=== PATIENT | male | born 1965 | race Caucasian/White ===

== ENCOUNTER 2020-05-29 16:56 | Outpatient (REF) | payer OTHER, SELFPAY ==
--- NOTE | 2020-05-29 | XR_ITS ---
EXAMINATION: XR CHEST CLINICAL INFORMATION: Bronchitis COMPARISON: CXR from 09/13/2019. Chest CT from 12/22/2019. TECHNIQUE: 2 views of the chest were obtained. FINDINGS: The emphysematous lungs are well expanded. There is chronic thickening of the bronchial altman. The findings are consistent with chronic obstructive pulmonary disease. No acute consolidation, pleural effusion or pneumothorax. A skinfold projects over the right upper chest on the frontal radiograph. Cardiomediastinal silhouette silhouette has normal size and contour. There is multilevel osteophyte/enthesophyte formation of the thoracic spine. IMPRESSION: * No evidence of pneumonia. No acute abnormalities. * Pulmonary emphysema and chronic bronchial wall thickening are noted. These findings are consistent with chronic obstructive pulmonary disease.
== END 2020-05-29 16:57 | disposition home or self-care (01) ==
LOC: HO.XRAY 16:56
PROVIDERS: PCP Internal Medicine; Visit Provider Internal Medicine
DX: J40 Bronchitis, not specified as acute or chronic (principal)
CPT/HCPCS: 71046

== ENCOUNTER → 2020-07-05 10:45 | Outpatient (BNVA) | payer OTHER, SELFPAY | PROVIDERS: PCP Internal Medicine; Visit Provider Internal Medicine Pulmonary Disease | DX: Z76.89 Persons encountering health services in other specified circumstances (principal) ==

== ENCOUNTER 2020-07-05 12:54 | Outpatient (REF) | payer OTHER, SELFPAY ==
--- NOTE | 2020-07-05 14:34 | PFT_ITS ---
Forced vital capacity normal. FEV1 moderately reduced. WPD07-20 is markedly reduced. MVV slightly reduced. Post bronchodilator therapy, there is a significant improvement in FVC, [id number], and MVV. Total lung capacity and residual volume normal. Diffusion capacity normal. CONCLUSION: Moderately severe obstructive airway disorder with significant improvement after bronchodilator therapy. These findings are consistent with asthma/COPD overlap syndrome. Clinical correlation recommended. MD EMELI Haley/IVONNE / [id number]
== END 2020-07-05 12:55 | disposition home or self-care (01) ==
LOC: HO.RESP 12:54
PROVIDERS: PCP Internal Medicine; Visit Provider Internal Medicine Pulmonary Disease
DX: J44.9 Chronic obstructive pulmonary disease, unspecified (principal); F17.210 Nicotine dependence, cigarettes, uncomplicated
CPT/HCPCS: 94060; 94727; 94729

== ENCOUNTER 2020-07-16 16:48 | Outpatient (REF) | payer OTHER, SELFPAY ==
--- NOTE | 2020-07-16 16:48 | CT_ITS ---
EXAMINATION: CT CHEST WITHOUT CONTRAST CLINICAL INFORMATION: Emphysema. Abnormal findings on lung field. COMPARISON: Chest x-ray 05/29/[address] chest 12/22/2019 TECHNIQUE: Multidetector volumetric CT imaging of the chest was done. Axial MIP volume rendering provided. Sagittal and coronal reformatted images were obtained. This CT examination was performed using dose optimization techniques as appropriate, variously including the following: *Automated exposure control *Adjustment of mA and/or kV according to patient size (this includes techniques or standardized protocols for targeted exams where dose is matched to indication/reason for exam; i.e. 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 LUNGS: There is paraseptal and mild centrilobular emphysema. There is a tree-in-bud appearance in the right upper lobe posterior segment image 242/7, right middle lobe image 290/7. There is a 4 mm intrafissural left upper lobe nodule, 5 mm nodule along the anterior mediastinal left upper lobe axial image 223/7, subpleural 4 mm nodule in the lingula. Previously visualized small right upper lobe pulmonary nodules are not visualized. There is 5 mm nodular thickening right major fissure axial image 289/7. No focal consolidation visualized. There is mild bronchial wall thickening involving both upper and lower lobes likely related to medium and small airway disease. MEDIASTINUM: There are small shotty lymph nodes in the aortic window and the precarinal space with short axis measurements of 8 mm and 6 mm respectively on axial image 23/3. Heart size and the great vessels are normal caliber. There are coronary artery calcifications present. No pericardial effusion seen. PLEURA: There is no pleural effusion. No pleural mass or thickening. AXILLA: No lymphadenopathy. UPPER ABDOMEN: Visualized liver, pancreas and bilateral adrenal glands are unremarkable. Mild splenomegaly is again visualized. Previously visualized posterior segment right hepatic lobe mass is not included in the [id number] at this time. OSSEOUS STRUCTURES: No lytic or sclerotic process seen. There is moderate ventral spondylosis mid dorsal spine. CT/CT chest wo con IMPRESSION: Emphysema with tree-in-bud appearance and scattered pulmonary nodules in the right middle lobe and lingula are stable. The right upper lobe small nodules have resolved or not visualized at this time. No new nodules or new findings seen. There are reactionary lymph nodes in the mediastinum within normal limits.
== END 2020-07-16 16:49 | disposition home or self-care (01) ==
LOC: HO.CT 16:48
PROVIDERS: Visit Provider Internal Medicine Pulmonary Disease
DX: R91.8 Other nonspecific abnormal finding of lung field (principal)
CPT/HCPCS: 71250

== ENCOUNTER → 2020-07-23 15:58 | Outpatient (BNVA) | payer OTHER, SELFPAY | PROVIDERS: PCP Internal Medicine; Visit Provider Internal Medicine Pulmonary Disease | DX: Z76.89 Persons encountering health services in other specified circumstances (principal) ==

== ENCOUNTER 2020-08-21 14:23 | Outpatient (REF) | payer OTHER, SELFPAY | END 2020-08-21 14:24 | disposition home or self-care (01) | LOC: HO.HOSX 14:23 | PROVIDERS: Visit Provider Orthopaedic Surgery | DX: Z13.89 Encounter for screening for other disorder (principal) ==

== ENCOUNTER 2020-08-22 09:32 | Outpatient (REF) | payer OTHER, SELFPAY ==
--- NOTE | 2020-08-22 09:37 | XR_ITS ---
EXAMINATION: XR SHOULDER, RIGHT CLINICAL INFORMATION: Pain right shoulder. COMPARISON: Radiographs right shoulder 06/13/2016 TECHNIQUE: Right shoulder is imaged in 3 views. FINDINGS: There is no fracture, dislocation, or destructive process. The glenohumeral joint is normal. The acromioclavicular alignment is normal. There is some borderline spurring at the inferolateral acromion and greater tuberosity. No definite rotator cuff calcifications. XR/XR shoulder RT min 2V IMPRESSION: Minor scarring inferolateral acromium and greater tuberosity. No definite rotator cuff calcifications.
== END 2020-08-22 09:33 | disposition home or self-care (01) ==
LOC: HO.HOSX 09:32
PROVIDERS: Visit Provider Orthopaedic Surgery
DX: M75.121 Complete rotator cuff tear or rupture of right shoulder, not specified as traumatic (principal)
CPT/HCPCS: 73030

== ENCOUNTER 2020-08-30 13:16 | Outpatient (REF) | payer OTHER, SELFPAY ==
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
--- NOTE | 2020-08-30 13:40 | FL_ITS ---
EXAMINATION: XR ARTHROGRAM SHOULDER, RIGHT CLINICAL INFORMATION: Impingement syndrome. COMPARISON: 08/22/2020 TECHNIQUE: Fluoroscopically guided intra-articular injection of the right shoulder. FINDINGS: Informed consent was obtained from the patient prior to the procedure. During this process, the procedure and potential alternatives were explained, along with the intended outcome and benefits. The risks of the procedure, as well as the risk of not doing the procedure, were discussed. The patient was given the opportunity to ask questions regarding the procedure and appeared competent to make medical decisions. A signed consent form which documents this discussion was placed in the medical record. Using sterile technique and fluoroscopic guidance a 22-gauge spinal needle was directed down onto the inferior aspect of the right glenohumeral joint. Small amount of contrast was injected demonstrating intra-articular positioning of the needle. A total of 19 mL of a mixture of 20 mL of sterile saline with 0.1 mL of Gadavist was then instilled into the right shoulder joint space. Patient tolerated procedure without difficulty. FLUOROSCOPY TIME: 0.4 minutes DOSE AREA PRODUCT: 1.757 Gy-cm2 IMAGES: 2 images. FL/FL arthrogram shoulder RT IMPRESSION: Right shoulder intra-articular injection for MRI.
== END 2020-08-30 13:17 | disposition home or self-care (01) ==
LOC: HO.XRAY 13:16
PROVIDERS: Visit Provider Orthopaedic Surgery
DX: M75.41 Impingement syndrome of right shoulder (principal); M75.121 Complete rotator cuff tear or rupture of right shoulder, not specified as traumatic
CPT/HCPCS: 23350; 73040; 73222; A9585

== ENCOUNTER → 2020-10-02 08:24 | Outpatient (BNVA) | payer OTHER, SELFPAY | PROVIDERS: PCP Internal Medicine; Visit Provider Orthopaedic Surgery ==

== ENCOUNTER 2020-10-25 06:15 | Day surgery (SDC) | payer OTHER, SELFPAY ==
[2020-10-18 19:34] VITALS: BMI 27.1
--- NOTE | 2020-10-24 10:44 | P.CONAN_ITS ---
Documented by User: Naina Sheikh 10/24/20 10:48 HPI - Anesthesia Eval Consult details Narrative: 55yo for Right Shoulder Rotator Cuff Repair [facility] Active Problems Active Problems: All Active Problems (Updated 10/18/20 @ 19:37 by Laney Brumfield RN) COPD (chronic obstructive pulmonary disease) (Acute) Pulmonary nodules (Acute) Complete tear of right rotator cuff (Acute) Past Medical History Medical History (Updated 10/24/20 @ 10:46 by Naina Sheikh) Anemia with low platelet count COPD (chronic obstructive pulmonary disease) ETOH abuse Pulmonary nodules Surgical History Surgical History History of colonoscopy History of liver biopsy Social History Social History (Updated 08/22/20 @ 09:48 by Gayle Santana CMA) Smoking Status: Current every day smoker Cigarettes Per Day: 10 Years Smoked: 35 yrs Smoked in Last 30 Days: Yes Patient Interested in Nicotine Replacement: No Patient Given Instructions on How to Stop Smoking: No Use of substances other than those prescribed or required for medical reasons: No Advance Directives: No Advance Directives Information Provided: No Advance Directives on File: No Current occupational status: employed 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 These findings are consistent with asthma/COPD overlap syndrome. Assessment and Plan Assessment Anesthesia Assessment: Chart Reviewed Documented by User: Maurice Majano MD 10/25/20 08:17 [facility] Past Medical History Medical History (Updated 10/24/20 @ 10:46 by Naina Sheikh) Anemia with low platelet count COPD (chronic obstructive pulmonary disease) ETOH abuse Pulmonary nodules Surgical History Surgical History History of colonoscopy History of liver biopsy Social History Social History (Updated 08/22/20 @ 09:48 by Gayle Santana CMA) Smoking Status: Current every day smoker Cigarettes Per Day: 10 Years Smoked: 35 yrs Smoked in Last 30 Days: Yes Patient Interested in Nicotine Replacement: No Patient Given Instructions on How to Stop Smoking: No Use of substances other than those prescribed or required for medical reasons: No Advance Directives: No Advance Directives Information Provided: No Advance Directives on File: No Current occupational status: employed 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 Meds Allergies Allergy/AdvReac Type Severity Reaction Status Date / Time No Known Allergies Allergy Verified 10/18/20 19:32 Home Medications Medication Instructions Recorded Confirmed Last Taken Type albuterol sulfate 90 mcg/actuation 2 puff PO QID 07/05/20 10/18/20 Unknown History aerosol inhaler Exam Airway Mallampati Class: II TM Dist: >3cm Neck ROM: Full Denture: Upper Loose/Missing/Broken Teeth: Yes Heart: RRR Lungs: Cough, NL Assessment and Plan Assessment Anesthesia Assessment: Anesthesia Plan Discussed and Chart Reviewed Final Anesthetic Review NPO: Yes ASA Class: III Final Preanesthetic Review: No Changes in Pt Med Stat, Meds/Allgs Chart Reviewed, Consent Obtained/Reviewed and Anes Risks/Benef Reviewed Patient Risk: High Procedure Risk: Intermediate Anesthetic Plan Anesthetic Plan: GA and Regional Block Disposition: Standard PACU
[2020-10-25] VITALS (9 sets, daily range): BP systolic 104–145; BP diastolic 72–99; PULSE 71–85; RESP 16–19; TEMP 36.2–36.6; O2SAT 95–96
--- NOTE | 2020-10-25 | ECG_ITS ---
Test Reason : RBBB PREOP Blood Pressure : / mmHG Vent. Rate : 080 BPM Atrial Rate : 080 BPM P-R Int : 160 ms QRS Dur : 152 ms QT Int : 414 ms P-R-T Axes : 071 -56 028 degrees QTc Int : 477 ms Normal sinus rhythm Right bundle branch block Left anterior fascicular block Bifascicular block Abnormal ECG When compared with ECG of 04-JUN-2013 21:22, Right bundle branch block is now Present Referred By: Naina Sheikh Electronically Signed By:Rafael Petty
[2020-10-25 06:42] LABS: Hematocrit 41.7 % (42-52); Hemoglobin 13.8 g/dl (14.0-18.0); Mean Corpuscular HGB Conc 33.1 g/dl (31.0-36.0); Mean Corpuscular Hemoglobin 31.7 pg (27.0-33.0); Mean Corpuscular Volume 95.6 fL (80-98); Mean Platelet Volume 11.4 fL (9.4-12.4); Red Blood Count 4.36 X10*6/uL (4.60-5.80); Red Cell Distribution Width 12.6 % (11.0-16.0)
[2020-10-25 06:43] LABS: Platelet Count 79 X10*3/uL (160-400); White Blood Count 2.4 X10*3/uL (4.8-10.8)
[2020-10-25 07:16] LABS: Anion Gap 9 (12-20); Blood Urea Nitrogen 16 mg/dL (9-16); Calcium 8.5 mg/dL (8.4-10.2); Carbon Dioxide 27 mmol/L (22-29); Chloride 110 mmol/L (96-108); Creatinine Clr Calc Pharmacy 127.8; Estimated Glomerular Filt Rate > 60; Glucose Fasting 127 mg/dL (60-99); Sodium 142 mmol/L (135-145)
--- NOTE | 2020-10-25 07:19 | MHC.SHP ---
Pre-Procedural Eval Section A The patient is an INPATIENT: No Changes since office visit: No Cold of Flu in the past 2 weeks, No New Medical Problems, No Changes in Medication and No Patient answered all questions The History & Physical has been completed within 30 days and I have reviewed it.: Yes Section B Chief Complaint: rotator cuff tear Allergies: Allergies Allergy/AdvReac Type Severity Reaction Status Date / Time No Known Allergies Allergy Verified 10/18/20 19:32 Plan I have reviewed the history and physical and performed a pertinent physical examination on my patient. No changes have occurred unless specified.
--- NOTE | 2020-10-25 09:25 | P.OP_ITS ---
Operative Note Operative Note Date of Service: 10/25/20 Narrative: OPERATIVE NOTE ROTATOR CUFF REPAIR SURGEON: Dr Schmitz (Ashleigh) Instrum DIRECTOR OF NURSES REGISTRY: Cem HILARIO , Josy HILARIO Preop diagnosis: Right Rotator cuff tear POSTOP DIAGNOSIS: The same OPERATIVE PROCEDURE: Right ROTATOR CUFF REPAIR WITH ACROMIOPLASTY OPERATIVE DETAILS Under a regional and general anesthetic the patient was placed initially supine on the operating table. An EUA was performed demonstrating full range of motion with no evidence of instability. The patient was then positioned into a beach chair position with the arm free. The shoulder was then prepped and draped in standard fashion. Surgical time-out was then performed patient's identified procedure confirmed site confirmed medical and allergy history reviewed preoperative antibiotics given standard DVT prophylaxis in place all other items discussed and agreed upon. Standard anterolateral approach to the shoulder was carried out. It was taken down through subcutaneous tissue. Hip hemostasis achieved along the way using electrocautery. This brought us down to the level of the deltoid. The anterior aspect was elevated subperiosteal E from the anterior edge of the acromion a. Laterally it followed the anterior rhaphe for distance of approximately 2 cm. An 0 Ethibond suture was placed at the inferior end to prevent further split. There was a large anterior osteophyte. This was resected using an osteotome anteriorly in line with the anterior edge of the clavicle and then at a subacromial past was made to 5th thin out the acromion. Following this the oval leonela was used in order to flatten the acromion from anterior to posterior medial to lateral. The wound was then thoroughly irrigated. At this point there was abundant room for the rotator cuff and subsequent to this we turned our attention to the cuff itself. Bursectomy is carried out. The rotator cuff tear was identified. The cuff had a small U shaped tear from the greater tuberosity which was approximately 2 cm in anterior to posterior dimension and retracted approximately 1 cm. Multiple O Ethibond sutures were then placed on the leading edge of the cuff tear. Following this a bony trough was prepared in standard fashion. Two Suture anchors were placed. Joint itself was irrigated. The cuff was then repaired using horizontal mattress sutures from posterior to anterior. Following this they were tied down with the arm abducted. This gave a fixation that brought the edge into the trough nicely. Up bio conductive patch was then placed in standard fashion over the repair. At this point the arm could be brought down to the side had good range of motion and the repair was complete and therefore we proceeded to closure. The wound was thoroughly irrigated. The deltoid was repaired to the leading edge of the acromion with interrupted 1. Ethibond sutures through bone. The lateral split was closed with 1. Dexon. The skin was then approximated using interrupted 2-0 Dexon and the skin was closed with subcuticular V lock suture. Dermabond Steri-Strips and a sterile dressing were then applied. The arm was placed in a shoulder immobilizer. The patient's anesthesia was then reversed. They were transferred supine to the room bed then taken to recovery room in good condition. Intraoperatively there was 50 cc of blood loss. No drug transfusions or complications
[2020-10-25] MEDS: HYDROmorphone HCl 0.5 MG/0.5 ML SYRINGE IVPUSH (09:51)
[2020-10-25] MEDS: Acetaminophen 325 MG TABLET 650 MG PO (10:02)
[2020-10-25] MEDS: oxyCODONE HCl Immed Release 5 MG TABLET PO (10:02)
== END 2020-10-25 10:57 | disposition home or self-care (01) ==
PROVIDERS: Nurse Practitioner; Visit Provider Orthopaedic Surgery
PROC: (CPT 23420; principal; 2020-10-25 07:30)
DX: M75.121 Complete rotator cuff tear or rupture of right shoulder, not specified as traumatic (principal); M25.711 Osteophyte, right shoulder; D64.9 Anemia, unspecified; D69.6 Thrombocytopenia, unspecified; J44.9 Chronic obstructive pulmonary disease, unspecified; R91.8 Other nonspecific abnormal finding of lung field; Z79.899 Other long term (current) drug therapy; F17.210 Nicotine dependence, cigarettes, uncomplicated; F10.10 Alcohol abuse, uncomplicated
CPT/HCPCS: 23420; 36415; 80048; 85027; 85060; 88304; 88311; 93005; 97161; C1713; C1781; J0690; J1170; J2250; J2405

== ENCOUNTER → 2020-11-06 09:13 | Outpatient (BNVA) | payer OTHER, SELFPAY | PROVIDERS: Visit Provider Physician Assistant ==

== ENCOUNTER → 2020-12-11 08:35 | Outpatient (BNVA) | payer OTHER, SELFPAY | PROVIDERS: Visit Provider Orthopaedic Surgery ==

== ENCOUNTER → 2021-01-08 08:04 | Outpatient (BNVA) | payer OTHER, SELFPAY | PROVIDERS: Visit Provider Orthopaedic Surgery ==

== ENCOUNTER → 2021-02-05 07:52 | Outpatient (BNVA) | payer OTHER, SELFPAY | PROVIDERS: Visit Provider Orthopaedic Surgery ==

== ENCOUNTER → 2021-04-02 07:54 | Outpatient (BNVA) | payer OTHER, SELFPAY | PROVIDERS: Visit Provider Orthopaedic Surgery ==

== ENCOUNTER → 2021-08-29 14:45 | Outpatient (BNVA) | payer OTHER, SELFPAY | PROVIDERS: Visit Provider Orthopaedic Surgery ==

== ENCOUNTER 2021-09-24 18:22 | Outpatient (REF) | payer OTHER, SELFPAY ==
--- NOTE | ~2021-09-24 | MR_ITS ---
EXAMINATION: MRI OF THE LEFT SHOULDER WITHOUT CONTRAST CLINICAL INFORMATION: Patient reports left shoulder pain, limited range of motion. COMPARISON: None. TECHNIQUE: MRI left shoulder was performed without contrast and high-field MRI scanner. FINDINGS: ROTATOR CUFF: Supraspinatus: There is a small partial-thickness versus a full-thickness insertional tear involving the middle one-third fibers of the supraspinatus tendon. The tear appears to involve the bursal side and intrasubstance portion of the tendon. I am not certain whether or not it extend to the articular side. The tear extends along the insertional footprint. See coronal image 9 series 6. The tear measures 3 mm medial to lateral and 2 mm AP. The remaining tendon is intact. The muscle is normal. The remaining rotator cuff muscles and tendons are normal. BICEPS: Normal. CORACOACROMIAL ARCH: There is mild arthrosis of the acromioclavicular joint. There is slight concavity of the undersurface of the acromion. There is no subacromial spur. LABRUM/CAPSULE: Intact. Glenohumeral joint: Normal. BURSA: Normal. MR/MR shoulder LT wo con IMPRESSION: Small insertional tear of the supraspinatus tendon which appears either high-grade partial-thickness or full-thickness. Mild arthrosis of the acromioclavicular joint.
== END 2021-09-24 18:23 | disposition home or self-care (01) ==
LOC: HO.MRI 18:22
PROVIDERS: Visit Provider Orthopaedic Surgery
DX: R29.898 Other symptoms and signs involving the musculoskeletal system (principal)
CPT/HCPCS: 73221

== ENCOUNTER → 2021-10-17 15:10 | Outpatient (BNVA) | payer OTHER, SELFPAY | PROVIDERS: Visit Provider Orthopaedic Surgery ==

== ENCOUNTER 2021-10-18 16:20 | Emergency (ER) | payer OTHER, SELFPAY ==
--- NOTE | ~2021-10-18 | CT_ITS ---
EXAMINATION: CT ANGIOGRAM OF THE CHEST WITH AND WITHOUT CONTRAST (CT PULMONARY ANGIOGRAM FOR PE) CLINICAL INFORMATION: Reason for Exam cp, sob, + dimer COMPARISON: CT chest 07/16/2020 CT abdomen 03/31/2018 TECHNIQUE: Prior to contrast administration, noncontrast localization images were obtained. Subsequently, multidetector volumetric imaging was performed from the thoracic inlet to below the diaphragms following the administration of 71 mL Omnipaque 350 intravenous contrast. No contrast reaction reported Sagittal, coronal, and MIP oblique sagittal reformatted images were obtained on the CT workstation, uploaded to PACS, and reviewed. This CT examination was performed using dose optimization techniques as appropriate, variously including the following: *Automated exposure control *Adjustment of mA and/or kV according to patient size (this includes techniques or standardized protocols for targeted exams where dose is matched to indication/reason for exam; i.e. extremities or head) *Use of iterative reconstruction technique Total exam dose-length product 373 mGy-cm FINDINGS: QUALITY OF STUDY/CONTRAST BOLUS: Suboptimal. The aorta as well as pulmonary veins show benign enhancement the arteries. PULMONARY ARTERIES: No central or large segmental pulmonary emboli. THORACIC AORTA: No aneurysm or dissection. LUNG: Again seen are changes of paraseptal emphysema. Small pulmonary nodules are seen the largest measuring about 5 mm abutting the major fissure in the left lower lobe (7:257 compare prior 603:257). These appear unchanged when compared. Areas of tree-in-bud formation is present peripherally which appears no different when compared to the prior study from 07/16/2020 findings are more in keeping with airway disease rather than metastatic disease PLEURA: No pleural effusion or pneumothorax. MEDIASTINUM: Normal heart size. No pericardial effusion. Again seen are some small mediastinal lymph nodes no hilar or mediastinal lymphadenopathy. No evidence of septal bowing or right heart strain. CHEST WALL/AXILLA: No axillary or internal mammary lymphadenopathy. OSSEOUS STRUCTURES: Mild degenerative changes present in the spine. No bony destructive lesions seen. UPPER ABDOMEN: There is marked splenomegaly with the spleen measuring at least 17 cm in greatest length., Similar to prior abdominal CT No reflux of contrast into the hepatic veins to suggest elevated right heart pressures. CT/CT angio chest PE protocol IMPRESSION: 1. No evidence of pulmonary emboli 2. Unchanged small pulmonary nodules. 3. Extensive tree-in-bud formation peripherally, also unchanged. VTE: negative. The study is somewhat limited by the quality of the bolus.
[2021-10-18 16:23] VITALS: BP 123/83; PULSE 107; RESP 16; TEMP 37; O2SAT 95; BMI 26.9
--- NOTE | 2021-10-18 16:32 | ECG_ITS ---
Test Reason : cough Blood Pressure : / mmHG Vent. Rate : 103 BPM Atrial Rate : 103 BPM P-R Int : 154 ms QRS Dur : 144 ms QT Int : 374 ms P-R-T Axes : 069 -68 040 degrees QTc Int : 489 ms Sinus tachycardia Right bundle branch block Left anterior fascicular block Bifascicular block Abnormal ECG When compared with ECG of 25-OCT-2020 06:52, No significant change was found Referred By: Lily Crowell Electronically Signed By:Rafael Petty
[2021-10-18 16:52] LABS: MANUAL DIFF FLAG NO
[2021-10-18 16:53] LABS: Basophils Percent Auto 0.2 % (0-2); Imm Gran Abs Auto 0.03 X10*3/uL (0.00-0.03); Imm Gran Pct Auto 0.5 % (0.0-0.4); PLT CLUMP 1; SCAN SMEAR FLAG 1
[2021-10-18 16:55] LABS: Eosinophils Absolute Auto 0.9 X10*3/uL (0.0-0.4); Eosinophils Percent Auto 15.5 % (0-4); Hematocrit 40.6 % (42.0-52.0); Hemoglobin 13.5 g/dl (14.0-18.0); Lymphocytes Absolute Auto 0.7 X10*3/uL (1.2-4.9); Lymphocytes Percent Auto 13.5 % (20-40); Mean Corpuscular HGB Conc 33.3 g/dl (31.0-36.0); Mean Corpuscular Hemoglobin 31.3 pg (27.0-33.0); Monocytes Absolute Auto 0.2 X10*3/uL (0.1-1.2); Monocytes Percent Auto 3.8 % (2-11); Neutrophils Absolute Auto 3.7 x10*3/uL (2.0-8.3); Neutrophils Percent Auto 66.5 % (45-73); Red Blood Count 4.32 X10*6/uL (4.60-5.80); Red Cell Distribution Width 12.6 % (11.0-16.0)
[2021-10-18 16:57] LABS: Platelet Count 112 X10*3/uL (160-400); White Blood Count 5.5 X10*3/uL (4.8-10.8)
[2021-10-18 17:00] LABS: INTERNATIONAL NORM RATIO 1.2 (0.9-1.1); Prothrombin Time 13.2 SEC (9.9-13.0)
[2021-10-18 17:10] LABS: Alanine Aminotransferase 17 U/L (0-40); Albumin Level 4.6 g/dL (3.5-5.0); Alkaline Phosphatase 66 U/L (39-117); Anion Gap 12 (12-20); Aspartate Amino Transferase 16 U/L (5-37); Bilirubin Direct 0.3 mg/dL (0.0-0.5); Bilirubin Total 0.8 mg/dL (0.0-1.0); Blood Urea Nitrogen 13 mg/dL (9-16); Calcium 9.6 mg/dL (8.4-10.2); Carbon Dioxide 28 mmol/L (22-29); Chloride 103 mmol/L (96-108); Creatinine Clr Calc Pharmacy 107.6; Estimated Glomerular Filt Rate > 60; Glucose Random 123 mg/dL (60-115); Magnesium 2.1 mg/dL (1.6-2.6); Sodium 139 mmol/L (135-145); Total Protein 7.1 g/dL (6.5-8.0)
[2021-10-18 17:14] LABS: B Type Natriuretic Peptide 12 pg/mL (<100); Troponin-I High Sensitivity < 3.5 ng/L (<3.5-35.0)
[2021-10-18 17:16] LABS: Lactic Acid 1.3 mmol/L (0.5-2.0)
[2021-10-18 19:41] VITALS: BP 127/83; PULSE 86; RESP 16; O2SAT 97
[2021-10-18 19:49] LABS: D Dimer High Sensitivity 239 NG/ML
--- NOTE | 2021-10-18 20:06 | ED.URI ---
HPI - URI/Sore Throat General Chief Complaint: Upper Respiratory Symptoms Stated Complaint: pneumonia Time Seen by Provider: 10/18/21 16:31 Source: patient Mode of arrival: ambulatory Limitations: no limitations History of Present Illness HPI Narrative: This is a 56-year-old male no significant medical history presenting to the emergency department with weeks of upper respiratory symptoms X1 month. Patient has been seen at an urgent care multiple times was diagnosed with pneumonia on October 14 put on amoxicillin for 7 days. Patient has been taking antibiotics with no relief. Today he is coming in reporting a productive cough of yellow sputum, shortness of breath, malaise, fevers, chills, night sweats. He tells me that this has been going on since early September where he was seen for the same thing. He tells me he is very uncomfortable. What is making him most uncomfortable as a cough. He denies chest pain, nausea, vomiting, abdominal pain, weakness, headache, dizziness. Patient is not vaccinated against COVID. MD elicited complaint: fever and cough Pertinent past history: pneumonia (diagnosed w/ pna on 10/14/21) Onset (ago): week(s) (3) Consistency: constant Severity: severe Description of mucous: yellow and green Able to tolerate fluids by mouth: Yes Exacerbating factors: nothing Relieving factors: nothing Related Data Home Medications Medication Instructions Recorded Confirmed albuterol sulfate 90 mcg/actuation 2 puff PO QID 07/05/20 10/18/20 aerosol inhaler Previous Rx's Medication Instructions Recorded umeclidinium 62.5 mcg-vilanterol 1 inh INHALATION DAILY 30 Days #1 07/05/20 25 mcg/actuation powdr for ea inhalation (Anoro Ellipta) oxycodone 10 mg tablet 10 mg PO Q4-6H #40 tab 10/25/20 oxycodone 5 mg tablet 5 mg PO Q12H PRN 7 Days #14 tab 11/06/20 diclofenac sodium 75 mg 75 mg PO BID #60 tab 12/11/20 tablet,delayed release albuterol sulfate 90 mcg/actuation 2 inh INHALATION Q4-6H PRN #1 ea 10/18/21 breath activated powder inhaler amoxicillin 875 mg-potassium 1 tab PO BID 7 Days #14 tab 10/18/21 clavulanate 125 mg tablet azithromycin 250 mg tablet See Rx Instructions .ROUTE 10/18/21 .COMPLEX #6 tab benzonatate 100 mg capsule 100 mg PO BID PRN #20 cap 10/18/21 prednisone 20 mg tablet 20 mg PO DAILY 5 Days #5 tab 10/18/21 Allergies Allergy/AdvReac Type Severity Reaction Status Date / Time No Known Allergies Allergy Verified 08/29/21 14:55 Review of Systems Review of Systems: Constitutional : No Weight loss, + Fever, + Chills, + Fatigue, + Malaise ENT/Mouth : No sore throat, No Rhinorrhea Eyes: No Eye Pain, No Swelling, No Redness Cardiovascular : No Chest Pain, + SOB, No Dyspnea on Exertion, No Orthopnea, No Edema, No Palpitations Respiratory : + Cough, + Sputum, + Wheezing Gastrointestinal : No Nausea, No Vomiting, No Diarrhea, No Constipation, No abdominal Pain, No Hematochezia, No Melena Genitourinary : No Dysuria, No Urinary Frequency, No Hematuria, Musculoskeletal : No joint pain, No Myalgias, No Joint Swelling Skin : No Skin Lesions, No rash Neuro : No Weakness, No Numbness, No Dizziness, No Headache Psych : No Anxiety/Panic, No Depression All other systems reviewed and are negative Yes all other systems are reviewed and are negative FORMERLY [facility], 1928–1983 Past Medical History Attestation statement: The following information was validated with the patient. 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 Oriented X3.? No acute distress.? Patient with productive cough, yellow sputum. Thick Head: Normocephalic, atraumatic, no step-offs or deformities Eyes: Pupils equal, round and reactive to light.? ENT: Pharynx normal.? Neck: Normal inspection.? Neck supple.? CVS: Normal heart rate and rhythm.? Pulses normal.? Respiratory: No respiratory distress. + diminished breath sounds bilaterally with wheezing, and rhonchi. Abdomen: Soft and nontender.? Skin: Skin warm and dry.? Normal skin color.? Normal skin turgor.? Extremities: No lower extremity edema.? No calf ttp. 5/5 strength to bilateral upper and lower extremities Back: No midline tenderness, no C-spine tenderness, full range of motion, no CVA tenderness bilaterally Neuro: Oriented X 3.? No motor deficit.? No sensory deficit. CN 2-12 intact Course Reevaluation(s) Reevaluation #1: CBC appears to be at patient's baseline. Thrombopenia noted, again patient's baseline. No acute electrolyte abnormalities. Troponin negative, EKG nonischemic. D-dimer slightly elevated will rule out PE have ordered a CTA. Time: 20:07 Reevaluation #2: CT with no evidence of pulmonary emboli, unchanged small pulmonary nodules, extensive tree-in-bud formation peripherally. At this time patient will be treated for bacterial bronchitis. I will start him on a short course of steroids, give him an inhaler, Tessalon Perles for cough. Advised him to return with new or worsening symptoms. Comfortable discharge home. Time: 22:33 MDM - URI/Sore Throat [facility] Narrative Medical decision making narrative: 2033 56 yo m pmhx copd presents the emergency department with upper respiratory symptoms x3 weeks progressively worsening. Was treated with a course of amoxicillin with no improvement. Upon physical examination patient with productive cough of yellow thick sputum. Diminished breath sounds bilaterally with wheezing and crackles. Regular rate and rhythm. Vital signs stable afebrile, not tachycardic. Saturating 98% on room air. Negative Leanne bilaterally Due to patient's physical examination will order a DuoNeb at this time. Will rule out ACS. Will also rule out PE has patient's symptoms are non resolving over the past 3 weeks. Plan at this time is labs, EKG, imaging. Medical Records Attestation: I reviewed the patient's medical records. Lab Data Attestation: I reviewed the patient's lab results. Result diagrams: 10/18/21 16:44 10/18/21 16:44 Labs: Lab Results 10/18/21 10/18/21 10/18/21 Range/Units 16:44 16:44 16:44 WBC 5.5 (4.8-10.8) X10*3/uL RBC 4.32 L (4.60-5.80) X10*6/uL Hgb 13.5 L (14.0-18.0) g/dl Hct 40.6 L (42.0-52.0) % MCV 94.0 (80.0-98.0) fL MCH 31.3 (27.0-33.0) pg MCHC 33.3 (31.0-36.0) g/dl RDW 12.6 (11.0-16.0) % Plt Count 112 L (160-400) X10*3/uL MPV 11.0 (9.4-12.4) fL Immature Gran % (Auto) 0.5 H (0.0-0.4) % Neut % (Auto) 66.5 (45-73) % Lymph % (Auto) 13.5 L (20-40) % Bureau % (Auto) 3.8 (2-11) % Eos % (Auto) 15.5 H (0-4) % Baso % (Auto) 0.2 (0-2) % Lymph # (Auto) 0.7 L (1.2-4.9) X10*3/uL Bureau # (Auto) 0.2 (0.1-1.2) X10*3/uL Eos # (Auto) 0.9 H (0.0-0.4) X10*3/uL Baso # (Auto) 0.0 (0.0-0.2) X10*3/uL Abs Immat Gran (auto) 0.03 (0.00-0.03) X10*3/uL Absolute Neuts (auto) 3.7 (2.0-8.3) x10*3/uL Absolute Nucleated RBC 0.000 (0.0-0.012) X10*3/uL Nucleated RBC % (auto) 0.0 (0.0-0.2) /100WBC PT 13.2 H (9.9-13.0) SEC INR 1.2 H (0.9-1.1) D-Dimer High Sensitivty 239 NG/ML Sodium 139 (135-145) mmol/L Potassium 4.0 (3.3-5.1) mmol/L Chloride 103 (96-108) mmol/L Carbon Dioxide 28 (22-29) mmol/L Anion Gap 12 (12-20) BUN 13 (9-16) mg/dL Creatinine 0.88 (0.5-1.4) mg/dL Estim Creat Clear Calc 107.6 Estimated GFR > 60 Random Glucose 123 H (60-115) mg/dL Lactic Acid (0.5-2.0) mmol/L Calcium 9.6 D (8.4-10.2) mg/dL Magnesium 2.1 (1.6-2.6) mg/dL Total Bilirubin 0.8 (0.0-1.0) mg/dL Direct Bilirubin 0.3 (0.0-0.5) mg/dL AST 16 (5-37) U/L ALT 17 (0-40) U/L Alkaline Phosphatase 66 (39-117) U/L Troponin I High Sens (<3.5-35.0) ng/L B-Natriuretic Peptide (<100) pg/mL Total Protein 7.1 (6.5-8.0) g/dL Albumin 4.6 (3.5-5.0) g/dL 10/18/21 10/18/21 Range/Units 16:44 16:44 WBC (4.8-10.8) X10*3/uL RBC (4.60-5.80) X10*6/uL Hgb (14.0-18.0) g/dl Hct (42.0-52.0) % MCV (80.0-98.0) fL MCH (27.0-33.0) pg MCHC (31.0-36.0) g/dl RDW (11.0-16.0) % Plt Count (160-400) X10*3/uL MPV (9.4-12.4) fL Immature Gran % (Auto) (0.0-0.4) % Neut % (Auto) (45-73) % Lymph % (Auto) (20-40) % Bureau % (Auto) (2-11) % Eos % (Auto) (0-4) % Baso % (Auto) (0-2) % Lymph # (Auto) (1.2-4.9) X10*3/uL Bureau # (Auto) (0.1-1.2) X10*3/uL Eos # (Auto) (0.0-0.4) X10*3/uL Baso # (Auto) (0.0-0.2) X10*3/uL Abs Immat Gran (auto) (0.00-0.03) X10*3/uL Absolute Neuts (auto) (2.0-8.3) x10*3/uL Absolute Nucleated RBC (0.0-0.012) X10*3/uL Nucleated RBC % (auto) (0.0-0.2) /100WBC PT (9.9-13.0) SEC INR (0.9-1.1) D-Dimer High Sensitivty NG/ML Sodium (135-145) mmol/L Potassium (3.3-5.1) mmol/L Chloride (96-108) mmol/L Carbon Dioxide (22-29) mmol/L Anion Gap (12-20) BUN (9-16) mg/dL Creatinine (0.5-1.4) mg/dL Estim Creat Clear Calc Estimated GFR Random Glucose (60-115) mg/dL Lactic Acid 1.3 (0.5-2.0) mmol/L Calcium (8.4-10.2) mg/dL Magnesium (1.6-2.6) mg/dL Total Bilirubin (0.0-1.0) mg/dL Direct Bilirubin (0.0-0.5) mg/dL AST (5-37) U/L ALT (0-40) U/L Alkaline Phosphatase (39-117) U/L Troponin I High Sens < 3.5 (<3.5-35.0) ng/L B-Natriuretic Peptide 12 (<100) pg/mL Total Protein (6.5-8.0) g/dL Albumin (3.5-5.0) g/dL ECG Data Attestation: I personally reviewed and interpreted this ECG as follows: ECG interpretation date: 10/18/21 ECG interpretation time: 20:35 Prior ECG tracings: available for review Interpretation: Ventricular rate of 103, TX normal, QRS normal, QT/QTC normal. EKG shows sinus tachycardia with right bundle branch block. No ST elevations or inversions concerning for ischemia. When compared to EKG from October 2020 no significant changes. Procedures Procedure Narrative Procedure Narrative: 2004 Critical Care Time Critical Care Time Critical Care Time: No Discharge Plan Discharge Clinical Impression: Bronchitis, Viral pneumonia Patient Disposition: Home, Self-Care Instructions: Acute Bronchitis (ED) Additional Instructions: Take your medications as prescribed. If you were prescribed antibiotics today, it is important that you take your medication to their entirety, do not skip any doses, do not finish them early. Follow-up with your primary care provider this week. Follow-up with Cardiology if symptoms do not improve within a few weeks. Return to the emergency department with new or worsening symptoms. In case of emergency call 911 IMPRESSION: 1.? No evidence of pulmonary emboli 2.? Unchanged small pulmonary nodules. 3.? Extensive tree-in-bud formation peripherally, also unchanged. ? VTE: negative. The study is somewhat limited by the quality of the bolus. I will call you have your flu/COVID/RSV comes back positive. You will not get a call if there negative. Prescriptions: New albuterol sulfate 90 mcg/actuation aerosol powdr breath activated 2 inh inhalation Q4-6H PRN (Reason: shortness of breath or wheezing) Qty: 1 0RF azithromycin 250 mg tablet See Rx Instructions .ROUTE .COMPLEX Qty: 6 0RF Rx Instructions: For 250 mg dose pack: take 500 mg today (day 1), then 250 mg for 4 days (days 2-5) benzonatate 100 mg capsule 100 mg PO BID PRN (Reason: cough) Qty: 20 0RF prednisone 20 mg tablet 20 mg PO DAILY 5 Days Qty: 5 0RF amoxicillin-pot clavulanate 875-125 mg tablet 1 tab PO BID 7 Days Qty: 14 0RF No Action oxycodone 10 mg tablet 10 mg PO Q4-6H Qty: 40 0RF oxycodone 5 mg tablet 5 mg PO Q12H PRN (Reason: pain) 7 Days Qty: 14 0RF diclofenac sodium 75 mg tablet,delayed release (DR/EC) 75 mg PO BID Qty: 60 2RF albuterol sulfate 90 mcg/actuation HFA aerosol inhaler 2 puff PO QID 0RF Anoro Ellipta 62.5-25 mcg/actuation blister with device 1 inh inhalation DAILY 30 Days Qty: 1 6RF Referrals: Jonel Forrester MD [Primary Care Provider] - 2 days Stand Alone Forms: Work/School Release
[2021-10-18] MEDS: Albuterol/Iprat 2.5/0.5MG 3 ML AMPUL.NEB INHALE (20:17)
[2021-10-18 20:20] VITALS: PULSE 93; O2SAT 98
[2021-10-18] MEDS: iohexoL 350 MG/ML 100 ML INFUS..BTL IV (21:07)
[2021-10-18] MEDS: Albuterol Sulfate 90 MCG 8 GM INHALER 2 PUFF INHALE (22:26)
[2021-10-18 23:18] LABS: COVID-19 Test Negative (Negative)
== END 2021-10-18 22:50 | disposition home or self-care (01) ==
PROVIDERS: Emergency Medicine; Physician Assistant; Emergency Provider Emergency Medicine Emergency Medical Services; PCP Internal Medicine
DX: J40 Bronchitis, not specified as acute or chronic (principal); J12.9 Viral pneumonia, unspecified; Z87.891 Personal history of nicotine dependence; Z20.822 Contact with and (suspected) exposure to COVID-19; Z79.899 Other long term (current) drug therapy
CPT/HCPCS: 0241U; 36415; 71275; 80048; 80076; 83605; 83735; 83880; 84484; 85025; 85379; 85610; 87040; 87635; 93005; 94640; 99283; 99284; Q9967

== ENCOUNTER → 2021-11-20 14:45 | Outpatient (BNVA) | payer OTHER, SELFPAY | PROVIDERS: PCP Internal Medicine; Visit Provider Internal Medicine Pulmonary Disease | DX: Z13.89 Encounter for screening for other disorder (principal) ==

== ENCOUNTER 2021-12-03 16:05 | Outpatient (REF) | payer OTHER, SELFPAY ==
[2021-12-03 16:35] LABS: Eosinophils Percent Auto 0.5 % (0-4); Mean Corpuscular Volume 96.3 fL (80.0-98.0); Mean Platelet Volume 11.1 fL (9.4-12.4); PLT CLUMP 1; SCAN SMEAR FLAG 1
[2021-12-03 16:37] LABS: Hematocrit 41.7 % (42.0-52.0); Hemoglobin 13.4 g/dl (14.0-18.0); Imm Gran Abs Auto 0.03 X10*3/uL (0.00-0.03); Imm Gran Pct Auto 0.5 % (0.0-0.4); Lymphocytes Absolute Auto 0.7 X10*3/uL (1.2-4.9); Lymphocytes Percent Auto 10.8 % (20-40); Mean Corpuscular HGB Conc 32.1 g/dl (31.0-36.0); Mean Corpuscular Hemoglobin 30.9 pg (27.0-33.0); Monocytes Absolute Auto 0.2 X10*3/uL (0.1-1.2); Monocytes Percent Auto 2.5 % (2-11); Neutrophils Absolute Auto 5.4 x10*3/uL (2.0-8.3); Neutrophils Percent Auto 85.7 % (45-73); Red Blood Count 4.33 X10*6/uL (4.60-5.80); Red Cell Distribution Width 13.1 % (11.0-16.0)
[2021-12-03 16:47] LABS: MANUAL DIFF FLAG NO; Platelet Count 110 X10*3/uL (160-400); White Blood Count 6.3 X10*3/uL (4.8-10.8)
== END 2021-12-03 16:06 | disposition home or self-care (01) ==
LOC: HO.LAB 16:05
PROVIDERS: PCP Internal Medicine; Visit Provider Internal Medicine Pulmonary Disease
DX: Z91.09 Other allergy status, other than to drugs and biological substances (principal); J44.9 Chronic obstructive pulmonary disease, unspecified; R05.9 Cough, unspecified
CPT/HCPCS: 36415; 82785; 85025; 86003

== ENCOUNTER → 2021-12-30 14:05 | Outpatient (BNVA) | payer OTHER, SELFPAY | PROVIDERS: PCP Internal Medicine; Visit Provider Internal Medicine Pulmonary Disease | DX: J44.9 Chronic obstructive pulmonary disease, unspecified (principal) ==

== ENCOUNTER 2022-01-27 07:26 | Outpatient (REF) | payer OTHER, SELFPAY ==
--- NOTE | ~2022-01-27 | CT_ITS ---
EXAMINATION: CT CHEST WITHOUT CONTRAST CLINICAL INFORMATION: Pulmonary nodule and tree-in-bud appearance. Follow-up. COMPARISON: CT chest 10/18/2021. TECHNIQUE: Multidetector volumetric CT imaging of the chest was done. Axial MIP volume rendering provided. Sagittal and coronal reformatted images were obtained. This CT examination was performed using dose optimization techniques as appropriate, variously including the following: *Automated exposure control *Adjustment of mA and/or kV according to patient size (this includes techniques or standardized protocols for targeted exams where dose is matched to indication/reason for exam; i.e. extremities or head) *Use of iterative reconstruction technique DLP: 4:15 mGy-cm. FINDINGS: DOBBY LOOM FIXER: Well-inflated lungs. LUNGS: There is centrilobular and paraseptal emphysema with bullous changes in both lung apices. There is bilateral peribronchial thickening in both upper lobes with tree-in-bud appearance in the right upper lobe, similar to previous study. A 5 mm nodule abutting the left anterior mediastinum axial image 252/6 and a 5 mm nodule/node adjacent to left major fissure left lower lobe axial image 309/6 are stable. No additional nodules or mass seen. MEDIASTINUM: The thyroid lobes are symmetric and normal. The central trachea and the bronchi are widely patent. Heart size and the great vessels are normal caliber. No abnormal-sized mediastinal lymph nodes or mass seen. There is no pericardial effusion. PLEURA: There is no pleural effusion. No pleural mass or thickening. AXILLA: There are small shotty lymph nodes in the axilla bilaterally. The largest lymph node left axilla measures 1.30 cm. Similar findings in the right side seen. UPPER ABDOMEN: Visualized liver, spleen, pancreas and bilateral adrenal glands are unremarkable. OSSEOUS STRUCTURES: No lytic or sclerotic process seen. There is moderate spondylosis seen throughout mid and lower dorsal spine. CT/CT chest wo con IMPRESSION: Stable nodules, stable tree-in-bud appearance. Findings are more suggestive of airway disease. Pulmonary nodule is stable as well. Fleischner guidelines were followed.
== END 2022-01-27 07:27 | disposition home or self-care (01) ==
LOC: HO.CT 07:26
PROVIDERS: Visit Provider Internal Medicine Pulmonary Disease
DX: R93.89 Abnormal findings on diagnostic imaging of other specified body structures (principal)
CPT/HCPCS: 71250

== ENCOUNTER 2022-03-27 15:54 | Emergency (ER) | payer OTHER, SELFPAY | END 2022-03-27 16:37 | disposition left against medical advice (07) | PROVIDERS: Emergency Provider Emergency Medicine; PCP Internal Medicine | DX: R22.0 Localized swelling, mass and lump, head (principal) ==

== ENCOUNTER 2022-03-31 15:15 | Emergency (ER) | payer OTHER, SELFPAY ==
--- NOTE | ~2022-03-31 | CT_ITS ---
EXAMINATION: CT SOFT TISSUE NECK WITH CONTRAST CLINICAL INFORMATION: Facial swelling COMPARISON: CT chest without contrast 01/27/2022 TECHNIQUE: Following the intravenous administration of 75 mL of Omnipaque 350 intravenous contrast, helical imaging was performed in the axial plane with generation of coronal and sagittal reformatted images. This CT examination was performed using dose optimization techniques as appropriate, variously including the following: *Automated exposure control *Adjustment of mA and/or kV according to patient size (this includes techniques or standardized protocols for targeted exams where dose is matched to indication/reason for exam; i.e. extremities or head) *Use of iterative reconstruction technique DLP: 805 mGy-cm FINDINGS: Motion degraded examination. No cervical adenopathy is identified. The parotid glands are homogeneous in attenuation. The submandibular glands are normal. No contour abnormality or pathologic enhancement is seen within the oral cavity or pharyngeal mucosal space. There is medialization of the right vocal fold. The parapharyngeal fat is preserved. The carotid sheath vasculature opacify normally. 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 No extra mucosal soft tissue mass or fluid collection is seen. No retropharyngeal fluid collection is seen. The thyroid gland is normal. The superior mediastinum is unremarkable. Bullous changes and scarring involving the lung apices. Similar appearance of bronchial wall thickening compared to CT from 01/27/2022, likely reflecting chronic airways disease. Small right pleural effusion. The mastoid air cells are clear. Mild to moderate inflammatory disease involving the frontal, left ethmoid, and right maxillary sinuses. There is near complete opacification of the left maxillary sinus. The temporomandibular joints are normal. Left mandibular dental hardware is noted. No acute osseous abnormality or suspicious lytic or sclerotic osseous lesion. Mild to moderate multilevel cervical spondylosis. The imaged portions of the brain parenchyma are unremarkable. CT/CT soft tissue neck w con IMPRESSION: Motion degraded examination 1. No acute soft tissue abnormality. 2. Realization of the right vocal fold. Correlate clinically for vocal cord paresis. 3. Small right pleural effusion 4. Paranasal sinus inflammatory disease, most prominently involving the left maxillary sinus which is nearly opacified
--- NOTE | ~2022-03-31 | XR_ITS ---
EXAMINATION: XR CHEST CLINICAL INFORMATION: Exertional shortness of breath COMPARISON: CT scan chest 01/27/2022 and chest radiograph 05/29/2020 TECHNIQUE: Frontal view of the chest was obtained. FINDINGS: Again seen are findings of emphysema with hyperinflation and some chronic interstitial findings mild peribronchial thickening is present. At the time of the prior CT, a trace right pleural effusion was present which I suspect has increased and is predominantly subpulmonic. A tiny left effusion is seen. Heart size normal. No evidence of CHF. No consolidations. XR/XR chest 1V IMPRESSION: COPD. Slight increase in size of right pleural effusion which is now small
--- NOTE | 2022-03-31 15:19 | ECG_ITS ---
Test Reason : sob Blood Pressure : / mmHG Vent. Rate : 099 BPM Atrial Rate : 099 BPM P-R Int : 146 ms QRS Dur : 140 ms QT Int : 368 ms P-R-T Axes : 068 -70 029 degrees QTc Int : 472 ms Normal sinus rhythm Right bundle branch block Left anterior fascicular block Bifascicular block Abnormal ECG When compared with ECG of 18-OCT-2021 16:45, No significant change was found Referred By: Generic ED Physician Electronically Signed By:BALTA GRIGGS
[2022-03-31 15:24] VITALS: BP 129/78; PULSE 99; RESP 18; TEMP 37.2; O2SAT 94; BMI 26.9
[2022-03-31 15:40] LABS: Basophils Percent Auto 0.3 % (0-2); Monocytes Absolute Auto 0.3 X10*3/uL (0.1-1.2); Monocytes Percent Auto 7.5 % (2-11); PLT CLUMP 1; SCAN SMEAR FLAG 1
[2022-03-31 15:42] LABS: Eosinophils Absolute Auto 0.1 X10*3/uL (0.0-0.4); Eosinophils Percent Auto 1.6 % (0-4); Hematocrit 44.4 % (42.0-52.0); Hemoglobin 14.6 g/dl (14.0-18.0); Imm Gran Abs Auto 0.02 X10*3/uL (0.00-0.03); Imm Gran Pct Auto 0.5 % (0.0-0.4); Lymphocytes Absolute Auto 0.9 X10*3/uL (1.2-4.9); Lymphocytes Percent Auto 23.1 % (20-40); Mean Corpuscular HGB Conc 32.9 g/dl (31.0-36.0); Mean Corpuscular Hemoglobin 31.5 pg (27.0-33.0); Mean Corpuscular Volume 95.9 fL (80.0-98.0); Mean Platelet Volume 12.2 fL (9.4-12.4); Neutrophils Absolute Auto 2.6 x10*3/uL (2.0-8.3); Red Blood Count 4.63 X10*6/uL (4.60-5.80)
[2022-03-31 15:56] LABS: COVID-19 Test Negative (Negative)
[2022-03-31 16:06] LABS: White Blood Count 3.9 X10*3/uL (4.8-10.8)
[2022-03-31 16:08] LABS: MANUAL DIFF FLAG NO; Platelet Count 82 X10*3/uL (160-400)
[2022-03-31 16:09] LABS: Alanine Aminotransferase 22 U/L (0-40); Albumin Level 3.9 g/dL (3.5-5.0); Alkaline Phosphatase 57 U/L (39-117); Anion Gap 12 (12-20); Aspartate Amino Transferase 20 U/L (5-37); Bilirubin Total 1.1 mg/dL (0.0-1.0); Blood Urea Nitrogen 13 mg/dL (9-16); Calcium 8.6 mg/dL (8.4-10.2); Carbon Dioxide 26 mmol/L (22-29); Chloride 105 mmol/L (96-108); Creatinine Clr Calc Pharmacy 121.5; Estimated Glomerular Filt Rate > 60; Glucose Random 121 mg/dL (60-115); Potassium 4.2 mmol/L (3.3-5.1); Sodium 139 mmol/L (135-145); Total Protein 6.2 g/dL (6.5-8.0)
[2022-03-31 16:10] LABS: B Type Natriuretic Peptide < 10 pg/mL (<100); Troponin-I High Sensitivity < 3.5 ng/L (<3.5-35.0)
[2022-03-31 20:34] VITALS: BP 118/72; PULSE 92; RESP 16; TEMP 37; O2SAT 94
--- NOTE | 2022-03-31 23:54 | PC.NURSE ---
pt brought back from waiting room and placed in bed. no sign of respiratory distress during ambulation. pt able to speak in full sentences.
[2022-04-01] VITALS: BP 140/84; PULSE 92; RESP 16; TEMP 37.2; O2SAT 95
--- NOTE | 2022-04-01 00:09 | ED.GENADULT ---
HPI - General Adult General Chief complaint: Dyspnea Stated complaint: SOB Time Seen by Provider: 03/31/22 23:56 Source: patient and family Limitations: no limitations History of Present Illness HPI narrative: This is a 57-year-old male who has had swelling in his face for a few weeks. Patient had gone to his primary care physician and been put on prednisone which has not helped at all. The patient has had some bilateral burning feeling in his face but no other pain. He does not have any remaining teeth, denies tooth pain. Denies any sinus pain or pressure. Denies any laterality to the discomfort. He has not been noted to have any facial droop. He denies any headache or visual change. He denies any sore throat or trouble swallowing. He is not on any medications except for the recent prednisone. He has not had any fever. Patient's is concerned about his facial swelling. He has not had any swelling in his feet or legs, or in his hands. Related Data Previous Rx's Medication Instructions Recorded albuterol sulfate 90 mcg/actuation 2 inh inhalation Q4-6H PRN 10/18/21 breath activated powder inhaler shortness of breath or wheezing #1 ea umeclidinium 62.5 mcg-vilanterol 1 inh inhalation DAILY 30 days #1 12/30/21 25 mcg/actuation powdr for ea inhalation (Anoro Ellipta) omeprazole 40 mg capsule,delayed 40 mg PO BID 30 days #60 caps 02/11/22 release cetirizine 10 mg tablet 10 mg PO DAILY #90 tabs 02/28/22 fluticasone propionate 50 1 spray intranasal BID #48 mL 03/03/22 mcg/actuation nasal spray,suspension amoxicillin 875 mg-potassium 1 tab PO Q12H #20 tabs 04/01/22 clavulanate 125 mg tablet fluticasone furoate 27.5 2 spray intranasal DAILY #9.1 mL 04/01/22 mcg/actuation nasal spray,suspension (Flonase Sensimist) pseudoephedrine HCl 30 mg tablet 60 mg PO Q6H PRN nasal congestion 04/01/22 (Sudafed) #20 tabs Allergies Allergy/AdvReac Type Severity Reaction Status Date / Time No Known Allergies Allergy Verified 02/11/22 15:15 Review of Systems Review of Systems: Yes all other systems are reviewed and are negative Constitutional: Constitutional: Reports as per HPI and Denies fever(s) Eyes: Eyes: Reports as per HPI and Reports no additional eye complaints ENT: Reports system reviewed and no additional complaints, except as documented, Reports as per HPI, Denies nasal congestion, Denies nasal discharge and Denies sore throat Cardiovascular: Cardiovascular: Reports as per HPI, Denies chest pain and Denies dyspnea Respiratory: Respiratory: Reports as per HPI, Denies cough and Denies dyspnea Gastrointestinal: Gastrointestinal: Reports as per HPI, Denies abdominal pain, Denies diarrhea and Denies vomiting Genitourinary: Genitourinary: Reports as per HPI, Denies hematuria, Denies dysuria and Denies urinary frequency Musculoskeletal: Musculoskeletal: Reports no additional musculoskeletal complaints and Denies numbness Integumentary/Breasts: Skin/Breast: Reports as per HPI and Denies rash Neurologic: Reports as per HPI, Denies focal weakness and Denies numbness Psychiatric: Psychiatric: Reports no additional psychiatric complaints and Reports as per HPI Endocrine: Endocrine: Reports no additional endocrine complaints and Reports as per HPI Hematologic/Lymphatic: Hematologic/Lymphatic: Reports no additional hematologic/lymphatic complaints, Reports as per HPI and Reports other (No peripheral edema) [facility] Past Medical History Medical History (Updated 04/01/22 @ 01:46 by Tanner Jewell MD) Anemia with low platelet count COPD (chronic obstructive pulmonary disease) ETOH abuse Pulmonary nodules Surgical History History of colonoscopy History of liver biopsy Social History Social History Cigarettes Per Day: 10 Years Smoked: 35 yrs Advance Directives: No Current occupational status: employed 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 No facial droop. No significant facial erythema. No cervical adenopathy or mass. General: no acute distress Orientation/consciousness: patient oriented x3 [facility] Head: Yes normal to inspection General nose exam: Normal external nose present Mouth: moist mucous membranes Throat: Yes posterior oropharynx normal, Yes tonsils normal and Yes uvula midline Eyes Eyelids: Yes eyelids normal Conjunctivae: conjunctivae normal Pupils: Equal, round and reactive pupils present Neck Neck: Yes supple Resp Effort & Inspection: normal respiratory effort Auscultation: clear to auscultation bilaterally Cardio Rate: regular rate Rhythm: regular rhythm Heart sounds: S1 normal heart sound present, S2 normal heart sound present, no gallops, no murmurs and no rubs GI Inspection: No distended Palpation (GI): Soft to palpation and nontender Auscultation: normal bowel sounds Skin General skin exam: other (Warm and dry) Neuro General: patient oriented x3 and CN's II-XI intact bilaterally Cranial nerves: Yes Equal, round and reactive pupils present Extrem General: Yes no pedal edema Psych Affect: normal affect Attitude: cooperative Medical Decision Making [facility] Narrative Medical decision making narrative: Patient with a prior history of thrombocytopenia, has reportedly had facial swelling, unresponsive to steroids. Patient is not on any blood pressure medicine. Face appears symmetric with no facial droop, possible mild swelling but nose given asymmetry, no masses palpable, no adenopathy. Soft tissue CT of the face and neck was done which showed evidence of maxillary sinusitis on 1 side, which may or may not be related to the patient's facial swelling. Will treat with Augmentin to see if this causes any improvement. Will also treat with Sudafed and Flonase. Patient can follow up with his primary care physician. Lab Data Lab results reviewed: Yes I reviewed the patient's lab results. Result diagrams: 03/31/22 15:32 03/31/22 15:31 Labs: Lab Results 03/31/22 03/31/22 03/31/22 Range/Units 15:31 15:31 15:32 WBC 3.9 L (4.8-10.8) X10*3/uL RBC 4.63 (4.60-5.80) X10*6/uL Hgb 14.6 (14.0-18.0) g/dl Hct 44.4 (42.0-52.0) % MCV 95.9 (80.0-98.0) fL MCH 31.5 (27.0-33.0) pg MCHC 32.9 (31.0-36.0) g/dl RDW 14.0 (11.0-16.0) % Plt Count 82 L D (160-400) X10*3/uL MPV 12.2 (9.4-12.4) fL Immature Gran % (Auto) 0.5 H (0.0-0.4) % Neut % (Auto) 67.0 (45-73) % Lymph % (Auto) 23.1 (20-40) % Kerr % (Auto) 7.5 (2-11) % Eos % (Auto) 1.6 (0-4) % Baso % (Auto) 0.3 (0-2) % Lymph # (Auto) 0.9 L (1.2-4.9) X10*3/uL Kerr # (Auto) 0.3 (0.1-1.2) X10*3/uL Eos # (Auto) 0.1 (0.0-0.4) X10*3/uL Baso # (Auto) 0.0 (0.0-0.2) X10*3/uL Abs Immat Gran (auto) 0.02 (0.00-0.03) X10*3/uL Absolute Neuts (auto) 2.6 (2.0-8.3) x10*3/uL Absolute Nucleated RBC 0.000 (0.0-0.012) X10*3/uL Nucleated RBC % (auto) 0.0 (0.0-0.2) /100WBC Sodium 139 (135-145) mmol/L Potassium 4.2 (3.3-5.1) mmol/L Chloride 105 (96-108) mmol/L Carbon Dioxide 26 (22-29) mmol/L Anion Gap 12 (12-20) BUN 13 (9-16) mg/dL Creatinine 0.77 (0.5-1.4) mg/dL Estim Creat Clear Calc 121.5 Estimated GFR > 60 Random Glucose 121 H (60-115) mg/dL Calcium 8.6 D (8.4-10.2) mg/dL Total Bilirubin 1.1 H (0.0-1.0) mg/dL AST 20 (5-37) U/L ALT 22 (0-40) U/L Alkaline Phosphatase 57 (39-117) U/L Troponin I High Sens < 3.5 (<3.5-35.0) ng/L B-Natriuretic Peptide < 10 (<100) pg/mL Total Protein 6.2 L (6.5-8.0) g/dL Albumin 3.9 (3.5-5.0) g/dL COVID-19 (JEFF) (Negative) COVID-19 Clin Com 03/31/22 Range/Units 15:32 WBC (4.8-10.8) X10*3/uL RBC (4.60-5.80) X10*6/uL Hgb (14.0-18.0) g/dl Hct (42.0-52.0) % MCV (80.0-98.0) fL MCH (27.0-33.0) pg MCHC (31.0-36.0) g/dl RDW (11.0-16.0) % Plt Count (160-400) X10*3/uL MPV (9.4-12.4) fL Immature Gran % (Auto) (0.0-0.4) % Neut % (Auto) (45-73) % Lymph % (Auto) (20-40) % Kerr % (Auto) (2-11) % Eos % (Auto) (0-4) % Baso % (Auto) (0-2) % Lymph # (Auto) (1.2-4.9) X10*3/uL Kerr # (Auto) (0.1-1.2) X10*3/uL Eos # (Auto) (0.0-0.4) X10*3/uL Baso # (Auto) (0.0-0.2) X10*3/uL Abs Immat Gran (auto) (0.00-0.03) X10*3/uL Absolute Neuts (auto) (2.0-8.3) x10*3/uL Absolute Nucleated RBC (0.0-0.012) X10*3/uL Nucleated RBC % (auto) (0.0-0.2) /100WBC Sodium (135-145) mmol/L Potassium (3.3-5.1) mmol/L Chloride (96-108) mmol/L Carbon Dioxide (22-29) mmol/L Anion Gap (12-20) BUN (9-16) mg/dL Creatinine (0.5-1.4) mg/dL Estim Creat Clear Calc Estimated GFR Random Glucose (60-115) mg/dL Calcium (8.4-10.2) mg/dL Total Bilirubin (0.0-1.0) mg/dL AST (5-37) U/L ALT (0-40) U/L Alkaline Phosphatase (39-117) U/L Troponin I High Sens (<3.5-35.0) ng/L B-Natriuretic Peptide (<100) pg/mL Total Protein (6.5-8.0) g/dL Albumin (3.5-5.0) g/dL COVID-19 (JEFF) Negative (Negative) COVID-19 Clin Com See Note Imaging Data Soft tissue head and neck: Radiologist's impression: 1.? No acute soft tissue abnormality. ? 2.? Realization of the right vocal fold. Correlate clinically for vocal cord paresis. ? 3.? Small right pleural effusion ? 4.? Paranasal sinus inflammatory disease, most prominently involving the left maxillary sinus which is nearly opacified ECG Data Attestation: I personally reviewed and interpreted this ECG as follows: Interpretation: Sinus rhythm with a rate of 99. Bifascicular block. Discharge Plan Discharge Clinical Impression: Sinusitis Patient Disposition: Home, Self-Care Instructions: Sinusitis (ED) Additional Instructions: Use the antibiotic, Flonase, and Sudafed as prescribed. Follow-up with primary care physician in 2 weeks for re-evaluation. Return for any new or worsened symptoms. Prescriptions: New amoxicillin-pot clavulanate 875-125 mg tablet 1 tab PO Q12H Qty: 20 0RF pseudoephedrine HCl [Sudafed] 30 mg tablet 60 mg PO Q6H PRN (Reason: nasal congestion) Qty: 20 0RF Rx Instructions: DNExceed 4 doses/24h Flonase Sensimist 27.5 mcg/actuation spray,suspension 2 spray intranasal DAILY Qty: 9.1 0RF Rx Instructions: into each nostril No Action cetirizine 10 mg tablet 10 mg PO DAILY Qty: 90 1RF fluticasone propionate 50 mcg/actuation spray,suspension 1 spray intranasal BID Qty: 48 1RF albuterol sulfate 90 mcg/actuation aerosol powdr breath activated 2 inh inhalation Q4-6H PRN (Reason: shortness of breath or wheezing) Qty: 1 0RF omeprazole 40 mg capsule,delayed release(DR/EC) 40 mg PO BID 30 Days Qty: 60 3RF Anoro Ellipta 62.5-25 mcg/actuation blister with device 1 inh inhalation DAILY 30 Days Qty: 1 6RF Interventions: ED Discharge Assessment Last Done: 04/01/22 02:02 Discharge Date/Time: 04/01/22 02:08
[2022-04-01] MEDS: iohexoL 350 MG/ML 100 ML INFUS..BTL IV (00:33)
== END 2022-04-01 02:08 | disposition home or self-care (01) ==
PROVIDERS: Internal Medicine; Emergency Provider Emergency Medicine; PCP Internal Medicine
DX: J32.9 Chronic sinusitis, unspecified (principal); R06.02 Shortness of breath; F17.210 Nicotine dependence, cigarettes, uncomplicated; Z20.822 Contact with and (suspected) exposure to COVID-19; Z79.899 Other long term (current) drug therapy; Z71.6 Tobacco abuse counseling
CPT/HCPCS: 36415; 70491; 71045; 80053; 83880; 84484; 85025; 87635; 93005; 99284; Q9967

== ENCOUNTER 2022-04-30 11:43 | Outpatient (REF) | payer OTHER, SELFPAY ==
--- NOTE | ~2022-04-30 | XR_ITS ---
EXAMINATION: XR CHEST CLINICAL INFORMATION: COPD COMPARISON: Previous chest x-ray, most recent March [address] most recent January 2022 TECHNIQUE: 2 views of the chest were obtained. FINDINGS: The cardiac and mediastinal contours are stable. The lungs are well-inflated. There are increased lung markings similar to previous exams. There is a small right pleural effusion. There is no left pleural effusion. There is no pneumothorax. There are degenerative changes of the spine XR/XR chest 2V IMPRESSION: Small right pleural effusion similar to March 2022 exam. Well-inflated lungs. Chronic parenchymal changes similar to previous exam.
== END 2022-04-30 11:44 | disposition home or self-care (01) ==
LOC: HO.XRAY 11:43
PROVIDERS: PCP Internal Medicine; Visit Provider Internal Medicine Pulmonary Disease
DX: J44.9 Chronic obstructive pulmonary disease, unspecified (principal)
CPT/HCPCS: 71046

== ENCOUNTER 2022-05-20 15:45 | Outpatient (REF) | payer OTHER, SELFPAY ==
--- NOTE | ~2022-05-20 | XR_ITS ---
EXAMINATION: XR CHEST CLINICAL INFORMATION: Dyspnea. COMPARISON: 04/30/2022 chest radiographs. TECHNIQUE: 2 views of the chest were obtained. FINDINGS: Mild increased pulmonary vascular and interstitial markings are seen with small bilateral pleural effusions. The heart and mediastinal structures are unremarkable. XR/XR chest 2V IMPRESSION: Mild interval increase in congestion with persistent small bilateral pleural effusions.
== END 2022-05-20 15:46 | disposition home or self-care (01) ==
LOC: HO.XRAY 15:45
PROVIDERS: PCP Internal Medicine; Visit Provider Internal Medicine Pulmonary Disease
DX: R06.00 Dyspnea, unspecified (principal)
CPT/HCPCS: 71046

== ENCOUNTER 2022-05-21 11:39 | Outpatient (REF) | payer OTHER, SELFPAY ==
[2022-05-21 12:31] LABS: Anion Gap 13 (12-20); Blood Urea Nitrogen 14 mg/dL (9-16); Carbon Dioxide 30 mmol/L (22-29); Chloride 107 mmol/L (96-108); Estimated Glomerular Filt Rate > 60; Sodium 145 mmol/L (135-145)
[2022-05-21 12:33] LABS: B Type Natriuretic Peptide < 10 pg/mL (<100)
[2022-05-21 12:53] LABS: Erythrocyte Sedimentation Rate 23 MM/HR (0-15)
[2022-05-22 14:52] LABS: CRP High Sensitivity 3.2 mg/L
== END 2022-05-21 11:40 | disposition home or self-care (01) ==
LOC: HO.LAB 11:39
PROVIDERS: PCP Internal Medicine; Visit Provider Internal Medicine Pulmonary Disease
DX: R06.09 Other forms of dyspnea (principal)
CPT/HCPCS: 36415; 80051; 82565; 83880; 84520; 85652; 86141

== ENCOUNTER 2022-06-26 16:45 | Outpatient (REF) | payer OTHER, SELFPAY ==
--- NOTE | ~2022-06-26 | XR_ITS ---
EXAMINATION: BILATERAL HAND CLINICAL INFORMATION: Pain COMPARISON: None TECHNIQUE: 3 views of each hand FINDINGS: Right hand 3 views revealed narrowing of radiocarpal joint, mild changes of osteoarthritis in the first carpometacarpal joint, no fractures. There is mild narrowing of distal interphalangeal joints. There are no erosive changes. Soft tissues are unremarkable. Left wrist 3 views revealed narrowing of radiocarpal joint and mild changes of osteoarthritis in the interphalangeal joints and first carpometacarpal joint. There is no fracture seen. Soft tissues unremarkable. XR/XR hand LT min 3V IMPRESSION: Changes of osteoarthritis in both hands.
--- NOTE | ~2022-06-26 | XR_ITS ---
EXAMINATION: BILATERAL HAND CLINICAL INFORMATION: Pain COMPARISON: None TECHNIQUE: 3 views of each hand FINDINGS: Right hand 3 views revealed narrowing of radiocarpal joint, mild changes of osteoarthritis in the first carpometacarpal joint, no fractures. There is mild narrowing of distal interphalangeal joints. There are no erosive changes. Soft tissues are unremarkable. Left wrist 3 views revealed narrowing of radiocarpal joint and mild changes of osteoarthritis in the interphalangeal joints and first carpometacarpal joint. There is no fracture seen. Soft tissues unremarkable. XR/XR hand RT min 3V IMPRESSION: Changes of osteoarthritis in both hands.
== END 2022-06-26 16:46 | disposition home or self-care (01) ==
LOC: HO.XRAY 16:45
PROVIDERS: PCP Internal Medicine; Visit Provider Internal Medicine
DX: M79.641 Pain in right hand (principal); M79.642 Pain in left hand
CPT/HCPCS: 73130

== ENCOUNTER → 2022-08-06 14:49 | Outpatient (BNVA) | payer OTHER, SELFPAY | PROVIDERS: PCP Internal Medicine; Visit Provider Physician Assistant | DX: M19.041 Primary osteoarthritis, right hand (principal) ==

== ENCOUNTER → 2022-09-09 08:32 | Outpatient (BNVA) | payer OTHER, SELFPAY | PROVIDERS: PCP Internal Medicine; Visit Provider Orthopaedic Surgery | DX: Z13.89 Encounter for screening for other disorder (principal) ==

== ENCOUNTER → 2022-09-15 14:19 | Outpatient (BNVA) | payer OTHER, SELFPAY | PROVIDERS: PCP Internal Medicine; Visit Provider Orthopaedic Surgery | DX: Z13.89 Encounter for screening for other disorder (principal) ==

== ENCOUNTER 2022-10-29 09:55 | Outpatient (REF) | payer OTHER, SELFPAY ==
--- NOTE | ~2022-10-29 | XR_ITS ---
EXAMINATION: XR CHEST CLINICAL INFORMATION: Dyspnea. COMPARISON: None available. TECHNIQUE: 2 views of the chest were obtained. FINDINGS: The lungs are well-expanded with bilateral haziness in both lungs from pleural effusion and compressive atelectasis. There is increased vascular markings in both lungs likely interstitial edema or pneumonitis. Heart size is normal. No gross bony abnormality seen. XR/XR chest 2V IMPRESSION: 1. Bilateral pleural effusion with compressive atelectasis. 2. Bilateral increased interstitial markings likely interstitial edema or pneumonitis.
== END 2022-10-29 09:56 | disposition home or self-care (01) ==
LOC: HO.XRAY 09:55
PROVIDERS: PCP Internal Medicine; Visit Provider Internal Medicine Pulmonary Disease
DX: J90 Pleural effusion, not elsewhere classified (principal); R06.09 Other forms of dyspnea; J44.9 Chronic obstructive pulmonary disease, unspecified
CPT/HCPCS: 71046

== ENCOUNTER 2022-11-04 11:47 | Day surgery (SDC) | payer OTHER, SELFPAY ==
--- NOTE | ~2022-11-04 | XR_ITS ---
EXAMINATION: XR CHEST CLINICAL INFORMATION: Status post right thoracentesis. COMPARISON: Chest x-ray 10/29/2022 TECHNIQUE: 2 views inspiration/expiration of the chest were obtained. FINDINGS: Post thoracentesis there is no right-sided pneumothorax. There is no effusion seen. The lungs are expanded with increased interstitial markings. Heart size and and pulmonary vascularity is normal. There is moderate spondylosis dorsal spine. No aggressive lytic or sclerotic process seen. XR/XR chest 2V IMPRESSION: No pneumothorax seen status post right thoracentesis. Mild increased interstitial markings but stable
--- NOTE | ~2022-11-04 | US_ITS ---
EXAMINATION: US-GUIDED THORACENTESIS, RIGHT CLINICAL INDICATION: Right pleural effusion. SOB. COMPARISON: Chest x-ray 11/04/2022. TECHNIQUE: Following explaining ultrasound-guided right thoracentesis procedure, benefits and risk, a written consent was obtained. Patient was placed upright sitting on ultrasound stretcher and preliminary ultrasound imaging was obtained. An optimal site was selected along the inferior scapular line and marked on the skin. The marked site was cleaned and draped in the usual sterile manner. 1% lidocaine was injected at the puncture site. Through a small skin incision, a 5-Lithuanian [id number] catheter was advanced into the pleural space. After observing fluid return, stylet was withdrawn and catheter connected to vacuum bottle via connecting cannula. After obtaining all fluid and observing no more fluid return, the catheter was removed with jelly coated gauze placed at the insertion site and patient in deep inspiration making sure no air leaked in. Complete hemostasis achieved at puncture site. Sterile dressing applied postprocedure. Patient tolerated the procedure extremely well. Chest x-ray was to be obtained. FINDINGS: On preliminary ultrasound imaging, there is moderate fluid within the pleural space. Approximately 900 mL of clear yellowish fluid was drained from the right chest. US/US thoracentesis IMPRESSION: Successful ultrasound-guided therapeutic and diagnostic right thoracentesis performed.
[2022-11-04 12:22] VITALS: BMI 28.0
[2022-11-04 12:39] LABS: MANUAL DIFF FLAG NO
[2022-11-04 12:43] LABS: Basophils Percent Auto 0.2 % (0-2); Eosinophils Percent Auto 0.2 % (0-4); Hematocrit 43.4 % (42.0-52.0); Hemoglobin 14.2 g/dl (14.0-18.0); Imm Gran Abs Auto 0.02 X10*3/uL (0.00-0.03); Imm Gran Pct Auto 0.5 % (0.0-0.4); Lymphocytes Percent Auto 24.1 % (20-40); Mean Corpuscular HGB Conc 32.7 g/dl (31.0-36.0); Mean Corpuscular Hemoglobin 31.1 pg (27.0-33.0); Mean Corpuscular Volume 95.2 fL (80.0-98.0); Mean Platelet Volume 10.9 fL (9.4-12.4); Monocytes Absolute Auto 0.3 X10*3/uL (0.1-1.2); Monocytes Percent Auto 7.3 % (2-11); Neutrophils Absolute Auto 2.8 x10*3/uL (2.0-8.3); Neutrophils Percent Auto 67.7 % (45-73); Platelet Count 151 X10*3/uL (160-400); Red Blood Count 4.56 X10*6/uL (4.60-5.80); Red Cell Distribution Width 13.4 % (11.0-16.0); White Blood Count 4.1 X10*3/uL (4.8-10.8)
[2022-11-04 12:46] LABS: INTERNATIONAL NORM RATIO 1.1 (0.9-1.1); Prothrombin Time 12.2 SEC (10.0-13.1)
[2022-11-04 12:49] LABS: Partial Thromboplastin Time 26.2 SEC (26.0-36.4)
[2022-11-04] MEDS: Lidocaine HCl 1 % MPF 5 ML VIAL SUBCUT (14:13)
[2022-11-04 14:14] VITALS: BP 105/70; PULSE 86; RESP 16; TEMP 37.1; O2SAT 90
[2022-11-04 14:30] VITALS: BP 120/71; PULSE 82; RESP 16; O2SAT 93
[2022-11-04 14:36] VITALS: BP 105/67; PULSE 82; RESP 16; O2SAT 91
[2022-11-04 14:51] VITALS: BP 109/77; PULSE 83; RESP 12; TEMP 37.2; O2SAT 93
[2022-11-04 15:04] VITALS: BP 109/77; PULSE 85; RESP 16; O2SAT 93
== END 2022-11-04 15:29 | disposition home or self-care (01) ==
PROVIDERS: Radiology Diagnostic Radiology; PCP Internal Medicine; Visit Provider Internal Medicine Pulmonary Disease
DX: J90 Pleural effusion, not elsewhere classified (principal); J44.9 Chronic obstructive pulmonary disease, unspecified; R91.8 Other nonspecific abnormal finding of lung field; R06.09 Other forms of dyspnea; R05.9 Cough, unspecified; R06.2 Wheezing; R09.3 Abnormal sputum; D64.9 Anemia, unspecified; D69.6 Thrombocytopenia, unspecified; R60.0 Localized edema; F10.10 Alcohol abuse, uncomplicated; F17.210 Nicotine dependence, cigarettes, uncomplicated; Z79.899 Other long term (current) drug therapy
CPT/HCPCS: 32555; 36415; 71046; 85025; 85610; 85730

== ENCOUNTER 2022-11-11 10:10 | Outpatient (REF) | payer OTHER, SELFPAY ==
[2022-11-11 12:37] LABS: B Type Natriuretic Peptide 12 pg/mL (<100)
[2022-11-11 13:37] LABS: Anion Gap 10 (12-20); Blood Urea Nitrogen 18 mg/dL (9-16); Calcium 8.7 mg/dL (8.4-10.2); Carbon Dioxide 30 mmol/L (22-29); Chloride 107 mmol/L (96-108); Estimated Glomerular Filt Rate > 60; Glucose Random 85 mg/dL (60-115); Potassium 4.9 mmol/L (3.3-5.1); Sodium 142 mmol/L (135-145)
== END 2022-11-11 10:11 | disposition home or self-care (01) ==
LOC: HO.LAB 10:10
PROVIDERS: PCP Internal Medicine; Referring Provider Internal Medicine; Visit Provider Internal Medicine Cardiovascular Disease
DX: R06.09 Other forms of dyspnea (principal)
CPT/HCPCS: 36415; 80048; 83880; 93005

== ENCOUNTER → 2022-11-13 14:31 | Outpatient (REF) | payer OTHER, SELFPAY ==
--- NOTE | 2022-11-13 14:35 | CA_ITS ---
Transthoracic Echocardiogram Patient (Last, First, Middle): Talon Stanton, Gender: Male Date of : 1965 Age: 57 Procedure Date: 11/13/2022 Procedure Type: Transthoracic Echocardiogram Location: OP Height: 187.96 cm Weight: 98.88 kg BSA: 2.25 m2 Heart Rate: 98 bpm BP: 110 / 80 mmHg Double Needle Operator: GENARO Referring MD: Rubens Soto MD Symptoms: R06.09 - Other forms of dyspnea Study Quality: Adequate ECG Rhythm: Sinus Conclusions: - The left ventricular systolic function is low normal. The calculated ejection fraction is 52% by biplane method. - Mildly increased right ventricular cavity size. - No obvious valvular pathology seen on this study. - There is a small circumferential pericardial effusion. Findings Left Ventricle Normal left ventricular cavity size. There is mildly increased left ventricular wall thickness. The left ventricular systolic function is low normal. The calculated ejection fraction is 52% by biplane method. There is no evidence of regional wall motion abnormalities. Diastolic function is normal for age. Right Ventricle Mildly increased right ventricular cavity size. There is normal right ventricular systolic function. Atria Both atria are normal in size. Aortic Valve There is a normal trileaflet aortic valve. There is no aortic valve stenosis. There is no aortic valve regurgitation. Mitral Valve The mitral valve appears normal. There is no mitral valve regurgitation. There is no mitral valve stenosis. Pulmonic Valve The pulmonic valve is likely normal. Tricuspid Valve Normal tricuspid valve structure. There is trace tricuspid valve regurgitation. There is no evidence of pulmonary hypertension. Great Vessels The asc aorta is normal in size. Venous The inferior vena cava is normal in size and collapses greater than 50% with inspiration. Pericardium/Pleural There is a small circumferential pericardial effusion. There are no definitive echocardiographic findings of tamponade physiology. Prior Study Comparison No prior study available for comparison. Recommendations, Care & Conclusions No obvious valvular pathology seen on this study. Measurements 2D Linear Measurements IVSd: 1.29 0.6-0.9/0.6-1.0 cm LVIDd: 5.07 3.9-5.3/4.2-5.9 cm LVIDd Index: 2.25 2.4-3.2/2.2-3.1 cm/m2 LVIDs: 3.48 2.0-3.6 cm LVPWd: 1.03 0.7-1.1 cm LA Diam: 2.90 2.7-3.8/3.0-4.0 cm LAIDs Index: 1.29 1.5-2.3 cm/m2 LV Mass: 284.19 67-162/88-224 g LV Mass Index: 126.31 43-95/49-115 g/m2 LVOT Diam: 2.10 3.0+(-)1.3 cm 2D Systolic Function EF 4C: 50.70 >55% EF 2C: 56.40 >55% EF BiP: 51.90 >55% Mitral Valve MV Pk E: 0.68 MV PK A: 0.78 MV Decel Time: 171.00 E/A: 0.90 E'Lateral: 7.07 E'Medial: 6.64 E/E' Med: 10.20 E/E' Lat: 9.60 PHT: 50.00 MVA PHT: 4.40 Decel [place]: 3.97 Aortic Valve AoV Pk Tor: 1.56 AoV Mn Tor: 1.10 AoV VTI: 0.26 AoV Pk Grad: 10.00 Aov Mn Grad: 6.00 PIERCE Cont.VTI: 2.65 LVOT LVOT Pk Tor: 1.20 LVOT Mn Tor: 0.88 LVOT VTI: 0.20 LVOT Pk Grad: 6.00 LVOT Mn Grad: 4.00 LVOT Diam: 2.10 LVOT Area: 3.46 Diastolic Function MV Pk E: 0.68 MV Pk A: 0.78 E/A: 0.90 E'Medial: 6.64 E/E' Med: 10.20 E' Laterial: 7.07 E/E' Lat: 9.60 Right Ventricle TAPSE (mm): 25.90 TVS' Tor: 15.10 Tricuspid Valve TR Pk Tor: 1.87 TR Pk Grad: 14.00 RA Press: 3.00 RVSP: 17.00 Great Vessels Aorta Sinus of Valsalva: 4.40 2.0-3.5 cm Ao Asc: 4.30 2.1-3.4 cm Pulmonary Valve PV Pk Tor: 1.09 Peak PV Grad: 5.00 Updated in Other Vendor System with Status of Final Chase Stewart MD electronically signed on 11/14/2022 12:17:17 PM with status of Final
== END ==
LOC: HO.CARD 14:31
PROVIDERS: PCP Internal Medicine; Visit Provider Internal Medicine Cardiovascular Disease
DX: R06.09 Other forms of dyspnea (principal)
CPT/HCPCS: 93306

== ENCOUNTER 2022-11-25 13:27 | Outpatient (REF) | payer OTHER, SELFPAY ==
--- NOTE | ~2022-11-25 | XR_ITS ---
EXAMINATION: XR CHEST CLINICAL INFORMATION: Pleural effusion COMPARISON: Previous chest x-ray most recent 11/04/2022 TECHNIQUE: 2 views of the chest were obtained. FINDINGS: The cardiac and mediastinal contours are stable. There are increased central bronchovascular markings. There is streaky opacity in the left upper lobe questionable for bronchial wall thickening or small infiltrate. There are slightly increased interstitial markings. There are small bilateral pleural effusions. There are degenerative changes of the spine. XR/XR chest 2V IMPRESSION: Increased central bronchovascular markings and asymmetric increased markings in the left upper lobe questionable for bronchial wall thickening or small infiltrate. Small bilateral pleural effusions. Differential would include airways disease and mild CHF.
== END 2022-11-25 13:28 | disposition home or self-care (01) ==
LOC: HO.XRAY 13:27
PROVIDERS: PCP Internal Medicine; Visit Provider Surgery
DX: J90 Pleural effusion, not elsewhere classified (principal)
CPT/HCPCS: 71046

== ENCOUNTER 2022-11-26 11:21 | Day surgery (SDC) | payer OTHER, SELFPAY ==
--- NOTE | ~2022-11-26 | US_ITS ---
EXAMINATION: ULTRASOUND-GUIDED THORACENTESIS CLINICAL INFORMATION: Pleural effusion COMPARISON: Previous chest x-ray most recent from yesterday and chest CT most recent January 2022 TECHNIQUE: Procedure and risks and benefits including bleeding, infection and pneumothorax were discussed with the patient and informed consent was obtained. Right posterior lateral chest was prepped and draped in the usual sterile fashion. The skin and soft tissues were anesthetized with 1% lidocaine plain. Using ultrasound guidance and a 4 Persian one-step catheter, access to the right pleural effusion was obtained. Scant clear yellow fluid was removed, approximately 10 mL. Diagnostic specimen was sent. FINDINGS: There is a small to moderate right pleural effusion. There appears to be associated pleural thickening.. US/US thoracentesis IMPRESSION: Small to moderate right pleural effusion. Only 10 mL fluid could be aspirated.
--- NOTE | ~2022-11-26 | XR_ITS ---
EXAMINATION: XR CHEST CLINICAL INFORMATION: Post right thoracentesis COMPARISON: November 25, 2022 TECHNIQUE: AP portable view of the chest was obtained. FINDINGS: The right-sided pleural effusion is smaller than on prior study. There are minimal effusions present bilaterally. No pneumothorax is evident. Heart normal size. No evidence of pulmonary edema. There is some right base disease in the right retrocardiac region there are increased interstitial markings. There appears to be some atelectatic change at both lung bases. This appears more prominent within the lingula and right middle lobe. There is a stable region of discoid density within the left upper lobe. XR/XR chest 1V IMPRESSION: No pneumothorax status post right thoracentesis.
[2022-11-26 11:50] VITALS: BMI 28.0
[2022-11-26 12:08] LABS: MANUAL DIFF FLAG NO
[2022-11-26 12:11] LABS: Basophils Percent Auto 0.1 % (0-2); Eosinophils Percent Auto 0.1 % (0-4); Hemoglobin 13.5 g/dl (14.0-18.0); Imm Gran Abs Auto 0.09 X10*3/uL (0.00-0.03); Imm Gran Pct Auto 0.9 % (0.0-0.4); Lymphocytes Absolute Auto 0.5 X10*3/uL (1.2-4.9); Lymphocytes Percent Auto 5.7 % (20-40); Mean Corpuscular HGB Conc 32.1 g/dl (31.0-36.0); Mean Corpuscular Hemoglobin 30.3 pg (27.0-33.0); Mean Corpuscular Volume 94.2 fL (80.0-98.0); Mean Platelet Volume 10.9 fL (9.4-12.4); Monocytes Absolute Auto 0.9 X10*3/uL (0.1-1.2); Monocytes Percent Auto 9.3 % (2-11); Neutrophils Percent Auto 83.9 % (45-73); Platelet Count 157 X10*3/uL (160-400); Red Blood Count 4.46 X10*6/uL (4.60-5.80); Red Cell Distribution Width 13.4 % (11.0-16.0); White Blood Count 9.5 X10*3/uL (4.8-10.8)
[2022-11-26 13:20] LABS: INTERNATIONAL NORM RATIO 1.1 (0.9-1.1); Prothrombin Time 12.6 SEC (10.0-13.1)
[2022-11-26 13:26] LABS: Partial Thromboplastin Time 23.9 SEC (26.0-36.4)
--- NOTE | 2022-11-26 13:47 | HO.RADPN ---
RADIOLOGY Narrative Narrative: US shows no right pleural effusion and small to moderate right pleural effusion, slightly complex with pleural thickening. Right thoracentesis using 4 fr catheter. scant 10mL clear yellow fluid removed. Specimen sent.
[2022-11-26] MEDS: Lidocaine HCl 1 % MPF 5 ML VIAL SUBCUT (13:51)
[2022-11-26 14:00] VITALS: BP 113/71; PULSE 71; RESP 20; TEMP 36.7; O2SAT 94
[2022-11-26 14:15] VITALS: BP 115/73; PULSE 74; RESP 18; O2SAT 94
[2022-11-26 14:16] LABS: MN% 82.6 %; PMN% 17.4 %
[2022-11-26 14:17] LABS: RBC Pleural Fluid < 0.002 X10*3/uL
[2022-11-26 14:30] VITALS: BP 115/79; PULSE 78; RESP 18; O2SAT 94
[2022-11-26 14:45] VITALS: BP 116/74; PULSE 66; RESP 19; O2SAT 94
[2022-11-26 14:59] LABS: BF Shift QC OK YES; Lymphocytes Pleural Fluid 63 %; Man Diluent Bkgrd OK YES; Monocytes Pleural Fluid 2 %; Neutrophils Pleural Fluid 1 %; Other Cells Plerual Fl 34 %
[2022-11-26 15:00] VITALS: BP 107/67; PULSE 66; RESP 19; TEMP 36.7; O2SAT 94
[2022-11-27 07:23] LABS: Amylase Pleural Fluid 23; LDH Pleural Fluid 151
[2022-11-27 07:24] LABS: pH Pleural Fluid > 8.00
[2022-11-27 07:25] LABS: Total Protein Pleural Fluid 3.5
== END 2022-11-26 15:00 | disposition home or self-care (01) ==
PROVIDERS: Internal Medicine; Radiology Diagnostic Radiology; PCP Internal Medicine; Visit Provider Radiology Diagnostic Radiology
DX: J90 Pleural effusion, not elsewhere classified (principal); J44.9 Chronic obstructive pulmonary disease, unspecified; I31.39 Other pericardial effusion (noninflammatory); R05.9 Cough, unspecified; R91.8 Other nonspecific abnormal finding of lung field; R06.01 Orthopnea; R06.09 Other forms of dyspnea; R09.3 Abnormal sputum; D64.9 Anemia, unspecified; D69.6 Thrombocytopenia, unspecified; F17.210 Nicotine dependence, cigarettes, uncomplicated; F10.10 Alcohol abuse, uncomplicated
CPT/HCPCS: 32555; 32557; 36415; 71045; 82150; 83615; 83986; 84157; 85025; 85610; 85730; 87070; 87073; 87205; 89051

== ENCOUNTER 2022-12-04 10:13 | Outpatient (REF) | payer OTHER, SELFPAY ==
[2022-12-04 11:22] LABS: Hematocrit 42.8 % (42.0-52.0); Hemoglobin 13.3 g/dl (14.0-18.0); IG%MD 0.5 %; Lymph%MD 23.5 %; Mean Corpuscular HGB Conc 31.1 g/dl (31.0-36.0); Mean Corpuscular Hemoglobin 30.1 pg (27.0-33.0); Mean Corpuscular Volume 96.8 fL (80.0-98.0); Mean Platelet Volume 11.9 fL (9.4-12.4); Mono%MD 7.1 %; Neut%MD 68.9 %; Red Blood Count 4.42 X10*6/uL (4.60-5.80); White Blood Count 3.8 X10*3/uL (4.8-10.8)
[2022-12-04 12:12] LABS: Platelet Count 81 X10*3/uL (160-400)
[2022-12-04 12:40] LABS: Atypical Lymph Absolute Manual 0.1 x10*3/uL; Atypical Lymphs Percent Manual 2 % (0-6); Band Neutrophils Percent 2 % (3-5); Lymphocytes Absolute Manual 0.8 X10*3/uL (1.2-4.9); Lymphocytes Percent Manual 21 % (20-40); Monocytes Absolute Manual 0.1 X10*3/uL (0.1-1.2); Monocytes Percent Manual 3 % (2-11); Neutrophils Absolute Manual 2.8 X10*3/uL (2.0-8.3); Neutrophils Percent Manual 72 % (45-73); Platelet Estimate DECREASED (NORMAL); Platelet Morphology Comment NORMAL; RBC Morphology NORMAL
== END 2022-12-04 10:14 | disposition home or self-care (01) ==
LOC: HO.LAB 10:13
PROVIDERS: PCP Internal Medicine; Visit Provider Internal Medicine Pulmonary Disease
DX: R05.9 Cough, unspecified (principal); J90 Pleural effusion, not elsewhere classified; R06.09 Other forms of dyspnea
CPT/HCPCS: 36415; 85007; 85027

== ENCOUNTER 2022-12-05 13:12 | Outpatient (REF) | payer OTHER, SELFPAY | END 2022-12-05 13:13 | disposition home or self-care (01) | LOC: HO.LNP 13:12 | PROVIDERS: Visit Provider Internal Medicine Pulmonary Disease | DX: R05.9 Cough, unspecified (principal) | CPT/HCPCS: 87070; 87077; 87186; 87205 ==

== ENCOUNTER → 2022-12-08 08:49 | Outpatient (REF) | payer OTHER, SELFPAY ==
--- NOTE | ~2022-12-08 | NM_ITS ---
Exercise Myocardial perfusion study Indication: Chest pain to evaluate for myocardial ischemia Technique: The patient was brought in for an exercise perfusion study on 12/08/2022. Patient performed exercise as per Blaine protocol and was injected 35 mCi of sestamibi was given intravenously one target HR was achieved. Images were obtained using the SPECT gamma camera interlaced with the gating device. Images were obtained in supine position. Resting perfusion study was performed on 12/09/2022. Patient was administered 35 mCi of sestamibi intravenously at rest. Images were then obtained in supine position. Images obtained with and without CT attenuation. Total DLP 91 mGy-cm. Images were processed with the software and compared side to side in short axis, horizontal long axis and vertical long axis views. Findings: The stress perfusion study showed non attenuated images show minimal thinning of the inferior wall of the LV myocardium. Remainder of the LV myocardium is normally perfused. Attenuation images show mildly reduced uptake in the apex of the LV myocardium.. The gated study shows normal LV systolic function with calculated LVEF of 54%. LV cavity is normal in size. The gated study shows normal systolic wall thickening and contraction of all segments. There is no transient ischemic dilation. Resting study shows no change compared to stress perfusion study. Gating at rest reveals normal systolic wall motion with ejection fraction at 59%. The findings are consistent with normal myocardial perfusion. NM/NM cardiolite stress test Impression: 1. Normal myocardial perfusion 2. Gated LVEF is 59% 3. Transient ischemic dilatation not present Stress EKG is negative for ischemia
--- NOTE | 2022-12-08 08:51 | CA_ITS ---
Acquisition Time: 2022-12-08 08:55:30 Total Exercise Time: 00:05:02 Test Indications: Dyspnea Medications: ADVAIR ALBUTEROL DOXYCYCLINE FLONASE Protocol: ALICE Max HR: 136 BPM 83% of Pred: 162 BPM Max BP: 150/070 mmHG Max Work Load: 7.0 METS Exercise stress test with exercise 5 min 2 sec of Alice protocol, achieving 83% MPHR, with severe sob and need to stop, no chest discomfort, with isolated PVCs, with normotensive response to exercise, without EKG changes meeting criteria for ischemia. In recovery his breathing gradually improved to baseline. Nuclear images pending. Test reviewed with Dr Petty. Referred By: Rubens Soto Overread By: MAT OCHOA
== END ==
LOC: HO.CARD 08:49
PROVIDERS: PCP Internal Medicine; Visit Provider Internal Medicine Cardiovascular Disease
DX: R07.9 Chest pain, unspecified (principal); R06.09 Other forms of dyspnea
CPT/HCPCS: 78452; 93017; A9500

== ENCOUNTER → 2022-12-11 10:07 | Outpatient (BNVA) | payer OTHER, SELFPAY | PROVIDERS: PCP Internal Medicine; Visit Provider Internal Medicine Pulmonary Disease | DX: Z13.89 Encounter for screening for other disorder (principal) ==

== ENCOUNTER → 2023-01-01 09:03 | Outpatient (BNVA) | payer OTHER, SELFPAY | PROVIDERS: PCP Internal Medicine; Visit Provider Orthopaedic Surgery | DX: M75.122 Complete rotator cuff tear or rupture of left shoulder, not specified as traumatic (principal) | CPT/HCPCS: 20610; J1100 ==

== ENCOUNTER 2023-01-14 14:22 | Outpatient (REF) | payer OTHER, SELFPAY ==
[2023-01-14 15:50] LABS: MANUAL DIFF FLAG NO
[2023-01-14 16:52] LABS: Basophils Percent Auto 0.3 % (0-2); Eosinophils Percent Auto 0.3 % (0-4); PLT CLUMP 1; SCAN SMEAR FLAG 1
[2023-01-14 16:54] LABS: Hematocrit 37.7 % (42.0-52.0); Hemoglobin 12.1 g/dl (14.0-18.0); Imm Gran Abs Auto 0.02 X10*3/uL (0.00-0.03); Imm Gran Pct Auto 0.6 % (0.0-0.4); Lymphocytes Absolute Auto 0.8 X10*3/uL (1.2-4.9); Lymphocytes Percent Auto 21.3 % (20-40); Mean Corpuscular HGB Conc 32.1 g/dl (31.0-36.0); Mean Corpuscular Hemoglobin 30.9 pg (27.0-33.0); Mean Corpuscular Volume 96.2 fL (80.0-98.0); Mean Platelet Volume 11.7 fL (9.4-12.4); Monocytes Absolute Auto 0.2 X10*3/uL (0.1-1.2); Neutrophils Absolute Auto 2.6 x10*3/uL (2.0-8.3); Neutrophils Percent Auto 72.5 % (45-73); Red Blood Count 3.92 X10*6/uL (4.60-5.80)
[2023-01-14 16:57] LABS: Platelet Count 138 X10*3/uL (160-400); White Blood Count 3.6 X10*3/uL (4.8-10.8)
[2023-01-14 17:24] LABS: Alanine Aminotransferase 15 U/L (0-40); Albumin Level 3.4 g/dL (3.5-5.0); Alkaline Phosphatase 48 U/L (39-117); Anion Gap 12 (12-20); Aspartate Amino Transferase 20 U/L (5-37); Bilirubin Direct 0.2 mg/dL (0.0-0.5); Bilirubin Total 0.9 mg/dL (0.0-1.0); Blood Urea Nitrogen 13 mg/dL (9-16); Calcium 8.5 mg/dL (8.4-10.2); Carbon Dioxide 26 mmol/L (22-29); Chloride 111 mmol/L (96-108); Estimated Glomerular Filt Rate > 60; Glucose Random 100 mg/dL (60-115); Potassium 4.7 mmol/L (3.3-5.1); Sodium 144 mmol/L (135-145); Total Protein 5.3 g/dL (6.5-8.0)
[2023-01-14 17:35] LABS: Erythrocyte Sedimentation Rate 43 MM/HR (0-15)
[2023-01-14 17:39] LABS: TSH reflex Free T4 1.18 uIU/mL (0.32-4.0)
[2023-01-16 01:50] LABS: Syphilis Screen Nonreactive (Nonreactive)
[2023-01-16 03:13] LABS: HBS Num1 0.05 mIU/mL (0-7.99); HBc Num1 0.06 S/CO (0.00-0.79); HIV AB/AG Nonreactive (Nonreactive); HIV Num 1 0.06 S/CO (0.00-0.99); Hepatitis B Core Antibody Nonreactive (Nonreactive); Hepatitis B Surface Antigen Negative (Negative); ~HepC Num1 0.07 S/CO (0.00-0.79); ~Hepatitis B Surface Antibody NONREACTIVE (Nonreactive); ~Hepatitis C Antibody Nonreactive (Nonreactive)
[2023-01-21 09:38] LABS: IgA 65 mg/dL (47-310); IgG 425 mg/dL (600-1640); IgM 422 mg/dL (50-300)
[2023-01-21 13:19] LABS: Anti Nuclear Antibody Screen NEGATIVE (NEGATIVE)
[2023-01-23 13:37] LABS: FIB-ALT 12 U/L (9-46); FIB-Alpha-2-Macroglobulin 151 mg/dL (106-279); FIB-Apolipoprotein A1 133 mg/dL (94-176); FIB-GGT 16 U/L (3-85); FIB-Haptoglobin 217 mg/dL (43-212); FIB-Total Bilirubin 0.5 mg/dL (0.2-1.2); Liver Fibrosis Score 0.12; Liver Fibrosis Stage F0; Nec Inflam Act Grade A0; Nec Inflam Act Score 0.03
== END 2023-01-14 14:23 | disposition home or self-care (01) ==
LOC: HO.LAB 14:22
PROVIDERS: PCP Internal Medicine; Visit Provider Internal Medicine
DX: J90 Pleural effusion, not elsewhere classified (principal); R16.1 Splenomegaly, not elsewhere classified; R06.00 Dyspnea, unspecified; R53.83 Other fatigue; I50.9 Heart failure, unspecified; Z86.16 Personal history of COVID-19
CPT/HCPCS: 36415; 80048; 80076; 81596; 82784; 83520; 84443; 85025; 85652; 86038; 86334; 86704; 86706; 86780; 86803; 87340; 87389

== ENCOUNTER 2023-01-22 13:56 | Outpatient (REF) | payer OTHER, SELFPAY ==
--- NOTE | ~2023-01-22 | XR_ITS ---
EXAMINATION: XR CHEST CLINICAL INFORMATION: Dyspnea COMPARISON: Previous chest x-ray most recent November 2022 TECHNIQUE: 2 views of the chest were obtained. FINDINGS: The cardiac silhouette does not appear enlarged. There is increased central bronchovascular markings. There are increased peripheral interstitial markings and small bilateral pleural effusions. This probably represents CHF. Differential would include airways disease and interstitial lung disease. Clinical correlation recommended. There are degenerative changes of the spine. XR/XR chest 2V IMPRESSION: Probable CHF. Differential would include airways disease and interstitial lung disease. Clinical correlation recommended.
== END 2023-01-22 13:57 | disposition home or self-care (01) ==
LOC: HO.XRAY 13:56
PROVIDERS: PCP Internal Medicine; Visit Provider Internal Medicine Pulmonary Disease
DX: J44.9 Chronic obstructive pulmonary disease, unspecified (principal); R06.00 Dyspnea, unspecified; F17.210 Nicotine dependence, cigarettes, uncomplicated
CPT/HCPCS: 71046

== ENCOUNTER 2023-02-06 08:54 | Outpatient (REF) | payer OTHER, SELFPAY ==
--- NOTE | ~2023-02-06 | US_ITS ---
EXAMINATION: US ABDOMEN COMPLETE CLINICAL INFORMATION: Splenomegaly, not elsewhere classified. COMPARISON: CT abdomen without contrast 03/31/2018. Ultrasound abdomen complete 05/06/2017. CT chest dated 01/27/2018. TECHNIQUE: Real-time imaging of the abdominal viscera. FINDINGS: PANCREAS: Limited. The visualized pancreatic head and body are normal in appearance. The remainder of the pancreas is obscured from visualization by the overlying bowel gas. ABDOMINAL AORTA: The proximal, mid, and distal segments are normal in caliber. INFERIOR VENA CAVA: Visualized portions are normal. LIVER: The liver is normal in size, with a longitudinal span of 14.0 cm. The liver contour is normal. There is diffuse increased liver parenchymal echogenicity. No focal hepatic lesion. There is no intrahepatic biliary duct dilatation seen. GALLBLADDER: Normal. The gallbladder is physiologically distended without evidence of stones, sludge, polyps, wall thickening or pericholecystic fluid. COMMON BILE DUCT: Normal in caliber measuring 0.6 cm in diameter. RIGHT KIDNEY: Normal. No hydronephrosis or renal calculi. The kidney measures 13.2 cm in maximum dimension. Superior to the right kidney, a 2.4 x 1.7 x 2.4 cm heterogeneously hypoechoic, circumscribed mass is seen, possibly an adrenal nodule. No right adrenal nodule was seen on prior examinations, including the CT chest dated 01/27/2022. LEFT KIDNEY: Normal. No hydronephrosis. No renal calculi or focal parenchymal lesions. The kidney measures 12.0 cm in maximum dimension. SPLEEN: No focal finding. The spleen measures 17.8 cm in maximum dimension. FREE FLUID: There is trace perihepatic ascites. US/US abdomen complete IMPRESSION: 1. There is generalized increase in hepatic echotexture, consistent with fatty infiltration or hepatocellular disease. Please correlate clinically. No focal hepatic mass or intrahepatic biliary dilatation is seen. 2. There is splenomegaly. 3. There is trace perihepatic ascites. 4. A 2.4 cm right adrenal nodule is questioned, which can be more fully evaluated with dedicated abdominal CT, if clinically indicated. 5. Technically limited ultrasound examination of the pancreatic tail.
== END 2023-02-06 08:55 | disposition home or self-care (01) ==
LOC: HO.US 08:54
PROVIDERS: PCP Internal Medicine; Visit Provider Internal Medicine
DX: R16.1 Splenomegaly, not elsewhere classified (principal)
CPT/HCPCS: 76700

== ENCOUNTER 2023-02-23 15:23 | Outpatient (AMB) | payer OTHER, SELFPAY ==
[2023-02-23 15:23] VITALS: BP 126/70; PULSE 90; O2SAT 93; BMI 27.6
--- NOTE | 2023-02-23 15:23 | MHC.OFFVIS ---
Intake Vital Signs 02/23/23 15:23 Height 6 ft 2 in Weight 215 lb BMI 27.6 BP 126/70 Pulse 90 Pulse Oximetry (%) 93 Intake Visit Reasons: F/U, US.LAB Allergies No Known Allergies Allergy (Verified 02/23/23 15:32) HPI F/U, US.LAB HPI Details He is here for followup. All labs show no infection. He has anemia and thrombocytopenia but SIEP is normal. 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 Review of Systems Const All systems reviewed & are unremarkable except as noted in HPI and below Physical Exam Vital Signs: Last Vital Signs Pulse 90 02/23/23 15:23 BP 126/70 02/23/23 15:23 Pulse Ox 93 02/23/23 15:23 BMI result Body Mass Index 27.6 Const General: cooperative Orientation/consciousness: patient oriented x3 HEENT Head: Yes normal to inspection Mouth: Normal oral and palatal mucosa present Eyes General: appearance normal, both eyes and all related structures Pupils: Equal, round and reactive pupils present Resp Effort & Inspection: normal respiratory effort Cardio Rate: regular rate Rhythm: regular rhythm GI Palpation (GI): Soft to palpation and nontender General: Yes no CVA tenderness Back/Spine/Pelvis Back: no CVA tenderness Skin General skin exam: no rashes or lesions noted Neuro General: patient oriented x3 Cranial nerves: Yes CN's II-XII intact bilaterally and Yes Equal, round and reactive pupils present Extrem General: Yes normal to inspection Psych Appearance: grossly normal Assessment & Plan Assessment & Plan (1) Fatigue: Comment: There are no signs of immunodeficiency or infection. Code(s): R53.83 - Other fatigue Plan: See Hematology/consider bone marrow biopsy ?hemochromatosis/amyloid/other AFB /fungus No further appointments unless infection found/ (2) Splenomegaly: Code(s): R16.1 - Splenomegaly, not elsewhere classified Coding Level of Care Code Est Pt Level 3 (93197) Diagnoses Fatigue R53.83 Splenomegaly R16.1
== END 2023-02-23 15:30 | disposition home or self-care (01) ==
LOC: HO.HID 15:23
PROVIDERS: PCP Internal Medicine; Visit Provider Internal Medicine
DX: R53.83 Other fatigue (principal); R16.1 Splenomegaly, not elsewhere classified
CPT/HCPCS: 99213

== ENCOUNTER → 2023-02-23 15:23 | Outpatient (BNVA) | payer OTHER, SELFPAY | PROVIDERS: PCP Internal Medicine; Visit Provider Internal Medicine ==

== ENCOUNTER → 2023-03-02 07:52 | Outpatient (REF) | payer OTHER, SELFPAY ==
--- NOTE | 2023-03-02 07:55 | CA_ITS ---
Transthoracic Echocardiogram Patient (Last, First, Middle): Talon Stanton, Gender: Male Date of : 1965 Age: 58 Procedure Date: 03/02/2023 Procedure Type: Transthoracic Echocardiogram Location: OP Height: 182.88 cm Weight: 96.62 kg BSA: 2.19 m2 Heart Rate: 72 bpm BP: 110 / 70 mmHg Insurance Policy Issue Clerk: GENARO Mao MD: Rubens Soto MD General Matcher: Rubens Soto MD Symptoms: I31.39 - Other pericardial effusion (noninflammatory) Study Quality: Fair/Limited ECG Rhythm: Sinus Conclusions: - 1. Normal LV systolic function with grade I diastolic dysfunction 2. Small pericardial effusion. Findings Left Ventricle Normal left ventricular cavity size. The left ventricular systolic function is normal. The visually estimated ejection fraction is between 55-60%. Regional wall motion abnormalities can not be excluded due to suboptimal endocardial definition. Spectral Doppler is indicative of an impaired relaxation filling pattern. E/E prime ratio is <8, consistent with normal filling pressures. Evidence suggests grade I (mild) diastolic dysfunction. Right Ventricle The right ventricle was not well visualized. Pericardium/Pleural There is a small circumferential pericardial effusion. Prior Study Comparison No significant change compared to prior study dated: 11/13/2022. Measurements 2D Linear Measurements LVOT Diam: 2.20 3.0+(-)1.3 cm Mitral Valve MV Pk E: 0.48 MV PK A: 0.66 MV Decel Time: 393.00 E/A: 0.70 E'Lateral: 7.40 E'Medial: 8.05 E/E' Med: 5.90 E/E' Lat: 6.40 PHT: 115.00 MVA PHT: 1.91 Decel [place]: 1.21 LVOT LVOT Pk Tor: 1.28 LVOT Mn Tor: 0.87 LVOT VTI: 0.25 LVOT Pk Grad: 7.00 LVOT Mn Grad: 3.00 LVOT Diam: 2.20 LVOT Area: 3.80 Diastolic Function MV Pk E: 0.48 MV Pk A: 0.66 E/A: 0.70 E'Medial: 8.05 E/E' Med: 5.90 E' Laterial: 7.40 E/E' Lat: 6.40 Updated in Other Vendor System with Status of Final Rubens Soto MD electronically signed on 03/03/2023 9:54:03 AM with status of Final
== END ==
LOC: HO.CARD 07:52
PROVIDERS: PCP Internal Medicine; Visit Provider Internal Medicine Cardiovascular Disease
DX: I31.39 Other pericardial effusion (noninflammatory) (principal); R05.9 Cough, unspecified
CPT/HCPCS: 87070; 87077; 87186; 87205; 93308

== ENCOUNTER → 2023-03-02 07:55 | Outpatient (BNV) | payer OTHER, SELFPAY | PROVIDERS: PCP Internal Medicine; Visit Provider Internal Medicine Cardiovascular Disease | DX: I31.39 Other pericardial effusion (noninflammatory) (principal); I51.9 Heart disease, unspecified | CPT/HCPCS: 93308 ==

== ENCOUNTER 2023-04-06 08:26 | Outpatient (AMB) | payer OTHER, SELFPAY ==
[2023-04-06 08:29] VITALS: BMI 27.6
--- NOTE | 2023-04-06 08:29 | A.OFFVIS_ITS ---
Intake Vital Signs 04/06/23 08:29 Height 6 ft 2 in Weight 215 lb BMI 27.6 Intake Visit Reasons: OV - Left RTC Full-thickness tear Intake Note: Talon is a 58 year old left hand dominant male who presents today for a follow up of his left shoulder. He has a full thickness RTC tear, surgery is recommended treatment however patient would like to wait until fall to book. Last injection was done 01/01/23. Patient reports that his shoulder has gotten progressively worse and would like to book surgery. Allergies No Known Allergies Allergy (Verified 02/23/23 15:32) HPI OV - Left RTC Full-thickness tear HPI Details Talon is a 58 year old man here to discuss his left RTC tear. He is S/P injection on 01/01/23, with limited relief for ~2 days. 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 He is accompanied by his today. He continues to be unable to engage in daily activity due to his pain. He feels his pain and limitations ave been getting progressively worse and would like to proceed with surgery. His chief complaint is of being unable to sleep at night. He would like any medication that would help him to sleep as his reports he is taking Ibuprofen like candy . He has completed a course of PT, which did not improve his pain. He has a Hx of right RTC repair by Dr. David on 10/25/20. He has a hx of COPD. 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 Review of Systems Const All systems reviewed & are unremarkable except as noted in HPI and below Physical Exam Vital Signs: BMI result Body Mass Index 27.6 Const General: no acute distress, alert and awake Orientation/consciousness: patient oriented x3 HEENT Head: Yes normocephalic and Yes atraumatic Eyes EOM: EOMs intact bilaterally Resp Effort & Inspection: normal respiratory effort and able to speak in complete sentences Cardio Jugular venous distension: no JVD Skin General skin exam: turgor normal Rashes: no rashes Neuro General: patient oriented x3 Extrem Other: Left Shoulder: 4/5 empty can ER 35 degrees IR to L5 Psych Appearance: grossly normal Affect: normal affect Attitude: cooperative Results Reviewed Results Reviewed: I personally reviewed relevant MR Images MR/MR shoulder LT wo con, 09/24/21 IMPRESSION: Small insertional tear of the supraspinatus tendon which appears either high-grade partial-thickness or full-thickness. ? Mild arthrosis of the acromioclavicular joint. Assessment & Plan Assessment & Plan (1) Rotator cuff tear, left: Code(s): M75.102 - Unspecified rotator cuff tear or rupture of left shoulder, not specified as traumatic Plan: This is a 58 year old man with a small full-thickness left supraspinatus RTC tear which has not improved with conservative treatment options. He has pain with daily activity which he is greatly limited by, and he is unable to sleep comfortably at night. He is unable to engage in daily activities without pain and feels his QOL is diminished. He has completed a course of PT, with limited improvement, and found little to no relief from a steroid injection on 01/01/23. I discussed his diagnosis and treatment options. Given the nature of the tear and his failure to progress with conservative treatment options, I recommend a left shoulder RTC repair. I discussed the risks, benefits, and alternatives including, but not limited to, the risk of pain, infection, stiffness, need for further surgery as well as potential medical complications such as blood clots, pulmonary embolism and cardiac complications. I discussed the recovery timeline and process as well as the importance of PT. Talon is a good candidate for this surgery, and he wishes to proceed with this decision. He will speak with Miriam to schedule this procedure. 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 Plan Scribed for Giacomo Borden MD by Jair Lala, senior medical technologist, on 04/06/23 at 8:50 AM, EST. Orders: Orders PT Evaluation and Treatment 04/06/23 M67.912 - Unspecified disorder of synovium and tendon, left shoulder, M75.102 - Unspecified rotator cuff tear or rupture of left shoulder, not specified as traumatic Medications: New lidocaine-prilocaine 2.5-2.5 % 30 grams topical BID PRN 30 grams 3RF pain Coding Level of Care Code Est Pt Level 4 (24841) Diagnoses Rotator cuff tear, left M75.102
== END 2023-04-06 09:04 | disposition home or self-care (01) ==
PROVIDERS: Visit Provider Orthopaedic Surgery
DX: M75.102 Unspecified rotator cuff tear or rupture of left shoulder, not specified as traumatic (principal)
CPT/HCPCS: 99214

== ENCOUNTER → 2023-04-06 08:26 | Outpatient (BNVA) | payer OTHER, SELFPAY | PROVIDERS: Visit Provider Orthopaedic Surgery ==

== ENCOUNTER 2023-04-15 14:09 | Outpatient (AMB) | payer OTHER, SELFPAY ==
[2023-04-15 14:09] VITALS: BP 127/70; PULSE 98; O2SAT 92; BMI 26.3
--- NOTE | 2023-04-15 14:09 | MHC.OFFVIS ---
Intake Vital Signs 04/15/23 14:09 Height 6 ft 2 in Weight 205 lb 0.478 oz BMI 26.3 BP 127/70 Blood Pressure Location Lt brachial Position Sitting Pulse 98 Pulse Source Doppler Pulse Oximetry (%) 92 Oxygen Delivery Method Room Air Intake Visit Reasons: productive cough Allergies No Known Allergies Allergy (Verified 04/15/23 14:14) HPI productive cough HPI Details 57-year-old gentleman, active 40+ pack-year smoker, followed for moderate asthma/ COPD overlap syndrome and cough.Patient has been hospitalized at [facility] for bilateral pleural effusions with unclear etiology. His rheumatologic, cardiac, and pulmonary workup was negative.? He cannot afford Stiolto or Anoro and has been using duo nebs.? Continues to complain of dyspnea with intermittent bouts of bronchitic symptoms med that respond poorly to courses of antibiotics and prednisone.? He has been tried on diuretic with no significant changes in his symptoms.? He only derives symptomatic benefit from using duo nebs, however it only lasts for several hours between treatments. Patient has been evaluated by Cardiology and now undergoes further testing.? He also has had two right-sided thoracentesis, initially with drainage of approximately 900 cc of simple fluid with improvement in his dyspnea.? Then patient had COVID requiring brief hospitalization at [facility], after which he developed cough with worsening phlegm and he had a 2nd right-sided thoracentesis, at this time with drainage of only 10 cc of chronic transudative with negative cultures.? Patient continues to complain of cough productive of foul smelling sputum.? 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 At the last office visit patient had another bout of recurrent Pseudomonas pneumonia treated with Levaquin with suboptimal response. 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 Review of Systems Const Denies daytime sleepiness, Denies excessive sweating, Denies fatigue, Denies fever(s), Denies lethargy, Denies malaise, Denies night sweats, Denies snoring and Denies weight loss Eyes Denies blurry vision and Denies itchy eyes ENT Denies nasal congestion, Denies post nasal drip, Denies sinus pain, Denies sinus pressure and Denies other ( Thrush) Card Denies chest pain, Denies pedal edema, Denies dyspnea, Denies orthopnea and Denies paroxysmal nocturnal dyspnea Resp Reports cough, Denies hemoptysis, Reports excessive phlegm production, Denies dyspnea, Denies snoring and Denies wheezing GI Denies abdominal pain and Denies heartburn Musc Denies myalgias, Denies arthralgias and Denies joint swelling Skin/Breast Denies rash Neuro Denies memory loss and Denies seizure-like activity Psych Denies abnormal sleep pattern, Denies anxiety and Denies memory loss Endo Denies excessive sweating, Denies fatigue and Denies heat intolerance Rohit/Lymph Denies easy bruising Aller/Immun Denies itchy eyes, Denies seasonal rhinorrhea and Denies wheezing Physical Exam Vital Signs: Last Vital Signs Pulse 98 04/15/23 14:09 BP 127/70 04/15/23 14:09 Pulse Ox 92 04/15/23 14:09 Oxygen Delivery Method Room Air 04/15/23 14:09 BMI result Body Mass Index 26.3 Const General: no acute distress, alert and awake Nutritional Appearance: not obese Orientation/consciousness: Other orientation findings ( oriented) HEENT Head: Yes atraumatic Eyes General: appearance normal, both eyes and all related structures Sclerae: sclerae normal EOM: EOMs intact bilaterally Neck Neck: Yes no lymphadenopathy, Yes trachea midline and Yes supple Lymphatic: no lymphadenopathy noted Resp Effort & Inspection: normal respiratory effort and no respiratory distress Auscultation: clear to auscultation bilaterally Cardio Rate: regular rate Rhythm: regular rhythm Heart sounds: no gallops, no murmurs and no rubs GI Palpation (GI): Soft to palpation and Other GI palpation findings present ( Nontender) Auscultation: normal bowel sounds Skin General skin exam: other ( warm) Extrem General: Yes no pedal edema, No clubbing and No cyanosis Assessment & Plan Assessment & Plan (1) Pseudomonas pneumonia: Code(s): J15.1 - Pneumonia due to Pseudomonas Plan: Recurred syndrome on as team on year with poor response to Levaquin. Will plan for IV Ertapenem. (2) COPD (chronic obstructive pulmonary disease): Code(s): J44.9 - Chronic obstructive pulmonary disease, unspecified Plan: unable to afford Spiriva, Stiolto, Incruse or Anoro. Continue duo nebs. Orders: Orders IR midline placement Today J15.1 - Pneumonia due to Pseudomonas Medications: New ertapenem 1 g IM DAILY 12 ea 0RF 12 days Coding Level of Care Code Est Pt Level 4 (06668) Diagnoses Pseudomonas pneumonia J15.1 COPD (chronic obstructive pulmonary disease) J44.9
== END 2023-04-15 14:31 | disposition home or self-care (01) ==
PROVIDERS: PCP Internal Medicine; Visit Provider Internal Medicine Pulmonary Disease
DX: J15.1 Pneumonia due to Pseudomonas (principal); J44.9 Chronic obstructive pulmonary disease, unspecified
CPT/HCPCS: 99214

== ENCOUNTER → 2023-04-15 14:09 | Outpatient (BNVA) | payer OTHER, SELFPAY | PROVIDERS: PCP Internal Medicine; Visit Provider Internal Medicine Pulmonary Disease ==

== ENCOUNTER 2023-04-24 12:57 | Emergency (ER) | payer OTHER, SELFPAY | END 2023-04-24 15:03 | disposition left against medical advice (07) | PROVIDERS: Emergency Provider Emergency Medicine; PCP Internal Medicine | DX: R06.00 Dyspnea, unspecified (principal) ==

== ENCOUNTER → 2023-04-30 13:13 | Day surgery (SDC) | payer OTHER, SELFPAY ==
--- NOTE | 2023-04-30 16:24 | HO.MIDLINE_ITS ---
Midline Insertion MIDLINE INSERTION Diagnosis: Pneumonia Indication: residential antibiotics needed Pertinent Labs: reviewed Technique: Using sterile technique including cap and mask, glove and drape, the right arm was prepped and draped in the usual sterile fashion of full barrier technique with CHG. Using ultrasound guidance, right basilic vein access was obtained multiple times by Steven Parish RN and Po Gamez RN, but unable to pass guidewire. Dr Hennessy then accessed right basilic vein. A 20G X 10CM non-PASV Midline was positioned. The procedure was performed in S272. Ultrasound was used to document vein patency and for needle entry. A formal ultrasound picture was recorded. Vascular Database Technician has released the line for use and it is currently dressed with a StatLock, Tegaderm, and CHG disc. Verification has been performed for blood return and line patency. Arm Circumference: 32 CM Equipment: [employer] PowerGlide ST Midline catheter Catheter Type: 20G X 10CM non-PASV Midline Lot #: [id number]
== END ==
LOC: HO.SSS 13:14
PROVIDERS: Radiology Vascular & Interventional Radiology; PCP Internal Medicine; Visit Provider Internal Medicine Pulmonary Disease
DX: J15.1 Pneumonia due to Pseudomonas (principal)
CPT/HCPCS: 36410; 36573; C1751; J1335

== ENCOUNTER 2023-04-30 16:05 | Outpatient (REF) | payer OTHER, SELFPAY | END 2023-04-30 16:06 | disposition home or self-care (01) | LOC: HO.MDS 16:05 | PROVIDERS: PCP Internal Medicine; Visit Provider Internal Medicine Pulmonary Disease | DX: J15.1 Pneumonia due to Pseudomonas (principal) | CPT/HCPCS: 96365; J1335; J1642 ==

== ENCOUNTER 2023-05-01 09:52 | Outpatient (REF) | payer OTHER, SELFPAY | END 2023-05-01 09:53 | disposition home or self-care (01) | LOC: HO.MDS 09:52 | PROVIDERS: Visit Provider Internal Medicine Pulmonary Disease | DX: J15.1 Pneumonia due to Pseudomonas (principal) | CPT/HCPCS: 96365; J1335; J1642 ==

== ENCOUNTER 2023-05-02 09:41 | Outpatient (REF) | payer OTHER, SELFPAY | END 2023-05-02 09:42 | disposition home or self-care (01) | LOC: HO.MDS 09:41 | PROVIDERS: PCP Internal Medicine; Visit Provider Internal Medicine Pulmonary Disease | DX: J15.1 Pneumonia due to Pseudomonas (principal) | CPT/HCPCS: 96365; J1335; J1642 ==

== ENCOUNTER 2023-05-03 08:54 | Outpatient (REF) | payer OTHER, SELFPAY | END 2023-05-03 08:55 | disposition home or self-care (01) | LOC: HO.MDS 08:54 | PROVIDERS: Visit Provider Internal Medicine Pulmonary Disease | DX: J15.1 Pneumonia due to Pseudomonas (principal) | CPT/HCPCS: 96365; J1335 ==

== ENCOUNTER 2023-05-04 08:21 | Outpatient (AMB) | payer OTHER, SELFPAY ==
--- NOTE | 2023-05-04 08:26 | A.OFFVIS_ITS ---
Intake Vital Signs 05/04/23 08:27 Height 6 ft 2 in Weight 205 lb BMI 26.3 Intake Visit Reasons: Pre-Op LT shld RTC repair Intake Note: The patient agreed to use of a medical billing specialist during this encounter. Scribed for Dr. Giacomo Borden by Sandrine Shin, medical billing specialist, on 05/04/2023 at 8:59 am EST. Hanley is a 58 year old male who presents today for a pre operative appointment for upcoming Left Shoulder RTC Repair on 05/20/23. He is currently on IV abx for bacteria in lungs, about 7 days left. Allergies No Known Allergies Allergy (Verified 04/15/23 14:14) HPI Pre-Op LT shld RTC repair HPI Details This is a 58-year-old gentleman who comes in for preop for his left shoulder. He has a high-grade partial-thickness to I rotator cuff tear. He had shoulder surgery on his right several years ago and understands the process. He is currently getting antibiotics from his medical education manager for some sort of lung infection but he expects this to be resolved next week. His surgeries scheduled for approximately 3 weeks from now. He continues to have pain with overhead reaching and activity in his left shoulder. He has pain at night. This HPI Comments History of Present Illness Details Talon Stanton is a a 58 year old male pt that is here for pre op left shoulder RTC repair on 05/20/23. His states he recently was diagnosed with pneumonia, currently taking antibiotics, is having a hard time sleeping and is in pain. 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 Denies pneumonia) GI Reports no additional complaints Musc Reports as per HPI Physical Exam Vital Signs: BMI result Body Mass Index 26.3 Const General: cooperative, healthy appearing, no acute distress and well groomed Orientation/consciousness: oriented to person and oriented to place HEENT Head: Yes normal to inspection, Yes normocephalic and Yes atraumatic Eyes General: appearance normal, both eyes and all related structures Alignment and Position: alignment normal Conjunctivae: conjunctivae normal EOM: EOMs intact bilaterally Neck Neck: Yes normal visual inspection and Yes trachea midline Resp Other: No rerpiratory distress Effort & Inspection: normal respiratory effort and able to speak in complete sentences Cardio Other: Palpable radial pulse with no appreciable rythmic abnormalities GI Other: No abdominal distension Back/Spine/Pelvis Cervical Spine: normal cervical lordosis and cervical ROM normal Skin General skin exam: no rashes or lesions noted Neuro General: oriented to person, oriented to place and gait normal Extrem Other: 4/5 empty can ER 35 degrees IR to L5 Results Reviewed Results Reviewed: I personally reviewed the MR images. Small insertional tear of the supraspinatus tendon which appears either high-grade partial-thickness or full-thickness. Assessment & Plan Assessment & Plan (1) Rotator cuff tear, left: Code(s): M75.102 - Unspecified rotator cuff tear or rupture of left shoulder, not specified as traumatic Plan: This is a 58-year-old gentleman with a left rotator cuff tear. He has failed conservative measures and the quality of his life is diminished. MRI shows a high-grade partial versus small full-thickness tear. We discussed treatment options and together we have concluded that the best next treatment is rotator cuff repair. I reviewed the surgery with him. I discussed the risks benefits and alternatives including but not limited to the risk of pain, infection, stiffness, need for further surgery as well as potential medical complications such as pneumonia. Patient Instructions: RTO for LT shoulder Repair. Coding Level of Care Code Est Pt Level 4 (69113) Diagnoses Rotator cuff tear, left M75.102
[2023-05-04 08:27] VITALS: BMI 26.3
== END 2023-05-04 09:15 | disposition home or self-care (01) ==
PROVIDERS: PCP Internal Medicine; Visit Provider Orthopaedic Surgery
DX: M75.102 Unspecified rotator cuff tear or rupture of left shoulder, not specified as traumatic (principal)
CPT/HCPCS: 99214

== ENCOUNTER 2023-05-04 09:16 | Outpatient (REF) | payer OTHER, SELFPAY | END 2023-05-04 09:17 | disposition home or self-care (01) | LOC: HO.MDS 09:16 | PROVIDERS: Visit Provider Internal Medicine Pulmonary Disease | DX: J15.1 Pneumonia due to Pseudomonas (principal) | CPT/HCPCS: 96365; J1335 ==

== ENCOUNTER 2023-05-05 13:16 | Outpatient (REF) | payer OTHER, SELFPAY | END 2023-05-05 13:17 | disposition home or self-care (01) | LOC: HO.MDS 13:16 | PROVIDERS: Visit Provider Internal Medicine Pulmonary Disease | DX: J15.1 Pneumonia due to Pseudomonas (principal) | CPT/HCPCS: 96365; J1335 ==

== ENCOUNTER 2023-05-06 13:00 | Outpatient (REF) | payer OTHER, SELFPAY ==
[2023-05-06 14:34] LABS: Influenza A PCR NEGATIVE (Negative); Influenza B PCR NEGATIVE (Negative); Resp Syncy Virus RNA Qual PCR NEGATIVE (Negative); SARS COV2 PCR INHOUSE NEGATIVE (Negative)
== END 2023-05-06 13:01 | disposition home or self-care (01) ==
LOC: HO.MDS 13:00
PROVIDERS: Visit Provider Internal Medicine Pulmonary Disease
DX: J15.1 Pneumonia due to Pseudomonas (principal); Z20.822 Contact with and (suspected) exposure to COVID-19; R05.9 Cough, unspecified
CPT/HCPCS: 0241U; 96374; J1335

== ENCOUNTER 2023-05-07 14:41 | Outpatient (REF) | payer OTHER, SELFPAY | END 2023-05-07 14:42 | disposition home or self-care (01) | LOC: HO.MDS 14:41 | PROVIDERS: Visit Provider Internal Medicine Pulmonary Disease | DX: J15.1 Pneumonia due to Pseudomonas (principal) | CPT/HCPCS: 96365; J1335 ==

== ENCOUNTER 2023-05-08 10:02 | Outpatient (REF) | payer OTHER, SELFPAY | END 2023-05-08 10:03 | disposition home or self-care (01) | LOC: HO.MDS 10:02 | PROVIDERS: Visit Provider Internal Medicine Pulmonary Disease | DX: J15.1 Pneumonia due to Pseudomonas (principal) | CPT/HCPCS: 96365; J1335 ==

== ENCOUNTER 2023-05-09 09:54 | Outpatient (REF) | payer OTHER, SELFPAY | END 2023-05-09 09:55 | disposition home or self-care (01) | LOC: HO.MDS 09:54 | PROVIDERS: PCP Student in an Organized Health Care Education/Training Program; Visit Provider Internal Medicine Pulmonary Disease | DX: J15.1 Pneumonia due to Pseudomonas (principal) | CPT/HCPCS: 96365; J1335 ==

== ENCOUNTER 2023-05-10 09:51 | Outpatient (REF) | payer OTHER, SELFPAY | END 2023-05-10 09:52 | disposition home or self-care (01) | LOC: HO.MDS 09:51 | PROVIDERS: PCP Student in an Organized Health Care Education/Training Program; Visit Provider Internal Medicine Pulmonary Disease | DX: J15.1 Pneumonia due to Pseudomonas (principal) | CPT/HCPCS: 96365; J1335 ==

== ENCOUNTER 2023-05-11 10:32 | Outpatient (REF) | payer OTHER, SELFPAY | END 2023-05-11 10:33 | disposition home or self-care (01) | LOC: HO.MDS 10:32 | PROVIDERS: Visit Provider Internal Medicine Pulmonary Disease | DX: J15.1 Pneumonia due to Pseudomonas (principal) | CPT/HCPCS: 96365; J1335 ==

== ENCOUNTER 2023-05-12 14:43 | Outpatient (REF) | payer OTHER, SELFPAY | END 2023-05-12 14:44 | disposition home or self-care (01) | LOC: HO.MDS 14:43 | PROVIDERS: Visit Provider Internal Medicine Pulmonary Disease | DX: J15.1 Pneumonia due to Pseudomonas (principal) | CPT/HCPCS: 96365; J1335 ==

== ENCOUNTER 2023-05-12 15:40 | Outpatient (AMB) | payer OTHER, SELFPAY ==
--- NOTE | 2023-05-12 15:42 | A.OFFVIS_ITS ---
Intake Vital Signs 05/12/23 15:43 Height 6 ft 2 in Weight 208 lb 5.389 oz BMI 26.7 BP 108/64 Blood Pressure Location Lt brachial Position Sitting Pulse 98 Pulse Source Doppler Pulse Oximetry (%) 93 Oxygen Delivery Method Room Air Intake Visit Reasons: productive cough Allergies No Known Allergies Allergy (Verified 05/12/23 15:46) HPI productive cough HPI Details 58-year-old gentleman, active 40+ pack-y ear smoker, followed for moderate asthma/ COPD overlap syndrome and cough.Patient has been hospitalized at [facility] for bilateral pleural effusions with unclear etiology. His rheumatologic, cardiac, and pulmonary workup was negative.? He cannot afford Stiolto or Anoro and has been using duo nebs.? Continues to complain of dyspnea with intermittent bouts of bronchitic symptoms med that respond poorly to courses of antibiotics and prednisone.? He has been tried on diuretic with no significant changes in his symptoms.? He only derives symptomatic benefit from using duo nebs, however it only lasts for several hours between treatments. Patient has been evaluated by Cardiology and now undergoes further testing.? He also has had two right-sided thoracentesis, initially with drainage of approximately 900 cc of simple fluid with improvement in his dyspnea.? Then patient had COVID requiring brief hospitalization at [facility], after which he developed cough with worsening phlegm and he had a 2nd right- sided thoracentesis, at this time with drainage of only 10 cc of chronic transudative with negative cultures.? Patient cough has improved.? After the last office visit patient was started on 12 days of IV ertapenem, now with some improvement later in the treatment course. 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 Review of Systems Const Denies daytime sleepiness, Denies excessive sweating, Denies fatigue, Denies fever(s), Denies lethargy, Denies malaise, Denies night sweats, Denies snoring and Denies weight loss Eyes Denies blurry vision and Denies itchy eyes ENT Denies nasal congestion, Denies post nasal drip, Denies sinus pain, Denies sinus pressure and Denies other ( Thrush) Card Denies chest pain, Denies pedal edema, Denies dyspnea, Reports dyspnea on exertion, Denies orthopnea and Denies paroxysmal nocturnal dyspnea Resp Reports cough, Denies hemoptysis, Reports excessive phlegm production, Denies dyspnea, Reports dyspnea on exertion, Denies snoring and Denies wheezing GI Denies abdominal pain and Denies heartburn Musc Denies myalgias, Denies arthralgias and Denies joint swelling Skin/Breast Denies rash Neuro Denies memory loss and Denies seizure-like activity Psych Denies abnormal sleep pattern, Denies anxiety and Denies memory loss Endo Denies excessive sweating, Denies fatigue and Denies heat intolerance Rohit/Lymph Denies easy bruising Aller/Immun Denies itchy eyes, Denies seasonal rhinorrhea and Denies wheezing Physical Exam Vital Signs: Last Vital Signs Pulse 98 05/12/23 15:43 BP 108/64 05/12/23 15:43 Pulse Ox 93 05/12/23 15:43 Oxygen Delivery Method Room Air 05/12/23 15:43 BMI result Body Mass Index 26.7 Const General: no acute distress and alert Nutritional Appearance: not obese Orientation/consciousness: Other orientation findings ( oriented) HEENT Head: Yes atraumatic Eyes General: appearance normal, both eyes and all related structures Sclerae: sclerae normal EOM: EOMs intact bilaterally Neck Neck: Yes supple Lymphatic: no lymphadenopathy noted Resp Effort & Inspection: normal respiratory effort and no use of accessory muscles Auscultation: clear to auscultation bilaterally Cardio Rate: regular rate Rhythm: regular rhythm Heart sounds: no gallops, no murmurs and no rubs Skin General skin exam: other ( warm) Extrem General: No clubbing, No cyanosis and No edema Assessment & Plan Assessment & Plan (1) Pseudomonas pneumonia: Code(s): J15.1 - Pneumonia due to Pseudomonas Plan: Improvement on IV ertapenem, will add additional 7 days for consolidative effect. (2) COPD (chronic obstructive pulmonary disease): Code(s): J44.9 - Chronic obstructive pulmonary disease, unspecified Plan: Continue with current regimen of duo nebs and Advair. Coding Level of Care Code Est Pt Level 4 (35249) Diagnoses Pseudomonas pneumonia J15.1 COPD (chronic obstructive pulmonary disease) J44.9
[2023-05-12 15:43] VITALS: BP 108/64; PULSE 98; O2SAT 93; BMI 26.7
== END 2023-05-12 16:01 | disposition home or self-care (01) ==
PROVIDERS: PCP Internal Medicine; Visit Provider Internal Medicine Pulmonary Disease
DX: J15.1 Pneumonia due to Pseudomonas (principal); J44.9 Chronic obstructive pulmonary disease, unspecified
CPT/HCPCS: 99214

== ENCOUNTER 2023-05-13 10:48 | Outpatient (REF) | payer OTHER, SELFPAY | END 2023-05-13 10:49 | disposition home or self-care (01) | LOC: HO.MDS 10:48 | PROVIDERS: PCP Student in an Organized Health Care Education/Training Program; Visit Provider Internal Medicine Pulmonary Disease | DX: J15.1 Pneumonia due to Pseudomonas (principal) | CPT/HCPCS: 96365; J1335 ==

== ENCOUNTER 2023-05-14 14:59 | Outpatient (REF) | payer OTHER, SELFPAY | END 2023-05-14 15:00 | disposition home or self-care (01) | LOC: HO.MDS 14:59 | PROVIDERS: Visit Provider Internal Medicine Pulmonary Disease | DX: J15.1 Pneumonia due to Pseudomonas (principal) | CPT/HCPCS: 96365; J1335 ==

== ENCOUNTER 2023-05-15 15:01 | Outpatient (REF) | payer OTHER, SELFPAY | END 2023-05-15 15:02 | disposition home or self-care (01) | LOC: HO.MDS 15:01 | PROVIDERS: Visit Provider Internal Medicine Pulmonary Disease | DX: J15.1 Pneumonia due to Pseudomonas (principal) | CPT/HCPCS: 96365; J1335 ==

== ENCOUNTER 2023-05-16 09:06 | Outpatient (REF) | payer OTHER, SELFPAY | END 2023-05-16 09:07 | disposition home or self-care (01) | LOC: HO.MDS 09:06 | PROVIDERS: PCP Internal Medicine; Visit Provider Internal Medicine Pulmonary Disease | DX: J15.1 Pneumonia due to Pseudomonas (principal) | CPT/HCPCS: 96365; J1335 ==

== ENCOUNTER 2023-05-17 09:25 | Outpatient (REF) | payer OTHER, SELFPAY | END 2023-05-17 09:26 | disposition home or self-care (01) | LOC: HO.MDS 09:25 | PROVIDERS: Visit Provider Internal Medicine Pulmonary Disease | DX: J15.1 Pneumonia due to Pseudomonas (principal) | CPT/HCPCS: 96365; J1335 ==

== ENCOUNTER 2023-05-18 11:23 | Outpatient (REF) | payer OTHER, SELFPAY ==
--- NOTE | 2023-05-18 12:43 | HO.REMOVAL ---
Removal of PICC/Midline Removal of PICC/Midline: Removal of Midline: 1. Date: 05/18/23 2. Reason removed: NO LONGER NEEDED COMPLETE TREATMENTS WITH ANTIBX 3. Inserted length: [id number] NON-PASV MIDLINE 4. Removed length: INTACT [id number] NON-PASV MIDLINE FROM RIGHT BASILIC VEIN 5. A dressing (2X2 WITH TEGADERM ) was placed over the site upon removal. No edema or bleeding at the site FROM THE RIGHT BASILIC VEIN
== END 2023-05-18 11:24 | disposition home or self-care (01) ==
LOC: HO.MDS 11:23
PROVIDERS: Visit Provider Internal Medicine Pulmonary Disease
DX: J15.1 Pneumonia due to Pseudomonas (principal)
CPT/HCPCS: 96365; J1335

== ENCOUNTER 2023-07-03 14:18 | Outpatient (AMB) | payer OTHER, SELFPAY ==
[2023-07-03 14:31] VITALS: BMI 26.7
--- NOTE | 2023-07-03 14:31 | MHC.OFFVIS ---
Intake Vital Signs 07/03/23 14:31 Height 6 ft 2 in Weight 208 lb BMI 26.7 Intake Visit Reasons: Pre-Op LT SHLD RTC repair 07/15/23NE Intake Note: Talon is a 58 year old male who presnet today for a post op appointment for his left shoulder RTC repair 07/15/23 NE Allergies No Known Allergies Allergy (Verified 07/03/23 14:32) HPI Pre-Op LT SHLD RTC repair 07/15/23NE HPI Details 58-year-old left hand dominant male, who is [place] speaking, presents in the office today for his preoperative history and physical exam prior to a left shoulder rotator cuff repair to be performed on 07/15/[address] Giacomo Borden. 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 Patient has no known allergy history. Patient is currently taking, as follows: -Advair HFA 115-21 mcg/actuation 2 puffs inhalation Q12H -Albuterol sulfate 2.5 mg inhalation Q4-6H PRN -Ertapenem 1 g IV daily -Fluticasone propionate 50 mcg/actuation 1 spray intranasal BID PRN -Furosemide 20 mg PO QAM -Ibuprofen 800 mg PO TID PRN -Ipratropium-albuterol 0.5-3 mg inhalation Q4-6H PRN Patient has a medical history, as follows: -PICC (peripherally inserted central catheter) in place; 04/30/23 for antibiotics for recent pneumonia -Splenomegaly -ETOH abuse -Anemia with low platelet count -Pulmonary nodules -COPD (chronic obstructive pulmonary disease) Patient has a surgical history, as follows: -History of thoracentesis; 10/2022-right & 11/2022-left -History of repair of right rotator cuff -History of colonoscopy -History of liver biopsy Patient has a social history, as follows: -Tobacco; Cigarettes about 10 per day. 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 Review of Systems Const All systems reviewed & are unremarkable except as noted in HPI and below Physical Exam Vital Signs: BMI result Body Mass Index 26.7 Const General: cooperative, healthy appearing, comfortable, no acute distress, well developed, alert and awake Orientation/consciousness: patient oriented x3 HEENT Head: Yes normal to inspection, Yes normocephalic and Yes atraumatic Eyes General: appearance normal, both eyes and all related structures EOM: EOMs intact bilaterally Neck Neck: Yes normal visual inspection and Yes no lymphadenopathy Resp Effort & Inspection: normal respiratory effort and able to speak in complete sentences Cardio Jugular venous distension: no JVD Rate: regular rate Peripheral pulses: Peripheral pulses 2+ throughout GI Inspection: Yes normal to inspection Palpation (GI): Soft to palpation Skin General skin exam: no rashes or lesions noted Rashes: no rashes Neuro General: patient oriented x3 Extrem Other: Left Shoulder: 4/5 empty can ER 35 degrees IR to L5 Psych Appearance: grossly normal Mental Status: mental status grossly normal Affect: normal affect Attitude: cooperative Assessment & Plan Assessment & Plan (1) Rotator cuff tear, left: Code(s): M75.102 - Unspecified rotator cuff tear or rupture of left shoulder, not specified as traumatic Qualifiers: Rotator cuff tear extent: unspecified tear extent Rotator cuff tear trauma status: unspecified whether traumatic Qualified Code(s): M75.102 - Unspecified rotator cuff tear or rupture of left shoulder, not specified as traumatic Plan Mr. Stanton is a 58-year-old left hand dominant male, who is [place] speaking, presents in the office today for his preoperative history and physical exam prior to a left shoulder rotator cuff repair to be performed on 07/15/[address] Giacomo Borden. 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 Patient has no known allergy history. Patient is currently taking, as follows: -Advair HFA 115-21 mcg/actuation 2 puffs inhalation Q12H -Albuterol sulfate 2.5 mg inhalation Q4-6H PRN -Ertapenem 1 g IV daily -Fluticasone propionate 50 mcg/actuation 1 spray intranasal BID PRN -Furosemide 20 mg PO QAM -Ibuprofen 800 mg PO TID PRN -Ipratropium-albuterol 0.5-3 mg inhalation Q4-6H PRN Patient has a medical history, as follows: -PICC (peripherally inserted central catheter) in place; 04/30/23 for antibiotics for recent pneumonia -Splenomegaly -ETOH abuse -Anemia with low platelet count -Pulmonary nodules -COPD (chronic obstructive pulmonary disease) Patient has a surgical history, as follows: -History of thoracentesis; 10/2022-right & 11/2022-left -History of repair of right rotator cuff -History of colonoscopy -History of liver biopsy Patient has a social history, as follows: -Tobacco; Cigarettes about 10 per day. I discussed in detail the procedure and what to expect pre and post operatively. We discussed the risks, benefits and alternatives to the surgery as well as the rehabilitation course. The risks; which include, but are not limited to infection, bleeding, nerve injury, ongoing pain, swelling, and stiffness, perioperative risk of injury to bones and soft tissues, and blood clots. I have answered all questions and with their understanding they have consented to move forward with a left shoulder rotator cuff repair to be performed on 07/15/[address] Giacomo Borden. He was fitted for his sling while in the office today. Follow up will be at the post operative appointment on 07/21/2023, or sooner if needed. Orders: Orders PT Evaluation and Treatment Today Z98.890 - Other specified postprocedural states Patient Instructions: Scribed for Josy Higgins PA-C by Amber Pal medical anthropology director, on 07/03/2023 at 2:20 pm, EST. Coding Level of Care Code Global (06142) Diagnoses Tear of left rotator cuff, unspecified tear extent, unspecified whether traumatic M75.102 Rotator cuff tear extent: unspecified tear extent Rotator cuff tear trauma status: unspecified whether traumatic
== END 2023-07-03 15:21 | disposition home or self-care (01) ==
PROVIDERS: PCP Internal Medicine; Visit Provider Physician Assistant
DX: M75.102 Unspecified rotator cuff tear or rupture of left shoulder, not specified as traumatic (principal)
CPT/HCPCS: 99024

== ENCOUNTER → 2023-07-03 14:18 | Outpatient (BNVA) | payer OTHER, SELFPAY | PROVIDERS: PCP Internal Medicine; Visit Provider Physician Assistant ==

== ENCOUNTER 2023-07-14 13:22 | Outpatient (AMB) | payer OTHER, SELFPAY ==
[2023-07-14 13:24] VITALS: BP 118/67; PULSE 90; O2SAT 92; BMI 26.6
--- NOTE | 2023-07-14 13:24 | A.OFFVIS_ITS ---
Intake Vital Signs 07/14/23 13:24 Height 6 ft 2 in Weight 207 lb 3.752 oz BMI 26.6 BP 118/67 Blood Pressure Location Rt brachial Position Sitting Pulse 90 Pulse Source Doppler Pulse Oximetry (%) 92 Oxygen Delivery Method Room Air Intake Visit Reasons: Surgical clearance, Ortho 07/15/23 Allergies No Known Allergies Allergy (Verified 07/14/23 13:27) HPI Surgical clearance, Ortho 07/15/23 HPI Details 58-year-old gentleman, active 40+ pack-y ear smoker, followed for moderate asthma/ COPD overlap syndrome and cough.Patient has been hospitalized at [facility] for bilateral pleural effusions with unclear etio logy. His rheumatologic, cardiac, and pulmonary workup was negative.? He cannot afford Stiolto or Anoro and has been using duo nebs.? Continues to complain of dyspnea with intermittent bouts of bronchitic symptoms med that respond poorly to courses of antibiotics and prednisone.? He has been tried on diuretic with no significant changes in his symptoms.? He only derives symptomatic benefit from using duo nebs, however it only lasts for several hours between treatments. Patient has been evaluated by Cardiology and now undergoes further testing.? He also has had two right-sided thoracentesis, initially with drainage of approximately 900 cc of simple fluid with improvement in his dyspnea.? Then patient had COVID requiring brief hospitalization at [facility], after which he developed cough with worsening phlegm and he had a 2nd right-sided thoracentesis, at this time with drainage of only 10 cc of chronic transudative with negative cultures.? His sputum cultures have been growing Pseudomonas. He has had peak with a total of 90 days of IV are dependent therapy with significant improvement of his cough and sputum production for approximately 1 months, after which he started developing productive cough again. He also was started on Xolair by his svp research & ebusiness operations. 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 Review of Systems Const Denies daytime sleepiness, Denies excessive sweating, Denies fatigue, Denies fever(s), Denies lethargy, Denies malaise, Denies night sweats, Denies snoring and Denies weight loss Eyes Denies blurry vision and Denies itchy eyes ENT Denies nasal congestion, Denies post nasal drip, Denies sinus pain, Denies sinus pressure and Denies other ( Thrush) Card Denies chest pain, Denies pedal edema, Denies dyspnea, Denies orthopnea and Denies paroxysmal nocturnal dyspnea Resp Reports cough, Denies hemoptysis, Reports excessive phlegm production, Denies dyspnea, Denies snoring and Denies wheezing GI Denies abdominal pain and Denies heartburn Musc Denies myalgias, Denies arthralgias and Denies joint swelling Skin/Breast Denies rash Neuro Denies memory loss and Denies seizure-like activity Psych Denies abnormal sleep pattern, Denies anxiety and Denies memory loss Endo Denies excessive sweating, Denies fatigue and Denies heat intolerance Rohit/Lymph Denies easy bruising Aller/Immun Denies itchy eyes, Denies seasonal rhinorrhea and Denies wheezing Physical Exam Vital Signs: Last Vital Signs Pulse 90 07/14/23 13:24 BP 118/67 07/14/23 13:24 Pulse Ox 92 07/14/23 13:24 Oxygen Delivery Method Room Air 07/14/23 13:24 BMI result Body Mass Index 26.6 Const General: no acute distress and alert Nutritional Appearance: not obese Orientation/consciousness: Other orientation findings ( oriented) HEENT Head: Yes atraumatic Eyes General: appearance normal, both eyes and all related structures Sclerae: sclerae normal EOM: EOMs intact bilaterally Neck Neck: Yes supple Lymphatic: no lymphadenopathy noted Resp Effort & Inspection: normal respiratory effort and no use of accessory muscles Auscultation: clear to auscultation bilaterally Cardio Rate: regular rate Rhythm: regular rhythm Heart sounds: no gallops, no murmurs and no rubs Skin General skin exam: other ( warm) Extrem General: No clubbing, No cyanosis and No edema Assessment & Plan Assessment & Plan (1) Chronic cough: Code(s): R05.3 - Chronic cough Plan: Patient with chronic recurrent cough productive of yellowish sputum secondary to colonization by Pseudomonas aeruginosa with intermittent exacerbations. Now with another exacerbation. Will start on nebulized tobramycin. (2) Preop pulmonary/respiratory exam: Code(s): Z01.811 - Encounter for preprocedural respiratory examination Plan: At this time patient is at low risk for pulmonary perioperative complications for the proposed rotator cuff repair under general anesthesia, despite underlying chronic productive cough. (3) COPD (chronic obstructive pulmonary disease): Code(s): J44.9 - Chronic obstructive pulmonary disease, unspecified Plan: Underlying COPD baseline controlled on Advair, duo nebs, and albuterol. Continue current regimen. Coding Level of Care Code Est Pt Level 4 (59759) Diagnoses Chronic cough R05.3 Preop pulmonary/respiratory exam Z01.811 COPD (chronic obstructive pulmonary disease) J44.9
== END 2023-07-14 13:48 | disposition home or self-care (01) ==
PROVIDERS: PCP Internal Medicine; Visit Provider Internal Medicine Pulmonary Disease
DX: R05.3 Chronic cough (principal); Z01.811 Encounter for preprocedural respiratory examination; J44.9 Chronic obstructive pulmonary disease, unspecified
CPT/HCPCS: 99214

== ENCOUNTER → 2023-07-14 13:22 | Outpatient (BNVA) | payer OTHER, SELFPAY | PROVIDERS: PCP Internal Medicine; Visit Provider Internal Medicine Pulmonary Disease ==

== ENCOUNTER 2023-07-15 07:45 | Day surgery (SDC) | payer OTHER, SELFPAY ==
[2023-05-15 15:27] VITALS: BMI 26.7
--- NOTE | 2023-07-13 12:06 | HO.ANESPROP2 ---
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 Followed by [facility]. Started on fexofenadine. Benadryl and H2 carter preop. ETOH abuse - trace ascites and splenomegaly by abdominal US 01/2023 [facility] Active Problems Active Problems: All Active Problems (Updated 07/03/23 @ 14:35 by Amber Pal) Status post left rotator cuff repair (Acute) Pseudomonas pneumonia (Acute) Arthritis of both hands (Acute) PRUITT (dyspnea on exertion) (Acute) Dyspnea (Acute) Pleural effusion (Acute) Daytime sleepiness (Acute) Loud snoring (Acute) Environmental allergies (Acute) Abnormal CT scan, chest (Acute) Cough (Acute) Rotator cuff tear, left (Acute) Knee effusion, right (Acute) Shoulder weakness (Acute) S/P right rotator cuff repair (Acute) Aftercare following surgery for injury or trauma (Acute) Complete tear of right rotator cuff (Acute) Fatigue (Acute) Splenomegaly (Acute) COPD (chronic obstructive pulmonary disease) (Acute) Past Medical History Medical History PICC (peripherally inserted central catheter) in place Fatigue Splenomegaly ETOH abuse Anemia with low platelet count Pulmonary nodules COPD (chronic obstructive pulmonary disease) Family History Family History Father Stroke Mother Cancer Surgical History Surgical History (Updated 07/21/23 @ 09:08 by Amber Pal) History of thoracentesis Hx of repair of right rotator cuff History of colonoscopy History of liver biopsy Social History Social History Patient Tobacco Use Status: Former Tobacco user Quit Date: one year ago Cigarettes Per Day: 10 Years Smoked: 35 yrs Current occupational status: employed 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 100 mcg-umeclid 1 ea inhalation DAILY 07/15/23 07/15/23 Unknown History 62.5 mcg-vilant 25 mcg inhalat.powder (Trelegy Ellipta) umeclidinium 62.5 mcg-vilanterol 1 ea inhalation QAM 07/15/23 07/15/23 Unknown History 25 mcg/actuation powdr for inhalation (Anoro Ellipta) Exam Height,Weight and Vital Signs: Height 6 ft 2 in Weight 94.347 kg Assessment and Plan Assessment Anesthesia Assessment: Chart Reviewed Documented by User: Jose Rodriges MD 07/23/23 07:28 [facility] Past Medical History Medical History PICC (peripherally inserted central catheter) in place Fatigue Splenomegaly ETOH abuse Anemia with low platelet count Pulmonary nodules COPD (chronic obstructive pulmonary disease) Family History Family History Father Stroke Mother Cancer Family history of problems with anesthesia: No Surgical History Surgical History (Updated 07/21/23 @ 09:08 by Amber Pal) History of thoracentesis Hx of repair of right rotator cuff History of colonoscopy History of liver biopsy History of Problems with Anesthesia: No Social History Social History Patient Tobacco Use Status: Former Tobacco user Quit Date: one year ago Cigarettes Per Day: 10 Years Smoked: 35 yrs Current occupational status: employed 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 100 mcg-umeclid 1 ea inhalation DAILY 07/15/23 07/15/23 Unknown History 62.5 mcg-vilant 25 mcg inhalat.powder (Trelegy Ellipta) umeclidinium 62.5 mcg-vilanterol 1 ea inhalation QAM 07/15/23 07/15/23 Unknown History 25 mcg/actuation powdr for inhalation (Anoro Ellipta) Exam Airway Mallampati Class: II TM Dist: >3cm Neck ROM: Limited Heart: rrr Lungs: cta Assessment and Plan Final Anesthetic Review Family History of Problems with Anesthesia: No History of Problems with Anesthesia: No NPO: Yes ASA Class: III Final Preanesthetic Review: No Changes in Pt Med Stat, Meds/Allgs Chart Reviewed, Consent Obtained/Reviewed and Anes Risks/Benef Reviewed Patient Risk: Intermediate Procedure Risk: Intermediate Anesthetic Plan Anesthetic Plan: GA Disposition: Standard PACU
[2023-07-15] VITALS (11 sets, daily range): BP systolic 93–106; BP diastolic 54–70; PULSE 63–87; RESP 16–21; TEMP 36.3–36.4; O2SAT 88–98; BMI 27.4
[2023-07-15 08:34] LABS: Hematocrit 41.7 % (42.0-52.0); Hemoglobin 13.4 g/dl (14.0-18.0); Mean Corpuscular HGB Conc 32.1 g/dl (31.0-36.0); Mean Corpuscular Hemoglobin 30.7 pg (27.0-33.0); Mean Corpuscular Volume 95.4 fL (80.0-98.0); Mean Platelet Volume 10.1 fL (9.4-12.4); Platelet Count 174 X10*3/uL (160-400); Red Blood Count 4.37 X10*6/uL (4.60-5.80); Red Cell Distribution Width 13.5 % (11.0-16.0); White Blood Count 3.1 X10*3/uL (4.8-10.8)
[2023-07-15] MEDS: Lactated Ringers 1,000 ML 100 ML IVCONT (08:43)
[2023-07-15] MEDS: Famotidine/PF 20 MG/2 ML VIAL IVPUSH (08:47)
[2023-07-15 08:49] LABS: Alanine Aminotransferase 15 U/L (0-40); Albumin Level 3.6 g/dL (3.5-5.0); Alkaline Phosphatase 54 U/L (39-117); Anion Gap 10 (12-20); Aspartate Amino Transferase 18 U/L (5-37); Bilirubin Total 0.9 mg/dL (0.0-1.0); Blood Urea Nitrogen 18 mg/dL (9-16); Calcium 8.8 mg/dL (8.4-10.2); Carbon Dioxide 27 mmol/L (22-29); Chloride 105 mmol/L (96-108); Creatinine Clr Calc Pharmacy 123.3; Estimated Glomerular Filt Rate > 60; Glucose Fasting 109 mg/dL (60-99); Prothrombin Time 11.8 SEC (11.1-13.3); Sodium 138 mmol/L (135-145); Total Protein 6.2 g/dL (6.5-8.0)
[2023-07-15] MEDS: Albuterol Sulfate (0.083%) 2.5 MG/3 ML VIAL.NEB INHALE (08:50)
--- NOTE | 2023-07-15 10:45 | MHC.SHP ---
Pre-Procedural Eval Section A Date of Service: 07/15/23 The patient is an INPATIENT: No Changes since office visit: No Cold of Flu in the past 2 weeks, No New Medical Problems, No Changes in Medication and No Patient answered all questions The History & Physical has been completed within 30 days and I have reviewed it.: Yes Section B Chief Complaint: Unspecified rotator cuff tear or rupture of left Allergies: Allergies Allergy/AdvReac Type Severity Reaction Status Date / Time No Known Allergies Allergy Verified 07/15/23 08:10 Plan I have reviewed the history and physical and performed a pertinent physical examination on my patient. No changes have occurred unless specified. Time Spent With Patient Time: Total time managing care of this patient today ____ minutes.
--- NOTE | 2023-07-15 13:09 | P.BOP_ITS ---
Brief Operative Note Date of Service: 07/15/23 Pre-op diagnosis: Left rtc tear Post-op diagnosis: same Procedure: Left rtc repair Implants: Carranza and nephew medial row double loaded 4.75 x 2 and knotless lateral helacoil 5.5 x 3 Surgeon: Giacomo Borden MD Anesthesia: GETA and regional Was an Pathological Technician used for this Procedure?: Yes Pathological Technician: Josy Higgins Estimated blood loss (mL): 20 IV fluids (mL): 800 Pathology: none sent Condition: stable Disposition: PACU
--- NOTE | 2023-07-16 16:40 | W.PM.OPN ---
Operative Note Operative Note Date of Service: 07/15/23 Narrative: Date of Service: 07/15/23 Pre-op diagnosis: Left rtc tear Post-op diagnosis: same Procedure: Left rtc repair Implants: Carranza and nephew medial row double loaded 4.75 x 2 and knotless lateral helacoil 5.5 x 3 Surgeon: Giacomo Borden MD Anesthesia: GETA and regional Was an Train Attendant used for this Procedure?: Yes Train Attendant: Josy Higgins Estimated blood loss (mL): 20 IV fluids (mL): 800 Pathology: none sent Condition: stable Disposition: PACU Procedure in detail: Patient was brought to the operating room and placed the the beach chair position. All bony prominences were well padded and the limb was prepped and draped in standard sterile fashion. A time out was called to identify proper site, proper procedure and proper surgeon. IV antibiotics per weight were administered. I began by making a posterolateral stab incision with a 15 blade. A blunt trochar was placed into the glenohumeral joint and I insufflated the joint with saline and a 30 degree arthroscope was placed. I established an outside- in anterior portal just distal to the biceps tendon. I then began my inspection of the glenohumeral joint. There was superior labreal degeneration and type 1 SLAP which I derided with a shaver and cautery. There was anterior interval synovitis which I debrided with cautery releasing the anterior interval. There was an intact subscapularis. There were minimal cartilage changes at the inferior glenoid without humeral head changes. There was a full thickness RTC tear. I then removed the trochar and entered the subacromial space. A direct lateral portal was then established and I performed a bursectomy. The cuff was then examined. There was a full thickness tear of the supra and infraspinatus without retraction. The tear was mobile. I placed two medial row double loaded anchors after using a tap just adjacent to the articular cartilage and then brought the suture limbs ( 8) through the medial cuff. I added a looped suture anteriorly. I then debrided the bare area down to bleeding bone and, using a modified cross bridge configuration, brought 4 limbs to each of two lateral 5.0 anchors and the looped suture to the anterior anchor. This re-approximated the cuff anatomy anatomically. I added additional anchor anteriorly as his bone quality was poor. I performed a decompression removing 4-5mm from the anterior acromion. Once I was satisfied with the repair final images were captured and I removed all instrumentation. Portals were closed with nylon. Patient was placed in an abduction sling, extubated and brought to the recovery room in stable condition. There were no known complications.
== END 2023-07-15 15:13 | disposition home or self-care (01) ==
PROVIDERS: Nurse Practitioner; PCP Student in an Organized Health Care Education/Training Program; Visit Provider Orthopaedic Surgery
PROC: (CPT 29827; principal; 2023-07-15 09:50)
DX: M75.122 Complete rotator cuff tear or rupture of left shoulder, not specified as traumatic (principal); J44.9 Chronic obstructive pulmonary disease, unspecified; D64.9 Anemia, unspecified; R16.1 Splenomegaly, not elsewhere classified; R06.83 Snoring; R40.0 Somnolence; R06.00 Dyspnea, unspecified; Z87.891 Personal history of nicotine dependence
CPT/HCPCS: 29827; 36415; 80053; 85027; 85610; 94640; C1713; J0131; J0690; J1100; J2371; J2405; J2704

== ENCOUNTER → 2023-07-15 07:45 | Outpatient (BNV) | payer OTHER, SELFPAY | PROVIDERS: PCP Student in an Organized Health Care Education/Training Program; Visit Provider Orthopaedic Surgery | DX: M75.102 Unspecified rotator cuff tear or rupture of left shoulder, not specified as traumatic (principal) | CPT/HCPCS: 29827 ==

== ENCOUNTER 2023-07-21 08:59 | Outpatient (AMB) | payer OTHER, SELFPAY ==
--- NOTE | 2023-07-21 09:00 | MHC.OFFVIS ---
Intake Intake Visit Reasons: PO LT shld RTC repair 07/15/23NE Intake Note: Talon is a 58 year old left hand dominant male who presents today for a post op appointment s/p left shoulder RTC repair, 07/15/23 NE. Patient reports he is still having pain and discomfort. Allergies No Known Allergies Allergy (Verified 07/21/23 09:01) HPI PO LT shld RTC repair 07/15/23NE HPI Details 58-year-old left hand dominant male, who is Indonesian speaking, presents in the office today 6 days status post left rotator cuff repair, which was performed on 07/15/[address] Borden. While in the office today the patient reports he is still having pain and discomfort in the left shoulder. 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 Sutures intact. Ecchymosis extending from the proximal to the distal bicep. No surrounding erythema or drainage. No signs of infection. Forward flexion and abduction to 30 degrees. External rotation to neutral. NVI. Assessment & Plan Assessment & Plan (1) Status post left rotator cuff repair: Comment: 07/15/2023 NE Code(s): Z98.890 - Other specified postprocedural states Plan Mr. Stanton is a 58-year-old left hand dominant male, who is Indonesian speaking, presents in the office today 6 days status post left rotator cuff repair, which was performed on 07/15/[address] Borden. While in the office today the patient reports he is still having pain and discomfort in the left shoulder. Sutures were removed and steri-stripes were applied while in the office today. He will remain in the sling for 6 weeks. Post-operative photos were reviewed while in the office today. He will attend his first physical therapy session later today, 07/21/2023. Follow up will be in [address] Borden, or sooner if needed. Patient Instructions: Scribed for Josy Higgins PA-C by Amber Pal medical records analyst, on 07/21/2023 at 9:00 am EST. Coding Level of Care Code Global (06323) Diagnoses Status post left rotator cuff repair Z98.890
== END 2023-07-21 09:42 | disposition home or self-care (01) ==
LOC: HO.HOS 08:59
PROVIDERS: PCP Internal Medicine; Visit Provider Physician Assistant
DX: Z98.890 Other specified postprocedural states (principal)
CPT/HCPCS: 99024

== ENCOUNTER → 2023-07-21 08:59 | Outpatient (BNVA) | payer OTHER, SELFPAY | PROVIDERS: PCP Internal Medicine; Visit Provider Physician Assistant ==

== ENCOUNTER → 2023-08-07 11:16 | Day surgery (SDC) | payer OTHER, SELFPAY ==
--- NOTE | 2023-08-07 12:49 | HO.MIDLINE ---
Midline Insertion MIDLINE INSERTION Diagnosis: Pneumonia Indication: IV antibiotics Pertinent Labs: Reviewed Technique: Using sterile technique including cap and mask, glove and drape, the right arm was prepped and draped in the usual sterile fashion of full barrier technique with CHG. Using ultrasound guidance, the right basilic vein access was obtained by this RN in a single attempt. A 20 guage 8 cm NON-PASV Midline was positioned. The procedure was performed in S272. Ultrasound was used to document vein patency and for needle entry. A formal ultrasound picture was recorded. Vascular Coverage Specialist Rn has released the line for use and it is currently dressed with a StatLock, Tegaderm, and CHG disc. Verification has been performed for blood return and line patency. Arm Circumference: 33 cm Equipment: Bard PowerGlide ST Midline Catheter Catheter Type: 20 guage 8 cm NON-PASV Midline Lot #: [id number]
== END ==
LOC: HO.SSS 11:16
PROVIDERS: PCP Student in an Organized Health Care Education/Training Program; Visit Provider Internal Medicine Pulmonary Disease
DX: J15.1 Pneumonia due to Pseudomonas (principal)
CPT/HCPCS: 36410; 36573; C1751; J1335

== ENCOUNTER 2023-08-07 11:24 | Outpatient (REF) | payer OTHER, SELFPAY | END 2023-08-07 11:25 | disposition home or self-care (01) | LOC: HO.MDS 11:24 | PROVIDERS: Visit Provider Internal Medicine Pulmonary Disease | DX: J15.1 Pneumonia due to Pseudomonas (principal) | CPT/HCPCS: 96365; J1335 ==

== ENCOUNTER 2023-08-11 12:39 | Outpatient (REF) | payer OTHER, SELFPAY | END 2023-08-11 12:40 | disposition home or self-care (01) | LOC: HO.MDS 12:39 | PROVIDERS: Visit Provider Internal Medicine Pulmonary Disease | DX: J15.1 Pneumonia due to Pseudomonas (principal) | CPT/HCPCS: 96365; J1335 ==

== ENCOUNTER 2023-08-12 07:32 | Outpatient (REF) | payer OTHER, SELFPAY | END 2023-08-12 07:33 | disposition home or self-care (01) | LOC: HO.MDS 07:32 | PROVIDERS: Visit Provider Internal Medicine Pulmonary Disease | DX: J15.1 Pneumonia due to Pseudomonas (principal) | CPT/HCPCS: 96365; J1335 ==

== ENCOUNTER 2023-08-13 14:22 | Outpatient (REF) | payer OTHER, SELFPAY | END 2023-08-13 14:23 | disposition home or self-care (01) | LOC: HO.MDS 14:22 | PROVIDERS: Visit Provider Internal Medicine Pulmonary Disease | DX: J15.1 Pneumonia due to Pseudomonas (principal) | CPT/HCPCS: 96365; J1335 ==

== ENCOUNTER 2023-08-14 11:58 | Outpatient (REF) | payer OTHER, SELFPAY | END 2023-08-14 11:59 | disposition home or self-care (01) | LOC: HO.MDS 11:58 | PROVIDERS: Visit Provider Internal Medicine Pulmonary Disease | DX: J15.1 Pneumonia due to Pseudomonas (principal) | CPT/HCPCS: 96365; J1335 ==

== ENCOUNTER 2023-08-15 10:56 | Outpatient (REF) | payer OTHER, SELFPAY | END 2023-08-15 10:57 | disposition home or self-care (01) | LOC: HO.MDS 10:56 | PROVIDERS: Visit Provider Internal Medicine Pulmonary Disease | DX: J15.1 Pneumonia due to Pseudomonas (principal) | CPT/HCPCS: 96365; J1335 ==

== ENCOUNTER 2023-08-16 10:07 | Outpatient (REF) | payer OTHER, SELFPAY | END 2023-08-16 10:08 | disposition home or self-care (01) | LOC: HO.MDS 10:07 | PROVIDERS: Visit Provider Internal Medicine Pulmonary Disease | DX: J15.1 Pneumonia due to Pseudomonas (principal) | CPT/HCPCS: 96365; J1335 ==

== ENCOUNTER 2023-08-17 09:59 | Outpatient (REF) | payer OTHER, SELFPAY | END 2023-08-17 10:00 | disposition home or self-care (01) | LOC: HO.MDS 09:59 | PROVIDERS: Visit Provider Internal Medicine Pulmonary Disease | DX: J15.1 Pneumonia due to Pseudomonas (principal) | CPT/HCPCS: 96365; J1335 ==

== ENCOUNTER 2023-08-18 13:07 | Outpatient (REF) | payer OTHER, SELFPAY | END 2023-08-18 13:08 | disposition home or self-care (01) | LOC: HO.MDS 13:07 | PROVIDERS: Visit Provider Internal Medicine Pulmonary Disease | DX: J15.1 Pneumonia due to Pseudomonas (principal) | CPT/HCPCS: 96365; J1335 ==

== ENCOUNTER 2023-08-18 14:09 | Outpatient (AMB) | payer OTHER, SELFPAY ==
--- NOTE | 2023-08-18 14:10 | A.OFFVIS_ITS ---
Intake Vital Signs 08/18/23 14:11 Height 6 ft 2 in Weight 220 lb 7.396 oz BMI 28.3 BP 102/66 Blood Pressure Location Lt brachial Position Sitting Pulse 84 Pulse Source Doppler Pulse Oximetry (%) 92 Oxygen Delivery Method Room Air Intake Visit Reasons: COPD Allergies No Known Allergies Allergy (Verified 08/18/23 14:19) HPI COPD HPI Details 58-year-old gentleman, active 40+ pack-y ear smoker, followed for moderate asthma/ COPD overlap syndrome and cough.Patient has been hospitalized at [facility] for bilateral pleural effusions with unclear etiology. His rheumatologic, cardiac, and pulmonary workup was negative. He cannot afford Stiolto or Anoro and has been using duo nebs. Continues to complain of dyspnea with intermittent bouts of bronchitic symptoms med that respond poorly to courses of antibiotics and prednisone. He has been tried on diuretic with no significant changes in his symptoms. He only derives symptomatic benefit from using duo nebs, however it only lasts for several hours between treatments. Patient has been evaluated by Cardiology and now undergoes further testing. He also has had two right-sided thoracentesis, initially with drainage of approximately 900 cc of simple fluid with improvement in his dyspnea. Then patient had COVID requiring brief hospitalization at [facility], after which he developed cough with worsening phlegm and he had a 2nd right- sided thoracentesis, at this time with drainage of only 10 cc of chronic transudative with negative cultures. His sputum cultures have been growing Pseudomonas. After the last office visit he developed another exacerbation requiring placement of a PICC and he has now completed 11/14 days of ertapenem with improvement in his cough. However, he does complain of significant dyspnea on exertion and orthopnea together with lower extremity edema and abdominal swelling/fluid wave. [facility] Medical History (Updated 08/18/23 @ 14:36 by Luis M Long MD) PICC (peripherally inserted central catheter) in place Fatigue Splenomegaly ETOH abuse Anemia with low platelet count Pulmonary nodules COPD (chronic obstructive pulmonary disease) Surgical History (Updated 07/21/23 @ 09:08 by Amber Pal) History of thoracentesis Hx of repair of right rotator cuff History of colonoscopy History of liver biopsy Family History Father Stroke Mother Cancer Social History (Reviewed 08/18/23 @ 14:20 by Lilly Gillis [facility]) Patient Tobacco Use Status: Former Tobacco user Quit Date: one year ago Cigarettes Per Day: 10 Years Smoked: 35 yrs Current occupational status: employed 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 Review of Systems Const Denies daytime sleepiness, Denies excessive sweating, Denies fatigue, Denies fever(s), Denies lethargy, Denies malaise, Denies night sweats, Denies snoring and Denies weight loss Eyes Denies blurry vision and Denies itchy eyes ENT Denies nasal congestion, Denies post nasal drip, Denies sinus pain, Denies sinus pressure and Denies other ( Thrush) Card Denies chest pain, Reports pedal edema, Denies dyspnea, Reports dyspnea on exertion, Reports orthopnea and Denies paroxysmal nocturnal dyspnea Resp Reports cough, Denies hemoptysis, Reports excessive phlegm production, Denies dyspnea, Reports dyspnea on exertion, Denies snoring and Denies wheezing GI Denies abdominal pain, Denies heartburn and Reports other (fluid wave feeling) Musc Denies myalgias, Denies arthralgias and Denies joint swelling Skin/Breast Denies rash Neuro Denies memory loss and Denies seizure-like activity Psych Denies abnormal sleep pattern, Denies anxiety and Denies memory loss Endo Denies excessive sweating, Denies fatigue and Denies heat intolerance Rohit/Lymph Denies easy bruising Aller/Immun Denies itchy eyes, Denies seasonal rhinorrhea and Denies wheezing Physical Exam Vital Signs: Last Vital Signs Pulse 84 08/18/23 14:11 BP 102/66 08/18/23 14:11 Pulse Ox 92 08/18/23 14:11 Oxygen Delivery Method Room Air 08/18/23 14:11 BMI result Body Mass Index 28.3 Const General: no acute distress and alert Nutritional Appearance: not obese Orientation/consciousness: Other orientation findings ( oriented) HEENT Head: Yes atraumatic Eyes General: appearance normal, both eyes and all related structures Sclerae: sclerae normal EOM: EOMs intact bilaterally Neck Neck: Yes supple Lymphatic: no lymphadenopathy noted Resp Effort & Inspection: normal respiratory effort and no use of accessory muscles Auscultation: crackles ( bibasilar) Cardio Rate: regular rate Rhythm: regular rhythm Heart sounds: no gallops, no murmurs and no rubs Skin General skin exam: other ( warm) Extrem General: No clubbing, No cyanosis and Yes edema ( 2+ bilateral) Assessment & Plan Assessment & Plan (1) Abdominal ascites: Code(s): R18.8 - Other ascites Plan: Will obtain liver ultrasound for further evaluation. (2) Chronic cough: Code(s): R05.3 - Chronic cough Plan: Improving on Ertapenem to finish 14 days (3) Pseudomonas pneumonia: Code(s): J15.1 - Pneumonia due to Pseudomonas Plan: Improving on Ertapenem to finish 14 days (4) COPD (chronic obstructive pulmonary disease): Code(s): J44.9 - Chronic obstructive pulmonary disease, unspecified Plan: Continue baseline regimen of duo nebs and Advair. Orders: Orders XR chest 2V Today R05.3 - Chronic cough US abdomen comp w elastography Today R18.8 - Other ascites Medications: Changed From furosemide 20 mg PO QAM 14 tabs 0RF To furosemide 40 mg PO QAM 10 tabs 0RF 10 days Coding Level of Care Code Est Pt Level 4 (96800) Diagnoses Abdominal ascites R18.8 Chronic cough R05.3 Pseudomonas pneumonia J15.1 COPD (chronic obstructive pulmonary disease) J44.9
[2023-08-18 14:11] VITALS: BP 102/66; PULSE 84; O2SAT 92; BMI 28.3
== END 2023-08-18 14:36 | disposition home or self-care (01) ==
PROVIDERS: PCP Internal Medicine; Visit Provider Internal Medicine Pulmonary Disease
DX: R18.8 Other ascites (principal); R05.3 Chronic cough; J15.1 Pneumonia due to Pseudomonas; J44.9 Chronic obstructive pulmonary disease, unspecified
CPT/HCPCS: 99214

== ENCOUNTER 2023-08-18 14:38 | Outpatient (REF) | payer OTHER, SELFPAY | END 2023-08-18 14:39 | disposition home or self-care (01) | LOC: HO.XRAY 14:38 | PROVIDERS: Visit Provider Internal Medicine Pulmonary Disease | DX: R05.3 Chronic cough (principal) | CPT/HCPCS: 71046 ==

== ENCOUNTER 2023-08-19 14:44 | Outpatient (REF) | payer OTHER, SELFPAY | END 2023-08-19 14:45 | disposition home or self-care (01) | LOC: HO.MDS 14:44 | PROVIDERS: Visit Provider Internal Medicine Pulmonary Disease | DX: J15.1 Pneumonia due to Pseudomonas (principal) | CPT/HCPCS: 96365; J1335 ==

== ENCOUNTER 2023-08-20 14:49 | Outpatient (REF) | payer OTHER, SELFPAY | END 2023-08-20 14:50 | disposition home or self-care (01) | LOC: HO.MDS 14:49 | PROVIDERS: Visit Provider Internal Medicine Pulmonary Disease | DX: J15.1 Pneumonia due to Pseudomonas (principal) | CPT/HCPCS: 96365; J1335 ==

== ENCOUNTER 2023-08-21 13:41 | Outpatient (REF) | payer OTHER, SELFPAY ==
--- NOTE | 2023-08-21 15:14 | HO.REMOVAL ---
Removal of PICC/Midline Removal of PICC/Midline: Removal of PICC/Midline: 1. Date: 08/21/2020 2. Reason removed: No longer needed 3. Inserted length: 8CM X 20G 4. Removed length: 8CM X20G 5. A dressing was placed over the site upon removal. No edema or bleeding at the site.
== END 2023-08-21 13:42 | disposition home or self-care (01) ==
LOC: HO.MDS 13:41
PROVIDERS: Visit Provider Internal Medicine Pulmonary Disease
DX: J15.1 Pneumonia due to Pseudomonas (principal)
CPT/HCPCS: 96365; J1335

== ENCOUNTER 2023-08-24 09:27 | Outpatient (REF) | payer OTHER, SELFPAY ==
[2023-08-24 10:24] LABS: MANUAL DIFF FLAG NO
[2023-08-24 10:36] LABS: Basophils Percent Auto 0.4 % (0-2); Eosinophils Absolute Auto 0.1 X10*3/uL (0.0-0.4); Eosinophils Percent Auto 1.1 % (0-4); Hematocrit 44.6 % (42.0-52.0); Imm Gran Abs Auto 0.02 X10*3/uL (0.00-0.03); Imm Gran Pct Auto 0.4 % (0.0-0.4); Lymphocytes Percent Auto 21.3 % (20-40); Mean Corpuscular HGB Conc 31.4 g/dl (31.0-36.0); Mean Corpuscular Hemoglobin 30.3 pg (27.0-33.0); Mean Corpuscular Volume 96.5 fL (80.0-98.0); Mean Platelet Volume 10.6 fL (9.4-12.4); Monocytes Absolute Auto 0.3 X10*3/uL (0.1-1.2); Monocytes Percent Auto 6.7 % (2-11); Neutrophils Absolute Auto 3.3 x10*3/uL (2.0-8.3); Neutrophils Percent Auto 70.1 % (45-73); Platelet Count 206 X10*3/uL (160-400); Red Blood Count 4.62 X10*6/uL (4.60-5.80); Red Cell Distribution Width 13.6 % (11.0-16.0); White Blood Count 4.8 X10*3/uL (4.8-10.8)
[2023-08-24 11:22] LABS: Alanine Aminotransferase 28 U/L (0-40); Albumin Level 3.8 g/dL (3.5-5.0); Alkaline Phosphatase 62 U/L (39-117); Anion Gap 10 (12-20); Aspartate Amino Transferase 22 U/L (5-37); Bilirubin Direct 0.3 mg/dL (0.0-0.5); Bilirubin Total 1.2 mg/dL (0.0-1.0); Blood Urea Nitrogen 19 mg/dL (9-16); Calcium 9.3 mg/dL (8.4-10.2); Carbon Dioxide 29 mmol/L (22-29); Chloride 104 mmol/L (96-108); Cholesterol 204 mg/dL (<200); Estimated Glomerular Filt Rate > 60; Glucose Random 97 mg/dL (60-115); HDL Cholesterol 50 mg/dL (>40); LDL Cholesterol Calculated 137 mg/dL (<100); Potassium 4.1 mmol/L (3.3-5.1); Sodium 139 mmol/L (135-145); Total Protein 6.5 g/dL (6.5-8.0); Triglycerides 88 mg/dL (<150)
== END 2023-08-24 09:28 | disposition home or self-care (01) ==
LOC: HO.LAB 09:27
PROVIDERS: PCP Internal Medicine; Visit Provider Internal Medicine
DX: Z12.5 Encounter for screening for malignant neoplasm of prostate (principal); K59.1 Functional diarrhea; R68.89 Other general symptoms and signs; R16.1 Splenomegaly, not elsewhere classified; R35.1 Nocturia
CPT/HCPCS: 36415; 80048; 80061; 80076; 84153; 84443; 85025; 87493

== ENCOUNTER 2023-08-24 09:41 | Outpatient (AMB) | payer OTHER, SELFPAY ==
--- NOTE | 2023-08-24 07:36 | MHC.OFFVIS ---
Intake Vital Signs 08/24/23 09:42 Height 6 ft 2 in Weight 220 lb BMI 28.2 Intake Visit Reasons: PO LT shld RTC repair 07/15/23NE Intake Note: Mara is a 63 year old right hand dominant female who presents today for a post op appointment s/p right shoulder RTC repair 07/22/23 NE. Patient reports some stiffness in his Left hand also reports discomfort in the shoulder after Physical therapy and at bed time. Allergies No Known Allergies Allergy (Verified 08/24/23 09:49) HPI PO LT shld RTC repair 07/15/23NE HPI Details 6 weeks s/p L RTC repair. He is doing well, is concerned about his left hand feeling stiff. He is seen today wearing his sling. He has been attending PT and says this is going well, but he has some increased discomfort after sessions. [facility] Medical History PICC (peripherally inserted central catheter) in place Fatigue Splenomegaly ETOH abuse Anemia with low platelet count Pulmonary nodules COPD (chronic obstructive pulmonary disease) Surgical History Status post left rotator cuff repair (07/15/23) History of thoracentesis Hx of repair of right rotator cuff (10/25/20) History of colonoscopy History of liver biopsy Family History Father Stroke Mother Cancer Social History Patient Tobacco Use Status: Former Tobacco user Quit Date: one year ago Cigarettes Per Day: 10 Years Smoked: 35 yrs Current occupational status: employed 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 Review of Systems Const All systems reviewed & are unremarkable except as noted in HPI and below Physical Exam Vital Signs: BMI result Body Mass Index 28.2 Const General: no acute distress, alert and awake Orientation/consciousness: patient oriented x3 HEENT Head: Yes normocephalic and Yes atraumatic Eyes EOM: EOMs intact bilaterally Resp Effort & Inspection: normal respiratory effort and able to speak in complete sentences Cardio Jugular venous distension: no JVD Skin General skin exam: turgor normal Rashes: no rashes Neuro General: patient oriented x3 Extrem Other: 20/60 pain with passive motion Psych Appearance: grossly normal Affect: normal affect Attitude: cooperative Assessment & Plan Assessment & Plan (1) Status post left rotator cuff repair: Onset Date: 07/15/23 Comment: 07/15/2023 NE Code(s): Z98.890 - Other specified postprocedural states Plan: PT d/c sling no lifting or active abduction f/u 6 weeks Plan Scribed for Giacomo Borden MD by Jair Lala, medical records field technician, on 08/24/23 at 9:52 AM, EST. Coding Level of Care Code Est Pt Level 3 (96808) Diagnoses Status post left rotator cuff repair Z98.890
[2023-08-24 09:42] VITALS: BMI 28.2
== END 2023-08-24 10:11 | disposition home or self-care (01) ==
PROVIDERS: PCP Internal Medicine; Visit Provider Orthopaedic Surgery
DX: M75.102 Unspecified rotator cuff tear or rupture of left shoulder, not specified as traumatic (principal)
CPT/HCPCS: 99024

== ENCOUNTER 2023-09-03 10:43 | Outpatient (AMB) | payer OTHER, SELFPAY ==
[2023-09-03 10:47] VITALS: BP 112/62; PULSE 98; O2SAT 92; BMI 27.9
--- NOTE | 2023-09-03 10:47 | A.OFFVIS_ITS ---
Intake Vital Signs 09/03/23 10:47 Height 6 ft 2 in Weight 217 lb 2.485 oz BMI 27.9 BP 112/62 Blood Pressure Location Rt brachial Position Sitting Pulse 98 Pulse Source Doppler Pulse Oximetry (%) 92 Intake Visit Reasons: pseudomonas pneumonia Allergies No Known Allergies Allergy (Verified 09/03/23 10:53) HPI pseudomonas pneumonia HPI Details 58-year-old gentleman, active 40+ pack-y ear smoker, followed for moderate asthma/ COPD overlap syndrome and cough.Patient has been hospitalized at [facility] for bilateral pleural effusions with unclear etiology. His rheumatologic, cardiac, and pulmonary workup was negative. He cannot afford Stiolto or Anoro and has been using duo nebs. Continues to complain of dyspnea with intermittent bouts of bronchitic symptoms med that respond poorly to courses of antibiotics and prednisone. He has been tried on diuretic with no significant changes in his symptoms. He only derives symptomatic benefit from using duo nebs, however it only lasts for several hours between treatments. Patient has been evaluated by Cardiology and now undergoes further testing. He also has had two right-sided thoracentesis, initially with drainage of approximately 900 cc of simple fluid with improvement in his dyspnea. Then patient had COVID requiring brief hospitalization at [facility], after which he developed cough with worsening phlegm and he had a 2nd right- sided thoracentesis, at this time with drainage of only 10 cc of chronic transudative with negative cultures. His sputum cultures have been growing Pseudomonas. After the last office visit he was treated with a 10 day course of furosemide with only moderate improvement in lower extremity edema and orthopnea. His chest x-ray demonstrated worsening bilateral zrknc-[id number]-ihxu-left pleural effusions. FOR[facility] Medical History PICC (peripherally inserted central catheter) in place Fatigue Splenomegaly ETOH abuse Anemia with low platelet count Pulmonary nodules COPD (chronic obstructive pulmonary disease) Surgical History Status post left rotator cuff repair (07/15/23) History of thoracentesis Hx of repair of right rotator cuff (10/25/20) History of colonoscopy History of liver biopsy Family History Father Stroke Mother Cancer Social History Patient Tobacco Use Status: Former Tobacco user Quit Date: one year ago Cigarettes Per Day: 10 Years Smoked: 35 yrs Current occupational status: employed 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 Review of Systems Const Denies daytime sleepiness, Denies excessive sweating, Denies fatigue, Denies fever(s), Denies lethargy, Denies malaise, Denies night sweats, Denies snoring and Denies weight loss Eyes Denies blurry vision and Denies itchy eyes ENT Denies nasal congestion, Denies post nasal drip, Denies sinus pain, Denies sinus pressure and Denies other ( Thrush) Card Denies chest pain, Reports pedal edema, Denies dyspnea, Reports dyspnea on exertion, Reports orthopnea and Reports paroxysmal nocturnal dyspnea Resp Denies cough, Denies hemoptysis, Denies excessive phlegm production, Denies dyspnea, Reports dyspnea on exertion, Denies snoring and Denies wheezing GI Denies abdominal pain and Denies heartburn Musc Denies myalgias, Denies arthralgias and Denies joint swelling Skin/Breast Denies rash Neuro Denies memory loss and Denies seizure-like activity Psych Denies abnormal sleep pattern, Denies anxiety and Denies memory loss Endo Denies excessive sweating, Denies fatigue and Denies heat intolerance Rohit/Lymph Denies easy bruising Aller/Immun Denies itchy eyes, Denies seasonal rhinorrhea and Denies wheezing Physical Exam Vital Signs: Last Vital Signs Pulse 98 09/03/23 10:47 BP 112/62 09/03/23 10:47 Pulse Ox 92 09/03/23 10:47 BMI result Body Mass Index 27.9 Const General: no acute distress and alert Nutritional Appearance: not obese Orientation/consciousness: Other orientation findings ( oriented) HEENT Head: Yes atraumatic Eyes General: appearance normal, both eyes and all related structures Sclerae: sclerae normal EOM: EOMs intact bilaterally Neck Neck: Yes supple Lymphatic: no lymphadenopathy noted Resp Effort & Inspection: normal respiratory effort and no use of accessory muscles Auscultation: crackles (Bilateral) Cardio Rate: regular rate Rhythm: regular rhythm Heart sounds: no gallops, no murmurs and no rubs Skin General skin exam: other ( warm) Extrem General: No clubbing, No cyanosis and Yes edema (1+ bilateral) Assessment & Plan Assessment & Plan (1) Abdominal ascites: Code(s): R18.8 - Other ascites Plan: Abdominal ultrasound is pending. (2) Pleural effusion: Code(s): J90 - Pleural effusion, not elsewhere classified Plan: Recurrent bilateral pleural effusions, right greater than left. Will obtain right thoracentesis. (3) COPD (chronic obstructive pulmonary disease): Code(s): J44.9 - Chronic obstructive pulmonary disease, unspecified Plan: Continue baseline regimen of Advair and duo nebs. Orders: Orders US drain thoracentesis Today J90 - Pleural effusion, not elsewhere classified Medications: New bumetanide 1 mg PO DAILY 30 tabs 6RF J90 - Pleural effusion, not elsewhere classified Discontinued furosemide Discontinued Reason: Doctor's Order 40 mg PO QAM 10 tabs 0RF 10 days tobramycin separate doses by at least 6 hours Discontinued Reason: Doctor's Order 300 mg (4 mL) inhalation BID 28 days 224 mL 0RF J15.1 - Pneumonia due to Pseudomonas levofloxacin Discontinued Reason: Doctor's Order 750 mg PO DAILY 14 tabs 0RF Coding Level of Care Code Est Pt Level 4 (98495) Diagnoses Abdominal ascites R18.8 Pleural effusion J90 COPD (chronic obstructive pulmonary disease) J44.9
== END 2023-09-03 11:15 | disposition home or self-care (01) ==
PROVIDERS: PCP Internal Medicine; Visit Provider Internal Medicine Pulmonary Disease
DX: R18.8 Other ascites (principal); J90 Pleural effusion, not elsewhere classified; J44.9 Chronic obstructive pulmonary disease, unspecified
CPT/HCPCS: 99214

== ENCOUNTER → 2023-09-03 10:43 | Outpatient (BNVA) | payer OTHER, SELFPAY | PROVIDERS: PCP Internal Medicine; Visit Provider Internal Medicine Pulmonary Disease ==

== ENCOUNTER 2023-09-06 11:48 | Inpatient (IN) | payer OTHER, SELFPAY ==
--- NOTE | ~2023-09-06 | XR_ITS ---
EXAMINATION: XR CHEST CLINICAL INFORMATION: Shortness of breath COMPARISON: Multiple priors. Most recent exam Chest x-ray August 18, 2023 TECHNIQUE: 2 views of the chest were obtained. FINDINGS: Persistent small to moderate volume bilateral pleural effusions right larger in volume than left. This is not substantially changed since chest x-ray August 18, 2023. Diffuse increased lung markings similar prior study. This is most likely due to pulmonary vascular congestion. No overt pulmonary edema. XR/XR chest 2V IMPRESSION: 1. Persistent small to moderate volume bilateral pleural effusions right larger in volume than left. 2. Persistent pulmonary vascular congestion.
--- NOTE | ~2023-09-06 | XR_ITS ---
EXAMINATION: XR CHEST CLINICAL INFORMATION: Reason for Exam s/p right chest tube for pleural effusion COMPARISON: Chest radiograph 09/06/2023 TECHNIQUE: One view of the chest FINDINGS: Lines and tubes: Interval placement of a right basilar pigtail pleural catheter. Interval increase in the left humeral head. Interval decrease in now trace right pleural effusion. Similar blunting of the left costophrenic angle which may reflect pleural parenchymal thickening. Interval improvement in right basilar airspace opacities which may reflect improving atelectasis. Slightly increased patchy left basilar airspace opacities which may reflect worsening infection or aspiration. No pneumothorax. Unchanged cardiomediastinal silhouette. XR/XR chest 1V IMPRESSION: 1. Interval placement of a right basilar pigtail pleural catheter. Interval decrease in now trace right pleural effusion. No pneumothorax. 2. Slightly increased patchy left basilar airspace opacities which may reflect worsening infection or aspiration. 3. Interval improvement in right basilar airspace opacities which may reflect improving atelectasis.
--- NOTE | ~2023-09-06 | CT_ITS ---
EXAMINATION: CT CHEST WITHOUT CONTRAST CLINICAL INFORMATION: 58-year-old male with hypoxia COMPARISON: 01/27/2022 TECHNIQUE: Multidetector volumetric CT imaging of the chest was done. Axial MIP volume rendering provided. Sagittal and coronal reformatted images were obtained. This CT examination was performed using dose optimization techniques as appropriate, variously including the following: *Automated exposure control *Adjustment of mA and/or kV according to patient size (this includes techniques or standardized protocols for targeted exams where dose is matched to indication/reason for exam; i.e. 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 There is mild peribronchial thickening more prominent in the lower lobes. There is left upper lobe 0.4 cm nodule seen on image 215 series 10. Tree in bud appearance micronodules are seen bibasilar in the lower lobes, inseparable from small pleural effusion on the right and compressive right lower lobe atelectasis with air bronchogram. MEDIASTINUM: Thyroid gland is unremarkable. There are no evidence of mediastinal or hilar lymphadenopathy with a few shotty mediastinal lymph nodes present, the largest measured 1.8 x 0.8 cm. Thoracic aorta is ectatic measured 4.2 cm. CORONARY ARTERY CALCIFICATION: Mild the there is trace of pericardial effusion. Present AXILLA: No lymphadenopathy. UPPER ABDOMEN: There is mild ascites surrounding the enlarged spleen and trace of ascites and the lower the liver. OSSEOUS STRUCTURES: Unremarkable. CT/CT chest wo IV con IMPRESSION: 1. Mild changes of centrilobular emphysema and peribronchial thickening. 2. Small right pleural effusion and compressive atelectasis in the right lower lobe. 3. 0.4 cm nodule in the left upper lobe. 4. Mild ascites. 5. Splenomegaly. 6. Trace of pericardial effusion. Fleischner guidelines were followed.
--- NOTE | ~2023-09-06 | XR_ITS ---
EXAMINATION: XR CHEST CLINICAL INFORMATION: Right chest tube clamped. Evaluate for pneumothorax. COMPARISON: Chest radiograph and chest CT yesterday TECHNIQUE: Frontal view of the chest was obtained. FINDINGS: No pneumothorax is seen. A small caliber right-sided chest tube is present just above the diaphragm. Bibasilar atelectasis is seen, left greater than right. Heart size normal. No evidence of CHF. XR/XR chest 1V IMPRESSION: No pneumothorax. Bibasilar atelectasis.
--- NOTE | ~2023-09-06 | US_ITS ---
PROCEDURE: Ultrasound-guided chest tube placement HISTORY: Right pleural effusion. Fever SPECIMEN: A specimen was appropriately labeled and sent to the laboratory as requested ACCESS: 5 fr Yueh needle/catheter MEDICATIONS: 10 mL 1% lidocaine TECHNIQUE/FINDINGS Appropriate preprocedural clinical history and imaging studies were reviewed. The patient was brought to the department and placed in the seated position. Ultrasound images of the right thorax were obtained to localize a moderate pleural effusion. Permanent ultrasound images were saved. The risks and benefits and possible complications were discussed with the patient and consent form was signed. An area of the patient's right back was prepped and draped in the usual sterile fashion. 10 mL of 1% lidocaine was used to obtain local anesthesia of the skin and deeper tissues. A 5 gauge hypodermic needle was introduced to sample pleural fluid and demonstrate a safe access route. A 5 Faroese Yueh catheter was then used to access the pleural cavity. A 0.035 guidewire was then placed through the catheter and into the chest. The access site was then dilated. A 10 fr locking catheter was then advanced over the wire and into the chest cavity. The wire was removed and the catheter was secured to the skin with a single suture and a sterile dressing was applied over the site. The catheter was then connected to a close chest drainage system. A sample of fluid was sent for analysis. The patient tolerated the procedure well. There were no immediate complications US/US drain thoracentesis IMPRESSION: Ultrasound-guided right chest tube placement yielding yellow fluid. This procedures performed by Dimas Miranda PA-C and supervised by Dr. Craven.
--- NOTE | ~2023-09-06 | CT_ITS ---
EXAMINATION: CT CHEST WITHOUT CONTRAST CLINICAL INFORMATION: Airleak, status post chest tube for pleural effusion COMPARISON: Same day chest radiograph, 09/06/[address] TECHNIQUE: Multidetector volumetric CT imaging of the chest was done. Axial MIP volume rendering provided. Sagittal and coronal reformatted images were obtained. This CT examination was performed using dose optimization techniques as appropriate, variously including the following: *Automated exposure control *Adjustment of mA and/or kV according to patient size (this includes techniques or standardized protocols for targeted exams where dose is matched to indication/reason for exam; i.e. 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 LUNGS: Trachea and bronchi are patent with diffuse bronchial wall thickening. Centrilobular emphysema. Bilateral scattered increased interstitial markings with lower lobe predominance, left greater than right. Linear right lower lobe opacity with air bronchograms. Scattered and dependent atelectasis left lower lobe. 3 mm ERIC nodule, 8:34. 3 mm ERIC nodule adjacent to the mediastinum, 8:53. MEDIASTINUM: Unremarkable thyroid. Diffuse mild esophageal thickening. Nonspecific mediastinal lymph nodes, largest pretracheal lymph node with short axis of 9 mm. Heart size upper limits of normal. Small pericardial effusion. Thoracic aorta with mild atherosclerotic calcifications continues to measure 4.2 cm. Nonenlarged pulmonary arteries. CORONARY ARTERY CALCIFICATION: Mild PLEURA: A small bore pigtail catheter is identified with internal pigtail at the medial right lung base. No residual pleural fluid. A small amount of adjacent posterior chest wall subcutaneous emphysema remains present. Bullous changes identified right apex. Tiny residual right medial apical pneumothorax questioned on coronal . Tiny left pleural effusion. AXILLA: Nonspecific axillary lymph nodes. UPPER ABDOMEN: Small amount of fluid around the liver and spleen. Liver is not entirely included. Spleen is enlarged. OSSEOUS/ SOFT TISSUE STRUCTURES: Mild gynecomastia. Bone anchors left humeral head. No suspicious osseous lesions. CT/CT chest wo IV con IMPRESSION: Smallbore right base pleural drainage catheter with no residual pleural effusion. Small amount of adjacent right posterior chest wall subcutaneous emphysema. Tiny residual right apical pneumothorax questioned. Centrilobular emphysema, bullous changes, bilateral lower lobe atelectasis and tiny left effusion. Redemonstration splenomegaly, ascites and small pericardial effusion. Fleischner guidelines were followed.
[2023-09-06 11:58] VITALS: BP 124/80; PULSE 110; RESP 22; TEMP 36.8; O2SAT 88; BMI 27.9
--- NOTE | 2023-09-06 11:59 | ED.GENADULT ---
HPI - General Adult General Chief complaint: Dyspnea Stated complaint: Fever, cough Time Seen by Provider: 09/06/23 12:08 History of Present Illness HPI narrative: See additional note from same date, Dr. Hurtado Related Data Previous Rx's Medication Instructions Recorded albuterol sulfate 2.5 mg/3 mL 2.5 mg (3 mL) inhalation Q4-6H PRN 02/09/23 (0.083 %) solution for nebulization shortness of breath or wheezing 30 days #360 mL oxycodone-acetaminophen 5 mg-325 1 tab PO Q4-6H PRN pain #42 tabs 08/25/23 mg tablet (Percocet) bumetanide 1 mg tablet 1 mg PO DAILY #30 tabs 09/03/23 Allergies Allergy/AdvReac Type Severity Reaction Status Date / Time No Known Allergies Allergy Verified 09/06/23 12:13 [facility] Past Medical History Onset Date is defined in the Problem List Problems that require an onset date and time if occurred within 24 hrs of arrival to the ED Aortic Dissection and Rupture; Neurologic impairment; Cardiopulmonary Arrest; Endotracheal Intubation; Insertion or Replacement of Mechanical Circulatory Assist Device Medical History PICC (peripherally inserted central catheter) in place Fatigue Splenomegaly ETOH abuse Anemia with low platelet count Pulmonary nodules COPD (chronic obstructive pulmonary disease) Surgical History Status post left rotator cuff repair (07/15/23) History of thoracentesis Hx of repair of right rotator cuff (10/25/20) History of colonoscopy History of liver biopsy Family History Family History Father Stroke Mother Cancer Social History Social History Patient Tobacco Use Status: Former Tobacco user Quit Date: one year ago Cigarettes Per Day: 10 Years Smoked: 35 yrs Smoked in Last 30 Days: No Use of substances other than those prescribed or required for medical reasons: No Advance Directives: Yes Advance Directives Information Provided: Yes Advance Directives on File: No Nutrition Risks: No Nutritional Risk Current occupational status: employed 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 Patient is a 58-year-old male 40+ pack-year smoker, asthma/COPD overlap syndrome, anemia who presents emergency department for evaluation of fever 102.4 this morning, reportedly did not respond to ibuprofen, productive cough, blood tinged sputum, one episode of vomiting. Tomorrow has a thoracentesis scheduled for pleural effusion, follows Dr. Long. reports O2 saturation 85% room air, did not improve with nebulizer. Plan: labs, CXR, EKG, viral testing Medications Administered Generic Name Dose Route Start Last Admin Trade Name Freq PRN Reason Stop Dose Admin Fluticasone/Umeclidinium/Vilanterol 1 puff 09/06/23 16:45 09/06/23 18:45 Fluticasone/Umeclidinium/Vilanterol 100/62.5/25 Blst.W.Dev INHALE 1 puff RDAILY REY Administration Heparin Sodium (Porcine) 5,000 unit 09/06/23 16:15 09/06/23 17:08 Heparin Sodium,Porcine 5,000 Unit/Ml Vial SUBCUT 5,000 unit Q12H REY Administration Piperacillin Sod/Tazobactam 100 mls @ 200 mls/hr 09/06/23 18:30 09/06/23 18:45 Sod 4.5 gm/ Sodium Chloride IV 200 mls/hr Q6H REY Administration Methylprednisolone Sodium Succinate 40 mg 09/06/23 16:30 09/06/23 17:07 Methylprednisolone Sod Succ 40 Mg/Ml Vial IVPUSH 40 mg Q12H REY Administration Discontinued Medications Generic Name Dose Route Start Last Admin Trade Name Freq PRN Reason Stop Dose Admin Albuterol Sulfate 5 mg/ 0 mg 09/06/23 12:31 09/06/23 12:40 Albuterol/Ipratropium 3 ml INHALE 09/06/23 12:32 2.5 each ONCE ONE Administration Piperacillin Sod/Tazobactam 100 mls @ 200 mls/hr 09/06/23 12:17 09/06/23 12:56 Sod 4.5 gm/ Sodium Chloride IV 09/06/23 12:46 Infused ONCE ONE Infusion Methylprednisolone Sodium Succinate 125 mg 09/06/23 12:18 09/06/23 12:26 Methylprednisolone Sod Succ 125 Mg/2 Ml Vial IVPUSH 09/06/23 12:19 125 mg ONCE ONE Administration Medical Decision Making Lab Data 09/06/23 12:14 09/06/23 17:01 Labs: Lab Results 09/06/23 09/06/23 09/06/23 Range/Units 12:14 12:22 12:25 WBC 10.2 (4.8-10.8) X10*3/uL RBC 4.74 (4.60-5.80) X10*6/uL Hgb 14.4 (14.0-18.0) g/dl Hct 44.3 (42.0-52.0) % MCV 93.5 (80.0-98.0) fL MCH 30.4 (27.0-33.0) pg MCHC 32.5 (31.0-36.0) g/dl RDW 13.2 (11.0-16.0) % Plt Count 255 (160-400) X10*3/uL MPV 10.1 (9.4-12.4) fL Immature Gran % (Auto) 0.7 H (0.0-0.4) % Neut % (Auto) 86.6 H (45-73) % Lymph % (Auto) 6.5 L (20-40) % [place] % (Auto) 6.0 (2-11) % Eos % (Auto) 0.0 (0-4) % Baso % (Auto) 0.2 (0-2) % Lymph # (Auto) 0.7 L (1.2-4.9) X10*3/uL [place] # (Auto) 0.6 (0.1-1.2) X10*3/uL Eos # (Auto) 0.0 (0.0-0.4) X10*3/uL Baso # (Auto) 0.0 (0.0-0.2) X10*3/uL Abs Immat Gran (auto) 0.07 H (0.00-0.03) X10*3/uL Absolute Neuts (auto) 8.9 H (2.0-8.3) x10*3/uL Absolute Nucleated RBC 0.000 (0.0-0.012) X10*3/uL Nucleated RBC % (auto) 0.0 (0.0-0.2) /100WBC PT 13.0 (11.1-13.3) SEC INR 1.1 (0.9-1.1) VBG pH 7.54 H (7.32-7.43) VBG pCO2 30 mmHg VBG pO2 64 mmHg VBG HCO3 25 (22-26) mmol/L VBG O2 Saturation 94.0 % VBG Base Excess 4.2 mmol/L Sodium 138 (135-145) mmol/L Potassium 4.0 (3.3-5.1) mmol/L Chloride 101 (96-108) mmol/L Carbon Dioxide 24 (22-29) mmol/L Anion Gap 17 (12-20) BUN 13 (9-16) mg/dL Creatinine 0.84 (0.5-1.4) mg/dL Estim Creat Clear Calc 110.0 Estimated GFR > 60 Random Glucose 115 (60-115) mg/dL Lactic Acid 0.8 (0.5-2.0) mmol/L Calcium 9.6 (8.4-10.2) mg/dL Total Bilirubin 1.2 H (0.0-1.0) mg/dL AST 14 (5-37) U/L ALT 10 (0-40) U/L Alkaline Phosphatase 63 (39-117) U/L Troponin I High Sens < 2.7 (<3.5-35.0) ng/L B-Natriuretic Peptide 13 (<100) pg/mL Total Protein 7.0 (6.5-8.0) g/dL Albumin 4.0 (3.5-5.0) g/dL COVID-19 (JEFF) Negative (Negative) COVID-19 Clin Com See Note Influenza Type A (LEONARDA) Negative (Negative) Influenza Type B (LEONARDA) Negative (Negative) Influenza A & B Note See Note Discharge Plan Discharge Clinical Impression: Pleural effusion, Hypoxia COPD (chronic obstructive pulmonary disease) Qualifiers: COPD type: COPD with acute exacerbation Qualified Code(s): J44.1 - Chronic obstructive pulmonary disease with (acute) exacerbation Patient Disposition: Admitted As Inpatient
--- NOTE | 2023-09-06 12:02 | ECG_ITS ---
Test Reason : CHEST PAIN Blood Pressure : / mmHG Vent. Rate : 101 BPM Atrial Rate : 101 BPM P-R Int : 152 ms QRS Dur : 142 ms QT Int : 374 ms P-R-T Axes : 066 -74 035 degrees QTc Int : 484 ms Sinus tachycardia Right bundle branch block Left anterior fascicular block Bifascicular block Abnormal ECG When compared with ECG of 31-MAR-2022 15:12, No significant change was found Referred By: Martha Howell Electronically Signed By:Rafael Petty
--- NOTE | 2023-09-06 12:13 | PC.NURSE ---
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
--- NOTE | 2023-09-06 12:15 | PC.NURSE ---
a&ox4. vss and up to date aside from being nsr/sinus tachy on the monitoring tech/being tachypneic. pt presents to ED d/t sob/wheezing/productive cough/hematemesis/fever/chest pain induced w/ deep inspiration/cough. pt was 88% on RA upon ED arrival in triage - pt placed on 2L via NC to promote comfort when he was brought back to ED19. wheezing noted throughout upon auscultation. sob/wob noted. respirations even/labored. pt seemingly diaphoretic but remains afebrile. 20gIV placed in the right forearm. labs obtained/sent to lab. ED provider bedside assessing pt. pt aware of plan of care at this time. bedside for support. call glynn placed within reach.
--- NOTE | 2023-09-06 12:18 | ED.SOB ---
HPI - SOB/Dyspnea General Chief Complaint: Dyspnea Stated Complaint: Fever, cough Time Seen by Provider: 09/06/23 12:08 Source: patient and family () Mode of arrival: ambulatory Limitations: no limitations History of Present Illness HPI Narrative: This is 58 years old male with history of COPD presented to emergency room with a chief complaint of shortness of breath fever this morning. He is followed by a local supervisor force adjustment Dr. Long, he was recent the admitted to [facility] with bilateral pleural effusion of unclear etiology. The patient had in the past to right side thoracentesis and is scheduled to have another thoracentesis tomorrow at [facility]. He was seen by the supervisor force adjustment on September 03 MD elicited complaint: shortness of breath and cough Pertinent past history: COPD and asthma Onset (ago): week(s) (1) Severity: moderate Exacerbating factors: nothing Relieving factors: nothing Known history of: COPD and asthma Related Data Previous Rx's Medication Instructions Recorded albuterol sulfate 2.5 mg/3 mL 2.5 mg (3 mL) inhalation Q4-6H PRN 02/09/23 (0.083 %) solution for nebulization shortness of breath or wheezing 30 days #360 mL oxycodone-acetaminophen 5 mg-325 1 tab PO Q4-6H PRN pain #42 tabs 08/25/23 mg tablet (Percocet) bumetanide 1 mg tablet 1 mg PO DAILY #30 tabs 09/03/23 Allergies Allergy/AdvReac Type Severity Reaction Status Date / Time No Known Allergies Allergy Verified 09/06/23 12:13 Review of Systems Constitutional: Constitutional: Reports no additional constitutional complaints ENT: Reports system reviewed and no additional complaints, except as documented Respiratory: Respiratory: Reports chest congestion and Reports cough PMFSH Past Medical History Attestation statement: The following information was validated with the patient. Source: unable to obtain Onset Date is defined in the Problem List Problems that require an onset date and time if occurred within 24 hrs of arrival to the ED Aortic Dissection and Rupture; Neurologic impairment; Cardiopulmonary Arrest; Endotracheal Intubation; Insertion or Replacement of Mechanical Circulatory Assist Device Medical History PICC (peripherally inserted central catheter) in place Fatigue Splenomegaly ETOH abuse Anemia with low platelet count Pulmonary nodules COPD (chronic obstructive pulmonary disease) Surgical History Status post left rotator cuff repair (07/15/23) History of thoracentesis Hx of repair of right rotator cuff (10/25/20) History of colonoscopy History of liver biopsy Family History Family History Father Stroke Mother Cancer Social History Social History Patient Tobacco Use Status: Former Tobacco user Quit Date: one year ago Cigarettes Per Day: 10 Years Smoked: 35 yrs Smoked in Last 30 Days: No Use of substances other than those prescribed or required for medical reasons: No Advance Directives: Yes Advance Directives Information Provided: Yes Advance Directives on File: No Current occupational status: employed 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: Vital Signs: Last Vital Signs Temp 97.8 F 09/06/23 12:23 Pulse 121 H 09/06/23 14:22 Resp 16 09/06/23 14:22 BP 108/69 09/06/23 14:22 Pulse Ox 91 L 09/06/23 14:22 O2 Del Method Nasal Cannula 09/06/23 14:22 O2 Flow Rate 3 09/06/23 14:22 BMI result Body Mass Index 27.9 Const: General: cooperative Nutritional Appearance: average body habitus Orientation/consciousness: patient oriented x3 Limitations: no limitations HEENT: Head: Yes normal to inspection General nose exam: Normal external nose present Face and sinus: Yes normal facial exam Mouth: Normal oral and palatal mucosa present Throat: Yes posterior oropharynx normal Neck: Neck: Yes normal visual inspection and Yes full ROM Chest: Chest palpation & inspection: normal inspection of the chest Resp: Auscultation: rhonchi and wheezes Percussion: percussion normal Cardio: Rate: regular rate Rhythm: regular rhythm GI: Inspection: Yes normal to inspection Palpation (GI): Soft to palpation Skin: General skin exam: no rashes or lesions noted and elasticity normal Lesions: no lesions Rashes: no rashes Neuro: General: patient oriented x3 Course Reevaluation(s) Reevaluation #1: feels better Time: 15:34 Medications Administered Discontinued Medications Generic Name Dose Route Start Last Admin Trade Name Freq PRN Reason Stop Dose Admin Albuterol Sulfate 5 mg/ 0 mg 09/06/23 12:31 09/06/23 12:40 Albuterol/Ipratropium 3 ml INHALE 09/06/23 12:32 2.5 each ONCE ONE Administration Piperacillin Sod/Tazobactam 100 mls @ 200 mls/hr 09/06/23 12:17 09/06/23 12:56 Sod 4.5 gm/ Sodium Chloride IV 09/06/23 12:46 Infused ONCE ONE Infusion Methylprednisolone Sodium Succinate 125 mg 09/06/23 12:18 09/06/23 12:26 Methylprednisolone Sod Succ 125 Mg/2 Ml Vial IVPUSH 09/06/23 12:19 125 mg ONCE ONE Administration Medical Decision Making Medical Decision Making [facility] Narrative: Patient presented with shortness of breath fever congestion is tachypneic tachycardic and hypoxic he has history of COPD and right pleural effusion of unknown etiology. Will check labs chest x-ray and reassessed Differential Diagnosis Differential Diagnoses: The differential diagnosis associated with the presentation includes Right pleural effusion/pneumothorax a/asthma exacerbation/COPD exacerbation/COVID Admission/Observation Consideration of admission/observation: Escalation of care including admission/observation considered Consult Healthcare Provider Management of the patient was discussed with: Hospitalist Lab Data [facility] Lab Attestation statement: I reviewed the patient's lab results. 09/06/23 12:14 09/06/23 12:14 Labs: Lab Results 09/06/23 09/06/23 09/06/23 Range/Units 12:14 12:22 12:25 WBC 10.2 (4.8-10.8) X10*3/uL RBC 4.74 (4.60-5.80) X10*6/uL Hgb 14.4 (14.0-18.0) g/dl Hct 44.3 (42.0-52.0) % MCV 93.5 (80.0-98.0) fL MCH 30.4 (27.0-33.0) pg MCHC 32.5 (31.0-36.0) g/dl RDW 13.2 (11.0-16.0) % Plt Count 255 (160-400) X10*3/uL MPV 10.1 (9.4-12.4) fL Immature Gran % (Auto) 0.7 H (0.0-0.4) % Neut % (Auto) 86.6 H (45-73) % Lymph % (Auto) 6.5 L (20-40) % [place] % (Auto) 6.0 (2-11) % Eos % (Auto) 0.0 (0-4) % Baso % (Auto) 0.2 (0-2) % Lymph # (Auto) 0.7 L (1.2-4.9) X10*3/uL [place] # (Auto) 0.6 (0.1-1.2) X10*3/uL Eos # (Auto) 0.0 (0.0-0.4) X10*3/uL Baso # (Auto) 0.0 (0.0-0.2) X10*3/uL Abs Immat Gran (auto) 0.07 H (0.00-0.03) X10*3/uL Absolute Neuts (auto) 8.9 H (2.0-8.3) x10*3/uL Absolute Nucleated RBC 0.000 (0.0-0.012) X10*3/uL Nucleated RBC % (auto) 0.0 (0.0-0.2) /100WBC PT 13.0 (11.1-13.3) SEC INR 1.1 (0.9-1.1) VBG pH 7.54 H (7.32-7.43) VBG pCO2 30 mmHg VBG pO2 64 mmHg VBG HCO3 25 (22-26) mmol/L VBG O2 Saturation 94.0 % VBG Base Excess 4.2 mmol/L Sodium 138 (135-145) mmol/L Potassium 4.0 (3.3-5.1) mmol/L Chloride 101 (96-108) mmol/L Carbon Dioxide 24 (22-29) mmol/L Anion Gap 17 (12-20) BUN 13 (9-16) mg/dL Creatinine 0.84 (0.5-1.4) mg/dL Estim Creat Clear Calc 110.0 Estimated GFR > 60 Random Glucose 115 (60-115) mg/dL Lactic Acid 0.8 (0.5-2.0) mmol/L Calcium 9.6 (8.4-10.2) mg/dL Total Bilirubin 1.2 H (0.0-1.0) mg/dL AST 14 (5-37) U/L ALT 10 (0-40) U/L Alkaline Phosphatase 63 (39-117) U/L Troponin I High Sens < 2.7 (<3.5-35.0) ng/L B-Natriuretic Peptide 13 (<100) pg/mL Total Protein 7.0 (6.5-8.0) g/dL Albumin 4.0 (3.5-5.0) g/dL COVID-19 (JEFF) Negative (Negative) COVID-19 Clin Com See Note Influenza Type A (LEONARDA) Negative (Negative) Influenza Type B (LEONARDA) Negative (Negative) Influenza A & B Note See Note Independent Interpretation I performed an independent interpretation of an: EKG and Plain X-Ray Interpretation: Electrocardiogram shows sinus tachycardia rate is 1 1 he has a right bundle branch block I personally reviewed the chest x-ray consistent with pleural effusion/COPD Radiology Impression Discussion of test interpretation with radiology: I have reviewed the radiologist's reading. Radiologist Impression: Shortness of breath COMPARISON: Multiple priors. Most recent exam Chest x-ray August 18, 2023 TECHNIQUE: 2 views of the chest were obtained. FINDINGS: Persistent small to moderate volume bilateral pleural effusions right larger in volume than left. This is not substantially changed since chest x-ray August 18, 2023. Diffuse increased lung markings similar prior study. This is most likely due to pulmonary vascular congestion. No overt pulmonary edema. XR/XR chest 2V IMPRESSION: 1. Persistent small to moderate volume bilateral pleural effusions right larger in volume than left. 2. Persistent pulmonary vascular congestion. Dictated By: Blaine Juarez MD Signed By: <Electronically signed by Blaine Juarez MD in OV> 09/06/23 1512 Chronic Conditions Patient?s care impacted by: Other (COPD) Discharge Plan Discharge Clinical Impression: Pleural effusion, Hypoxia COPD (chronic obstructive pulmonary disease) Qualifiers: COPD type: COPD with acute exacerbation Qualified Code(s): J44.1 - Chronic obstructive pulmonary disease with (acute) exacerbation Patient Disposition: Admitted As Inpatient
[2023-09-06 12:19] LABS: MANUAL DIFF FLAG NO
[2023-09-06 12:21] LABS: Mean Corpuscular Volume 93.5 fL (80.0-98.0); PLT CLUMP 1; Red Cell Distribution Width 13.2 % (11.0-16.0); SCAN SMEAR FLAG 1
[2023-09-06 12:23] VITALS: BP 127/85; PULSE 97; RESP 20; TEMP 36.6; O2SAT 91
[2023-09-06 12:23] LABS: Basophils Percent Auto 0.2 % (0-2); Hematocrit 44.3 % (42.0-52.0); Hemoglobin 14.4 g/dl (14.0-18.0); Imm Gran Abs Auto 0.07 X10*3/uL (0.00-0.03); Imm Gran Pct Auto 0.7 % (0.0-0.4); Lymphocytes Absolute Auto 0.7 X10*3/uL (1.2-4.9); Lymphocytes Percent Auto 6.5 % (20-40); Mean Corpuscular HGB Conc 32.5 g/dl (31.0-36.0); Mean Corpuscular Hemoglobin 30.4 pg (27.0-33.0); Mean Platelet Volume 10.1 fL (9.4-12.4); Monocytes Absolute Auto 0.6 X10*3/uL (0.1-1.2); Neutrophils Absolute Auto 8.9 x10*3/uL (2.0-8.3); Neutrophils Percent Auto 86.6 % (45-73); Red Blood Count 4.74 X10*6/uL (4.60-5.80)
[2023-09-06 12:24] LABS: Platelet Count 255 X10*3/uL (160-400); White Blood Count 10.2 X10*3/uL (4.8-10.8)
[2023-09-06] MEDS: methylPREDNISolone Sod Succ 125 MG/2 ML VIAL IVPUSH (12:26)
[2023-09-06] MEDS: Piperacillin Sodium/Tazobactam 4.5 GM in 0.9 % Sodium Chloride 100 ML IV ×2 (12:26→18:45)
[2023-09-06 12:27] LABS: INTERNATIONAL NORM RATIO 1.1 (0.9-1.1)
[2023-09-06 12:31] LABS: VBG Base Excess 4.2 mmol/L; VBG HCO3 25 mmol/L (22-26); VBG pCO2 30 mmHg; VBG pH 7.54 (7.32-7.43); VBG pO2 64 mmHg
[2023-09-06 12:31] LABS: Venous Blood Gas Refer to POC result
[2023-09-06 12:37] LABS: Alanine Aminotransferase 10 U/L (0-40); Alkaline Phosphatase 63 U/L (39-117); Anion Gap 17 (12-20); Aspartate Amino Transferase 14 U/L (5-37); Bilirubin Total 1.2 mg/dL (0.0-1.0); Blood Urea Nitrogen 13 mg/dL (9-16); COVID-19 Test Negative (Negative); Calcium 9.6 mg/dL (8.4-10.2); Carbon Dioxide 24 mmol/L (22-29); Chloride 101 mmol/L (96-108); Estimated Glomerular Filt Rate > 60; Glucose Random 115 mg/dL (60-115); IDNOW Serial# 58CA691E; Sodium 138 mmol/L (135-145)
[2023-09-06 12:38] LABS: Lactic Acid 0.8 mmol/L (0.5-2.0)
[2023-09-06 12:39] LABS: IDNOW Serial# 6674DD1D; Influenza A Negative (Negative); Influenza B2 Negative (Negative)
[2023-09-06 12:40] LABS: B Type Natriuretic Peptide 13 pg/mL (<100)
[2023-09-06] MEDS: Albuterol Sulfate 5 MG, Albuterol/Iprat 2.5/0.5MG 3 ML 3 ML INHALE (12:40)
[2023-09-06 12:42] VITALS: PULSE 95; RESP 14; O2SAT 93
[2023-09-06 12:44] LABS: Troponin-I High Sensitivity < 2.7 ng/L (<3.5-35.0)
--- NOTE | 2023-09-06 12:45 | PC.NURSE ---
pt receiving breathing treatment via RT at this time.
--- NOTE | 2023-09-06 13:22 | PC.NURSE ---
pt to xray at this time.
[2023-09-06 14:22] VITALS: BP 108/69; PULSE 121; RESP 16; O2SAT 91
--- NOTE | 2023-09-06 14:23 | PC.NURSE ---
pt desatting to 88%-89% on 2L via NC - pt's O2 increased to 3L via NC. pt resting at 91% at this time. pt sitting in tripod position to promote patent airway. sob/wob still noted at this time. wheezing still noted upon auscultation. pt remains sinus tachy on the cafeteria monitor. bedside for support. call glynn placed within reach.
--- NOTE | 2023-09-06 16:04 | PHA.MEDREC ---
Pharmacy Consult ? Medication Reconciliation Pharmacy has completed the medication reconciliation. spoke with patients at bedside, knew all of his medications. She did report that he got a xolair injection on 08/20/22, but is not sure if the doctor is going to continue it for next month.
--- NOTE | 2023-09-06 16:29 | P.HPHOSP_ITS ---
History of Present Illness Date of Service: 09/06/23 Attending physician on admission: Sudhir Lorenza Chief Complaint: sob, productive cough 58 year old with history of COPD, hx etoh abuse, splenomegaly, pulmonary nodules, hx pseudomonal pneumonia with recurrent pleural effusions who is a former smoker with 40+ pack year history presents to the ED earlier today with his , who assists with romanian translation, for evaluation of fevers, sob, and productive cough ongoing several days. He has been following with Dr. Long in pulmonology and has undergone several thoracentes initially draining 900ml simple fluid and has had right sided thoracentesis with 10cc chronic transudative fluid with negative cultures at [facility] following covid 19 infection. He has also had multiple positive spumum cultures growing pneudomonas. He has been treated with furosemide with limited improvement in the effusions and echo showed only mild diastolic dysfunction. He was prescribed inh tobramycin but insurance did not cover this. He was scheduled for thoracentesis tomorrow 09/06 but unfortunately due to worsening symptoms, presented to [facility] ED. He has had increased sob, wheezing, and cough with yellow blood-tinged sputum production. Febrile to 102.6. Reports O2 sat was 85-85% at home and is not O2 depedendent at baseline. On arrival, pt hypoxic to 88%, placed on 2L supplemental O2 maintaining oximetry 92-93%, tachycardic to 121, Vitals otherwise stable. No leukocytosis. Renal function and electrolytes normal. VBG reassuring. Trop and BNP WNL. Negative COVID19, influenza. CXR shows persistent small to moderate volume b/l pleural effusions R>L, persistent pulmonary vascular congestion. In the ED, given 125mg IV methylprednisolone, duoneb, and zosyn. Review of Systems 2 Review of Systems: General: No fevers, malaise, unintentional weight loss HEENT: No blurred vision, diplopia. No sore throat, nasal congestion, rhinorrhea, sinus pain, ear pain Cardiovascular: No chest pain, palpitations, or leg edema Respiratory: +sob, +wheezing, +cough GI: +vomiting X1. No abdominal pain, nausea, diarrhea, constipation, melena, hematochezia : No dysuria, hematuria, increased urinary frequency MSK: No myalgia, back pain Neuro: No headaches, weakness, paresthesias Skin: No rashes or lesions [facility] Medical History PICC (peripherally inserted central catheter) in place Fatigue Splenomegaly ETOH abuse Anemia with low platelet count Pulmonary nodules COPD (chronic obstructive pulmonary disease) Family History Father Stroke Mother Cancer Surgical History Status post left rotator cuff repair (07/15/23) History of thoracentesis Hx of repair of right rotator cuff (10/25/20) History of colonoscopy History of liver biopsy Social History Patient Tobacco Use Status: Former Tobacco user Quit Date: one year ago Cigarettes Per Day: 10 Years Smoked: 35 yrs Smoked in Last 30 Days: No Use of substances other than those prescribed or required for medical reasons: No Advance Directives: Yes Advance Directives Information Provided: Yes Advance Directives on File: No Current occupational status: employed 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 Meds Allergies Allergy/AdvReac Type Severity Reaction Status Date / Time No Known Allergies Allergy Verified 09/06/23 12:13 Active Medications: Current Medications Acetaminophen (Acetaminophen 325 Mg Tablet) 650 mg PO Q6H PRN PRN Reason: Pain, Mild (Pain Scale 1-3) Albuterol/Ipratropium (Albuterol/Iprat 2.5/0.5mg 3 Ml Ampul.Neb) 3 ml INHALE RQ4H WHILE AWAKE REY Heparin Sodium (Porcine) (Heparin Sodium,Porcine 5,000 Unit/Ml Vial) 5,000 unit SUBCUT Q12H REY Piperacillin Sod/Tazobactam (Sod 4.5 gm/ Sodium Chloride) 100 mls @ 200 mls/hr IV Q6H REY Methylprednisolone Sodium Succinate (Methylprednisolone Sod Succ 40 Mg/Ml Vial) 40 mg IVPUSH Q12H REY Ondansetron HCl (Ondansetron Hcl 4 Mg/2 Ml Vial) 4 mg IVPUSH Q8H PRN PRN Reason: Nausea and Vomiting Senna (Sennosides 8.6 Mg Tablet) 17.2 mg PO BEDTIME PRN PRN Reason: Constipation Sodium Chloride (0.9 % Sodium Chloride Flush 3 Ml Syringe) 3 ml IVFLUSH QSHIFT [facility] Physical Exam 2 Vital Signs and Narrative: Vital Signs: Last Vital Signs Temp 97.8 F 09/06/23 12:23 Pulse 121 H 09/06/23 14:22 Resp 16 09/06/23 14:22 BP 108/69 09/06/23 14:22 Pulse Ox 91 L 09/06/23 14:22 O2 Del Method Nasal Cannula 09/06/23 14:22 O2 Flow Rate 3 09/06/23 14:22 BMI result Body Mass Index 27.9 Constitutional - Awake and Alert, No apparent distress Eyes - PERRLA, EOMI Cardiovascular - S1S2, RRR, No edema Respiratory - Normal lung expansion, Normal respiratory effort, No respiratory distress on 3L supplemental O2 92-93%, diffuse coarse expiratory wheezing with crackles lower lobes and diminished bases Gastrointestinal - NT / ND; +BS; No rebound or guarding Extremities - no calf tenderness bilaterally, no swelling Skin - Warm/Dry Neurological - Alert & oriented x3 Psychological - Appropriate affect Results Labs 09/06/23 12:14 09/06/23 12:14 Labs: Laboratory Results - last 24 hr 09/06/23 09/06/23 09/06/23 12:14 12:22 12:25 MCV 93.5 MCH 30.4 MCHC 32.5 RDW 13.2 Plt Count 255 MPV 10.1 Immature Gran % (Auto) 0.7 H Neut % (Auto) 86.6 H Lymph % (Auto) 6.5 L [place] % (Auto) 6.0 Eos % (Auto) 0.0 Baso % (Auto) 0.2 Lymph # (Auto) 0.7 L [place] # (Auto) 0.6 Eos # (Auto) 0.0 Baso # (Auto) 0.0 Abs Immat Gran (auto) 0.07 H Absolute Neuts (auto) 8.9 H Absolute Nucleated RBC 0.000 Nucleated RBC % (auto) 0.0 PT 13.0 INR 1.1 VBG pH 7.54 H VBG pCO2 30 VBG pO2 64 VBG HCO3 25 VBG O2 Saturation 94.0 VBG Base Excess 4.2 Anion Gap 17 Estim Creat Clear Calc 110.0 Estimated GFR > 60 Random Glucose 115 Lactic Acid 0.8 Calcium 9.6 Total Bilirubin 1.2 H AST 14 ALT 10 Alkaline Phosphatase 63 B-Natriuretic Peptide 13 Total Protein 7.0 Albumin 4.0 COVID-19 (JEFF) Negative COVID-19 Clin Com See Note Influenza Type A (LEONARDA) Negative Influenza Type B (LEONARDA) Negative Influenza A & B Note See Note Imaging Radiologist's Impressions: Impressions Chest X-Ray 09/06/23 13:26 IMPRESSION: 1. Persistent small to moderate volume bilateral pleural effusions right larger in volume than left. 2. Persistent pulmonary vascular congestion. Assessment and Plan (1) Hypoxia: Status: Acute (2) Pleural effusion: Status: Acute Plan 58 year old with history of COPD, hx etoh abuse, splenomegaly, pulmonary nodules, hx pseudomonal pneumonia with recurrent pleural effusions who is a former smoker with 40+ pack year history admitted for further management of COPD exacerbation and suspected pneumonia #Suspected pneumonia with sepsis -febrile to 102.6, tachycardic. Normal lactic acid. No end organ damage. No severe sepsis/shock -IV zosyn given hx pseudomonal pneumonia -sputum culture -strep pneumo ag, legionella ag pending -symptomatic management -pulmonology consult -follow cbc, cultures #COPD exacerbation due to above -IV methylprednisolone 40mg BID -duonebs q4h while awake -albuterol prn -abx as above #Acute hypoxemic respiratory failure -due to above and pleural effusions below -VBG reassuring -continue supplemental O2 to maintain oximetry 90-92% #Recurrent bilateral pleural effusions -etiology unclear. Limited Echo 03/02 with normal LV systolic fx and grade 1 diastolic dysfunction. Echo 11/06 did not show pulmonary hypertension -minimal improvement with diuretic -thoracentesis/labs/cultures ordered. NPO after midnight -pulmonology consult DVT prophylaxis- heparin Full code Pt requires inpt stay at least 2 midnights for management of acute hypoxemic respiratory failure and suspected pneumonia with recurrent bilateral pleural effusions requiring supplemental O2, therapeutic/diagnostic thoracentesis, iv abx, and expert consultation. Quality Stroke Does the patient have a stroke diagnosis?: No VTE Prior VTE?: No VTE Risk Level:: Medical - moderate - high VTE Device Contraindication: Treatment Not Indicated VTE Drug Contraindication: N/A - Med Ordered
[2023-09-06 17:04] VITALS: BP 123/75; PULSE 108; RESP 18; O2SAT 93
[2023-09-06] MEDS: methylPREDNISolone Sod Succ 40 MG/ML VIAL IVPUSH (17:07)
[2023-09-06] MEDS: Heparin Sodium,Porcine 5,000 UNIT/ML VIAL 5000 UNIT SUBCUT (17:08)
[2023-09-06 17:17] LABS: Glucose Random 268 mg/dL (60-115); Lactate Dehydrogenase 189 U/L (118-273); Total Protein 7.4 g/dL (6.5-8.0)
--- NOTE | 2023-09-06 17:20 | PC.NURSE ---
vss and up to date at this time. pt remains nsr/sinus tachy on the bus driver/monitor. pt transitioned from bed to sitting upright in chair to promote comfort. no sob/wob noted at this time. pt states that when he ambulated to the bathroom - he became sob/tired/had to take a break. pt states feeling more comfortable wearing the oxygen at this time. medication administered per provider order. respirations even and unlabored. bedside for support. call glynn placed within reach.
--- NOTE | 2023-09-06 18:34 | PC.NURSE ---
pharmacy called/notified about missing inhaler - will administer when able.
[2023-09-06] MEDS: Fluticasone/Umeclidinium/Vilanterol 100/62.5/25 BLST.W.DEV 1 PUFF INHALE (18:45)
[2023-09-06] MEDS: Albuterol/Iprat 2.5/0.5MG 3 ML AMPUL.NEB INHALE (20:14)
[2023-09-06 20:15] VITALS: PULSE 108; RESP 18; O2SAT 92
[2023-09-07] VITALS (10 sets, daily range): BP systolic 103–140; BP diastolic 63–84; PULSE 78–110; RESP 14–20; TEMP 36.1–37.1; O2SAT 90–96; BMI 27.0
[2023-09-07] MEDS: 0.9 % Sodium Chloride Flush 3 ML SYRINGE IVFLUSH ×4 (00:01→23:25)
[2023-09-07] MEDS: Piperacillin Sodium/Tazobactam 4.5 GM in 0.9 % Sodium Chloride 100 ML IV ×4 (02:07→19:22)
[2023-09-07] MEDS: methylPREDNISolone Sod Succ 40 MG/ML VIAL IVPUSH ×2 (04:35→15:45)
[2023-09-07] MEDS: Heparin Sodium,Porcine 5,000 UNIT/ML VIAL 5000 UNIT SUBCUT ×2 (04:35→15:45)
[2023-09-07 06:24] LABS: MANUAL DIFF FLAG NO
[2023-09-07 06:41] LABS: Prothrombin Time 12.5 SEC (11.1-13.3)
[2023-09-07 06:49] LABS: Basophils Percent Auto 0.2 % (0-2); Hematocrit 38.6 % (42.0-52.0); Hemoglobin 12.5 g/dl (14.0-18.0); Imm Gran Abs Auto 0.05 X10*3/uL (0.00-0.03); Imm Gran Pct Auto 0.6 % (0.0-0.4); Lymphocytes Absolute Auto 0.7 X10*3/uL (1.2-4.9); Lymphocytes Percent Auto 8.4 % (20-40); Mean Corpuscular HGB Conc 32.4 g/dl (31.0-36.0); Mean Corpuscular Hemoglobin 30.5 pg (27.0-33.0); Mean Corpuscular Volume 94.1 fL (80.0-98.0); Monocytes Absolute Auto 0.2 X10*3/uL (0.1-1.2); Monocytes Percent Auto 1.8 % (2-11); Neutrophils Absolute Auto 7.5 x10*3/uL (2.0-8.3); Platelet Count 202 X10*3/uL (160-400); Red Cell Distribution Width 13.2 % (11.0-16.0); White Blood Count 8.4 X10*3/uL (4.8-10.8)
[2023-09-07 06:55] LABS: Anion Gap 12 (12-20); Blood Urea Nitrogen 19 mg/dL (9-16); Calcium 9.4 mg/dL (8.4-10.2); Carbon Dioxide 28 mmol/L (22-29); Chloride 103 mmol/L (96-108); Creatinine Clr Calc Pharmacy 115.5; Estimated Glomerular Filt Rate > 60; Glucose Random 164 mg/dL (60-115); Potassium 3.9 mmol/L (3.3-5.1); Sodium 139 mmol/L (135-145)
[2023-09-07] MEDS: Albuterol/Iprat 2.5/0.5MG 3 ML AMPUL.NEB INHALE ×4 (07:43→19:44)
[2023-09-07] MEDS: Fluticasone/Umeclidinium/Vilanterol 100/62.5/25 BLST.W.DEV 1 PUFF INHALE (07:43)
--- NOTE | 2023-09-07 08:14 | P.PNIM_ITS ---
Subjective Subjective Date of Service: 09/07/23 Interval History: sob improved today, still with cough Review of Systems Review of Systems: Yes all other systems are reviewed and are negative Physical Exam 2 Vital Signs: Vital Signs: Last Vital Signs Temp 97.0 F 09/07/23 07:20 Pulse 89 09/07/23 07:20 Resp 18 09/07/23 07:45 BP 116/63 09/07/23 07:20 Pulse Ox 93 09/07/23 07:20 O2 Del Method Nasal Cannula 09/07/23 07:20 O2 Flow Rate 2 09/07/23 07:20 BMI result Body Mass Index 27.0 General: AO X 3, no acute distress Resp: Crackles rll, no accessory muscles used CVS: S1,S2,RRR GI: soft, non tender, non distended Neuro: motor grossly intact, alert Psych: appropriate affect, appropriate insight Objective Data Active Medications Acetaminophen (Acetaminophen 325 Mg Tablet) 650 mg PO Q6H PRN PRN Reason: Pain, Mild (Pain Scale 1-3) Albuterol Sulfate (Albuterol Sulfate (0.083%) 2.5 Mg/3 Ml Vial.Neb) 2.5 mg INHALE Q4H PRN PRN Reason: shortness of breath or wheezing Albuterol/Ipratropium (Albuterol/Iprat 2.5/0.5mg 3 Ml Ampul.Neb) 3 ml INHALE RQ4H WHILE AWAKE [facility] Last Admin: 09/07/23 07:43 Dose: 3 ml Documented By: ALONZO Bumetanide (Bumetanide 1 Mg Tablet) 1 mg PO DAILY [facility]; Protocol Last Admin: 09/07/23 07:57 Dose: Not Given Documented By: NANCI Non-Admin Reason: NPO Fluticasone/Umeclidinium/Vilanterol (Fluticasone/Umeclidinium/Vilanterol 100/62.5/25 Blst.W.Dev) 1 puff INHALE RDAILY [facility] Last Admin: 09/07/23 07:43 Dose: 1 puff Documented By: ALONZO Heparin Sodium (Porcine) (Heparin Sodium,Porcine 5,000 Unit/Ml Vial) 5,000 unit SUBCUT Q12H [facility] Last Admin: 09/07/23 04:35 Dose: 5,000 unit Documented By: SAGAR Piperacillin Sod/Tazobactam (Sod 4.5 gm/ Sodium Chloride) 100 mls @ 200 mls/hr IV Q6H [facility] Last Admin: 09/07/23 07:57 Dose: 200 mls/hr Documented By: NANCI Methylprednisolone Sodium Succinate (Methylprednisolone Sod Succ 40 Mg/Ml Vial) 40 mg IVPUSH Q12H [facility] Last Admin: 09/07/23 04:35 Dose: 40 mg Documented By: SAGAR Ondansetron HCl (Ondansetron Hcl 4 Mg/2 Ml Vial) 4 mg IVPUSH Q8H PRN PRN Reason: Nausea and Vomiting Oxycodone HCl (Oxycodone Hcl Immed Release 5 Mg Tablet) 5 mg PO Q4H PRN PRN Reason: Pain, Severe (Pain Scale 7-10) Senna (Sennosides 8.6 Mg Tablet) 17.2 mg PO BEDTIME PRN PRN Reason: Constipation Sodium Chloride (0.9 % Sodium Chloride Flush 3 Ml Syringe) 3 ml IVFLUSH QSHIFT [facility] Last Admin: 09/07/23 07:58 Dose: 3 ml Documented By: NANCI Labs 09/07/23 06:02 09/07/23 06:02 Labs: Laboratory Results - last 24 hr 09/06/23 09/06/23 09/06/23 12:14 12:22 12:25 MCV 93.5 MCH 30.4 MCHC 32.5 RDW 13.2 Plt Count 255 MPV 10.1 Immature Gran % (Auto) 0.7 H Neut % (Auto) 86.6 H Lymph % (Auto) 6.5 L [place] % (Auto) 6.0 Eos % (Auto) 0.0 Baso % (Auto) 0.2 Lymph # (Auto) 0.7 L [place] # (Auto) 0.6 Eos # (Auto) 0.0 Baso # (Auto) 0.0 Abs Immat Gran (auto) 0.07 H Absolute Neuts (auto) 8.9 H Absolute Nucleated RBC 0.000 Nucleated RBC % (auto) 0.0 PT 13.0 INR 1.1 APTT VBG pH 7.54 H VBG pCO2 30 VBG pO2 64 VBG HCO3 25 VBG O2 Saturation 94.0 VBG Base Excess 4.2 Anion Gap 17 Estim Creat Clear Calc 110.0 Estimated GFR > 60 Random Glucose 115 Lactic Acid 0.8 Calcium 9.6 Total Bilirubin 1.2 H AST 14 ALT 10 Alkaline Phosphatase 63 Lactate Dehydrogenase B-Natriuretic Peptide 13 Total Protein 7.0 Albumin 4.0 COVID-19 (JEFF) Negative COVID-19 Clin Com See Note Influenza Type A (LEONARDA) Negative Influenza Type B (LEONARDA) Negative Influenza A & B Note See Note 09/06/23 09/07/23 17:01 06:02 MCV 94.1 MCH 30.5 MCHC 32.4 RDW 13.2 Plt Count 202 MPV 11.0 Immature Gran % (Auto) 0.6 H Neut % (Auto) 89.0 H Lymph % (Auto) 8.4 L [place] % (Auto) 1.8 L Eos % (Auto) 0.0 Baso % (Auto) 0.2 Lymph # (Auto) 0.7 L [place] # (Auto) 0.2 Eos # (Auto) 0.0 Baso # (Auto) 0.0 Abs Immat Gran (auto) 0.05 H Absolute Neuts (auto) 7.5 Absolute Nucleated RBC 0.000 Nucleated RBC % (auto) 0.0 PT 12.5 INR 1.0 APTT 28.0 VBG pH VBG pCO2 VBG pO2 VBG HCO3 VBG O2 Saturation VBG Base Excess Anion Gap 12 Estim Creat Clear Calc 115.5 Estimated GFR > 60 Random Glucose 268 H 164 H Lactic Acid Calcium 9.4 Total Bilirubin AST ALT Alkaline Phosphatase Lactate Dehydrogenase 189 B-Natriuretic Peptide Total Protein 7.4 Albumin COVID-19 (JEFF) COVID-19 Clin Com Influenza Type A (LEONARDA) Influenza Type B (LEONARDA) Influenza A & B Note Assessment and Plan (1) Hypoxia: Status: Acute Plan 58M PMH etoh dependence, AFLD, copd, pseudomonal pneumonia with recurrent pleural effusions presented with sob sepsis due to pneumonia copmlicated by Right pleural effusion and acute hypoxic respiratory failure otoniel holland, plan for thoracentesis today copd with acute decompensation steroids, nebs chronic diastolic chf bumex full code dvt prophylaxis - hep sq reason for continued hospitalization:hypoxia Quality Stroke Does the patient have a stroke diagnosis?: No VTE Prior VTE?: No VTE Risk Level:: Medical - moderate - high VTE Device Contraindication: Treatment Not Indicated VTE Drug Contraindication: N/A - Med Ordered
[2023-09-07] MEDS: Lidocaine HCl 1 % MPF 5 ML VIAL 10 ML SUBCUT (09:36)
[2023-09-07] MEDS: oxyCODONE HCl Immed Release 5 MG TABLET PO ×3 (09:36→20:15)
[2023-09-07 09:40] LABS: Adenovirus PCR Not Detected (Not Detect.); Bordetella parapertussis PCR Not Detected (Not Detect.); Bordetella pertussis PCR Not Detected (Not Detect.); Chlamydia pneumoniae PCR Not Detected (Not Detect.); Coronavirus 229E PCR Not Detected (Not Detect.); Coronavirus HKU1 PCR Not Detected (Not Detect.); Coronavirus NL63 PCR Not Detected (Not Detect.); Coronavirus OC43 PCR Not Detected (Not Detect.); Human metapneumovirus PCR Not Detected (Not Detect.); Influenza A PCR Not Detected (Not Detect.); Influenza B PCR Not Detected (Not Detect.); Mycoplasma pneumoniae PCR Not Detected (Not Detect.); Parainfluenza 1 PCR Not Detected (Not Detect.); Parainfluenza 2 PCR Not Detected (Not Detect.); Parainfluenza 3 PCR Not Detected (Not Detect.); Parainfluenza 4 PCR Not Detected (Not Detect.); RSV PCR Not Detected (Not Detect.); Rhino/Enterovirus PCR Not Detected (Not Detect.)
[2023-09-07 09:41] LABS: SARS-CoV-2 PCR Not Detected (Not Detect.)
[2023-09-07 10:10] LABS: MN% 93.7 %; PMN% 6.3 %; RBC Pleural Fluid 0.003 X10*6/uL; WBC Pleural Fluid 1.463 X10*3/uL
[2023-09-07 10:15] LABS: Lactate Dehydrogenase 172 U/L (118-273); Total Protein 6.7 g/dL (6.5-8.0)
--- NOTE | 2023-09-07 10:49 | MHC.CM.PN ---
spoke with pts as pt on droplet precautions she reports pt is indepdent has no services dc plan home no services to transport
[2023-09-07 10:52] LABS: Lymphocytes Pleural Fluid 54 %; Monocytes Pleural Fluid 5 %; Neutrophils Pleural Fluid 13 %
[2023-09-07 10:53] LABS: BF Shift QC OK YES; Other Cells Plerual Fl 28 %
--- NOTE | 2023-09-07 12:46 | PM.CNPUL ---
History of Present Illness History of Present Illness Consult date: 09/07/23 Chief complaint: Pleural effusions,hypoxia,pseudomonal pneumonia Narrative: 58-year-old gentleman, active 40+ year smoker, underlying asthma/COPD overlap syndrome, recurrent Pseudomonas pneumonia not responsive to Levaquin and requiring outpatient ertapenem, also recurrent bilateral pleural effusions hydrate is on left admitted on 09/06/2023 with worsening dyspnea. Patient had right-sided thoracentesis performed with placement of right-sided chest tube in drainage of approximately 1200 cc of straw-colored fluid, also on my exam today there is a leak in the collection chamber reason concern for pneumothorax or hydro-pneumothorax. Patient states that after drainage of 1200 cc of pleural fluid his dyspnea significantly improved. Review of Systems Constitutional: Constitutional: Denies daytime sleepiness, Denies excessive sweating, Denies fatigue, Denies fever(s), Denies lethargy, Denies malaise, Denies night sweats, Denies snoring and Denies weight loss Eyes: Eyes: Denies blurry vision and Denies itchy eyes ENT: Denies nasal congestion, Denies post nasal drip, Denies sinus pain, Denies sinus pressure and Denies other ( Thrush) Cardiovascular: Cardiovascular: Denies chest pain, Denies pedal edema, Reports dyspnea, Denies orthopnea and Denies paroxysmal nocturnal dyspnea Respiratory: Respiratory: Denies cough, Denies hemoptysis, Denies excessive phlegm production, Reports dyspnea, Denies snoring and Denies wheezing Gastrointestinal: Gastrointestinal: Denies abdominal pain and Denies heartburn Musculoskeletal: Musculoskeletal: Denies myalgias, Denies arthralgias and Denies joint swelling Integumentary/Breasts: Skin/Breast: Denies rash Neurologic: Denies memory loss and Denies seizure-like activity Psychiatric: Psychiatric: Denies abnormal sleep pattern, Denies anxiety and Denies memory loss Endocrine: Endocrine: Denies excessive sweating, Denies fatigue and Denies heat intolerance Hematologic/Lymphatic: Hematologic/Lymphatic: Denies easy bruising Allergic/Immunologic: Allergic/Immunologic: Denies itchy eyes, Denies seasonal rhinorrhea and Denies wheezing PMFSH Past Medical History Medical History PICC (peripherally inserted central catheter) in place Fatigue Splenomegaly ETOH abuse Anemia with low platelet count Pulmonary nodules COPD (chronic obstructive pulmonary disease) Family History Family History Father Stroke Mother Cancer Surgical History Surgical History Status post left rotator cuff repair (07/15/23) History of thoracentesis Hx of repair of right rotator cuff (10/25/20) History of colonoscopy History of liver biopsy Social History Social History Household Members: Spouse Housing: House Do you presently have visiting nurse or other home services: No Patient Tobacco Use Status: Former Tobacco user Quit Date: one year ago Cigarettes Per Day: 10 Years Smoked: 35 yrs Advance Directives Date on File: 09/07/23 service: No Current occupational status: employed 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 Meds Allergies Allergy/AdvReac Type Severity Reaction Status Date / Time No Known Allergies Allergy Verified 09/06/23 12:13 Active Medications: Current Medications Acetaminophen (Acetaminophen 325 Mg Tablet) 650 mg PO Q6H PRN PRN Reason: Pain, Mild (Pain Scale 1-3) Albuterol Sulfate (Albuterol Sulfate (0.083%) 2.5 Mg/3 Ml Vial.Neb) 2.5 mg INHALE Q4H PRN PRN Reason: shortness of breath or wheezing Albuterol/Ipratropium (Albuterol/Iprat 2.5/0.5mg 3 Ml Ampul.Neb) 3 ml INHALE RQ4H WHILE AWAKE [facility] Last Admin: 09/07/23 11:17 Dose: 3 ml Bumetanide (Bumetanide 1 Mg Tablet) 1 mg PO DAILY [facility]; Protocol Last Admin: 09/07/23 07:57 Dose: Not Given Fluticasone/Umeclidinium/Vilanterol (Fluticasone/Umeclidinium/Vilanterol 100/62.5/25 Blst.W.Dev) 1 puff INHALE RDAILY [facility] Last Admin: 09/07/23 07:43 Dose: 1 puff Heparin Sodium (Porcine) (Heparin Sodium,Porcine 5,000 Unit/Ml Vial) 5,000 unit SUBCUT Q12H [facility] Last Admin: 09/07/23 04:35 Dose: 5,000 unit Piperacillin Sod/Tazobactam (Sod 4.5 gm/ Sodium Chloride) 100 mls @ 200 mls/hr IV Q6H [facility] Last Infusion: 09/07/23 08:44 Dose: Infused Methylprednisolone Sodium Succinate (Methylprednisolone Sod Succ 40 Mg/Ml Vial) 40 mg IVPUSH Q12H [facility] Last Admin: 09/07/23 04:35 Dose: 40 mg Morphine Sulfate (Morphine Sulfate 2 Mg/Ml Cartridge) 2 mg IVPUSH Q3H PRN; Protocol PRN Reason: mpain Ondansetron HCl (Ondansetron Hcl 4 Mg/2 Ml Vial) 4 mg IVPUSH Q8H PRN PRN Reason: Nausea and Vomiting Oxycodone HCl (Oxycodone Hcl Immed Release 5 Mg Tablet) 5 mg PO Q4H PRN PRN Reason: Pain, Severe (Pain Scale 7-10) Last Admin: 09/07/23 09:36 Dose: 5 mg Senna (Sennosides 8.6 Mg Tablet) 17.2 mg PO BEDTIME PRN PRN Reason: Constipation Sodium Chloride (0.9 % Sodium Chloride Flush 3 Ml Syringe) 3 ml IVFLUSH QSHIFT [facility] Last Admin: 09/07/23 07:58 Dose: 3 ml Physical Exam Vital Signs: Vital Signs: Last Vital Signs Temp 97.0 F 09/07/23 07:20 Pulse 110 H 09/07/23 11:17 Resp 18 09/07/23 11:17 BP 116/63 09/07/23 07:20 Pulse Ox 93 09/07/23 07:20 O2 Del Method Room Air 09/07/23 07:20 O2 Flow Rate 3 09/07/23 01:48 BMI result Body Mass Index 27.0 Const: General: no acute distress and alert Nutritional Appearance: not obese Orientation/consciousness: Other orientation findings ( oriented) HEENT: Head: Yes atraumatic Eyes: General: appearance normal, both eyes and all related structures Sclerae: sclerae normal EOM: EOMs intact bilaterally Neck: Neck: Yes supple Lymphatic: no lymphadenopathy noted Resp: Effort & Inspection: normal respiratory effort and no use of accessory muscles Auscultation: clear to auscultation bilaterally Cardio: Rate: regular rate Rhythm: regular rhythm Heart sounds: no gallops, no murmurs and no rubs Skin: General skin exam: other ( warm) Extrem: General: No clubbing, No cyanosis and No edema Results Laboratory Findings 09/07/23 06:02 09/07/23 06:02 ABG, PT/INR, D-dimer: PT/INR, D-dimer PT 12.5 SEC (11.1-13.3) 09/07/23 06:02 INR 1.0 (0.9-1.1) 09/07/23 06:02 Abnormal lab findings: Abnormal Labs 09/06/23 09/06/23 09/06/23 12:14 12:25 17:01 RBC Hgb Hct Immature Gran % (Auto) 0.7 H Neut % (Auto) 86.6 H Lymph % (Auto) 6.5 L [place] % (Auto) Lymph # (Auto) 0.7 L Abs Immat Gran (auto) 0.07 H Absolute Neuts (auto) 8.9 H VBG pH 7.54 H BUN Random Glucose 268 H Total Bilirubin 1.2 H 09/07/23 06:02 RBC 4.10 L Hgb 12.5 L Hct 38.6 L Immature Gran % (Auto) 0.6 H Neut % (Auto) 89.0 H Lymph % (Auto) 8.4 L [place] % (Auto) 1.8 L Lymph # (Auto) 0.7 L Abs Immat Gran (auto) 0.05 H Absolute Neuts (auto) VBG pH BUN 19 H Random Glucose 164 H Total Bilirubin Microbiology: Microbiology 09/07/23 09:10 Thoracentesis Fluid Gram Stain - Final Assessment and Plan (1) Hypoxia: Status: Acute (2) Pleural effusion: Status: Acute (3) COPD (chronic obstructive pulmonary disease): Qualifiers: COPD type: COPD with acute exacerbation Qualified Code(s): J44.1 - Chronic obstructive pulmonary disease with (acute) exacerbation Status: Acute (4) Pulmonary edema: Status: Acute Plan Impression: 58-year-old gentleman with underlying recurrent pleural effusion, recurrent pseudomonal pneumonia, COPD, and pulmonary edema admitted with worsening dyspnea. Now status post right-sided thoracentesis drainage of 1.2 L and placement of right-sided chest tube, unfortunately now also with air leak. Recommendations: Repeat CT chest to evaluate possible trapped lung/hydropneumothorax. Await pleural studies. Continue Bumex Procedures Date of Service Date of Service: 09/07/23
[2023-09-07 13:03] LABS: pH Pleural Fluid 7.49
[2023-09-07 13:07] LABS: Albumin Pleural Fluid 3.1 GM/DL; Glucose Pleural Fluid 176 MG/DL; LDH Pleural Fluid 128 U/L; Total Protein Pleural Fluid 4.4 GM/DL
[2023-09-07] MEDS: Morphine Sulfate 2 MG/ML CARTRIDGE IVPUSH ×3 (13:35→22:06)
[2023-09-08] VITALS (8 sets, daily range): BP systolic 111–118; BP diastolic 63–78; PULSE 69–86; RESP 12–20; TEMP 36.3–37.1; O2SAT 92–95
[2023-09-08] MEDS: Morphine Sulfate 2 MG/ML CARTRIDGE IVPUSH ×5 (01:34→22:47)
[2023-09-08] MEDS: Piperacillin Sodium/Tazobactam 4.5 GM in 0.9 % Sodium Chloride 100 ML IV ×4 (01:35→19:46)
[2023-09-08] MEDS: Heparin Sodium,Porcine 5,000 UNIT/ML VIAL 5000 UNIT SUBCUT ×2 (05:22→16:24)
[2023-09-08] MEDS: methylPREDNISolone Sod Succ 40 MG/ML VIAL IVPUSH ×2 (05:22→16:25)
[2023-09-08 06:50] LABS: Hemoglobin 12.5 g/dl (14.0-18.0); Mean Corpuscular HGB Conc 32.9 g/dl (31.0-36.0); Mean Corpuscular Hemoglobin 31.7 pg (27.0-33.0); Mean Corpuscular Volume 96.4 fL (80.0-98.0); Mean Platelet Volume 11.2 fL (9.4-12.4); Platelet Count 225 X10*3/uL (160-400); Red Blood Count 3.94 X10*6/uL (4.60-5.80); Red Cell Distribution Width 13.2 % (11.0-16.0); White Blood Count 10.8 X10*3/uL (4.8-10.8)
[2023-09-08 07:08] LABS: Albumin Level 3.5 g/dL (3.5-5.0); Anion Gap 11 (12-20); Blood Urea Nitrogen 20 mg/dL (9-16); Calcium 9.1 mg/dL (8.4-10.2); Carbon Dioxide 29 mmol/L (22-29); Chloride 103 mmol/L (96-108); Creatinine Clr Calc Pharmacy 123.3; Estimated Glomerular Filt Rate > 60; Glucose Fasting 134 mg/dL (60-99); Potassium 4.3 mmol/L (3.3-5.1); Sodium 139 mmol/L (135-145)
[2023-09-08] MEDS: Albuterol/Iprat 2.5/0.5MG 3 ML AMPUL.NEB INHALE ×3 (07:36→19:57)
[2023-09-08] MEDS: Fluticasone/Umeclidinium/Vilanterol 100/62.5/25 BLST.W.DEV 1 PUFF INHALE (07:36)
[2023-09-08] MEDS: Bumetanide 1 MG TABLET PO (08:34)
[2023-09-08] MEDS: 0.9 % Sodium Chloride Flush 3 ML SYRINGE IVFLUSH ×3 (08:34→19:47)
--- NOTE | 2023-09-08 08:56 | P.PNIM_ITS ---
Subjective Subjective Date of Service: 09/08/23 Interval History: sob improved, pleuritic chest pain Physical Exam 2 Vital Signs: Vital Signs: Last Vital Signs Temp 97.4 F 09/08/23 07:19 Pulse 69 09/08/23 07:38 Resp 19 09/08/23 08:34 BP 118/73 09/08/23 07:19 Pulse Ox 92 09/08/23 07:19 O2 Del Method Nasal Cannula 09/08/23 07:19 O2 Flow Rate 2 09/08/23 07:19 BMI result Body Mass Index 27.0 Const: General: no acute distress and alert Nutritional Appearance: not obese Orientation/consciousness: Other orientation findings ( oriented) HEENT: Head: Yes atraumatic Eyes: General: appearance normal, both eyes and all related structures S clerae: sclerae normal EOM: EOMs intact bilaterally Neck: Neck: Yes supple Lymphatic: no lymphadenopathy noted Resp: Effort & Inspection: normal respiratory effort and no use of accessory muscles Auscultation: clear to auscultation bilaterally Cardio: Rate: regular rate Rhythm: regular rhythm Heart sounds: no gallops, no murmurs and no rubs Skin: General skin exam: other ( warm) Extrem: General: No clubbing, No cyanosis and No edema Objective Data Active Medications Acetaminophen (Acetaminophen 325 Mg Tablet) 650 mg PO Q6H PRN PRN Reason: Pain, Mild (Pain Scale 1-3) Albuterol Sulfate (Albuterol Sulfate (0.083%) 2.5 Mg/3 Ml Vial.Neb) 2.5 mg INHALE Q4H PRN PRN Reason: shortness of breath or wheezing Albuterol/Ipratropium (Albuterol/Iprat 2.5/0.5mg 3 Ml Ampul.Neb) 3 ml INHALE RQ4H WHILE AWAKE [facility] Last Admin: 09/08/23 07:36 Dose: 3 ml Documented By: TAD Bumetanide (Bumetanide 1 Mg Tablet) 1 mg PO DAILY [facility]; Protocol Last Admin: 09/08/23 08:34 Dose: 1 mg Documented By: SHAR Fluticasone/Umeclidinium/Vilanterol (Fluticasone/Umeclidinium/Vilanterol 100/62.5/25 Blst.W.Dev) 1 puff INHALE RDAILY [facility] Last Admin: 09/08/23 07:36 Dose: 1 puff Documented By: TAD Heparin Sodium (Porcine) (Heparin Sodium,Porcine 5,000 Unit/Ml Vial) 5,000 unit SUBCUT Q12H [facility] Last Admin: 09/08/23 05:22 Dose: 5,000 unit Documented By: SAGAR Piperacillin Sod/Tazobactam (Sod 4.5 gm/ Sodium Chloride) 100 mls @ 200 mls/hr IV Q6H [facility] Last Admin: 09/08/23 08:34 Dose: 200 mls/hr Documented By: SHAR Methylprednisolone Sodium Succinate (Methylprednisolone Sod Succ 40 Mg/Ml Vial) 40 mg IVPUSH Q12H [facility] Last Admin: 09/08/23 05:22 Dose: 40 mg Documented By: SAGAR Morphine Sulfate (Morphine Sulfate 2 Mg/Ml Cartridge) 2 mg IVPUSH Q3H PRN; Protocol PRN Reason: mpain Last Admin: 09/08/23 08:34 Dose: 2 mg Documented By: SHAR Ondansetron HCl (Ondansetron Hcl 4 Mg/2 Ml Vial) 4 mg IVPUSH Q8H PRN PRN Reason: Nausea and Vomiting Oxycodone HCl (Oxycodone Hcl Immed Release 5 Mg Tablet) 5 mg PO Q4H PRN PRN Reason: Pain, Severe (Pain Scale 7-10) Last Admin: 09/07/23 20:15 Dose: 5 mg Documented By: LYSAnton Senna (Sennosides 8.6 Mg Tablet) 17.2 mg PO BEDTIME PRN PRN Reason: Constipation Sodium Chloride (0.9 % Sodium Chloride Flush 3 Ml Syringe) 3 ml IVFLUSH QSHIFT [facility] Last Admin: 09/08/23 08:34 Dose: 3 ml Documented By: SHAR Labs 09/08/23 05:31 09/08/23 05:31 Labs: Laboratory Results - last 24 hr 09/07/23 09/07/23 09/07/23 02:08 09:10 09:36 MCV MCH MCHC RDW Plt Count MPV Absolute Nucleated RBC Nucleated RBC % (auto) Anion Gap Estim Creat Clear Calc Estimated GFR Fasting Glucose Calcium Lactate Dehydrogenase 172 Total Protein 6.7 Albumin Peritoneal WBC Cancelled Peritoneal RBC Cancelled Periton Neutrophils Cancelled Periton Lymphocytes Cancelled Peritoneal Monocytes Cancelled Peritoneal Eosinophils Cancelled Peritoneal Basophils Cancelled Peritoneal Other Cells Cancelled Pleural pH 7.49 Pleural WBC 1.463 Pleural RBC 0.003 Pleural Neutrophils 13 Pleural Lymphocytes 54 Pleural Monocytes 5 Pleural Other Cells 28 Pleural Total Protein 4.4 Pleural Albumin 3.1 Pleural LDH 128 Pleural Glucose 176 Respiratory Panel Garcia See Note Adenovirus (Rapid PCR) Not Detected B.pert (TEM-PCR) Not Detected B.parapertussis DNA PCR Not Detected C. pneumoniae DNA (PCR) Not Detected Coronavirus OC43 (PCR) Not Detected Coronavirus HKU1 (PCR) Not Detected Coronavirus 229E (PCR) Not Detected Coronavirus NL63 (PCR) Not Detected Human Metapneumovir PCR Not Detected Influenza A (RT-PCR) Not Detected Influenza B (RT-PCR) Not Detected M. pneumoniae (PCR) Not Detected Parainfluenza 1 (PCR) Not Detected Parainfluenza 2 (PCR) Not Detected Parainfluenza 3 (PCR) Not Detected Parainfluenza 4 (PCR) Not Detected RSV (PCR) Not Detected Entero/Rhino (PCR) Not Detected SARS-CoV-2 RNA (RT-PCR) Not Detected 09/08/23 05:31 MCV 96.4 MCH 31.7 MCHC 32.9 RDW 13.2 Plt Count 225 MPV 11.2 Absolute Nucleated RBC 0.000 Nucleated RBC % (auto) 0.0 Anion Gap 11 L Estim Creat Clear Calc 123.3 Estimated GFR > 60 Fasting Glucose 134 H Calcium 9.1 Lactate Dehydrogenase Total Protein Albumin 3.5 Peritoneal WBC Peritoneal RBC Periton Neutrophils Periton Lymphocytes Peritoneal Monocytes Peritoneal Eosinophils Peritoneal Basophils Peritoneal Other Cells Pleural pH Pleural WBC Pleural RBC Pleural Neutrophils Pleural Lymphocytes Pleural Monocytes Pleural Other Cells Pleural Total Protein Pleural Albumin Pleural LDH Pleural Glucose Respiratory Panel Garcia Adenovirus (Rapid PCR) B.pert (TEM-PCR) B.parapertussis DNA PCR C. pneumoniae DNA (PCR) Coronavirus OC43 (PCR) Coronavirus HKU1 (PCR) Coronavirus 229E (PCR) Coronavirus NL63 (PCR) Human Metapneumovir PCR Influenza A (RT-PCR) Influenza B (RT-PCR) M. pneumoniae (PCR) Parainfluenza 1 (PCR) Parainfluenza 2 (PCR) Parainfluenza 3 (PCR) Parainfluenza 4 (PCR) RSV (PCR) Entero/Rhino (PCR) SARS-CoV-2 RNA (RT-PCR) Microbiology Microbiology Results: Microbiology 09/07/23 09:10 Gram Stain - Final Thoracentesis Fluid Anaerobic Culture - Preliminary No growth to date. Body Fluid Culture - Preliminary No growth after 1 day 09/06/23 12:22 Blood Culture - Preliminary Blood - Venous No growth after 24 hours. 09/06/23 12:22 Blood Culture - Preliminary Blood - Venous No growth after 24 hours. Assessment and Plan (1) Hypoxia: Status: Acute Plan 58M PMH etoh dependence, AFLD, copd, pseudomonal pneumonia with recurrent pleural effusions presented with sob sepsis due to pneumonia copmlicated by Right pleural effusion and acute hypoxic respiratory failure zosyn, pulm following, s/p thoracentesis and chest tube, follow up cultures copd with acute decompensation steroids, nebs chronic diastolic chf bumex full code dvt prophylaxis - hep sq reason for continued hospitalization:hypoxia Quality Stroke Does the patient have a stroke diagnosis?: No VTE Prior VTE?: No VTE Risk Level:: Medical - moderate - high VTE Device Contraindication: Treatment Not Indicated VTE Drug Contraindication: N/A - Med Ordered
--- NOTE | 2023-09-08 10:19 | P.PNPL_ITS ---
Subjective Subjective Date of Service: 09/08/23 Interval history: CT chest reviewed, no evidence of trapped lung or hydropneumothorax. Air leak resolved. Objective Data Labs 09/08/23 05:31 09/08/23 05:31 Labs: Laboratory Results - last 24 hr 09/07/23 09/08/23 09:10 05:31 WBC 10.8 RBC 3.94 L Hgb 12.5 L Hct 38.0 L MCV 96.4 MCH 31.7 MCHC 32.9 RDW 13.2 Plt Count 225 MPV 11.2 Absolute Nucleated RBC 0.000 Nucleated RBC % (auto) 0.0 Sodium 139 Potassium 4.3 Chloride 103 Carbon Dioxide 29 Anion Gap 11 L BUN 20 H Creatinine 0.75 Estim Creat Clear Calc 123.3 Estimated GFR > 60 Fasting Glucose 134 H Calcium 9.1 Albumin 3.5 Pleural pH 7.49 Pleural Neutrophils 13 Pleural Lymphocytes 54 Pleural Monocytes 5 Pleural Other Cells 28 Pleural Total Protein 4.4 Pleural Albumin 3.1 Pleural LDH 128 Pleural Glucose 176 Microbiology Microbiology Results: Microbiology 09/07/23 14:45 Sputum - Expectorated Gram Stain - Final 09/07/23 09:10 Thoracentesis Fluid Gram Stain - Final 09/07/23 09:10 Thoracentesis Fluid Anaerobic Culture - Preliminary No growth to date. 09/07/23 09:10 Thoracentesis Fluid Body Fluid Culture - Preliminary No growth after 1 day 09/06/23 12:22 Blood - Venous Blood Culture - Preliminary No growth after 24 hours. 09/06/23 12:22 Blood - Venous Blood Culture - Preliminary No growth after 24 hours. Review of Systems Cardiovascular: Denies chest pain and Denies dyspnea Respiratory: Denies cough, Denies excessive phlegm production and Denies dyspnea Physical Exam 2 Vital Signs: Vital Signs: Last Vital Signs Temp 97.4 F 09/08/23 07:19 Pulse 69 09/08/23 07:38 Resp 19 09/08/23 08:34 BP 118/73 09/08/23 07:19 Pulse Ox 92 09/08/23 07:19 O2 Del Method Nasal Cannula 09/08/23 07:19 O2 Flow Rate 2 09/08/23 07:19 BMI result Body Mass Index 27.0 Const: General: no acute distress, alert and awake Eyes: Sclerae: sclerae normal EOM: EOMs intact bilaterally Neck: Neck: Yes no lymphadenopathy, Yes trachea midline and Yes supple Resp: Effort & Inspection: normal respiratory effort and no respiratory distress Auscultation: clear to auscultation bilaterally Cardio: Rate: regular rate Rhythm: regular rhythm Heart sounds: no gallops, no murmurs and no rubs GI: Palpation (GI): Soft to palpation and Other GI palpation findings present ( Nontender) Auscultation: normal bowel sounds Extrem: General: Yes no pedal edema, No clubbing and No cyanosis Procedures Date of Service Date of Service: 09/08/23 Assessment and Plan Assessment and plan (1) COPD (chronic obstructive pulmonary disease): Status: Acute (2) Pleural effusion: Status: Acute (3) Hypoxia: Status: Acute Plan Impression: 58-year-old gentleman with underlying recurrent pleural effusion, recurrent pseudomonal pneumonia, COPD, and pulmonary edema admitted with worsening dyspnea. Now status post right-sided thoracentesis drainage of 1.2 L and placement of right-sided chest tube, previously noted air leak has resolved. CT chest with no evidence of trapped lung. Recommendations: Pleural studies showed transudative effusion. Agree with Interventional Radiology plan to remove right-sided chest tube. Continue Bumex and Zosyn. Time Spent With Patient Time: Total time managing care of this patient today ____ minutes. Progress Note: Quality Stroke Does the patient have a stroke diagnosis?: No
--- NOTE | 2023-09-08 12:31 | PM.EVENT ---
Event Note Date of Service: 09/08/23 Event Note: Patient seen and examined. No air leak this morning. Total chest tube output 1400 ml. 1 hr clamping trial performed due to concern of airleak yesterday, however, no pneumothorax. Right chest tube was removed in patient's room. Dry dressing applied. No immediate complications. Dimas MENSAH Interventional Radiology Time Spent With Patient Time: Total time managing care of this patient today ____ minutes.
[2023-09-09] MEDS: Piperacillin Sodium/Tazobactam 4.5 GM in 0.9 % Sodium Chloride 100 ML IV ×2 (01:55→08:53)
[2023-09-09 03:29] VITALS: BP 106/67; PULSE 62; RESP 18; TEMP 36.3; O2SAT 94
[2023-09-09] MEDS: methylPREDNISolone Sod Succ 40 MG/ML VIAL IVPUSH (04:52)
[2023-09-09] MEDS: Heparin Sodium,Porcine 5,000 UNIT/ML VIAL 5000 UNIT SUBCUT (04:52)
[2023-09-09 05:35] LABS: Hematocrit 38.3 % (42.0-52.0); Hemoglobin 12.3 g/dl (14.0-18.0); Mean Corpuscular HGB Conc 32.1 g/dl (31.0-36.0); Mean Corpuscular Hemoglobin 31.1 pg (27.0-33.0); Mean Corpuscular Volume 96.7 fL (80.0-98.0); Mean Platelet Volume 10.7 fL (9.4-12.4); Platelet Count 227 X10*3/uL (160-400); Red Blood Count 3.96 X10*6/uL (4.60-5.80); Red Cell Distribution Width 13.1 % (11.0-16.0); White Blood Count 9.6 X10*3/uL (4.8-10.8)
[2023-09-09 05:49] LABS: Anion Gap 11 (12-20); Blood Urea Nitrogen 21 mg/dL (9-16); Calcium 8.6 mg/dL (8.4-10.2); Carbon Dioxide 27 mmol/L (22-29); Chloride 104 mmol/L (96-108); Creatinine Clr Calc Pharmacy 123.3; Estimated Glomerular Filt Rate > 60; Glucose Fasting 125 mg/dL (60-99); Potassium 4.4 mmol/L (3.3-5.1); Sodium 138 mmol/L (135-145)
[2023-09-09 07:39] VITALS: BP 130/76; PULSE 62; RESP 12; TEMP 36.2; O2SAT 94
[2023-09-09] MEDS: Albuterol/Iprat 2.5/0.5MG 3 ML AMPUL.NEB INHALE ×2 (08:11→12:07)
[2023-09-09] MEDS: Fluticasone/Umeclidinium/Vilanterol 100/62.5/25 BLST.W.DEV 1 PUFF INHALE (08:11)
[2023-09-09 08:13] VITALS: PULSE 91; RESP 16; O2SAT 97
[2023-09-09] MEDS: 0.9 % Sodium Chloride Flush 3 ML SYRINGE IVFLUSH (08:53)
[2023-09-09] MEDS: Bumetanide 1 MG TABLET PO (08:53)
[2023-09-09 12:08] VITALS: PULSE 91; RESP 16; O2SAT 93
[2023-09-09 12:09] VITALS: PULSE 102; PULSE 99; O2SAT 91; O2SAT 92
--- NOTE | 2023-09-09 14:17 | PM.DS ---
DS: Providers Provider Date of Service: 09/09/23 Date of admission: 09/06/23 16:15 Primary care physician: Jonel Forrester MD Consults: 09/06/23 16:20 Consult to Pulmonology Routine Consulting Provider: [facility] Reason for consultation: recurrent pleural effusions, pseudomonal pneumonia DS: Diagnosis Discharge Diagnosis (1) COPD (chronic obstructive pulmonary disease): Status: Acute (2) Pleural effusion: Status: Acute (3) Hypoxia: Status: Acute DS: Summary Hospital Course Hospital Course: Admission note HPI 58 year old with history of COPD, hx etoh abuse, splenomegaly, pulmonary nodules, hx pseudomonal pneumonia with recurrent pleural effusions who is a former smoker with 40+ pack year history presents to the ED earlier today with his , who assists with bulgarian translation, for evaluation of fevers, sob, and productive cough ongoing several days. He has been following with Dr. Long in pulmonology and has undergone several thoracentes initially draining 900ml simple fluid and has had right sided thoracentesis with 10cc chronic transudative fluid with negative cultures at [facility] following covid 19 infection. He has also had multiple positive spumum cultures growing pneudomonas. He has been treated with furosemide with limited improvement in the effusions and echo showed only mild diastolic dysfunction. He was prescribed inh tobramycin but insurance did not cover this. He was scheduled for thoracentesis tomorrow 09/06 but unfortunately due to worsening symptoms, presented to [facility] ED. He has had increased sob, wheezing, and cough with yellow blood-tinged sputum production. Febrile to 102.6. Reports O2 sat was 85-85% at home and is not O2 depedendent at baseline. On arrival, pt hypoxic to 88%, placed on 2L supplemental O2 maintaining oximetry 92-93%, tachycardic to 121, Vitals otherwise stable. No leukocytosis. Renal function and electrolytes normal. VBG reassuring. Trop and BNP WNL. Negative COVID19, influenza. CXR shows persistent small to moderate volume b/l pleural effusions R>L, persistent pulmonary vascular congestion. In the ED, given 125mg IV methylprednisolone, duoneb, and zosyn. Hospital course The patient was admitted for sepsis due to pneumonia complicated by Right pleural effusion and acute hypoxic respiratory failure. He was treated with O2 supplement along with IV antibiotics and pulmonology evaluation. IR placed chest tube and fluid analysis looks more transudate. He was covered with Zosyn as cultures remained negative. Steroids were used as part of treatment for COPD exacerbation along with nebulizers. Chest tube was later removed by IR. he was weaned off Oxygen and had a home O2 eval that he passed with no need of O2 at home. He has hx of pseudomonal lung infections. to cover total of 14 days of antibiotics with Levaquin for 10 more days on discharge. Continue Levofloxacin for 10 more days Continue tapering dose of Prednisone Follow up with your primary next week Time Attestation Discharge coordination time: Greater than 30 minutes Quality: Safe Use of Opioids Does Pt have an Active Cancer Diagnosis on the Problem List?: No Quality: Stroke Does the patient have a stroke diagnosis?: No Physical Exam Vital Signs: Vital Signs: Last Vital Signs Temp 97.1 F 09/09/23 07:39 Pulse 91 09/09/23 12:08 Resp 16 09/09/23 12:08 BP 130/76 09/09/23 07:39 Pulse Ox 94 09/09/23 07:39 O2 Del Method Nasal Cannula 09/09/23 07:39 O2 Flow Rate 2 09/09/23 07:39 BMI result Body Mass Index 27.0 Const: Other: Constitutional : Awake, interactive, not in distress Neck : Normal inspection, Supple Cardiovascular : RRR, no JVP, no lower extremity edema Respiratory : good bilateral air entry, basal fine crackles, no wheezes Gastrointestinal: soft, lax, Normal bowel sounds, Non tender Skin : Warm, Dry Neurological : Alert & oriented x3, No focal deficit DS: Data Data Completed and Pending Labs on day of discharge: Laboratory Results - last 24 hr 09/09/23 09/09/23 05:10 05:11 WBC 9.6 RBC 3.96 L Hgb 12.3 L Hct 38.3 L MCV 96.7 MCH 31.1 MCHC 32.1 RDW 13.1 Plt Count 227 MPV 10.7 Absolute Nucleated RBC 0.000 Nucleated RBC % (auto) 0.0 Sodium 138 Potassium 4.4 Chloride 104 Carbon Dioxide 27 Anion Gap 11 L BUN 21 H Creatinine 0.75 Estim Creat Clear Calc 123.3 Estimated GFR > 60 Fasting Glucose 125 H Calcium 8.6 Preliminary micro results at discharge 09/07/23 09:10 Anaerobic Culture - Preliminary Thoracentesis Fluid No growth to date. 09/06/23 12:22 Blood Culture - Preliminary Blood - Venous No growth after 48 hours. 09/06/23 12:22 Blood Culture - Preliminary Blood - Venous No growth after 48 hours. Imaging Chest x-ray: Radiologist's impression: ITS Impressions Chest X-Ray 09/06/23 13:26 IMPRESSION: 1. Persistent small to moderate volume bilateral pleural effusions right larger in volume than left. 2. Persistent pulmonary vascular congestion. Chest CT 09/06/23 17:52 IMPRESSION: 1. Mild changes of centrilobular emphysema and peribronchial thickening. 2. Small right pleural effusion and compressive atelectasis in the right lower lobe. 3. 0.4 cm nodule in the left upper lobe. 4. Mild ascites. 5. Splenomegaly. 6. Trace of pericardial effusion. Fleischner guidelines were followed. Thoracentesis/Paracentesis US 09/07/23 09:20 IMPRESSION: Ultrasound-guided right chest tube placement yielding yellow fluid. This procedures performed by Dimas Miranda PA-C and supervised by Dr. Craven. Chest X-Ray 09/07/23 11:18 IMPRESSION: 1. Interval placement of a right basilar pigtail pleural catheter. Interval decrease in now trace right pleural effusion. No pneumothorax. 2. Slightly increased patchy left basilar airspace opacities which may reflect worsening infection or aspiration. 3. Interval improvement in right basilar airspace opacities which may reflect improving atelectasis. Chest CT 09/07/23 14:36 IMPRESSION: Smallbore right base pleural drainage catheter with no residual pleural effusion. Small amount of adjacent right posterior chest wall subcutaneous emphysema. Tiny residual right apical pneumothorax questioned. Centrilobular emphysema, bullous changes, bilateral lower lobe atelectasis and tiny left effusion. Redemonstration splenomegaly, ascites and small pericardial effusion. Fleischner guidelines were followed. Chest X-Ray 09/08/23 11:20 IMPRESSION: No pneumothorax. Bibasilar atelectasis. Discharge Plan Discharge Anticipated Discharge Date/Time: 09/09/23 14:05 Patient Disposition: Home, Self-Care Discharge Diagnosis: Pneumonia Pleural effusion Referrals: Jonel Forrester MD [Primary Care Provider] - 1 Week Discharge Medications: New Trelegy Ellipta 100-62.5-25 mcg Blister With Device 1 inh inhalation RDAILY Qty: 60 0RF prednisone 10 mg tablet See Taper PO DIRECTED Qty: 30 0RF Taper: Prednisone 40 mg daily for 3 Days and 0 Hour 30 mg daily for 3 Days and 0 Hour 20 mg daily for 3 Days and 0 Hour 10 mg daily for 3 Days and 0 Hour Rx Instructions: see taper instructions levofloxacin 750 mg tablet 750 mg PO Q24H Qty: 10 0RF Continued albuterol sulfate 2.5 mg /3 mL (0.083 %) solution for nebulization 2.5 mg inhalation Q4-6H PRN (Reason: shortness of breath or wheezing) 30 Days Qty: 360 6RF oxycodone-acetaminophen [Percocet] 5-325 mg tablet 1 tab PO Q4-6H PRN (Reason: pain) Qty: 42 0RF Rx Instructions: Partial Fill upon patient request. bumetanide 1 mg tablet 1 mg PO DAILY Qty: 30 6RF Discharge Orders: Discharge Order (Routine); Ordered 09/09/23 Ordered By: Ainsley Pickering Diet: Advance to usual diet Activity on Discharge: As tolerated Stand Alone Forms: Patient Portal Discharge page Care Plan Goals: Read below Health Concerns: Read below Plan of Treatment: Read below Assessment: You were admitted for evaluation of difficulties breathing. found to have an evidence of lung infection with associated pleural effusion requiring placement of chest tube for fluids removal with good response. Continue Levofloxacin for 10 more days Continue tapering dose of Prednisone Follow up with your primary next week
--- NOTE | 2023-09-09 14:34 | MHC.CM.NN ---
pt is being dcd today no servies ordrwd
[2023-09-12 00:14] LABS: Strep Pneumo Ag urine Not Detected (Not Detected)
[2023-09-12 04:34] LABS: Legionella Ag Urine Not Detected (Not Detected)
== END 2023-09-09 14:53 | disposition home or self-care (01) | DRG 720 ==
LOC: HO.ED 15:32 → HO.EDOVER 16:33 → HO.S3 18:04
PROVIDERS: Internal Medicine; Internal Medicine Pulmonary Disease; Nurse Practitioner Family; Student in an Organized Health Care Education/Training Program; Admitting Provider Physician Assistant; Emergency Provider Emergency Medicine; PCP Internal Medicine; Visit Provider Student in an Organized Health Care Education/Training Program
PROC: (CPT 32551; principal; 2023-09-07 08:30)
DX: A41.9 Sepsis, unspecified organism (principal); J96.01 Acute respiratory failure with hypoxia; J18.9 Pneumonia, unspecified organism; I50.32 Chronic diastolic (congestive) heart failure; J91.8 Pleural effusion in other conditions classified elsewhere; J44.0 Chronic obstructive pulmonary disease with (acute) lower respiratory infection; Z20.822 Contact with and (suspected) exposure to COVID-19; J44.1 Chronic obstructive pulmonary disease with (acute) exacerbation; Z87.891 Personal history of nicotine dependence; Z79.899 Other long term (current) drug therapy
CPT/HCPCS: 32557; 36415; 71045; 71046; 71250; 80048; 80053; 82040; 82042; 82803; 82945; 82947; 83605; 83615; 83880; 83986; 84155; 84157; 84484; 85025; 85027; 85610; 85730; 87040; 87070; 87073; 87102; 87116; 87205; 87206; 87449; 87502; 87633; 87635; 87899; 89051; 93005; 94640; 99285; J1644; J2270; J2543; J2920; J2930; Q4186

== ENCOUNTER → 2023-09-06 12:02 | Outpatient (BNV) | payer OTHER, SELFPAY | PROVIDERS: Admitting Provider Physician Assistant; Emergency Provider Emergency Medicine; PCP Internal Medicine; Visit Provider Internal Medicine Cardiovascular Disease | DX: I45.2 Bifascicular block (principal); R94.31 Abnormal electrocardiogram [ECG] [EKG] | CPT/HCPCS: 93010 ==

== ENCOUNTER 2023-09-06 16:15 | Outpatient (BNV) | payer OTHER, SELFPAY | END 2023-09-07 08:30 | PROVIDERS: Admitting Provider Physician Assistant; Emergency Provider Emergency Medicine; PCP Internal Medicine; Visit Provider Radiology Diagnostic Radiology | DX: J90 Pleural effusion, not elsewhere classified (principal); R50.9 Fever, unspecified | CPT/HCPCS: 32557 ==

== ENCOUNTER → 2023-09-06 16:15 | Outpatient (BNV) | payer OTHER, SELFPAY | PROVIDERS: Admitting Provider Physician Assistant; Emergency Provider Emergency Medicine; PCP Internal Medicine; Visit Provider Internal Medicine Pulmonary Disease | DX: J44.1 Chronic obstructive pulmonary disease with (acute) exacerbation (principal); J90 Pleural effusion, not elsewhere classified; R09.02 Hypoxemia | CPT/HCPCS: 99223; 99232 ==

== ENCOUNTER → 2023-09-06 16:15 | Outpatient (BNV) | payer OTHER, SELFPAY | PROVIDERS: Admitting Provider Physician Assistant; Emergency Provider Emergency Medicine; PCP Internal Medicine; Visit Provider Physician Assistant | DX: J44.1 Chronic obstructive pulmonary disease with (acute) exacerbation (principal); J96.01 Acute respiratory failure with hypoxia; J90 Pleural effusion, not elsewhere classified | CPT/HCPCS: 99223; 99233; 99239 ==

== ENCOUNTER 2023-09-15 11:05 | Outpatient (AMB) | payer OTHER, SELFPAY ==
[2023-09-15 11:08] VITALS: BP 109/67; PULSE 108; O2SAT 95
--- NOTE | 2023-09-15 11:08 | MHC.OFFVIS ---
Intake Vital Signs 09/15/23 11:08 Weight 207 lb BP 109/67 Blood Pressure Location Lt brachial Position Sitting Pulse 108 H Pulse Source Doppler Pulse Oximetry (%) 95 Oxygen Delivery Method Room Air Intake Visit Reasons: Pleural Effusion Allergies No Known Allergies Allergy (Verified 09/06/23 12:13) HPI Pleural Effusion HPI Details 58-year-old gentleman, active 40+ pack-year smoker, followed for moderate asthma/ COPD overlap syndrome and cough.Patient has been hospitalized at [facility] for bilateral pleural effusions with unclear etiology. His rheumatologic, cardiac, and pulmonary workup was negative. He cannot afford Stiolto or Anoro and has been using duo nebs. Continues to complain of dyspnea with intermittent bouts of bronchitic symptoms med that respond poorly to courses of antibiotics and prednisone. He has been tried on diuretic with no significant changes in his symptoms. He only derives symptomatic benefit from using duo nebs, however it only lasts for several hours between treatments. Patient has been evaluated by Cardiology and now undergoes further testing. He also has had two right-sided thoracentesis, initially with drainage of approximately 900 cc of simple fluid with improvement in his dyspnea. Then patient had COVID requiring brief hospitalization at [facility], after which he developed cough with worsening phlegm and he had a 2nd right-sided thoracentesis, at this time with drainage of only 10 cc of chronic transudative with negative cultures. His sputum cultures have been growing Pseudomonas. After the last office visit patient requiring brief hospitalization dyspnea and pleural effusion with drainage of 1.5 L with resolution of his symptoms. Pleural studies show transudative effusion with no acute infection. [facility] Medical History PICC (peripherally inserted central catheter) in place Fatigue Splenomegaly ETOH abuse Anemia with low platelet count Pulmonary nodules COPD (chronic obstructive pulmonary disease) Surgical History Status post left rotator cuff repair (07/15/23) History of thoracentesis Hx of repair of right rotator cuff (10/25/20) History of colonoscopy History of liver biopsy Family History Father Stroke Mother Cancer Social History Household Members: Spouse Housing: House Do you presently have visiting nurse or other home services: No Patient Tobacco Use Status: Former Tobacco user Quit Date: one year ago Cigarettes Per Day: 10 Years Smoked: 35 yrs Advance Directives Date on File: 09/07/23 service: No Current occupational status: employed 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 Review of Systems Const Denies daytime sleepiness, Denies excessive sweating, Denies fatigue, Denies fever(s), Denies lethargy, Denies malaise, Denies night sweats, Denies snoring and Denies weight loss Eyes Denies blurry vision and Denies itchy eyes ENT Denies nasal congestion, Denies post nasal drip, Denies sinus pain, Denies sinus pressure and Denies other ( Thrush) Card Denies chest pain, Denies pedal edema, Denies dyspnea, Denies orthopnea and Denies paroxysmal nocturnal dyspnea Resp Denies cough, Denies hemoptysis, Denies excessive phlegm production, Denies dyspnea, Denies snoring and Denies wheezing GI Denies abdominal pain and Denies heartburn Musc Denies myalgias, Denies arthralgias and Denies joint swelling Skin/Breast Denies rash Neuro Denies memory loss and Denies seizure-like activity Psych Denies abnormal sleep pattern, Denies anxiety and Denies memory loss Endo Denies excessive sweating, Denies fatigue and Denies heat intolerance Rohit/Lymph Denies easy bruising Aller/Immun Denies itchy eyes, Denies seasonal rhinorrhea and Denies wheezing Physical Exam Vital Signs: Last Vital Signs Pulse 108 H 09/15/23 11:08 BP 109/67 09/15/23 11:08 Pulse Ox 95 09/15/23 11:08 Oxygen Delivery Method Room Air 09/15/23 11:08 Const General: no acute distress and alert Nutritional Appearance: not obese Orientation/consciousness: Other orientation findings ( oriented) HEENT Head: Yes atraumatic Eyes General: appearance normal, both eyes and all related structures Sclerae: sclerae normal EOM: EOMs intact bilaterally Neck Neck: Yes supple Lymphatic: no lymphadenopathy noted Resp Effort & Inspection: normal respiratory effort and no use of accessory muscles Auscultation: clear to auscultation bilaterally Cardio Rate: regular rate Rhythm: regular rhythm Heart sounds: no gallops, no murmurs and no rubs Skin General skin exam: other ( warm) Extrem General: No clubbing, No cyanosis and No edema Assessment & Plan Assessment & Plan (1) Pulmonary edema: Code(s): J81.1 - Chronic pulmonary edema Plan: Now status post thoracentesis with drainage of a 1.5 L. Controlled on Bumex 1 mg daily. Continue current regimen. (2) COPD (chronic obstructive pulmonary disease): Code(s): J44.9 - Chronic obstructive pulmonary disease, unspecified Qualifiers: COPD type: COPD with acute exacerbation Qualified Code(s): J44.1 - Chronic obstructive pulmonary disease with (acute) exacerbation Plan: Well controlled on Trelegy and albuterol MDI/nebs. Continue current regimen. Coding Level of Care Code Est Pt Level 4 (70647) Diagnoses Pulmonary edema J81.1 COPD (chronic obstructive pulmonary disease) J44.1 COPD type: COPD with acute exacerbation
== END 2023-09-15 11:21 | disposition home or self-care (01) ==
PROVIDERS: PCP Internal Medicine; Visit Provider Internal Medicine Pulmonary Disease
DX: J81.1 Chronic pulmonary edema (principal); J44.1 Chronic obstructive pulmonary disease with (acute) exacerbation
CPT/HCPCS: 99214

== ENCOUNTER → 2023-09-15 11:05 | Outpatient (BNVA) | payer OTHER, SELFPAY | PROVIDERS: PCP Internal Medicine; Visit Provider Internal Medicine Pulmonary Disease ==

== ENCOUNTER 2023-09-17 08:09 | Outpatient (REF) | payer OTHER, SELFPAY | END 2023-09-17 08:10 | disposition home or self-care (01) | LOC: HO.US 08:09 | PROVIDERS: PCP Internal Medicine; Visit Provider Internal Medicine Pulmonary Disease | DX: Z13.89 Encounter for screening for other disorder (principal) ==

== ENCOUNTER 2023-09-23 07:48 | Outpatient (REF) | payer OTHER, SELFPAY ==
--- NOTE | ~2023-09-23 | US_ITS ---
EXAMINATION: US COMPLETE ABDOMEN WITH LIVER ELASTOGRAPHY CLINICAL INFORMATION: Ascites. COMPARISON: Abdominal ultrasound dated 02/06/2023; CT chest dated 09/06/2023. TECHNIQUE: Real-time imaging of the abdominal viscera. Noninvasive ultrasound liver fibrosis assessment is performed using Ashly ElastPQ point quantification shear wave elastography (2D-SWE) with a C5-2 MHz transducer. Multiple elastography samples are obtained. FINDINGS: PANCREAS: Limited. The visualized pancreatic head and body are normal in appearance. The remainder of the pancreas is obscured from visualization by the bowel gas. ABDOMINAL AORTA: The proximal, middle, and distal aortic segments are normal in caliber. INFERIOR VENA CAVA: Visualized portions are normal. LIVER: The liver demonstrates normal size, contour and increased echogenicity. No focal lesion or intrahepatic biliary duct dilatation. The right lobe measures 19.8 cm in length. The left lobe measures 12.3 cm in length. Portal flow is towards the liver (hepatopetal). Shear wave liver elastography median stiffness is 1.10 m/s (reference: normal median stiffness is 1.3 m/s or less). IQR/median stiffness to assess sampling precision is 0.11 (reference: good quality data set is IQR/median stiffness of 0.15 or less). GALLBLADDER: Normal. The gallbladder is physiologically distended without evidence of stones, sludge, polyps, wall thickening or pericholecystic fluid. COMMON BILE DUCT: Normal in caliber measuring 0.6 cm in diameter. RIGHT KIDNEY: Normal. No hydronephrosis. No renal calculi or focal parenchymal lesions. The kidney measures 13.1 cm in maximum dimension. LEFT KIDNEY: Normal. No hydronephrosis. No renal calculi or focal parenchymal lesions. The kidney measures 11.5 cm in maximum dimension. SPLEEN: No focal finding. The spleen measures 17.0 cm in maximum dimension. FREE FLUID: There is mild perihepatic ascites. OTHER: Superior to the right kidney, a 3.0 x 1.211 29 cm hypoechoic, circumscribed lesion is seen. On the ultrasound examination of 02/10/2023, this measured 2.4 x 1.7 x 2.4 cm. US/US abdomen comp w elastography IMPRESSION: 1. There is hepatosplenomegaly. 2. There is generalized increase in hepatic echotexture, consistent with fatty infiltration or hepatocellular disease. Please correlate clinically. No focal hepatic mass or intrahepatic biliary dilatation is seen. 3. Liver elastography: Measurements are consistent with a high probability of normal liver stiffness. 4. A right suprarenal density is redemonstrated, with dimensions as detailed. On the CT chest dated 09/06/2023, the right adrenal gland appears normal. The interim stability is reassuring. If of continued clinical concern, this finding could be further evaluated with a dedicated CT examination of the abdomen and pelvis. 5. Technically limited ultrasound examination of the pancreatic tail. REFERENCE: Society of Radiologists in Ultrasound Liver Stiffness Thresholds (2020): LIVER STIFFNESS THRESHOLDS: *Liver Stiffness equal or less than 1.3 m/s: High probability of being normal. *Liver Stiffness less than 1.7 m/s: In the absence of other known clinical signs, rules out compensated advanced chronic liver disease. *Liver Stiffness 1.7-2.1 m/s: Suggestive of compensated advanced chronic liver disease but need further test for confirmation. *Liver Stiffness over 2.1 m/s: Rules in compensated advanced chronic liver disease. *Liver Stiffness over 2.4 m/s: Suggestive of clinically significant portal hypertension. QUALITY OF DATA SET: *IQR/Median value equal or less than 0.15 implies a quality data set. *IQR/Median value over 0.15 implies a poor quality data set. SIGNIFICANT CHANGE FROM PRIOR EXAM: Significant change if liver stiffness measurement is 10% or greater from prior exam. OTHER CONSIDERATIONS: The stage of liver fibrosis may be overestimated in the setting of acute hepatitis, liver inflammation, elevated liver function tests, hepatic vascular congestion, obstructive cholestasis, non-fasting state, and infiltrative diseases such as amyloidosis and lymphoma. In some patients with NAFLD, the liver stiffness thresholds for compensated advanced chronic liver disease may be lower. In causes other than viral hepatitis and NAFLD, liver stiffness thresholds are not well established.
== END 2023-09-23 07:49 | disposition home or self-care (01) ==
LOC: HO.US 07:48
PROVIDERS: PCP Internal Medicine; Visit Provider Internal Medicine Pulmonary Disease
DX: R18.8 Other ascites (principal)
CPT/HCPCS: 76700; 76981

== ENCOUNTER 2023-09-29 09:47 | Outpatient (REF) | payer OTHER, SELFPAY ==
--- NOTE | ~2023-09-29 | XR_ITS ---
EXAMINATION: XR CHEST CLINICAL INFORMATION: Chronic cough COMPARISON: Multiple prior chest examinations most recent chest x-ray 09/08/[address] scan of the chest 09/07/2023 TECHNIQUE: 2 views of the chest were obtained. FINDINGS: There is some persistent mild increased interstitial markings at the bases somewhat to prior compatible with chronic change. Small bilateral pleural effusions. Cardiomediastinal silhouette normal Postsurgical changes in the left shoulder XR/XR chest 2V IMPRESSION: 1. Small bilateral pleural effusions. 2. Mild increased interstitial markings at the bases compatible with chronic change.
[2023-09-29 10:56] LABS: MANUAL DIFF FLAG NO
[2023-09-29 11:33] LABS: Basophils Percent Auto 0.2 % (0-2); Hemoglobin 14.6 g/dl (14.0-18.0); Lymphocytes Absolute Auto 1.2 X10*3/uL (1.2-4.9); Mean Corpuscular HGB Conc 31.7 g/dl (31.0-36.0)
[2023-09-29 11:39] LABS: Eosinophils Percent Auto 0.2 % (0-4); Hematocrit 46.1 % (42.0-52.0); Imm Gran Abs Auto 0.02 X10*3/uL (0.00-0.03); Imm Gran Pct Auto 0.4 % (0.0-0.4); Lymphocytes Percent Auto 22.1 % (20-40); Mean Corpuscular Hemoglobin 30.4 pg (27.0-33.0); Mean Corpuscular Volume 95.8 fL (80.0-98.0); Mean Platelet Volume 11.3 fL (9.4-12.4); Monocytes Absolute Auto 0.4 X10*3/uL (0.1-1.2); Monocytes Percent Auto 6.6 % (2-11); Neutrophils Absolute Auto 3.9 x10*3/uL (2.0-8.3); Neutrophils Percent Auto 70.5 % (45-73); Platelet Count 235 X10*3/uL (160-400); Red Blood Count 4.81 X10*6/uL (4.60-5.80); Red Cell Distribution Width 14.2 % (11.0-16.0)
[2023-09-29 11:44] LABS: White Blood Count 5.5 X10*3/uL (4.8-10.8)
[2023-09-29 11:53] LABS: Anion Gap 12 (12-20); Blood Urea Nitrogen 16 mg/dL (9-16); Calcium 9.7 mg/dL (8.4-10.2); Carbon Dioxide 30 mmol/L (22-29); Chloride 106 mmol/L (96-108); Estimated Glomerular Filt Rate > 60; Glucose Random 107 mg/dL (60-115); Potassium 4.6 mmol/L (3.3-5.1); Sodium 143 mmol/L (135-145)
[2023-09-29 11:58] LABS: B Type Natriuretic Peptide 11 pg/mL (<100)
== END 2023-09-29 09:48 | disposition home or self-care (01) ==
LOC: HO.LAB 09:47
PROVIDERS: PCP Internal Medicine; Visit Provider Internal Medicine Pulmonary Disease
DX: R05.3 Chronic cough (principal); R06.09 Other forms of dyspnea; J44.1 Chronic obstructive pulmonary disease with (acute) exacerbation
CPT/HCPCS: 36415; 71046; 80048; 83880; 85025

== ENCOUNTER 2023-09-29 09:47 | Outpatient (AMB) | payer OTHER, SELFPAY ==
--- NOTE | 2023-09-29 09:52 | MHC.OFFVIS ---
Intake Vital Signs 09/29/23 10:06 Weight 219 lb 5.759 oz BP 122/68 Blood Pressure Location Lt brachial Position Sitting Pulse 86 Pulse Source Doppler Pulse Oximetry (%) 92 Oxygen Delivery Method Room Air Intake Visit Reasons: Sick visit Allergies No Known Allergies Allergy (Verified 09/29/23 10:09) HPI Sick visit HPI Details 58-year-old gentleman, active 40+ pack-year smoker, followed for moderate asthma/ COPD overlap syndrome and cough.Patient has been hospitalized at [facility] for bilateral pleural effusions with unclear etiology. His rheumatologic, cardiac, and pulmonary workup was negative. He cannot afford Stiolto or Anoro and has been using duo nebs. Continues to complain of dyspnea with intermittent bouts of bronchitic symptoms med that respond poorly to courses of antibiotics and prednisone. He has been tried on diuretic with no significant changes in his symptoms. He only derives symptomatic benefit from using duo nebs, however it only lasts for several hours between treatments. Patient has been evaluated by Cardiology and now undergoes further testing. He also has had two right-sided thoracentesis, initially with drainage of approximately 900 cc of simple fluid with improvement in his dyspnea. Then patient had COVID requiring brief hospitalization at [facility], after which he developed cough with worsening phlegm and he had a 2nd right-sided thoracentesis, at this time with drainage of only 10 cc of chronic transudative with negative cultures. His sputum cultures have been growing Pseudomonas. After the last office visit patient patient started developed worsening dyspnea on exertion and mildly productive cough. [facility] Medical History (Updated 09/29/23 @ 14:42 by Luis M Long MD) COPD (chronic obstructive pulmonary disease) PICC (peripherally inserted central catheter) in place Fatigue Splenomegaly ETOH abuse Anemia with low platelet count Pulmonary nodules Surgical History (Updated 09/11/23 @ 00:04 by Daniel Kevin) Status post left rotator cuff repair (07/15/23) History of thoracentesis Hx of repair of right rotator cuff (10/25/20) History of colonoscopy History of liver biopsy Family History Father Stroke Mother Cancer Social History Household Members: Spouse Housing: House Do you presently have visiting nurse or other home services: No Patient Tobacco Use Status: Former Tobacco user Quit Date: one year ago Cigarettes Per Day: 10 Years Smoked: 35 yrs Advance Directives Date on File: 09/07/23 service: No Current occupational status: employed 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 Review of Systems Const Denies daytime sleepiness, Denies excessive sweating, Denies fatigue, Denies fever(s), Denies lethargy, Denies malaise, Denies night sweats, Denies snoring and Denies weight loss Eyes Denies blurry vision and Denies itchy eyes ENT Denies nasal congestion, Denies post nasal drip, Denies sinus pain, Denies sinus pressure and Denies other ( Thrush) Card Denies chest pain, Denies pedal edema, Denies dyspnea, Reports dyspnea on exertion, Denies orthopnea and Denies paroxysmal nocturnal dyspnea Resp Reports cough, Denies hemoptysis, Reports excessive phlegm production, Denies dyspnea, Reports dyspnea on exertion, Denies snoring and Denies wheezing GI Denies abdominal pain and Denies heartburn Musc Denies myalgias, Denies arthralgias and Denies joint swelling Skin/Breast Denies rash Neuro Denies memory loss and Denies seizure-like activity Psych Denies abnormal sleep pattern, Denies anxiety and Denies memory loss Endo Denies excessive sweating, Denies fatigue and Denies heat intolerance Rohit/Lymph Denies easy bruising Aller/Immun Denies itchy eyes, Denies seasonal rhinorrhea and Denies wheezing Physical Exam Vital Signs: Last Vital Signs Pulse 86 09/29/23 10:06 BP 122/68 09/29/23 10:06 Pulse Ox 92 09/29/23 10:06 Oxygen Delivery Method Room Air 09/29/23 10:06 Const General: no acute distress and alert Nutritional Appearance: not obese Orientation/consciousness: Other orientation findings ( oriented) HEENT Head: Yes atraumatic Eyes General: appearance normal, both eyes and all related structures Sclerae: sclerae normal EOM: EOMs intact bilaterally Neck Neck: Yes supple Lymphatic: no lymphadenopathy noted Resp Effort & Inspection: normal respiratory effort and no use of accessory muscles Auscultation: clear to auscultation bilaterally Cardio Rate: regular rate Rhythm: regular rhythm Heart sounds: no gallops, no murmurs and no rubs Skin General skin exam: other ( warm) Extrem General: No clubbing, No cyanosis and No edema Assessment & Plan Assessment & Plan (1) PRUITT (dyspnea on exertion): Code(s): R06.09 - Other forms of dyspnea Plan: Now with worsening dyspnea on exertion, increased weight, and chest x-ray with signs of pulmonary edema. Will empirically decrease Bumex to twice a day and reassess symptoms in 72 hours. (2) COPD (chronic obstructive pulmonary disease): Code(s): J44.9 - Chronic obstructive pulmonary disease, unspecified Qualifiers: COPD type: COPD with acute exacerbation Qualified Code(s): J44.1 - Chronic obstructive pulmonary disease with (acute) exacerbation Plan: Baseline stable on regimen of trilogy and albuterol MDI/nebs. Continue current regimen. Orders: Orders Complete Blood Count Auto Diff Today R05.3 - Chronic cough B Type Natriuretic Peptide Today R05.3 - Chronic cough Basic Metabolic Panel Today R05.3 - Chronic cough XR chest 2V Today R05.3 - Chronic cough Coding Level of Care Code Est Pt Level 4 (72307) Diagnoses PRUITT (dyspnea on exertion) R06.09 COPD (chronic obstructive pulmonary disease) J44.1 COPD type: COPD with acute exacerbation
[2023-09-29 10:06] VITALS: BP 122/68; PULSE 86; O2SAT 92
== END 2023-09-29 10:35 | disposition home or self-care (01) ==
PROVIDERS: PCP Internal Medicine; Visit Provider Internal Medicine Pulmonary Disease
DX: R06.09 Other forms of dyspnea (principal); J44.1 Chronic obstructive pulmonary disease with (acute) exacerbation
CPT/HCPCS: 99214

== ENCOUNTER 2023-10-12 10:05 | Outpatient (AMB) | payer OTHER, SELFPAY ==
--- NOTE | 2023-10-12 08:25 | A.OFFVIS_ITS ---
Intake Intake Visit Reasons: PO LT shld RTC repair 07/15/23NE Intake Note: Talon is a 58 year old left hand dominant male who presents to the office today for a PO LT shoulder RTC repair done on 07/15/23. Pt states his shoulder is still painful and it is worse at night. Pt states that most of the pain is after physical therapy. Pt states that he tries using ice for the pain but it doesn't really help. Accompanied by: Spouse Allergies No Known Allergies Allergy (Verified 10/12/23 10:10) HPI PO LT shld RTC repair 07/15/23NE HPI Details 3 months s/p left RTC repair He says he is doing okay, but he continues to have pain in his shoulder. His pain primarily occurs following PT, but also worsens at night. He has tried icing, without relief. [facility] Medical History COPD (chronic obstructive pulmonary disease) PICC (peripherally inserted central catheter) in place Fatigue Splenomegaly ETOH abuse Anemia with low platelet count Pulmonary nodules Surgical History Status post left rotator cuff repair (07/15/23) History of thoracentesis Hx of repair of right rotator cuff (10/25/20) History of colonoscopy History of liver biopsy Family History Father Stroke Mother Cancer Social History Household Members: Spouse Housing: House Do you presently have visiting nurse or other home services: No Patient Tobacco Use Status: Former Tobacco user Quit Date: one year ago Cigarettes Per Day: 10 Years Smoked: 35 yrs Advance Directives Date on File: 09/07/23 service: No Current occupational status: employed 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 Review of Systems Const All systems reviewed & are unremarkable except as noted in HPI and below Physical Exam Const General: no acute distress, alert and awake Orientation/consciousness: patient oriented x3 HEENT Head: Yes normocephalic and Yes atraumatic Eyes EOM: EOMs intact bilaterally Resp Effort & Inspection: normal respiratory effort and able to speak in complete sentences Cardio Jugular venous distension: no JVD Skin General skin exam: turgor normal Rashes: no rashes Neuro General: patient oriented x3 Extrem Other: 5 deg ER Portals c/d/i Psych Appearance: grossly normal Affect: normal affect Attitude: cooperative Assessment & Plan Assessment & Plan (1) Status post left rotator cuff repair: Onset Date: 07/15/23 Comment: 07/15/2023 NE Code(s): Z98.890 - Other specified postprocedural states Plan: 3 months s/p left RTC repair. Stiff in ER. Change PT. f/u 4 weeks. Tramadol for night pain. Plan Prepared for Giacomo Borden MD by Jair Lala, medical administrative specialist, on 10/12/23 at 8:57 AM, EST. Orders: Orders PT Evaluation and Treatment Today Z98.890 - Other specified postprocedural states Coding Level of Care Code Global (44274) Diagnoses Status post left rotator cuff repair Z98.890
== END 2023-10-12 10:31 | disposition home or self-care (01) ==
PROVIDERS: PCP Internal Medicine; Visit Provider Orthopaedic Surgery
DX: Z98.890 Other specified postprocedural states (principal)
CPT/HCPCS: 99024

== ENCOUNTER → 2023-10-12 10:05 | Outpatient (BNVA) | payer OTHER, SELFPAY | PROVIDERS: PCP Internal Medicine; Visit Provider Orthopaedic Surgery ==

== ENCOUNTER 2023-10-14 10:35 | Outpatient (REF) | payer OTHER, SELFPAY ==
--- NOTE | ~2023-10-14 | XR_ITS ---
EXAMINATION: XR CHEST CLINICAL INFORMATION: Other forms of dyspnea. COMPARISON: Chest radiograph 09/29/2023. CT chest 09/07/2023. TECHNIQUE: 2 views of the chest were obtained. FINDINGS: Heart size is again noted to be normal. Bilateral small pleural effusions are present with an increase in size of the effusion on the right. Persistent mild increased interstitial markings. Bibasilar atelectasis is present. No interval change in the chronic increased interstitial markings. XR/XR chest 2V IMPRESSION: Bilateral pleural effusions with increase in size of right pleural effusion.
== END 2023-10-14 10:36 | disposition home or self-care (01) ==
LOC: HO.XRAY 10:35
PROVIDERS: PCP Internal Medicine; Visit Provider Internal Medicine Pulmonary Disease
DX: R06.09 Other forms of dyspnea (principal)
CPT/HCPCS: 71046

== ENCOUNTER 2023-10-14 10:35 | Outpatient (AMB) | payer OTHER, SELFPAY ==
--- NOTE | 2023-10-14 10:40 | MHC.OFFVIS ---
Intake Vital Signs 10/14/23 10:42 Weight 219 lb BP 122/78 Blood Pressure Location Rt brachial Position Sitting Pulse 96 Pulse Source Doppler Pulse Oximetry (%) 95 Oxygen Delivery Method Room Air Intake Visit Reasons: Reaction to antibiotic Allergies No Known Allergies Allergy (Verified 10/14/23 10:45) HPI Reaction to antibiotic HPI Details 58-year-old gentleman, active 40+ pack-year smoker, followed for moderate asthma/ COPD overlap syndrome and cough.Patient has been hospitalized at [facility] for bilateral pleural effusions with unclear etiology. His rheumatologic, cardiac, and pulmonary workup was negative. He cannot afford Stiolto or Anoro and has been using duo nebs. Continues to complain of dyspnea with intermittent bouts of bronchitic symptoms med that respond poorly to courses of antibiotics and prednisone. He has been tried on diuretic with no significant changes in his symptoms. He only derives symptomatic benefit from using duo nebs, however it only lasts for several hours between treatments. Patient has been evaluated by Cardiology and now undergoes further testing. He also has had two right-sided thoracentesis, initially with drainage of approximately 900 cc of simple fluid with improvement in his dyspnea. Then patient had COVID requiring brief hospitalization at [facility], after which he developed cough with worsening phlegm and he had a 2nd right-sided thoracentesis, at this time with drainage of only 10 cc of chronic transudative with negative cultures. His sputum cultures have been growing Pseudomonas. After the last office visit patient patient started developed worsening dyspnea on exertion and mildly productive cough. He was treated with a course of Levaquin with improvement his cough, however his dyspnea is worsening and his chest x-ray today demonstrates recurrent right-sided pleural effusion PFSH Medical History COPD (chronic obstructive pulmonary disease) PICC (peripherally inserted central catheter) in place Fatigue Splenomegaly ETOH abuse Anemia with low platelet count Pulmonary nodules Surgical History Status post left rotator cuff repair (07/15/23) History of thoracentesis Hx of repair of right rotator cuff (10/25/20) History of colonoscopy History of liver biopsy Family History Father Stroke Mother Cancer Social History Household Members: Spouse Housing: House Do you presently have visiting nurse or other home services: No Patient Tobacco Use Status: Former Tobacco user Quit Date: one year ago Cigarettes Per Day: 10 Years Smoked: 35 yrs Advance Directives Date on File: 09/07/23 service: No Current occupational status: employed 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 Review of Systems Const Denies daytime sleepiness, Denies excessive sweating, Denies fatigue, Denies fever(s), Denies lethargy, Denies malaise, Denies night sweats, Denies snoring and Denies weight loss Eyes Denies blurry vision and Denies itchy eyes ENT Denies nasal congestion, Denies post nasal drip, Denies sinus pain, Denies sinus pressure and Denies other ( Thrush) Card Denies chest pain, Denies pedal edema, Denies dyspnea, Reports dyspnea on exertion, Denies orthopnea and Denies paroxysmal nocturnal dyspnea Resp Denies cough, Denies hemoptysis, Denies excessive phlegm production, Denies dyspnea, Reports dyspnea on exertion, Denies snoring and Denies wheezing GI Denies abdominal pain and Denies heartburn Musc Denies myalgias, Denies arthralgias and Denies joint swelling Skin/Breast Denies rash Neuro Denies memory loss and Denies seizure-like activity Psych Denies abnormal sleep pattern, Denies anxiety and Denies memory loss Endo Denies excessive sweating, Denies fatigue and Denies heat intolerance Rohit/Lymph Denies easy bruising Aller/Immun Denies itchy eyes, Denies seasonal rhinorrhea and Denies wheezing Physical Exam Vital Signs: Last Vital Signs Pulse 96 10/14/23 10:42 BP 122/78 10/14/23 10:42 Pulse Ox 95 10/14/23 10:42 Oxygen Delivery Method Room Air 10/14/23 10:42 Const General: no acute distress and alert Nutritional Appearance: not obese Orientation/consciousness: Other orientation findings ( oriented) HEENT Head: Yes atraumatic Eyes General: appearance normal, both eyes and all related structures Sclerae: sclerae normal EOM: EOMs intact bilaterally Neck Neck: Yes supple Lymphatic: no lymphadenopathy noted Resp Effort & Inspection: normal respiratory effort and no use of accessory muscles Auscultation: crackles (Right basilar) Cardio Rate: regular rate Rhythm: regular rhythm Heart sounds: no gallops, no murmurs and no rubs Skin General skin exam: other ( warm) Extrem General: No clubbing, No cyanosis and No edema Assessment & Plan Assessment & Plan (1) COPD (chronic obstructive pulmonary disease): Code(s): J44.9 - Chronic obstructive pulmonary disease, unspecified Qualifiers: COPD type: COPD with acute exacerbation Qualified Code(s): J44.1 - Chronic obstructive pulmonary disease with (acute) exacerbation Plan: Baseline controlled on Trelegy and albuterol MDI. Continue current regimen. (2) Recurrent pleural effusion on right: Code(s): J90 - Pleural effusion, not elsewhere classified Plan: Recurrent right-sided pleural effusion. Will request right-sided thoracentesis and pleural status. Will obtain further immunologic/inflammatory workup. Orders: Orders pH Pleural Fluid Today J90 - Pleural effusion, not elsewhere classified LDH Pleural Fluid Today J90 - Pleural effusion, not elsewhere classified Glucose Pleural Fluid Today J90 - Pleural effusion, not elsewhere classified Cell Count w Diff Pleural Fld Today J90 - Pleural effusion, not elsewhere classified Albumin Pleural Fluid Today J90 - Pleural effusion, not elsewhere classified Cytology Today J90 - Pleural effusion, not elsewhere classified C Reactive Protein Today J90 - Pleural effusion, not elsewhere classified Immunoglobulins,IgG IgA IgM Today J90 - Pleural effusion, not elsewhere classified Erythrocyte Sedimentation Rate Today J90 - Pleural effusion, not elsewhere classified XR chest 2V Today R06.09 - Other forms of dyspnea US drain thoracentesis Today J90 - Pleural effusion, not elsewhere classified Total Protein Pleural Fluid Today J90 - Pleural effusion, not elsewhere classified Amylase Pleural Fluid Today J90 - Pleural effusion, not elsewhere classified Lactate Dehydrogenase Today J90 - Pleural effusion, not elsewhere classified Total Protein Today J90 - Pleural effusion, not elsewhere classified Albumin Level Today J90 - Pleural effusion, not elsewhere classified Routine Culture w Gram Stain Today J90 - Pleural effusion, not elsewhere classified Coding Level of Care Code Est Pt Level 4 (05659) Diagnoses COPD (chronic obstructive pulmonary disease) J44.1 COPD type: COPD with acute exacerbation Recurrent pleural effusion on right J90
[2023-10-14 10:42] VITALS: BP 122/78; PULSE 96; O2SAT 95
== END 2023-10-14 10:52 | disposition home or self-care (01) ==
PROVIDERS: PCP Internal Medicine; Visit Provider Internal Medicine Pulmonary Disease
DX: J44.1 Chronic obstructive pulmonary disease with (acute) exacerbation (principal); J90 Pleural effusion, not elsewhere classified
CPT/HCPCS: 99214

== ENCOUNTER 2023-10-20 06:57 | Day surgery (SDC) | payer OTHER, SELFPAY ==
--- NOTE | ~2023-10-20 | US_ITS ---
PROCEDURE: Ultrasound-guided right thoracentesis HISTORY: Right pleural effusion SPECIMEN: A sample of pleural fluid was sent for analysis ACCESS: 5 [place] Yueh catheter MEDICATIONS: 10 mL 1% lidocaine TECHNIQUE/FINDINGS Appropriate preprocedural clinical history and imaging studies were reviewed. The patient was brought to the department and placed in the seated position. Ultrasound images of the right thorax were obtained to localize a moderate pleural effusion. Permanent ultrasound images were saved. Risks and benefits and possible complications were discussed with the patient and consent form was signed. An area of the patient's right back was prepped and draped in usual sterile fashion. 10 mL of 1% lidocaine was used to obtain local anesthesia of the skin and deeper tissues. A standard small bore needle was introduced to sample pleural fluid and demonstrate a safe access route. A 5 [place] Yueh catheter was then used to access the pleural cavity. 1.0 liters of cloudy yellow fluid was removed passively. The catheter was then removed. A dressing was applied. A postprocedure chest x-ray will be performed and will be dictated separately. There were no immediate complications. The procedure was performed by Dimas Miranda PA-C and supervised by Dr. Craven US/US thoracentesis IMPRESSION: Successful Ultrasound-guided right thoracentesis.
--- NOTE | ~2023-10-20 | XR_ITS ---
EXAMINATION: XR CHEST CLINICAL INFORMATION: Status post right-sided thoracentesis COMPARISON: 10/14/2023 TECHNIQUE: Frontal view of the chest was obtained. FINDINGS: Since the prior study the patient has undergone a right-sided thoracentesis with decrease in size of the right pleural effusion. There is no pneumothorax. Tiny bilateral pleural effusions remain. Basilar atelectasis is seen along with minimally prominent interstitial markings similar to prior. Heart size is normal. XR/XR chest 1V IMPRESSION: No pneumothorax status post right-sided thoracentesis.
[2023-10-20 08:08] VITALS: BMI 28.5
[2023-10-20 09:20] VITALS: BP 124/82; PULSE 71; RESP 19; TEMP 36.9; O2SAT 94
[2023-10-20] MEDS: Lidocaine HCl 1 % MPF 5 ML VIAL SUBCUT (10:26)
== END 2023-10-20 09:28 | disposition home or self-care (01) ==
PROVIDERS: Physician Assistant Surgical; PCP Internal Medicine; Visit Provider Internal Medicine Pulmonary Disease
DX: J90 Pleural effusion, not elsewhere classified (principal); J44.1 Chronic obstructive pulmonary disease with (acute) exacerbation; D69.6 Thrombocytopenia, unspecified; Z87.891 Personal history of nicotine dependence
CPT/HCPCS: 32555; 71045

== ENCOUNTER → 2023-10-20 08:28 | Outpatient (BNV) | payer OTHER, SELFPAY | PROVIDERS: PCP Internal Medicine; Visit Provider Physician Assistant Surgical | DX: J90 Pleural effusion, not elsewhere classified (principal) | CPT/HCPCS: 32555 ==

== ENCOUNTER 2023-10-23 10:45 | Outpatient (REF) | payer OTHER, SELFPAY ==
[2023-10-23 12:28] LABS: Erythrocyte Sedimentation Rate 25 MM/HR (0-15)
[2023-10-23 12:53] LABS: Albumin Level 4.2 g/dL (3.5-5.0); C Reactive Protein 0.32 mg/dL (< or = 0.50); Lactate Dehydrogenase 203 U/L (118-273); Total Protein 6.8 g/dL (6.5-8.0)
[2023-10-26 09:23] LABS: IgA 76 mg/dL (47-310); IgG 459 mg/dL (600-1640); IgM 522 mg/dL (50-300)
== END 2023-10-23 10:46 | disposition home or self-care (01) ==
LOC: HO.LAB 10:45
PROVIDERS: PCP Internal Medicine; Visit Provider Internal Medicine Pulmonary Disease
DX: J90 Pleural effusion, not elsewhere classified (principal)
CPT/HCPCS: 36415; 82040; 82784; 83615; 84155; 85652; 86140

== ENCOUNTER 2023-11-03 13:47 | Outpatient (AMB) | payer OTHER, SELFPAY ==
[2023-11-03 13:59] VITALS: BP 118/67; PULSE 113; O2SAT 87; BMI 28.4
--- NOTE | 2023-11-03 13:59 | A.OFFVIS_ITS ---
Intake Vital Signs 11/03/23 13:59 Height 6 ft 2 in Weight 221 lb 9.033 oz BMI 28.4 BP 118/67 Blood Pressure Location Lt brachial Position Sitting Pulse 113 H Pulse Oximetry (%) 87 L Oxygen Delivery Method Room Air Intake Visit Reasons: plueral effusion Allergies No Known Allergies Allergy (Verified 11/03/23 14:01) HPI plueral effusion HPI Details 58-year-old gentleman, active 40+ pack-y ear smoker, followed for moderate asthma/ COPD overlap syndrome and cough.Patient has been hospitalized at [facility] for bilateral pleural effusions with unclear etiology. His rheumatologic, cardiac, and pulmonary workup was negative. He cannot afford Stiolto or Anoro and has been using duo nebs. Continues to complain of dyspnea with intermittent bouts of bronchitic symptoms med that respond poorly to courses of antibiotics and prednisone. He has been tried on diuretic with no significant changes in his symptoms. He only derives symptomatic benefit from using duo nebs, however it only lasts for several hours between treatments. Patient has been evaluated by Cardiology and now undergoes further testing. He also has had two right-sided thoracentesis, initially with drainage of approximately 900 cc of simple fluid with improvement in his dyspnea. Then patient had COVID requiring brief hospitalization at [facility], after which he developed cough with worsening phlegm and he had a 2nd right- sided thoracentesis, at this time with drainage of only 10 cc of chronic transudative with negative cultures. His sputum cultures have been growing Pseudomonas. After the last office visit patient had another right-sided thoracentesis with drainage of approximately 1 L of pleural fluid. He did feel well for paroxysmally awakened over the last week he started developing worsening dyspnea. Today at the office visit patient is hypoxic at rest and requiring up to 3 L supplemental oxygen to maintain normal oximetry. He is also complain of worsening cough and shaking chills. Also his immunologic workup shows significant decrease in IgG level. [facility] Medical History COPD (chronic obstructive pulmonary disease) PICC (peripherally inserted central catheter) in place Fatigue Splenomegaly ETOH abuse Anemia with low platelet count Pulmonary nodules Surgical History Status post left rotator cuff repair (07/15/23) History of thoracentesis Hx of repair of right rotator cuff (10/25/20) History of colonoscopy History of liver biopsy Family History Father Stroke Mother Cancer Social History Household Members: Spouse Housing: House Do you presently have visiting nurse or other home services: No Patient Tobacco Use Status: Former Tobacco user Quit Date: one year ago Cigarettes Per Day: 10 Years Smoked: 35 yrs Advance Directives Date on File: 09/07/23 service: No Current occupational status: employed 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 Review of Systems Const Denies daytime sleepiness, Denies excessive sweating, Denies fatigue, Denies fever(s), Denies lethargy, Denies malaise, Denies night sweats, Denies snoring and Denies weight loss Eyes Denies blurry vision and Denies itchy eyes ENT Denies nasal congestion, Denies post nasal drip, Denies sinus pain, Denies sinus pressure and Denies other ( Thrush) Card Denies chest pain, Reports pedal edema, Denies dyspnea, Reports dyspnea on exertion, Denies orthopnea and Denies paroxysmal nocturnal dyspnea Resp Reports cough, Denies hemoptysis, Reports excessive phlegm production, Denies dyspnea, Reports dyspnea on exertion, Denies snoring and Denies wheezing GI Denies abdominal pain and Denies heartburn Musc Denies myalgias, Denies arthralgias and Denies joint swelling Skin/Breast Denies rash Neuro Denies memory loss and Denies seizure-like activity Psych Denies abnormal sleep pattern, Denies anxiety and Denies memory loss Endo Denies excessive sweating, Denies fatigue and Denies heat intolerance Rohit/Lymph Denies easy bruising Aller/Immun Denies itchy eyes, Denies seasonal rhinorrhea and Denies wheezing Physical Exam Vital Signs: Last Vital Signs Pulse 113 H 11/03/23 13:59 BP 118/67 11/03/23 13:59 Pulse Ox 87 L 11/03/23 13:59 Oxygen Delivery Method Room Air 11/03/23 13:59 BMI result Body Mass Index 28.4 Const General: no acute distress and alert Nutritional Appearance: not obese Orientation/consciousness: Other orientation findings ( oriented) HEENT Head: Yes atraumatic Eyes General: appearance normal, both eyes and all related structures Sclerae: sclerae normal EOM: EOMs intact bilaterally Neck Neck: Yes supple Lymphatic: no lymphadenopathy noted Resp Effort & Inspection: normal respiratory effort and no use of accessory muscles Auscultation: crackles (Mild bilateral) Cardio Rate: regular rate Rhythm: regular rhythm Heart sounds: no gallops, no murmurs and no rubs Skin General skin exam: other ( warm) Extrem General: No clubbing, No cyanosis and No edema Assessment & Plan Assessment & Plan (1) PRUITT (dyspnea on exertion): Code(s): R06.09 - Other forms of dyspnea Plan: Now with an acute exacerbation requiring supplemental oxygen up to 3 L. Will refer to ER for further evaluation. (2) Recurrent pleural effusion on right: Code(s): J90 - Pleural effusion, not elsewhere classified Plan: Status post right-sided thoracentesis with drainage of another 1 L of pleural fluid. Unfortunately pleural studies were not sent, though they were ordered. (3) COPD (chronic obstructive pulmonary disease): Code(s): J44.9 - Chronic obstructive pulmonary disease, unspecified Qualifiers: COPD type: COPD with acute exacerbation Qualified Code(s): J44.1 - Chronic obstructive pulmonary disease with (acute) exacerbation Plan: Baseline controlled on Trelegy and albuterol MDI. Continue current regimen. 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 Coding Level of Care Code Est Pt Level 5 (39474) Diagnoses PRUITT (dyspnea on exertion) R06.09 Recurrent pleural effusion on right J90 COPD (chronic obstructive pulmonary disease) J44.1 COPD type: COPD with acute exacerbation IgG deficiency D80.3
[2023-11-03 15:27] VITALS: PULSE 115; O2SAT 90
== END 2023-11-03 14:47 | disposition home or self-care (01) ==
PROVIDERS: PCP Internal Medicine; Visit Provider Internal Medicine Pulmonary Disease
DX: J44.1 Chronic obstructive pulmonary disease with (acute) exacerbation (principal); J90 Pleural effusion, not elsewhere classified; D80.3 Selective deficiency of immunoglobulin G [IgG] subclasses
CPT/HCPCS: 94618; 99214

== ENCOUNTER → 2023-11-03 13:47 | Outpatient (BNVA) | payer OTHER, SELFPAY | PROVIDERS: PCP Internal Medicine; Visit Provider Internal Medicine Pulmonary Disease ==

== ENCOUNTER 2023-11-03 14:32 | Inpatient (IN) | payer OTHER, SELFPAY ==
[2023-11-03] VITALS (8 sets, daily range): BP systolic 120–133; BP diastolic 57–81; PULSE 104–121; RESP 13–20; TEMP 37.1–37.5; O2SAT 92–95; BMI 29.8
--- NOTE | 2023-11-03 | ECG_ITS ---
Test Reason : TACHYCARDIA Blood Pressure : / mmHG Vent. Rate : 130 BPM Atrial Rate : 130 BPM P-R Int : 104 ms QRS Dur : 138 ms QT Int : 346 ms P-R-T Axes : -25 -81 036 degrees QTc Int : 509 ms Sinus tachycardia with short IA Right bundle branch block Left anterior fascicular block Bifascicular block Abnormal ECG When compared with ECG of 03-NOV-2023 15:30, No significant change was found Referred By: Nuno Ambrosio Electronically Signed By:BALTAZAR DE LEON
--- NOTE | ~2023-11-03 | CT_ITS ---
EXAMINATION: CT CHEST WITHOUT CONTRAST CLINICAL INFORMATION: Hypoxia COMPARISON: Chest radiograph from 11/03/2023, CT chest from 09/07/2023 TECHNIQUE: Multidetector volumetric CT imaging of the chest was done. Axial MIP volume rendering provided. Sagittal and coronal reformatted images were obtained. This CT examination was performed using dose optimization techniques as appropriate, variously including the following: *Automated exposure control *Adjustment of mA and/or kV according to patient size (this includes techniques or standardized protocols for targeted exams where dose is matched to indication/reason for exam; i.e. extremities or head) *Use of iterative reconstruction technique DLP: 439 mGy-cm FINDINGS: LUNGS/PLEURA: Small right pleural effusion with subjacent atelectasis. Emphysematous changes. Biapical pleural parenchymal scarring. Peripheral reticular nodular opacities. Bilateral bronchial thickening and groundglass opacities in the right lung field and left lower lobe which can be seen in setting of infectious/inflammatory etiology. Redemonstrated tree-in-bud nodularity of the bilateral lower lobes, left greater than right. Stable pulmonary nodules for example a 3 mm nodule in the midportion left upper lobe (series 5, image 122). No new enlarged or suspicious pulmonary nodules or masses are noted. Central airways are patent. No pneumothorax. MEDIASTINUM: Heart is not enlarged. Trace pericardial effusion. Coronary artery calcifications are noted. Aneurysmal dilatation of the ascending aorta at the level artery measuring 4.3 cm. The descending aorta at this level measures 3.1 cm. Atherosclerotic calcifications aortic arch. Main pulmonary artery is enlarged. A few mildly prominent though nonenlarged mediastinal lymph nodes are noted. Visualized portions of the thyroid are unremarkable. AXILLA: No lymphadenopathy. UPPER ABDOMEN: Small hiatal hernia. Borderline enlargement of the spleen measuring 13.4 cm. Trace fluid noted in the mesentery. A few mildly prominent mesenteric lymph nodes are noted. OSSEOUS STRUCTURES: Multilevel degenerative changes of the thoracolumbar spine with anterior bridging osteophytes CT/CT chest wo IV con IMPRESSION: 1. Small right pleural effusion with subjacent atelectasis. 2. Bilateral bronchial thickening and groundglass opacities in the right lung field and left lower lobe which can be seen in setting of infectious/inflammatory etiology. Redemonstrated tree-in-bud nodularity of the bilateral lower lobes, left greater than right. 3. Stable pulmonary nodules measuring up to 3 mm.No new enlarged or suspicious pulmonary nodules or masses are noted. Continued follow-up as per Fleischner criteria. 4. Aneurysmal dilatation of the ascending aorta at the level of the main pulmonary artery measuring 4.3 cm. 5. Small hiatal hernia. 6. Borderline enlargement of the spleen measuring 13.4 cm. 7. Trace fluid noted in the mesentery. A few mildly prominent mesenteric lymph nodes are noted. Various management parameters for solitary pulmonary nodules are in the literature. According to the Fleischner Society, recommendations for pulmonary nodules are as follows: According to the UPDATED 2017 Fleischner Society recommendations, the advised follow-up imaging for solid nodules < 6 mm is: HIGH RISK PATIENT: Optional CT at 12 months.
--- NOTE | ~2023-11-03 | US_ITS ---
PROCEDURE: Ultrasound-guided right thoracentesis HISTORY: Right pleural effusion SPECIMEN: A sample of pleural fluid was sent for analysis ACCESS: 5 Malaysian Yueh catheter MEDICATIONS: 10 mL 1% lidocaine TECHNIQUE/FINDINGS Appropriate preprocedural clinical history and imaging studies were reviewed. The patient was brought to the department and placed in the seated position. Ultrasound images of the right thorax were obtained to localize a moderate pleural effusion. Permanent ultrasound images were saved. Risks and benefits and possible complications were discussed with the patient and consent form was signed. An area of the patient's right back was prepped and draped in usual sterile fashion. 10 mL of 1% lidocaine was used to obtain local anesthesia of the skin and deeper tissues. A standard small bore needle was introduced to sample pleural fluid and demonstrate a safe access route. A 5 Malaysian Yueh catheter was then used to access the pleural cavity. 1.0 liters of cloudy yellow fluid was removed passively. The catheter was then removed. A dressing was applied. A postprocedure chest x-ray will be performed and will be dictated separately. There were no immediate complications. US/US thoracentesis IMPRESSION: Successful Ultrasound-guided right thoracentesis.
--- NOTE | ~2023-11-03 | XR_ITS ---
EXAMINATION: XR CHEST CLINICAL INFORMATION: Hypoxia COMPARISON: None available. TECHNIQUE: 2 views of the chest were obtained. FINDINGS: The lungs are well-expanded with blunting of right CP angle from pleural effusion and underlying atelectasis. There is increased pulmonary vascularity throughout both lungs likely pulmonary volume overload. Heart size is borderline normal. There is mild spondylosis dorsal spine. No aggressive lytic or sclerotic process seen. XR/XR chest 2V IMPRESSION: 1. Small right pleural effusion with underlying atelectasis. 2. Mild pulmonary vascular congestion. 3. Mild spondylosis dorsal spine.
--- NOTE | 2023-11-03 14:42 | ED.GENADULT ---
HPI - General Adult General Chief complaint: Dyspnea Stated complaint: Low O2 Increased Heartrate Time Seen by Provider: 11/03/23 15:08 History of Present Illness HPI narrative: 58 y/o M patient; PMH IgG deficiency, recurrent right sided pleural effusion (s/p multiple thoracentesis with chronic transudative fluid), COPD, splenomegaly, hx EtOH abuse; presents from Dr. Long (pulmonology) office with report of recent increased shortness of breath associated with right-sided chest pain, cough, and subjective fevers. The patient denies:nausea/vomiting, abdominal pain. Related Data Previous Rx's Medication Instructions Recorded albuterol sulfate 2.5 mg/3 mL 2.5 mg (3 mL) inhalation Q4-6H PRN 02/09/23 (0.083 %) solution for nebulization shortness of breath or wheezing 30 days #360 mL bumetanide 1 mg tablet 1 mg PO DAILY #30 tabs 09/03/23 fluticasone fur. 100 mcg-umeclid 1 inh inhalation RDAILY #60 ea 09/09/23 62.5 mcg-vilant 25 mcg inhalat.powder (Trelegy Ellipta) oxycodone-acetaminophen 5 mg-325 1 tab PO Q6H PRN pain #28 tabs 09/18/23 mg tablet (Percocet) levofloxacin 750 mg tablet 750 mg PO Q24H #10 tabs 10/06/23 tramadol 50 mg tablet 50 mg PO BEDTIME PRN pain 20 days 10/12/23 #20 tabs Allergies Allergy/AdvReac Type Severity Reaction Status Date / Time No Known Allergies Allergy Verified 11/03/23 14:49 Review of Systems Review of Systems: Yes all other systems are reviewed and are negative FOR[facility]LY [facility] Past Medical History Attestation statement: The following information was validated with the patient. Source: old records reviewed Medical History COPD (chronic obstructive pulmonary disease) PICC (peripherally inserted central catheter) in place Fatigue Splenomegaly ETOH abuse Anemia with low platelet count Pulmonary nodules Surgical History Status post left rotator cuff repair (07/15/23) History of thoracentesis Hx of repair of right rotator cuff (10/25/20) History of colonoscopy History of liver biopsy Family History Family History Father Stroke Mother Cancer Social History Social History Household Members: Spouse Housing: House Do you presently have visiting nurse or other home services: No Patient Tobacco Use Status: Former Tobacco user Quit Date: one year ago Cigarettes Per Day: 10 Years Smoked: 35 yrs Smoked in Last 30 Days: No Use of substances other than those prescribed or required for medical reasons: No Advance Directives: Yes Advance Directives on File: Yes Advance Directives Date on File: 09/07/23 service: No Current occupational status: employed 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 Const General: cooperative HENMT Head: Yes atraumatic Eyes General: appearance normal, both eyes and all related structures Neck Neck: Yes normal visual inspection, Yes full ROM, Yes supple and No tender Chest Chest palpation & inspection: normal inspection of the chest and normal palpation of entire chest wall Resp Effort & Inspection: normal respiratory effort, able to speak in complete sentences, Actively coughing and no respiratory distress Auscultation: rhonchi and wheezes Cardio Rate: tachycardic Rhythm: regular rhythm Peripheral pulses: Peripheral pulses 2+ throughout GI Inspection: Yes normal to inspection, No Abdominal wall edema and No distended Palpation (GI): Soft to palpation, not firm, nontender, no guarding and not rigid Auscultation: normal bowel sounds Course Course Course Narrative: This is an RME: Additional HPI, ROS, PE not included below will be deferred to primary provider. This is a 58-year-old male, COPD, hx etoh abuse, splenomegaly, pulmonary nodules, hx pseudomonal pneumonia with recurrent pleural effusions who is a former smoker with 40+ pack year history presents to the ED earlier today with his , who assists with maldivian translation, for evaluation of fevers, sob, and productive cough. He was recently admitted for sepsis on 09/06/2023 due to pneumonia complicated by right pleural effusion and acute hypoxic respiratory failure. He was treated with O2 supplemental with IV antibiotics and Pulmonary evaluation. IR placed a chest tube and and drained approximately a 1.5 L, fluid analysis appear to be more transudative. states that patient also had chest tube placed 2 weeks ago and drained another 1L. Patient states that over the last week, developed chills, worsening shortness breath, cough. Patient was seen by Dr. Long of this morning, and called in and expect due to patient hypoxia, and requiring 3 L of supplemental O2 via nasal cannula. Reevaluation(s) Reevaluation #1: Patient is tachycardic with increased SpO2 requirement. Reviewed triage work up. Concern for pulmonary source of infection with COPD flare. Triage ordered LA and blood cultures. Ordered for IV antibiotics with Zosyn, Vancomycin and Azithromycin given patient's criteria as inpatient, severe, plus recent hospitalization and IV antibiotics in the previous 90 days with hx of pseudomonal pneumonia. Ordered ED Bronchodilator protocol and Solu-Medrol 125mg IV. Labs reviewed. Notable for leukocytosis. COVID/Flu/RSV negative. CXR with recurrent right sided pleural effusion. Plan: Admit to hospital for COPD exacerbation, pneumonia meeting SIRS criteria Condition: Stable Time: 15:19 Medications Administered Generic Name Dose Route Start Last Admin Trade Name Freq PRN Reason Stop Dose Admin Azithromycin 500 mg/ Sodium 250 mls @ 125 mls/hr 11/03/23 15:22 11/03/23 16:14 Chloride IV 11/03/23 17:21 125 mls/hr ONCE ONE Administration Discontinued Medications Generic Name Dose Route Start Last Admin Trade Name Freq PRN Reason Stop Dose Admin Albuterol Sulfate 5 mg/ 0 mg 11/03/23 16:13 11/03/23 16:25 Albuterol/Ipratropium 3 ml INHALE 11/03/23 16:14 1 each ONCE ONE Administration Piperacillin Sod/Tazobactam 50 mls @ 100 mls/hr 11/03/23 15:20 11/03/23 16:11 Sod 3.375 gm/ Sodium Chloride IV 11/03/23 15:49 100 mls/hr ONCE ONE Administration Methylprednisolone Sodium Succinate 125 mg 11/03/23 15:40 11/03/23 16:08 Methylprednisolone Sod Succ 125 Mg/2 Ml Vial IVPUSH 11/03/23 15:41 125 mg ONCE ONE Administration Medical Decision Making Lab Data 11/03/23 16:01 11/03/23 16:01 Labs: Lab Results 11/03/23 11/03/23 Range/Units 16:01 16:55 WBC 13.2 H (4.8-10.8) X10*3/uL RBC 5.12 (4.60-5.80) X10*6/uL Hgb 15.7 (14.0-18.0) g/dl Hct 48.3 (42.0-52.0) % MCV 94.3 (80.0-98.0) fL MCH 30.7 (27.0-33.0) pg MCHC 32.5 (31.0-36.0) g/dl RDW 14.1 (11.0-16.0) % Plt Count 258 (160-400) X10*3/uL MPV 10.8 (9.4-12.4) fL Immature Gran % (Auto) 0.6 H (0.0-0.4) % Neut % (Auto) 88.1 H (45-73) % Lymph % (Auto) 6.9 L (20-40) % [place] % (Auto) 4.2 (2-11) % Eos % (Auto) 0.0 (0-4) % Baso % (Auto) 0.2 (0-2) % Lymph # (Auto) 0.9 L (1.2-4.9) X10*3/uL [place] # (Auto) 0.6 (0.1-1.2) X10*3/uL Eos # (Auto) 0.0 (0.0-0.4) X10*3/uL Baso # (Auto) 0.0 (0.0-0.2) X10*3/uL Abs Immat Gran (auto) 0.08 H (0.00-0.03) X10*3/uL Absolute Neuts (auto) 11.6 H (2.0-8.3) x10*3/uL Absolute Nucleated RBC 0.000 (0.0-0.012) X10*3/uL Nucleated RBC % (auto) 0.0 (0.0-0.2) /100WBC PT 12.7 (11.1-13.3) SEC INR 1.0 (0.9-1.1) APTT 31.3 (26.0-36.8) SEC VBG pH 7.41 (7.32-7.43) VBG pCO2 44 mmHg VBG pO2 40 mmHg VBG HCO3 28 H (22-26) mmol/L VBG O2 Saturation 62.0 % VBG Base Excess 3.4 mmol/L Sodium 138 (135-145) mmol/L Potassium 3.8 (3.3-5.1) mmol/L Chloride 101 (96-108) mmol/L Carbon Dioxide 28 (22-29) mmol/L Anion Gap 13 (12-20) BUN 13 (9-16) mg/dL Creatinine 0.85 (0.5-1.4) mg/dL Estim Creat Clear Calc 114.4 Estimated GFR > 60 Random Glucose 98 (60-115) mg/dL Lactic Acid 0.9 (0.5-2.0) mmol/L Calcium 9.7 (8.4-10.2) mg/dL Magnesium 1.9 (1.6-2.6) mg/dL Total Bilirubin 1.3 H (0.0-1.0) mg/dL Direct Bilirubin 0.3 (0.0-0.5) mg/dL AST 19 (5-37) U/L ALT 18 (0-40) U/L Alkaline Phosphatase 64 (39-117) U/L Troponin I High Sens < 2.7 (<3.5-35.0) ng/L B-Natriuretic Peptide < 10 (<100) pg/mL Total Protein 6.8 (6.5-8.0) g/dL Albumin 4.0 (3.5-5.0) g/dL Lipase 13 (8-78) U/L Influenza Type A (PCR) NEGATIVE (Negative) Influenza Type B (PCR) NEGATIVE (Negative) RSV RNA Qual (PCR) NEGATIVE (Negative) SARS-CoV-2 RNA (RT-PCR) NEGATIVE (Negative) Independent Interpretation I performed an independent interpretation of an: EKG Interpretation: ST 104BPM with LAD, RBBB. Radiology Impression Discussion of test interpretation with radiology: I have reviewed the radiologist's reading. Radiologist Impression: EXAMINATION: XR CHEST CLINICAL INFORMATION: Hypoxia COMPARISON: None available. TECHNIQUE: 2 views of the chest were obtained. FINDINGS: The lungs are well-expanded with blunting of right CP angle from pleural effusion and underlying atelectasis. There is increased pulmonary vascularity throughout both lungs likely pulmonary volume overload. Heart size is borderline normal. There is mild spondylosis dorsal spine. No aggressive lytic or sclerotic process seen. XR/XR chest 2V IMPRESSION: 1. Small right pleural effusion with underlying atelectasis. 2. Mild pulmonary vascular congestion. 3. Mild spondylosis dorsal spine Discharge Plan Discharge Clinical Impression: COPD (chronic obstructive pulmonary disease), Pneumonia, Pleural effusion Patient Disposition: Admitted As Inpatient Prescriptions: No Action albuterol sulfate 2.5 mg /3 mL (0.083 %) solution for nebulization 2.5 mg inhalation Q4-6H PRN (Reason: shortness of breath or wheezing) 30 Days Qty: 360 6RF oxycodone-acetaminophen [Percocet] 5-325 mg tablet 1 tab PO Q6H PRN (Reason: pain) Qty: 28 0RF Rx Instructions: Partial Fill upon patient request. levofloxacin 750 mg tablet 750 mg PO Q24H Qty: 10 0RF Trelegy Ellipta 100-62.5-25 mcg Blister With Device 1 inh inhalation RDAILY Qty: 60 0RF tramadol 50 mg tablet 50 mg PO BEDTIME PRN (Reason: pain) 20 Days Qty: 20 0RF bumetanide 1 mg tablet 1 mg PO DAILY Qty: 30 6RF
--- NOTE | 2023-11-03 14:50 | ECG_ITS ---
Test Reason : CP Blood Pressure : / mmHG Vent. Rate : 104 BPM Atrial Rate : 104 BPM P-R Int : 170 ms QRS Dur : 128 ms QT Int : 354 ms P-R-T Axes : 062 -70 017 degrees QTc Int : 465 ms Sinus tachycardia Left axis deviation Right bundle branch block Inferior infarct , age undetermined Abnormal ECG When compared with ECG of 06-SEP-2023 12:12, No significant changes seen Referred By: Eduarda Chauhan Electronically Signed By:BALTAZAR DE LEON
--- NOTE | 2023-11-03 15:59 | PC.NURSE ---
Pt coming from doctors office where his RA SPO2 was 86%. Pt reports SOB, cough w/ yellow sputum, chills and general malaise for past few days . Pt is not O2 dependent at baseline, has hx of pleural effusions. Pt is alert and oriented, breathing even, elevated and labored with any kind of exertion. Skin hot and flushed. 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 Maintained on 3L O2 NC with sats 94-96%. Pt resting at this time.
[2023-11-03] MEDS: methylPREDNISolone Sod Succ 125 MG/2 ML VIAL IVPUSH (16:08)
[2023-11-03 16:11] LABS: MANUAL DIFF FLAG NO
[2023-11-03] MEDS: Piperacillin Sodium/Tazobactam 3.375 GM in 0.9 % Sodium Chloride 50 ML IV ×2 (16:11→22:36)
[2023-11-03 16:12] LABS: Basophils Percent Auto 0.2 % (0-2); Hematocrit 48.3 % (42.0-52.0); Hemoglobin 15.7 g/dl (14.0-18.0); Imm Gran Abs Auto 0.08 X10*3/uL (0.00-0.03); Imm Gran Pct Auto 0.6 % (0.0-0.4); Lymphocytes Absolute Auto 0.9 X10*3/uL (1.2-4.9); Lymphocytes Percent Auto 6.9 % (20-40); Mean Corpuscular HGB Conc 32.5 g/dl (31.0-36.0); Mean Corpuscular Hemoglobin 30.7 pg (27.0-33.0); Mean Corpuscular Volume 94.3 fL (80.0-98.0); Mean Platelet Volume 10.8 fL (9.4-12.4); Monocytes Absolute Auto 0.6 X10*3/uL (0.1-1.2); Monocytes Percent Auto 4.2 % (2-11); Neutrophils Absolute Auto 11.6 x10*3/uL (2.0-8.3); Neutrophils Percent Auto 88.1 % (45-73); Platelet Count 258 X10*3/uL (160-400); Red Blood Count 5.12 X10*6/uL (4.60-5.80); Red Cell Distribution Width 14.1 % (11.0-16.0); White Blood Count 13.2 X10*3/uL (4.8-10.8)
[2023-11-03] MEDS: Azithromycin 500 MG in 0.9 % Sodium Chloride 250 ML 125 MG IV (16:14)
[2023-11-03 16:18] LABS: Prothrombin Time 12.7 SEC (11.1-13.3)
[2023-11-03 16:21] LABS: Lactic Acid 0.9 mmol/L (0.5-2.0); Partial Thromboplastin Time 31.3 SEC (26.0-36.8)
[2023-11-03 16:25] LABS: Alanine Aminotransferase 18 U/L (0-40); Alkaline Phosphatase 64 U/L (39-117); Anion Gap 13 (12-20); Aspartate Amino Transferase 19 U/L (5-37); Bilirubin Direct 0.3 mg/dL (0.0-0.5); Bilirubin Total 1.3 mg/dL (0.0-1.0); Blood Urea Nitrogen 13 mg/dL (9-16); Calcium 9.7 mg/dL (8.4-10.2); Carbon Dioxide 28 mmol/L (22-29); Chloride 101 mmol/L (96-108); Creatinine Clr Calc Pharmacy 114.4; Estimated Glomerular Filt Rate > 60; Glucose Random 98 mg/dL (60-115); Lipase 13 U/L (8-78); Magnesium 1.9 mg/dL (1.6-2.6); Potassium 3.8 mmol/L (3.3-5.1); Sodium 138 mmol/L (135-145); Total Protein 6.8 g/dL (6.5-8.0)
[2023-11-03] MEDS: Albuterol Sulfate 5 MG, Albuterol/Iprat 2.5/0.5MG 3 ML 3 ML INHALE (16:25)
[2023-11-03 16:32] LABS: B Type Natriuretic Peptide < 10 pg/mL (<100)
[2023-11-03 16:33] LABS: Troponin-I High Sensitivity < 2.7 ng/L (<3.5-35.0)
[2023-11-03 17:02] LABS: VBG Base Excess 3.4 mmol/L; VBG HCO3 28 mmol/L (22-26); VBG pCO2 44 mmHg; VBG pH 7.41 (7.32-7.43); VBG pO2 40 mmHg
[2023-11-03 17:03] LABS: Venous Blood Gas Refer to POC result
[2023-11-03 17:03] LABS: Influenza A PCR NEGATIVE (Negative); Influenza B PCR NEGATIVE (Negative); Resp Syncy Virus RNA Qual PCR NEGATIVE (Negative); SARS COV2 PCR INHOUSE NEGATIVE (Negative)
[2023-11-03] MEDS: Albuterol Sulfate 7.5 MG, Albuterol/Iprat 2.5/0.5MG 3 ML 3 ML INHALE (17:20)
[2023-11-03] MEDS: vancomycin/NS 2,000 MG/500 ML PLAST..BAG 250 MG IV (17:25)
--- NOTE | 2023-11-03 17:25 | PM.IMHP ---
History of Present Illness Date of Service: 11/03/23 Attending physician on admission: Jose Roberto Galindo Chief Complaint: SOB Pt is a 58-year-old primarily Serbian speaking male with a PMH significant for?COPD, hx of Pseudomonas pneumonia with recurrent right-sided pleural effusions, former smoker with 40+ pack year history followed by Dr. Long, and hx of alcohol use disorder who presents to the ED with?generalized weakness, increased shortness of breath, and productive cough for the past few days. Patient initially presented to [employer] [facility] [employer] office and was noted to be hypoxic as low as 87% at rest and requiring up to 3 L supplemental O2. Patient not on home O2. Was then sent to the ED for further evaluation. is at bedside who helps with Serbian translation. Patient notes he has had recurrent right-sided pleural effusions the past year and a half which have required multiple thoracenteses (2 last year and already two more this year). Pleural effusion last drained of approximately 1 L of fluid 2-1/2 weeks ago. Patient has been experiencing increased SOB, PRUITT, and cough productive of yellowish sputum. Today pt was noted to be hypoxic as low at 86% at home and had shaking chills. Has also had right-sided pleuritic chest pain. Denies rhinorrhea, sore throat. No significant lower leg edema. Pt's recurrent pleural effusions has so far been transudative with negative cultures. Unclear etiology: Cardiac workup apparetnly negative for CHF. Patient apparently stopped drinking 3 years ago and quit smoking 2 years ago. Denies fever, abdominal pain. In the ED pt was tachycardic up to 119 and hypoxic as low as 87% on RA. Labs were significant for leukocytosis 13.2 and bilirubin 1.3, otherwise grossly unremarkable. Stable H& H. No electrolyte abnormalities. Renal function and hepatic function WNL. Lactic acid WNL at 0.9. Troponin negative. BNP negative. Tested negative for influenza, COVID, RSV. CXR showed small right pleural effusion with underlying atelectasis, with mild pulmonary vascular congestion and mild spondylolysis of the dorsal spine. EKG demonstrated sinus tachycardia of 104 with RBBB and no evidence significant ST elevations or depressions. Pt was treated with Solu-Medrol, DuoNebs, Zosyn, azithromycin, and vancomycin. Pt will be admitted to the hospital for treatment and further evaluation of acute hypoxic respiratory failure in the setting of COPD exacerbation. Review of Systems Review of Systems: Increased SOB, PRUITT Productive cough Generalized weakness Shaking chills No lower leg edema Denies nausea, vomiting, abdominal pain PMFSH Medical History COPD (chronic obstructive pulmonary disease) PICC (peripherally inserted central catheter) in place Fatigue Splenomegaly ETOH abuse Anemia with low platelet count Pulmonary nodules Family History Father Stroke Mother Cancer Surgical History Status post left rotator cuff repair (07/15/23) History of thoracentesis Hx of repair of right rotator cuff (10/25/20) History of colonoscopy History of liver biopsy Social History Household Members: Spouse Housing: House Do you presently have visiting nurse or other home services: No Patient Tobacco Use Status: Former Tobacco user Quit Date: one year ago Cigarettes Per Day: 10 Years Smoked: 35 yrs Smoked in Last 30 Days: No Use of substances other than those prescribed or required for medical reasons: No Have you been hit, kicked, punched, or otherwise hurt by someone within the past year? 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 Allergies Allergy/AdvReac Type Severity Reaction Status Date / Time No Known Allergies Allergy Verified 11/03/23 14:49 Home Medications Medication Instructions Recorded Confirmed Last Taken Type bumetanide 1 mg tablet 1 mg PO BID 11/03/23 11/03/23 11/03/23 History ibuprofen 800 mg tablet 800 mg PO TID PRN pain 11/03/23 11/03/23 Unknown History omalizumab 150 mg/mL subcutaneous 150 mg subcut QMONTH 11/03/23 11/03/23 10/20/23 History syringe (Xolair) Physical Exam Vital Signs and Narrative: Vital Signs: Last Vital Signs Temp 99.3 F 11/03/23 16:43 Pulse 119 H 11/03/23 17:23 Resp 18 11/03/23 17:23 BP 133/69 11/03/23 16:43 Pulse Ox 94 11/03/23 16:43 O2 Del Method Nasal Cannula 11/03/23 16:43 O2 Flow Rate 3 11/03/23 16:43 Oxygen Flow Rate 3 11/03/23 14:38 BMI result Body Mass Index 29.8 Constitutional: Alert, in no acute distress. Mental Status: Oriented to person, place and time. Eyes: Pupils are equal, round, and reactive to light. Ear, Nose, and Throat: Oropharynx clear, mucous membranes moist. Ears and nose without deformities. Trachea midline. Respiratory: Significant wheezing and rhonchi. Able to speak in full sentences. Cardiovascular: S1, S2, tachy. No murmurs, rubs, or gallops. Gastrointestinal: Abdomen soft, non-tender, non-distended. Normal bowel sounds. Neurologic: Cranial nerves II-XII are grossly intact bilaterally. No focal neurological deficits. Moves all extremities spontaneously. Skin: Warm, dry. Musculoskeletal: No cyanosis or clubbing. Extremities: No edema. Psychiatric: Normal mood and affect. Results Labs 11/04/23 06:23 11/04/23 06:23 Labs: Laboratory Results - last 24 hr 11/03/23 11/03/23 16:01 16:55 MCV 94.3 MCH 30.7 MCHC 32.5 RDW 14.1 Plt Count 258 MPV 10.8 Immature Gran % (Auto) 0.6 H Neut % (Auto) 88.1 H Lymph % (Auto) 6.9 L [place] % (Auto) 4.2 Eos % (Auto) 0.0 Baso % (Auto) 0.2 Lymph # (Auto) 0.9 L [place] # (Auto) 0.6 Eos # (Auto) 0.0 Baso # (Auto) 0.0 Abs Immat Gran (auto) 0.08 H Absolute Neuts (auto) 11.6 H Absolute Nucleated RBC 0.000 Nucleated RBC % (auto) 0.0 PT 12.7 INR 1.0 APTT 31.3 VBG pH 7.41 VBG pCO2 44 VBG pO2 40 VBG HCO3 28 H VBG O2 Saturation 62.0 VBG Base Excess 3.4 Anion Gap 13 Estim Creat Clear Calc 114.4 Estimated GFR > 60 Random Glucose 98 Lactic Acid 0.9 Calcium 9.7 Magnesium 1.9 Total Bilirubin 1.3 H Direct Bilirubin 0.3 AST 19 ALT 18 Alkaline Phosphatase 64 Troponin I High Sens < 2.7 B-Natriuretic Peptide < 10 Total Protein 6.8 Albumin 4.0 Lipase 13 Influenza Type A (PCR) NEGATIVE Influenza Type B (PCR) NEGATIVE RSV RNA Qual (PCR) NEGATIVE SARS-CoV-2 RNA (RT-PCR) NEGATIVE Imaging Radiologist's Impressions: Impressions Chest X-Ray 11/03/23 15:47 IMPRESSION: 1. Small right pleural effusion with underlying atelectasis. 2. Mild pulmonary vascular congestion. 3. Mild spondylosis dorsal spine. Assessment and Plan (1) COPD exacerbation: Status: Acute (2) Hypoxia: Status: Resolved Plan Pt is a 58-year-old primarily Serbian speaking male with a PMH significant for?COPD, hx of Pseudomonas pneumonia with recurrent right-sided pleural effusions, former smoker with 40+ pack year history followed by Dr. Long, and hx of alcohol use disorder who presents to the ED with?generalized weakness, increased shortness of breath, and productive cough for the past few days. Pt will be admitted to the hospital for treatment and further evaluation of acute hypoxic respiratory failure in the setting of COPD exacerbation. Acute hypoxic respiratory failure in setting of COPD exacerbation Patient desatting as low as 87% on RA, wheezing and rhonchi upon auscultation, CXR with small right pleural effusion but no evidence of consolidation Patient does not meet sepsis criteria: Leukocytosis, but tachycardia secondary to inhaler/DuoNeb treatments; no tachypnea or fever, lactic acid WNL at 0.9 Patient was started on broad-spectrum antibiotics in ED Will treat with Zosyn due to history of Pseudomonas pneumonia, started 11/03/2023 Will treat with Xopenex, Solu-Medrol, guaifenesin Continue home inhalers Titrate supplemental oxygen >92, wean as tolerated Follow cultures Recurrent right-sided pleural effusions Has had thoracocentesis twice this year and twice last year, has been hospitalized at [facility] Unclear etiology CXR today shows small right pleural effusion; no indication for thoracocentesis at this time Continue home bumetanide Follows with Dr. Rizo of in pulmonology Pulmonology consult Full Code Attending:?Dr. Galindo DVT Prophylaxis: Lovenox Pt will require a hospitalization of at least two nights for treatment of?acute hypoxic respiratory failure in the setting of COPD exacerbation. Patient will require hospitalization for administration of supplemental O2, IV steroids, IV antibiotics, breathing treatments and close monitoring of respiratory status. Quality Stroke Does the patient have a stroke diagnosis?: No VTE Prior VTE?: No VTE Risk Level:: Medical - moderate - high VTE Device Contraindication: Treatment Not Indicated VTE Drug Contraindication: N/A - Med Ordered
--- NOTE | 2023-11-03 17:48 | PC.NURSE ---
Pt noted to have increase in HR to 140s, per RTs request, duo neb stopped due to tachycardia, pt placed back on his 3L O2. Providers at the bedside aware.
--- NOTE | 2023-11-03 18:13 | PHA.MEDREC ---
Addendum entered by Chari Scales RPh 11/03/23 18:24: Patient reported bumex BID even though script is for daily. Original Note: Pharmacy Consult ? Medication Reconciliation Pharmacy has completed the medication reconciliation. Confirmed medication with patient ( interpreting) and through claim history. Patient reports that he used his nebulizer 3 times yesterday.
[2023-11-03] MEDS: levalbuterol HCL 1.25 MG/3 ML VIAL.NEB INHALE ×2 (19:43→23:38)
[2023-11-03 19:48] LABS: TSH reflex Free T4 0.76 uIU/mL (0.32-4.0)
[2023-11-03] MEDS: Enoxaparin Sodium 40 MG/0.4 ML SYRINGE SUBCUT (20:00)
--- NOTE | 2023-11-03 20:17 | PC.NURSE ---
Pt ca&ox4, no signs of distress. Pt medicated per mar. Plan of care ongoing.
[2023-11-03 20:53] LABS: D Dimer High Sensitivity 246 NG/ML
--- NOTE | 2023-11-03 22:37 | PC.NURSE ---
Pt medicated per oct. Plan of care ongoing.
[2023-11-04] VITALS (10 sets, daily range): BP systolic 114–126; BP diastolic 58–71; PULSE 91–111; RESP 14–20; TEMP 36.4–37.2; O2SAT 92–97
[2023-11-04] MEDS: 0.9 % Sodium Chloride Flush 3 ML SYRINGE IVFLUSH ×3 (01:00→21:33)
[2023-11-04] MEDS: levalbuterol HCL 1.25 MG/3 ML VIAL.NEB INHALE ×5 (03:03→20:01)
[2023-11-04] MEDS: Piperacillin Sodium/Tazobactam 3.375 GM in 0.9 % Sodium Chloride 50 ML IV ×4 (04:56→21:37)
[2023-11-04] MEDS: methylPREDNISolone Sod Succ 40 MG/ML VIAL IVPUSH (05:37)
--- NOTE | 2023-11-04 05:42 | PC.NURSE ---
Pt medicated per oct. Plan of care ongoing.
--- NOTE | 2023-11-04 05:42 | PC.NURSE ---
Pt requested and given urinal. Plan of care ongoing.
[2023-11-04 07:10] LABS: Hematocrit 42.5 % (42.0-52.0); Mean Corpuscular HGB Conc 32.9 g/dl (31.0-36.0); Mean Corpuscular Hemoglobin 30.8 pg (27.0-33.0); Mean Corpuscular Volume 93.6 fL (80.0-98.0); Mean Platelet Volume 11.1 fL (9.4-12.4); Platelet Count 232 X10*3/uL (160-400); Red Blood Count 4.54 X10*6/uL (4.60-5.80); Red Cell Distribution Width 13.9 % (11.0-16.0); White Blood Count 13.8 X10*3/uL (4.8-10.8)
[2023-11-04 07:44] LABS: Anion Gap 14 (12-20); Blood Urea Nitrogen 21 mg/dL (9-16); Calcium 9.4 mg/dL (8.4-10.2); Carbon Dioxide 22 mmol/L (22-29); Chloride 100 mmol/L (96-108); Creatinine Clr Calc Pharmacy 98.2; Estimated Glomerular Filt Rate > 60; Glucose Random 328 mg/dL (60-115); Sodium 133 mmol/L (135-145)
--- NOTE | 2023-11-04 08:51 | MHC.CM.PN ---
CM attempted to speak with Patient over the phone @ [phone] to determine if a [facility] Physical Therapist was needed but /HCP/Jennie answered the phone instead and speaks Mauritanian. 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 Home/self care is the goal and CM has initiated and will follow for dc planning. PCP is / Jonel Forrester.
[2023-11-04] MEDS: Bumetanide 1 MG TABLET PO ×2 (08:55→21:33)
[2023-11-04] MEDS: Potassium Chloride Packet 20 MEQ PACKET 40 MEQ PO (08:55)
--- NOTE | 2023-11-04 09:46 | PC.NURSE ---
Alert and oriented, denies pain or discomfort, resting in bed with eyes closed breathing even and unlabored
--- NOTE | 2023-11-04 12:52 | HO.PM.IMPN ---
Subjective Subjective Date of Service: 11/04/23 Interval History: Acute hypoxic respiratory failure possible sec to COPD exacerbation Review of Systems sob ,cough somewhat improving no fevers Physical Exam Vital Signs: Vital Signs: Last Vital Signs Temp 98.5 F 11/04/23 11:26 Pulse 106 H 11/04/23 11:35 Resp 20 11/04/23 11:35 BP 117/70 11/04/23 11:26 Pulse Ox 95 11/04/23 11:26 O2 Del Method Nasal Cannula 11/04/23 11:26 O2 Flow Rate 3 11/04/23 11:26 Oxygen Flow Rate 3 11/03/23 14:38 BMI result Body Mass Index 29.8 Appearance: Alert.? Oriented X3. cvs: rrr, [id number] . res: air entry somewaht imapovin,diminshed at bases right side >left,has mild wheezing abd: no rebound or guarding ,nt, bs present. ext pulses present , no cyanosis . neuro: axo3 , nonfocal. Objective Data Active Medications Acetaminophen (Acetaminophen 325 Mg Tablet) 650 mg PO Q6H PRN PRN Reason: Pain, Mild (Pain Scale 1-3) Bumetanide (Bumetanide 1 Mg Tablet) 1 mg PO BID [facility]; Protocol Last Admin: 11/04/23 08:55 Dose: 1 mg Documented By: OSCAR Docusate Sodium (Docusate Sodium 100 Mg Capsule) 100 mg PO DAILY PRN PRN Reason: Constipation Fluticasone/Umeclidinium/Vilanterol (Fluticasone/Umeclidinium/Vilanterol 100/62.5/25 Blst.W.Dev) 1 puff INHALE RDAILY [facility] Last Admin: 11/04/23 09:36 Dose: Not Given Documented By: OSCAR Non-Admin Reason: Med Not Available Guaifenesin/Codeine Phosphate (Guaifen/Codeine Sf 200/20/10ml 10 Ml Liquid) 10 ml PO Q4H PRN PRN Reason: Cough Piperacillin Sod/Tazobactam (Sod 3.375 gm/ Sodium Chloride) 50 mls @ 100 mls/hr IV Q6H [facility] Last Infusion: 11/04/23 09:45 Dose: Infused Documented By: OSCAR Levalbuterol HCl (Levalbuterol Hcl 1.25 Mg/3 Ml Vial.Neb) 1.25 mg INHALE RQ4H [facility] Last Admin: 11/04/23 11:33 Dose: 1.25 mg Documented By: TAD Melatonin (Melatonin 3 Mg Tablet) 6 mg PO BEDTIME PRN PRN Reason: Insomnia Ondansetron HCl (Ondansetron Hcl 4 Mg/2 Ml Vial) 4 mg IVPUSH Q8H PRN PRN Reason: Nausea and Vomiting Sodium Chloride (0.9 % Sodium Chloride Flush 3 Ml Syringe) 3 ml IVFLUSH QSHIFT [facility] Last Admin: 11/04/23 09:00 Dose: 3 ml Documented By: OSCAR Labs 11/04/23 06:23 11/04/23 06:23 Labs: Laboratory Results - last 24 hr 11/03/23 11/03/23 11/03/23 16:01 16:55 20:31 MCV 94.3 MCH 30.7 MCHC 32.5 RDW 14.1 Plt Count 258 MPV 10.8 Immature Gran % (Auto) 0.6 H Neut % (Auto) 88.1 H Lymph % (Auto) 6.9 L [place] % (Auto) 4.2 Eos % (Auto) 0.0 Baso % (Auto) 0.2 Lymph # (Auto) 0.9 L [place] # (Auto) 0.6 Eos # (Auto) 0.0 Baso # (Auto) 0.0 Abs Immat Gran (auto) 0.08 H Absolute Neuts (auto) 11.6 H Absolute Nucleated RBC 0.000 Nucleated RBC % (auto) 0.0 PT 12.7 INR 1.0 APTT 31.3 D-Dimer High Sensitivty 246 VBG pH 7.41 VBG pCO2 44 VBG pO2 40 VBG HCO3 28 H VBG O2 Saturation 62.0 VBG Base Excess 3.4 Anion Gap 13 Estim Creat Clear Calc 114.4 Estimated GFR > 60 Random Glucose 98 Lactic Acid 0.9 Calcium 9.7 Magnesium 1.9 Total Bilirubin 1.3 H Direct Bilirubin 0.3 AST 19 ALT 18 Alkaline Phosphatase 64 Troponin I High Sens < 2.7 B-Natriuretic Peptide < 10 Total Protein 6.8 Albumin 4.0 Lipase 13 TSH 0.76 Influenza Type A (PCR) NEGATIVE Influenza Type B (PCR) NEGATIVE RSV RNA Qual (PCR) NEGATIVE SARS-CoV-2 RNA (RT-PCR) NEGATIVE 11/04/23 06:23 MCV 93.6 MCH 30.8 MCHC 32.9 RDW 13.9 Plt Count 232 MPV 11.1 Immature Gran % (Auto) Neut % (Auto) Lymph % (Auto) [place] % (Auto) Eos % (Auto) Baso % (Auto) Lymph # (Auto) [place] # (Auto) Eos # (Auto) Baso # (Auto) Abs Immat Gran (auto) Absolute Neuts (auto) Absolute Nucleated RBC 0.000 Nucleated RBC % (auto) 0.0 PT INR APTT D-Dimer High Sensitivty VBG pH VBG pCO2 VBG pO2 VBG HCO3 VBG O2 Saturation VBG Base Excess Anion Gap 14 Estim Creat Clear Calc 98.2 Estimated GFR > 60 Random Glucose 328 H Lactic Acid Calcium 9.4 Magnesium Total Bilirubin Direct Bilirubin AST ALT Alkaline Phosphatase Troponin I High Sens B-Natriuretic Peptide Total Protein Albumin Lipase TSH Influenza Type A (PCR) Influenza Type B (PCR) RSV RNA Qual (PCR) SARS-CoV-2 RNA (RT-PCR) Assessment and Plan (1) COPD exacerbation: Status: Acute Plan 58-year-old primarily Armenian speaking male with a PMH significant for?COPD, hx of Pseudomonas pneumonia with recurrent right-sided pleural effusions, former smoker with 40+ pack year history followed by Dr. Long, and hx of alcohol use disorder who presents to the ED with?generalized weakness, increased shortness of breath, and productive cough for the past few days. Pt will be admitted to the hospital for treatment and further evaluation of acute hypoxic respiratory failure in the setting of COPD exacerbation. Acute hypoxic respiratory failure in setting of COPD exacerbation: desatting as low as 87% on RA, wheezing and rhonchi upon auscultation, CXR with small right pleural effusion but no evidence of consolidation Patient does not meet sepsis criteria: Leukocytosis, but tachycardia secondary to inhaler/DuoNeb treatments; no tachypnea or fever, lactic acid WNL at 0.[address]:Small right pleural effusion with subjacent atelectasis. Bilateral bronchial thickening and groundglass opacities in the right lung field and left lower lobe which can be seen in setting of infectious/inflammatory etiology. Redemonstrated tree-in-bud nodularity of the bilateral lower lobes, left greater than right. blood culture pending thiracentesis for right sided pleural effusion started Zosyn(11/03/23) , Xopenex, Solu-Medrol, guaifenesin,Titrate supplemental oxygen >92, wean as tolerated. Recurrent right-sided pleural effusions Has had thoracocentesis twice this year and twice last year, has been hospitalized at [facility] [place] Unclear etiology CXR today shows small right pleural effusion; no indication for thoracocentesis at this time Continue home bumetanide Follows with Dr. Rizo of in pulmonology Pulmonology consult Full Code DVT Prophylaxis: Lovenox ongoing hospitalization need for treatment of?acute hypoxic respiratory failure in the setting of COPD exacerbation-need for administration of supplemental O2, IV steroids, IV antibiotics, breathing treatments and close monitoring of respiratory status,also need thoracenetsis for reccurrent pleural effusions. Quality Stroke Does the patient have a stroke diagnosis?: No VTE Prior VTE?: No VTE Risk Level:: Medical - moderate - high VTE Device Contraindication: Treatment Not Indicated VTE Drug Contraindication: N/A - Med Ordered
--- NOTE | 2023-11-04 14:09 | P.CONPL_ITS ---
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 CT chest demonstrates right basilar pneumonia with right-sided effusion. Patient is on empiric antibiotics no evidence of acute COPD exacerbation. Review of Systems 2 Constitutional: Constitutional: Denies daytime sleepiness, Denies excessive sweating, Denies fatigue, Denies fever(s), Denies lethargy, Denies malaise, Denies night sweats, Denies snoring and Denies weight loss Eyes: Eyes: Denies blurry vision and Denies itchy eyes ENT: Denies nasal congestion, Denies post nasal drip, Denies sinus pain, Denies sinus pressure and Denies other ( Thrush) Cardiovascular: Cardiovascular: Denies chest pain, Denies pedal edema, Denies dyspnea, Reports dyspnea on exertion, Denies orthopnea and Denies paroxysmal nocturnal dyspnea Respiratory: Respiratory: Denies cough, Denies hemoptysis, Denies excessive phlegm production, Denies dyspnea, Reports dyspnea on exertion, Denies snoring and Denies wheezing Gastrointestinal: Gastrointestinal: Denies abdominal pain and Denies heartburn Musculoskeletal: Musculoskeletal: Denies myalgias, Denies arthralgias and Denies joint swelling Integumentary/Breasts: Skin/Breast: Denies rash Neurologic: Denies memory loss and Denies seizure-like activity Psychiatric: Psychiatric: Denies abnormal sleep pattern, Denies anxiety and Denies memory loss Endocrine: Endocrine: Denies excessive sweating, Denies fatigue and Denies heat intolerance Hematologic/Lymphatic: Hematologic/Lymphatic: Denies easy bruising Allergic/Immunologic: Allergic/Immunologic: Denies itchy eyes, Denies seasonal rhinorrhea and Denies wheezing PMFSH Past Medical History Medical History COPD (chronic obstructive pulmonary disease) PICC (peripherally inserted central catheter) in place Fatigue Splenomegaly ETOH abuse Anemia with low platelet count Pulmonary nodules Family History Family History Father Stroke Mother Cancer Surgical History Surgical History Status post left rotator cuff repair (07/15/23) History of thoracentesis Hx of repair of right rotator cuff (10/25/20) History of colonoscopy History of liver biopsy Social History Social History Household Members: Spouse Housing: House Do you presently have visiting nurse or other home services: No Patient Tobacco Use Status: Former Tobacco user Quit Date: one year ago Cigarettes Per Day: 10 Years Smoked: 35 yrs Smoked in Last 30 Days: No Use of substances other than those prescribed or required for medical reasons: No Have you been hit, kicked, punched, or otherwise hurt by someone within the past year? 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 Allergies Allergy/AdvReac Type Severity Reaction Status Date / Time No Known Allergies Allergy Verified 11/03/23 14:49 Active Medications: Current Medications Acetaminophen (Acetaminophen 325 Mg Tablet) 650 mg PO Q6H PRN PRN Reason: Pain, Mild (Pain Scale 1-3) Bumetanide (Bumetanide 1 Mg Tablet) 1 mg PO BID [facility]; Protocol Last Admin: 11/04/23 08:55 Dose: 1 mg Docusate Sodium (Docusate Sodium 100 Mg Capsule) 100 mg PO DAILY PRN PRN Reason: Constipation Fluticasone/Umeclidinium/Vilanterol (Fluticasone/Umeclidinium/Vilanterol 100/62.5/25 Blst.W.Dev) 1 puff INHALE RDAILY [facility] Last Admin: 11/04/23 09:36 Dose: Not Given Guaifenesin/Codeine Phosphate (Guaifen/Codeine Sf 200/20/10ml 10 Ml Liquid) 10 ml PO Q4H PRN PRN Reason: Cough Piperacillin Sod/Tazobactam (Sod 3.375 gm/ Sodium Chloride) 50 mls @ 100 mls/hr IV Q6H [facility] Last Infusion: 11/04/23 09:45 Dose: Infused Levalbuterol HCl (Levalbuterol Hcl 1.25 Mg/3 Ml Vial.Neb) 1.25 mg INHALE RQ4H [facility] Last Admin: 11/04/23 11:33 Dose: 1.25 mg Melatonin (Melatonin 3 Mg Tablet) 6 mg PO BEDTIME PRN PRN Reason: Insomnia Ondansetron HCl (Ondansetron Hcl 4 Mg/2 Ml Vial) 4 mg IVPUSH Q8H PRN PRN Reason: Nausea and Vomiting Sodium Chloride (0.9 % Sodium Chloride Flush 3 Ml Syringe) 3 ml IVFLUSH QSHIFT [facility] Last Admin: 11/04/23 09:00 Dose: 3 ml Home Medications Medication Instructions Recorded Confirmed Last Taken Type bumetanide 1 mg tablet 1 mg PO BID 11/03/23 11/03/23 11/03/23 History ibuprofen 800 mg tablet 800 mg PO TID PRN pain 11/03/23 11/03/23 Unknown History omalizumab 150 mg/mL subcutaneous 150 mg subcut QMONTH 11/03/23 11/03/23 10/20/23 History syringe (Xolair) Physical Exam 2 Vital Signs: Vital Signs: Last Vital Signs Temp 98.5 F 11/04/23 11:26 Pulse 106 H 11/04/23 11:35 Resp 20 11/04/23 11:35 BP 117/70 11/04/23 11:26 Pulse Ox 95 11/04/23 11:26 O2 Del Method Nasal Cannula 11/04/23 11:26 O2 Flow Rate 3 11/04/23 11:26 Oxygen Flow Rate 3 11/03/23 14:38 BMI result Body Mass Index 29.8 Const: General: no acute distress and alert Nutritional Appearance: not obese Orientation/consciousness: Other orientation findings ( oriented) HEENT: Head: Yes atraumatic Eyes: General: appearance normal, both eyes and all related structures S clerae: sclerae normal EOM: EOMs intact bilaterally Neck: Neck: Yes supple Lymphatic: no lymphadenopathy noted Resp: Effort & Inspection: normal respiratory effort and no use of accessory muscles Auscultation: crackles (Right basilar) Cardio: Rate: tachycardic Rhythm: regular rhythm Heart sounds: no gallops, no murmurs and no rubs Skin: General skin exam: other ( warm) Extrem: General: No clubbing, No cyanosis and No edema Results Laboratory Findings 11/04/23 06:23 11/04/23 06:23 ABG, PT/INR, D-dimer: PT/INR, D-dimer PT 12.7 SEC (11.1-13.3) 11/03/23 16:01 INR 1.0 (0.9-1.1) 11/03/23 16:01 Abnormal lab findings: Abnormal Labs 11/03/23 11/03/23 11/04/23 16:01 16:55 06:23 WBC 13.2 H 13.8 H RBC 4.54 L Immature Gran % (Auto) 0.6 H Neut % (Auto) 88.1 H Lymph % (Auto) 6.9 L Lymph # (Auto) 0.9 L Abs Immat Gran (auto) 0.08 H Absolute Neuts (auto) 11.6 H VBG HCO3 28 H Sodium 133 L Potassium 3.0 L D BUN 21 H Random Glucose 328 H Total Bilirubin 1.3 H Assessment and Plan (1) IgG deficiency: Status: Acute (2) Recurrent pleural effusion on right: Status: Acute (3) COPD (chronic obstructive pulmonary disease): Status: Acute (4) Pseudomonas pneumonia: Status: Acute (5) PRUITT (dyspnea on exertion): Status: Acute Plan Impression: 58-year-old woman and with underlying COPD with hypogammaglobulinemia and recurrent pulmonary Pseudomonas infections and recurrent right pleural effusion with admitted with acute hypoxic respiratory failure. At this time no evidence of acute COPD exacerbation, but with recurrence of right-sided pleural effusion and right basilar pneumonia. Recommendations: Agree with empiric Zosyn. Will require diagnostic/therapeutic right-sided thoracentesis. Will request follow-up echo and check D-dimer. Procedures Date of Service Date of Service: 11/04/23
[2023-11-04] MEDS: Lidocaine HCl 1 % MPF 5 ML VIAL SUBCUT (16:32)
[2023-11-04] MEDS: Acetaminophen 325 MG TABLET 650 MG PO (17:06)
[2023-11-04 17:56] LABS: MN% 88.9 %; PMN% 11.1 %; RBC Pleural Fluid 0.002 X10*6/uL; WBC Pleural Fluid 1.557 X10*3/uL
[2023-11-04 17:59] LABS: BF Shift QC OK YES
[2023-11-04 18:24] LABS: Lymphocytes Pleural Fluid 49 %; Monocytes Pleural Fluid 8 %; Neutrophils Pleural Fluid 7 %; Other Cells Plerual Fl 36 %
[2023-11-04 23:07] LABS: Anion Gap 13 (12-20); Blood Urea Nitrogen 26 mg/dL (9-16); Calcium 9.2 mg/dL (8.4-10.2); Carbon Dioxide 26 mmol/L (22-29); Chloride 103 mmol/L (96-108); Creatinine Clr Calc Pharmacy 117.2; Estimated Glomerular Filt Rate > 60; Glucose Random 148 mg/dL (60-115); Sodium 138 mmol/L (135-145)
[2023-11-05] VITALS (11 sets, daily range): BP systolic 90–118; BP diastolic 60–70; PULSE 77–95; RESP 16–20; TEMP 36.1–37.5; O2SAT 93–97
[2023-11-05] MEDS: Piperacillin Sodium/Tazobactam 3.375 GM in 0.9 % Sodium Chloride 50 ML IV ×3 (03:37→18:23)
--- NOTE | 2023-11-05 07:00 | CA_ITS ---
Transthoracic Echocardiogram Patient (Last, First, Middle): Talon Stanton, Gender: Male Date of : 1965 Age: 58 Procedure Date: 11/05/2023 Procedure Type: Transthoracic Echocardiogram [place] [facility] [place] Height: 182. cm Weight: 99.79 kg BSA: 2.21 m2 Heart Rate: 81 bpm BP: 105 / 69 mmHg Front Desk Team Member: GENARO Referring MD: Luis M Long MD Symptoms: Dyspnea on exertion Study Quality: Adequate ECG Rhythm: Sinus Conclusions: - The left ventricular systolic function is normal. The calculated ejection fraction is 59% by biplane method. - No obvious valvular pathology seen on this study. - There is mild dilatation of the sinuses of Valsalva measuring 4.30 cm, mild dilatation of the ascending aorta measuring 4.30 cm, and mild dilatation of the aortic arch measuring 3.90 cm. Findings Left Ventricle Normal left ventricular cavity size. There is normal left ventricular wall thickness. The left ventricular systolic function is normal. The calculated ejection fraction is 59% by biplane method. There is evidence of regional wall motion abnormalities. Diastolic function is normal for age. LV peak GLS -17.7%. Right Ventricle Normal right ventricular cavity size and systolic function. Atria The left atrium is mildly dilated. The right atrium is normal in size. Aortic Valve There is a normal trileaflet aortic valve. There is no aortic valve stenosis. There is no aortic valve regurgitation. Mitral Valve The mitral valve appears normal. There is no mitral valve regurgitation. There is no mitral valve stenosis. Pulmonic Valve The pulmonic valve is likely normal. Tricuspid Valve Normal tricuspid valve structure. There is trace tricuspid valve regurgitation. There is no evidence of pulmonary hypertension. Great Vessels There is mild dilatation of the sinuses of Valsalva measuring 4.30 cm, mild dilatation of the ascending aorta measuring 4.30 cm, and mild dilatation of the aortic arch measuring 3.90 cm. Venous The inferior vena cava is normal in size and collapses greater than 50% with inspiration. Pericardium/Pleural There is a trivial pericardial effusion. Prior Study Comparison Changes noted compared to prior study dated: 03/02/2023. See comment on aorta. Recommendations, Care & Conclusions No obvious valvular pathology seen on this study. Measurements 2D Linear Measurements IVSd: 1.01 0.6-0.9/0.6-1.0 cm LVIDd: 4.81 3.9-5.3/4.2-5.9 cm LVIDd Index: 2.18 2.4-3.2/2.2-3.1 cm/m2 LVIDs: 3.02 2.0-3.6 cm LVPWd: 1.06 0.7-1.1 cm LA Diam: 3.90 2.7-3.8/3.0-4.0 cm LAIDs Index: 1.76 1.5-2.3 cm/m2 LV Mass: 222.95 67-162/88-224 g LV Mass Index: 100.88 43-95/49-115 g/m2 LVOT Diam: 2.10 3.0+(-)1.3 cm 2D Systolic Function EF 4C: 61.20 >55% EF 2C: 56.60 >55% EF BiP: 59.30 >55% Mitral Valve MV Pk E: 0.76 MV PK A: 0.87 MV Decel Time: 205.00 E/A: 0.90 E'Lateral: 11.40 E'Medial: 8.27 E/E' Med: 9.10 E/E' Lat: 6.60 PHT: 60.00 MVA PHT: 3.67 Decel Mcclain: 3.69 Aortic Valve AoV Pk Tor: 1.94 AoV Mn Tor: 1.27 AoV VTI: 0.37 AoV Pk Grad: 15.00 Aov Mn Grad: 7.00 PIERCE Cont.VTI: 2.83 LVOT LVOT Pk Tor: 1.43 LVOT Mn Tor: 1.00 LVOT VTI: 0.30 LVOT Pk Grad: 8.00 LVOT Mn Grad: 5.00 LVOT Diam: 2.10 LVOT Area: 3.46 Diastolic Function MV Pk E: 0.76 MV Pk A: 0.87 E/A: 0.90 E'Medial: 8.27 E/E' Med: 9.10 E' Laterial: 11.40 E/E' Lat: 6.60 Right Ventricle TAPSE (mm): 30.00 TVS' Tor: 14.10 Tricuspid Valve TR Pk Tor: 1.82 TR Pk Grad: 13.00 RA Press: 3.00 RVSP: 16.00 Great Vessels Aorta Sinus of Valsalva: 4.30 2.0-3.5 cm Ao Asc: 4.30 2.1-3.4 cm Ao Arch: 3.90 Pulmonary Valve PV Pk Tor: 1.36 Peak PV Grad: 7.00 Updated in Other Vendor System with Status of Final Chase Stewart MD electronically signed on 11/05/2023 11:46:01 AM with status of Final
[2023-11-05] MEDS: Fluticasone/Umeclidinium/Vilanterol 100/62.5/25 BLST.W.DEV 1 PUFF INHALE (07:56)
[2023-11-05] MEDS: levalbuterol HCL 1.25 MG/3 ML VIAL.NEB INHALE ×4 (07:56→18:43)
[2023-11-05] MEDS: Acetaminophen 325 MG TABLET 650 MG PO (08:46)
[2023-11-05] MEDS: 0.9 % Sodium Chloride Flush 3 ML SYRINGE IVFLUSH (08:47)
[2023-11-05] MEDS: Bumetanide 1 MG TABLET PO ×2 (08:49→22:22)
--- NOTE | 2023-11-05 13:33 | HO.PM.IMPN ---
Subjective Subjective Date of Service: 11/05/23 Interval History: copd excerebation Review of Systems sob ,cough somewhat improving no fevers Physical Exam Vital Signs: Vital Signs: Last Vital Signs Temp 97.1 F 11/05/23 11:44 Pulse 77 11/05/23 11:44 Resp 16 11/05/23 11:44 BP 90/60 11/05/23 11:44 Pulse Ox 93 11/05/23 11:44 O2 Del Method Room Air 11/05/23 11:44 O2 Flow Rate 1 11/05/23 08:00 Oxygen Flow Rate 3 11/03/23 14:38 BMI result Body Mass Index 29.8 Appearance: Alert.? Oriented X3. cvs: rrr, [id number] . res: air entry somewaht imapovin,diminshed at bases right side >left,has mild wheezing abd: no rebound or guarding ,nt, bs present. ext pulses present , no cyanosis . neuro: axo3 , nonfocal. Objective Data Active Medications Acetaminophen (Acetaminophen 325 Mg Tablet) 650 mg PO Q6H PRN PRN Reason: Pain, Mild (Pain Scale 1-3) Last Admin: 11/05/23 08:46 Dose: 650 mg Documented By: CHRISTEN Bumetanide (Bumetanide 1 Mg Tablet) 1 mg PO BID [facility]; Protocol Last Admin: 11/05/23 08:49 Dose: 1 mg Documented By: CHRISTEN Docusate Sodium (Docusate Sodium 100 Mg Capsule) 100 mg PO DAILY PRN PRN Reason: Constipation Fluticasone/Umeclidinium/Vilanterol (Fluticasone/Umeclidinium/Vilanterol 100/62.5/25 Blst.W.Dev) 1 puff INHALE RDAILY [facility] Last Admin: 11/05/23 07:56 Dose: 1 puff Documented By: BROOKE Guaifenesin/Codeine Phosphate (Guaifen/Codeine Sf 200/20/10ml 10 Ml Liquid) 10 ml PO Q4H PRN PRN Reason: Cough Piperacillin Sod/Tazobactam (Sod 3.375 gm/ Sodium Chloride) 50 mls @ 100 mls/hr IV Q6H [facility] Last Admin: 11/05/23 11:34 Dose: 100 mls/hr Documented By: CHRISTEN Levalbuterol HCl (Levalbuterol Hcl 1.25 Mg/3 Ml Vial.Neb) 1.25 mg INHALE RQ4H [facility] Last Admin: 11/05/23 11:14 Dose: 1.25 mg Documented By: BROOKE Melatonin (Melatonin 3 Mg Tablet) 6 mg PO BEDTIME PRN PRN Reason: Insomnia Ondansetron HCl (Ondansetron Hcl 4 Mg/2 Ml Vial) 4 mg IVPUSH Q8H PRN PRN Reason: Nausea and Vomiting Sodium Chloride (0.9 % Sodium Chloride Flush 3 Ml Syringe) 3 ml IVFLUSH QSHIFT [facility] Last Admin: 11/05/23 08:47 Dose: 3 ml Documented By: CHRISTEN Labs 11/04/23 06:23 11/04/23 22:48 Labs: Laboratory Results - last 24 hr 11/04/23 11/04/23 16:20 22:48 Anion Gap 13 Estim Creat Clear Calc 117.2 Estimated GFR > 60 Random Glucose 148 H Calcium 9.2 Magnesium 2.0 Pleural WBC 1.557 Pleural RBC 0.002 Pleural Neutrophils 7 Pleural Lymphocytes 49 Pleural Monocytes 8 Pleural Other Cells 36 Microbiology Microbiology Results: Microbiology 11/04/23 16:20 Gram Stain - Final Pleural Fluid Routine Culture - Preliminary No growth to date. Anaerobic Culture - Preliminary No growth to date. 11/03/23 16:01 Blood Culture - Preliminary Blood - Venous No growth after 24 hours. 11/03/23 16:01 Blood Culture - Preliminary Blood - Venous No growth after 24 hours. Assessment and Plan (1) COPD exacerbation: Status: Acute Plan 58-year-old primarily Swedish speaking male with a PMH significant for?COPD, hx of Pseudomonas pneumonia with recurrent right-sided pleural effusions, former smoker with 40+ pack year history followed by Dr. Long, and hx of alcohol use disorder who presents to the ED with?generalized weakness, increased shortness of breath, and productive cough for the past few days. Pt will be admitted to the hospital for treatment and further evaluation of acute hypoxic respiratory failure in the setting of COPD exacerbation. Acute hypoxic respiratory failure in setting of COPD exacerbation: desatting as low as 87% on RA, wheezing and rhonchi upon auscultation, CXR with small right pleural effusion but no evidence of consolidation Patient does not meet sepsis criteria: Leukocytosis, but tachycardia secondary to inhaler/DuoNeb treatments; no tachypnea or fever, lactic acid WNL at 0.[address]:Small right pleural effusion with subjacent atelectasis. Bilateral bronchial thickening and groundglass opacities in the right lung field and left lower lobe which can be seen in setting of infectious/inflammatory etiology. Redemonstrated tree-in-bud nodularity of the bilateral lower lobes, left greater than right. blood culture pending thiracentesis for right sided pleural effusion. started Zosyn(11/03/23) , Xopenex, Solu-Medrol, guaifenesin,Titrate supplemental oxygen >92, wean as tolerated. Recurrent right-sided pleural effusions Has had thoracocentesis twice this year and twice last year, has [place] [facility] [place]clear etiology CXR today shows small right pleural effusion; no indication for thoracocentesis at this time Continue home bumetanide Follows with Dr. Rizo of in pulmonology Pulmonology consult Full Code DVT Prophylaxis: Lovenox ongoing hospitalization need for treatment of?acute hypoxic respiratory failure in the setting of COPD exacerbation-need for administration of supplemental O2, IV steroids, IV antibiotics, breathing treatments and close monitoring of respiratory status,also need thoracenetsis for reccurrent pleural effusions. Quality Stroke Does the patient have a stroke diagnosis?: No VTE Prior VTE?: No VTE Risk Level:: Medical - moderate - high VTE Device Contraindication: Treatment Not Indicated VTE Drug Contraindication: N/A - Med Ordered
--- NOTE | 2023-11-05 15:51 | P.PNPL_ITS ---
Subjective Subjective Date of Service: 11/05/23 Interval history: FiO2 requirements and respiratory status improved with thoracentesis. Continues with significant cough. Objective Data Labs 11/04/23 06:23 11/04/23 22:48 Labs: Laboratory Results - last 24 hr 11/04/23 11/04/23 16:20 22:48 Sodium 138 Potassium 4.0 D Chloride 103 Carbon Dioxide 26 Anion Gap 13 BUN 26 H Creatinine 0.83 Estim Creat Clear Calc 117.2 Estimated GFR > 60 Random Glucose 148 H Calcium 9.2 Magnesium 2.0 Pleural WBC 1.557 Pleural RBC 0.002 Pleural Neutrophils 7 Pleural Lymphocytes 49 Pleural Monocytes 8 Pleural Other Cells 36 Microbiology Microbiology Results: Microbiology 11/04/23 16:20 Pleural Fluid Gram Stain - Final 11/04/23 16:20 Pleural Fluid Routine Culture - Preliminary No growth to date. 11/04/23 16:20 Pleural Fluid Anaerobic Culture - Preliminary No growth to date. 11/03/23 16:01 Blood - Venous Blood Culture - Preliminary No growth after 24 hours. 11/03/23 16:01 Blood - Venous Blood Culture - Preliminary No growth after 24 hours. Physical Exam 2 Vital Signs: Vital Signs: Last Vital Signs Temp 97.1 F 11/05/23 11:44 Pulse 85 11/05/23 15:24 Resp 18 11/05/23 15:24 BP 90/60 11/05/23 11:44 Pulse Ox 93 11/05/23 11:44 O2 Del Method Room Air 11/05/23 11:44 O2 Flow Rate 1 11/05/23 08:00 Oxygen Flow Rate 3 11/03/23 14:38 BMI result Body Mass Index 29.8 Const: General: no acute distress, alert and awake Eyes: Sclerae: sclerae normal EOM: EOMs intact bilaterally Neck: Neck: Yes no lymphadenopathy, Yes trachea midline and Yes supple Resp: Effort & Inspection: normal respiratory effort and no respiratory distress Auscultation: clear to auscultation bilaterally Cardio: Rate: regular rate Rhythm: regular rhythm Heart sounds: no gallops, no murmurs and no rubs GI: Palpation (GI): Soft to palpation and Other GI palpation findings present ( Nontender) Auscultation: normal bowel sounds Extrem: General: Yes no pedal edema, No clubbing and No cyanosis Procedures Date of Service Date of Service: 11/05/23 Assessment and Plan Assessment and plan (1) IgG deficiency: Status: Acute (2) Pneumonia: Status: Acute (3) COPD (chronic obstructive pulmonary disease): Status: Acute (4) Recurrent pleural effusion on right: Status: Acute Plan Impression: 58-year-old woman and with underlying COPD with hypogammaglobulinemia and recurrent pulmonary Pseudomonas infections and recurrent right pleural effusion with admitted with acute hypoxic respiratory failure. Now status post right-sided thoracentesis with drainage of approximately 1 L insignificant improvement in respiratory status. Recommendations: Agree with empiric Zosyn. Pleural fluid studies are pending. Time Spent With Patient Time: Total time managing care of this patient today ____ minutes. Progress Note: Quality Stroke Does the patient have a stroke diagnosis?: No
--- NOTE | 2023-11-05 15:55 | P.CDIM_ITS ---
PROVIDER RESPONSE TEXT: To clarify, the appropriate diagnosis supported by the clinical indicators: Hypokalemia: resolved QUERY TEXT: PHYSICIAN'S DOCUMENTATION REQUEST Date of Query: 11/05/2023 09:14 AM EDT Patient Name: Talon Stanton Admit Date: 11/03/2023 Dear Jose Roberto Galindo, A review of the medical record indicates additional documentation may be needed. Please review below and update the documentation accordingly. Clinical Indicators: LAB FINDINGS: potassium 3.0 L Based on the above, is there a diagnosis that correlates with these lab findings: Hypokalemia resolved, suspected, possible etc. Labs indicate a diagnosis of (please specify) Other (explain) Clinically unable to determine (explain) Thank you, Simin Mcintyre, CCS, CDIS Use of terms such as suspected, likely, concern for, or probable (associated with a specific diagnosi s that is being evaluated, monitored, or treated as if it exists) are acceptable and can be coded in the inpatient se tting, when documented at the time of discharge. Please use your independent medical judgment in providing your response. THIS QUERY IS PART OF THE PERMANENT MEDICAL RECORD
[2023-11-06] MEDS: Piperacillin Sodium/Tazobactam 3.375 GM in 0.9 % Sodium Chloride 50 ML IV ×2 (01:42→07:16)
[2023-11-06] MEDS: 0.9 % Sodium Chloride Flush 3 ML SYRINGE IVFLUSH ×2 (01:43→09:09)
--- NOTE | 2023-11-06 01:57 | PC.NURSE ---
Assumed care of patient at 19:00 (11/04). Pt is seen on s4. A&Ox4. NSR on tele. Denies chest pain and sob. Pt s/p thoracentesis earlier today for small right pleural effusion. DSD to right posterior flank remains c/d/i, no redness, drainage, or crepitus noted. Breathing is even and unlabored without distress at rest and with ambulation to the BR. Pt denies pain. Scheduled po bumex given. Denies n/v. Please see shift assessment, tasks, and MAR for full details. Handoff report given to oncoming RN at 23:00.
[2023-11-06 03:15] VITALS: BP 109/61; PULSE 73; RESP 18; TEMP 36.5; O2SAT 97
[2023-11-06 07:45] VITALS: PULSE 78; RESP 18; O2SAT 94
[2023-11-06] MEDS: levalbuterol HCL 1.25 MG/3 ML VIAL.NEB INHALE ×2 (07:45→12:49)
[2023-11-06] MEDS: Fluticasone/Umeclidinium/Vilanterol 100/62.5/25 BLST.W.DEV 1 PUFF INHALE (07:45)
[2023-11-06 07:47] VITALS: BP 110/68; PULSE 79; RESP 20; TEMP 36.3; O2SAT 94
[2023-11-06] MEDS: Bumetanide 1 MG TABLET PO (09:09)
[2023-11-06 11:07] VITALS: BP 107/66; PULSE 88; RESP 16; TEMP 36.7; O2SAT 94
--- NOTE | 2023-11-06 12:19 | MHC.CM.PN ---
Patient has been medically cleared for dc to home today, self care.
--- NOTE | 2023-11-06 12:24 | P.DS_ITS ---
DS: Providers Provider Date of Service: 11/06/23 Date of admission: 11/03/23 17:57 Date of discharge: 11/06/23 Primary care physician: Jonel Forrester MD Consults: 11/03/23 18:13 Consult to Pulmonology Routine Consulting Provider: [facility] Reason for consultation: COPD exacerbation, recurrent pleural effusion Attending physician on discharge: Jose Roberto Galindo Discharging clinician: Jose Roberto Galindo DS: Diagnosis Discharge Diagnosis (1) IgG deficiency: Status: Acute (2) Pneumonia: Status: Acute (3) COPD (chronic obstructive pulmonary disease): Status: Acute (4) Recurrent pleural effusion on right: Status: Acute DS: Summary Hospital Course Hospital Course: 58-year-old primarily [place] speaking male with a PMH significant for?COPD, hx of Pseudomonas pneumonia with recurrent right-sided pleural effusions, former smoker with 40+ pack year history followed by Dr. Long, and hx of alcohol use disorder who presents to the ED with?generalized weakness, increased shortness o f breath, and productive cough for the past few days. 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 Patient not on home O2. Was then sent to the ED for further evaluation. is at bedside who helps with [place] translation. Patient notes he has had recurrent right-sided pleural effusions the past year and a half which have required multiple thoracenteses (2 last year and already two more this year). Pleural effusion last drained of approximately 1 L of fluid 2-1/2 weeks ago. Patient has been experiencing increased SOB, PRUITT, and cough productive of yellowish sputum. Today pt was noted to be hypoxic as low at 86% at home and had shaking chills. Has also had right-sided pleuritic chest pain. Denies rhinorrhea, sore throat. No significant lower leg edema. Pt's recurrent pleural effusions has so far been transudative with negative cultures. Unclear etiology: Cardiac workup apparetnly negative for CHF. Patient apparently stopped drinking 3 years ago and quit smoking 2 years ago. Denies fever, abdominal pain. In the ED pt was tachycardic up to 119 and hypoxic as low as 87% on RA. Labs were significant for leukocytosis 13.2 and bilirubin 1.3, otherwise grossly unremarkable. Stable H& H. No electrolyte abnormalities. Renal function and hepatic function WNL. Lactic acid WNL at 0.9. Troponin negative. BNP negative. Tested negative for influenza, COVID, RSV. CXR showed small right pleural effusion with underlying atelectasis, with mild pulmonary vascular congestion and mild spondylolysis of the dorsal spine. EKG demonstrated sinus tachycardia of 104 with RBBB and no evidence significant ST elevations or depressions. Pt was treated with Solu-Medrol, DuoNebs, Zosyn, azithromycin, and vancomycin. Pt will be admitted to the hospital for treatment and further evaluation of acute hypoxic respiratory failure in the setting of COPD exacerbation. Hospital course: Patient was admitted due to shortness of breath and hypoxia-found to have right- sided pleural effusion recurrent also COPD exacerbation, in addition has history of Pseudomonas in the sputum.: Patient was treated with nebs, IV Zosyn, right- sided pleurocentesis was done: Pleural fluid-has leukocytosis predominantly lymphocytic, Blood culture negative.Patient leukocytosis similar, no fever, shortness of breath improved now at baseline, off oxygen, pleural fluid culture preliminary negative. Pleural cytology pending. In addition patient's echo ef seems 59%(fine). Patient was seen by Pulmonary-recommended to switch antibiotic to Levaquin for 1 week for possible inflammatory effusion. Patient will follow up with Pulmonary outpatient with cytology results. plan: complete levaquin 750 mg daily for 7 days ,hycodan 10 ml q4hr prn -limited supply. Follow-up with Pulmonary for cytology results as well as further management outpatient. Above management discussed with the patient and his in detail length they both understand and in agreement with the above plan. Time spent 50 minute. Time Attestation Total time managing care of this patient today: 40 mintues. Discharge Coordination Time (in mins): 40 min Quality: Safe Use of Opioids Does Pt have an Active Cancer Diagnosis on the Problem List?: No Quality: Stroke Does the patient have a stroke diagnosis?: No Physical Exam Vital Signs: Vital Signs: Last Vital Signs Temp 98.1 F 11/06/23 11:07 Pulse 88 11/06/23 11:07 Resp 16 11/06/23 11:07 BP 107/66 11/06/23 11:07 Pulse Ox 94 11/06/23 11:07 O2 Del Method Room Air 11/06/23 11:07 O2 Flow Rate 1 11/05/23 08:00 Oxygen Flow Rate 3 11/03/23 14:38 BMI result Body Mass Index 29.8 Appearance: Alert.? Oriented X3.?. cvs: rrr, [id number] , no murmur res:air entry fair, improved ,no rales or wheezing abd: no rebound or guarding ,nt, bs present. ext pulses present , no cyanosis. neuro: axo3 , nonfocal. DS: Data Data Completed and Pending Completed studies during hospitalization [Text1]: Procedures Drainage of Right Pleural Cavity with Drainage Device, Percutaneous Approach (09/06/23) Pending studies at discharge: Pending at discharge 11/04/23 16:20 Cytology [PTH] Urgent Labs on day of discharge: Preliminary micro results at discharge 11/04/23 16:20 Routine Culture - Preliminary Pleural Fluid No growth to date. Anaerobic Culture - Preliminary No growth to date. 11/03/23 16:01 Blood Culture - Preliminary Blood - Venous No growth after 48 hours. 11/03/23 16:01 Blood Culture - Preliminary Blood - Venous No growth after 48 hours. Imaging Chest x-ray: Radiologist's impression: ITS Impressions Chest X-Ray 11/03/23 15:47 IMPRESSION: 1. Small right pleural effusion with underlying atelectasis. 2. Mild pulmonary vascular congestion. 3. Mild spondylosis dorsal spine. Chest CT 11/04/23 09:10 IMPRESSION: 1. Small right pleural effusion with subjacent atelectasis. 2. Bilateral bronchial thickening and groundglass opacities in the right lung field and left lower lobe which can be seen in setting of infectious/inflammatory etiology. Redemonstrated tree-in-bud nodularity of the bilateral lower lobes, left greater than right. 3. Stable pulmonary nodules measuring up to 3 mm.No new enlarged or suspicious pulmonary nodules or masses are noted. Continued follow-up as per Fleischner criteria. 4. Aneurysmal dilatation of the ascending aorta at the level of the main pulmonary artery measuring 4.3 cm. 5. Small hiatal hernia. 6. Borderline enlargement of the spleen measuring 13.4 cm. 7. Trace fluid noted in the mesentery. A few mildly prominent mesenteric lymph nodes are noted. Various management parameters for solitary pulmonary nodules are in the literature. According to the Fleischner Society, recommendations for pulmonary nodules are as follows: According to the UPDATED 2017 Fleischner Society recommendations, the advised follow-up imaging for solid nodules < 6 mm is: HIGH RISK PATIENT: Optional CT at 12 months. Discharge Plan Discharge Anticipated Discharge Date/Time: 11/06/23 12:14 Patient Disposition: Home, Self-Care Discharge Diagnosis: Acute hypoxemic respiratory failure secondary to Recurrent pleural effusion: [id number] inflammatory, mild copd excerebation Referrals: Jonel Forrester MD [Primary Care Provider] - 1 Week Discharge Medications: New levofloxacin 750 mg tablet 750 mg PO DAILY Qty: 7 0RF codeine-guaifenesin 10-100 mg/5 mL Liquid 10 ml PO Q4H PRN (Reason: Cough) Qty: 120 0RF Continued albuterol sulfate 2.5 mg /3 mL (0.083 %) solution for nebulization 2.5 mg inhalation Q4-6H PRN (Reason: shortness of breath or wheezing) 30 Days Qty: 360 6RF Privigen 10 % solution 40 g IV Q4W 28 Days Qty: 400 12RF Trelegy Ellipta 100-62.5-25 mcg Blister With Device 1 inh inhalation RDAILY Qty: 60 0RF Xolair 150 mg/mL syringe 150 mg subcut QMONTH bumetanide 1 mg tablet 1 mg PO BID Discontinued ibuprofen 800 mg tablet 800 mg PO TID PRN (Reason: pain) Discharge Orders: Discharge Order (Routine); Ordered 11/06/23 Ordered By: Jose Roberto Galindo Diet: Advance to usual diet Activity on Discharge: As tolerated Stand Alone Forms: Patient Portal Discharge page Care Plan Goals: Patient was admitted due to shortness of breath and hypoxia-found to have right- sided pleural effusion recurrent also COPD exacerbation, in addition has history of Pseudomonas in the sputum.: Patient was treated with nebs, IV Zosyn, right- sided pleurocentesis was done: Pleural fluid-has leukocytosis predominantly lymphocytic, Blood culture negative.Patient leukocytosis similar, no fever, shortness of breath improved now at baseline, off oxygen, pleural fluid culture preliminary negative. Pleural cytology pending. In addition patient's echo ef seems 59%(fine). Patient was seen by Pulmonary-recommended to switch antibiotic to Levaquin for 1 week for possible inflammatory effusion. Patient will follow up with Pulmonary outpatient with cytology results. Above management discussed with the patient and his in detail length they both understand and in agreement with the above plan. Time spent 50 minute. Patient is to follow up with Pulmonary outpatient Health Concerns: As above. Plan of Treatment: As above. Assessment: As above. Patient Instructions: Pneumonia (DC)
[2023-11-06] MEDS: levoFLOXacin 750 MG TABLET PO (12:51)
--- NOTE | 2023-11-06 14:18 | P.PNPL_ITS ---
Subjective Subjective Date of Service: 11/06/23 Interval history: Respiratory status at baseline. Objective Data Labs 11/04/23 06:23 11/04/23 22:48 Microbiology Microbiology Results: Microbiology 11/04/23 16:20 Pleural Fluid Gram Stain - Final 11/04/23 16:20 Pleural Fluid Routine Culture - Preliminary No growth to date. 11/04/23 16:20 Pleural Fluid Anaerobic Culture - Preliminary No growth to date. 11/03/23 16:01 Blood - Venous Blood Culture - Preliminary No growth after 48 hours. 11/03/23 16:01 Blood - Venous Blood Culture - Preliminary No growth after 48 hours. Physical Exam 2 Vital Signs: Vital Signs: Last Vital Signs Temp 98.1 F 11/06/23 11:07 Pulse 88 11/06/23 11:07 Resp 16 11/06/23 11:07 BP 107/66 11/06/23 11:07 Pulse Ox 94 11/06/23 11:07 O2 Del Method Room Air 11/06/23 11:07 O2 Flow Rate 1 11/05/23 08:00 Oxygen Flow Rate 3 11/03/23 14:38 BMI result Body Mass Index 29.8 Const: General: no acute distress, alert and awake Eyes: Sclerae: sclerae normal EOM: EOMs intact bilaterally Neck: Neck: Yes no lymphadenopathy, Yes trachea midline and Yes supple Resp: Effort & Inspection: normal respiratory effort and no respiratory distress Auscultation: clear to auscultation bilaterally Cardio: Rate: regular rate Rhythm: regular rhythm Heart sounds: no gallops, no murmurs and no rubs GI: Palpation (GI): Soft to palpation and Other GI palpation findings present ( Nontender) Auscultation: normal bowel sounds Extrem: General: Yes no pedal edema, No clubbing and No cyanosis Procedures Date of Service Date of Service: 11/06/23 Assessment and Plan Assessment and plan (1) IgG deficiency: Status: Acute (2) Pneumonia: Status: Acute (3) Recurrent pleural effusion on right: Status: Acute Plan Impression: 58-year-old woman and with underlying COPD with hypogammaglobulinemia and recurrent pulmonary Pseudomonas infections and recurrent right pleural effusion with admitted with acute hypoxic respiratory failure. Now status post right-sided thoracentesis with drainage of approximately 1 L insignificant improvement in respiratory status. Recommendations: Pleural studies still pending. Unclear etiology recurrent effusion, likely inflammatory. Cytology is pending. Consider 10-14 days' course of Levaquin and slow taper of prednisone over next 3-4 weeks. Time Spent With Patient Time: Total time managing care of this patient today ____ minutes. Progress Note: Quality Stroke Does the patient have a stroke diagnosis?: No
[2023-11-06] MEDS: predniSONE 20 MG TABLET 40 MG PO (14:43)
[2023-11-13 14:38] LABS: Total Protein Pleural Fluid 4.1
[2023-11-13 14:39] LABS: LDH Pleural Fluid 156
[2023-11-13 14:40] LABS: Glucose Pleural Fluid 194
== END 2023-11-06 14:50 | disposition home or self-care (01) | DRG 140 ==
LOC: HO.ED 17:13 → HO.EDOVER 18:16 → HO.IMC 11-04 10:31
PROVIDERS: Internal Medicine; Physician Assistant Medical; Student in an Organized Health Care Education/Training Program; Admitting Provider Student in an Organized Health Care Education/Training Program; Emergency Provider Emergency Medicine; PCP Internal Medicine; Visit Provider Internal Medicine
DX: J44.0 Chronic obstructive pulmonary disease with (acute) lower respiratory infection (principal); J96.01 Acute respiratory failure with hypoxia; D80.3 Selective deficiency of immunoglobulin G [IgG] subclasses; J90 Pleural effusion, not elsewhere classified; J18.9 Pneumonia, unspecified organism; J44.1 Chronic obstructive pulmonary disease with (acute) exacerbation; E87.6 Hypokalemia; Z20.822 Contact with and (suspected) exposure to COVID-19; Z87.891 Personal history of nicotine dependence; Z79.899 Other long term (current) drug therapy
CPT/HCPCS: 0241U; 32555; 36415; 71046; 71250; 80048; 80076; 82042; 82803; 82945; 83605; 83615; 83690; 83735; 83880; 84157; 84443; 84484; 85025; 85027; 85379; 85610; 85730; 87040; 87070; 87073; 87205; 88112; 88305; 89051; 93005; 93306; 93356; 94618; 94640; 99285; J0456; J1650; J2543; J2920; J2930; J3370; Q9957

== ENCOUNTER → 2023-11-03 14:50 | Outpatient (BNV) | payer OTHER, SELFPAY | PROVIDERS: Admitting Provider Student in an Organized Health Care Education/Training Program; Emergency Provider Emergency Medicine; PCP Internal Medicine; Visit Provider Internal Medicine | DX: R07.9 Chest pain, unspecified (principal) | CPT/HCPCS: 93010 ==

== ENCOUNTER 2023-11-03 17:57 | Outpatient (BNV) | payer OTHER, SELFPAY | END 2023-11-05 07:00 | PROVIDERS: Admitting Provider Student in an Organized Health Care Education/Training Program; Emergency Provider Emergency Medicine; PCP Internal Medicine; Visit Provider Internal Medicine | DX: I77.810 Thoracic aortic ectasia (principal); R06.02 Shortness of breath | CPT/HCPCS: 93306; 93356 ==

== ENCOUNTER 2023-11-03 17:57 | Outpatient (BNV) | payer OTHER, SELFPAY | END 2023-11-04 16:00 | PROVIDERS: Admitting Provider Student in an Organized Health Care Education/Training Program; Emergency Provider Emergency Medicine; PCP Internal Medicine; Visit Provider Student in an Organized Health Care Education/Training Program | DX: J90 Pleural effusion, not elsewhere classified (principal) | CPT/HCPCS: 32555 ==

== ENCOUNTER → 2023-11-03 17:57 | Outpatient (BNV) | payer OTHER, SELFPAY | PROVIDERS: Admitting Provider Student in an Organized Health Care Education/Training Program; Emergency Provider Emergency Medicine; PCP Internal Medicine; Visit Provider Internal Medicine Pulmonary Disease | DX: J90 Pleural effusion, not elsewhere classified (principal); J18.9 Pneumonia, unspecified organism; D80.3 Selective deficiency of immunoglobulin G [IgG] subclasses | CPT/HCPCS: 99222; 99232 ==

== ENCOUNTER → 2023-11-03 17:57 | Outpatient (BNV) | payer OTHER, SELFPAY | PROVIDERS: Admitting Provider Student in an Organized Health Care Education/Training Program; Emergency Provider Emergency Medicine; PCP Internal Medicine; Visit Provider Student in an Organized Health Care Education/Training Program | DX: D80.3 Selective deficiency of immunoglobulin G [IgG] subclasses (principal); J18.9 Pneumonia, unspecified organism; J44.9 Chronic obstructive pulmonary disease, unspecified; J90 Pleural effusion, not elsewhere classified | CPT/HCPCS: 99223; 99232; 99239 ==

== ENCOUNTER 2023-11-18 12:00 | Outpatient (RCR) | payer OTHER, SELFPAY ==
--- NOTE | 2023-10-22 14:16 | MHC.PT.EP ---
[facility] [place] Office [place] Office [place] Office [address] Tarik Mendoza [address] [phone] F: [phone] F: [phone] F: [phone] F: [phone] Physical Therapy Plan of Care Date of Evaluation: 10/22/23 Date of Surgery: 07/16/24 Diagnosis: S/P L rotator cuff repair Assessment: Talon is a 58 year old male who is referred to PT for S/P L RTC repair . He had the surgery on 07/16 and he is currently more than 3 months post op. He had 16 PT visits in [place] and is now here in PT as he continues to have ROM and strength deficits. On PT examination today he presented with 6/10 pain with shoulder over head motion, L SL, decreased shoulder and scap strength, altered posture, altered shoulder mechanics and impaired posture. He lives with his and still needs assistance to dress his upper body. He compensates by using R UE for other ADLS. 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 He would benefit from skilled PT to address the aforementioned impairments and improve tolerance to functional activities. Frequency and Duration: The patient will be seen 2/week for 8 weeks Short Term Goals: 1. Pt will have 50% decrease in pain which will enable him to tolerate L SL for sleeping in 2 weeks. 2. Pt will be able to move L shoulder through all planes of motion with a pain of no more than 2/10 which will enable him to use L UE for dressing in 4 weeks. Shelter Goals: 1. Pt will demonstrate an increase in muscle strength by 1 grade which will enable him to use L UE for ADLS without pain in 6 weeks. 2. Pt will be independent with all HEP for symptom management and maintenance following d/c in 8 weeks. Treatment Plan: Modalities to reduce pain, spasms and effusion. Manual therapy to restore motion and function. Therapeutic exercise to improve strength and flexibility. Neuromuscular re-education for posture and balance. Therapeutic activities to return to functional activities of daily living. Electronically signed by: Joyce Jacobs PT DPT Please sign and return to therapist. Thank you for your referral.
--- NOTE | 2024-03-29 08:18 | MHC.PT.DC ---
[facility] [place] Office [place] Office [place] Office [address] Tarik Mendoza [address] [phone] F: [phone] F: [phone] F: [phone] F: [phone] Physical Therapy Discharge Report Diagnosis: S/P L rotator cuff repair Date of Surgery: 07/16/24 Date of Evaluation: 10/22/23 Date of Discharge: 11/18/23 Treatments to Date: 8 Cancellations to Date: 0 No Shows to Date: 0 Discharge Status: Improved Function Independent with HEP Patient Elected to Stop Discharge Summary: Talon chose to D/C himself 2* to returning to work now. AROM Gqjl=041*,ER=50* PROM Tobf=495*,ER=65 Significant improvement w/SPADI Strength 5/5 flex/abd/Ext , IR and ER=4/5 Electronically signed by: Joyce Jacobs PT DPT Please sign and return to therapist. Thank you for your referral.
== END 2024-03-29 08:18 | disposition home or self-care (01) ==
LOC: HO.PT 12:00
PROVIDERS: PCP Internal Medicine; Visit Provider Orthopaedic Surgery
DX: Z98.890 Other specified postprocedural states (principal)
CPT/HCPCS: 97110; 97140; 97161

== ENCOUNTER 2023-12-09 13:06 | Outpatient (REF) | payer OTHER, SELFPAY ==
--- NOTE | ~2023-12-09 | XR_ITS ---
EXAMINATION: XR CHEST CLINICAL INFORMATION: Dyspnea. Patient reports chest pain COMPARISON: Frontal view 11/03/23 TECHNIQUE: 2 views of the chest were obtained. FINDINGS: Very mild indentation along the lower left side of the trachea unchanged. Slight tortuosity aorta. The cardiac size within normal limits. The central vessels are prominent and indistinct. Large lung volumes. Diffuse reticular opacities. There is blunting of the costophrenic sulci. There has been improvement in the right lateral costophrenic sulcus region. There is biapical thickening. There is no pneumothorax. There are osteophytes in the spine XR/XR chest 2V IMPRESSION: Vascular congestion and interstitial opacities with small amounts of pleural density. Pattern could reflect fluid overload or interstitial edema superimposed upon underlying chronic lung disease.
== END 2023-12-09 13:07 | disposition home or self-care (01) ==
LOC: HO.XRAY 13:06
PROVIDERS: PCP Internal Medicine; Visit Provider Internal Medicine Pulmonary Disease
DX: J44.9 Chronic obstructive pulmonary disease, unspecified (principal); D80.1 Nonfamilial hypogammaglobulinemia; R06.00 Dyspnea, unspecified; R06.01 Orthopnea; F17.210 Nicotine dependence, cigarettes, uncomplicated
CPT/HCPCS: 71046

== ENCOUNTER 2023-12-09 13:06 | Outpatient (AMB) | payer OTHER, SELFPAY ==
--- NOTE | 2023-12-09 13:17 | A.OFFVIS_ITS ---
Vital Signs 12/09/23 13:18 Height 6 ft 2 in Weight 223 lb 12.307 oz BMI 28.7 BP 114/62 Blood Pressure Location Lt brachial Position Sitting Pulse 94 Pulse Source Doppler Pulse Oximetry (%) 92 Oxygen Delivery Method Room Air Intake Visit Reasons: productive cough and wheeze Allergies No Known Allergies Allergy (Verified 11/03/23 14:49) HPI HPI productive cough and wheeze: Details: 58-year-old gentleman, active 40+ pack-year smoker, followed for moderate asthma/ COPD overlap syndrome and cough.Patient has been hospitalized at [facility] for bilateral pleural effusions with unclear etiology. His rheumatologic, cardiac, and pulmonary workup was negative. He cannot afford Stiolto or Anoro and has been using duo nebs. Continues to complain of dyspnea with intermittent bouts of bronchitic symptoms med that respond poorly to courses of antibiotics and prednisone. He has been tried on diuretic with no significant changes in his symptoms. He only derives symptomatic benefit from using duo nebs, however it only lasts for several hours between treatments. Patient has been evaluated by Cardiology and now undergoes further testing. He also has had two right-sided thoracentesis, initially with drainage of approximately 900 cc of simple fluid with improvement in his dyspnea. Then patient had COVID requiring brief hospitalization at [facility], after which he developed cough with worsening phlegm and he had a 2nd right-sided thoracentesis, at this time with drainage of only 10 cc of chronic transudative with negative cultures. His sputum cultures have been growing Pseudomonas. He did require several thoracentesis on the right side with drainage of approximately 1 L of fluid every time and pleural studies negative for malignancy, but consistent with inflammatory etiology. Today patient presented complain of slowly worsening dyspnea and cough productive of yellowish sputum. His chest x-ray did not demonstrate recurrence of right-sided effusion. He is also complain of swelling of his face particularly in the morning. [facility] Medical History (Updated 12/09/23 @ 14:48 by Luis M Long MD) COPD (chronic obstructive pulmonary disease) IgG deficiency PRUITT (dyspnea on exertion) PICC (peripherally inserted central catheter) in place Fatigue Splenomegaly ETOH abuse Anemia with low platelet count Pulmonary nodules Surgical History (Updated 11/14/23 @ 00:02 by Daniel Kevin) Status post left rotator cuff repair (07/15/23) History of thoracentesis Hx of repair of right rotator cuff (10/25/20) History of colonoscopy History of liver biopsy Family History Father Stroke Mother Cancer Social History Household Members: Spouse Housing: House Do you presently have visiting nurse or other home services: No Patient Tobacco Use Status: Former Tobacco user Quit Date: one year ago Cigarettes Per Day: 10 Years Smoked: 35 yrs Advance Directives Date on File: 09/07/23 service: No Current occupational status: employed 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 Review of Systems Const Denies daytime sleepiness, Denies excessive sweating, Reports fatigue, Denies fever(s), Reports lethargy, Denies malaise, Denies night sweats, Denies snoring and Denies weight loss Eyes Denies blurry vision, Denies itchy eyes and Reports other ( Facial swelling in the morning) ENT Denies nasal congestion, Denies post nasal drip, Denies sinus pain, Denies sinus pressure and Denies other ( Thrush) Card Denies chest pain, Denies pedal edema, Denies dyspnea, Reports dyspnea on exertion, Reports orthopnea and Denies paroxysmal nocturnal dyspnea Resp Reports cough, Denies hemoptysis, Reports excessive phlegm production, Denies dyspnea, Reports dyspnea on exertion, Denies snoring and Denies wheezing GI Denies abdominal pain and Denies heartburn Musc Denies myalgias, Denies arthralgias and Denies joint swelling Skin/Breast Denies rash Neuro Denies memory loss and Denies seizure-like activity Psych Denies abnormal sleep pattern, Denies anxiety and Denies memory loss Endo Denies excessive sweating, Reports fatigue and Denies heat intolerance Rohit/Lymph Denies easy bruising Aller/Immun Denies itchy eyes, Denies seasonal rhinorrhea and Denies wheezing Physical Exam Vital Signs: Last Vital Signs Pulse 94 12/09/23 13:18 BP 114/62 12/09/23 13:18 Pulse Ox 92 12/09/23 13:18 Oxygen Delivery Method Room Air 12/09/23 13:18 BMI result Body Mass Index 28.7 Const General: no acute distress and alert Nutritional Appearance: not obese Orientation/consciousness: Other orientation findings ( oriented) HEENT Head: Yes atraumatic Eyes General: appearance normal, both eyes and all related structures Sclerae: sclerae normal EOM: EOMs intact bilaterally Neck Neck: Yes supple Lymphatic: no lymphadenopathy noted Resp Effort & Inspection: normal respiratory effort and no use of accessory muscles Auscultation: clear to auscultation bilaterally Cardio Rate: regular rate Rhythm: regular rhythm Heart sounds: no gallops, no murmurs and no rubs Skin General skin exam: other ( warm) Extrem General: No clubbing, No cyanosis and No edema Assessment & Plan Assessment & Plan (1) Hypogammaglobulinemia: Code(s): D80.1 - Nonfamilial hypogammaglobulinemia Category: Medical Plan: Patient has been started on IVIG, however he only received 1 dose. Continue with IVIG regimen. (2) Dyspnea: Code(s): R06.00 - Dyspnea, unspecified Category: Medical Plan: Appears to be multifactorial with contribution from underlying COPD and diastolic dysfunction. Results of chest x-ray reviewed, no recurrence of pleural effusion. Appears to have significant immunologic component. Will start on dexamethasone taper as patient did not tolerate prednisone. (3) COPD (chronic obstructive pulmonary disease): Code(s): J44.9 - Chronic obstructive pulmonary disease, unspecified Category: Medical Plan: Baseline controlled on Trelegy and albuterol MDI. Continue current regimen. Now with worsening cough and history of recurrent Pseudomonas. Will treat with a course of Levaquin. (4) Orthopnea: Code(s): R06.01 - Orthopnea Category: Medical Plan: Worsening orthopnea. Will add metolazone to current regimen of bumetanide. Orders: Orders XR chest 2V Today R06.00 - Dyspnea, unspecified Medications: New dexamethasone take 3 tablets daily for 7 days, then go down by 1 tab every 7 days. 2 mg PO DIRECTED 42 tabs 0RF metolazone 5 mg PO MOWEFR 13 tabs 6RF 30 days Refilled levofloxacin 750 mg PO DAILY 14 tabs 0RF Coding Level of Care Code Est Pt Level 5 (76304) Diagnoses Hypogammaglobulinemia D80.1 Dyspnea R06.00 COPD (chronic obstructive pulmonary disease) J44.9 Orthopnea R06.01
[2023-12-09 13:18] VITALS: BP 114/62; PULSE 94; O2SAT 92; BMI 28.7
== END 2023-12-09 14:32 | disposition home or self-care (01) ==
PROVIDERS: PCP Internal Medicine; Visit Provider Internal Medicine Pulmonary Disease
DX: D80.1 Nonfamilial hypogammaglobulinemia (principal); R06.00 Dyspnea, unspecified; J44.9 Chronic obstructive pulmonary disease, unspecified; R06.01 Orthopnea
CPT/HCPCS: 99214

== ENCOUNTER 2023-12-21 13:49 | Outpatient (AMB) | payer OTHER, SELFPAY ==
--- NOTE | 2023-12-21 13:55 | A.OFFVIS_ITS ---
Intake Visit Reasons: OV-LT shld RTC repair 07/15/23NE-follow up Intake Note: Talon is a 58 year old left hand dominant male who presents to the office today for a PO LT shoulder RTC repair done on 07/15/23. Patient reports that he is doing well with no concerns. Allergies No Known Allergies Allergy (Verified 12/21/23 13:56) HPI HPI OV-LT shld RTC repair 07/15/23NE-follow up: Details: Talon is a 58 year old left hand dominant male who presents to the office today for a PO LT shoulder RTC repair done on 07/15/23. Patient reports that he is doing well with no concerns. Reports that he was being seen at [facility] whom was not helpful post operatively, however once he was seen with us at [facility] his symptoms had resolved significantly [facility] Medical History COPD (chronic obstructive pulmonary disease) IgG deficiency PRUITT (dyspnea on exertion) PICC (peripherally inserted central catheter) in place Fatigue Splenomegaly ETOH abuse Anemia with low platelet count Pulmonary nodules Surgical History Status post left rotator cuff repair (07/15/23) History of thoracentesis Hx of repair of right rotator cuff (10/25/20) History of colonoscopy History of liver biopsy Family History Father Stroke Mother Cancer Social History Household Members: Spouse Housing: House Do you presently have visiting nurse or other home services: No Patient Tobacco Use Status: Former Tobacco user Quit Date: one year ago Cigarettes Per Day: 10 Years Smoked: 35 yrs Advance Directives Date on File: 09/07/23 service: No Current occupational status: employed 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 Caution with overhead lifting. Coding Level of Care Code Est Pt Level 3 (49182) Diagnoses Status post left rotator cuff repair Z98.890
== END 2023-12-21 14:00 | disposition home or self-care (01) ==
PROVIDERS: PCP Internal Medicine; Visit Provider Orthopaedic Surgery
DX: Z47.89 Encounter for other orthopedic aftercare (principal); M75.102 Unspecified rotator cuff tear or rupture of left shoulder, not specified as traumatic
CPT/HCPCS: 99212

== ENCOUNTER → 2023-12-21 13:49 | Outpatient (BNVA) | payer OTHER, SELFPAY | PROVIDERS: PCP Internal Medicine; Visit Provider Orthopaedic Surgery ==

== ENCOUNTER 2024-01-05 13:55 | Outpatient (AMB) | payer OTHER, SELFPAY ==
[2024-01-05 14:02] VITALS: BP 118/67; PULSE 103; O2SAT 92; BMI 28.3
--- NOTE | 2024-01-05 14:02 | MHC.OFFVIS ---
Vital Signs 01/05/24 14:02 Height 6 ft 2 in Weight 220 lb 7.396 oz BMI 28.3 BP 118/67 Blood Pressure Location Rt brachial Position Sitting Pulse 103 H Pulse Source Doppler Pulse Oximetry (%) 92 Oxygen Delivery Method Room Air Intake Visit Reasons: Pleural Effusion Allergies No Known Allergies Allergy (Verified 01/05/24 14:09) HPI HPI Pleural Effusion: Details: 58-year-old gentleman, active 40+ pack-year smoker, followed for moderate asthma / COPD overlap syndrome, recurrent pulmonary effusions, hypogammaglobulinemia, and recurrent pulmonary infections. Patient has had several recurrences of pleural effusions, that flow tapped and showed to be sterile lymphocytic transudative. His sputum culture grew Pseudomonas several times and he required multiple treatments with p.o. Levaquin and/or IV ertapenem for recurrent pulmonary infections. He was noted to have hypogammaglobulinemia and was started on IVIG, now having received 2 infusions, he was noted to have an abdominal hive like lesion. Of note, patient is also on Xolair from his community organization director for urticaria. In terms of respiratory medications he is on Trelegy and albuterol MDI/nebs. Patient is also taking bumetanide 1 mg daily with improved control of his lower extremity edema and pulmonary edema. He was not able to tolerate metolazone. After the last office visit patient did have several exacerbations of his underlying recurrent productive cough treated with Levaquin that have significantly improved. He does complain of significant facial swelling in the morning. [facility]LY [facility] Medical History (Updated 01/05/24 @ 16:23 by Lius M Long MD) PRUITT (dyspnea on exertion) COPD (chronic obstructive pulmonary disease) IgG deficiency PICC (peripherally inserted central catheter) in place Fatigue Splenomegaly ETOH abuse Anemia with low platelet count Pulmonary nodules Surgical History Status post left rotator cuff repair (07/15/23) History of thoracentesis Hx of repair of right rotator cuff (10/25/20) History of colonoscopy History of liver biopsy Family History Father Stroke Mother Cancer Social History Household Members: Spouse Housing: House Do you presently have visiting nurse or other home services: No Patient Tobacco Use Status: Former Tobacco user Quit Date: one year ago Cigarettes Per Day: 10 Years Smoked: 35 yrs Advance Directives Date on File: 09/07/23 service: No Current occupational status: employed 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 Review of Systems Const Denies daytime sleepiness, Denies excessive sweating, Denies fatigue, Denies fever(s), Denies lethargy, Denies malaise, Denies night sweats, Denies snoring and Denies weight loss Eyes Denies blurry vision and Denies itchy eyes ENT Denies nasal congestion, Denies post nasal drip, Denies sinus pain, Denies sinus pressure and Denies other ( Thrush) Card Denies chest pain, Denies pedal edema, Denies dyspnea, Reports dyspnea on exertion, Denies orthopnea and Denies paroxysmal nocturnal dyspnea Resp Reports cough, Denies hemoptysis, Denies excessive phlegm production, Denies dyspnea, Reports dyspnea on exertion, Denies snoring and Denies wheezing GI Denies abdominal pain and Denies heartburn Musc Denies myalgias, Denies arthralgias and Denies joint swelling Skin/Breast Reports rash (Periumbilical) and Reports skin swelling (Facial swelling in the morning) Neuro Denies memory loss and Denies seizure-like activity Psych Denies abnormal sleep pattern, Denies anxiety and Denies memory loss Endo Denies excessive sweating, Denies fatigue and Denies heat intolerance Rhoit/Lymph Denies easy bruising Aller/Immun Denies itchy eyes, Denies seasonal rhinorrhea and Denies wheezing Physical Exam Vital Signs: Last Vital Signs Pulse 103 H 01/05/24 14:02 BP 118/67 01/05/24 14:02 Pulse Ox 92 01/05/24 14:02 Oxygen Delivery Method Room Air 01/05/24 14:02 BMI result Body Mass Index 28.3 Const General: no acute distress and alert Nutritional Appearance: not obese Orientation/consciousness: Other orientation findings ( oriented) HEENT Head: Yes atraumatic Eyes General: appearance normal, both eyes and all related structures Sclerae: sclerae normal EOM: EOMs intact bilaterally Neck Neck: Yes supple Lymphatic: no lymphadenopathy noted Resp Effort & Inspection: normal respiratory effort and no use of accessory muscles Auscultation: clear to auscultation bilaterally Cardio Rate: regular rate Rhythm: regular rhythm Heart sounds: no gallops, no murmurs and no rubs Skin General skin exam: other ( warm) Extrem General: No clubbing, No cyanosis and No edema Assessment & Plan Assessment & Plan (1) Hypogammaglobulinemia: Code(s): D80.1 - Nonfamilial hypogammaglobulinemia Category: Medical Plan: Continue on IVIG. (2) COPD (chronic obstructive pulmonary disease): Code(s): J44.9 - Chronic obstructive pulmonary disease, unspecified Category: Medical Plan: Continue current regimen of Trelegy and albuterol nebs/MDI. (3) Chronic cough: Code(s): R05.3 - Chronic cough Category: Medical Plan: Appears to be related to recurrent Pseudomonas infections on the background of hypogammaglobinemia. Patient is interested in 2nd opinion, will refer to [facility] and [facility]'s. (4) Orthopnea: Code(s): R06.01 - Orthopnea Category: Medical Plan: Improved control on Bumex 1 mg daily. Continue current regimen. Orders: Referrals Pulmonary Medicine Referral D80.1 - Nonfamilial hypogammaglobulinemia, R05.3 - Chronic cough Medications: Discontinued metolazone Discontinued Reason: Doctor's Order 5 mg PO MOWEFR 30 days 13 tabs 6RF Coding Level of Care Code Est Pt Level 5 (47924) Diagnoses Hypogammaglobulinemia D80.1 COPD (chronic obstructive pulmonary disease) J44.9 Chronic cough R05.3 Orthopnea R06.01
== END 2024-01-05 14:49 | disposition home or self-care (01) ==
PROVIDERS: PCP Internal Medicine; Visit Provider Internal Medicine Pulmonary Disease
DX: D80.1 Nonfamilial hypogammaglobulinemia (principal); J44.9 Chronic obstructive pulmonary disease, unspecified; R05.3 Chronic cough; R06.01 Orthopnea
CPT/HCPCS: 99214

== ENCOUNTER → 2024-01-05 13:55 | Outpatient (BNVA) | payer OTHER, SELFPAY | PROVIDERS: PCP Internal Medicine; Visit Provider Internal Medicine Pulmonary Disease ==

== ENCOUNTER 2024-01-17 13:05 | Inpatient (IN) | payer OTHER, SELFPAY ==
[2024-01-17] VITALS (7 sets, daily range): BP systolic 100–123; BP diastolic 57–96; PULSE 94–116; RESP 18–26; TEMP 36.8–39.3; O2SAT 90–97; BMI 27.9
--- NOTE | ~2024-01-17 | XR_ITS ---
EXAMINATION: XR CHEST CLINICAL INFORMATION: Fluid overload versus pneumonia COMPARISON: Previous chest x-ray most recent November [address] October 2023 TECHNIQUE: Frontal view of the chest was obtained. FINDINGS: The cardiac and mediastinal contours are stable. There are increased central bronchovascular and lower lung markings. There is blunting at the bilateral costophrenic angle suggestive of small bilateral pleural effusions. There is no pneumothorax. There are degenerative changes of the spine. Surgical tacks or anchors project over the left humeral head. XR/XR chest 1V IMPRESSION: Increased bronchovascular markings and small bilateral pleural effusions. Differential would include airways disease and mild fluid overload.
--- NOTE | 2024-01-17 13:25 | ED_ITS ---
HPI - General Adult General Chief complaint: Dyspnea Stated complaint: Low O2/Fever Time Seen by Provider: 01/17/24 15:49 Source: patient and family () Mode of arrival: ambulatory Limitations: no limitations History of Present Illness ED Provider: Kellen Pozo NP HPI narrative: Patient is a 58-year-old male with history of active 40+ pack-year smoker, followed for moderate asthma / COPD overlap syndrome, recurrent pulmonary effusions, hypogammaglobulinemia, and recurrent pulmonary infections, recently finished a 2 week course of levofloxacin for hx of pseudomonas presenting to the emergency department with fever, dyspnea at rest, and hypoxia for the past 2 days. Tmax of 101 at home. Using OTC cold medication with temporary relief, then fever returns. Symptoms worse in the morning. Denies chest pain or palpitations. Reports sweats, chills. Unable to ambulate more than a few feet without difficulty. Denies abdominal pain, nausea, vomiting, diarrhea. MD complaint: dyspnea, fever Onset (ago): day(s) Severity: severe Associated symptoms: fever/chills Treatments prior to arrival: other Related Data Home Medications ?Medication ?Instructions ?Recorded ?Confirmed omalizumab 150 mg/mL subcutaneous 150 mg subcut QMONTH 11/03/23 01/17/24 syringe (Xolair) albuterol sulfate 2.5 mg/3 mL 2.5 mg inhalation Q6H PRN 01/17/24 01/17/24 (0.083 %) solution for nebulization shortness of breath or wheezing Previous Rx's ?Medication ?Instructions ?Recorded fluticasone fur. 100 mcg-umeclid 1 inh inhalation RDAILY #60 ea 09/09/23 62.5 mcg-vilant 25 mcg inhalat.powder (Trelegy Ellipta) immune glob,gamm(IgG) 10 %-pro-IgA 40 g IV Q4W 28 days #400 mL 11/04/23 0 to 50 mcg/mL intravenous solution (Privigen) bumetanide 1 mg tablet 1 mg PO BID #180 tabs 01/14/24 dexamethasone 2 mg tablet See Rx Instructions .Route 01/19/24 .COMPLEX #9 tabs doxycycline monohydrate 100 mg 100 mg PO Q12H #36 caps 01/19/24 capsule levofloxacin 500 mg tablet 500 mg PO Q24H #18 tabs 01/19/24 Allergies Allergy/AdvReac Type Severity Reaction Status Date / Time prednisone Allergy Severe Angioedema Verified 01/19/24 10:40 Review of Systems 2 Review of Systems: As per HPI. Yes all other systems are reviewed and are negative Constitutional: Constitutional: Reports as per HPI [facility] Past Medical History Medical History (Updated 01/18/24 @ 09:50 by Yunior Acharya MD) Bronchiectasis PRUITT (dyspnea on exertion) COPD (chronic obstructive pulmonary disease) IgG deficiency PICC (peripherally inserted central catheter) in place Fatigue Splenomegaly ETOH abuse Anemia with low platelet count Pulmonary nodules Surgical History Status post left rotator cuff repair (07/15/23) History of thoracentesis Hx of repair of right rotator cuff (10/25/20) History of colonoscopy History of liver biopsy Family History Family History Father Stroke Mother Cancer Social History Social History Household Members: Spouse Housing: House Do you presently have visiting nurse or other home services: No Alcohol intake: never Patient Tobacco Use Status: Former Tobacco user Cigarettes Per Day: 10 Years Smoked: 35 yrs Advance Directives Date on File: 09/07/23 service: No Current occupational status: employed 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 Vital Signs: Vital Signs - 24 hr 01/17/24 13:13 01/17/24 13:52 01/17/24 16:27 Temperature 98.9 F 99.3 F 102.7 F H Pulse Rate 110 H 96 Respiratory Rate 26 H 18 Blood Pressure 123/96 H 119/77 Pulse Oximetry 90 L 97 Oxygen Delivery Method Room Air Nasal Cannula Oxygen Flow Rate 2 01/17/24 16:33 01/17/24 16:38 01/17/24 18:00 Temperature 102.7 F H 99.1 F Pulse Rate 116 H 115 H Respiratory Rate 22 H 20 Blood Pressure 100/59 L Pulse Oximetry 93 Oxygen Delivery Method Nasal Cannula Oxygen Flow Rate 3 01/17/24 20:58 Temperature 98.2 F Pulse Rate 94 Respiratory Rate 18 Blood Pressure 106/57 L Pulse Oximetry 94 Oxygen Delivery Method Room Air Oxygen Flow Rate BMI result Body Mass Index 27.9 Vital signs have been reviewed and appear to be correct. Blood pressure normal. Heart rate tachycardic. Respiratory rate initially tachypneic. Temperature normal. Oxygen saturation low, requiring supplemental O2. Const General: cooperative and no acute distress Orientation/consciousness: oriented to person, oriented to place, oriented to time and patient oriented x3 Limitations: no limitations HENMT Head: Yes normocephalic and Yes atraumatic Ears: external ears normal General nose exam: Normal external nose present Mouth: oropharynx normal and moist mucous membranes Throat: Yes uvula midline Eyes Pupils: Equal, round and reactive pupils present Neck Neck: Yes normal visual inspection and Yes supple Resp Effort & Inspection: not able to speak in complete sentences, labored, tachypneic and uses accessory muscles Auscultation: wheezes expiratory wheezes and throughout Cardio Rhythm: regular rhythm Heart sounds: S1 normal heart sound present and S2 normal heart sound present GI Palpation (GI): Soft to palpation and nontender Auscultation: normoactive bowel sounds General: Yes no CVA tenderness Back/Spine/Pelvis Back: no CVA tenderness Skin General skin exam: elasticity normal, turgor normal and other (flushed, hot to touch) Neuro General: oriented to person, oriented to place, oriented to time, patient oriented x3, moves all extremities, no focal motor deficits and CN's II-XI intact bilaterally Cranial nerves: Yes Equal, round and reactive pupils present Cognition (Neuro): normal cognition Extrem General: Yes full ROM, Yes no pedal edema and Yes no calf tenderness Psych Mental Status: mental status grossly normal Affect: normal affect Thought process: Normal thought process present Course Course Course Narrative: RME: [employer]; DOne by RODRICK Tripathi. 58-year-old male history of COPD and pleural effusion presents to ED for body swelling, shortness of breath on exertion, coughing with wheezing. Patient has coarse crackles and lungs sound wet. Lower extremity negative for swelling or pitting edema. states right facial droop always occurred due to body swelling. Patient brought into the ED immediately Medications Administered Discontinued Medications Generic Name Dose Route Start Last Admin Trade Name Freq PRN Reason Stop Dose Admin Acetaminophen 650 mg 01/17/24 14:47 01/17/24 14:53 Acetaminophen 325 Mg Tablet PO 01/17/24 14:48 650 mg ONCE ONE Administration Acetaminophen 650 mg 01/17/24 21:23 01/18/24 15:10 Acetaminophen 325 Mg Tablet PO 650 mg Q6H PRN Administration Pain, Mild (Pain Scale 1-3) Albuterol/Ipratropium 3 ml 01/18/24 08:00 01/19/24 11:16 Albuterol/Iprat 2.5/0.5mg 3 Ml Ampul.Neb INHALE 3 ml RQ4H WHILE AWAKE REY Administration Bumetanide 1 mg 01/18/24 09:00 01/19/24 07:44 Bumetanide 1 Mg Tablet PO 1 mg BID REY Administration Protocol Albuterol Sulfate 5 mg/ 0 mg 01/17/24 16:29 01/17/24 16:32 Albuterol/Ipratropium 3 ml INHALE 01/17/24 16:30 1 each ONCE ONE Administration Diphenhydramine HCl 25 mg 01/18/24 17:21 01/18/24 17:41 Diphenhydramine Hcl 50 Mg/Ml Vial IVPUSH 01/18/24 17:22 25 mg ONCE ONE Administration Doxycycline Monohydrate 100 mg 01/19/24 10:00 01/19/24 10:21 Doxycycline Monohydrate 100 Mg Capsule PO 100 mg Q12H REY Administration Enoxaparin Sodium 40 mg 01/17/24 21:30 01/18/24 21:00 Enoxaparin Sodium 40 Mg/0.4 Ml Syringe SUBCUT 40 mg Q24H REY Administration Famotidine 20 mg 01/18/24 17:30 01/18/24 17:41 Famotidine/Pf 20 Mg/2 Ml Vial IVPUSH 01/18/24 17:31 20 mg ONCE ONE Administration Fluticasone/Umeclidinium/Vilanterol 1 puff 01/18/24 08:00 01/19/24 07:47 Fluticasone/Umeclidinium/Vilanterol 100/62.5/25 Blst.W.Dev INHALE 1 puff RDAILY REY Administration Cefepime HCl 2 gm/ Sodium 50 mls @ 100 mls/hr 01/17/24 16:15 01/17/24 17:36 Chloride IV 01/17/24 16:44 Infused ONCE ONE Infusion Azithromycin 500 mg/ Sodium 250 mls @ 125 mls/hr 01/17/24 16:15 01/17/24 20:27 Chloride IV 01/17/24 18:14 Infused ONCE ONE Infusion Magnesium Sulfate 2 gm in 50 mls @ 25 mls/hr 01/17/24 17:36 01/17/24 20:08 Magnesium Sulfate/H2o IV 01/17/24 19:35 Infused ONCE ONE Infusion Azithromycin 500 mg/ Sodium 250 mls @ 125 mls/hr 01/18/24 17:00 01/18/24 19:31 Chloride IV Infused Q24H REY Infusion Cefepime HCl 1 gm/ Sodium 50 mls @ 100 mls/hr 01/18/24 00:00 01/19/24 09:04 Chloride IV Infused Q8H REY Infusion Ibuprofen 600 mg 01/17/24 16:06 01/17/24 16:37 Ibuprofen 600 Mg Tablet PO 01/17/24 16:07 600 mg ONCE ONE Administration Levofloxacin 500 mg 01/19/24 10:00 01/19/24 10:34 Levofloxacin 500 Mg Tablet PO 500 mg Q24H REY Administration Methylprednisolone Sodium Succinate 125 mg 01/17/24 17:35 01/17/24 18:05 Methylprednisolone Sod Succ 125 Mg/2 Ml Vial IVPUSH 01/17/24 17:36 125 mg ONCE ONE Administration Methylprednisolone Sodium Succinate 40 mg 01/18/24 09:00 01/18/24 08:26 Methylprednisolone Sod Succ 40 Mg/Ml Vial IVPUSH 40 mg Q12H REY Administration Sodium Chloride 3 ml 01/18/24 00:00 01/19/24 07:44 0.9 % Sodium Chloride Flush 3 Ml Syringe IVFLUSH 3 ml QSHIFT REY Administration Medical Decision Making Medical Decision Making [facility] Narrative: Patient is a 58-year-old male with history of active 40+ pack-year smoker, followed for moderate asthma / COPD overlap syndrome, recurrent pulmonary effusions, hypogammaglobulinemia, and recurrent pulmonary infections, recently finished a 2 week course of levofloxacin for hx of pseudomonas presenting to the emergency department with fever, dyspnea at rest, and hypoxia for the past 2 days. On exam patient is awake, A+Ox3, tachypneic, tachycardic, hypoxic on room air, increased WOB, afebrile with oral temp, febrile when rectal temp assessed, normal neurological exam without focal deficits, physical exam findings as above. Given reported symptoms and physical exam findings, initial differential includes COPD exacerbation, bronchitis, pneumonia. Less likely ACS. Patient meeting sepsis criteria at this time but not severe sepsis, IV cefepime and azithromycin ordered. Labs notable for leukocytosis with left shift, lactic wnl, negative troponin. Viral serology negative. X-ray notable for small bilateral pleural effusions. My interpretation is in agreement with the radiologist's interpretation. Spoke with hospitalist who agrees with admission. Differential Diagnosis Differential Diagnoses: The differential diagnosis associated with the presentation includes As per [facility] Admission/Observation Consideration of admission/observation: Escalation of care including admission/observation considered Consult Healthcare Provider Management of the patient was discussed with: Hospitalist Lab Data [facility] Lab Attestation statement: I reviewed the patient's lab results. [facility] 01/18/24 06:01 01/18/24 06:01 Labs: Lab Results 01/17/24 01/17/24 01/17/24 Range/Units 13:26 13:56 16:53 WBC 13.3 H (4.8-10.8) X10*3/uL RBC 4.56 L (4.60-5.80) X10*6/uL Hgb 14.6 (14.0-18.0) g/dl Hct 44.3 (42.0-52.0) % MCV 97.1 (80.0-98.0) fL MCH 32.0 (27.0-33.0) pg MCHC 33.0 (31.0-36.0) g/dl RDW 14.7 (11.0-16.0) % Plt Count 361 D (160-400) X10*3/uL MPV 10.0 (9.4-12.4) fL Immature Gran % (Auto) 0.8 H (0.0-0.4) % Neut % (Auto) 83.9 H (45-73) % Lymph % (Auto) 11.1 L (20-40) % [place] % (Auto) 3.9 (2-11) % Eos % (Auto) 0.0 (0-4) % Baso % (Auto) 0.3 (0-2) % Lymph # (Auto) 1.5 (1.2-4.9) X10*3/uL [place] # (Auto) 0.5 (0.1-1.2) X10*3/uL Eos # (Auto) 0.0 (0.0-0.4) X10*3/uL Baso # (Auto) 0.0 (0.0-0.2) X10*3/uL Abs Immat Gran (auto) 0.11 H (0.00-0.03) X10*3/uL Absolute Neuts (auto) 11.1 H (2.0-8.3) x10*3/uL Absolute Nucleated RBC 0.000 (0.0-0.012) X10*3/uL Nucleated RBC % (auto) 0.0 (0.0-0.2) /100WBC PT 12.9 (11.1-13.3) SEC INR 1.1 (0.9-1.1) APTT 30.7 (26.0-36.8) SEC VBG pH 7.47 H (7.32-7.43) VBG pCO2 32 mmHg VBG pO2 92 mmHg VBG HCO3 23 (22-26) mmol/L VBG O2 Saturation 97.0 % VBG Base Excess 0.8 mmol/L Sodium 139 (135-145) mmol/L Potassium 4.0 (3.3-5.1) mmol/L Chloride 102 (96-108) mmol/L Carbon Dioxide 27 (22-29) mmol/L Anion Gap 14 (12-20) BUN 17 H (9-16) mg/dL Creatinine 0.98 (0.5-1.4) mg/dL Estim Creat Clear Calc 94.3 Estimated GFR > 60 Random Glucose 106 (60-115) mg/dL Lactic Acid 1.5 (0.5-2.0) mmol/L Calcium 9.6 (8.4-10.2) mg/dL Total Bilirubin 1.3 H (0.0-1.0) mg/dL AST 19 (5-37) U/L ALT 13 (0-40) U/L Alkaline Phosphatase 63 (39-117) U/L Troponin I High Sens 3.2 (<3.5-35.0) ng/L B-Natriuretic Peptide 11 (<100) pg/mL Total Protein 6.9 (6.5-8.0) g/dL Albumin 3.9 (3.5-5.0) g/dL Respiratory Panel Garcia Adenovirus (Rapid PCR) (Not Detect.) B.pert (TEM-PCR) (Not Detect.) B.parapertussis DNA PCR (Not Detect.) C. pneumoniae DNA (PCR) (Not Detect.) Coronavirus OC43 (PCR) (Not Detect.) Coronavirus HKU1 (PCR) (Not Detect.) Coronavirus 229E (PCR) (Not Detect.) Coronavirus NL63 (PCR) (Not Detect.) Human Metapneumovir PCR (Not Detect.) Influenza A (RT-PCR) (Not Detect.) Influenza Type A (PCR) NEGATIVE (Negative) Influenza B (RT-PCR) (Not Detect.) Influenza Type B (PCR) NEGATIVE (Negative) M. pneumoniae (PCR) (Not Detect.) Parainfluenza 1 (PCR) (Not Detect.) Parainfluenza 2 (PCR) (Not Detect.) Parainfluenza 3 (PCR) (Not Detect.) Parainfluenza 4 (PCR) (Not Detect.) RSV (PCR) (Not Detect.) RSV RNA Qual (PCR) NEGATIVE (Negative) Entero/Rhino (PCR) (Not Detect.) SARS-CoV-2 RNA (RT-PCR) NEGATIVE (Negative) 01/17/24 Range/Units 18:19 WBC (4.8-10.8) X10*3/uL RBC (4.60-5.80) X10*6/uL Hgb (14.0-18.0) g/dl Hct (42.0-52.0) % MCV (80.0-98.0) fL MCH (27.0-33.0) pg MCHC (31.0-36.0) g/dl RDW (11.0-16.0) % Plt Count (160-400) X10*3/uL MPV (9.4-12.4) fL Immature Gran % (Auto) (0.0-0.4) % Neut % (Auto) (45-73) % Lymph % (Auto) (20-40) % [place] % (Auto) (2-11) % Eos % (Auto) (0-4) % Baso % (Auto) (0-2) % Lymph # (Auto) (1.2-4.9) X10*3/uL [place] # (Auto) (0.1-1.2) X10*3/uL Eos # (Auto) (0.0-0.4) X10*3/uL Baso # (Auto) (0.0-0.2) X10*3/uL Abs Immat Gran (auto) (0.00-0.03) X10*3/uL Absolute Neuts (auto) (2.0-8.3) x10*3/uL Absolute Nucleated RBC (0.0-0.012) X10*3/uL Nucleated RBC % (auto) (0.0-0.2) /100WBC PT (11.1-13.3) SEC INR (0.9-1.1) APTT (26.0-36.8) SEC VBG pH (7.32-7.43) VBG pCO2 mmHg VBG pO2 mmHg VBG HCO3 (22-26) mmol/L VBG O2 Saturation % VBG Base Excess mmol/L Sodium (135-145) mmol/L Potassium (3.3-5.1) mmol/L Chloride (96-108) mmol/L Carbon Dioxide (22-29) mmol/L Anion Gap (12-20) BUN (9-16) mg/dL Creatinine (0.5-1.4) mg/dL Estim Creat Clear Calc Estimated GFR Random Glucose (60-115) mg/dL Lactic Acid (0.5-2.0) mmol/L Calcium (8.4-10.2) mg/dL Total Bilirubin (0.0-1.0) mg/dL AST (5-37) U/L ALT (0-40) U/L Alkaline Phosphatase (39-117) U/L Troponin I High Sens (<3.5-35.0) ng/L B-Natriuretic Peptide (<100) pg/mL Total Protein (6.5-8.0) g/dL Albumin (3.5-5.0) g/dL Respiratory Panel Garcia See Note Adenovirus (Rapid PCR) Not Detected (Not Detect.) B.pert (TEM-PCR) Not Detected (Not Detect.) B.parapertussis DNA PCR Not Detected (Not Detect.) C. pneumoniae DNA (PCR) Not Detected (Not Detect.) Coronavirus OC43 (PCR) Not Detected (Not Detect.) Coronavirus HKU1 (PCR) Not Detected (Not Detect.) Coronavirus 229E (PCR) Not Detected (Not Detect.) Coronavirus NL63 (PCR) Not Detected (Not Detect.) Human Metapneumovir PCR Not Detected (Not Detect.) Influenza A (RT-PCR) Not Detected (Not Detect.) Influenza Type A (PCR) (Negative) Influenza B (RT-PCR) Not Detected (Not Detect.) Influenza Type B (PCR) (Negative) M. pneumoniae (PCR) Not Detected (Not Detect.) Parainfluenza 1 (PCR) Not Detected (Not Detect.) Parainfluenza 2 (PCR) Not Detected (Not Detect.) Parainfluenza 3 (PCR) Not Detected (Not Detect.) Parainfluenza 4 (PCR) Not Detected (Not Detect.) RSV (PCR) Not Detected (Not Detect.) RSV RNA Qual (PCR) (Negative) Entero/Rhino (PCR) Not Detected (Not Detect.) SARS-CoV-2 RNA (RT-PCR) Not Detected (Negative) Independent Interpretation I performed an independent interpretation of an: EKG (sinus tachycardia with bifasicular block, unchanged from prior, rate 117bpm) and Plain X-Ray Interpretation: CXR notable for small bilateral pleural effusions. Radiology Impression Discussion of test interpretation with radiology: I have reviewed the radiologist's reading. Radiologist Impression: XR/XR chest 1V IMPRESSION: Increased bronchovascular markings and small bilateral pleural effusions. Differential would include airways disease and mild fluid overload. External Record Review External record reviewed: Inpatient record, Office record and Outpatient record Prescription Management I considered prescription management with: Antibiotic Discharge Plan Discharge Clinical Impression: COPD exacerbation Patient Disposition: Admitted As Inpatient Interventions: Admission Worksheet (ED) Last Done: 01/18/24 02:13 Discharge Date/Time: 01/18/24 03:13
[2024-01-17 13:34] LABS: MANUAL DIFF FLAG NO
[2024-01-17 13:39] LABS: Imm Gran Pct Auto 0.8 % (0.0-0.4); Mean Corpuscular Volume 97.1 fL (80.0-98.0); Monocytes Percent Auto 3.9 % (2-11); PLT CLUMP 1; Red Cell Distribution Width 14.7 % (11.0-16.0); SCAN SMEAR FLAG 1
[2024-01-17 13:40] LABS: INTERNATIONAL NORM RATIO 1.1 (0.9-1.1); Prothrombin Time 12.9 SEC (11.1-13.3)
[2024-01-17 13:41] LABS: Basophils Percent Auto 0.3 % (0-2); Hematocrit 44.3 % (42.0-52.0); Hemoglobin 14.6 g/dl (14.0-18.0); Imm Gran Abs Auto 0.11 X10*3/uL (0.00-0.03); Lymphocytes Absolute Auto 1.5 X10*3/uL (1.2-4.9); Lymphocytes Percent Auto 11.1 % (20-40); Monocytes Absolute Auto 0.5 X10*3/uL (0.1-1.2); Neutrophils Absolute Auto 11.1 x10*3/uL (2.0-8.3); Neutrophils Percent Auto 83.9 % (45-73); Red Blood Count 4.56 X10*6/uL (4.60-5.80)
[2024-01-17 13:42] LABS: Partial Thromboplastin Time 30.7 SEC (26.0-36.8)
[2024-01-17 13:47] LABS: Platelet Count 361 X10*3/uL (160-400); White Blood Count 13.3 X10*3/uL (4.8-10.8)
[2024-01-17 13:55] LABS: Alanine Aminotransferase 13 U/L (0-40); Albumin Level 3.9 g/dL (3.5-5.0); Alkaline Phosphatase 63 U/L (39-117); Anion Gap 14 (12-20); Aspartate Amino Transferase 19 U/L (5-37); Bilirubin Total 1.3 mg/dL (0.0-1.0); Blood Urea Nitrogen 17 mg/dL (9-16); Calcium 9.6 mg/dL (8.4-10.2); Carbon Dioxide 27 mmol/L (22-29); Chloride 102 mmol/L (96-108); Creatinine Clr Calc Pharmacy 94.3; Estimated Glomerular Filt Rate > 60; Glucose Random 106 mg/dL (60-115); Sodium 139 mmol/L (135-145); Total Protein 6.9 g/dL (6.5-8.0)
[2024-01-17 14:00] LABS: B Type Natriuretic Peptide 11 pg/mL (<100)
[2024-01-17 14:01] LABS: Troponin-I High Sensitivity 3.2 ng/L (<3.5-35.0)
[2024-01-17 14:37] LABS: Lactic Acid 1.5 mmol/L (0.5-2.0)
[2024-01-17] MEDS: Acetaminophen 325 MG TABLET 650 MG PO (14:53)
[2024-01-17 14:59] LABS: Influenza A PCR NEGATIVE (Negative); Influenza B PCR NEGATIVE (Negative); Resp Syncy Virus RNA Qual PCR NEGATIVE (Negative); SARS COV2 PCR INHOUSE NEGATIVE (Negative)
--- NOTE | 2024-01-17 16:07 | ECG_ITS ---
Test Reason : DYSPNEA Blood Pressure : / mmHG Vent. Rate : 117 BPM Atrial Rate : 117 BPM P-R Int : 140 ms QRS Dur : 134 ms QT Int : 356 ms P-R-T Axes : 069 -84 051 degrees QTc Int : 496 ms Sinus tachycardia Right bundle branch block Left anterior fascicular block Bifascicular block Abnormal ECG When compared with ECG of 03-NOV-2023 18:06, [place] interval has increased Referred By: Vandana Pozo Electronically Signed By:FABIÁN GALLARDO MD
[2024-01-17] MEDS: Albuterol Sulfate 5 MG, Albuterol/Iprat 2.5/0.5MG 3 ML 3 ML INHALE (16:32)
[2024-01-17] MEDS: Ibuprofen 600 MG TABLET PO (16:37)
[2024-01-17] MEDS: cefEPime HCl 2 GM in 0.9 % Sodium Chloride 50 ML IV (16:40)
[2024-01-17 16:58] LABS: Venous Blood Gas Refer to POC result
[2024-01-17 16:59] LABS: VBG Base Excess 0.8 mmol/L; VBG HCO3 23 mmol/L (22-26); VBG pCO2 32 mmHg; VBG pH 7.47 (7.32-7.43); VBG pO2 92 mmHg
[2024-01-17] MEDS: Azithromycin 500 MG in 0.9 % Sodium Chloride 250 ML 125 MG IV (17:30)
[2024-01-17] MEDS: methylPREDNISolone Sod Succ 125 MG/2 ML VIAL IVPUSH (18:05)
[2024-01-17] MEDS: Magnesium Sulfate/H2O 2 GM/50 ML PIGGYBACK IV (18:08)
--- NOTE | 2024-01-17 18:52 | PHA.MEDREC ---
Pharmacy Consult ? Medication Reconciliation Pharmacy has completed the medication reconciliation. Spoke to to confirm meds.
--- NOTE | 2024-01-17 20:37 | PM.IMHP ---
History of Present Illness Date of Service: 01/17/24 Attending physician on admission: Jean Garner Chief Complaint: SOB Pt is a 58-year-old primarily Guyanese speaking male with a PMH significant for?COPD not on home O2, hx of Pseudomonas pneumonia with recurrent right-sided pleural effusions requiring multiple throacenteses, hypogammaglobulinemia, former smoker with 40+ pack year history followed by Dr. Long, and hx of alcohol use disorder who presents to the ED with?increased SOB, productive cough, and generalized weakness x3 days. The patient recently 5 day course of levofloxacin prescribed by Dr. Rizo in pulmonology, finished 5-6 days ago. Patient initially felt well for 2 days, then began to experience increased SOB and productive cough. Patient now reports he can not walk across the parking lot without having to stop to catch his breath. Reports subjective fevers at home, and right-sided pleuritic inspiratory chest pain. No nausea, vomiting, abdominal pain. Of note, patient has had recurrent right-sided pleural effusions during the past year and a half which have required multiple thoracenteses with last performed here on 10/20/2023. Pleural effusions has so far been transudative with negative cultures. Unclear etiology: Cardiac workup apparetnly negative for CHF. Patient apparently stopped drinking 3 years ago and quit smoking 2 years ago. In the ED pt was febrile up to 102.7, tachycardic up to 116, tachypneic up to 26, and desatting as low as 90% on RA. Labs were significant for leukocytosis of 13.3, otherwise grossly unremarkable. Stable H& H. No significant electrolyte abnormalities. Renal function WNL. Lactic acid WNL at 1.5. Hepatic function baseline. BNP WNL at 11. Respiratory panel pending. CXR showed increased bronchovascular markings and small bilateral pleural effusions, suggestive of of airway disease or mild fluid overload. EKG demonstrated sinus tachycardia of 117 with RBBB and left anterior fascicular block. Pt was treated with acetaminophen, ibuprofen, Mag sulfate, Solu-Medrol, azithromycin, cefepime, and DuoNebs. Pt will be admitted to the hospital for treatment and further evaluation of acute respiratory failure in the setting of COPD exacerbation with underlying pneumonia with sepsis. Review of Systems Review of Systems: Increased SOB, PRUITT Productive cough Generalized weakness Subjective fever at home No lower leg edema Denies nausea, vomiting, abdominal pain [facility] Medical History PRUITT (dyspnea on exertion) COPD (chronic obstructive pulmonary disease) IgG deficiency PICC (peripherally inserted central catheter) in place Fatigue Splenomegaly ETOH abuse Anemia with low platelet count Pulmonary nodules Family History Father Stroke Mother Cancer Surgical History Status post left rotator cuff repair (07/15/23) History of thoracentesis Hx of repair of right rotator cuff (10/25/20) History of colonoscopy History of liver biopsy Social History Household Members: Spouse Housing: House Do you presently have visiting nurse or other home services: No Alcohol intake: never Patient Tobacco Use Status: Former Tobacco user Cigarettes Per Day: 10 Years Smoked: 35 yrs Smoked in Last 30 Days: No Use of substances other than those prescribed or required for medical reasons: No Advance Directives: Yes Advance Directives on File: Yes Advance Directives Date on File: 09/07/23 service: No Current occupational status: employed 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 Allergies Allergy/AdvReac Type Severity Reaction Status Date / Time No Known Allergies Allergy Verified 01/17/24 13:19 Home Medications ?Medication ?Instructions ?Recorded ?Confirmed ?Last Taken ?Type omalizumab 150 mg/mL subcutaneous 150 mg subcut QMONTH 11/03/23 01/17/24 01/16/24 History syringe (Xolair) albuterol sulfate 2.5 mg/3 mL 2.5 mg inhalation Q6H PRN 01/17/24 01/17/24 Unknown History (0.083 %) solution for nebulization shortness of breath or wheezing Physical Exam Vital Signs and Narrative: Vital Signs: Last Vital Signs Temp 99.1 F 01/17/24 18:00 Pulse 115 H 01/17/24 18:00 Resp 20 01/17/24 18:00 BP 100/59 L 01/17/24 18:00 Pulse Ox 93 01/17/24 18:00 O2 Del Method Nasal Cannula 01/17/24 18:00 O2 Flow Rate 3 01/17/24 18:00 BMI result Body Mass Index 27.9 Constitutional: Alert, in no acute distress. Mental Status: Oriented to person, place and time. Eyes: Pupils are equal, round, and reactive to light. Ear, Nose, and Throat: Oropharynx clear, mucous membranes moist. Ears and nose without deformities. Trachea midline. Respiratory: Significant wheezing and rhonchi. Able to speak in full sentences. Cardiovascular: S1, S2, regular rhythm, tachy. No murmurs, rubs, or gallops. Gastrointestinal: Abdomen soft, non-tender, non-distended. Normal bowel sounds. Neurologic: Cranial nerves II-XII are grossly intact bilaterally. No focal neurological deficits. Moves all extremities spontaneously. Skin: Warm, dry. Extremities: No edema. Psychiatric: Normal mood and affect. Results Labs 01/17/24 13:26 01/17/24 13:26 Labs: Laboratory Results - last 24 hr 01/17/24 01/17/24 01/17/24 13:26 13:56 16:53 MCV 97.1 MCH 32.0 MCHC 33.0 RDW 14.7 Plt Count 361 D MPV 10.0 Immature Gran % (Auto) 0.8 H Neut % (Auto) 83.9 H Lymph % (Auto) 11.1 L Ocean % (Auto) 3.9 Eos % (Auto) 0.0 Baso % (Auto) 0.3 Lymph # (Auto) 1.5 Ocean # (Auto) 0.5 Eos # (Auto) 0.0 Baso # (Auto) 0.0 Abs Immat Gran (auto) 0.11 H Absolute Neuts (auto) 11.1 H Absolute Nucleated RBC 0.000 Nucleated RBC % (auto) 0.0 PT 12.9 INR 1.1 APTT 30.7 VBG pH 7.47 H VBG pCO2 32 VBG pO2 92 VBG HCO3 23 VBG O2 Saturation 97.0 VBG Base Excess 0.8 Anion Gap 14 Estim Creat Clear Calc 94.3 Estimated GFR > 60 Random Glucose 106 Lactic Acid 1.5 Calcium 9.6 Total Bilirubin 1.3 H AST 19 ALT 13 Alkaline Phosphatase 63 Troponin I High Sens 3.2 B-Natriuretic Peptide 11 Total Protein 6.9 Albumin 3.9 Influenza Type A (PCR) NEGATIVE Influenza Type B (PCR) NEGATIVE RSV RNA Qual (PCR) NEGATIVE SARS-CoV-2 RNA (RT-PCR) NEGATIVE Imaging Radiologist's Impressions: Impressions Chest X-Ray 01/17/24 14:19 IMPRESSION: Increased bronchovascular markings and small bilateral pleural effusions. Differential would include airways disease and mild fluid overload. Assessment and Plan (1) COPD exacerbation: Status: Acute Plan Pt is a 58-year-old primarily Guyanese speaking male with a PMH significant for?COPD not on home O2, hx of Pseudomonas pneumonia with recurrent right-sided pleural effusions requiring multiple throacenteses, hypogammaglobulinemia, former smoker with 40+ pack year history followed by Dr. Long, and hx of alcohol use disorder who presents to the ED with?increased SOB, productive cough, and generalized weakness x3 days. Pt will be admitted to the hospital for treatment and further evaluation of acute respiratory failure in the setting of COPD exacerbation with underlying pneumonia with sepsis. Acute respiratory failure in setting COPD exacerbation with sepsis Desatting as low as 90% on RA, wheezing and rhonchi upon auscultation despite multiple treatments in the ED Patient meets sepsis criteria: Fever, tachycardia, tachypnea, and leukocytosis; lactic acid WNL at 1.5 Patient started on broad-spectrum antibiotics in the ED Will treat with cefepime and azithromycin, started 01/17/2024 DuoNebs, Solu-Medrol, guaifenesin Continue home inhalers Titrate supplemental oxygen >92, wean as tolerated Pulmonology consult, follows with Dr. Long Follow cultures Recurrent right-sided pleural effusions Has had thoracocentesis three times this year and twice last year, most recently on 10/20/2023 Unclear etiology CXR today shows small bilateral pleural effusions; no indication for thoracocentesis at this time Continue home bumetanide starting tomorrow Full Code Attending:?Dr. Foley DVT Prophylaxis: Lovenox Pt will require a hospitalization of at least two nights for treatment of?acute respiratory failure in the setting of COPD exacerbation with sepsis. Patient will require administration of supplemental O2, IV steroids, IV antibiotics, breathing treatments, and close monitoring of respiratory status. Quality Stroke Does the patient have a stroke diagnosis?: No VTE Prior VTE?: No VTE Risk Level:: Medical - moderate - high VTE Device Contraindication: Treatment Not Indicated VTE Drug Contraindication: N/A - Med Ordered
[2024-01-17] MEDS: Enoxaparin Sodium 40 MG/0.4 ML SYRINGE SUBCUT (22:04)
[2024-01-18] VITALS (11 sets, daily range): BP systolic 110–125; BP diastolic 61–69; PULSE 69–108; RESP 13–20; TEMP 36.3–36.9; O2SAT 91–97
[2024-01-18] MEDS: 0.9 % Sodium Chloride Flush 3 ML SYRINGE IVFLUSH ×3 (00:14→15:58)
[2024-01-18] MEDS: cefEPime HCl 1 GM in 0.9 % Sodium Chloride 50 ML IV ×4 (00:14→23:59)
[2024-01-18 06:51] LABS: Hematocrit 41.3 % (42.0-52.0); Hemoglobin 13.5 g/dl (14.0-18.0); Mean Corpuscular HGB Conc 32.7 g/dl (31.0-36.0); Mean Corpuscular Volume 97.9 fL (80.0-98.0); Mean Platelet Volume 10.7 fL (9.4-12.4); Platelet Count 306 X10*3/uL (160-400); Red Blood Count 4.22 X10*6/uL (4.60-5.80); Red Cell Distribution Width 14.5 % (11.0-16.0); White Blood Count 12.9 X10*3/uL (4.8-10.8)
[2024-01-18 07:09] LABS: Anion Gap 13 (12-20); Blood Urea Nitrogen 16 mg/dL (9-16); Calcium 9.4 mg/dL (8.4-10.2); Carbon Dioxide 26 mmol/L (22-29); Chloride 104 mmol/L (96-108); Creatinine Clr Calc Pharmacy 114.1; Estimated Glomerular Filt Rate > 60; Glucose Random 172 mg/dL (60-115); Potassium 4.3 mmol/L (3.3-5.1); Sodium 139 mmol/L (135-145)
[2024-01-18] MEDS: Albuterol/Iprat 2.5/0.5MG 3 ML AMPUL.NEB INHALE ×4 (08:11→20:02)
[2024-01-18] MEDS: Fluticasone/Umeclidinium/Vilanterol 100/62.5/25 BLST.W.DEV 1 PUFF INHALE (08:20)
[2024-01-18] MEDS: methylPREDNISolone Sod Succ 40 MG/ML VIAL IVPUSH (08:26)
[2024-01-18] MEDS: Bumetanide 1 MG TABLET PO (08:26)
--- NOTE | 2024-01-18 09:06 | MHC.CM.PN ---
CM MET WITH PT AT BEDSIDE, PT LIVES WITH SPOUSE AND IS INDEPENDENT AT BASELINE. + HCP PCP DR. Camilo HARRINGTON DP: HOME , NO SERVICES IS THE GOAL. SP[facility]SE WILL TRANSPORT HOME.. CM WILL CONTINUE TO FOLLOW FOR ANY CHANGE TO DC PLAN/NEEDS.
--- NOTE | 2024-01-18 09:42 | P.CONPL_ITS ---
History of Present Illness History of Present Illness Consult date: 01/18/24 Chief complaint: COPD exacerbation Narrative: This is an inpatient pulmonary consultation.Pt is a 58-year-old primarily [place] Citizen speaking male with a PMH significant for?COPD not on home O2, hx of Pseudomonas pneumonia with recurrent right-sided pleural effusions requiring multiple throacenteses, hypogammaglobulinemia, former smoker with 40+ pack year history followed by Dr. Long, and hx of alcohol use disorder who presents to the ED with?increased SOB, productive cough, and generalized weakness x3 days. The patient recently 5 day course of levofloxacin prescribed finished 5-6 days ago. Patient initially felt well for 2 days, then began to experience increased SOB and productive cough. Patient now reports he can not walk across the parking lot without having to stop to catch his breath. Reports subjective fevers at home, and right-sided pleuritic inspiratory chest pain. No nausea, vomiting, abdominal pain. Of note, patient has had recurrent right-sided pleural effusions during the past year and a half which have required multiple thoracenteses with last performed here on 10/20/2023. Pleural effusions has so far been transudative with negative cultures. Unclear etiology: Cardiac workup apparetnly negative for CHF. Patient apparently stopped drinking 3 years ago and quit smoking 2 years ago. In the ED pt was febrile up to 102.7, tachycardic up to 116, tachypneic up to 26, and desatting as low as 90% on RA. Labs were significant for leukocytosis of 13.3, otherwise grossly unremarkable. Stable H& H. No significant electrolyte abnormalities. Renal function WNL. Lactic acid WNL at 1.5. Hepatic function baseline. BNP WNL at 11. Respiratory panel pending. CXR showed increased bronchovascular markings and small bilateral pleural effusions, suggestive of of airway disease or mild fluid overload. EKG demonstrated sinus tachycardia of 117 with RBBB and left anterior fascicular block. Pt was treated with acetaminophen, ibuprofen, Mag sulfate, Solu-Medrol, azithromycin, cefepime, and DuoNebs. Pt will be admitted to the hospital for treatment and further evaluation of acute respiratory failure in the setting of COPD exacerbation with underlying pneumonia with sepsis. Review of Systems 2 Constitutional: Constitutional: Denies daytime sleepiness, Denies excessive sweating, Denies fatigue, Denies fever(s), Denies lethargy, Denies malaise, Denies night sweats, Denies snoring and Denies weight loss Eyes: Eyes: Denies blurry vision and Denies itchy eyes ENT: Denies nasal congestion, Denies post nasal drip, Denies sinus pain, Denies sinus pressure and Denies other ( Thrush) Cardiovascular: Cardiovascular: Denies chest pain, Denies pedal edema, Denies dyspnea, Reports dyspnea on exertion, Denies orthopnea and Denies paroxysmal nocturnal dyspnea Respiratory: Respiratory: Denies cough, Denies hemoptysis, Denies excessive phlegm production, Denies dyspnea, Reports dyspnea on exertion, Denies snoring and Denies wheezing Gastrointestinal: Gastrointestinal: Denies abdominal pain and Denies heartburn Musculoskeletal: Musculoskeletal: Denies myalgias, Denies arthralgias and Denies joint swelling Integumentary/Breasts: Skin/Breast: Denies rash Neurologic: Denies memory loss and Denies seizure-like activity Psychiatric: Psychiatric: Denies abnormal sleep pattern, Denies anxiety and Denies memory loss Endocrine: Endocrine: Denies excessive sweating, Denies fatigue and Denies heat intolerance Hematologic/Lymphatic: Hematologic/Lymphatic: Denies easy bruising Allergic/Immunologic: Allergic/Immunologic: Denies itchy eyes, Denies seasonal rhinorrhea and Denies wheezing PMFSH Past Medical History Medical History (Updated 01/18/24 @ 09:50 by Yunior Acahrya MD) Bronchiectasis PRUITT (dyspnea on exertion) COPD (chronic obstructive pulmonary disease) IgG deficiency PICC (peripherally inserted central catheter) in place Fatigue Splenomegaly ETOH abuse Anemia with low platelet count Pulmonary nodules Family History Family History Father Stroke Mother Cancer Surgical History Surgical History Status post left rotator cuff repair (07/15/23) History of thoracentesis Hx of repair of right rotator cuff (10/25/20) History of colonoscopy History of liver biopsy Social History Social History Household Members: Spouse Housing: House Do you presently have visiting nurse or other home services: No Alcohol intake: never Patient Tobacco Use Status: Former Tobacco user Cigarettes Per Day: 10 Years Smoked: 35 yrs Smoked in Last 30 Days: No Use of substances other than those prescribed or required for medical reasons: No Currently Displaying Signs/Symptoms of Drug Intoxication Withdrawal: No Have you been hit, kicked, punched, or otherwise hurt by someone within the past year? 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 Allergies Allergy/AdvReac Type Severity Reaction Status Date / Time No Known Allergies Allergy Verified 01/17/24 13:19 Active Medications: Current Medications Acetaminophen (Acetaminophen 325 Mg Tablet) 650 mg PO Q6H PRN PRN Reason: Pain, Mild (Pain Scale 1-3) Albuterol Sulfate (Albuterol Sulfate (0.083%) 2.5 Mg/3 Ml Vial.Neb) 2.5 mg INHALE Q6H PRN PRN Reason: shortness of breath or wheezing Albuterol/Ipratropium (Albuterol/Iprat 2.5/0.5mg 3 Ml Ampul.Neb) 3 ml INHALE RQ4H WHILE AWAKE [facility] Last Admin: 01/18/24 08:11 Dose: 3 ml Albuterol/Ipratropium (Albuterol/Iprat 2.5/0.5mg 3 Ml Ampul.Neb) 3 ml INHALE RQ4H WHILE AWAKE PRN PRN Reason: Shortness of Breath/Wheezing Bumetanide (Bumetanide 1 Mg Tablet) 1 mg PO BID [facility]; Protocol Last Admin: 01/18/24 08:26 Dose: 1 mg Docusate Sodium (Docusate Sodium 100 Mg Capsule) 100 mg PO DAILY PRN PRN Reason: Constipation Enoxaparin Sodium (Enoxaparin Sodium 40 Mg/0.4 Ml Syringe) 40 mg SUBCUT Q24H [facility] Last Admin: 01/17/24 22:04 Dose: 40 mg Fluticasone/Umeclidinium/Vilanterol (Fluticasone/Umeclidinium/Vilanterol 100/62.5/25 Blst.W.Dev) 1 puff INHALE RDAILY [facility] Last Admin: 01/18/24 08:20 Dose: 1 puff Guaifenesin/Dextromethorphan (Guaifenesin Dm 200/20/10 Ml 10 Ml Syrup) 10 ml PO Q6H PRN PRN Reason: Cough Azithromycin 500 mg/ Sodium (Chloride) 250 mls @ 125 mls/hr IV Q24H [facility] Cefepime HCl 1 gm/ Sodium (Chloride) 50 mls @ 100 mls/hr IV Q8H [facility] Last Infusion: 01/18/24 08:57 Dose: Infused Melatonin (Melatonin 3 Mg Tablet) 6 mg PO BEDTIME PRN PRN Reason: Insomnia Methylprednisolone Sodium Succinate (Methylprednisolone Sod Succ 40 Mg/Ml Vial) 40 mg IVPUSH Q12H [facility] Last Admin: 01/18/24 08:26 Dose: 40 mg Ondansetron HCl (Ondansetron Hcl 4 Mg/2 Ml Vial) 4 mg IVPUSH Q8H PRN PRN Reason: Nausea and Vomiting Sodium Chloride (0.9 % Sodium Chloride Flush 3 Ml Syringe) 3 ml IVFLUSH QSHIFT [facility] Last Admin: 01/18/24 08:27 Dose: 3 ml Home Medications ?Medication ?Instructions ?Recorded ?Confirmed ?Last Taken ?Type omalizumab 150 mg/mL subcutaneous 150 mg subcut QMONTH 11/03/23 01/17/24 01/16/24 History syringe (Xolair) albuterol sulfate 2.5 mg/3 mL 2.5 mg inhalation Q6H PRN 01/17/24 01/17/24 Unknown History (0.083 %) solution for nebulization shortness of breath or wheezing Physical Exam 2 Vital Signs: Vital Signs: Last Vital Signs Temp 97.3 F 01/18/24 08:00 Pulse 90 01/18/24 08:14 Resp 18 01/18/24 08:14 BP 116/64 01/18/24 08:00 Pulse Ox 94 01/18/24 08:00 O2 Del Method Nasal Cannula 01/18/24 08:00 O2 Flow Rate 1.0 01/18/24 08:00 BMI result Body Mass Index 27.9 Const: General: no acute distress and alert Nutritional Appearance: not obese Orientation/consciousness: Other orientation findings ( oriented) HEENT: Head: Yes atraumatic Eyes: General: appearance normal, both eyes and all related structures S clerae: sclerae normal EOM: EOMs intact bilaterally Neck: Neck: Yes supple Lymphatic: no lymphadenopathy noted Resp: Effort & Inspection: normal respiratory effort Auscultation: crackles and diminished lung sounds Cardio: Rate: regular rate Rhythm: regular rhythm Heart sounds: no gallops, no murmurs and no rubs Skin: General skin exam: other ( warm) Extrem: General: No clubbing, No cyanosis and No edema Results Laboratory Findings 01/18/24 06:01 01/18/24 06:01 ABG, PT/INR, D-dimer: PT/INR, D-dimer PT 12.9 SEC (11.1-13.3) 01/17/24 13:26 INR 1.1 (0.9-1.1) 01/17/24 13:26 Abnormal lab findings: Abnormal Labs 01/17/24 01/17/24 01/18/24 13:26 16:53 06:01 WBC 13.3 H 12.9 H RBC 4.56 L 4.22 L Hgb 13.5 L Hct 41.3 L Immature Gran % (Auto) 0.8 H Neut % (Auto) 83.9 H Lymph % (Auto) 11.1 L Abs Immat Gran (auto) 0.11 H Absolute Neuts (auto) 11.1 H VBG pH 7.47 H BUN 17 H Random Glucose 172 H Total Bilirubin 1.3 H Assessment and Plan (1) COPD exacerbation: Status: Acute (2) Pneumonia: Qualifiers: Laterality: bilateral Lung location: unspecified part of lung P neumonia type: due to unspecified organism Qualified Code(s): J18.9 - Pneumonia, unspecified organism Status: Acute (3) Pleural effusion: Status: Acute (4) Hypogammaglobulinemia: Status: Acute (5) Bronchiectasis: Qualifiers: Bronchiectasis type: with acute lower respiratory infection Qualified Code(s): J47.0 - Bronchiectasis with acute lower respiratory infection Status: Acute Plan Clinically feeling better, continue IV abx therapy. Failed outpt. Sputum culture continue oxygen consider IVIG, recheck levels CPT with acapella valve Total time managing care of this patient today: 35 minutes. Procedures Date of Service Date of Service: 01/18/24
[2024-01-18 12:22] LABS: Adenovirus PCR Not Detected (Not Detect.); Bordetella parapertussis PCR Not Detected (Not Detect.); Bordetella pertussis PCR Not Detected (Not Detect.); Chlamydia pneumoniae PCR Not Detected (Not Detect.); Coronavirus 229E PCR Not Detected (Not Detect.); Coronavirus HKU1 PCR Not Detected (Not Detect.); Coronavirus NL63 PCR Not Detected (Not Detect.); Coronavirus OC43 PCR Not Detected (Not Detect.); Human metapneumovirus PCR Not Detected (Not Detect.); Influenza A PCR Not Detected (Not Detect.); Influenza B PCR Not Detected (Not Detect.); Mycoplasma pneumoniae PCR Not Detected (Not Detect.); Parainfluenza 1 PCR Not Detected (Not Detect.); Parainfluenza 2 PCR Not Detected (Not Detect.); Parainfluenza 3 PCR Not Detected (Not Detect.); Parainfluenza 4 PCR Not Detected (Not Detect.); RSV PCR Not Detected (Not Detect.); Rhino/Enterovirus PCR Not Detected (Not Detect.)
[2024-01-18 12:50] LABS: SARS-CoV-2 PCR Not Detected (Not Detect.)
[2024-01-18] MEDS: Acetaminophen 325 MG TABLET 650 MG PO (15:10)
--- NOTE | 2024-01-18 15:25 | P.PNIM_ITS ---
Subjective Subjective Date of Service: 01/18/24 Interval History: Acute respiratory failure in setting COPD exacerbation Review of Systems Shortness of breath seems similar with somewhat improvement Short of breath with minimal exertion Denies any chest pain, has dry cough Physical Exam 2 Vital Signs: Vital Signs: Last Vital Signs Temp 98.4 F 01/18/24 15:07 Pulse 102 H 01/18/24 15:24 Resp 16 01/18/24 15:24 BP 116/64 01/18/24 08:00 Pulse Ox 93 01/18/24 11:05 O2 Del Method Room Air 01/18/24 11:05 O2 Flow Rate 1.0 01/18/24 08:00 BMI result Body Mass Index 27.9 Appearance: Alert.? Oriented X3.? . cvs: rrr, [id number] , no murmur res: air netry diminshed ,has b/l exp wheezing abd: no rebound or guarding ,nt, bs present. ext pulses present , no cyanosis . neuro: axo3 , nonfocal. Objective Data Active Medications Acetaminophen (Acetaminophen 325 Mg Tablet) 650 mg PO Q6H PRN PRN Reason: Pain, Mild (Pain Scale 1-3) Last Admin: 01/18/24 15:10 Dose: 650 mg Documented By: MONROE Albuterol Sulfate (Albuterol Sulfate (0.083%) 2.5 Mg/3 Ml Vial.Neb) 2.5 mg INHALE Q6H PRN PRN Reason: shortness of breath or wheezing Albuterol/Ipratropium (Albuterol/Iprat 2.5/0.5mg 3 Ml Ampul.Neb) 3 ml INHALE RQ4H WHILE AWAKE [facility] Last Admin: 01/18/24 15:21 Dose: 3 ml Documented By: CORIE Albuterol/Ipratropium (Albuterol/Iprat 2.5/0.5mg 3 Ml Ampul.Neb) 3 ml INHALE RQ4H WHILE AWAKE PRN PRN Reason: Shortness of Breath/Wheezing Bumetanide (Bumetanide 1 Mg Tablet) 1 mg PO BID [facility]; Protocol Last Admin: 01/18/24 08:26 Dose: 1 mg Documented By: MONROE Docusate Sodium (Docusate Sodium 100 Mg Capsule) 100 mg PO DAILY PRN PRN Reason: Constipation Enoxaparin Sodium (Enoxaparin Sodium 40 Mg/0.4 Ml Syringe) 40 mg SUBCUT Q24H [facility] Last Admin: 01/17/24 22:04 Dose: 40 mg Documented By: MISSY Fluticasone/Umeclidinium/Vilanterol (Fluticasone/Umeclidinium/Vilanterol 100/62.5/25 Blst.W.Dev) 1 puff INHALE RDAILY [facility] Last Admin: 01/18/24 08:20 Dose: 1 puff Documented By: ADAM Guaifenesin/Dextromethorphan (Guaifenesin Dm 200/20/10 Ml 10 Ml Syrup) 10 ml PO Q6H PRN PRN Reason: Cough Azithromycin 500 mg/ Sodium (Chloride) 250 mls @ 125 mls/hr IV Q24H REY Cefepime HCl 1 gm/ Sodium (Chloride) 50 mls @ 100 mls/hr IV Q8H [facility] Last Admin: 01/18/24 15:10 Dose: 100 mls/hr Documented By: MONROE Melatonin (Melatonin 3 Mg Tablet) 6 mg PO BEDTIME PRN PRN Reason: Insomnia Methylprednisolone Sodium Succinate (Methylprednisolone Sod Succ 40 Mg/Ml Vial) 40 mg IVPUSH Q12H [facility] Last Admin: 01/18/24 08:26 Dose: 40 mg Documented By: MONROE Ondansetron HCl (Ondansetron Hcl 4 Mg/2 Ml Vial) 4 mg IVPUSH Q8H PRN PRN Reason: Nausea and Vomiting Sodium Chloride (0.9 % Sodium Chloride Flush 3 Ml Syringe) 3 ml IVFLUSH QSHIFT [facility] Last Admin: 01/18/24 08:27 Dose: 3 ml Documented By: MONROE Labs 01/18/24 06:01 01/18/24 06:01 Labs: Laboratory Results - last 24 hr 01/17/24 01/17/24 01/18/24 16:53 18:19 06:01 MCV 97.9 MCH 32.0 MCHC 32.7 RDW 14.5 Plt Count 306 MPV 10.7 Absolute Nucleated RBC 0.000 Nucleated RBC % (auto) 0.0 VBG pH 7.47 H VBG pCO2 32 VBG pO2 92 VBG HCO3 23 VBG O2 Saturation 97.0 VBG Base Excess 0.8 Anion Gap 13 Estim Creat Clear Calc 114.1 Estimated GFR > 60 Random Glucose 172 H Calcium 9.4 Respiratory Panel Garcia See Note Adenovirus (Rapid PCR) Not Detected B.pert (TEM-PCR) Not Detected B.parapertussis DNA PCR Not Detected C. pneumoniae DNA (PCR) Not Detected Coronavirus OC43 (PCR) Not Detected Coronavirus HKU1 (PCR) Not Detected Coronavirus 229E (PCR) Not Detected Coronavirus NL63 (PCR) Not Detected Human Metapneumovir PCR Not Detected Influenza A (RT-PCR) Not Detected Influenza B (RT-PCR) Not Detected M. pneumoniae (PCR) Not Detected Parainfluenza 1 (PCR) Not Detected Parainfluenza 2 (PCR) Not Detected Parainfluenza 3 (PCR) Not Detected Parainfluenza 4 (PCR) Not Detected RSV (PCR) Not Detected Entero/Rhino (PCR) Not Detected SARS-CoV-2 RNA (RT-PCR) Not Detected Microbiology Microbiology Results: Microbiology 01/18/24 11:56 Gram Stain - Final Sputum - Expectorated Assessment and Plan (1) COPD exacerbation: Status: Acute Plan 58-year-old primarily Nepali speaking male with a PMH significant for?COPD not on home O2, hx of Pseudomonas pneumonia with recurrent right-sided pleural effusions requiring multiple throacenteses, hypogammaglobulinemia, former smoker with 40+ pack year history followed by Dr. Long, and hx of alcohol use disorder who presents to the ED with?increased SOB, productive cough, and generalized weakness x3 days. Pt will be admitted to the hospital for treatment and further evaluation of acute respiratory failure in the setting of COPD exacerbation with underlying pneumonia with sepsis. Acute respiratory failure in setting COPD exacerbation with sepsis sob with minimal improvemnt. sepsis improving Follow cultures testing for IgG,iGA,IgE pending continue cefepime and azithromycin, started 01/17/2024,DuoNebs, Solu-Medrol, guaifenesin.Titrate supplemental oxygen >92, wean as tolerated pulm eval noted -continue above . Recurrent right-sided pleural effusions Has had thoracocentesis three times this year and twice last year, most recently on 10/20/2023 Unclear etiology CXR today shows small bilateral pleural effusions; no indication for thoracocentesis at this time Continue home bumetanide starting tomorrow Full Code DVT Prophylaxis: Lovenox ongoing hospitalization need for treatment of?acute respiratory failure in the setting of COPD exacerbation with sepsis-continue supplemental O2, IV steroids, IV antibiotics, breathing treatments, and close monitoring of respiratory status. Quality Stroke Does the patient have a stroke diagnosis?: No VTE Prior VTE?: No VTE Risk Level:: Medical - moderate - high VTE Device Contraindication: Treatment Not Indicated VTE Drug Contraindication: N/A - Med Ordered
[2024-01-18] MEDS: Azithromycin 500 MG in 0.9 % Sodium Chloride 250 ML 125 MG IV (17:19)
[2024-01-18] MEDS: diphenhydrAMINE HCL 50 MG/ML VIAL 25 MG IVPUSH (17:41)
[2024-01-18] MEDS: Famotidine/PF 20 MG/2 ML VIAL IVPUSH (17:41)
--- NOTE | 2024-01-18 17:56 | PC.NURSE ---
Pt c/o warmth and redness in face, Temp MD Mateo HEBERT Notified 25mg IVP Benadryl given per orders.
[2024-01-18] MEDS: Enoxaparin Sodium 40 MG/0.4 ML SYRINGE SUBCUT (21:00)
[2024-01-19 03:21] VITALS: BP 105/60; PULSE 73; RESP 16; TEMP 36.9; O2SAT 94
[2024-01-19 07:19] VITALS: BP 120/67; PULSE 81; RESP 16; TEMP 36.5; O2SAT 94
[2024-01-19] MEDS: Bumetanide 1 MG TABLET PO (07:44)
[2024-01-19] MEDS: 0.9 % Sodium Chloride Flush 3 ML SYRINGE IVFLUSH (07:44)
[2024-01-19] MEDS: cefEPime HCl 1 GM in 0.9 % Sodium Chloride 50 ML IV (07:45)
[2024-01-19] MEDS: Fluticasone/Umeclidinium/Vilanterol 100/62.5/25 BLST.W.DEV 1 PUFF INHALE (07:47)
[2024-01-19] MEDS: Albuterol/Iprat 2.5/0.5MG 3 ML AMPUL.NEB INHALE ×2 (07:47→11:16)
[2024-01-19 07:49] VITALS: PULSE 77; RESP 18; O2SAT 94
--- NOTE | 2024-01-19 09:00 | P.PNPL_ITS ---
Subjective Subjective Date of Service: 01/19/24 Interval history: The patient was seen on his own. He is feeling better. He will be switched to p.o. antibiotics and was provided with an Aerobika. He was taught how to use it. He is going to work on chest PT. his IVIG was increased as an outpatient. His levels are still low were still pending most recent blood work. Sputum cultures were also sent. Those are still also pending. Objective Data Labs 01/18/24 06:01 01/18/24 06:01 Labs: Laboratory Results - last 24 hr 01/17/24 18:19 Respiratory Panel Garcia See Note Adenovirus (Rapid PCR) Not Detected B.pert (TEM-PCR) Not Detected B.parapertussis DNA PCR Not Detected C. pneumoniae DNA (PCR) Not Detected Coronavirus OC43 (PCR) Not Detected Coronavirus HKU1 (PCR) Not Detected Coronavirus 229E (PCR) Not Detected Coronavirus NL63 (PCR) Not Detected Human Metapneumovir PCR Not Detected Influenza A (RT-PCR) Not Detected Influenza B (RT-PCR) Not Detected M. pneumoniae (PCR) Not Detected Parainfluenza 1 (PCR) Not Detected Parainfluenza 2 (PCR) Not Detected Parainfluenza 3 (PCR) Not Detected Parainfluenza 4 (PCR) Not Detected RSV (PCR) Not Detected Entero/Rhino (PCR) Not Detected SARS-CoV-2 RNA (RT-PCR) Not Detected Microbiology Microbiology Results: Microbiology 01/17/24 14:04 Blood - Venous Blood Culture - Preliminary No growth after 24 hours. 01/17/24 13:56 Blood - Venous Blood Culture - Preliminary No growth after 24 hours. 01/18/24 11:56 Sputum - Expectorated Gram Stain - Final Review of Systems Constitutional: Denies daytime sleepiness, Denies excessive sweating, Denies fatigue, Denies fever(s), Denies lethargy, Denies malaise, Denies night sweats, Denies snoring and Denies weight loss Eyes: Reports no additional eye complaints Denies nasal congestion, Denies post nasal drip, Denies sinus pain, Denies sinus pressure and Denies other ( Thrush) Cardiovascular: Denies chest pain, Denies pedal edema, Denies dyspnea, Reports dyspnea on exertion, Denies orthopnea and Denies paroxysmal nocturnal dyspnea Respiratory: Reports cough, Denies hemoptysis, Denies excessive phlegm production, Denies dyspnea, Reports dyspnea on exertion, Denies snoring and Denies wheezing Gastrointestinal: Denies abdominal pain and Denies heartburn Musculoskeletal: Denies myalgias, Denies arthralgias and Denies joint swelling Skin/Breast: Denies rash Denies memory loss and Denies seizure-like activity Psychiatric: Denies abnormal sleep pattern, Denies anxiety and Denies memory loss Endocrine: Denies excessive sweating, Denies fatigue and Denies heat intolerance Hematologic/Lymphatic: Denies easy bruising Allergic/Immunologic: Denies seasonal rhinorrhea and Denies wheezing Physical Exam 2 Vital Signs: Vital Signs: Last Vital Signs Temp 97.7 F 01/19/24 07:19 Pulse 77 01/19/24 07:49 Resp 18 01/19/24 07:49 BP 120/67 01/19/24 07:19 Pulse Ox 94 01/19/24 07:19 O2 Del Method Room Air 01/19/24 07:19 O2 Flow Rate 3 01/18/24 15:30 BMI result Body Mass Index 27.9 Const: General: no acute distress and alert Nutritional Appearance: not obese Orientation/consciousness: Other orientation findings ( oriented) HEENT: Head: Yes atraumatic Eyes: General: appearance normal, both eyes and all related structures S clerae: sclerae normal EOM: EOMs intact bilaterally Neck: Neck: Yes supple Lymphatic: no lymphadenopathy noted Resp: Effort & Inspection: normal respiratory effort Auscultation: no crackles and diminished lung sounds Cardio: Rate: regular rate Rhythm: regular rhythm Heart sounds: no gallops, no murmurs and no rubs Skin: General skin exam: other ( warm) Extrem: General: No clubbing, No cyanosis and No edema Procedures Date of Service Date of Service: 01/19/24 Assessment and Plan Assessment and plan (1) IgG deficiency: Status: Inactive (2) Pneumonia: Status: Acute (3) COPD (chronic obstructive pulmonary disease): Status: Acute (4) Pleural effusion: Status: Acute (5) Bronchiectasis: Status: Acute Plan start CPT with nebs and aerobika complete 21 days of antibiotics Awaiting sputum culture continue IVIG therapy, checking levels consider bronchoscopy for deep cultures if no better F/U with outpt pulmonary Time Spent With Patient Time: Total time managing care of this patient today ____ minutes. Progress Note: Quality Stroke Does the patient have a stroke diagnosis?: No
[2024-01-19] MEDS: Doxycycline Monohydrate 100 MG CAPSULE PO (10:21)
--- NOTE | 2024-01-19 10:21 | PM.DS ---
DS: Providers Provider Date of Service: 01/19/24 Date of admission: 01/17/24 21:13 Primary care physician: Jonel Forrester MD Consults: 01/17/24 23:55 Consult to Pulmonology Routine Consulting Provider: [facility] Reason for consultation: Recurrent COPD exacerbation, complex pulm hx,pleural effusions unclear etio DS: Diagnosis Discharge Diagnosis (1) IgG deficiency: Status: Inactive (2) Pneumonia: Status: Acute (3) COPD (chronic obstructive pulmonary disease): Status: Acute (4) Pleural effusion: Status: Acute (5) Bronchiectasis: Status: Acute DS: Summary Hospital Course Hospital Course: admission hpi Chief Complaint: SOB Pt is a 58-year-old primarily Italian speaking male with a PMH significant for?COPD not on home O2, hx of Pseudomonas pneumonia with recurrent right-sided pleural effusions requiring multiple throacenteses, hypogammaglobulinemia, former smoker with 40+ pack year history followed by Dr. Long, and hx of alcohol use disorder who presents to the ED with?increased SOB, productive cough, and generalized weakness x3 days. The patient recently 5 day course of levofloxacin prescribed by Dr. Rizo in pulmonology, finished 5-6 days ago. Patient initially felt well for 2 days, then began to experience increased SOB and productive cough. Patient now reports he can not walk across the parking lot without having to stop to catch his breath. Reports subjective fevers at home, and right-sided pleuritic inspiratory chest pain. No nausea, vomiting, abdominal pain. Of note, patient has had recurrent right-sided pleural effusions during the past year and a half which have required multiple thoracenteses with last performed here on 10/20/2023. Pleural effusions has so far been transudative with negative cultures. Unclear etiology: Cardiac workup apparetnly negative for CHF. Patient apparently stopped drinking 3 years ago and quit smoking 2 years ago. In the ED pt was febrile up to 102.7, tachycardic up to 116, tachypneic up to 26, and desatting as low as 90% on RA. Labs were significant for leukocytosis of 13.3, otherwise grossly unremarkable. Stable H& H. No significant electrolyte abnormalities. Renal function WNL. Lactic acid WNL at 1.5. Hepatic function baseline. BNP WNL at 11. Respiratory panel pending. CXR showed increased bronchovascular markings and small bilateral pleural effusions, suggestive of of airway disease or mild fluid overload. EKG demonstrated sinus tachycardia of 117 with RBBB and left anterior fascicular block. Pt was treated with acetaminophen, ibuprofen, Mag sulfate, Solu-Medrol, azithromycin, cefepime, and DuoNebs. Pt will be admitted to the hospital for treatment and further evaluation of acute respiratory failure in the setting of COPD exacerbation with underlying pneumonia with sepsis. hospital course: A patient with a history of hypogammaglobulinemia, leading to recurrent bronchiectasis, presented with shortness of breath. He has a history of Pseudomonas infection. He receives immunoglobulin therapy (IVIG). He was admitted for bronchiectasis exacerbation and treated with intravenous (IV) antibiotics, specifically cefepime. Showing improvement, he will be discharged on a course of oral antibiotics (levaquin and doxycycline) for 21 days. Follow-up with a pulmonology clinic is scheduled. If improvement is not seen, intravenous antibiotics will be reconsidered via a PICC line. Discussed with his pulmonoligist Dr. Long Additionally, he will finish a course of oral steroids (dexamethasone) due to a prior allergic reaction with facial swelling experienced with prednisone Time Attestation Discharge Coordination Time (in mins): 45 Quality: Safe Use of Opioids Does Pt have an Active Cancer Diagnosis on the Problem List?: No Quality: Stroke Does the patient have a stroke diagnosis?: No Physical Exam Vital Signs: Vital Signs: Last Vital Signs Temp 97.7 F 01/19/24 07:19 Pulse 77 01/19/24 07:49 Resp 18 01/19/24 07:49 BP 120/67 01/19/24 07:19 Pulse Ox 94 01/19/24 07:19 O2 Del Method Room Air 01/19/24 07:19 O2 Flow Rate 3 01/18/24 15:30 BMI result Body Mass Index 27.9 General: AO X 3, no acute distress Resp: CTA bilateral CVS: S1,S2,RRR GI: +BS, NT, no distention Skin: No rash Neuro: motor grossly intact Psych: appropriate affect DS: Data Data Completed and Pending Completed studies during hospitalization [Text1]: Procedures Drainage of Right Pleural Cavity with Drainage Device, Percutaneous Approach (09/06/23) Drainage of Right Pleural Cavity, Percutaneous Approach (11/03/23) Labs on day of discharge: Laboratory Results - last 24 hr 01/17/24 18:19 Respiratory Panel Garcia See Note Adenovirus (Rapid PCR) Not Detected B.pert (TEM-PCR) Not Detected B.parapertussis DNA PCR Not Detected C. pneumoniae DNA (PCR) Not Detected Coronavirus OC43 (PCR) Not Detected Coronavirus HKU1 (PCR) Not Detected Coronavirus 229E (PCR) Not Detected Coronavirus NL63 (PCR) Not Detected Human Metapneumovir PCR Not Detected Influenza A (RT-PCR) Not Detected Influenza B (RT-PCR) Not Detected M. pneumoniae (PCR) Not Detected Parainfluenza 1 (PCR) Not Detected Parainfluenza 2 (PCR) Not Detected Parainfluenza 3 (PCR) Not Detected Parainfluenza 4 (PCR) Not Detected RSV (PCR) Not Detected Entero/Rhino (PCR) Not Detected SARS-CoV-2 RNA (RT-PCR) Not Detected Preliminary micro results at discharge 01/17/24 14:04 Blood Culture - Preliminary Blood - Venous No growth after 24 hours. 01/17/24 13:56 Blood Culture - Preliminary Blood - Venous No growth after 24 hours. Discharge Plan Discharge Anticipated Discharge Date/Time: 01/19/24 09:51 Patient Disposition: Home, Self-Care Discharge Diagnosis: Recurrent bronchiectasis Referrals: Jonel Forrester MD [Primary Care Provider] - 1 Week Discharge Medications: New levofloxacin 500 mg Tablet 500 mg PO Q24H Qty: 18 0RF doxycycline monohydrate 100 mg Capsule 100 mg PO Q12H Qty: 36 0RF dexamethasone 2 mg tablet See Rx Instructions .ROUTE .COMPLEX Qty: 9 0RF Rx Instructions: take 2 tabs by mouth daily for 3 days, then 1 tab daily by mouth for 3 days Continued Privigen 10 % solution 40 g IV Q4W 28 Days Qty: 400 12RF Rx Instructions: DUE 01/29/24 bumetanide 1 mg tablet 1 mg PO BID Qty: 180 3RF Trelegy Ellipta 100-62.5-25 mcg Blister With Device 1 inh inhalation RDAILY Qty: 60 0RF Xolair 150 mg/mL syringe 150 mg subcut QMONTH albuterol sulfate 2.5 mg /3 mL (0.083 %) solution for nebulization 2.5 mg inhalation Q6H PRN (Reason: shortness of breath or wheezing) Discharge Orders: Discharge Order (Routine); Ordered 01/19/24 Ordered By: Neftaly Burnham Diet: Advance to usual diet Activity on Discharge: As tolerated Stand Alone Forms: Patient Portal Discharge page Print Language: Italian Care Plan Goals: recovery from bronchiectasis, and prvent rehospitalization Health Concerns: bronchiectasis Plan of Treatment: take Levaquin and doxycycline as recommended and follow up with Dr. Long take dexamethasone as directed and follow up with your Doctor in 1 week Assessment: see above Patient Instructions: COPD (Chronic Obstructive Pulmonary Disease) (DC), Chronic Lung Disease and Infection Prevention (DC)
[2024-01-19] MEDS: levoFLOXacin 500 MG TABLET PO (10:34)
[2024-01-19 11:18] VITALS: PULSE 83; RESP 18; O2SAT 94
--- NOTE | 2024-01-19 12:34 | MHC.CM.PN ---
DP: PT HAS BEEN MEDICALLY CLEARED FOR DC HOME, NO SERVICES. [facility] WILL TRANSPORT HOME.
[2024-01-20 14:23] LABS: Immunoglobulin A 57 mg/dL (47-310)
[2024-01-20 15:24] LABS: Immunoglobulin G Subclass 1 293 mg/dL (382-929); Immunoglobulin G Subclass 2 90 mg/dL (241-700); Immunoglobulin G Subclass 3 56 mg/dL (22-178); Immunoglobulin G Subclass 4 2.6 mg/dL (4-86); Immunoglobulin G Total 433 mg/dL (600-1640)
[2024-01-21 05:34] LABS: Immunoglobulin E 7 kU/L (<OR=114)
== END 2024-01-19 12:57 | disposition home or self-care (01) | DRG 720 ==
LOC: HO.ED 17:34 → HO.EDOVER 21:29 → HO.S3 01-18 01:12
PROVIDERS: Hospitalist; Physician Assistant; Registered Nurse Emergency; Admitting Provider Student in an Organized Health Care Education/Training Program; Emergency Provider Emergency Medicine; PCP Internal Medicine; Visit Provider Internal Medicine
DX: A41.9 Sepsis, unspecified organism (principal); J96.01 Acute respiratory failure with hypoxia; D80.1 Nonfamilial hypogammaglobulinemia; J18.9 Pneumonia, unspecified organism; J47.0 Bronchiectasis with acute lower respiratory infection; J47.1 Bronchiectasis with (acute) exacerbation; J91.8 Pleural effusion in other conditions classified elsewhere; Z20.822 Contact with and (suspected) exposure to COVID-19; Z87.01 Personal history of pneumonia (recurrent); Z79.620 Long term (current) use of immunosuppressive biologic; Z87.891 Personal history of nicotine dependence; Z79.899 Other long term (current) drug therapy
CPT/HCPCS: 0241U; 36415; 71045; 80048; 80053; 82784; 82785; 82803; 83605; 83880; 84484; 85025; 85027; 85610; 85730; 87040; 87070; 87205; 87633; 93005; 94640; 99285; J0456; J0692; J1200; J1650; J2919; J3475

== ENCOUNTER → 2024-01-17 16:07 | Outpatient (BNV) | payer OTHER, SELFPAY | PROVIDERS: Admitting Provider Student in an Organized Health Care Education/Training Program; Emergency Provider Emergency Medicine; PCP Internal Medicine; Visit Provider Internal Medicine Cardiovascular Disease | DX: R94.31 Abnormal electrocardiogram [ECG] [EKG] (principal) | CPT/HCPCS: 93010 ==

== ENCOUNTER → 2024-01-17 21:13 | Outpatient (BNV) | payer OTHER, SELFPAY | PROVIDERS: Admitting Provider Student in an Organized Health Care Education/Training Program; Emergency Provider Emergency Medicine; PCP Internal Medicine; Visit Provider Internal Medicine | DX: J44.1 Chronic obstructive pulmonary disease with (acute) exacerbation (principal) | CPT/HCPCS: 99223; 99232; 99239 ==

== ENCOUNTER → 2024-01-17 21:13 | Outpatient (BNV) | payer OTHER, SELFPAY | PROVIDERS: Admitting Provider Student in an Organized Health Care Education/Training Program; Emergency Provider Emergency Medicine; PCP Internal Medicine; Visit Provider Hospitalist | DX: D80.3 Selective deficiency of immunoglobulin G [IgG] subclasses (principal); J18.9 Pneumonia, unspecified organism; J44.9 Chronic obstructive pulmonary disease, unspecified; J90 Pleural effusion, not elsewhere classified; J47.0 Bronchiectasis with acute lower respiratory infection | CPT/HCPCS: 99223; 99233 ==

== ENCOUNTER 2024-02-02 13:43 | Outpatient (AMB) | payer OTHER, SELFPAY ==
[2024-02-02 13:44] VITALS: BP 104/60; PULSE 92; O2SAT 93; BMI 28.0
--- NOTE | 2024-02-02 13:44 | A.OFFVIS_ITS ---
Vital Signs 02/02/24 13:44 Height 6 ft 2 in Weight 218 lb 4.122 oz BMI 28.0 BP 104/60 Blood Pressure Location Lt brachial Position Sitting Pulse 92 Pulse Source Doppler Pulse Oximetry (%) 93 Oxygen Delivery Method Room Air Intake Visit Reasons: 2 week HDC f/u Allergies prednisone Allergy (Severe, Verified 02/02/24 13:51) Angioedema HPI HPI 2 week HDC f/u: Details: 58-year-old gentleman, active 40+ pack-year smoker, followed for moderate asthma / COPD overlap syndrome, recurrent pulmonary effusions, hypogammaglobulinemia, and recurrent pulmonary infections. Patient has had several recurrences of pleural effusions, that flow tapped and showed to be sterile lymphocytic transudative. His sputum culture grew Pseudomonas several times and he required multiple treatments with p.o. Levaquin and/or IV ertapenem for recurrent pulmonary infections. He was noted to have hypogammaglobulinemia and was started on IVIG, now having received 3 infusions, he was noted to have an abdominal hive like lesion. Of note, patient is also on Xolair from his cane piler for urticaria. In terms of respiratory medications he is on Trelegy and albuterol MDI/nebs. Patient is also taking bumetanide 1 mg daily with improved control of his lower extremity edema and pulmonary edema. He was not able to tolerate metolazone. After the last office visit patient had brief hospitalization for exacerbation of underlying recurrent infection. Patient was treated with inpatient meropenem and a course of Levaquin and dexamethasone with significant improvement. [facility] Medical History (Updated 02/02/24 @ 14:39 by Luis M Long MD) COPD (chronic obstructive pulmonary disease) Bronchiectasis PRUITT (dyspnea on exertion) IgG deficiency PICC (peripherally inserted central catheter) in place Fatigue Splenomegaly ETOH abuse Anemia with low platelet count Pulmonary nodules Surgical History (Updated 01/27/24 @ 00:02 by Daniel Kevin) Status post left rotator cuff repair (07/15/23) History of thoracentesis Hx of repair of right rotator cuff (10/25/20) History of colonoscopy History of liver biopsy Family History Father Stroke Mother Cancer Social History Household Members: Spouse Housing: House Do you presently have visiting nurse or other home services: No Alcohol intake: never Patient Tobacco Use Status: Former Tobacco user Cigarettes Per Day: 10 Years Smoked: 35 yrs Advance Directives Date on File: 09/07/23 service: No Current occupational status: employed 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 Review of Systems Const Denies daytime sleepiness, Denies excessive sweating, Denies fatigue, Denies fever(s), Denies lethargy, Denies malaise, Denies night sweats, Denies snoring and Denies weight loss Eyes Denies blurry vision and Denies itchy eyes ENT Denies nasal congestion, Denies post nasal drip, Denies sinus pain, Denies sinus pressure and Denies other ( Thrush) Card Denies chest pain, Denies pedal edema, Denies dyspnea, Denies orthopnea and Denies paroxysmal nocturnal dyspnea Resp Denies cough, Denies hemoptysis, Denies excessive phlegm production, Denies dyspnea, Denies snoring and Denies wheezing GI Denies abdominal pain and Denies heartburn Musc Denies myalgias, Denies arthralgias and Denies joint swelling Skin/Breast Denies rash Neuro Denies memory loss and Denies seizure-like activity Psych Denies abnormal sleep pattern, Denies anxiety and Denies memory loss Endo Denies excessive sweating, Denies fatigue and Denies heat intolerance Rohit/Lymph Denies easy bruising Aller/Immun Denies itchy eyes, Denies seasonal rhinorrhea and Denies wheezing Physical Exam Vital Signs: Last Vital Signs Pulse 92 02/02/24 13:44 BP 104/60 02/02/24 13:44 Pulse Ox 93 02/02/24 13:44 Oxygen Delivery Method Room Air 02/02/24 13:44 BMI result Body Mass Index 28.0 Const General: no acute distress and alert Nutritional Appearance: not obese Orientation/consciousness: Other orientation findings ( oriented) HEENT Head: Yes atraumatic Eyes General: appearance normal, both eyes and all related structures Sclerae: sclerae normal EOM: EOMs intact bilaterally Neck Neck: Yes supple Lymphatic: no lymphadenopathy noted Resp Effort & Inspection: normal respiratory effort and no use of accessory muscles Auscultation: clear to auscultation bilaterally Cardio Rate: regular rate Rhythm: regular rhythm Heart sounds: no gallops, no murmurs and no rubs Skin General skin exam: other ( warm) Extrem General: No clubbing, No cyanosis and No edema Assessment & Plan Assessment & Plan (1) Hypogammaglobulinemia: Code(s): D80.1 - Nonfamilial hypogammaglobulinemia Category: Medical Plan: With recurrent Pseudomonas pulmonary infections, appears to be improving on IVIG. Continue current IVIG regimen. (2) COPD (chronic obstructive pulmonary disease): Code(s): J44.9 - Chronic obstructive pulmonary disease, unspecified Category: Medical Plan: Baseline controlled on trilogy and albuterol MDI/nebs. Continue current regimen. (3) Orthopnea: Code(s): R06.01 - Orthopnea Category: Medical Plan: At this time controlled on a diuretic regimen of bumetanide 1 mg daily. Continue current regimen. Coding Level of Care Code Est Pt Level 4 (51664) Complex EM visit Add On G2211 Diagnoses Hypogammaglobulinemia D80.1 COPD (chronic obstructive pulmonary disease) J44.9 Orthopnea R06.01
== END 2024-02-02 14:03 | disposition home or self-care (01) ==
PROVIDERS: PCP Internal Medicine; Visit Provider Internal Medicine Pulmonary Disease
DX: D80.1 Nonfamilial hypogammaglobulinemia (principal); J44.9 Chronic obstructive pulmonary disease, unspecified; R06.01 Orthopnea
CPT/HCPCS: 99214; G2211

== ENCOUNTER → 2024-02-02 13:43 | Outpatient (BNVA) | payer OTHER, SELFPAY | PROVIDERS: PCP Internal Medicine; Visit Provider Internal Medicine Pulmonary Disease ==

== ENCOUNTER 2024-02-23 10:15 | Outpatient (REF) | payer OTHER, SELFPAY ==
[2024-02-23 10:30] LABS: MANUAL DIFF FLAG NO
[2024-02-23 11:13] LABS: Basophils Percent Auto 0.3 % (0-2); Eosinophils Percent Auto 0.1 % (0-4); Hematocrit 43.5 % (42.0-52.0); Hemoglobin 13.9 g/dl (14.0-18.0); Imm Gran Abs Auto 0.07 X10*3/uL (0.00-0.03); Imm Gran Pct Auto 0.6 % (0.0-0.4); Lymphocytes Absolute Auto 1.4 X10*3/uL (1.2-4.9); Lymphocytes Percent Auto 12.4 % (20-40); Mean Corpuscular Hemoglobin 31.7 pg (27.0-33.0); Mean Corpuscular Volume 99.1 fL (80.0-98.0); Mean Platelet Volume 10.6 fL (9.4-12.4); Monocytes Absolute Auto 0.7 X10*3/uL (0.1-1.2); Monocytes Percent Auto 5.9 % (2-11); Neutrophils Absolute Auto 9.3 x10*3/uL (2.0-8.3); Neutrophils Percent Auto 80.7 % (45-73); Platelet Count 279 X10*3/uL (160-400); Red Blood Count 4.39 X10*6/uL (4.60-5.80); Red Cell Distribution Width 14.1 % (11.0-16.0); White Blood Count 11.5 X10*3/uL (4.8-10.8)
[2024-02-23 12:17] LABS: Procalcitonin 0.07 ng/mL
[2024-02-25 00:23] LABS: IgA 59 mg/dL (47-310); IgG 1358 mg/dL (600-1640); IgM 401 mg/dL (50-300)
== END 2024-02-23 10:16 | disposition home or self-care (01) ==
LOC: HO.LAB 10:15
PROVIDERS: PCP Internal Medicine; Visit Provider Internal Medicine Pulmonary Disease
DX: J18.9 Pneumonia, unspecified organism (principal)
CPT/HCPCS: 36415; 82784; 84145; 85025

== ENCOUNTER 2024-02-23 11:31 | Outpatient (AMB) | payer OTHER, SELFPAY ==
[2024-02-23 11:32] VITALS: BP 108/64; PULSE 100; O2SAT 93
--- NOTE | 2024-02-23 11:32 | MHC.OFFVIS ---
Vital Signs 02/23/24 11:32 BP 108/64 Blood Pressure Location Lt brachial Position Sitting Pulse 100 Pulse Source Doppler Pulse Oximetry (%) 93 Oxygen Delivery Method Room Air Intake Visit Reasons: sick visit Allergies prednisone Allergy (Severe, Verified 02/23/24 11:37) Angioedema HPI HPI sick visit: Details: 58-year-old gentleman, active 40+ pack-year smoker, followed for moderate asthma / COPD overlap syndrome, recurrent pulmonary effusions, hypogammaglobulinemia, and recurrent pulmonary infections. Patient has had several recurrences of pleural effusions, that flow tapped and showed to be sterile lymphocytic transudative. His sputum culture grew Pseudomonas several times and he required multiple treatments with p.o. Levaquin and/or IV ertapenem for recurrent pulmonary infections. He was noted to have hypogammaglobulinemia and was started on IVIG, now having received 3 infusions, he was noted to have an abdominal hive like lesion. 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 In terms of respiratory medications he is on Trelegy and albuterol MDI/nebs. Patient is also taking bumetanide 1 mg daily with improved control of his lower extremity edema and pulmonary edema. He was not able to tolerate metolazone. After the last office visit patient continued with IVIG with low improvement. Today he is presenting for sick visit complaining of cough productive of greenish/yellowish sputum. [facility] Medical History (Updated 02/02/24 @ 14:39 by Luis M Long MD) COPD (chronic obstructive pulmonary disease) Bronchiectasis PRUITT (dyspnea on exertion) IgG deficiency PICC (peripherally inserted central catheter) in place Fatigue Splenomegaly ETOH abuse Anemia with low platelet count Pulmonary nodules Surgical History (Updated 01/27/24 @ 00:02 by Daniel Kevin) Status post left rotator cuff repair (07/15/23) History of thoracentesis Hx of repair of right rotator cuff (10/25/20) History of colonoscopy History of liver biopsy Family History Father Stroke Mother Cancer Social History Household Members: Spouse Housing: House Do you presently have visiting nurse or other home services: No Alcohol intake: never Patient Tobacco Use Status: Former Tobacco user Cigarettes Per Day: 10 Years Smoked: 35 yrs Advance Directives Date on File: 09/07/23 service: No Current occupational status: employed 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 Review of Systems Const Denies daytime sleepiness, Denies excessive sweating, Denies fatigue, Denies fever(s), Denies lethargy, Denies malaise, Denies night sweats, Denies snoring and Denies weight loss Eyes Denies blurry vision and Denies itchy eyes ENT Denies nasal congestion, Denies post nasal drip, Denies sinus pain, Denies sinus pressure and Denies other ( Thrush) Card Denies chest pain, Denies pedal edema, Denies dyspnea, Denies orthopnea and Denies paroxysmal nocturnal dyspnea Resp Reports cough, Denies hemoptysis, Reports excessive phlegm production, Denies dyspnea, Denies snoring and Denies wheezing GI Denies abdominal pain and Denies heartburn Musc Denies myalgias, Denies arthralgias and Denies joint swelling Skin/Breast Denies rash Neuro Denies memory loss and Denies seizure-like activity Psych Denies abnormal sleep pattern, Denies anxiety and Denies memory loss Endo Denies excessive sweating, Denies fatigue and Denies heat intolerance Rohit/Lymph Denies easy bruising Aller/Immun Denies itchy eyes, Denies seasonal rhinorrhea and Denies wheezing Physical Exam Vital Signs: Last Vital Signs Pulse 100 02/23/24 11:32 BP 108/64 02/23/24 11:32 Pulse Ox 93 02/23/24 11:32 Oxygen Delivery Method Room Air 02/23/24 11:32 Const General: no acute distress and alert Nutritional Appearance: not obese Orientation/consciousness: Other orientation findings ( oriented) HEENT Head: Yes atraumatic Eyes General: appearance normal, both eyes and all related structures Sclerae: sclerae normal EOM: EOMs intact bilaterally Neck Neck: Yes supple Lymphatic: no lymphadenopathy noted Resp Effort & Inspection: normal respiratory effort and no use of accessory muscles Auscultation: clear to auscultation bilaterally Cardio Rate: regular rate Rhythm: regular rhythm Heart sounds: no gallops, no murmurs and no rubs Skin General skin exam: other ( warm) Extrem General: No clubbing, No cyanosis and No edema Assessment & Plan Assessment & Plan (1) COPD (chronic obstructive pulmonary disease): Code(s): J44.9 - Chronic obstructive pulmonary disease, unspecified Category: Medical Plan: Baseline controlled on trilogy and albuterol MDI/nebs. Continue current regimen. (2) Bronchiectasis: Code(s): J47.9 - Bronchiectasis, uncomplicated Category: Medical Qualifiers: Bronchiectasis type: with acute lower respiratory infection Qualified Code(s): J47.0 - Bronchiectasis with acute lower respiratory infection Plan: Now with an exacerbation. Will treat with a course of Levaquin. (3) Hypogammaglobulinemia: Code(s): D80.1 - Nonfamilial hypogammaglobulinemia Category: Medical Plan: Appears to be slowly improving. Continue on IVIG. Medications: Refilled levofloxacin 500 mg PO Q24H 10 tabs 0RF Discontinued doxycycline monohydrate Discontinued Reason: Doctor's Order 100 mg PO Q12H 36 caps 0RF Coding Level of Care Code Est Pt Level 4 (29240) Complex EM visit Add On G2211 Diagnoses COPD (chronic obstructive pulmonary disease) J44.9 Bronchiectasis with acute lower respiratory infection J47.0 Bronchiectasis type: with acute lower respiratory infection Hypogammaglobulinemia D80.1
== END 2024-02-23 12:00 | disposition home or self-care (01) ==
PROVIDERS: PCP Internal Medicine; Visit Provider Internal Medicine Pulmonary Disease
DX: J44.9 Chronic obstructive pulmonary disease, unspecified (principal); J47.0 Bronchiectasis with acute lower respiratory infection; D80.1 Nonfamilial hypogammaglobulinemia
CPT/HCPCS: 99214

== ENCOUNTER 2024-03-16 15:02 | Outpatient (AMB) | payer OTHER, SELFPAY ==
--- NOTE | 2024-03-16 15:42 | A.OFFVIS_ITS ---
Vital Signs 03/16/24 15:48 Height 6 ft 2 in Weight 218 lb BMI 28.0 Intake Visit Reasons: Newprob-B/L hand pain/cramping Intake Note: Talon is a 58 yo left hand dominant male who presents today with his for a new problem visit regarding bilateral hand pain, cramping, and locking on fingers that have subsided since the appointment was booked. No episodes of tingling. Patient wishes to keep appt today in the event his symptoms return. Denies recent injuries or falls. No EMG done. Accompanied by: Spouse Allergies prednisone Allergy (Severe, Verified 03/16/24 15:48) Angioedema HPI HPI Newprob-B/L hand pain/cramping: Details: Talon is a 59 year old right hand dominant man who presents with complaints of bilateral hand pain & cramping. He complains of pain, cramping, and locking of his fingers bilaterally. He says these symptoms were present when he called to make this appointment, but he says they have disappeared in the last few weeks. He says when present he had difficulty with gripping activities, such as holding the steering wheel while driving. He denies any prior treatment options. He says he recently began taking Privigen for his IgG, and it seems his symptoms improved when he began this medication. 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 [facility] Medical History (Updated 03/16/24 @ 15:59 by Jair Lala) COPD (chronic obstructive pulmonary disease) Bronchiectasis PRUITT (dyspnea on exertion) IgG deficiency PICC (peripherally inserted central catheter) in place Fatigue Splenomegaly ETOH abuse Anemia with low platelet count Pulmonary nodules Surgical History (Updated 01/27/24 @ 00:02 by Daniel Kevin) Status post left rotator cuff repair (07/15/23) History of thoracentesis Hx of repair of right rotator cuff (10/25/20) History of colonoscopy History of liver biopsy Family History Father Stroke Mother Cancer Social History Household Members: Spouse Housing: House Do you presently have visiting nurse or other home services: No Alcohol intake: never Patient Tobacco Use Status: Former Tobacco user Cigarettes Per Day: 10 Years Smoked: 35 yrs Advance Directives Date on File: 09/07/23 service: No Current occupational status: employed 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 Review of Systems Const All systems reviewed & are unremarkable except as noted in HPI and below Physical Exam Vital Signs: BMI result Body Mass Index 28.0 Const General: cooperative, healthy appearing and no acute distress Orientation/consciousness: patient oriented x3 HEENT Head: Yes normocephalic and Yes atraumatic Eyes EOM: EOMs intact bilaterally Resp Effort & Inspection: normal respiratory effort and able to speak in complete sentences Cardio Jugular venous distension: no JVD Skin General skin exam: turgor normal Rashes: no rashes Neuro General: patient oriented x3 Extrem Other: Evaluation of Bilateral Upper Extremity: The patient is alert, oriented, and in no acute distress Neuro: Median, Ulnar, Radial nerves motor and sensory intact and sensation is normal to the tips of all digits No thenar or intrinsic wasting Good finger cross and APB muscle belly firing Vascular: Cap refill brisk ROM: He does have some generalized arthritic changes in the IP joints of his fingers, with some mild stiffness.. He can make a fist and extend all his digits No locking or catching Skin: No lacerations or abrasions. General: No Ecchymosis. No Erythema or evidence of infection. Psych Appearance: grossly normal Affect: normal affect Attitude: cooperative Assessment & Plan Assessment & Plan (1) Bilateral hand pain: Code(s): M79.641 - Pain in right hand; M79.642 - Pain in left hand Category: Medical Plan Assessment & Plan: 1. Bilateral hand pain & cramping Etiology unclear, symptoms improved over the last 2-3 months I educated him about this condition He denies any pain, cramping, locking, or numbness today in clinic, and says his symptoms improved since he began taking Privigen for his IgG deficiency No intervention indicated at this time I recommend he work on ROM exercises at home If his symptoms return he can follow up for assessment Otherwise he can follow up prn Scribed for Jackie Bosch MD by Jair Lala, medical doctor md, on 03/16/24 at 4:00 PM, EST. Coding Level of Care Code New Pt Level 3 (93144) Diagnoses Bilateral hand pain M79.641; M79.640
[2024-03-16 15:48] VITALS: BMI 28.0
== END 2024-03-16 16:36 | disposition home or self-care (01) ==
PROVIDERS: PCP Internal Medicine; Visit Provider Orthopaedic Surgery
DX: M79.641 Pain in right hand (principal); M79.642 Pain in left hand
CPT/HCPCS: 99202

== ENCOUNTER → 2024-03-16 15:02 | Outpatient (BNVA) | payer OTHER, SELFPAY | PROVIDERS: PCP Internal Medicine; Visit Provider Orthopaedic Surgery ==

== ENCOUNTER 2024-05-10 15:35 | Outpatient (AMB) | payer OTHER, SELFPAY ==
--- NOTE | 2024-05-10 15:37 | A.OFFVIS_ITS ---
Vital Signs 05/10/24 15:38 Height 6 ft 2 in Weight 219 lb 5.759 oz BMI 28.2 BP 104/62 Blood Pressure Location Rt brachial Position Sitting Pulse 80 Pulse Source Doppler Pulse Oximetry (%) 94 Oxygen Delivery Method Room Air Intake Visit Reasons: copd Allergies prednisone Allergy (Severe, Verified 03/16/24 15:48) Angioedema HPI HPI copd: Details: 58-year-old gentleman, active 40+ pack-year smoker, followed for moderate asthma / COPD overlap syndrome, recurrent pulmonary effusions, hypogammaglobulinemia, and recurrent pulmonary infections. Patient has had several recurrences of pleural effusions, that flow tapped and showed to be sterile lymphocytic transudative. His sputum culture grew Pseudomonas several times and he required multiple treatments with p.o. Levaquin and/or IV ertapenem for recurrent pulmonary infections. He was noted to have hypogammaglobulinemia and was started on IVIG, now having received 3 infusions, he was noted to have an abdominal hive like lesion. 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 In terms of respiratory medications he is on Trelegy and albuterol MDI/nebs. Patient is also taking bumetanide 1 mg daily with improved control of his lower extremity edema and pulmonary edema. He was not able to tolerate metolazone. After the last office visit patient continued with IVIG with significant improvement. He has been doing well until approximately 2 days prior when he started to develop cough productive of greenish/yellowish sputum again. [facility] Medical History (Updated 03/16/24 @ 15:59 by Jair Lala) COPD (chronic obstructive pulmonary disease) Bronchiectasis PRUITT (dyspnea on exertion) IgG deficiency PICC (peripherally inserted central catheter) in place Fatigue Splenomegaly ETOH abuse Anemia with low platelet count Pulmonary nodules Surgical History (Updated 01/27/24 @ 00:02 by Daniel Kevin) Status post left rotator cuff repair (07/15/23) History of thoracentesis Hx of repair of right rotator cuff (10/25/20) History of colonoscopy History of liver biopsy Family History Father Stroke Mother Cancer Social History Household Members: Spouse Housing: House Do you presently have visiting nurse or other home services: No Alcohol intake: never Patient Tobacco Use Status: Former Tobacco user Cigarettes Per Day: 10 Years Smoked: 35 yrs Advance Directives Date on File: 09/07/23 service: No Current occupational status: employed 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 Review of Systems Const Denies daytime sleepiness, Denies excessive sweating, Denies fatigue, Denies fever(s), Denies lethargy, Denies malaise, Denies night sweats, Denies snoring and Denies weight loss Eyes Denies blurry vision and Denies itchy eyes ENT Denies nasal congestion, Denies post nasal drip, Denies sinus pain, Denies sinus pressure and Denies other ( Thrush) Card Denies chest pain, Denies pedal edema, Denies dyspnea, Denies orthopnea and Denies paroxysmal nocturnal dyspnea Resp Reports cough, Denies hemoptysis, Reports excessive phlegm production, Denies dyspnea, Denies snoring and Denies wheezing GI Denies abdominal pain and Denies heartburn Musc Denies myalgias, Denies arthralgias and Denies joint swelling Skin/Breast Denies rash Neuro Denies memory loss and Denies seizure-like activity Psych Denies abnormal sleep pattern, Denies anxiety and Denies memory loss Endo Denies excessive sweating, Denies fatigue and Denies heat intolerance Rohit/Lymph Denies easy bruising Aller/Immun Denies itchy eyes, Denies seasonal rhinorrhea and Denies wheezing Physical Exam Vital Signs: Last Vital Signs Pulse 80 05/10/24 15:38 BP 104/62 05/10/24 15:38 Pulse Ox 94 05/10/24 15:38 Oxygen Delivery Method Room Air 05/10/24 15:38 BMI result Body Mass Index 28.2 Const General: no acute distress and alert Nutritional Appearance: not obese Orientation/consciousness: Other orientation findings ( oriented) HEENT Head: Yes atraumatic Eyes General: appearance normal, both eyes and all related structures Sclerae: sclerae normal EOM: EOMs intact bilaterally Neck Neck: Yes supple Lymphatic: no lymphadenopathy noted Resp Effort & Inspection: normal respiratory effort and no use of accessory muscles Auscultation: clear to auscultation bilaterally Cardio Rate: regular rate Rhythm: regular rhythm Heart sounds: no gallops, no murmurs and no rubs Skin General skin exam: other ( warm) Extrem General: No clubbing, No cyanosis and No edema Assessment & Plan Assessment & Plan (1) COPD (chronic obstructive pulmonary disease): Code(s): J44.9 - Chronic obstructive pulmonary disease, unspecified Category: Medical Plan: Baseline controlled on Trelegy and duo nebs. Continue current regimen. (2) Bronchiectasis: Code(s): J47.9 - Bronchiectasis, uncomplicated Category: Medical Qualifiers: Bronchiectasis type: with acute lower respiratory infection Qualified Code(s): J47.0 - Bronchiectasis with acute lower respiratory infection Plan: With multiple recurrent exacerbation secondary to Pseudomonas. Now with another exacerbation, will treat with a course of Levaquin. (3) PRUITT (dyspnea on exertion): Code(s): R06.09 - Other forms of dyspnea Category: Medical Plan: Multifactorial with contribution from underlying pulmonary and cardiac etiologies, now with reasonable control on current diuretic dose of Bumex 1 mg twice a day. Continue current regimen. (4) Hypogammaglobulinemia: Code(s): D80.1 - Nonfamilial hypogammaglobulinemia Category: Medical Plan: Continue on IVIG. Will obtain pre therapy IgG levels for possible adjustment. (5) Recurrent pleural effusion on right: Code(s): J90 - Pleural effusion, not elsewhere classified Category: Medical Plan: No recent recurrence, continue to monitor clinically. Orders: Orders Immunoglobulin G Subclasses Today D80.1 - Nonfamilial hypogammaglobulinemia Medications: Changed From levofloxacin 500 mg PO Q24H 10 tabs 0RF To levofloxacin 500 mg (0.6667 x 750 mg) PO Q24H 10 tabs 0RF Coding Level of Care Code Est Pt Level 5 (51978) Complex EM visit Add On G2211 Diagnoses COPD (chronic obstructive pulmonary disease) J44.9 Bronchiectasis with acute lower respiratory infection J47.0 Bronchiectasis type: with acute lower respiratory infection PRUITT (dyspnea on exertion) R06.09 Hypogammaglobulinemia D80.1 Recurrent pleural effusion on right J90
[2024-05-10 15:38] VITALS: BP 104/62; PULSE 80; O2SAT 94; BMI 28.2
== END 2024-05-10 16:20 | disposition home or self-care (01) ==
PROVIDERS: PCP Internal Medicine; Visit Provider Internal Medicine Pulmonary Disease
DX: J44.9 Chronic obstructive pulmonary disease, unspecified (principal); D80.1 Nonfamilial hypogammaglobulinemia; J90 Pleural effusion, not elsewhere classified
CPT/HCPCS: 99214

== ENCOUNTER → 2024-05-10 15:35 | Outpatient (BNVA) | payer OTHER, SELFPAY | PROVIDERS: PCP Internal Medicine; Visit Provider Internal Medicine Pulmonary Disease ==

== ENCOUNTER 2024-05-18 07:08 | Outpatient (REF) | payer OTHER, SELFPAY ==
[2024-05-22 16:18] LABS: Immunoglobulin G Subclass 1 325 mg/dL (382-929); Immunoglobulin G Subclass 2 107 mg/dL (241-700); Immunoglobulin G Subclass 3 81 mg/dL (22-178); Immunoglobulin G Subclass 4 3.4 mg/dL (4-86); Immunoglobulin G Total 537 mg/dL (600-1640)
== END 2024-05-18 07:09 | disposition home or self-care (01) ==
LOC: HO.LAB 07:08
PROVIDERS: PCP Internal Medicine; Visit Provider Internal Medicine Pulmonary Disease
DX: D80.1 Nonfamilial hypogammaglobulinemia (principal)
CPT/HCPCS: 36415; 82784

== ENCOUNTER 2024-06-03 13:34 | Outpatient (REF) | payer OTHER, SELFPAY ==
--- NOTE | ~2024-06-03 | US_ITS ---
EXAMINATION: US ABDOMEN LIMITED CLINICAL INFORMATION: Cellulitis, abdominal wall. COMPARISON: Ultrasound abdomen complete 09/23/2023 and 02/06/2023. CT abdomen 03/31/2018. TECHNIQUE: Real-time imaging of the umbilical area as indicated by patient. FINDINGS: No definite mass is seen. There is a periumbilical bulge seen without a gross hernia. Findings are identical to the 03/31/2018 CT scan. No fluid collections are seen. US/US abdomen limited IMPRESSION: No significant abnormality is seen. Electronically signed by: Eric Ayoub MD 06/06/2024 11:26 PM EDT
== END 2024-06-03 13:35 | disposition home or self-care (01) ==
LOC: HO.HMGCX 13:34
PROVIDERS: PCP Internal Medicine; Visit Provider Internal Medicine
DX: L03.311 Cellulitis of abdominal wall (principal)
CPT/HCPCS: 76705

== ENCOUNTER 2024-06-03 14:57 | Outpatient (REF) | payer OTHER, SELFPAY | END 2024-06-03 14:58 | disposition home or self-care (01) | LOC: HO.CHCLNP 14:57 | PROVIDERS: Visit Provider Internal Medicine | DX: L03.311 Cellulitis of abdominal wall (principal) | CPT/HCPCS: 87070; 87205 ==

== ENCOUNTER 2024-08-15 10:23 | Outpatient (AMB) | payer OTHER, SELFPAY ==
--- NOTE | 2024-08-15 10:27 | MHC.OFFVIS ---
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 He has h/o recurrent pulmonary infections, prior sputum cultures grew Pseudomonas, requiring multiple courses with p.o. Levaquin and/or IV ertapenem. Patient also on bumetanide 1 mg BID for lower extremity edema and pulmonary edema. He was trialed on metolazone, however could not tolerate. At baseline, he has been moderately controlled on IVIG and Xolair, he has not used nebulizer or Trelegy in months. He reports he was unable to tolerate DPI. He is under the care of Dr. Long and presents today for an acute visit, accompanied by his . He reports progressively worsening dyspnea on exertion, sinus congestion, chest tightness and productive cough with yellow sputum over the last week. He denies fever or chills. He notes grandson was recently sick with URI. He denies worsening BLE or orthopnea. [facility] Medical History (Updated 03/16/24 @ 15:59 by Jair Lala) COPD (chronic obstructive pulmonary disease) Bronchiectasis PRUITT (dyspnea on exertion) IgG deficiency PICC (peripherally inserted central catheter) in place Fatigue Splenomegaly ETOH abuse Anemia with low platelet count Pulmonary nodules Surgical History (Updated 01/27/24 @ 00:02 by Daniel Kevin) Status post left rotator cuff repair (07/15/23) History of thoracentesis Hx of repair of right rotator cuff (10/25/20) History of colonoscopy History of liver biopsy Family History Father Stroke Mother Cancer Social History Household Members: Spouse Housing: House Do you presently have visiting nurse or other home services: No Alcohol intake: never Patient Tobacco Use Status: Former Tobacco user Cigarettes Per Day: 10 Years Smoked: 35 yrs Advance Directives Date on File: 09/07/23 service: No Current occupational status: employed 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 Review of Systems Const Denies chills, Denies excessive sweating, Denies fever(s), Denies headache(s) and Denies night sweats Eyes Denies dry eyes, Denies irritation and Denies itchy eyes ENT Reports Normal hearing present, Denies headache(s), Reports nasal congestion, Denies post nasal drip and Denies sore throat Card Denies chest pain, Denies chest pain at rest, Denies chest pain with activity, Denies claudication, Denies leg edema, Reports dyspnea on exertion and Denies paroxysmal nocturnal dyspnea Resp Reports change in phlegm color, Denies chest congestion, Reports cough, Denies hemoptysis, Denies excessive phlegm production, Denies pain on inspiration, Denies pain with cough, Reports dyspnea on exertion, Denies stridor and Denies wheezing Musc Denies myalgias Neuro Reports Normal hearing present and Denies headache(s) Endo Denies excessive sweating Rohit/Lymph Denies lymphadenopathy Aller/Immun Denies itchy eyes, Denies seasonal rhinorrhea and Denies wheezing Physical Exam Vital Signs: Last Vital Signs Pulse 78 08/15/24 10:34 BP 106/70 08/15/24 10:34 Pulse Ox 97 08/15/24 10:34 Oxygen Delivery Method Room Air 08/15/24 10:34 BMI result Body Mass Index 28.9 Const General: cooperative, healthy appearing, comfortable, no acute distress, well developed and alert Orientation/consciousness: patient oriented x3 Limitations: no limitations HEENT Head: Yes normal to inspection, Yes normocephalic and Yes atraumatic Ears: hearing grossly normal bilaterally and external ears normal Eyes General: appearance normal, both eyes and all related structures Eyelids: Yes eyelids normal Sclerae: sclerae normal EOM: EOMs intact bilaterally Neck Neck: Yes normal visual inspection and Yes no lymphadenopathy Lymphatic: no lymphadenopathy noted Chest Chest palpation & inspection: normal inspection of the chest Resp Effort & Inspection: normal respiratory effort, able to speak in complete sentences, no audible wheezes, Actively coughing (harsh wet cough) Quality: actively coughing, no stridor, not tachypneic, no tripod positioning and no use of accessory muscles Auscultation: crackles, rhonchi and wheezes Cardio Jugular venous distension: no JVD Rate: regular rate Rhythm: regular rhythm Skin Other: warm, dry General skin exam: no rashes or lesions noted Neuro General: patient oriented x3 Cranial nerves: Yes Normal hearing present Cognition (Neuro): normal cognition Gait exam (Neuro): Normal gait present Extrem Other: trace pedal edema Psych Appearance: grossly normal and well kempt Speech and movement: Normal speech and movement present and Clear speech present Affect: normal affect Attitude: cooperative Thought process: Normal thought process present Thought content: Normal thought content present Insight: Good insight present (Psych) Judgement: Good judgement present (Psych) Assessment & Plan Assessment & Plan (1) COPD (chronic obstructive pulmonary disease): Code(s): J44.9 - Chronic obstructive pulmonary disease, unspecified Category: Medical (2) Bronchiectasis: Code(s): J47.9 - Bronchiectasis, uncomplicated Category: Medical Qualifiers: Bronchiectasis type: with acute lower respiratory infection Qualified Code(s): J47.0 - Bronchiectasis with acute lower respiratory infection (3) PRUITT (dyspnea on exertion): Code(s): R06.09 - Other forms of dyspnea Category: Medical (4) Cough: Code(s): R05.9 - Cough, unspecified Category: Medical Plan Will treat bronchitic symptoms with levaquin given recurrent pseudomonas infections as well as dexamethasone, patient unable to tolerate prednisone. Will also send for CXR given h/o recurrent pleural effusions and inspiratory crackles on exam. Patient aware to call office if symptoms do not improve and seek emergent care if symptoms worsen. Patient did note that he has not been using any respiratory medications for the past few months, unable to tolerate DPI. Discussed importance of using maintenance medications. Will attempt to send in Breztri and refill DuoNeb, as he has been without medication for nebulizer. If unable to obtain Breztri, will call office to trial another soft mist inhaler. All questions were answered and patient is in agreement of plan. Will follow up with Dr. Long for regularly scheduled appointment or sooner if needed. Orders: Orders XR chest 2V Today R05.9 - Cough, unspecified Medications: New csocnxkgsu-olnjgbxk-fonoubtwid 160-9-4.8 mcg/actuation (Breztri Aerosphere) 2 inhalations inhalation BID 1 ea 3RF ipratropium-albuterol 0.5 mg-3 mg(2.5 mg base)/3 mL 3 mL inhalation Q6H PRN 180 mL 0RF wheezing Changed From dexamethasone take 2 tabs by mouth daily for 3 days, then 1 tab daily by mouth for 3 days 9 tabs 0RF To dexamethasone take 3 tabs x 3 days, 2 tabs x 3 days, 1 tab x 3 days 18 tabs 0RF Refilled levofloxacin 750 mg PO DAILY 7 tabs 0RF Coding Level of Care Code Est Pt Level 4 (91265) Complex EM visit Add On G2211 Diagnoses COPD (chronic obstructive pulmonary disease) J44.9 Bronchiectasis with acute lower respiratory infection J47.0 Bronchiectasis type: with acute lower respiratory infection PRUITT (dyspnea on exertion) R06.09 Cough R05.9
[2024-08-15 10:34] VITALS: BP 106/70; PULSE 78; O2SAT 97; BMI 28.9
== END 2024-08-15 11:11 | disposition home or self-care (01) ==
PROVIDERS: PCP Internal Medicine; Visit Provider Nurse Practitioner Family
DX: J44.9 Chronic obstructive pulmonary disease, unspecified (principal); J47.0 Bronchiectasis with acute lower respiratory infection; R06.09 Other forms of dyspnea; R05.9 Cough, unspecified
CPT/HCPCS: 99214

== ENCOUNTER 2024-08-15 10:23 | Outpatient (REF) | payer OTHER, SELFPAY ==
--- NOTE | ~2024-08-15 | XR_ITS ---
EXAMINATION: XR CHEST CLINICAL INFORMATION: R05.9 - Cough, unspecified COMPARISON: Chest 01/17/2024. CT chest 11/04/2023 TECHNIQUE: 2 views of the chest were obtained. FINDINGS: The lungs are expanded with bilateral blunting of CP angle from pleural effusion or bronchovascular markings and interstitial markings well. There is mild bronchiectasis and lingular scarring or atelectasis. Heart size and pulmonary vascularity is normal. No gross bony abnormality seen except for mild spondylosis. XR/XR chest 2V IMPRESSION: Emphysema with bilateral pleural effusions seen. Bronchiectasis and bronchial wall thickening with prominent interstitial markings suggestive of chronic airway disease. Electronically signed by: José Miguel Quintero MD 08/15/2024 02:24 PM NICOLE
== END 2024-08-15 10:24 | disposition home or self-care (01) ==
LOC: HO.XRAY 10:23
PROVIDERS: PCP Internal Medicine; Visit Provider Nurse Practitioner Family
DX: R05.9 Cough, unspecified (principal)
CPT/HCPCS: 71046

== ENCOUNTER → 2024-08-15 11:19 | Outpatient (BNV) | payer OTHER, SELFPAY | PROVIDERS: PCP Internal Medicine; Visit Provider Radiology Diagnostic Radiology | DX: R05.9 Cough, unspecified (principal) | CPT/HCPCS: 71046 ==

== ENCOUNTER 2024-09-07 10:45 | Outpatient (REF) | payer OTHER, SELFPAY ==
--- OUTSIDE RECORDS SUMMARY | 2024-09-07 12:04 | XMS_ITS | Continuity of Care Document ---
Author Organization [facility] al Address [address] [place] [address]- Care Team Providers Care Sales Representative Business Courses Name Role Phone Mitzy PEDROZA, Jonel Primary Care Physician [phone] Encounter [facility] NBR [id number] Date(s): 09/02/24 - 09/02/[address] [address]- Discharge Disposition: A-D/C Home Attending Physician: Danny Wetzel MD Admitting Physician: Danny Wetzel MD Referring Physician: Not on Staff, Referring MD Encounter Type: Disch ES Allergies, Adverse Reactions, Alerts No Known Allergies Immunizations Given and Recorded Vaccine Date Status Refusal Reason tetanus/diphtheria/pertussis, acel(Tdap) 09/02/24 Given tetanus/diphtheria/pertussis, acel(Tdap) 02/22/08 Given pneumococcal 23-valent vaccine 06/05/13 Recorded Medications albuterol-ipratropium 3 mg-0.5 mg/3 ml inhalation solution 3 mL, Neb, 4 times a day, # 30 each, 0 Refills, Maintenance, 10/12/22 9:13:00 PM EST, Solution, [id number], Partial fill upon patient request if the prescription is for a schedule II opioid drug., 3 mL Neb 4 times a day, 188, cm, 10/12/22 20:25:00 EST, Height, 100.4, kg, 10/12/22 20:25:00 EST, Dry Weight Start Date: 10/12/22 Status: Ordered Quantity: 30.0 Unit: each Repeat number: 1 Amoxicillin By Mouth, Maintenance, 02/23/23 10:57:00 AM EDT Start Date: 02/23/23 Status: Ordered Repeat number: 1 bumetanide 1 mg oral tablet TAKE 1 TABLET BY MOUTH TWICE A DAY Start Date: 07/31/24 Status: Ordered Repeat number: 1 cefadroxil 500 mg oral capsule 2 capsule = 1,000 mg, By Mouth, Every 12 hours, for 5 days, # 20 capsule, 0 Refills, Acute 09/07/24 3:55:00 PM EST, 09/02/24 3:55:00 PM EST, Capsule, [id number], Partial fill upon patient request if the prescription is for a schedule II opioid drug., 188, cm, 09/02/24 15:18:00 EST, Height, 102.7, kg, 09/02/24 15:18:00 EST, Dry Weight Start Date: 09/02/24 Stop Date: 09/07/24 Status: Ordered Quantity: 20.0 Unit: capsule Repeat number: 1 levoFLOXacin 750 mg oral tablet TAKE 1 TABLET BY MOUTH EVERY DAY Start Date: 07/31/24 Status: Ordered Repeat number: 1 Mag-SR 2 TABLETS, By Mouth, 2 times a day, 0 Refills, Maintenance, 11/19/22 1:39:00 PM EDT, Partial fill upon patient request if the prescription is for a schedule II opioid drug. Start Date: 11/19/22 Status: Ordered Repeat number: 1 predniSONE 50 mg oral tablet 1 tablet = 50 mg, By Mouth, Daily, # 4 tablet, 0 Refills, Maintenance, 02/23/23 12:14:00 PM EDT, Tablet, [id number], Partial fill upon patient request if the prescription is for a schedule II opioid drug., 189, cm, 02/23/23 11:10:00 EDT, Height, 96.4, kg, 02/23/23 11:10:00 EDT, Dry Weight Start Date: 02/23/23 Status: Ordered Quantity: 4.0 Unit: tablet Repeat number: 1 Privigen 10% intravenous solution 0 Refills, Maintenance, 07/31/24 2:57:00 PM EST, Partial fill upon patient request if the prescription is for a schedule II opioid drug. Start Date: 07/31/24 Status: Ordered Repeat number: 1 ProAir HFA 90 mcg/inh inhalation aerosol with adapter 2, puffs, Inhalation, 4 times a day, PRN, # 8.5 Gm, Refills 0, Tot. Refills 0, Maintenance, 08/02/22 10:31:00 AM EST, Aerosol, Route to Pharmacy Electronically, [id number], [id number], 188, cm, 04/18/22 6:21:00 EDT, Height, 99, kg, 07/31/22 17:17:00 EST, Dry Weight Start Date: 08/02/22 Status: Ordered Quantity: 8.5 Unit: g Repeat number: 1 Probiotic Formula 1 capsule, By Mouth, 2 times a day, ON EMPTY STOMACH, 0 Refills, Maintenance, 11/19/22 1:37:00 PM EDT, Partial fill upon patient request if the prescription is for a schedule II opioid drug. Start Date: 11/19/22 Status: Ordered Repeat number: 1 Super B Complex 1 tablet, By Mouth, Daily, WITH VITAMIN C, 0 Refills, Maintenance, 11/19/22 1:41:00 PM EDT, Partial fill upon patient request if the prescription is for a schedule II opioid drug. Start Date: 11/19/22 Status: Ordered Repeat number: 1 tinidazole 500 mg oral tablet 1 tablet = 500 mg, By Mouth, 2 times a day, EVERY THURSDAY AND THURSDAY, 0 Refills, Maintenance, 11/18/22 1:47:00 PM EDT, Partial fill upon patient request if the prescription is for a schedule II opioiddrug. Start Date: 11/18/22 Stop Date: 11/21/22 Status: Ordered Repeat number: 1 Xolair Prefilled Syringe 150 mg/mL subcutaneous solution 0 Refills, Maintenance, 07/31/24 2:56:00 PM EST, Partial fill upon patient request if the prescription is for a schedule II opioid drug. Start Date: 07/31/24 Status: Ordered Repeat number: 1 Problem List Condition Confirmation Course Effective Dates Status Health [facility] Informant COVID-19 1 Confirmed 11/21/22 Active 1Problem added by Discern Expert Results Radiology Reports * Exam Date Time Procedure Performing Provider Status 09/02/24 3:28 PM Hand Min 3 Views Right Shanelle , Shelly cunha; Auth (Verified) Notes: (Hand Min 3 Views Right) Reason For Exam: Foreign Body RESULT: Hand Min 3 Views Right Hand Min 3 Views Right, 3 views Reason: Foreign Body; Clinical Question(s): Fracture COMPARISON: 02/22/2008. FINDINGS: The fingers are in flexion. Radiopaque foreign body, representing a 7.4 cm nail, lodged in the right thenar eminence. Tip of the nail overlying the proximal portion of the first metacarpal in all projection and is embedded in the base of the first metacarpal, with parallel nearby 2 lucencies representing a nondisplaced fracture. No other foreign bodies are seen. Mild arthritic changes. Specifically, there is mild evidence of generalized joint space narrowing and minimal osteophytes. No evidence of soft tissue emphysema. IMPRESSION: Nail embedded in the first right proximal metacarpal with nondisplaced fracture of the bone. I have personally reviewed the images and I agree with this report. WSN: [id number] Ordering Physician: Danny Wetzel Dictated By: Melissa Osborn DO Dictated Date/Time: 09/02/24 4:36 pm Reviewed By: Oneil Aiken MD, V Signed By: Oneil Aiken MD, V Signed Date/Time: 09/02/24 4:41 pm Transcribed By: COLE Transcribed Date/Time: 09/02/24 4:14 pm Vital Signs Most recent to oldest [Reference Range]: 1 2 Height 188 cm (09/02/24 3:18 PM) Weight 102.7 kg (09/02/24 3:18 PM) Oxygen Saturation [94-100 %] 93 % *L* (09/02/24 4:10 PM) 94 % (09/02/24 3:18 PM) Pulse Rate [55-90 bpm] 101 bpm *H* (09/02/24 4:10 PM) 107 bpm *H* (09/02/24 3:18 PM) Blood Pressure [90-138/55-84 mm Hg] 112/ 83mm Hg (09/02/24 4:10 PM) 130/80mm Hg (09/02/24 3:18 PM) Respiratory Rate [16-30 br/min] 18 br/mi n (09/02/24 4:10 PM) 18 br/min (09/02/24 3:18 PM) Temperature [96.8-100.4 DegF] 99.4 DegF (09/02/24 3:18 PM) Mode of Delivery (Oxygen) Room air (09/02/24 4:10 PM) Room air (09/02/24 3:18 PM) Blood pressure sites Arm, right (09/02/24 4:10 PM) Arm, left (09/02/24 3:18 PM) Temperature Route Temporal (09/02/24 3:18 PM) Dry Weight 102.7 kg (09/02/24 3:18 PM) Weight Obtained Via Standing scale (09/02/24 3:18 PM) Social History Social History Type Response Smoking Status Former smoker, quit more than 30 days ago; Other: QUIT ABOUT 5 MTHS AGO; entered on: 11/19/22 Sex Sex Representation Male (finding) Note * Damari PEDROZA, Danny Jenkins: PERFORM Event Display: Patient Education Leaflets Authored Date: [id number] Puncture Wound ?? [id number] Puncture Wound A puncture wound occurs when a pointed object pushes into the skin. It may go into the tissues below the skin, including fat and muscle. This type of wound is narrow and deep and can be hard to clean. Because of this, puncture wounds are at high risk of becoming infected. X-rays may be done to check the wound for objects stuck under the skin. You may also need a tetanusshot. This is given if you are not up-to-date on this vaccine. You may also get this shot if it's been more than 5 years since your last tetanus shot and the object that caused the wound may lead to tetanus. Home care ??? Your healthcare provider may prescribe an antibiotic. This is to help prevent or treat an infection. Follow all instructions for taking this medicine. Take the medicine every day until it's gone or you are told to stop. You should not have any left over. ??? You can take acetaminophenor ibuprofen for pain, unless you were given a different pain medicine to use.??If your healthcare provider prescribes medicines for pain, follow the instructions for taking them. ??? Your healthcareprovider will likely give you instructions on how to care for the wound. Follow these instructions.??? Keep the wound clean and dry. Don't get the wound wet until you are told it is OK to do so. If the area gets wet, gently pat it dry with a clean cloth. Replace the wet bandage with a dry one. ???If a bandage was applied and it becomes wet or dirty, replace it. Otherwise, leave it in place for the first 24 hours. ??? You may shower as usual once your provider gives you the OK to get the woundwet. But don't soak the wound in water. This means no tub baths or swimming. ??? Even with correct t reatment, a puncture wound may become infected. Check the wound daily for signs of infection listedbelow. ?? Follow-up care Follow up with your healthcare provider as advised.? When to seek medical advice Call your healthcare provider right away if any of these occur: ??? Signs of infection. These include: o Redness or swelling around the wound gets worse o Warmth of the wound increases o Pain gets worse o Red streaking lines away from the wound o Draining pus ??? Fever of 100.4??F (38.??C) or higher, or as directed by your healthcare provider ??? Changes in color of the wound ??? Numbness around the wound ??? Decreased movement around the injured area ?? Last Reviewed Date: 2021 ?? 5987-5223 [employer]. All rights reserved. This information is not intended as a substitute for professional medical care. Always follow your healthcare professional's instructions. ?? * Danny Wetzel MD: PERFORM Event Display: Patient Education Leaflets Authored Date: [id number] Foreign Object??Under the Skin (Removed) ?? [id number] Foreign Object??Under the Skin (Removed) An object??has been removed from under your skin. Although care was taken to remove all of it, there is always a chance that a small piece may have been left behind. Most skin wounds heal without problems. But there can be an increased risk for infection if anything stays under the skin. Sometimes the pieces work their way out on their own, and sometimes they cancause an infection. Very small pieces that stay under the skin usually don???t cause a problem or need further treatment. Home care Wound care ??? Keep the wound clean and dry. ??? If there is??a dressing or bandage, change it when it gets wet or dirty. Otherwise, leave it on for the first 24 hours, then change it once a day or as often as you were instructed. ??? If stitches or yung were used, clean the wound every day: o After takingoff the dressing, wash the area gently with soap and water. o Apply a thin layer of antibiotic ointment to the cut. This will keep the wound clean and make it easier to remove the stitches. If it is oozing a lot, you can put a nonstick dressing over it. Then reapply the bandage or dressing as you were instructed. o You can get it wet, just like when you clean it. This means you can shower as usual for the first 24 hours. But don't soak the area in water (no baths or swimming) until the stitchesor yung are taken??out. ??? If surgical tape or strips were used, keep the area clean and dry. If it becomes wet, blot it dry with a towel.? Medicine ??? You can take??mvxv-ufx-igxhqos medicine??for pain, unless you were given a different pain medicine to use. Talk with your healthcare provider before taking these medicines if you have chronic liver or kidney disease, ever had a stomach ulcer or digestive bleeding, or are taking blood-thinner medicines. ??? If you were given antibiotics, take them until they are used up. It's important to finish them even if the wound looks better to make sure the infection clears. Finishing the antibiotics also helps prevent future infections that are resistant to antibiotics. ?? Follow-up care Follow up your healthcare provider as advised. Keep in mind the following: ??? Watch for any signs of infection, such as increasing pain, redness, swelling, or pus drainage. If this happens, don???t wait for your scheduled visit. See your provider sooner. ??? Stitches or yung are often taken outin 5 to 14 days. This varies depending on what part of your body they are on, and the type of wound. The provider will tell you how long they should be left in. ??? If surgical tape or strips were used, they're often left on for 7 to 10 days. You can remove them after that unless you were told otherwise. If you try to remove them and it's too hard to do, soaking can help. If the edges of the cut pull apart, stop removing the tape. Follow up with your provider. ??? If X-rays were taken, you'll be told of any new findings that may affect your care. ?? When to get medical care Call your healthcare provider right away if any of these occur: ??? Fever of??100.4??F (38??C) or higher, or as advised by your provider ??? Chills ??? Increasing pain in the wound ??? Redness, swelling, or pus coming from the wound ?? Last Reviewed Date: 2021 ?? [id number] [employer]. All rights reserved. This information is not intended as a substitute for professional medical care. Always follow your healthcare professional's instructions. ?? Patient Care team information Care Team Personnel Name: Milan Connell Position: [facility] Outreach Member Role: [employer] Consulting Physician Name: Jonel Forrester MD Position: [facility] Outreach Member Role: PCP Address: [address] [place] [address] Telecom: Name: Juanita Tejada RN Position: [facility] AMB Nurse Member Role: Primary Care Nurse Name: Soledad Lamas RN Position: [facility] SN RN Member Role: Primary Care Nurse Name: Vidal Li RN Position: [facility] RN Member Role: Primary Care Nurse Name: Diana Marinelli RN Position: [facility] RN Member Role: Primary Care Nurse Name: Dimas Joiner DO Position: [facility] Renal MD Member Role: [employer] Consulting Physician Address: [address] [place], [place] [address] [place], [place] [address] Telecom: Name: Vane Casas RN Position: [facility] Outreach Member Role: Primary Care Nurse Care Team Related Persons Name: JEWELS HOOD Name: ALISSA BACA Name: GISEL BACA Insurance Providers Guarantor name: MEAGAN BACA Health Plan Information #: 1 Payer: [facility] [employer] Member Number: [id number] Policy Number: NA Group Number: [id number] Health Plan Information #: 2 Payer: [facility] [employer] Member Number: [id number] Policy Number: NA Group Number: [id number]
--- OUTSIDE RECORDS SUMMARY | 2024-09-07 12:05 | XMS_ITS | Encounter Summary ---
Author Organization [employer] Address [address] [facility] 7t [place] [address] Care Team Providers Care Wildlife Ecology Professor Name Role Phone Jonel Forrester MD Primary Care Provider [phone] Encounter Details Date Type Department Care Team (Late st Contact Info) Description 08/22/2024 Orders Only [facility] CHC MED & PEDS [address] [place], [place] [phone] Jonel Forrester MD [address] [place] [address] Thrombocytopenia ([facility]) (Primary Dx) Social History Tobacco Use Types Packs/Day Years Used Date Smoking Tobacco: Former Cigarettes Passive Smoke Exposure: Past Smokeless Tobacco: Never Depression Answer Date Recorded Patient Health Questionnaire-9 Score 0 08/12/2022 Housing Stability Answer Date Recorded What is your housing situation today? I have tomas piedra 05/24/[address] you li ve. Do you have problems with any of the following? Pests such as bugs, ants, or mice 05/24/2023 Food Insecurity Answer Date Recorded Within the past 12 months, y ou worried that your food would run out before you got money to buy more: Never True 06/11/2023 Within the past 12 months,th e food you bought just didn't last and you didn't have enough money to get more: Never True Transportation Answer Date Recorded In the past 12 months, has l ack of transportation kept you from medical appts, meetings, work or from getting things needed for daily living? No 06/11/2023 Utilities Answer Date Recorded In the past 12 months, has t he electric, gas, oil or water company threatened to shut off services in your home? No 06/11/2023 Depression Answer Date Recorded Patient Health Questionnaire-2 Score 0 08/12/2022 Sex and Gender Information Value Date Recorded Sex Assigned at Male 06/16/2022 10:25 AM EDT Legal Sex Male 10:25 AM EDT Gender Identity Male 06/16/2022 10:25 AM EDT Sexual Orientation Straight 06/16/2022 10 :25 AM EDT documented as of this encounter Plan of Treatment Scheduled Orders Name Type Priority Associated Diagnoses Orde r Schedule BUN (Blood Urea Nitrogen) Lab Routine Thrombocytopenia (CMS/HCC) Expected: 08/22/2024 (Approximate), Expires: 08/22/2025 Creatinine, Serum Lab Routine Thrombocytopenia (CMS/HCC) Expected: 08/22/2024, Expires: 08/22/2025 documented as of this encounter Visit Diagnoses Diagnosis Thrombocytopenia (CMS/HCC)- Primary Unspecified thrombocytopenia documented in this encounter Additional Health Concerns Assessment Noted Time PHQ-9 Depression Total Score: 0 08/12/20 22 2:31 PM EST documented as of this encounter Care Teams Wildlife Ecology Professor Relationship Specialty Start Date End Date Jonel Forrester MD [address] [place] [phone] PCP - General Internal Medicine 01/23/14 documented as of this encounter
--- OUTSIDE RECORDS SUMMARY | 2024-09-07 12:05 | XMS_ITS | Encounter Summary ---
Author Organization [email or web address] Address [address] [facility] 7 [place] [address] Care Team Providers Care Heater Furnace Name Role Phone Jonel Forrester MD Primary Care Provider [phone] Reason for Visit * Reason Onset Date Comments Nurse Triage 08/29/2024 Encounter Details Date Type Department Care Team ([facility] st Contact Info) Description 08/29/2024 Telephone [facility] CHC MED & PEDS [address] [place] [address] Jonel Forrester MD [address] [place] [address] Nurse Triage Social History Tobacco Use Types Packs/Day Years Used Date Smoking Tobacco: Former Cigarettes Passive Smoke Exposure: Past Smokeless Tobacco: Never Depression Answer Date Recorded Patient Health Questionnaire-9 Score 0 08/12/2022 Housing Stability Answer Date Recorded What is your housing situation today? I have tomasdavid piedra 05/24/[address] you [...] AM EDT documented as of this encounter Miscellaneous Notes * Telephone Encounter - Chrissy Beaver RN - 08/31/2024 10:30 AM EST Notified patient and the appointment will be schedule to review CT results when the results become available. They stated understanding and agreed with the plan. * Telephone Encounter - Chrissy Beaver RN - 08/29/2024 3:55 PM EST TC to [facility]-needs to be NPO by 0600. TC to [place] [facility]- no fasting needed prior to labs. TC to patient and his . Notified them that no fasting was needed for lab work. states she is starting to notice patients eyes are getting 'Yellow . She states it is just his eyes, not his skin. She asked that this message be sent to provider as an FYI. RN informed that provider might wasn't to schedule appointment to assess. Routing to provider as FYI, and please advise if you would like appointment scheduled. * Telephone Encounter - Delmy Mensah RN - 08/29/2024 2:43 PM EST Called pt to triage, spoke to with pt. states pt having a CT of abdomen in about 2 weeks and labs before the CT scan. Pt was not told if he needs to fast for the testing and needs to know before the CT/labs. states pt's sclera are mildly yellow looking but no other signs of jaundice noted and no new symptoms. Will task to team nurses to call pt/ back about the labs. understands and agrees with plan. * Telephone Encounter - Cele Alfonos - 08/29/2024 2:15 PM EST Patient calling to report noticed that pt has yellow eyes and is concern . Patient speaks Slovak. Advised triage nurse will call patient back. documented in this encounter Plan of Treatment Not on file documented as of this encounter Visit Diagnoses Not on filedocumented in this encounter Additional Health Concerns Assessment Noted Time PHQ-9 Depression Total Score: 0 08/12/20 22 2:31 PM EST documented as of this encounter Care Teams Heater Furnace Relationship Specialty Start Date End Date Jonel Forrester MD [address] [place] [phone] PCP - General Internal Medicine 01/23/14 documented as of this encounter
--- OUTSIDE RECORDS SUMMARY | 2024-09-07 12:05 | XMS_ITS | Encounter Summary ---
Author Organization [facility] Address [address] [place] [address] Care Team Providers Care Oil Field Equipment Mechanic Name Role Phone Jonel Forrester Primary Care Provider [phone] Encounter Details Date Type Department Care Team ([facility] Contact Info) Description 09/08/2022 Telephone [facility] [address] [place] [phone] Telephone Intake, Staff Social History Tobacco Use Types Packs/Day Years Used Date Smoking Tobacco: Every Day Smokeless Tobacco: Never Comments:: Sex and Gender Information Value Date Recorded Sex Assigned at Not on file Legal Sex Male 7:23 PM EDT Gender Identity Not on file Sexual Orientation Not on file documented as of this encounter Plan of Treatment Not on file documented as of this encounter Visit Diagnoses Not on filedocumented in this encounter Care Teams Oil Field Equipment Mechanic Relationship Specialty Start Date End Date Jonel Forrester [address] [place] [address] PCP - General 03/05/17 documented as of this encounter
--- OUTSIDE RECORDS SUMMARY | 2024-09-07 12:05 | XMS_ITS | Encounter Summary ---
Author Organization [employer] Address [address] [facility] 7t [place] [address] Care Team Providers Care Mosaic Technician Name Role Phone Jonel Forrester MD Primary Care Provider [phone] Encounter Details Date Type Department Care Team (Late st Contact Info) Description 08/26/2024 Refill C CHC MED & PEDS [address] [place], [place] [phone] Jonel Forrester MD [address] [place] [address] Thrombocytopenia ([facility]) Social History Tobacco Use Types Packs/Day Years [...] encounter Miscellaneous Notes * Telephone Encounter - Griseldaneelima Dumasnte - 08/26/2024 1:32 PM EST Tc from pt spouse stating script was sent to the wrong pharmacy. Jaye is requesting script for barium sulfate (Readi-Cat 2) 2 % suspension to be sent to [id number] - [address] documented in this encounter Plan of Treatment Not on file documented as of this encounter Visit Diagnoses Diagnosis Thrombocytopenia (CMS/HCC) Unspecified thrombocytopenia documented in this encounter Additional Health Concerns Assessment Noted Time PHQ-9 Depression Total Score: 0 08/12/20 22 2:31 PM EST documented as of this encounter Care Teams Mosaic Technician Relationship Specialty Start Date End Date Jonel Forrester MD [address] [place] [address] PCP - General Internal Medicine 01/23/14 documented as of this encounter
--- OUTSIDE RECORDS SUMMARY | 2024-09-07 12:05 | XMS_ITS | Clinical Summary ---
Author Organization [employer] Address 75 [facility] 7t [place] [address] Care Team Providers Care Soap Maker Name Role Phone Jonel Forrester MD Primary Care Provider [phone] Allergies No known active allergies Medications ipratropium-a lbuterol (Duo-Neb) 0.5-2.5 mg/3 mL nebulizer solution INHALE 3 ML EVERY 4 TO 6 HOURS NEEDED FOR WHEEZING 022 Active albuterol (2.5 MG/3ML) 0.083% nebulizer solution USE 1 VIAL VIA NEBULIZER EVERY 4 TO 6 HOURS NEEDED FOR SHORTNESS OF BREATH OR WHEEZING 023 Active ibuprofen 800 MG tablet Take 1 tablet by mouth if needed in the morning, at noon, and at bedtime for pain. 023 Active bumetanide (Bumex) 1 MG tablet Take 1 mg by mouth in the morning. 024 Active EPINEPHrine (Epipen) 0.3 MG/0.3ML injection syringe USE DIRECTED FOR ANAPHYLAXIS 023 Active Trelegy Ellipta 100-62.5-25 MCG/ACT aerosol powder Inhale 1 puff by mouth once daily 024 Active Xolair 150 MG/ML injection Inject 2 syringes subcutaneously every 4 weeks 024 Active barium sulfate (Readi-Cat 2) 2 % suspension Take 900 mL by mouth 1 (one) time for 1 dose. 900 mL 025 2024 Discontinued(R eorder (will not trigger notification to Pharmacy)) barium sulfate (Readi-Cat 2) 2 % suspensionInd ications:Thro mbocytopenia (CMS/HCC) Take 900 mL by mouth 1 (one) time for 1 dose. 900 mL 025 2024 Discontinued(R eorder (will not trigger notification to Pharmacy)) barium sulfate (Readi-Cat 2) 2 % suspensionInd ications:Thro mbocytopenia (CMS/HCC) Take 900 mL by mouth 1 (one) time for 1 dose. 900 mL 025 2024 Active Problems Problem Noted Date Diagnosed Date Hypogammaglobulinemia 06/02/2024 Assessment & Plan (07/05/2024 4:58 PM EST): To follow-up with [facility] allergy as scheduled. No acute intervention done today. 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 Encounters Date Type Department Care Team Description 08/29/2024 Telephone [facility] MED & PEDS [address] [place] [address] Jonel Forrester MD Nurse Triage 08/26/2024 Refill [facility] MED & PEDS [address] [place] [address] Jonel Forrester MD Thrombocytopenia (CMS/HCC) 08/25/2024 Telephone [facility] [address] [place] [address] Jonel Forrester MD callback requested 08/22/2024 Orders Only [facility] MED & PEDS [address] [place] [address] Jonel Forrester MD Thrombocytopenia ([facility]/HCC) (Primary Dx) 08/19/2024 Telephone [facility] [address] [place] [address] Jonel Forrester MD Call Back Request 07/29/2024 Orders Only [facility] MED & PEDS [address] [place] [address] Jonel Forrester MD Steatocystoma (Primary Dx) 07/26/2024 Telephone [facility] [address] [place] [address] Jonel Forrester MD Referral 07/26/2024 Telephone [facility] [address] [place] [address] ABDOMEN 07/25/2024 Telephone [facility] MED & PEDS [address] [place] [address] Jonel Forrester MD Referral; CT scan order 07/12/2024 10:30 AM EST Office Visit [facility] MED & PEDS [address] [place] [address] Jonel Forrester MD Porokeratosis (Primary Dx); Steatocystoma; Erythema 07/12/2024 Travel 07/05/2024 3:30 PM EST Office Visit [facility] MED & PEDS [address] [place] [address] Jonel Forrester MD Nail dystrophy (Primary Dx); Hypogammaglobulinemia ([facility]/HCC); Skin pustule 07/05/2024 Travel 06/28/2024 Patient Outreach [facility] MED & PEDS [address] [place] [address] Jonel Forrester MD Pre-visit Planning ([facility] unable to reach [facility]) 06/14/2024 Telephone [facility] MED & PEDS [address] [place] [address] Jonel Forrester MD 06/10/2024 Telephone [facility] MED & PEDS [address] [place] [address] Jonel Forrester MD 06/08/[address] [address] Jonel Forrester MD from Last 3 Months Immunizations Name Administration Dates Next Due Pneumococcal Polysaccharide PPSV23 06/05/2013 Tdap 02/22/2008 Social History Tobacco Use Types Packs/Day Years Used Date Smoking Tobacco: Former Cigarettes Passive Smoke Exposure: Past Smokeless Tobacco: Never Tobacco Cessation:Counseling Given: Not Answered Depression Answer Date Recorded Patient Health Questionnaire-9 Score 0 08/12/2022 Housing Stability Answer Date Recorded What is your housing situation today? I have tomas pidera 05/24/[address] you li [...] Orientation Straight 06/16/2022 10 :25 AM EDT Last Filed Vital Signs Vital Sign Reading Time Taken Comments Blood Pressure 114/74 07/12/2024 11:04 AM EST Pulse 80 07/12/2024 11:04 AM EST Temperature 36.2 ??C (97.1 ??F) 07/12/2024 11:[address] Respiratory Rate 16 07/12/2024 11:04 AM EST Oxygen Saturation 96% 07/12/2024 11:04 AM EST Inhaled Oxygen Concentration - - Weight 103 kg (228 lb) 07/12/2024 11:04 AM EST Height 188 cm (6' 2 ) 07/12/2024 11:04 AM EST Body Mass Index 29.27 07/12/2024 11:04 AM EST Plan of Treatment Health Maintenance Due Date Last Done Comments CT Colonography 1965 FIT DNA/Cologuard 1965 FIT 1965 FOBT 1965 Sigmoidoscopy 1965 COVID-19 Vaccine (#1) 02/24/1969 Alcohol/Substance Use Screening 1976 Hepatitis A Vaccines (1 of 2 - Risk 2-dose series) 02/24/1983 Zoster Vaccines (1 of 2) 02/24/1983 Pneumococcal Vaccine: Pediatrics (0 to 5 Years) and At-Risk Patients (6 to 64 Years) (2 of 2 - PCV) 06/05/2014 06/05/2013 DTaP/Tdap/Td Vaccines (2 - T d or Tdap) 02/21/2018 02/22/2008 Colonoscopy 06/13/2019 06/13/2014 Colorectal Cancer Screening 06/13/2019 Depression Screening 08/12/2023 08/12/2022, 08/12/2022 SDOH Screening 11/25/2023 11/24/2022 Hepatitis B Vaccines (1 of 3 - Risk 3-dose series) 2024 RSV Patients and Patients Aged 60 years or older (1 - Risk 60-74 years 1-dose series) 2024 Influenza Vaccine (#1) 2024 Tobacco Screening 07/12/2025 07/12/2024 Lipid Panel 08/24/2028 08/24/2023, 09/24/2021, 03/26/2021 HIV Screening Completed 01/14/2023 Hepatitis C Screening Completed 01/14/2023 HIB Vaccines Aged Out No longer eligi ble based on patient's age to complete this topic HPV Vaccines Aged Out No longer eligi ble based on patient's age to complete this topic IPV Vaccines Aged Out No longer eligi ble based on patient's age to complete this topic Meningococcal Vaccine Aged Out No aaron jamie eligible based on patient's age to complete this topic RSV under 20 months Aged Out No longe r eligible based on patient's age to complete this topic Rotavirus Vaccines Aged Out No longer eligible based on patient's age to complete this topic Procedures Procedure Name Priority Date/Time Associated Diagnosis Comments XR CHEST 2 VIEWS Routine 08/15/2024 11:1 9 AM EST EPIDERMAL / DERMAL SHAVING Routine 07/12/2024 2:51 PM EST Porokeratosis LIPID PANEL, STANDARD Routine 08/24/2023 10:22 AM EST Splenomegaly HEPATITIS C ANTIBODY Routine 01/14/2023 3:47 PM EDT HIV ANTIBODY/ANTIGEN ([place] DPH) Routine 01/14/2023 3:47 PM EDT HM COLONOSCOPY Routine 06/13/2014 from Last 3 Months or Most Recently Relevant to Health Maintenance Results * XR Chest 2 Views (08/15/2024 11:19 AM EST) Anatomical Region Laterality Modality Chest Radiographic Angelique ging 08/15/2024 11:1 9 AM EST Narrative 08/15/2024 2:27 PM EST ? [facility] ?[address] ?[place] [address] ?XRay Report ? Signed ? Patient: Talon Stanton ?MR#: [id number] ?? [id number] ? : 1965 ?Acct:[id number] ? Age/Sex: 59 / M ?ADM Date: 08/15/24 ? Loc: HO.XRAY ? Attending Dr: Ingrid Wahl STREET SUPERVISOR ? Ordering Physician: Ingrid Wahl NP ?? Date of Service: 08/15/24 ?? Procedure(s): XR chest 2V ?? Accession Number(s): [id number] ? cc: Jonel Forrester MD; Stucenski,Ingrid STREET SUPERVISOR ? EXAMINATION: ?? XR CHEST ? CLINICAL INFORMATION: ?? R05.9 - Cough, unspecified ? COMPARISON: ?? Chest 01/17/2024. CT chest 11/04/2023 ? TECHNIQUE: ?? 2 views of the chest were obtained. ? FINDINGS: ?? The lungs are expanded with bilateral blunting of CP angle from pleural ?? effusion or bronchovascular markings and interstitial markings well. ?? There is mild bronchiectasis and lingular scarring or atelectasis. ?? Heart size and pulmonary vascularity is normal. No gross bony ?? abnormality seen except for mild spondylosis. ? XR/XR chest 2V ?? IMPRESSION: ?? Emphysema with bilateral pleural effusions seen. ? Bronchiectasis and bronchial wall thickening with prominent ?? interstitial markings suggestive of chronic airway disease. ? Electronically signed by: ??José Miguel Quintero MD ??08/15/2024 02:24 PM EST RP ? Dictated By: ?José Miguel Quintero MD ? Signed By: ?<Electronically signed by José Miguel Quintero MD in OV> ?08/15/24 1424 ? DD/ 1119 ? TD/TT: 08/15/24 1125 ? Tone Artist Apprentice: MSM ? Procedure Note Donstefan, Image - 08/15/2024 [place] [address] XRay Report Signed Patient: Talon StantonMR#: [id number] : 1965Acct:[id number] Age/Sex: 59 / MADM Date: 08/15/24 Loc: [facility] Attending Dr: Ingrid Wahl NP Ordering Physician: Ingrid Wahl NP Date of Service: 08/15/24 Procedure(s): XR chest 2V Accession Number(s): [id number] cc: Jonel Forrester MD; Ingrid Walh NP EXAMINATION: XR CHEST CLINICAL INFORMATION: R05.9 - Cough, unspecified COMPARISON: Chest 01/17/2024. CT chest 11/04/2023 TECHNIQUE: 2 views of the chest were obtained. FINDINGS: The lungs are expanded with bilateral blunting of CP angle from pleural effusion or bronchovascular markings and interstitial markings well. There is mild bronchiectasis and lingular scarring or atelectasis. Heart size and pulmonary vascularity is normal. No gross bony abnormality seen except for mild spondylosis. XR/XR chest 2V IMPRESSION: Emphysema with bilateral pleural effusions seen. Bronchiectasis and bronchial wall thickening with prominent interstitial markings suggestive of chronic airway disease. Electronically signed by: José Miguel Quintero MD 08/15/2024 02:24 PM EST RP Dictated By: José Miguel Quintero MD Signed By: <Electronically signed by José Miguel Quintero MD in OV> 08/15/24 1424 DD/ 1119 TD/TT: 08/15/24 1125 Tone Artist Apprentice: GERONIMO us [facility] External Provider IMG XR PROCEDURES Final Result * Shave removal (07/12/2024 2:51 PM EST) Narrative Jonel Forrester MD - 07/12/2024 2:51 PM EST Jonel Forrester MD ? 07/12/2024 ??2:55 PM Shave removal Date/Time: 07/12/2024 2:51 PM Performed by: Jonel Forrester MD Authorized by: Jonel Forrester MD ?? Consent: ??Consent obtained: ??Verbal ??Risks discussed: ??Bleeding, infection, pain and poor cosmetic result ??Alternatives discussed: ??Observation [place] protocol: ??Procedure explained and questions answered to patient or proxy's satisfaction: yes ?Relevant documents present and verified: no ?Test results available: no ?Imaging studies available: no ?Required blood products, implants, devices, and special equipment available: no ?Site/side marked: no ?Immediately prior to procedure, a time out was called: yes ?Patient identity confirmed: ??Verbally with patient Number of Lesions: 1 Comments: The lesion was pared with a scalpel. ??No immediate complication us Jonel Forrester MD DERM PROCEDURE ORDERABLES F inal Result * (ABNORMAL) Lipid Panel, Standard (08/24/2023 10:22 AM EST) Triglycerides 88 <150 mg/dL [facility] Comment:Desirable Triglyceri de: less than 150 mg/dLBorderline High Triglyceride 150-199 mg/dLHigh Triglyceride: 200-499 mg/dLVery High Triglyceride: greater than or equal to 5OO mg/dL Cholesterol 204(H) <200 mg/dL [facility] Comment:Desirable Cholestero l: less than 200 mg/dLBorderline High Cholesterol: 200-239 mg/dLHigh Cholesterol: greater than 239 mg/dL LDL Cholesterol Calculated 137(H) <100 mg/dL [facility] Comment:Desirable LDL: less than 100 mg/dLNear Optimal/Above Optimal LDL: 110- 129 mg/dLBorderline High LDL: 130-159 mg/dLHigh LDL: 160-189 mg/dLVery High LDL: greater than or equal to 190 mg/dL HDL Cholesterol 50 >40 mg/dL [facility] Comment:Desirable HDL: great er than 40 mg/dL Note: This HDL assay may give artificially low results in patients with liver disease. Blood Venous blood specimen / Unknown 08/24/2023 10:22 AM EST 08/24/2023 10:22 AM EST Jonel Forrester MD LAB BLOOD ORDERABLES Final Result Performing Organization Address City/[facility]/ZIP Co de Phone Number [facility] [address] [place] [phone] * Hepatitis C Ab (01/14/2023 3:47 PM EDT) Hepatitis C Antibody Nonreactive Nonreactive [facility] Comment:Antibodies to HCV no t detected; does not exclude early acuteHCV infection. 01/14/2023 3:47 PM EDT 01/14/2023 3:48 PM EDT [facility] External Provider LAB BLO OD ORDERABLES Final Result Performing Organization Address [facility] Co de Phone Number [facility] [address] [place] [phone] * HIV Ab/Ag (KRUNAL LOPEZ) (01/14/2023 3:47 PM EDT) HIV AB/AG Nonreactive Nonreactive [facility] Comment:HIV-1 p24 Ag and/or HIV-1/HIV-2 Ab not detected.A test result that is nonreactive does not exclude thepossibility of exposure to or infection with HIV-1 and/orHIV-2. Nonreactive results in this assay for individualswith prior exposure to HIV-1 and/or HIV-2 may be due toantigen and antibody levels that are below the limit ofdetection of this assay.The Madsen Dock Pumper HIV Ag/Ab Combo assay result andsupplemental assay results should be interpreted inconjunction with the patient's clinical presentation,history and other laboratory results. If the results areinconsistent with clinical evidence, additional testing issuggested to confirm the result. 01/14/2023 3:47 PM EDT 01/14/2023 3:48 PM EDT [facility] External Provider LAB BLO OD ORDERABLES Final Result Performing Organization Address City/State/[facility] Co de Phone Number [facility] [address] [place] [address] [phone] * Colonoscopy (06/13/2014) Colonoscopy Normal Normal Historical Provider HEALTH MAINTENANCE Final Result from Last 3 Months or Most Recently Relevant to Health Maintenance Insurance [facility] , [address] [place] [address] Care Teams Soap Maker Relationship Specialty Start Date End Date Jonel Forrester MD [address] [place] [phone] PCP - General Internal Medicine 01/23/14
--- OUTSIDE RECORDS SUMMARY | 2024-09-07 12:05 | XMS_ITS | Referral Summary ---
Author Organization [facility] Address [address] [place] [address] Care Team Providers Care Pilot Supervisor Name Role Phone Jonel Forrester Primary Care Provider + [phone] Allergies No known active allergies Medications ferrous sulfate (IRON) 325 mg (65 mg iron) tablet Take 325 mg by mouth 2 times a day with meals. Active ipratropium-alb uterol (COMBIVENT RESPIMAT) 20-100 mcg/actuation inhalerIndicati ons:Cough Inhale 1 puff by mouth 4 times a day as needed for wheezing. 4 g 11 06/29/2017 Active nicotine (NICODERM CQ) 14 mg/24 hr patch apply 1 patch to skin daily as directed. 1 07/13/2017 Active albuterol (PROAIR HFA,VENTOLIN HFA) 90 mcg inhaler INHALE 2 PUFFS 4 TIMES A DAY NEEDED FOR WHEEZING 08/02/2022 Active fluticasone propionate (FLONASE) 50 mcg/actuation nasal spray USE 1 SPRAY NASALLY TWICE DAILY 07/28/2022 Active fluticasone propion-salmete roL (ADVAIR DISKUS) 250-50 mcg inhaler Inhale 1 puff by mouth 2 times a day. Rinse mouth with water after use. Do not swallow. 1 each 11 09/16/2022 Active Active Problems Problem Noted Date Diagnosed Date COPD (chronic obstructive pulmonary disease) COPD exacerbation 08/26/2017 Hepatomegaly 01/26/2017 Splenomegaly 01/26/2017 Lymphadenopathy 12/17/2016 Thrush 12/02/2016 Cough 11/26/2016 Thrombocytopenia 11/26/2016 Abnormal PFT Social History Tobacco Use Types Packs/Day Years Used Date Smoking Tobacco: Every Day Smokeless Tobacco: Never Comments:: Sex and Gender Information Value Date Recorded Sex Assigned at Not on file Legal Sex Male 7:23 PM EDT Gender Identity Not on file Sexual Orientation Not on file Last Filed Vital Signs Vital Sign Reading Time Taken Comments Blood Pressure 126/80 09/16/2022 10:50 AM EST Pulse 80 09/16/2022 10:50 AM EST Temperature 37.1 ??C (98.7 ??F) 03/09/2017 8:35 AM ED T Respiratory Rate 20 09/16/2022 10:50 AM EST Oxygen Saturation 96% 09/16/2022 10:50 AM EST Inhaled Oxygen Concentration - - Weight 98.4 kg (217 lb) 09/16/2022 10:50 AM EST Height 188 cm (6' 2 ) 09/16/2017 1:02 PM EST Body Mass Index 27.86 09/16/2017 1:02 PM EST Plan of Treatment Not on file Procedures * Due to [place] [employer] law, this organization might not be sharing negative HIV tests. Procedure Name Priority Date/Time Associated Diagnosis Comments CT CHEST W CONTRAST Routine 06/12/2017 5 :07 PM EDT Cough Lymphadenopathy Hepatomegaly HEPATITIS C ANTIBODY W/REFLEX TO HCV RNA, QUANTITATIVE PCR Routine 01/26/2017 9:57 AM EDT from Last 3 Months or Most Recently Relevant to Health Maintenance Results * Due to [place] [employer] law, this organization might not be sharing negative HIV tests. * CT Chest W Contrast (06/12/2017 5:07 PM EDT) Anatomical Region Laterality Modality Body Computed Tomogra phy 06/15/2017 2:29 PM EDT Impressions 06/15/2017 2:46 PM EDT IMPRESSION: ?? 1. ??There is mild improvement of the right hilar and subcarinal lymphadenopathy. ??Other lymph nodes in the mediastinum without change. 2. ?? Improvement of the patchy nodules of the right upper lobe, but otherwise there is no significant interval change in the tree-in-bud opacities from end bronchial inflammation/bronchiolitis as congested in the prior study. ??No consolidation or pleural effusion is noted. ??There is also no change in the mild bronchiectasis of the lower lobes. ??If etiology of the bronchiolitis/inflammation is not known, consider bronchoscopy for further evaluation. [id number] Narrative 06/15/2017 2:[address] CHEST W CONTRAST CLINICAL INFORMATION: Initial breath. ??Cough, lymphadenopathy from prior chest CT. TECHNIQUE: Contrast enhanced CT was performed following administration of intravenous contrast. Axial, coronal and sagittal MPRs, axial MIP and coronal MinIP reformations were performed. For radiation dose control at least one of the following techniques was used in this procedure (1) Automated exposure control (2) Adjustment of the mA and/or kV according to patient size (3) Use of iterative reconstruction technique. COMPARISON: CT of the abdomen of 03/09/[address] of the chest of 12/02/2016. FINDINGS: LUNGS AND PLEURA: A 3 mm noncalcified pulmonary nodule is seen in the right middle lobe 8/180 and also present in the prior chest CT without change 139. ??Small tree-in-bud opacities are seen in the right middle lobe and right lower lobe that were present in the prior exam and slightly more prominent in the right upper lobe posteriorly compared to prior exam. ??Some of the patchy nodules of the right upper lobe have resolved. ??Minimal tree-in-bud opacities are seen in the left upper lobe anteriorly also present in the prior exam. ??Multiple tree-in-bud opacities of the left lower lobe unchanged. ??No consolidation, pneumothorax or pleural effusion is seen. ??A left upper lobe noncalcified 6 mm nodule is seen medially 8/114 also 6 mm in the prior exam . ??There is mild bronchiectasis of the lower lobes. MEDIASTINUM: There is ectasia of the ascending thoracic aorta measuring 3.6 cm as in the prior exam. ??There has been interval decrease in the size of the right hilar lymph node measuring 1.5 cm compared to 1.7 cm in short axis and a subcarinal lymph node measuring 1.2 cm compared to 1.7 cm in the prior exam. ??Other mediastinal lymph nodes are unchanged. ??No axillary lymphadenopathy is noted. ??There is enough contrast in the central pulmonary arteries to exclude emboli. UPPER ABDOMEN (limited): There is unchanged splenomegaly. ??The adrenal glands are incompletely visualized. ??There is residual hypodensity in the posterior right lobe of the liver that is partially visualized corresponding to the site of the large laceration seen in the study of February. ??No pericapsular collection is seen in the visualized portions of the liver. BONES: ?? No destructive bone lesion is noted. Procedure Note Matt Mccray MD - 06/15/2017 CT CHEST W CONTRAST CLINICAL INFORMATION: Initial breath. Cough, lymphadenopathy from priorchest CT. TECHNIQUE: Contrast enhanced CT was performed following administration of intravenouscontrast. Axial, coronal and sagittal MPRs, axial MIP and coronal MinIPreformations were performed. For radiation dose control at least one of the following techniques wasused in this procedure (1) Automated exposure control (2) Adjustment ofthe mA and/or kV according to patient size (3) Use of iterativereconstruction technique. COMPARISON: CT of the abdomen of 03/09/[address] of the chest of12/02/2016. FINDINGS: LUNGS AND PLEURA: A 3 mm noncalcified pulmonary nodule is seen in the right middle lobe8/180 and also present in the prior chest CT without change 139. Vqrjocrof-ey-gqo opacities are seen in the right middle lobe and right lowerlobe that were present in the prior exam and slightly more prominent inthe right upper lobe posteriorly compared to prior exam. Some of thepatchy nodules of the right upper lobe have resolved. Minimal knun-de-krlizckzhuhh are seen in the left upper lobe anteriorly also present in theprior exam. Multiple tree-in-bud opacities of the left lower lobeunchanged. No consolidation, pneumothorax or pleural effusion is seen. Aleft upper lobe noncalcified 6 mm nodule is seen medially 8/114 also 6 mmin the prior exam . There is mild bronchiectasis of the lowerlobes. MEDIASTINUM: There is ectasia of the ascending thoracic aorta measuring 3.6 cm as inthe prior exam. There has been interval decrease in the size of the righthilar lymph node measuring 1.5 cm compared to 1.7 cm in short axis and asubcarinal lymph node measuring 1.2 cm compared to 1.7 cm in the priorexam. Other mediastinal lymph nodes are unchanged. No axillarylymphadenopathy is noted. There is enough contrast in the centralpulmonary arteries to exclude emboli. UPPER ABDOMEN (limited): There is unchanged splenomegaly. The adrenal glands are incompletelyvisualized. There is residual hypodensity in the posterior right lobe ofthe liver that is partially visualized corresponding to the site of thelarge laceration seen in the study of February. No pericapsular collection isseen in the visualized portions of the liver. BONES: No destructive bone lesion is noted. IMPRESSION: IMPRESSION: 1. There is mild improvement of the right hilar and subcarinallymphadenopathy. Other lymph nodes in the mediastinum without change. 2. Improvement of the patchy nodules of the right upper lobe, butotherwise there is no significant interval change in the evwr-pw-orwoxctslwqc from end bronchial inflammation/bronchiolitis as congested inthe prior study. No consolidation or pleural effusion is noted. There isalso no change in the mild bronchiectasis of the lower lobes. If etiologyof the bronchiolitis/inflammation is not known, consider bronchoscopy forfurther evaluation. [id number] Wan Lee MD IMG CT PROCEDURES Final Result * Hepatitis C Antibody w/Reflex to HCV RNA, Quantitative PCR (01/26/2017 9:57 AM EDT) Hepatitis C Antibody NON-REACTI VE NON-REACT MAXIMINO [facility] Signal To Cut-Off 0.01 <1.00 [facility] 01/26/2017 9:57 AM EDT 01/26/2017 10:39 AM EDT Renee Moore CORPORATE RELATIONS DIRECTOR LAB BLOOD ORDERABLES Final Result JULIA AGUIRRE [address] [facility] 3rd Floor, [place] [address], [place] [phone] from Last 3 Months or Most Recently Relevant to Health Maintenance Insurance HSNO/FREE CARE Advance Directives Documents on File Type Date Recorded Patient Wrapper Sorter Expl [facility] Care Proxy 05/29/2017 10:55 AM Care Teams Pilot Supervisor Relationship Specialty Start Date End Date Jonel Forrester [address] [place] [id number] PCP - General 03/05/17
--- OUTSIDE RECORDS SUMMARY | 2024-09-07 12:05 | XMS_ITS | Encounter Summary ---
Author Organization [employer] Address [address] [facility] 7t [place] [address] Care Team Providers Care Training Lead Name Role Phone Jonel Forrester MD Primary Care Provider [phone] Reason for Visit * Reason Onset Date Comments callback requested 08/25/2024 Encounter Details Date Type Department Care Team ([facility] st Contact Info) Description 08/25/2024 Telephone [facility] MEDICINE [address] [place] [address] Jonel Forrester MD [address] [place] [phone] callback requested Social History Tobacco Use Types Packs/Day Years [...] encounter Miscellaneous Notes * Telephone Encounter - Cele Alfonso - 08/29/2024 2:13 PM EST TC from pt returning call . States has further questions regarding if pt should fast before taking med. * Telephone Encounter - Regi Mcbride RN - 08/26/2024 1:30 PM EST TC to pt to inform rx were sent for upcoming CT scan labs and meds. No answer, message left requesting call back. * Telephone Encounter - Raisa Parra - 08/25/2024 9:56 AM EST Tc from Spouse requesting a callback in regards stating pt has a CT scan for 09/13 and he needs BW prior to CT Scan as well as a prescription that he was advised [address] scan. Please contact Spouse at [phone]. documented in this encounter Plan of Treatment Not on file documented as of this encounter Visit Diagnoses Not on filedocumented in this encounter Additional Health Concerns Assessment Noted Time PHQ-9 Depression Total Score: 0 08/12/20 22 2:31 PM EST documented as of this encounter Care Teams Training Lead Relationship Specialty Start Date End Date Jonel Forrester MD [address] [place] [address] PCP - General Internal Medicine 01/23/14 documented as of this encounter
--- OUTSIDE RECORDS SUMMARY | 2024-09-07 12:05 | XMS_ITS | Clinical Summary ---
Author Organization [facility] Address [address] [place] [address] Care Team Providers Care Manufacturing Teacher Name Role Phone Jonel Forrester Primary Care Provider + [phone] Allergies No known active allergies Medications ferrous [...] 09/16/2017 1:02 PM EST Plan of Treatment Health Maintenance Due Date Last Done Comments Cologuard 1965 Colon Cancer Screening 1965 Colonoscopy 1965 FOBT / Fit Test 1965 HIV Screening 1965 Sigmoidoscopy 1964 DTaP,Tdap,and Td Vaccines (1 - Tdap) 02/24/1986 Zoster Vaccines (1 of 2) 02/24/2014 Pneumococcal Vaccine: Pediatric (0-5 Years) and At-Risk Patients (6-64 Years) (2 of 2 - PCV) 06/05/2014 06/05/2013 CT Lung Cancer Screening (Baseline) 06/12/2018 06/12/2017, 12/02/2016 RSV Vaccine (60+ years old and patients) (1 - Risk 60-74 years 1-dose series) 2024 COVID-19 Vaccine (1 - 2023-2 5 season) 2024 Influenza Vaccine (#1) 2024 Alcohol/Substance Use Screening 08/17/2024 Depression Screening and Follow-Up 08/17/2024 Social Drivers of Health Annual Screening 08/17/2024 Hepatitis C Screening Completed 01/26/2017 CT Lung Cancer Screening (12 months, previous LungRADS 1 or 2) Discontinued 06/12/2017, 12/02/2016 Hepatitis B Vaccines Aged Out No long er eligible based on patient's age to complete this topic Procedures * Due to [place] [employer] law, this organization might not be sharing negative HIV tests. Procedure Name Priority Date/Time Associated Diagnosis Comments CT CHEST W CONTRAST Routine 06/12/2017 5 :07 PM EDT Cough Lymphadenopathy Hepatomegaly HEPATITIS C ANTIBODY W/REFLEX TO HCV RNA, QUANTITATIVE PCR Routine 01/26/2017 9:57 AM EDT from Last 3 Months or Most Recently Relevant to Health Maintenance Results * Due to [place] [employer] law, this organization might not be sharing [...] not known, consider bronchoscopy for further evaluation. [id number] Narrative 06/15/2017 2:[address] CHEST [...] noncalcified 6 mm nodule is seen medially 114 also 6 mm in the prior exam [...] the prior chest CT without change 139. Txhspwgxh-vb-imi opacities are seen in the right middle lobe and right lowerlobe that were present in the prior exam and slightly more prominent inthe right upper lobe posteriorly compared to prior exam. Some of thepatchy nodules of the right upper lobe have resolved. Minimal ukjn-fk-tpncactbezlv are seen in the left upper lobe anteriorly also present in theprior exam. Multiple tree-in-bud opacities of the left lower lobeunchanged. No consolidation, pneumothorax or pleural effusion is seen. Aleft upper lobe noncalcified 6 mm nodule is seen medially 8/114 also 6 mmin the prior exam 92. There is mild bronchiectasis of the lowerlobes. [...] is no significant interval change in the marq-ja-qspijjlrbozx from end bronchial inflammation/bronchiolitis as congested inthe prior study. No consolidation or pleural effusion is noted. There isalso no change in the mild bronchiectasis of the lower lobes. If etiologyof the bronchiolitis/inflammation is not known, consider bronchoscopy forfurther evaluation. [id number] Wan Lee MD IMG CT PROCEDURES Final Result * Hepatitis C Antibody w/Reflex to HCV RNA, Quantitative PCR (01/26/2017 9:57 AM EDT) Hepatitis C Antibody NON-REACTI VE NON-REACT MAXIMINO [facility] Signal To Cut-Off 0.01 <1.00 [facility] 01/26/2017 9:57 AM EDT 01/26/2017 10:39 AM EDT Renee Moore MEDICARE INSURANCE SPECIALIST LAB BLOOD ORDERABLES Final Result [facility] [address] [facility] 3rd [address], [place] [address], from Last 3 Months or Most Recently Relevant to Health Maintenance Insurance [address] [place] [id number] HSNO/FREE CARE [facility] Advance Directives Documents on File Type Date Recorded Patient Automotive Sales Specialist Expl [facility] Health Care Proxy 05/29/2017 10:55 AM Care Teams Manufacturing Teacher Relationship Specialty Start Date End Date Jonel Forrester [address] [place] [address] PCP - General 03/05/17
--- OUTSIDE RECORDS SUMMARY | 2024-09-07 12:06 | XMS_ITS | Encounter Summary ---
Author Organization [employer] Address [address] [facility] 7 [place] [address] Care Team Providers Care Supervisor Concrete Stone Fabricating Name Role Phone Jonel Forrester MD Primary Care Provider [phone] Reason for Visit * Reason Onset Date Comments Referral 09/05/2022 Encounter Details Date Type Department Care Team ([facility] st Contact Info) Description 09/05/2022 Telephone [facility] MED & PEDS [address] [place] [address] Jonel Forrester MD [address] [place] [address] Referral Social History Tobacco Use Types Packs/Day Years Used Date Smoking Tobacco: Former Cigarettes Smokeless Tobacco: Never Depression Answer Date Recorded Patient Health Questionnaire-9 Score 0 08/12/2022 Depression Answer Date Recorded Patient Health Questionnaire-2 Score 0 08/12/2022 Sex and Gender Information Value Date Recorded Sex Assigned at Male 06/16/2022 10:25 AM EDT Legal Sex Male 10:25 AM EDT Gender Identity Male 06/16/2022 10:25 AM EDT Sexual Orientation Straight 06/16/2022 10 :25 AM EDT COVID-19 Exposure Response Date Recorded In the last 10 days, have yo u been in contact with someone who was confirmed or suspected to have Coronavirus/COVID-19? No / Unsure 08/12/2022 2:08 PM EST documented as of this encounter Miscellaneous Notes * Telephone Encounter - Arina [place] - 09/05/2022 12:06 PM EST Outbound call to Jennie Gandara ( spouse ) to advised technical document writer spoke to Cyber Security Instructor and referral will be sent today with urgency noted on referral. No answer. Left VM. Please advise pt is return call. documented in this encounter Plan of Treatment Not on file documented as of this encounter Visit Diagnoses Not on filedocumented in this encounter Additional Health Concerns Assessment Noted Time PHQ-9 Depression Total Score: 0 08/12/20 22 2:31 PM EST documented as of this encounter Care Teams Supervisor [employer] Fab[employer]ating Relationship Specialty Start Date End Date Jonel Forrester MD [address] [place] [address] PCP - General Internal Medicine 01/23/14 documented as of this encounter
--- OUTSIDE RECORDS SUMMARY | 2024-09-07 12:06 | XMS_ITS | Encounter Summary ---
Author Organization [employer] Address [address] [facility] 7t [place] [address] Care Team Providers Care Credit Support Counselor Name Role Phone Jonel Forrester MD Primary Care Provider [phone] Reason for Visit * Reason Onset Date Comments Referral 07/25/2024 CT scan order 07/25/2024 Encounter Details Date Type Department Care Team ([facility] Contact Info) Description 07/25/2024 Telephone [facility] MED & PEDS [address] [place] [address] Jonel Forrester MD [address] [place] [address] Referral; CT scan order Social History Tobacco Use Types Packs/Day Years [...] encounter Miscellaneous Notes * Telephone Encounter - Griselda Foster - 07/25/2024 2:38 PM EST Tc from pt spouse Jaye regarding order for CT scan of the abdomin and sleep study referral. Jaye stated both orders were done incorrectly and pt is unable to schedule appointment. Contact Jaye at [phone] documented in this encounter Plan of Treatment Not on file documented as of this encounter Visit Diagnoses Not on filedocumented in this encounter Additional Health Concerns Assessment Noted Time PHQ-9 Depression Total Score: 0 08/12/20 22 2:31 PM EST documented as of this encounter Care Teams Credit Support Counselor Relationship Specialty Start Date End Date Jonel Forrester MD [address] [place] [id number] PCP - General Internal Medicine 01/23/14 documented as of this encounter
--- OUTSIDE RECORDS SUMMARY | 2024-09-07 12:06 | XMS_ITS | Continuity of Care Document ---
Author Organization [facility] Address [address] [place] [address] [address] [place] [address] Phone Care Team Providers Care Cut Out Operator Name Role Phone Jeb Wallace MD, FACS, RVT Unavailable Unavailable Advance Directives Directive Yes / No Effective Date File Name No Information Encounters Encounter Description Practice Location Reason(s) For Visit Diagnoses Date Provider Providers Copied on Encounter [facility], [address] [place] [address] [address], [place], [id number], tel:[phone] [facility] No Information 3 Santy Bryan. [address] [address], [place], [address], [place]. tel:[phone] Referring Provider: Jonel Molina [place], [address] [place] [address], [address]. tel:[phone] Family History Family Member Type Diagnosis Age At Onset No Information Payers Payer name Insurance type Covered green party ID Authoriza tion(s) No Information Social History Type Description Quantity Date Captured Comments Sex Male Smoking Status No Information Chief Complaint And Reason For Visit No Information Reason For Referral Reason For Referral No Information History Of Present Illness Encounter Date Complaint History Of Prese nt Illness No Information Functional Status Date Functional Assessmen t No Information Instructions Date Instruction Additional Infor mation No Information Assessments Type Assessment Date No Information Patient Care Teams Name Effective Dates (start - stop) Status Members No Information
--- OUTSIDE RECORDS SUMMARY | 2024-09-07 12:06 | XMS_ITS | Encounter Summary ---
Author Organization [employer] Address [address] [facility] 7t [place] [address] Care Team Providers Care School Lunch Monitor Name Role Phone Jonel Forrester MD Primary Care Provider [phone] Reason for Visit * Reason Onset Date Comments Referral 07/26/2024 Encounter Details Date Type Department Care Team ([facility] st Contact Info) Description 07/26/2024 Telephone [facility] MEDICINE [address] [place] [address] Jonel Forrester MD [address] [place] [address] Referral Social History Tobacco Use Types Packs/Day [...] encounter Miscellaneous Notes * Telephone Encounter - Lebron Acharya - 07/29/2024 2:20 PM EST Tc from Spouse calling in regards to message prior, she is getting increasingly frustrated due to having to wait over a month of order to be fixed. Spouse is requesting for order to be sent and a call back to confirm. * Telephone Encounter - Raisa Parra - 07/26/2024 2:46 PM EST Tc from spouse requesting a callback as pt needs new order for sleep apnea test, spouse inform old order was not completed as they recommend her to ask PCP a new order. Callback number [phone] documented in this encounter Plan of Treatment Not on file documented as of this encounter Visit Diagnoses Not on filedocumented in this encounter Additional Health Concerns Assessment Noted Time PHQ-9 Depression Total Score: 0 08/12/20 22 2:31 PM EST documented as of this encounter Care Teams School Lunch Monitor Relationship Specialty Start Date End Date Jonel Forrester MD [address] [place] [address] PCP - General Internal Medicine 01/23/14 documented as of this encounter
--- OUTSIDE RECORDS SUMMARY | 2024-09-07 12:06 | XMS_ITS | Encounter Summary ---
Author Organization [employer] Address [address] [facility] 7t [place] [address] Care Team Providers Care Account Manager Education Name Role Phone Jonel Forrester MD Primary Care Provider [phone] Encounter Details Date Type Department Care Team (Late st Contact Info) Description 08/04/2022 Orders Only [facility] MEDICINE [address] [place], [place] [phone] Jonel Forrester MD [address] [place] [address] Social History Tobacco Use Types Packs/Day Years Used Date Smoking Tobacco: Never Assessed Sex and Gender Information Value Date Recorded [...] suspected to have Coronavirus/COVID-19? No / Unsure 07/28/2022 10:45 AM EST documented as of this encounter Plan of Treatment Not on file documented as of this encounter Visit Diagnoses Not on filedocumented in this encounter Care Teams Account Manager Education Relationship Specialty Start Date End Date Jonel Forrester MD [address] [place] [address] PCP - General Internal Medicine 01/23/14 documented as of this encounter
--- OUTSIDE RECORDS SUMMARY | 2024-09-07 12:06 | XMS_ITS | Encounter Summary ---
Author Organization [employer] Address [address] [facility] 7 [place] [address] Care Team Providers Care Wood Crafter Name Role Phone Jonel Forrester MD Primary Care Provider [phone] Reason for Visit * Reason Onset Date Comments Call Back Request 08/19/2024 Encounter Details Date Type Department Care Team ([facility] st Contact Info) Description 08/19/2024 Telephone [facility] MEDICINE [address] [place] [address] Jonel Forrester MD [address] [place] [address] Call Back Request Social History Tobacco Use Types Packs/Day Years [...] encounter Miscellaneous Notes * Telephone Encounter - Rebekah Mendoza RN - 08/22/2024 10:48 AM EST TC [place] [facility] [place] [facility] who confirms that the pt has an upcoming CT scan on 09/13 and will need aBUN and CRE ordered for blood work clearance as contrast dye will be involved. The pt also needs a prescription for the prep drink called Readi-CAT2. Pt will need 2 450 ML bottles . * Telephone Encounter - Lebron Acharya - 08/19/2024 12:58 PM EST Tc from spouse requesting call back stating pt has a CT scan for 09/13 and he needs BW prior to CT Scan as well as a prescription that he was advised [address] scan. Please contact Spouse at [phone]. documented in this encounter Plan of Treatment Not on file documented as of this encounter Visit Diagnoses Not on filedocumented in this encounter Additional Health Concerns Assessment Noted Time PHQ-9 Depression Total Score: 0 08/12/20 22 2:31 PM EST documented as of this encounter Care Teams Wood Crafter Relationship Specialty Start Date End Date Jonel Forrester MD [address] [place] [address] PCP - General Internal Medicine 01/23/14 documented as of this encounter
--- OUTSIDE RECORDS SUMMARY | 2024-09-07 12:06 | XMS_ITS | Encounter Summary ---
Author Organization [employer] Address [address] [facility] 7 [place] [address] Care Team Providers Care Log Yard Manager Name Role Phone Jonel Forrester MD Primary Care Provider [phone] Reason for Visit * Reason Comments Med Refill Encounter Details Date Type Department Care Team ([facility] Contact Info) Description 04/06/2023 Refill [facility] CHC MED & PEDS [address] [place] [address] Jonel Forrester MD [address] [place] [address] Oral thrush Social History Tobacco Use Types Packs/Day Years [...] as of this encounter Visit Diagnoses Diagnosis Oral thrush Candidiasis of mouth documented in this encounter Additional Health Concerns Assessment Noted Time PHQ-9 Depression Total Score: 0 08/12/20 22 2:31 PM EST documented as of this encounter Care Teams Log Yard Manager Relationship Specialty Start Date End Date Jonel Forrester MD [address] [place] [address] PCP - General Internal Medicine 01/23/14 documented as of this encounter
--- OUTSIDE RECORDS SUMMARY | 2024-09-07 12:06 | XMS_ITS | Encounter Summary ---
Author Organization [employer] Address [address] [facility] 7t [place] [address] Care Team Providers Care District Superintendent Name Role Phone Jonel Forrester MD Primary Care Provider [phone] Encounter Details Date Type Department Care Team (Late st Contact Info) Description 06/06/2024 Orders Only [facility] CHC MED & PEDS [address] [place], [place] [phone] Jonel Forrester MD [address] [place] [address] Social History Tobacco Use Types Packs/Day Years [...] documented as of this encounter Care Teams District Superintendent Relationship Specialty Start Date End Date Jonel Forrester MD [address] [place] [address] PCP - General Internal Medicine 01/23/14 documented as of this encounter
--- OUTSIDE RECORDS SUMMARY | 2024-09-07 12:06 | XMS_ITS | Encounter Summary ---
Author Organization [employer] Address [address] [facility] 7t [place] [address] Care Team Providers Care Major Gifts Manager Name Role Phone Jonel Forrester MD Primary Care Provider [phone] Reason for Visit * Reason Onset Date Comments Med Refill 07/01/2023 Encounter Details Date Type Department Care Team ([facility] st Contact Info) Description 07/01/2023 Telephone [facility] MEDICINE [address] [place] [address] Jonel Forrester MD [address] [place] [address] Med Refill Social History Tobacco Use Types Packs/Day Years [...] encounter Miscellaneous Notes * Telephone Encounter - Stuart Vega - 07/01/2023 8:41 AM EST Tc from patients spouse Jennie requesting medication refill for fluconazole (Diflucan) 100 MG tablet documented in this encounter Plan of Treatment Not on file documented as of this encounter Visit Diagnoses Not on filedocumented in this encounter Additional Health Concerns Assessment Noted Time PHQ-9 Depression Total Score: 0 08/12/20 22 2:31 PM EST documented as of this encounter Care Teams Major Gifts Manager Relationship Specialty Start Date End Date Jonel Forrester MD [address] [place] [address] PCP - General Internal Medicine 01/23/14 documented as of this encounter
--- OUTSIDE RECORDS SUMMARY | 2024-09-07 12:06 | XMS_ITS | Encounter Summary ---
Author Organization [employer] Address [address] [facility] 7t [place] [address] Care Team Providers Care Criminalist Name Role Phone Jonel Forrester MD Primary Care Provider [phone] Encounter Details Date Type Department Care Team (Late st Contact Info) Description 09/11/2022 Orders Only [facility] MEDICINE [address] [place] [address] Jonel Forrester MD [address] [place] [address] Hemoptysis (Primary Dx); Pneumonia of both lungs due to infectious organism, unspecified part of lung Social History Tobacco Use Types Packs/Day Years [...] PM EST documented as of this encounter Plan of Treatment Not on file documented as of this encounter Visit Diagnoses Diagnosis Hemoptysis- Primary Pneumonia of both lungs due to infectious organism, unspecified part of lung documented in this encounter Additional Health Concerns Assessment Noted Time PHQ-9 Depression Total Score: 0 08/12/20 22 2:31 PM EST documented as of this encounter Care Teams Criminalist Relationship Specialty Start Date End Date Jonel Forrester MD [address] [place] [address] PCP - General Internal Medicine 01/23/14 documented as of this encounter
--- OUTSIDE RECORDS SUMMARY | 2024-09-07 12:06 | XMS_ITS | Encounter Summary ---
Author Organization [employer] Address [address] [facility] 7t [place] [address] Care Team Providers Care Answering Service Agent Name Role Phone Jonel Forrester MD Primary Care Provider [phone] Encounter Details Date Type Department Care Team (Late st Contact Info) Description 06/17/2023 Abstract [facility] MEDICINE [address] [place] [address] Jonel Forrester MD [address] [place] [address] Social History Tobacco Use Types Packs/Day Years [...] on file documented as of this encounter Procedures Procedure Name Priority Date/Time Associated Diagnosis Comments COLONOSCOPY Routine 06/13/2014 documented in this encounter Results * Hm Colonoscopy (06/13/2014) Colonoscopy Normal Normal us Historical Provider HEALTH MAINTENANCE Final Result documented in this encounter Visit Diagnoses Not on filedocumented in this encounter Additional Health Concerns Assessment Noted Time PHQ-9 Depression Total Score: 0 08/12/20 22 2:31 PM EST documented as of this encounter Care Teams Answering Service Agent Relationship Specialty Start Date End Date Jonel Forrester MD [address] [place] [address] PCP - General Internal Medicine 01/23/14 documented as of this encounter
--- OUTSIDE RECORDS SUMMARY | 2024-09-07 12:06 | XMS_ITS | Encounter Summary ---
Author Organization [employer] Address [address] [facility] 7t [place] [address] Care Team Providers Care Lard Maker Name Role Phone Jonel Forrester MD Primary Care Provider [phone] Encounter Details Date Type Department Care Team (Late st Contact Info) Description 06/11/2023 Abstract [facility] MEDICINE [address] [place] [address] Jonel Forrester MD [address] [place] [address] Social History Tobacco Use Types Packs/Day Years [...] documented as of this encounter Care Teams Lard Maker Relationship Specialty Start Date End Date Jonel Forrester MD [address] [place] [address] PCP - General Internal Medicine 01/23/14 documented as of this encounter
[2024-09-07 13:16] LABS: Blood Urea Nitrogen 18 mg/dL (9-16); Estimated Glomerular Filt Rate > 60
== END 2024-09-07 10:46 | disposition home or self-care (01) ==
LOC: HO.LAB 10:45
PROVIDERS: PCP Internal Medicine; Visit Provider Internal Medicine
DX: D69.6 Thrombocytopenia, unspecified (principal)
CPT/HCPCS: 36415; 82565; 84520

== ENCOUNTER 2024-09-13 08:47 | Outpatient (REF) | payer OTHER, SELFPAY ==
--- NOTE | ~2024-09-13 | CT_ITS ---
CLINICAL HISTORY: Induration with erythema of the abdominal wall around the umbilicus CT abdomen and pelvis with contrast Comparison: None Findings: Small right pleural effusion with lower lobe atelectasis. Right middle lobe and left lingular subsegmental atelectasis. No acute bony abnormalities. Central abdominal wall skin thickening noted. No subcutaneous fluid collection noted. Physical exam correlation would be needed. Peripancreatic inflammatory stranding noted. No focal pancreatic abnormality identified. Findings are consistent with acute pancreatitis. No free air or fluid collection. Minimal ascites in abdomen and pelvis. Duodenal wall thickening noted. This appears to be secondary to pancreatic abnormalities. Liver, spleen and adrenal glands unremarkable. Gallbladder is within normal limits. Bilateral kidneys demonstrate no focal abnormality. No renal stones or hydronephrosis. Abdominal aorta is normal in caliber. No significant adenopathy in the pelvis. No acute diverticulitis. Appendix unremarkable. Impression: Right pleural effusion with multifocal basilar atelectasis Acute pancreatitis without focal abnormality Minimal ascites Central abdominal wall skin thickening This document has been electronically signed by: Cameron Pandya MD on 09/13/2024 21:07:39
--- OUTSIDE RECORDS SUMMARY | 2024-09-13 09:06 | XMS_ITS | Referral Summary ---
Author Organization [facility] Address [address] [place] [address] Care Team Providers Care Assistant Professor Of Biochemistry Name Role Phone Jonel Forrester Primary Care Provider + [phone] Allergies No known active allergies Medications ferrous [...] Not on file Procedures * Due to [place] [employer] law, this organization might not be sharing negative HIV tests. Procedure Name Priority Date/Time Associated Diagnosis Comments CT CHEST W CONTRAST Routine 06/12/2017 5 :07 PM EDT Cough Lymphadenopathy Hepatomegaly HEPATITIS C ANTIBODY W/REFLEX TO HCV RNA, QUANTITATIVE PCR Routine 01/26/2017 9:57 AM EDT from Last 3 Months or Most Recently Relevant to Health Maintenance Results * Due to [place] [employer] law, this organization might not be sharing [...] not known, consider bronchoscopy for further evaluation. [id number] Narrative 06/15/2017 2:[address] CHEST [...] the prior chest CT without change 139. Uagrujzco-bf-rne opacities are seen in the right middle lobe and right lowerlobe that were present in the prior exam and slightly more prominent inthe right upper lobe posteriorly compared to prior exam. Some of thepatchy nodules of the right upper lobe have resolved. Minimal bogu-ru-wkaymkujixhm are seen in the left upper lobe [...] is no significant interval change in the cgze-wz-ftucbxbeujyf from end bronchial inflammation/bronchiolitis as congested inthe prior study. No consolidation or pleural effusion is noted. There isalso no change in the mild bronchiectasis of the lower lobes. If etiologyof the bronchiolitis/inflammation is not known, consider bronchoscopy forfurther evaluation. [id number] Wan Lee MD IMG CT PROCEDURES Final Result * Hepatitis C Antibody w/Reflex to HCV RNA, Quantitative PCR (01/26/2017 9:57 AM EDT) Hepatitis C Antibody NON-REACTI VE NON-REACT MAXIMINO [facility] Signal To Cut-Off 0.01 <1.00 [facility] 01/26/2017 9:57 AM EDT 01/26/2017 10:39 AM EDT Renee Moore PLANT OPERATOR CONTROL ROOM OPERATOR LAB BLOOD ORDERABLES Final Result [facility] [address] [facility] 3rd Floor, [place] [address], [place] [phone] from Last 3 Months or Most Recently Relevant to Health Maintenance Insurance HSNO/FREE CARE Advance Directives Documents on File Type Date Recorded Patient Obstetrics Teacher Expl [facility] Care Proxy 05/29/2017 10:55 AM Care Teams Assistant Professor Of Biochemistry Relationship Specialty Start Date End Date Jonel Forrester [address] [place] [address] PCP - General 03/05/17
--- OUTSIDE RECORDS SUMMARY | 2024-09-13 09:06 | XMS_ITS | Encounter Summary ---
Author Organization [employer] Address [address] [facility] 7t [place] [address] Care Team Providers Care Program Development Specialist Name Role Phone Jonel Forrester MD Primary Care Provider [phone] Encounter Details Date Type Department Care Team (Late st Contact Info) Description 08/22/2024 Orders Only [facility] CHC MED & PEDS [address] [place], [place] [phone] Jonel Forrester MD [address] [place] [address] Thrombocytopenia ([facility]) (Primary Dx) Social History Tobacco Use Types [...] Procedure Name Priority Date/Time Associated Diagnosis Comments CREATININE, SERUM Routine 09/07/2024 11: 09 AM EST Thrombocytopenia (CMS/HCC) UREA NITROGEN (BUN) Routine 09/07/2024 1 1:09 AM EST Thrombocytopenia (CMS/HCC) documented in this encounter Results * Creatinine, Serum (09/07/2024 11:09 AM EST) Creatinine, Serum 0.88 0.5 - 1.4 mg/dL [facility] Estimated Glomerular Filt Rate >60 [facility] Comment:Chronic Kidney Disea se: Estimated GFR < 60 mL/min/[id number] Kidney Disease: Estimated GFR < 15 mL/min/1.73m2 Blood Venous blood specimen / Unknown 09/07/2024 11:09 AM EST 09/07/2024 11:09 AM EST us Jonel Forrester MD LAB BLOOD ORDERABLES Final Result [facility] [address] [place] [phone] * (ABNORMAL) BUN (Blood Urea Nitrogen) (09/07/2024 11:09 AM EST) Urea Nitrogen (BUN) 18(H) 9 - 16 mg/dL [facility] Blood Venous blood specimen / Unknown 09/07/2024 11:09 AM EST 09/07/2024 11:09 AM EST Jonel Forrester MD LAB BLOOD ORDERABLES Final Result [facility] [address] [place] [address] [phone] documented in this encounter Visit Diagnoses Diagnosis Thrombocytopenia (CMS/HCC)- Primary Unspecified thrombocytopenia documented in this encounter Additional Health Concerns Assessment Noted Time PHQ-9 Depression Total Score: 0 08/12/20 22 2:31 PM EST documented as of this encounter Care Teams Program Development Specialist Relationship Specialty Start Date End Date Jonel Forrester MD [address] [place] [address] PCP - General Internal Medicine 01/23/14 documented as of this encounter
--- OUTSIDE RECORDS SUMMARY | 2024-09-13 09:06 | XMS_ITS | Clinical Summary ---
Author Organization [facility] Address [address] [place] [address] Care Team Providers Care Paver Name Role Phone Jonel Forrester Primary Care Provider + [phone] Allergies No known active allergies Medications ferrous [...] complete this topic Procedures * Due to [place] [employer] law, this organization might not be sharing negative HIV tests. Procedure Name Priority Date/Time Associated Diagnosis Comments CT CHEST W CONTRAST Routine 06/12/2017 5 :07 PM EDT Cough Lymphadenopathy Hepatomegaly HEPATITIS C ANTIBODY W/REFLEX TO HCV RNA, QUANTITATIVE PCR Routine 01/26/2017 9:57 AM EDT from Last 3 Months or Most Recently Relevant to Health Maintenance Results * Due to [place] [employer] law, this organization might not be sharing [...] not known, consider bronchoscopy for further evaluation. [id number] Narrative 06/15/2017 2:[address] CHEST [...] the prior chest CT without change 139. Oafkwxoez-lw-too opacities are seen in the right middle lobe and right lowerlobe that were present in the prior exam and slightly more prominent inthe right upper lobe posteriorly compared to prior exam. Some of thepatchy nodules of the right upper lobe have resolved. Minimal ypab-xp-wlygxbiikapz are seen in the left upper lobe [...] is no significant interval change in the cjji-wj-oxmwutetvafs from end bronchial inflammation/bronchiolitis as congested inthe prior study. No consolidation or pleural effusion is noted. There isalso no change in the mild bronchiectasis of the lower lobes. If etiologyof the bronchiolitis/inflammation is not known, consider bronchoscopy forfurther evaluation. [id number] Wan Lee MD IMG CT PROCEDURES Final Result * Hepatitis C Antibody w/Reflex to HCV RNA, Quantitative PCR (01/26/2017 9:57 AM EDT) Hepatitis C Antibody NON-REACTI VE NON-REACT MAXIMINO [facility] Signal To Cut-Off 0.01 <1.00 [facility] 01/26/2017 9:57 AM EDT 01/26/2017 10:39 AM EDT Renee Moore CUSTOMER ENGINEER LAB BLOOD ORDERABLES Final Result [facility] [address] [facility] 3rd [address], [place] [address], from Last 3 Months or Most Recently Relevant to Health Maintenance Insurance [address] [place] [id number] HSNO/FREE CARE [facility] Advance Directives Documents on File Type Date Recorded Patient Battery Technician Expl [facility] Care Proxy 05/29/2017 10:55 AM Care Teams Paver Relationship Specialty Start Date End Date Jonel Forrester [address] [place] [address] PCP - General 03/05/17
--- OUTSIDE RECORDS SUMMARY | 2024-09-13 09:06 | XMS_ITS | Encounter Summary ---
Author Organization [facility] Address [address] [place] [address] Care Team Providers Care Checker/Stocker Name Role Phone Jonel Forrester Primary Care Provider Encounter Details Date Type Department Care Team ([facility] Contact Info) Description 09/08/2022 Telephone [facility] [address] [place] [address] Telephone Intake, Staff Social History Tobacco Use [...] on filedocumented in this encounter Care Teams Checker/Stocker Relationship Specialty Start Date End Date Jonel Forrester [address] [place] [address] PCP - General 03/05/17 documented as of this encounter
--- OUTSIDE RECORDS SUMMARY | 2024-09-13 09:06 | XMS_ITS | Encounter Summary ---
Author Organization [employer] Address [address] [facility] 7t [place] [address] Care Team Providers Care Media Sales Consultant Name Role Phone Jonel Forrester MD Primary Care Provider [phone] Encounter Details Date Type Department Care Team (Late st Contact Info) Description 08/26/2024 Refill C [facility] MED & PEDS [address] [place], [place] [phone] Jonel Forrester MD [address] [place] [address] Thrombocytopenia ([facility]) Social History Tobacco Use Types Packs/Day Years [...] to be sent to [phone] - [address] documented in this encounter Plan of Treatment Not on file documented as of this encounter Visit Diagnoses Diagnosis Thrombocytopenia (CMS/HCC) Unspecified thrombocytopenia documented in this encounter Additional Health Concerns Assessment Noted Time PHQ-9 Depression Total Score: 0 08/12/20 22 2:31 PM EST documented as of this encounter Care Teams Media Sales Consultant Relationship Specialty Start Date End Date Jonel Forrester MD [address] [place] [phone] PCP - General Internal Medicine 01/23/14 documented as of this encounter
--- OUTSIDE RECORDS SUMMARY | 2024-09-13 09:06 | XMS_ITS | Clinical Summary ---
Author Organization [employer] Address 75 [facility] 7t [place] [address] Care Team Providers Care Negative Spotter Name Role Phone Jonel Forrester MD Primary Care Provider +1- [phone] Allergies No known active allergies Medications ipratropium-a [...] (07/05/2024 4:58 PM EST): To follow-up with [facility] allergy as scheduled. No acute intervention done today. 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 Encounters Date Type Department Care Team Description 08/29/2024 Telephone [facility] [address] [place] [address] Jonel Forrester MD Nurse Triage 08/26/2024 Refill [facility] [address] [place] [address] Jonel Forrester MD Thrombocytopenia (CMS/HCC) 08/25/2024 Telephone [facility] [address] [place] [address] Jonel Forrester MD callback requested 08/22/2024 Orders Only [facility] [address] [place] [address] Jonel Forrester MD Thrombocytopenia ([facility]) (Primary Dx) 08/19/2024 Telephone [facility] [address] [place] [address] Jonel Forrester MD Call Back Request 07/29/2024 Orders Only [facility] [address] [place] [address] Jonel Forrester MD Steatocystoma (Primary Dx) 07/26/2024 Telephone [facility] [address] [place] [address] Jonel Forrester MD Referral 07/26/2024 Telephone [facility] [address] [place] [address] ABDOMEN 07/25/2024 Telephone [facility] [address] [place] [address] Jonel Forrester MD Referral; CT scan order 07/12/2024 10:30 AM EST Office Visit [facility] [address] [place] [address] Jonel Forrester MD Porokeratosis (Primary Dx); Steatocystoma; Erythema 07/12/2024 Travel 07/05/2024 3:30 PM EST Office Visit [facility] [address] [place] [address] Jonel Forrester MD Nail dystrophy (Primary Dx); Hypogammaglobulinemia (CMS/HCC); Skin pustule 07/05/2024 Travel 06/28/2024 Patient Outreach [facility] [address] [place] [address] Jonel Forrester MD Pre-visit Planning ([facility] unable to reach [facility]) 06/14/2024 Telephone [facility] [address] [place] [address] Jonel Forrester MD from Last 3 Months [...] 09/07/2024 1 1:09 AM EST Thrombocytopenia (CMS/HCC) XR CHEST 2 VIEWS Routine 08/15/2024 11:1 9 AM EST EPIDERMAL / DERMAL SHAVING Routine 07/12/2024 2:51 PM EST Porokeratosis LIPID PANEL, STANDARD Routine 08/24/2023 10:22 AM EST Splenomegaly HEPATITIS C ANTIBODY Routine 01/14/2023 3:47 PM EDT HIV ANTIBODY/ANTIGEN ([place] DPH) Routine 01/14/2023 3:47 PM EDT HM COLONOSCOPY Routine 06/13/2014 from Last 3 Months or Most Recently Relevant to Health Maintenance Results * Creatinine, Serum (09/07/2024 11:09 AM EST) Creatinine, Serum 0.88 0.5 - 1.4 mg/dL [facility] Estimated Glomerular Filt Rate >60 [facility] Comment:Chronic Kidney Disea se: Estimated GFR < 60 mL/min/1.65a2Bptqxy Kidney Disease: Estimated GFR < 15 mL/min/1.73m2 Blood Venous blood specimen / Unknown 09/07/2024 11:09 AM EST 09/07/2024 11:09 AM EST us Jonel Forrester MD LAB BLOOD ORDERABLES Final Result [facility] [address] [place] [phone] * (ABNORMAL) BUN (Blood Urea Nitrogen) (09/07/2024 11:09 AM EST) Urea Nitrogen (BUN) 18(H) 9 - 16 mg/dL [facility] Blood Venous blood specimen / Unknown 09/07/2024 11:09 AM EST 09/07/2024 11:09 AM EST us Thevenin Beauzile MD LAB BLOOD ORDERABLES Final Result [facility] [address] [place] [address] [phone] * XR Chest 2 Views (08/15/2024 11:19 AM EST) Anatomical Region Laterality Modality Chest Radiographic Angelique ging 08/15/2024 11:1 9 AM EST Narrative 08/15/2024 2:27 PM EST ? [facility] ?[address] ?[place] [address] ?XRay Report ? Signed ? Patient: Talon Stanton ?MR#: [id number] ?? [id number] ? : 1965 ?Acct:[id number] ? Age/Sex: 59 / M ?ADM Date: 08/15/24 ? Loc: HO.XRAY ? Attending Dr: Ingrid Wahl STEAM METER READER ? Ordering Physician: Ingrid Wahl NP ?? Date of Service: 08/15/24 ?? Procedure(s): XR chest 2V ?? Accession Number(s): [id number] ? cc: Jonel Forrester MD; Ingrid Wahl NP ? EXAMINATION: ?? XR CHEST ? CLINICAL [...] 02:24 PM EST RP ? Dictated By: ?Ingrid,José Miguel S MD ? Signed By: ?<Electronically signed by José Miguel S Ingrid, MD in OV> ?08/15/24 1424 ? DD/ 1119 ? TD/TT: 08/15/24 1125 ? Gas Cutting Machine Operator: GERONIMO ? Procedure Note Donotuseinterpreter, Image - 08/15/[address] [address] XRay Report Signed Patient: Talon StantonMR#: [id number] : 1965Acct:[id number] Age/Sex: 59 / MADM Date: 08/15/24 Loc: HO.XRAY Attending Dr: Ingrid Wahl NP Ordering Physician: Ingrid Wahl NP Date of Service: 08/15/24 Procedure(s): XR chest 2V Accession Number(s): [id number] cc: Jonel Forrester MD; Ingrid Wahl NP EXAMINATION: XR CHEST CLINICAL INFORMATION: R05.9 [...] Miguel Quintero MD 08/15/2024 02:24 PM EST Dictated By: José Miguel Quintero MD Signed By: <Electronically signed by José Miguel Quintero MD in OV> 08/15/24 1424 DD/ 1119 TD/TT: 08/15/24 1125 Gas Cutting Machine Operator: GERONIMO us [facility] External Provider IMG XR PROCEDURES Final Result * Shave removal (07/12/2024 2:51 PM EST) Narrative Beauzile, Thevenin, MD - 07/12/2024 2:51 PM EST Jonel Forrester MD ? 07/12/2024 ??2:55 PM Shave removal Date/Time: 07/12/2024 2:51 PM Performed by: Jonel Forrester MD Authorized by: Jonel Forrester MD ?? Consent: ??Consent obtained: ??Verbal ??Risks discussed: ??Bleeding, infection, pain and poor cosmetic result ??Alternatives discussed: ??Observation [place] protocol: ??Procedure explained and questions answered to [...] 10:22 AM EST) Triglycerides 88 <150 mg/dL [facility] Comment:Desirable Triglyceri de: less than 150 mg/dLBorderline High Triglyceride 150-199 mg/dLHigh Triglyceride: 200-499 mg/dLVery High Triglyceride: greater than or equal to 5OO mg/dL Cholesterol 204(H) <200 mg/dL [facility] Comment:Desirable Cholestero l: less than 200 mg/dLBorderline High Cholesterol: 200-239 mg/dLHigh Cholesterol: greater than 239 mg/dL LDL Cholesterol Calculated 137(H) <100 mg/dL [facility] Comment:Desirable LDL: less than 100 mg/dLNear Optimal/Above Optimal LDL: 110- 129 mg/dLBorderline High LDL: 130-159 mg/dLHigh LDL: 160-189 mg/dLVery High LDL: greater than or equal to 190 mg/dL HDL Cholesterol 50 >40 mg/dL [facility] Comment:Desirable HDL: great er than 40 mg/dL Note: This HDL assay may give artificially low results in patients with liver disease. Blood Venous blood specimen / Unknown 08/24/2023 10:22 AM EST 08/24/2023 10:22 AM EST Jonel Forrester MD LAB BLOOD ORDERABLES Final Result Performing Organization Address [facility] Co de Phone Number [facility] [address] [place] [phone] * Hepatitis C Ab (01/14/2023 3:47 PM EDT) Hepatitis C Antibody Nonreactive Nonreactive [facility] Comment:Antibodies to HCV no t detected; does not exclude early acuteHCV infection. 01/14/2023 3:47 PM EDT 01/14/2023 3:48 PM EDT [facility] External Provider LAB BLO OD ORDERABLES Final Result Performing Organization Address [facility] de Phone Number [facility] [address] [place] [phone] * HIV Ab/Ag (KRUNAL NAT) (01/14/2023 3:47 PM EDT) HIV AB/AG Nonreactive Nonreactive [facility] Comment:HIV-1 p24 Ag and/or HIV-1/HIV-2 Ab not detected.A test result that is nonreactive does not exclude thepossibility of exposure to or infection with HIV-1 and/orHIV-2. Nonreactive results in this assay for individualswith prior exposure to HIV-1 and/or HIV-2 may be due toantigen and antibody levels that are below the limit ofdetection of this assay.The M[employer] HIV Ag/Ab Combo assay result andsupplemental assay results should be interpreted inconjunction with the patient's clinical presentation,history and other laboratory results. If the results areinconsistent with clinical evidence, additional testing issuggested to confirm the result. 01/14/2023 3:47 PM EDT 01/14/2023 3:48 PM EDT [facility] External Provider LAB BLO OD ORDERABLES Final Result [facility] [address] [place] [address] [phone] * Hm Colonoscopy (06/13/2014) Colonoscopy Normal Normal Historical Provider MD HEALTH MAINTENANCE Final Result from Last 3 Months or Most Recently Relevant to Health Maintenance Insurance , [address] [place] [address] Care Teams Negative Spotter Relationship Specialty Start Date End Date Jonel Forrester MD [address] [place] [address] [place] [address] PCP - General Internal Medicine 01/23/14
--- OUTSIDE RECORDS SUMMARY | 2024-09-13 09:06 | XMS_ITS | Encounter Summary ---
Author Organization [employer] Address 75 [facility] 7t [place] [address] Care Team Providers Care Catechist Name Role Phone Jonel Forrester MD Primary Care Provider [phone] Reason for Visit * Reason Onset Date Comments Referral 07/26/2024 Encounter Details Date Type Department Care Team ([facility] st Contact Info) Description 07/26/2024 Telephone [facility] [address] [place] [address] Jonel Forrester MD [address] [place] [address] Referral Social History Tobacco Use Types Packs/Day [...] ask PCP a new order. Callback number [phone] documented in this encounter Plan of Treatment Not on file documented as of this encounter Visit Diagnoses Not on filedocumented in this encounter Additional Health Concerns Assessment Noted Time PHQ-9 Depression Total Score: 0 08/12/20 22 2:31 PM EST documented as of this encounter Care Teams Catechist Relationship Specialty Start Date End Date Jonel Forrester MD [address] [place] [address] PCP - General Internal Medicine 01/23/14 documented as of this encounter
--- OUTSIDE RECORDS SUMMARY | 2024-09-13 09:06 | XMS_ITS | Encounter Summary ---
Author Organization [employer] Address 75 [facility] 7 [place] [address] Care Team Providers Care Sample Book Maker Name Role Phone Jonel Forrester MD Primary Care Provider [phone] Reason for Visit * Reason Onset Date Comments Nurse Triage 08/29/2024 Encounter Details Date Type Department Care Team ([facility] st Contact Info) Description 08/29/2024 Telephone [facility] [address] [place] [address] Jonel Forrester MD [address] [place] [address] Nurse Triage Social History Tobacco Use Types [...] - 08/29/2024 3:55 PM EST TC to [facility]-needs to be NPO by 0600. TC to [facility]- no fasting needed prior to labs. [...] with plan. * Telephone Encounter - Cele Alfonso - 08/29/2024 2:15 PM EST Patient calling to report noticed that pt has yellow eyes and is concern . Patient speaks Croatian. Advised triage nurse will call patient back. documented in this encounter Plan of Treatment Not on file documented as of this encounter Visit Diagnoses Not on filedocumented in this encounter Additional Health Concerns Assessment Noted Time PHQ-9 Depression Total Score: 0 08/12/20 22 2:31 PM EST documented as of this encounter Care Teams Sample Book Maker Relationship Specialty Start Date End Date Jonel Forrester MD [address] [place] [address] PCP - General Internal Medicine 01/23/14 documented as of this encounter
--- OUTSIDE RECORDS SUMMARY | 2024-09-13 09:06 | XMS_ITS | Encounter Summary ---
Author Organization [employer] Address 75 [facility] 7t [place] [address] Care Team Providers Care Scientific Process Operator Name Role Phone Jonel Forrester MD Primary Care Provider [phone] Encounter Details Date Type Department Care Team (Late st Contact Info) Description 06/06/2024 Orders Only [facility] [address] [place], [place] [phone] Jonel Forrester MD [address] [place] [address] Social History Tobacco Use Types Packs/Day Years [...] documented as of this encounter Care Teams Scientific Process Operator Relationship Specialty Start Date End Date Jonel Forrester MD [address] [place] [address] PCP - General Internal Medicine 01/23/14 documented as of this encounter
--- OUTSIDE RECORDS SUMMARY | 2024-09-13 09:06 | XMS_ITS | Encounter Summary ---
Author Organization [employer] Address 75 [facility] 7 [place] [address] Care Team Providers Care Construction Field Engineer Name Role Phone Jonel Forrester MD Primary Care Provider [phone] Reason for Visit * Reason Onset Date Comments Call Back Request 08/19/2024 Encounter Details Date Type Department Care Team ([facility] st Contact Info) Description 08/19/[address] [facility] [address] [place] [address] Jonel Forrester MD [address] [place] [address] Call Back Request Social History Tobacco Use [...] 08/22/2024 10:48 AM EST TC placed to [facility] who confirms that the pt has [...] before CT scan. Please contact Spouse at [phone]. documented in this encounter Plan of Treatment Not on file documented as of this encounter Visit Diagnoses Not on filedocumented in this encounter Additional Health Concerns Assessment Noted Time PHQ-9 Depression Total Score: 0 08/12/20 22 2:31 PM EST documented as of this encounter Care Teams Construction Field Engineer Relationship Specialty Start Date End Date Jonel Forrester MD [address] [place] [address] PCP - General Internal Medicine 01/23/14 documented as of this encounter
--- OUTSIDE RECORDS SUMMARY | 2024-09-13 09:06 | XMS_ITS | Encounter Summary ---
Author Organization [employer] Address 75 [facility] 7t [place] [address] Care Team Providers Care Actor Understudy Name Role Phone Jonel Forrester MD Primary Care Provider [phone] Reason for Visit * Reason Onset Date Comments Referral 07/25/2024 CT scan order 07/25/2024 Encounter Details Date Type Department Care Team ([facility] Contact Info) Description 07/25/2024 Telephone [facility] [address] [place] [address] Jonel Forrester MD [address] [place] [address] Referral; CT scan order Social History Tobacco [...] unable to schedule appointment. Contact Jaye at [phone] documented in this encounter Plan of Treatment Not on file documented as of this encounter Visit Diagnoses Not on filedocumented in this encounter Additional Health Concerns Assessment Noted Time PHQ-9 Depression Total Score: 0 08/12/20 22 2:31 PM EST documented as of this encounter Care Teams Actor Understudy Relationship Specialty Start Date End Date Jonel Forrester MD [address] [place] [address] PCP - General Internal Medicine 01/23/14 documented as of this encounter
--- OUTSIDE RECORDS SUMMARY | 2024-09-13 09:07 | XMS_ITS | Encounter Summary ---
Author Organization [employer] Address 75 [facility] [address] [place] [address] Care Team Providers Care Inspector Elevators Name Role Phone Jonel Forrester MD Primary Care Provider [phone] Reason for Visit * Reason Comments Med Refill Encounter Details Date Type Department Care Team ([facility] Contact Info) Description 04/06/2023 Refill [facility]S [address] [place] [address] Jonel Forrester MD [address] [place] [address] Oral thrush Social History Tobacco Use Types [...] documented as of this encounter Care Teams Inspector Elevators Relationship Specialty Start Date End Date Jonel Forrester MD [address] [place] [address] PCP - General Internal Medicine 01/23/14 documented as of this encounter
--- OUTSIDE RECORDS SUMMARY | 2024-09-13 09:07 | XMS_ITS | Encounter Summary ---
Author Organization [employer] Address 75 [facility] 7t [place] [address] Care Team Providers Care Vessel Crew Member Name Role Phone Jonel Forrester MD Primary Care Provider [phone] Reason for Visit * Reason Onset Date Comments Med Refill 07/01/2023 Encounter Details Date Type Department Care Team ([facility] st Contact Info) Description 07/01/2023 Telephone [facility] [address] [place] [address] Jonel Forrester MD [address] [place] [address] Med Refill Social History Tobacco Use Types [...] documented as of this encounter Care Teams Vessel Crew Member Relationship Specialty Start Date End Date Jonel Forrester MD [address] [place] [address] PCP - General Internal Medicine 01/23/14 documented as of this encounter
--- OUTSIDE RECORDS SUMMARY | 2024-09-13 09:07 | XMS_ITS | Encounter Summary ---
Author Organization [employer] Address 75 [facility] 7t [place] [address] Care Team Providers Care Tuna Purse Seiner Name Role Phone Jonel Forrester MD Primary Care Provider [phone] Encounter Details Date Type Department Care Team (Late st Contact Info) Description 06/11/2023 Abstract [facility] MED[facility]INE [address] [place] [address] Jonel Forrester MD [address] [place] [address] Social History Tobacco Use Types Packs/Day Years [...] documented as of this encounter Care Teams Tuna Purse Seiner Relationship Specialty Start Date End Date Jonel Forrester MD [address] [place] [address] PCP - General Internal Medicine 01/23/14 documented as of this encounter
--- OUTSIDE RECORDS SUMMARY | 2024-09-13 09:07 | XMS_ITS | Encounter Summary ---
Author Organization [employer] Address 75 [facility] 7t [place] [address] Care Team Providers Care Relocation Manager Name Role Phone Jonel Forrester MD Primary Care Provider [phone] Encounter Details Date Type Department Care Team (Late st Contact Info) Description 08/04/2022 Orders Only [facility] MED[facility]INE [address] [place], [place] [phone] Jonel Forrester MD [address] [place] [address] Social History Tobacco Use Types Packs/Day Years [...] on filedocumented in this encounter Care Teams Relocation Manager Relationship Specialty Start Date End Date Jonel Forrester MD [address] [place] [address] PCP - General Internal Medicine 01/23/14 documented as of this encounter
--- OUTSIDE RECORDS SUMMARY | 2024-09-13 09:07 | XMS_ITS | Continuity of Care Document ---
Author Organization [facility] Address [address] [place] [address] [address] [place] [phone] Phone Care Team Providers Care Textile Clothing And Footwear Mechanic Name Role Phone Jeb [place] MD, FACS, RVT Unavailable Unavailable Advance Directives Directive Yes / No Effective Date File Name No Information Encounters Encounter Description Practice Location Reason(s) For Visit Diagnoses Date Provider Providers Copied on Encounter [facility], [address] [place] [address] Dr [address], [place], [id number], tel:[phone] [address] [facility] No Information [address] Santy Bryan. [address] [address], [place], [address], [place]. tel:[phone] Referring Provider: Jonel Molina [employer], [address] [place] [address], [address]. tel:[phone] Family History Family Member Type Diagnosis Age At Onset No Information Payers Payer name Insurance type Covered alliance party ID Authoriza tion(s) No Information Social [...]
--- OUTSIDE RECORDS SUMMARY | 2024-09-13 09:07 | XMS_ITS | Encounter Summary ---
Author Organization [employer] Address 75 [facility] 7 [place] [address] Care Team Providers Care Sliver Cutter Name Role Phone Jonel Forrester MD Primary Care Provider [phone] Reason for Visit * Reason Onset Date Comments Referral 09/05/2022 Encounter Details Date Type Department Care Team ([facility] st Contact Info) Description 09/05/2022 Telephone [facility] MED [facility] PEDS [address] [place] [address] Jonel Forrester MD [address] [place] [address] Referral Social History Tobacco Use Types Packs/Day [...] Miscellaneous Notes * Telephone Encounter - Arina [place] - 09/05/2022 12:06 PM EST Outbound call to Jennie Gandara ( spouse ) to advised instructional writer spoke to Fabric Worker Foreman and referral will be sent today with [...] documented as of this encounter Care Teams Sliver Cutter Relationship Specialty Start Date End Date Jonel Forrester MD [address] [place] [address] PCP - General Internal Medicine 01/23/14 documented as of this encounter
--- OUTSIDE RECORDS SUMMARY | 2024-09-13 09:07 | XMS_ITS | Encounter Summary ---
Author Organization [employer] Address 75 [facility] 7t [place] [address] Care Team Providers Care Etl Analyst Name Role Phone Jonel Forrester MD Primary Care Provider [phone] Encounter Details Date Type Department Care Team (Late st Contact Info) Description 09/11/2022 Orders Only [facility] MEDICINE [address] [place] [address] Jonel Forrester MD [address] [place] [address] Hemoptysis (Primary Dx); Pneumonia of both lungs [...] documented as of this encounter Care Teams Etl Analyst Relationship Specialty Start Date End Date Jonel Forrester MD [address] [place] [address] PCP - General Internal Medicine 01/23/14 documented as of this encounter
--- OUTSIDE RECORDS SUMMARY | 2024-09-13 09:07 | XMS_ITS | Encounter Summary ---
Author Organization [employer] Address 75 [facility] 7t [place] [address] Care Team Providers Care Automotive General Sales Manager Name Role Phone Jonel Forrester MD Primary Care Provider [phone] Reason for Visit * Reason Onset Date Comments callback requested 08/25/2024 Encounter Details Date Type Department Care Team ([facility] st Contact Info) Description 08/25/2024 Telephone [facility] MEDICINE [address] [place] [address] Jonel Forrester MD [address] [place] [address] callback requested Social History Tobacco Use Types [...] before CT scan. Please contact Spouse at [phone]. documented in this encounter Plan of Treatment Not on file documented as of this encounter Visit Diagnoses Not on filedocumented in this encounter Additional Health Concerns Assessment Noted Time PHQ-9 Depression Total Score: 0 08/12/20 22 2:31 PM EST documented as of this encounter Care Teams Automotive General Sales Manager Relationship Specialty Start Date End Date Jonel Forrester MD [address] [place] [address] PCP - General Internal Medicine 01/23/14 documented as of this encounter
--- OUTSIDE RECORDS SUMMARY | 2024-09-13 09:07 | XMS_ITS | Encounter Summary ---
Author Organization [employer] Address 75 [facility] 7t [place] [address] Care Team Providers Care Interpreter And Translator Name Role Phone Jonel Forrester MD Primary Care Provider [phone] Encounter Details Date Type Department Care Team (Late st Contact Info) Description 06/17/2023 Abstract [facility] MEDICINE [address] [place] [address] Jonel Forrester MD 505 [place] [address] Social History Tobacco Use Types Packs/Day Years [...] documented as of this encounter Care Teams Interpreter And Translator Relationship Specialty Start Date End Date Jonel Forrester MD [address] [place] [address] PCP - General Internal Medicine 01/23/14 documented as of this encounter
[2024-09-13] MEDS: iohexoL 350 MG/ML 100 ML INFUS..BTL IV (09:28)
== END 2024-09-13 08:48 | disposition home or self-care (01) ==
LOC: HO.CT 08:47
PROVIDERS: PCP Internal Medicine; Visit Provider Internal Medicine
DX: L72.8 Other follicular cysts of the skin and subcutaneous tissue (principal)
CPT/HCPCS: 74177; Q9967

== ENCOUNTER → 2024-09-13 08:51 | Outpatient (BNV) | payer OTHER, SELFPAY | PROVIDERS: PCP Internal Medicine; Visit Provider Radiology Diagnostic Radiology | DX: K85.90 Acute pancreatitis without necrosis or infection, unspecified (principal); J90 Pleural effusion, not elsewhere classified; J98.11 Atelectasis | CPT/HCPCS: 74177 ==

== ENCOUNTER 2024-09-21 12:41 | Outpatient (REF) | payer OTHER, SELFPAY ==
[2024-09-21 14:01] LABS: MANUAL DIFF FLAG NO
--- OUTSIDE RECORDS SUMMARY | 2024-09-21 14:02 | XMS_ITS | Encounter Summary ---
Author Organization [employer] Address 75 [facility] 7 [place] [address] Care Team Providers Care Director Embalmer Name Role Phone Jonel Forrester MD Primary Care Provider [phone] Reason for Visit * Reason Onset Date Comments Referral 09/05/2022 Encounter Details Date Type Department Care Team ([facility] st Contact Info) Description 09/05/2022 Telephone [facility] CHC MED & PEDS [address] [place] [address] Jonel Forrester MD 505 [place] [address] Referral Social History Tobacco Use Types Packs/Day [...] Miscellaneous Notes * Telephone Encounter - Arina Wakeeney - 09/05/2022 12:06 PM EST Outbound call to Jennie Gandara ( spouse ) to advised technical document writer spoke to Coiled Tubing Supervisor and referral will be sent today with [...] documented as of this encounter Care Teams Director Embalmer Relationship Specialty Start Date End Date Jonel Forrester MD [address] [place] [address] PCP - General Internal Medicine 01/23/14 documented as of this encounter
--- OUTSIDE RECORDS SUMMARY | 2024-09-21 14:02 | XMS_ITS | Continuity of Care Document ---
Author Organization [facility] Address [address] [place] [address] [address] [place] [phone] Phone Care Team Providers Care Condenser Tester Name Role Phone Jeb Wallace MD, FACS, RVT Unavailable Unavailable Advance Directives Directive Yes / No Effective Date File Name No Information Encounters Encounter Description Practice Location Reason(s) For Visit Diagnoses Date Provider Providers Copied on Encounter [facility], [address] [place] [address] Dr [address], [place], [id number], tel:[phone] [address] [facility] No Information 3 Santy Bryan. [address] [address], [place], [address], [place]. tel:[phone] Referring Provider: Jonel Molina Woodruff, [address] [place] [address], [address]. tel:[phone] Family History Family Member Type Diagnosis Age [...]
--- OUTSIDE RECORDS SUMMARY | 2024-09-21 14:02 | XMS_ITS | Clinical Summary ---
Author Organization [employer] [facility] Address [address] [place] [address] Care Team Providers Care Cdl Program Coordinator Name Role Phone Unavailable Primary Care Provider Unavailabl e Social History Tobacco Use Types Packs/Day Years Used Date Smoking Tobacco: Never Assessed Sex and Gender Information Value Date Recorded Sex Assigned at Not on file Legal Sex Male 1:12 PM EDT Gender Identity Not on file Sexual Orientation Not on file Plan of Treatment Not on file Medical Devices Not on file
--- OUTSIDE RECORDS SUMMARY | 2024-09-21 14:02 | XMS_ITS | Encounter Summary ---
Author Organization [employer] Address 75 [facility] 7 [place] [address] Care Team Providers Care Advertising Assistant Name Role Phone Jonel Forrester MD Primary Care Provider [phone] Reason for Visit * Reason Onset Date Comments callback requested 08/25/2024 Encounter Details Date Type Department Care Team ([facility] Contact Info) Description 08/25/2024 Telephone [facility] MEDICINE [address] [place] [address] Jonel Forrester MD [address] [place] [phone] callback requested Social History Tobacco Use Types [...] before CT scan. Please contact Spouse at [phone]. documented in this encounter Plan of Treatment Not on file documented as of this encounter Visit Diagnoses Not on filedocumented in this encounter Additional Health Concerns Assessment Noted Time PHQ-9 Depression Total Score: 0 08/12/20 22 2:31 PM EST documented as of this encounter Care Teams Advertising Assistant Relationship Specialty Start Date End Date Jonel Forrester MD [address] [place] [address] PCP - General Internal Medicine 01/23/14 documented as of this encounter
--- OUTSIDE RECORDS SUMMARY | 2024-09-21 14:02 | XMS_ITS | Encounter Summary ---
Author Organization [employer] Address 75 [facility] 7t [place] [address] Care Team Providers Care Cranberry Bog Supervisor Name Role Phone Jonel Forrester MD Primary Care Provider [phone] Encounter Details Date Type Department Care Team (Late st Contact Info) Description 06/17/2023 Abstract [facility] MEDICINE [address] [place] [address] Jonel Forrester MD 505 [place] [address] Social History Tobacco Use Types Packs/Day Years [...] documented as of this encounter Care Teams Cranberry Bog Supervisor Relationship Specialty Start Date End Date Jonel Forrester MD [address] [place] [address] PCP - General Internal Medicine 01/23/14 documented as of this encounter
--- OUTSIDE RECORDS SUMMARY | 2024-09-21 14:02 | XMS_ITS | Encounter Summary ---
Author Organization [employer] Address 75 [facility] 7t [place] [address] Care Team Providers Care Glove Parts Cutter Name Role Phone Jonel Forrester MD Primary Care Provider [phone] Encounter Details Date Type Department Care Team (Late st Contact Info) Description 08/22/2024 Orders Only [facility] CHC MED & PEDS [address] [place], [place] [phone] Jonel Forrester MD 505 [place] [address] Thrombocytopenia ([facility]) (Primary Dx) Social History Tobacco Use Types [...] Creatinine, Serum 0.88 0.5 - 1.4 mg/dL [facility] Estimated Glomerular Filt Rate >60 [facility] Comment:Chronic Kidney Disea se: Estimated GFR < 60 mL/min/1.54b2Wyfewg Kidney Disease: Estimated GFR < 15 mL/min/1.73m2 Blood Venous blood specimen / Unknown 09/07/2024 11:09 AM EST 09/07/2024 11:09 AM EST us Jonel Forrester MD LAB BLOOD ORDERABLES Final Result [facility] [address] [place] [phone] * (ABNORMAL) BUN (Blood Urea Nitrogen) (09/07/2024 11:09 AM EST) Urea Nitrogen (BUN) 18(H) 9 - 16 mg/dL [facility] Blood Venous blood specimen / Unknown 09/07/2024 11:09 AM EST 09/07/2024 11:09 AM EST Jonel Forrester MD LAB BLOOD ORDERABLES Final Result [facility] [address] [place] [address] [phone] documented in this encounter Visit Diagnoses Diagnosis Thrombocytopenia (CMS/HCC)- Primary Unspecified thrombocytopenia documented in this encounter Additional Health Concerns Assessment Noted Time PHQ-9 Depression Total Score: 0 08/12/20 22 2:31 PM EST documented as of this encounter Care Teams Glove Parts Cutter Relationship Specialty Start Date End Date Jonel Forrester MD [address] [place] [address] PCP - General Internal Medicine 01/23/14 documented as of this encounter
--- OUTSIDE RECORDS SUMMARY | 2024-09-21 14:02 | XMS_ITS | Encounter Summary ---
Author Organization [employer] Address 75 [facility] 7t [place] [address] Care Team Providers Care Material Stress Tester Name Role Phone Jonel Forrester MD Primary Care Provider [phone] Encounter Details Date Type Department Care Team (Late st Contact Info) Description 08/26/2024 Refill C [facility]S [address] [place], [place] [phone] Jonel Forrester MD [address] [place] [address] Thrombocytopenia ([facility]) Social History Tobacco Use Types Packs/Day Years [...] to be sent to [id number] [address] documented in this encounter Plan of Treatment Not on file documented as of this encounter Visit Diagnoses Diagnosis Thrombocytopenia (CMS/HCC) Unspecified thrombocytopenia documented in this encounter Additional Health Concerns Assessment Noted Time PHQ-9 Depression Total Score: 0 08/12/20 22 2:31 PM EST documented as of this encounter Care Teams Material Stress Tester Relationship Specialty Start Date End Date Jonel Forrester MD [address] [place] [address] PCP - General Internal Medicine 01/23/14 documented as of this encounter
--- OUTSIDE RECORDS SUMMARY | 2024-09-21 14:02 | XMS_ITS | Encounter Summary ---
Author Organization [employer] Address 75 [facility] 7t [place] [address] Care Team Providers Care Call Center Support Representative Name Role Phone Jonel Forrester MD Primary Care Provider [phone] Encounter Details Date Type Department Care Team (Late st Contact Info) Description 06/11/2023 Abstract [facility] MEDICINE [address] [place] [address] Jonel Forrester MD [address] [place] [address] Social History Tobacco Use Types Packs/Day Years [...] documented as of this encounter Care Teams Call Center Support Representative Relationship Specialty Start Date End Date Jonel Forrester MD [address] [place] [address] PCP - General Internal Medicine 01/23/14 documented as of this encounter
--- OUTSIDE RECORDS SUMMARY | 2024-09-21 14:02 | XMS_ITS | Encounter Summary ---
Author Organization [employer] Address 75 [facility] 7t [place] [address] Care Team Providers Care Cuff Turner Name Role Phone Jonel Forrester MD Primary Care Provider [phone] Encounter Details Date Type Department Care Team (Late st Contact Info) Description 06/06/2024 Orders Only [facility] CHC MED & PEDS [address] [place], [place] [phone] Jonel Forrester MD [address] [place] [address] Social History Tobacco Use Types Packs/Day Years [...] documented as of this encounter Care Teams Cuff Turner Relationship Specialty Start Date End Date Jonel Forrester MD [address] [place] [address] PCP - General Internal Medicine 01/23/14 documented as of this encounter
--- OUTSIDE RECORDS SUMMARY | 2024-09-21 14:02 | XMS_ITS | Encounter Summary ---
Author Organization [employer] Address 75 [facility] 7 [place] [address] Care Team Providers Care Potato Grader Name Role Phone Jonel Forrester MD Primary Care Provider [phone] Reason for Visit * Reason Comments Med Refill Encounter Details Date Type Department Care Team ([facility] Contact Info) Description 04/06/2023 Refill [facility] CHC MED & PEDS [address] [place] [address] Jonel Forrester MD [address] [place] [address] Oral thrush Social History Tobacco Use Types [...] documented as of this encounter Care Teams Potato Grader Relationship Specialty Start Date End Date Jonel Forrester MD [address] [place] [address] PCP - General Internal Medicine 01/23/14 documented as of this encounter
--- OUTSIDE RECORDS SUMMARY | 2024-09-21 14:02 | XMS_ITS | Encounter Summary ---
Author Organization [employer] Address 75 [facility] 7t [place] [address] Care Team Providers Care Project Engineer Name Role Phone Jonel Forrester MD Primary Care Provider [phone] Reason for Visit * Reason Onset Date Comments Referral 07/26/2024 Encounter Details Date Type Department Care Team ([facility] st Contact Info) Description 07/26/2024 Telephone [facility] MEDICINE [address] [place] [address] Jonel Forrester MD [address] [place] [address] Referral Social History Tobacco Use Types Packs/Day [...] ask PCP a new order. Callback number [phone] documented in this encounter Plan of Treatment Not on file documented as of this encounter Visit Diagnoses Not on filedocumented in this encounter Additional Health Concerns Assessment Noted Time PHQ-9 Depression Total Score: 0 08/12/20 22 2:31 PM EST documented as of this encounter Care Teams Project Engineer Relationship Specialty Start Date End Date Jonel Forrester MD [address] [place] [address] PCP - General Internal Medicine 01/23/14 documented as of this encounter
--- OUTSIDE RECORDS SUMMARY | 2024-09-21 14:02 | XMS_ITS | Encounter Summary ---
Author Organization [employer] Address 75 [facility] 7t [place] [address] Care Team Providers Care French Cord Binder Name Role Phone Jonel Forrester MD Primary Care Provider [phone] Reason for Visit * Reason Onset Date Comments Med Refill 07/01/2023 Encounter Details Date Type Department Care Team ([facility] st Contact Info) Description 07/01/2023 Telephone [facility] MEDICINE [address] [place] [address] Jonel Forrester MD [address] [place] [address] Med Refill Social History Tobacco Use Types [...] documented as of this encounter Care Teams French Cord Binder Relationship Specialty Start Date End Date Jonel Forrester MD [address] [place] [address] PCP - General Internal Medicine 01/23/14 documented as of this encounter
--- OUTSIDE RECORDS SUMMARY | 2024-09-21 14:02 | XMS_ITS | Encounter Summary ---
Author Organization [employer] Address 75 [facility] 7 [place] [address] Care Team Providers Care Bench Worker Apprentice Name Role Phone Jonel Forrester MD Primary Care Provider [phone] Reason for Visit * Reason Onset Date Comments Nurse Triage 08/29/2024 Encounter Details Date Type Department Care Team ([facility] st Contact Info) Description 08/29/2024 Telephone [facility] CHC MED & PEDS [address] [place] [address] Jonel Forrester MD 505 [place] [address] Nurse Triage Social History Tobacco Use Types [...] - 08/29/2024 3:55 PM EST TC to [facility]-needs to be NPO by 0600. TC to [facility]- no fasting needed prior to labs. [...] eyes and is concern . Patient speaks Bruneian. Advised triage nurse will call patient back. documented in this encounter Plan of Treatment Not on file documented as of this encounter Visit Diagnoses Not on filedocumented in this encounter Additional Health Concerns Assessment Noted Time PHQ-9 Depression Total Score: 0 08/12/20 22 2:31 PM EST documented as of this encounter Care Teams Bench Worker Apprentice Relationship Specialty Start Date End Date Jonel Forrester MD [address] [place] [address] PCP - General Internal Medicine 01/23/14 documented as of this encounter
--- OUTSIDE RECORDS SUMMARY | 2024-09-21 14:02 | XMS_ITS | Encounter Summary ---
Author Organization [employer] Address [address] [facility] 7 [place] [address] Care Team Providers Care Site Director Name Role Phone Jonel Forrester MD Primary Care Provider [phone] Reason for Referral * Imaging (Routine) - Closed Specialty Diagnoses / Procedures Referred By Alex soares Referred To Contact Radiology Diagnoses Steatocystoma Procedures CT Abdomen Pelvis w/ Contrast Jonel Forrester MD [address] [place] [address] Phone: tel: fax: [address] Phone: tel: fax: Referral ID Status Reason Start Date Expiration Date Visits Re quested Visits Authorized [id number] Closed 07/29/2024 07/29/2025 1 1 Encounter Details Date Type Department Care Team (Late st Contact Info) Description 07/29/2024 Orders Only [facility] PEDS [address] [place] [address] Jonel Forrester MD [address] [place] [address] Steatocystoma (Primary Dx) Social History Tobacco Use Types [...] AM EDT documented as of this encounter Progress Notes * Jonel Forrester MD - 07/29/2024 1:13 PM EST The new order for the CT abdomen and pelvis was placed as requested by radiology * Chrissy Beaver RN - 07/29/2024 1:13 PM EST TC to patient to review CT results. Spoke with of patient with patient verbal permission. Wifestates patient is having abdominal pain. Recommended to go to walk-in clinic, or ER for treatment. insitant that patient see Dr. Forrester for evaluation. RN explained to that there were no appointment available until next week. states she would like to schedule appointment 09/21/24. advised if patient pain increased, then to go to ER. stated understanding and agrees with plan. documented in this encounter Miscellaneous Notes * Result Encounter Note - Jonel Forrester MD - 07/29/2024 1:13 PM EST Please call. The CT scan of the abdomen was reviewed and shows: Pancreatitis, abdominal wall thickening but no clear collection of fluid. Please find out if patients have abdominal pain. If he is in pain he should be treated for his pancreatitis. documented in this encounter Plan of Treatment Not on file documented as of this encounter Procedures Procedure Name Priority Date/Time Associated Diagnosis Comments CT ABDOMEN PELVIS W CONTRAST Routine 09/13/2024 9:07 PM EST Steatocystoma XR CHEST 2 VIEWS Routine 08/15/2024 11:1 9 AM EST documented in this encounter Results * CT Abdomen Pelvis w/ Contrast (09/13/2024 9:07 PM EST) Anatomical Region Laterality Modality Body, Pelvis, Abdomen Computed T omography 09/13/2024 9:07 PM EST Narrative 09/13/2024 9:09 PM EST ? [facility] ?[address] ?[place] [address] ? CT Scan Report ? Signed ? Patient: Maximino,Talon ?MR#: [id number] ?? [id number] ? : 1965 ?Acct:[id number] ? Age/Sex: 59 / M ?ADM Date: /28/25 ? Loc: HO.CT ? Attending Dr: Jonel Forrester MD ? Ordering Physician: Jonel Forrester MD ?? Date of Service: 09/13/24 ?? Procedure(s): CT abdomen pelvis w IV con ?? Accession Number(s): [id number] ? cc: Jonel Forrester MD ? Report Number: ?? [id number]: Total DLP = ??714.00 mGy-cm ? CLINICAL HISTORY: Induration with erythema of the abdominal wall around the umbilicus ? CT abdomen and pelvis with contrast ? Comparison: None ? Findings: ? Small right pleural effusion with lower lobe atelectasis. ?? Right middle lobe and left lingular subsegmental atelectasis. ?? No acute bony abnormalities. ? Central abdominal wall skin thickening noted. ?? No subcutaneous fluid collection noted. ?? Physical exam correlation would be needed. ? Peripancreatic inflammatory stranding noted. ?? No focal pancreatic abnormality identified. ?? Findings are consistent with acute pancreatitis. ?? No free air or fluid collection. ?? Minimal ascites in abdomen and pelvis. ? Duodenal wall thickening noted. ?? This appears to be secondary to pancreatic abnormalities. ? Liver, spleen and adrenal glands unremarkable. ?? Gallbladder is within normal limits. ? Bilateral kidneys demonstrate no focal abnormality. ?? No renal stones or hydronephrosis. ? Abdominal aorta is normal in caliber. ? No significant adenopathy in the pelvis. ?? No acute diverticulitis. Appendix unremarkable. ? Impression: ? Right pleural effusion with multifocal basilar atelectasis ? Acute pancreatitis without focal abnormality ? Minimal ascites ? Central abdominal wall skin thickening ? This document has been electronically signed by: Cameron Pandya MD on ?? 09/13/2024 21:07:39 ? Dictated By: ?Cameron Pandya MD ? Signed By: ?<Electronically signed by Cameron Pandya MD in OV> ? 09/13/242108 ? DD/ 06 ? TD/TT: 09/13/242106 ? Skip Miner Blasting: ? Procedure Note Fab, Image - 09/13/[address] [address] [address] Scan Report Signed Patient: Megan Stanton#: [id number] : 1965Acct:[id number] Age/Sex: 59 / MADM Date: 09/13/24 Loc: HO.CT Attending Dr: Jonel Forrester MD Ordering Physician: Jonel Forrester MD Date of Service: 09/13/24 Procedure(s): CT abdomen pelvis w IV con Accession Number(s): [id number] cc: Jonel Forrester MD Report Number: [id number]: Total DLP = 714.00 mGy-cm CLINICAL HISTORY: Induration with erythema of the abdominal wall aroundthe umbilicus CT abdomen and pelvis with contrast Comparison: None Findings: Small right pleural effusion with lower lobe atelectasis. Right middle lobe and left lingular subsegmental atelectasis. No acute bony abnormalities. Central abdominal wall skin thickening noted. No subcutaneous fluid collection noted. Physical exam correlation would be needed. Peripancreatic inflammatory stranding noted. No focal pancreatic abnormality identified. Findings are consistent with acute pancreatitis. No free air or fluid collection. Minimal ascites in abdomen and pelvis. Duodenal wall thickening noted. This appears to be secondary to pancreatic abnormalities. Liver, spleen and adrenal glands unremarkable. Gallbladder is within normal limits. Bilateral kidneys demonstrate no focal abnormality. No renal stones or hydronephrosis. Abdominal aorta is normal in caliber. No significant adenopathy in the pelvis. No acute diverticulitis. Appendix unremarkable. Impression: Right pleural effusion with multifocal basilar atelectasis Acute pancreatitis without focal abnormality Minimal ascites Central abdominal wall skin thickening This document has been electronically signed by: Cameron Pandya MD on 09/13/2024 21:07:39 Dictated By: Cameron Pandya MD Signed By: <Electronically signed by Cameron Pandya MD in OV> 09/13/242108 DD/ 06 TD/TT: 09/13/242106 Skip Miner Blasting: us Jonel Forrester MD IMG CT PROCEDURES Final Res ult * XR Chest 2 Views (08/15/2024 11:19 AM EST) Anatomical Region Laterality Modality Chest Radiographic Angelique ging 08/15/2024 11:1 9 AM EST Narrative 08/15/2024 2:27 PM EST ? [facility] ?[address] ?[place] [address] ?XRay Report ? Signed ? Patient: Maximino,Talon ?MR#: [id number] ?? [id number] ? : 1965 ?Acct:[id number] ? Age/Sex: 59 / M ?ADM Date: 08/15/24 ? Loc: HO.XRAY ? Attending Dr: Ingrid Wahl MUSIC PROFESSOR ? Ordering Physician: Ingrid Wahl NP ?? Date of Service: 08/15/24 ?? Procedure(s): XR chest 2V ?? Accession Number(s): [id number] ? cc: Jonel Forrester MD; Ingrid Wahl [...] DD/ 1119 ? TD/TT: 08/15/24 1125 ? Skip Miner Blasting: MSM ? Procedure Note Fab, Image - 08/15/[address] [address] XRay Report Signed Patient: Megan Stanton#: [id number] : 1965Acct:[id number] Age/Sex: 59 / MADM Date: 08/15/24 Loc: [facility] Attending Dr: Ingrid Wahl MUSIC PROFESSOR Ordering Physician: Ingrid Wahl NP Date of Service: 08/15/24 Procedure(s): XR chest 2V Accession Number(s): [id number] cc: Jonel Forrester MD; Ingrid Wahl NP [...] 08/15/24 1424 DD/ 1119 TD/TT: 08/15/24 1125 Skip Miner Blasting: GERONIMO [facility] External Provider IMG XR PROCEDURES Final Result documented in this encounter Visit Diagnoses Diagnosis Steatocystoma- Primary Sebaceous cyst documented in this encounter Additional Health Concerns Assessment Noted Time PHQ-9 Depression Total Score: 0 08/12/20 22 2:31 PM EST documented as of this encounter Care Teams Site Director Relationship Specialty Start Date End Date Jonel Forrester MD [address] [place] [address] PCP - General Internal Medicine 01/23/14 documented as of this encounter
--- OUTSIDE RECORDS SUMMARY | 2024-09-21 14:02 | XMS_ITS | Encounter Summary ---
Author Organization [employer] [facility] Address [address] [place] [address] [address] [place] [address] Care Team Providers Care Ocean Export Agent Name Role Phone Jonel Forrester MD Primary Care Provider [phone] Reason for Referral * Imaging (Routine) - Pending Review Specialty Diagnoses / Procedures Referred By Contac t Referred To Contact Radiology Diagnoses Other headache syndrome Procedures CT Head w/o Contrast Jonel Forrester MD [address] [place] [address] Phone: tel: fax: [address] Phone: tel: fax: Referral ID Status Reason Start Date Expiration Date V isits Requested Visits Authorized [id number] Pending Review 09/21/2024 09/21/2025 1 1 Encounter Details Date Type Department Care Team (Late st Contact Info) Description 09/21/2024 11:15 AM EST Office Visit [facility] MED [facility] PEDS [address] [place], [place] [phone] Jonel Forrester MD [address] [place] [phone] Epigastric pain (Primary Dx); Other acute pancreatitis without infection or necrosis; Other headache syndrome; Bronchitis; Nasal congestion Social History Tobacco Use Types Packs/Day Years [...] AM EDT documented as of this encounter Last Filed Vital Signs Vital Sign Reading Time Taken Comments Blood Pressure 123/80 09/21/2024 11:30 AM EST Pulse 86 09/21/2024 11:30 AM EST Temperature 36.5 ??C (97.7 ??F) 09/21/2024 11:[address] Respiratory Rate 20 09/21/2024 11:30 AM EST Oxygen Saturation 95% 09/21/2024 11:30 AM EST Inhaled Oxygen Concentration - - Weight 102 kg (224 lb) 09/21/2024 11:30 AM EST Height 188 cm (6' 2 ) 09/21/2024 11:30 AM EST Body Mass Index 28.76 09/21/2024 11:30 AM EST documented in this encounter Plan of Treatment Scheduled Orders Name Type Priority Associated Diagnoses Orde r Schedule Amylase Lab Routine Epigastric pain Expected: 09/21/2024 (Approximate), Expires: 09/21/2025 Lipase Lab Routine Epigastric pain Expected: 09/21/2024, Expires: 09/21/2025 CBC auto differential Lab Routine Epigastric pain Expected: 09/21/2024 (Approximate), Expires: 09/21/2025 CT Head w/o Contrast Imaging Routine Other headache syndrome Expected: 09/21/2024, Expires: 09/21/2025 documented as of this encounter Visit Diagnoses Diagnosis Epigastric pain- Primary Abdominal pain, epigastric Other acute pancreatitis without infection or necrosis Other headache syndrome Bronchitis Bronchitis, not specified as acute or chronic Nasal congestion Other diseases of nasal cavity and sinuses documented in this encounter Additional Health Concerns Assessment Noted Time PHQ-9 Depression Total Score: 0 08/12/20 22 2:31 PM EST documented as of this encounter Care Teams Ocean Export Agent Relationship Specialty Start Date End Date Jonel Forrester MD [address] [place] [address] PCP - General Internal Medicine 01/23/14 documented as of this encounter
--- OUTSIDE RECORDS SUMMARY | 2024-09-21 14:02 | XMS_ITS | Encounter Summary ---
Author Organization [employer] Address [address] [facility] 7[address] [place] [address] Care Team Providers Care Senior Java Software Engineer Name Role Phone Jonel Forrester MD Primary Care Provider [phone] Encounter Details Date Type Department Care Team (Late st Contact Info) Description 09/11/2022 Orders Only [facility] MEDICINE [address] [place] [address] Jonel Forrester MD [address] [place] [address] Hemoptysis (Primary Dx); Pneumonia of both lungs [...] documented as of this encounter Care Teams Senior Java Software Engineer Relationship Specialty Start Date End Date Jonel Forrester MD [address] [place] [address] PCP - General Internal Medicine 01/23/14 documented as of this encounter
--- OUTSIDE RECORDS SUMMARY | 2024-09-21 14:02 | XMS_ITS | Encounter Summary ---
Author Organization [employer] Address [address] [facility] 7[address] [place] [address] Care Team Providers Care Commercial Light Fixture Assembler Name Role Phone Jonel Forrester MD Primary Care Provider [phone] Encounter Details Date Type Department Care Team (Latest Contact Info) Description 09/21/2024 Travel Social History Tobacco Use Types Packs/Day Years [...] documented as of this encounter Care Teams Commercial Light Fixture Assembler Relationship Specialty Start Date End Date Jonel Forrester MD [address] [place] [phone] PCP - General Internal Medicine 01/23/14 documented as of this encounter
--- OUTSIDE RECORDS SUMMARY | 2024-09-21 14:02 | XMS_ITS | Clinical Summary ---
Author Organization [employer] Address [address] [place] [address] 7t [place] [address] Care Team Providers Care Skiver Box Toe Name Role Phone Jonel Forrester MD Primary Care Provider +1- [phone] Allergies No known active allergies Medications ipratropium-a [...] syringes subcutaneously every 4 weeks 024 Active fluticasone (Flonase) 50 MCG/ACT nasal sprayIndicati ons:Nasal congestion Administer 1-2 sprays into each nostril Once per day. Shake gently. Before first use, prime pump. After use, clean tip and replace cap. 16 g 11 025 2025 Active barium sulfate (Readi-Cat 2) 2 % suspensionInd [...] (07/05/2024 4:58 PM EST): To follow-up with [facility] allergy as scheduled. No acute intervention done today. 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 Encounters Date Type Department Care Team Description 09/21/2024 11:15 AM EST Office Visit [facility] [address] [place], [place] [phone] Jonel Forrester MD Epigastric pain (Primary Dx); Other acute pancreatitis without infection or necrosis; Other headache syndrome; Bronchitis; Nasal congestion 09/21/2024 Travel 08/29/2024 Telephone [facility] [address] [place], [place] [phone] Jonel Forrester MD Nurse Triage 08/26/2024 Refill [facility] [address] [place], [place] [phone] Jonel Forrester MD Thrombocytopenia (CMS/HCC) 08/25/2024 Telephone [facility] [address] [place] [phone] Jonel Forrester MD callback requested 08/22/2024 Orders Only [facility] [address] [place] [address] Jonel Forrester MD Thrombocytopenia (CMS/HCC) (Primary Dx) 08/19/2024 Telephone [facility] [address] [place] [address] Jonel Forrester MD Call Back Request 07/29/2024 Orders Only [facility] [address] [place] [address] Jonel Forrester MD Steatocystoma (Primary Dx) 07/26/2024 Telephone [facility] [address] [place] [address] Jonel Forrester MD Referral 07/26/2024 Telephone [facility] [address] [place] [address] ABDOMEN 07/25/2024 Telephone [facility] [address] [place] [phone] Jonel Forrester MD Referral; CT scan order 07/12/2024 10:30 AM EST Office Visit [facility] [address] [place] [phone] Jonel Forrester MD Porokeratosis (Primary Dx); Steatocystoma; Erythema 07/12/2024 Travel 07/05/2024 3:30 PM EST Office Visit [facility] [address] [place] [address] Jonel Forrester MD Nail dystrophy (Primary Dx); Hypogammaglobulinemia ([facility]); Skin pustule 07/05/2024 Travel 06/28/2024 Patient Outreach [facility] [address] [place] [phone] Jonel Forrester MD Pre-visit Planning ([facility] unable to reach [facility]) from Last 3 Months Immunizations Name Administration [...] Mass Index 28.76 09/21/2024 11:30 AM EST Plan of Treatment Health Maintenance Due Date Last Done Comments CT Colonography 1965 FIT DNA/Cologuard 1965 FIT 1965 FOBT 1965 Sigmoidoscopy 1965 COVID-19 Vaccine (#1) 02/24/1969 Alcohol/Substance Use Screening 1976 Hepatitis A Vaccines (1 of 2 - Risk 2-dose series) 02/24/1983 Zoster Vaccines (1 of 2) 02/24/1983 Pneumococcal Vaccine: 50+ Years (2 of 2 - PCV) 06/05/2014 06/05/2013 Colonoscopy 06/13/2019 06/13/2014 Colorectal Cancer Screening 06/13/2019 Depression Screening 08/12/2023 08/12/2022, 08/12/2022 SDOH Screening 11/25/2023 11/24/2022 Hepatitis B Vaccines (1 of 3 - Risk 3-dose series) 2024 RSV Patients and Patients Aged 60 years or older (1 - Risk 60-74 years 1-dose series) 2024 Influenza Vaccine (#1) 2024 Tobacco Screening 07/12/2025 07/12/2024 Lipid Panel 08/24/2028 08/24/2023, 09/24/2021, 03/26/2021 DTaP/Tdap/Td Vaccines (3 - T d or Tdap) 09/02/2034 09/02/2024, 02/22/2008 HIV Screening Completed 01/14/2023 Hepatitis C Screening [...] CONTRAST Routine 09/13/2024 9:07 PM EST Steatocystoma CREATININE, SERUM Routine 09/07/2024 11: 09 AM [...] Recently Relevant to Health Maintenance Results * CT Abdomen Pelvis w/ Contrast (09/13/2024 9:07 PM EST) Anatomical Region Laterality Modality Body, Pelvis, Abdomen Computed T omography 09/13/2024 9:07 PM EST Narrative 09/13/2024 9:09 PM EST ? [facility] ?[address] ?[place] [address] ? CT Scan Report ? Signed ? Patient: Maximino,Talon ?MR#: [id number] ?? [id number] ? : 1965 ?Acct:[id number] ? Age/Sex: 59 / M ?ADM Date: 01/28/25 ? Loc: HO.CT ? Attending : Jonel Forrester MD ? Ordering Physician: Jonel Forrester MD ?? Date of Service: 09/13/24 ?? Procedure(s): CT abdomen pelvis w IV con ?? Accession Number(s): [id number] ? cc: Jonel Forrester MD ? Report Number: ?? [id number]: Total DLP = ??714.00 mGy-cm ? CLINICAL [...] ? DD/ 06 ? TD/TT: 09/13/242106 ? Radial Arm Saw Operator: ? Procedure Note Fab, Image - 09/13/[address] [address] [address] Scan Report Signed Patient: Megan Stanton#: [id number] : 1965Acct:[id number] Age/Sex: 59 / MADM Date: 09/13/24 Loc: HO.CT Attending Dr: Jonel Forrester MD Ordering Physician: Jonel Forrester MD Date of Service: 09/13/24 Procedure(s): CT abdomen pelvis w IV con Accession Number(s): [id number] cc: Jonel Forrester MD Report Number: [id number]: Total DLP = 714.00 mGy-cm CLINICAL HISTORY: [...] in OV> 09/13/242108 DD/ 06 TD/TT: 09/13/242106 Radial Arm Saw Operator: us Jonel Forrester MD IMG CT PROCEDURES Final Res ult * Creatinine, Serum (09/07/2024 11:09 AM EST) Creatinine, Serum 0.88 0.5 - 1.4 mg/dL [facility] Estimated Glomerular Filt Rate >60 [facility] Comment:Chronic Kidney Disea se: Estimated GFR < 60 mL/min/1.32d0Ivzkjr Kidney Disease: Estimated GFR < 15 mL/min/1.73m2 Blood Venous blood specimen / Unknown 09/07/2024 11:09 AM EST 09/07/2024 11:09 AM EST us Jonel Forrester MD LAB BLOOD ORDERABLES Final Result Performing Organization Address [facility]/[employer] de Phone Number [facility] [address] [place] [address] [phone] * (ABNORMAL) BUN (Blood Urea Nitrogen) (09/07/2024 11:09 AM EST) Urea Nitrogen (BUN) 18(H) 9 - 16 mg/dL [facility] Blood Venous blood specimen / Unknown 09/07/2024 11:09 AM EST 09/07/2024 11:09 AM EST us Jonel Forrester MD LAB BLOOD ORDERABLES Final Result Performing Organization Address [facility]/[employer] Co de Phone Number [facility] [address] [place] [phone] * XR Chest 2 Views (08/15/2024 11:19 AM EST) Anatomical Region Laterality Modality Chest Radiographic Angelique ging 08/15/2024 11:1 9 AM EST Narrative 08/15/2024 2:27 PM EST ? [facility] ?[address] ?[place] [address] ?XRay Report ? Signed ? Patient: Maximino,Talon ?MR#: [id number] ?? [id number] ? : 1965 ?Acct:[id number] ? Age/Sex: 59 / M ?ADM Date: 12/30/24 ? Loc: HO.XRAY ? Attending : Ingrid Wahl DAIRY FROZEN MANAGER ? Ordering Physician: Ingrid Wahl DAIRY FROZEN MANAGER ?? Date of Service: 08/15/24 ?? Procedure(s): XR chest 2V ?? Accession Number(s): [id number] ? cc: Jonel Forrester MD; Ingrid Wahl DAIRY FROZEN MANAGER ? EXAMINATION: ?? XR CHEST ? CLINICAL [...] DD/ 1119 ? TD/TT: 08/15/24 1125 ? Radial Arm Saw Operator: MSM ? Procedure Note Carole Sanon - 08/15/[address] [address] XRay Report Signed Patient: Megan Stanton#: [id number] : 1965Acct:[id number] Age/Sex: 59 / MADM Date: 08/15/24 Loc: [facility] Attending Dr: Ingrid Wahl DAIRY FROZEN MANAGER Ordering Physician: Ingrid Wahl NP Date of Service: 08/15/24 Procedure(s): XR chest 2V Accession Number(s): [id number] cc: Jonel Forrester MD; Ingrid Wahl NP [...] 08/15/24 1424 DD/ 1119 TD/TT: 08/15/24 1125 Radial Arm Saw Operator: GERONIMO us [facility] External Provider IMG XR PROCEDURES Final Result * Shave removal (07/12/2024 2:51 PM EST) Jonel Grider MD - 07/12/2024 2:51 PM EST Jonel Forrester MD ? 07/12/2024 ??2:55 PM Shave removal Date/Time: 07/12/2024 2:51 PM Performed by: Jonel Forrester MD Authorized by: Jonel Forrester MD ?? Consent: ??Consent obtained: ??Verbal ??Risks discussed: ??Bleeding, infection, pain and poor cosmetic result ??Alternatives discussed: ??Observation [facility] protocol: ??Procedure explained and questions answered to [...] 10:22 AM EST) Triglycerides 88 <150 mg/dL [facility] Comment:Desirable Triglyceri de: less than 150 mg/dLBorderline High Triglyceride 150-199 mg/dLHigh Triglyceride: 200-499 mg/dLVery High Triglyceride: greater than or equal to 5OO mg/dL Cholesterol 204(H) <200 mg/dL [facility] Comment:Desirable Cholestero l: less than 200 mg/dLBorderline High Cholesterol: 200-239 mg/dLHigh Cholesterol: greater than 239 mg/dL LDL Cholesterol Calculated 137(H) <100 mg/dL [facility] Comment:Desirable LDL: less than 100 mg/dLNear Optimal/Above Optimal LDL: 110- 129 mg/dLBorderline High LDL: 130-159 mg/dLHigh LDL: 160-189 mg/dLVery High LDL: greater than or equal to 190 mg/dL HDL Cholesterol 50 >40 mg/dL [facility] Comment:Desirable HDL: great er than 40 mg/dL Note: This HDL assay may give artificially low results in patients with liver disease. Blood Venous blood specimen / Unknown 08/24/2023 10:22 AM EST 08/24/2023 10:22 AM EST Jonel Forrester MD LAB BLOOD ORDERABLES Final Result Performing Organization Address City/[facility]/ZIP Co de Phone Number [facility] [address] [place] [phone] * Hepatitis C Ab (01/14/2023 3:47 PM EDT) Hepatitis C Antibody Nonreactive Nonreactive [facility] Comment:Antibodies to HCV no t detected; does not exclude early acuteHCV infection. 01/14/2023 3:47 PM EDT 01/14/2023 3:48 PM EDT [facility] External Provider LAB BLO OD ORDERABLES Final Result [facility] [address] [place] [phone] [phone] * HIV Ab/Ag (KRUNAL LOPEZ) (01/14/2023 3:47 PM EDT) Pathologist [facility] HIV AB/AG Nonreactive Nonreactive [facility] Comment:HIV-1 p24 Ag and/or HIV-1/HIV-2 Ab not detected.A test result that is nonreactive does not exclude thepossibility of exposure to or infection with HIV-1 and/orHIV-2. Nonreactive results in this assay for individualswith prior exposure to HIV-1 and/or HIV-2 may be due toantigen and antibody levels that are below the limit ofdetection of this assay.The [employer] Propeller Engineer HIV Ag/Ab Combo assay result andsupplemental assay results should be interpreted inconjunction with the patient's clinical presentation,history and other laboratory results. If the results areinconsistent with clinical evidence, additional testing issuggested to confirm the result. 01/14/2023 3:47 PM EDT 01/14/2023 3:48 PM EDT [facility] External Provider LAB BLO OD ORDERABLES Final Result [facility] [address] [place] [phone] [phone] * Hm Colonoscopy (06/13/2014) Pathologist [facility] Colonoscopy Normal Normal Historical Provider HEALTH MAINTENANCE Final Result from Last 3 Months or Most Recently Relevant to Health Maintenance Insurance [facility] , [address] [place] [address] Care Teams Skiver Box Toe Relationship Specialty Start Date End Date Jonel Forrester MD [address] [place] [phone] PCP - General Internal Medicine 01/23/14
--- OUTSIDE RECORDS SUMMARY | 2024-09-21 14:02 | XMS_ITS | Encounter Summary ---
Author Organization [facility] Address [address] [place] [address] Care Team Providers Care Metal Flooring Installer Name Role Phone Jonel Forrester Primary Care Provider Encounter Details Date Type Department Care Team ([facility] Contact Info) Description 09/08/2022 Telephone [facility] Patient Access Center [address] [place] [address] Telephone Intake, Staff Social History Tobacco Use [...] on filedocumented in this encounter Care Teams Metal Flooring Installer Relationship Specialty Start Date End Date Jonel Forrester [address] [place] [address] PCP - General 03/05/17 documented as of this encounter
--- OUTSIDE RECORDS SUMMARY | 2024-09-21 14:02 | XMS_ITS | Referral Summary ---
Author Organization [facility] Address [address] [place] [address] Care Team Providers Care Budget Analyst Name Role Phone Jonel Forrester Primary Care Provider + [phone] Allergies No known active allergies Medications ferrous [...] Not on file Procedures * Due to [place] [employer] law, this organization might not be sharing negative HIV tests. Procedure Name Priority Date/Time Associated Diagnosis Comments CT CHEST W CONTRAST Routine 06/12/2017 5 :07 PM EDT Cough Lymphadenopathy Hepatomegaly HEPATITIS C ANTIBODY W/REFLEX TO HCV RNA, QUANTITATIVE PCR Routine 01/26/2017 9:57 AM EDT from Last 3 Months or Most Recently Relevant to Health Maintenance Results * Due to [place] [employer] law, this organization might not be sharing [...] not known, consider bronchoscopy for further evaluation. [id number] Narrative 06/15/2017 2:[address] CHEST [...] the prior chest CT without change 139. Dbfoosgmt-qr-ejj opacities are seen in the right middle lobe and right lowerlobe that were present in the prior exam and slightly more prominent inthe right upper lobe posteriorly compared to prior exam. Some of thepatchy nodules of the right upper lobe have resolved. Minimal ogqt-ug-ewnoffgjanxg are seen in the left upper lobe [...] is no significant interval change in the ajdo-ln-ppfjcumvbvsk from end bronchial inflammation/bronchiolitis as congested inthe prior study. No consolidation or pleural effusion is noted. There isalso no change in the mild bronchiectasis of the lower lobes. If etiologyof the bronchiolitis/inflammation is not known, consider bronchoscopy forfurther evaluation. [id number] Wan Lee MD IMG CT PROCEDURES Final Result * Hepatitis C Antibody w/Reflex to HCV RNA, Quantitative PCR (01/26/2017 9:57 AM EDT) Hepatitis C Antibody NON-REACTI VE NON-REACT [facility] Signal To Cut-Off 0.01 <1.00 [facility] 01/26/2017 9:57 AM EDT 01/26/2017 10:39 AM EDT Renee Moore IP ARCHITECT LAB BLOOD ORDERABLES Final Result JULIA AGUIRRE [address] [facility] 3rd Floor, [place] [address], [place] [phone] from Last 3 Months or Most Recently Relevant to Health Maintenance Insurance HSNO/FREE CARE Advance Directives Documents on File Type Date Recorded Patient Steak Tenderizer Machine Expl [facility] Care Proxy 05/29/2017 10:55 AM Care Teams Budget Analyst Relationship Specialty Start Date End Date Jonel Forrester [address] [place] [phone] PCP - General 03/05/17
--- OUTSIDE RECORDS SUMMARY | 2024-09-21 14:02 | XMS_ITS | Encounter Summary ---
Author Organization [employer] Address [address] [facility] 7t [place] [address] Care Team Providers Care Pet Nutrition Specialist Name Role Phone Jonel Forrester MD Primary Care Provider +1 [phone] Encounter Details Date Type Department Care Team (Late st Contact Info) Description 08/04/2022 Orders Only [facility] [address] [place], [place] [phone] Jonel Forrester MD [address] [place] [address] Social History Tobacco Use Types Packs/Day Years [...] on filedocumented in this encounter Care Teams Pet Nutrition Specialist Relationship Specialty Start Date End Date Jonel Forrester MD [address] [place] [address] PCP - General Internal Medicine 01/23/14 documented as of this encounter
--- OUTSIDE RECORDS SUMMARY | 2024-09-21 14:02 | XMS_ITS | Clinical Summary ---
Author Organization [facility] Address [address] [place] [address] Care Team Providers Care Theatre Program Director Name Role Phone Jonel Forrester Primary Care Provider + [phone] Allergies No known active allergies Medications ferrous [...] complete this topic Procedures * Due to [place] [employer] law, this organization might not be sharing negative HIV tests. Procedure Name Priority Date/Time Associated Diagnosis Comments CT CHEST W CONTRAST Routine 06/12/2017 5 :07 PM EDT Cough Lymphadenopathy Hepatomegaly HEPATITIS C ANTIBODY W/REFLEX TO HCV RNA, QUANTITATIVE PCR Routine 01/26/2017 9:57 AM EDT from Last 3 Months or Most Recently Relevant to Health Maintenance Results * Due to [place] [employer] law, this organization might not be sharing [...] not known, consider bronchoscopy for further evaluation. [id number] Narrative 06/15/2017 2:[address] CHEST [...] the prior chest CT without change 139. Byldtzalu-nx-umm opacities are seen in the right middle lobe and right lowerlobe that were present in the prior exam and slightly more prominent inthe right upper lobe posteriorly compared to prior exam. Some of thepatchy nodules of the right upper lobe have resolved. Minimal vobm-wn-wimxpassklgi are seen in the left upper lobe [...] is no significant interval change in the hpwa-ri-hgvqnpgzlljh from end bronchial inflammation/bronchiolitis as congested inthe prior study. No consolidation or pleural effusion is noted. There isalso no change in the mild bronchiectasis of the lower lobes. If etiologyof the bronchiolitis/inflammation is not known, consider bronchoscopy forfurther evaluation. [id number] Wan Lee MD IMG CT PROCEDURES Final Result * Hepatitis C Antibody w/Reflex to HCV RNA, Quantitative PCR (01/26/2017 9:57 AM EDT) Hepatitis C Antibody NON-REACTI VE NON-REACT [facility] Signal To Cut-Off 0.01 <1.00 [facility] 01/26/2017 9:57 AM EDT 01/26/2017 10:39 AM EDT Renee Moore SENIOR VISUAL DESIGNER LAB BLOOD ORDERABLES Final Result [facility] [address] [facility] 3rd Floor, [place] [address], from Last 3 Months or Most Recently Relevant to Health Maintenance Insurance [address] [place] [address] HSNO/FREE CARE [facility] Advance Directives Documents on File Type Date Recorded Patient Landcare Facilitator Expl [facility] Health Care Proxy 05/29/2017 10:55 AM Care Teams Theatre Program Director Relationship Specialty Start Date End Date Jonel Forrester [address] [place] [address] PCP - General 03/05/17
--- OUTSIDE RECORDS SUMMARY | 2024-09-21 14:02 | XMS_ITS | Encounter Summary ---
Author Organization [employer] Address [address] [facility] 7 [place] [address] Care Team Providers Care Solid Center Winder Name Role Phone Jonel Forrester MD Primary Care Provider [phone] Reason for Visit * Reason Onset Date Comments Call Back Request 08/19/2024 Encounter Details Date Type Department Care Team ([facility] st Contact Info) Description 08/19/2024 Telephone [facility] [address] [place] [address] Jonel Forrester MD [address] [place] [phone] Call Back Request Social History Tobacco Use [...] 08/22/2024 10:48 AM EST TC placed to [facility] Radiology who confirms that the pt has [...] before CT scan. Please contact Spouse at [phone]. documented in this encounter Plan of Treatment Not on file documented as of this encounter Visit Diagnoses Not on filedocumented in this encounter Additional Health Concerns Assessment Noted Time PHQ-9 Depression Total Score: 0 08/12/20 22 2:31 PM EST documented as of this encounter Care Teams Solid Center Winder Relationship Specialty Start Date End Date Jonel Forrester MD [address] [place] [phone] PCP - General Internal Medicine 01/23/14 documented as of this encounter
--- OUTSIDE RECORDS SUMMARY | 2024-09-21 14:02 | XMS_ITS | Encounter Summary ---
Author Organization [employer] Address [address] [facility] 7t [place] [address] Care Team Providers Care Political Geographer Name Role Phone Jonel Forrester MD Primary Care Provider [phone]- [phone] Reason for Visit * Reason Onset Date Comments Referral 07/25/2024 CT scan order 07/25/2024 Encounter Details Date Type Department Care Team ([facility] Contact Info) Description 07/25/2024 Telephone [facility] [address] [place] [address] Jonel Forrester MD [address] [place] [address] Referral; CT scan order Social History Tobacco [...] unable to schedule appointment. Contact Jaye at [phone] documented in this encounter Plan of Treatment Not on file documented as of this encounter Visit Diagnoses Not on filedocumented in this encounter Additional Health Concerns Assessment Noted Time PHQ-9 Depression Total Score: 0 08/12/20 22 2:31 PM EST documented as of this encounter Care Teams Political Geographer Relationship Specialty Start Date End Date Jonel Forrester MD [address] [place] [phone] PCP - General Internal Medicine 01/23/14 documented as of this encounter
[2024-09-21 14:06] LABS: Basophils Percent Auto 0.2 % (0-2); Eosinophils Percent Auto 0.5 % (0-4); Hematocrit 45.7 % (42.0-52.0); Hemoglobin 14.6 g/dl (14.0-18.0); Imm Gran Abs Auto 0.03 X10*3/uL (0.00-0.03); Imm Gran Pct Auto 0.5 % (0.0-0.4); Lymphocytes Absolute Auto 2.2 X10*3/uL (1.2-4.9); Lymphocytes Percent Auto 36.5 % (20-40); Mean Corpuscular HGB Conc 31.9 g/dl (31.0-36.0); Mean Corpuscular Hemoglobin 31.7 pg (27.0-33.0); Mean Corpuscular Volume 99.3 fL (80.0-98.0); Mean Platelet Volume 11.3 fL (9.4-12.4); Monocytes Absolute Auto 0.6 X10*3/uL (0.1-1.2); Monocytes Percent Auto 10.2 % (2-11); Neutrophils Absolute Auto 3.1 x10*3/uL (2.0-8.3); Neutrophils Percent Auto 52.1 % (45-73); Platelet Count 229 X10*3/uL (160-400); White Blood Count 5.9 X10*3/uL (4.8-10.8)
[2024-09-21 14:15] LABS: Lipase 15 U/L (8-78)
[2024-09-21 14:20] LABS: Amylase 43 U/L (28-100)
== END 2024-09-21 12:42 | disposition home or self-care (01) ==
LOC: HO.CHCLDS 12:41
PROVIDERS: Visit Provider Internal Medicine
DX: R10.13 Epigastric pain (principal)
CPT/HCPCS: 36415; 82150; 83690; 85025

== ENCOUNTER 2024-09-28 14:02 | Outpatient (AMB) | payer OTHER, SELFPAY ==
--- NOTE | 2024-09-28 14:15 | MHC.OFFVIS ---
Vital Signs 09/28/24 14:16 Height 6 ft 2 in Weight 224 lb BMI 28.8 BP 118/64 Blood Pressure Location Lt brachial Position Sitting Pulse 84 Pulse Source Doppler Pulse Oximetry (%) 94 Oxygen Delivery Method Room Air Intake Visit Reasons: increased shortness of breath Allergies prednisone Allergy (Severe, Verified 09/28/24 14:23) Angioedema HPI HPI increased shortness of breath: Details: 59-year-old gentleman, active 40+ pack-year smoker, followed for moderate asthma / COPD overlap syndrome, recurrent pulmonary effusions, hypogammaglobulinemia, and recurrent pulmonary infections. Patient has had several recurrences of pleural effusions, that flow tapped and showed to be sterile lymphocytic transudative. His sputum culture grew Pseudomonas several times and he required multiple treatments with p.o. Levaquin and/or IV ertapenem for recurrent pulmonary infections. He was noted to have hypogammaglobulinemia and was started on IVIG, now having received 3 infusions, he was noted to have an abdominal hive like lesion. Of note, patient is also on Xolair from his hedis nurse for urticaria. In terms of respiratory medications he is on Trelegy and albuterol MDI/nebs. Patient is also taking bumetanide 1 mg daily with improved control of his lower extremity edema and pulmonary edema. He was not able to tolerate metolazone. Over the last 2 months patient with slowly cough productive of yellowish sputum and slowly worsening dyspnea. [facility] Medical History (Updated 03/16/24 @ 15:59 by Jair Lala) COPD (chronic obstructive pulmonary disease) Bronchiectasis PRUITT (dyspnea on exertion) IgG deficiency PICC (peripherally inserted central catheter) in place Fatigue Splenomegaly ETOH abuse Anemia with low platelet count Pulmonary nodules Surgical History (Updated 01/27/24 @ 00:02 by Daniel Kevin) Status post left rotator cuff repair (07/15/23) History of thoracentesis Hx of repair of right rotator cuff (10/25/20) History of colonoscopy History of liver biopsy Family History Father Stroke Mother Cancer Social History Household Members: Spouse Housing: House Do you presently have visiting nurse or other home services: No Alcohol intake: never Patient Tobacco Use Status: Former Tobacco user Cigarettes Per Day: 10 Years Smoked: 35 yrs Advance Directives Date on File: 09/07/23 service: No Current occupational status: employed 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 Review of Systems Const Denies daytime sleepiness, Denies excessive sweating, Denies fatigue, Denies fever(s), Denies lethargy, Denies malaise, Denies night sweats, Denies snoring and Denies weight loss Eyes Denies blurry vision and Denies itchy eyes ENT Denies nasal congestion, Denies post nasal drip, Denies sinus pain, Denies sinus pressure and Denies other ( Thrush) Card Denies chest pain, Denies pedal edema, Denies dyspnea, Denies orthopnea and Denies paroxysmal nocturnal dyspnea Resp Reports cough, Denies hemoptysis, Reports excessive phlegm production, Denies dyspnea, Denies snoring and Denies wheezing GI Denies abdominal pain and Denies heartburn Musc Denies myalgias, Denies arthralgias and Denies joint swelling Skin/Breast Denies rash Neuro Denies memory loss and Denies seizure-like activity Psych Denies abnormal sleep pattern, Denies anxiety and Denies memory loss Endo Denies excessive sweating, Denies fatigue and Denies heat intolerance Rohit/Lymph Denies easy bruising Aller/Immun Denies itchy eyes, Denies seasonal rhinorrhea and Denies wheezing Physical Exam Vital Signs: Last Vital Signs Pulse 84 09/28/24 14:16 BP 118/64 09/28/24 14:16 Pulse Ox 94 09/28/24 14:16 Oxygen Delivery Method Room Air 09/28/24 14:16 BMI result Body Mass Index 28.8 Const General: no acute distress and alert Nutritional Appearance: not obese Orientation/consciousness: Other orientation findings ( oriented) HEENT Head: Yes atraumatic Eyes General: appearance normal, both eyes and all related structures Sclerae: sclerae normal EOM: EOMs intact bilaterally Neck Neck: Yes supple Lymphatic: no lymphadenopathy noted Resp Effort & Inspection: normal respiratory effort and no use of accessory muscles Auscultation: rales bilateral Cardio Rate: regular rate Rhythm: regular rhythm Heart sounds: no gallops, no murmurs and no rubs Skin General skin exam: other ( warm) Extrem General: No clubbing, No cyanosis and No edema Assessment & Plan Assessment & Plan (1) Hypogammaglobulinemia: Code(s): D80.1 - Nonfamilial hypogammaglobulinemia Category: Medical Plan: Continue on IVIG. (2) COPD (chronic obstructive pulmonary disease): Code(s): J44.9 - Chronic obstructive pulmonary disease, unspecified Category: Medical Plan: Recently worsening control as patient was not able to tolerate inhaled corticosteroid part of Trelegy. Switch Trelegy to Anoro. Continue duo nebs and albuterol MDI. (3) Cough: Code(s): R05.9 - Cough, unspecified Category: Medical Plan: Now with worsening productive cough with underlying bronchiectasis and history of recurrent Pseudomonas. Will start on 14 day course of Levaquin and reassess symptoms. May require IV therapy. Medications: New umeclidinium-vilanterol 62.5-25 mcg/actuation (Anoro Ellipta) 1 inh inhalation DAILY 1 ea 6RF Refilled levofloxacin 750 mg PO DAILY 14 tabs 0RF Discontinued zadhxkdooxg-vhlhvglqp-temxzhln 100-62.5-25 mcg (Trelegy Ellipta) Discontinued Reason: Doctor's Order 1 inh inhalation RDAILY 60 ea 0RF jmylhftpjj-jmdngdsv-mgnlwcxzpg 160-9-4.8 mcg/actuation (Breztri Aerosphere) Discontinued Reason: Doctor's Order 2 inhalations inhalation BID 1 ea 3RF Coding Level of Care Code Est Pt Level 4 (07436) Complex EM visit Add On G2211 Diagnoses Hypogammaglobulinemia D80.1 COPD (chronic obstructive pulmonary disease) J44.9 Cough R05.9
[2024-09-28 14:16] VITALS: BP 118/64; PULSE 84; O2SAT 94; BMI 28.8
--- OUTSIDE RECORDS SUMMARY | 2024-09-28 15:23 | XMS_ITS | Clinical Summary ---
Author Organization [employer] [facility] lin Address [address] [facility] [address] [place] [address] Care Team Providers Care Environmental Protection Officer Name Role Phone Unavailable Primary Care Provider [...]
--- OUTSIDE RECORDS SUMMARY | 2024-09-28 15:23 | XMS_ITS | Encounter Summary ---
Author Organization [employer] Address [address] [place] [address] Care Team Providers Care Lens Assorter Name Role Phone Jonel Forrester MD Primary Care Provider [phone] Reason for Referral * Imaging (Routine) - Closed Specialty Diagnoses / Procedures Referred By Alex soares Referred To Contact Radiology Diagnoses Steatocystoma Procedures CT Abdomen Pelvis w/ Contrast Jonel Forrester MD [address] [place] [address] Phone: tel: fax: [address] Phone: tel: fax: Referral ID Status Reason Start Date Expiration Date Visits Re quested Visits Authorized [id number] Closed 07/29/2024 07/29/2025 1 1 Encounter Details Date Type Department Care Team (Late st Contact Info) Description 07/29/2024 Orders Only [facility] [address] [place] [address] Jonel Forrester MD [address] [place] [address] Steatocystoma (Primary Dx) Social History Tobacco Use [...] documented in this encounter Plan of Treatment Upcoming Encounters Date Type Department Care Team (Late st Contact Info) Description 11/17/2024 4:00 PM EDT Office Visit [facility] [address] [place] [address] Joenl Forrester MD [address] [place] [address] documented as of this encounter Procedures Procedure [...] EST Narrative 09/13/2024 9:09 PM EST ? [facility] ?[address] ?[place] [address] ? CT Scan Report ? Signed ? Patient: Maximino,Talon ?MR#: [id number] ?? [id number] ? : 1965 ?Acct:[id number] ? Age/Sex: 59 / M ?ADM Date: /28/25 ? Loc: HO.CT ? Attending Dr: Jonel Forrester MD ? Ordering Physician: Jonel Forrester MD ?? Date of Service: 09/13/24 ?? Procedure(s): CT abdomen pelvis w IV con ?? Accession Number(s): [id number] ? cc: Jonel Forrester MD ? Report Number: ?? [id number]: Total DLP = ??714.00 mGy-cm ? CLINICAL [...] ?? 09/13/2024 21:07:39 ? Dictated By: ?Cameron Pnadya MD ? Signed By: ?<Electronically signed by Cameron Pandya MD in OV> ? 09/13/242108 ? DD/ 06 ? TD/TT: 09/13/242106 ? Structural Iron Erector: ? Procedure Note Fab, Image - 09/13/[address] [address] Scan Report Signed Patient: Talon Stanton#: [id number] : 1965Acct:[id number] Age/Sex: 59 / MADM Date: 09/13/24 Loc: HO.CT Attending Dr: Jonel Forrester MD Ordering Physician: Jonel Forrester MD Date of Service: 09/13/24 Procedure(s): CT abdomen pelvis w IV con Accession Number(s): [id number] cc: Jonel Forrester MD Report Number: [id number]: Total DLP = 714.00 mGy-cm CLINICAL HISTORY: [...] in OV> 09/13/242108 DD/ 06 TD/TT: 09/13/242106 Structural Iron Erector: us Jonel Forrester MD IMG CT PROCEDURES Final Res ult * XR Chest 2 Views (08/15/2024 11:19 AM EST) Anatomical Region Laterality Modality Chest Radiographic Angelique ging 08/15/2024 11:1 9 AM EST Narrative 08/15/2024 2:27 PM EST ? [facility] ?[address] ?[place] [address] ?XRay Report ? Signed ? Patient: Maximino,Talon ?MR#: [id number] ?? [id number] ? : 1965 ?Acct:[id number] ? Age/Sex: 59 / M ?ADM Date: 08/15/24 ? Loc: HO.XRAY ? Attending Dr: Ingrid Wahl COMMUNICATIONS AND SIGNALS SUPERVISOR ? Ordering Physician: Ingrid Wahl NP ?? Date of Service: 08/15/24 ?? Procedure(s): XR chest 2V ?? Accession Number(s): [id number] ? cc: Jonel Forrester MD; Ingrid Wahl [...] disease. ? Electronically signed by: ??José Miguel Ingrid MD ??08/15/2024 02:24 PM EST RP ? Dictated By: ?Ingrid,José Miguel S MD ? Signed By: ?<Electronically signed by José Miguel S Ingrid, MD in OV> ?08/15/24 1424 ? DD/ 1119 ? TD/TT: 08/15/24 1125 ? Structural Iron Erector: MSM ? Procedure Note Fab, Image - 08/15/2024 [id number] [place] [address] XRay Report Signed Patient: Talon StantonMR#: [id number] : 1965Acct:[id number] Age/Sex: 59 / MADM Date: 08/15/24 Loc: HO.XRAY Attending Dr: Ingrid Wahl COMMUNICATIONS AND SIGNALS SUPERVISOR Ordering Physician: Ingrid Wahl NP Date of Service: 08/15/24 Procedure(s): XR chest 2V Accession Number(s): [id number] cc: Jonel Forrester MD; Ingrid Wahl NP [...] José Miguel Quintero MD 08/15/2024 02:24 PM [facility] Dictated By: José Miguel Quintero MD Signed By: <Electronically signed by José Miguel Quintero MD in OV> 08/15/24 1424 DD/ 1119 TD/TT: 08/15/24 1125 Structural Iron Erector: GERONIMO [facility] External Provider IMG XR PROCEDURES Final Result documented in this encounter Visit Diagnoses Diagnosis Steatocystoma- Primary Sebaceous cyst documented in this encounter Additional Health Concerns Assessment Noted Time PHQ-9 Depression Total Score: 0 08/12/20 22 2:31 PM EST documented as of this encounter Care Teams Lens Assorter Relationship Specialty Start Date End Date Jonel Forrester MD [address] [place] [address] PCP - General Internal Medicine 01/23/14 documented as of this encounter
--- OUTSIDE RECORDS SUMMARY | 2024-09-28 15:23 | XMS_ITS | Encounter Summary ---
Author Organization [employer] Address [address] [facility] [address] [place] [address] Care Team Providers Care Bell Ringer Name Role Phone Jonel Forrester MD Primary Care Provider [phone] Reason for Visit * Reason Onset Date Comments Referral 07/25/2024 CT scan order 07/25/2024 Encounter Details Date Type Department Care Team ([facility] Contact Info) Description 07/25/2024 Telephone [facility] MED [facility] [address] [place] [address] Jonel Forrester MD [address] [place] [address] Referral; CT scan order Social History Tobacco [...] unable to schedule appointment. Contact Jaye at [phone] documented in this encounter Plan of Treatment Upcoming Encounters Date Type Department Care Team (Late st Contact Info) Description 11/17/2024 4:00 PM EDT Office Visit [facility] [address] [place] [address] Jonel Forrester MD [address] [place] [address] documented as of this encounter Visit Diagnoses Not on filedocumented in this encounter Additional Health Concerns Assessment Noted Time PHQ-9 Depression Total Score: 0 08/12/20 22 2:31 PM EST documented as of this encounter Care Teams Bell Ringer Relationship Specialty Start Date End Date Jonel Forrester MD [address] [place] [address] PCP - General Internal Medicine 01/23/14 documented as of this encounter
--- OUTSIDE RECORDS SUMMARY | 2024-09-28 15:23 | XMS_ITS | Clinical Summary ---
Author Organization [employer] Address [address] [facility] 7[address] [place] [address] Care Team Providers Care Television Writer Name Role Phone Jonel Forrester MD Primary Care Provider [phone] Allergies No known active allergies Medications ipratropium-al buterol (Duo-Neb) 0.5-2.5 mg/3 mL nebulizer solution INHALE 3 ML EVERY 4 TO 6 HOURS NEEDED FOR WHEEZING 2 Active albuterol (2.5 MG/3ML) 0.083% nebulizer solution USE 1 VIAL VIA NEBULIZER EVERY 4 TO 6 HOURS NEEDED FOR SHORTNESS OF BREATH OR WHEEZING 3 Active ibuprofen 800 MG tablet Take 1 tablet by mouth if needed in the morning, at noon, and at bedtime for pain. 3 Active bumetanide (Bumex) 1 MG tablet Take 1 mg by mouth in the morning. 4 Active EPINEPHrine (Epipen) 0.3 MG/0.3ML injection syringe USE DIRECTED FOR ANAPHYLAXIS 3 Active Trelegy Ellipta 100-62.5-25 MCG/ACT aerosol powder Inhale 1 puff by mouth once daily 4 Active Xolair 150 MG/ML injection Inject 2 syringes subcutaneously every 4 weeks 4 Active fluticasone (Flonase) 50 MCG/ACT nasal sprayIndicatio ns:Nasal congestion Administer 1-2 sprays into each nostril Once per day. Shake gently. Before first use, prime pump. After use, clean tip and replace cap. 16 g 11 5 026 Active Active Problems Problem Noted Date Diagnosed Date Hypogammaglobulinemia 06/02/2024 Assessment & Plan (07/05/2024 4:58 PM EST): To follow-up with [facility] as scheduled. No acute intervention done today. 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 Encounters Date Type Department Care Team Description 09/22/2024 Telephone [facility] [address] [place] [address] Jonel Forrester MD 09/21/2024 11:15 AM EST Office Visit [facility] [address] [place] [address] Jonel Forrester MD Epigastric pain (Primary Dx); Other acute pancreatitis without infection or necrosis; Other headache syndrome; Bronchitis; Nasal congestion 09/21/2024 Travel 08/29/2024 Telephone [facility] [address] [place] [address] Jonel Forrester MD Nurse Triage 08/26/2024 Refill [facility] [address] [place] [address] Jonel Forrester MD Thrombocytopenia ([facility]/HCC) 08/25/2024 Telephone [facility] [address] [place] [phone] Jonel Forrester MD callback requested 08/22/2024 Orders Only [facility] [address] [place] [address] Jonel Forrester MD Thrombocytopenia ([facility]/HCC) (Primary Dx) 08/19/2024 Telephone [facility] [address] [place] [address] Jonel Forrester MD Call Back Request 07/29/2024 Orders Only [facility] [address] [place] [address] Jonel Forrester MD Steatocystoma (Primary Dx) 07/26/2024 Telephone [facility] [address] [place] [address] Jonel Forrester MD Referral 07/26/2024 Telephone [place] [employer] [address] [place] [address] ABDOMEN 07/25/2024 Telephone [facility] [address] [place], [place] [phone] Jonel Forrester MD Referral; CT scan order 07/12/2024 10:30 AM EST Office Visit [facility] [address] [place] [address] Jonel Forrester MD Porokeratosis (Primary Dx); Steatocystoma; Erythema 07/12/2024 Travel 07/05/2024 3:30 PM EST Office Visit [facility] [address] [place] [address] Jonel Forrester MD Nail dystrophy (Primary Dx); Hypogammaglobulinemia (CMS/HCC); Skin pustule 07/05/2024 Travel 06/28/2024 Patient Outreach [facility] [address] [place] [address] Jonel Forrester MD Pre-visit Planning ([facility] unable to reach [facility]) from Last 3 Months Immunizations Name Administration Dates Next Due Pneumococcal Polysaccharide PPSV23 06/05/2013 Tdap 02/22/2008 Social History Tobacco Use Types Packs/Day Years Used Date Smoking Tobacco: Former Cigarettes Passive Smoke Exposure: Past Smokeless Tobacco: Never Tobacco Cessation:Counseling Given: Not Answered Depression Answer Date Recorded Patient Health Questionnaire-9 Score 10 09/21/2024 Patient Health Questionnaire-9 Score 10 09/21/2024 Last PHQ-9: Questionnaire Data Not on file 0 09/21/2024 Housing Stability Answer Date Recorded What is your housing situation today? I have tomas piedra 09/21/[address] you li ve. Do you have problems with any of the following? None of the above 09/21/2024 Food Insecurity Answer Date Recorded Within the past 12 months, y ou worried that your food would run out before you got money to buy more: Never True 09/21/2024 Within the past 12 months,th e food you bought just didn't last and you didn't have enough money to get more: Never True 12/2024 Transportation Answer Date Recorded In the past 12 months, has l ack of transportation kept you from medical appts, meetings, work or from getting things needed for daily living? No 09/21/2024 Utilities Answer Date Recorded In the past 12 months, has t he electric, gas, oil or water company threatened to shut off services in your home? No 09/21/2024 Depression Answer Date Recorded Patient Health Questionnaire-2 Score 3 09/21/2024 Internet Access Answer Date Recorded Internet Access Q1 Yes 09/21/2024 Internet Access Q2 Not on file 09/21/2024 Sex and Gender Information Value Date Recorded [...] 09/21/2024 11:30 AM EST Plan of Treatment Upcoming Encounters Date Type Department Care Team (Late st Contact Info) Description 11/17/2024 4:00 PM EDT Office Visit [facility] [address] [place] [address] Jonel Forrester MD [address] [place] [address] Health Maintenance Due Date Last Done Comments CT Colonography 1965 FIT DNA/Cologuard 1965 FIT 1965 FOBT 1965 Sigmoidoscopy 1965 COVID-19 Vaccine (#1) 02/24/1969 Hepatitis A Vaccines (1 of 2 - Risk 2-dose series) 02/24/1983 Zoster Vaccines (1 of 2) 02/24/1983 Pneumococcal Vaccine: 50+ Years (2 of 2 - PCV) 06/05/2014 06/05/2013 Colonoscopy 06/13/2019 06/13/2014 Colorectal Cancer Screening 06/13/2019 Hepatitis B Vaccines (1 of 3 - Risk 3-dose series) 2024 RSV Patients and Patients Aged 60 years or older (1 - Risk 60-74 years 1-dose series) 2024 Influenza Vaccine (#1) 2024 Depression Monitoring (PHQ-9) 03/21/2025, 09/21/2024 Alcohol/Substance Use Screening 09/21/2025 09/21/2024 Depression Screening 09/21/2025 09/21/2024, 09/21/2024 SDOH Screening 09/21/2025 09/21/2024 Tobacco Screening 09/21/2025 09/21/2024 Lipid Panel 08/24/2028 08/24/2023, 09/24/2021, 03/26/2021 DTaP/Tdap/Td [...] Procedure Name Priority Date/Time Associated Diagnosis Comments CBC WITH AUTO DIFFERENTIAL Routine 09/21/2024 12:42 PM EST Epigastric pain LIPASE Routine 09/21/2024 12:42 PM EST Epigastric pain AMYLASE Routine 09/21/2024 12:42 PM EST Epigastric pain CT ABDOMEN PELVIS W CONTRAST Routine 09/13/2024 [...] Recently Relevant to Health Maintenance Results * (ABNORMAL) CBC auto differential (09/21/2024 12:42 PM EST) White Blood Count 5.9 4.8 - 10.8 X10*3/uL [facility] Red Blood Count 4.60 4.60 - 5.80 X10*6/uL [facility] Hemoglobin 14.6 14.0 - 18.0 g/dl [facility] Hematocrit 45.7 42.0 - 52.0 % [facility] Mean Corpuscular Volume 99.3(H) 80.0 - 98.0 fL [facility] Mean Corpuscular Hemoglobin 31.7 27.0 - 33.0 pg [facility] Mean Corpuscular HGB Conc 31.9 31.0 - 36.0 g/dl [facility] Red Cell Distribution Width 15.0 11.0 - 16.0 % [facility] Platelet Count 229 160 - 400 X10*3/uL [facility] Mean Platelet Volume 11.3 9.4 - 12.4 fL [facility] Neutrophils Percent Auto 52.1 45 - 73 % [facility] Imm Gran Pct Auto 0.5(H) 0.0 - 0.4 % [facility] Lymphocytes Percent Auto 36.5 20 - 40 % [facility] Monocytes Percent Auto 10.2 2 - 11 % [facility] Eosinophils Percent Auto 0.5 0 - 4 % [facility] Basophils Percent Auto 0.2 0 - 2 % [facility] NRBC Pct Auto 0.0 0.0 - 0.2 /100WBC [facility] Neutrophils Absolute Auto 3.1 2.0 - 8.3 x10*3/uL [facility] Imm Gran Abs Auto 0.03 0.00 - 0.03 X10*3/uL [facility] Lymphocytes Absolute Auto 2.2 1.2 - 4.9 X10*3/uL [facility] Monocytes Absolute Auto 0.6 0.1 - 1.2 X10*3/uL [facility] Eosinophils Absolute Auto 0.0 0.0 - 0.4 X10*3/uL [facility] Basophils Absolute Auto 0.0 0.0 - 0.2 X10*3/uL [facility] NRBC Abs Auto 0.000 0.0 - 0.012 X10*3/uL [facility] Blood Venous blood specimen / Unknown 09/21/2024 12:42 PM EST 09/21/2024 1:57 PM EST us Jonel Forrester MD LAB BLOOD ORDERABLES Final Result Performing Organization Address [facility] de Phone Number [facility] [address] [place] [phone] * Lipase (09/21/2024 12:42 PM EST) Lipase 15 8 - 78 U/L [facility] Blood Venous blood specimen / Unknown 09/21/2024 12:42 PM EST 09/21/2024 1:57 PM EST us Jonel Forrester MD LAB BLOOD ORDERABLES Final Result Performing Organization Address [facility] Phone Number [facility] [address] [place] [phone] * Amylase (09/21/2024 12:42 PM EST) Amylase 43 28 - 100 U/L [facility] Blood Venous blood specimen / Unknown 09/21/2024 12:42 PM EST 09/21/2024 1:57 PM EST us Jonel Forrester MD LAB BLOOD ORDERABLES Final Result Performing Organization Address [facility] Phone Number [facility] [address] [place] [phone] * CT Abdomen Pelvis w/ Contrast (09/13/2024 9:07 PM EST) Anatomical Region Laterality Modality Body, Pelvis, Abdomen Computed T omography 09/13/2024 9:07 PM EST Narrative 09/13/2024 9:09 PM EST ? [facility] ?[address] ?[place] [address] ? CT Scan Report ? Signed ? Patient: Maximino,Talon ?MR#: [id number] ?? [id number] ? : 1965 ?Acct:[id number] ? Age/Sex: 59 / M ?ADM Date: 09/13/24 ? Loc: HO.CT ? Attending Dr: Jonel Forrester MD ? Ordering Physician: Jonel Forrester MD ?? Date of Service: 09/13/24 ?? Procedure(s): CT abdomen pelvis w IV con ?? Accession Number(s): [id number] ? cc: Jonel Forrester MD ? Report Number: ?? [id number]: Total DLP = ??714.00 mGy-cm ? CLINICAL [...] ? DD/ 06 ? TD/TT: 09/13/242106 ? New Car Make Ready Mechanic: ? Procedure Note Donotuseinterpreter, Image - 09/13/[address] [address] [address] Scan Report Signed Patient: Megan Stanton#: [id number] : 1965Acct:[id number] Age/Sex: 59 / MADM Date: 09/13/24 Loc: HO.CT Attending Dr: Jonel Forrester MD Ordering Physician: Jonel Forrester MD Date of Service: 09/13/24 Procedure(s): CT abdomen pelvis w IV con Accession Number(s): [id number] cc: Jonel Forrester MD Report Number: [id number]: Total DLP = 714.00 mGy-cm CLINICAL HISTORY: [...] in OV> 09/13/242108 DD/ 06 TD/TT: 09/13/242106 New Car Make Ready Mechanic: us Jonel Forrester MD IMG CT PROCEDURES Final Res ult * Creatinine, Serum (09/07/2024 11:09 AM EST) Creatinine, Serum 0.88 0.5 - 1.4 mg/dL [facility] Estimated Glomerular Filt Rate >60 [facility] Comment:Chronic Kidney Disea se: Estimated GFR < 60 mL/min/1.30x1Ajefcd Kidney Disease: Estimated GFR < 15 mL/min/1.73m2 Blood Venous blood specimen / Unknown 09/07/2024 11:09 AM EST 09/07/2024 11:09 AM EST us Jonel Forrester MD LAB BLOOD ORDERABLES Final Result Performing Organization Address [facility] Co de Phone Number [facility] [address] [place] [phone] * (ABNORMAL) BUN (Blood Urea Nitrogen) (09/07/2024 11:09 AM EST) Urea Nitrogen (BUN) 18(H) 9 - 16 mg/dL [facility] Blood Venous blood specimen / Unknown 09/07/2024 11:09 AM EST 09/07/2024 11:09 AM EST us Jonel Forrester MD LAB BLOOD ORDERABLES Final Result Performing Organization Address [facility] de Phone Number [facility] [address] [place] [phone] * XR Chest 2 Views (08/15/2024 11:19 AM EST) Anatomical Region Laterality Modality Chest Radiographic Angelique ging 08/15/2024 11:1 9 AM EST Narrative 08/15/2024 2:27 PM EST ? [facility] ?[address] ?[place] [address] ?XRay Report ? Signed ? Patient: Maximino,Talon ?MR#: [id number] ?? [id number] ? : 1965 ?Acct:[id number] ? Age/Sex: 59 / M ?ADM Date: 08/15/24 ? Loc: HO.XRAY ? Attending Dr: Ingrid Wahl CONCRETE PRODUCTS DISPATCHER ? Ordering Physician: Ingrid Wahl NP ?? Date of Service: 08/15/24 ?? Procedure(s): XR chest 2V ?? Accession Number(s): [id number] ? cc: Jonel Forrester MD; Ingrid Wahl [...] DD/ 1119 ? TD/TT: 08/15/24 1125 ? New Car Make Ready Mechanic: MSM ? Procedure Note Carole Sanon - 08/15/[address] [address] XRay Report Signed Patient: Talon StantonMR#: [id number] : 1965Acct:[id number] Age/Sex: 59 / MADM Date: 08/15/24 Loc: HO.XRAY Attending Dr: Ingrid Wahl CONCRETE PRODUCTS DISPATCHER Ordering Physician: Ingrid Wahl NP Date of Service: 08/15/24 Procedure(s): XR chest 2V Accession Number(s): [id number] cc: Jonel Forrester MD; Ingrid Wahl NP [...] 08/15/24 1424 DD/ 1119 TD/TT: 08/15/24 1125 New Car Make Ready Mechanic: GERONIMO [facility] External Provider IMG XR PROCEDURES Final Result * Shave removal (07/12/2024 2:51 PM EST) Jonel Grider MD - 07/12/2024 2:51 PM EST Jonel Forrester MD ? 07/12/2024 ??2:55 PM Shave removal Date/Time: 07/12/2024 2:51 PM Performed by: Jonel Forrester MD Authorized by: Jonel Forrester MD ?? Consent: ??Consent obtained: ??Verbal ??Risks discussed: ??Bleeding, infection, pain and poor cosmetic result ??Alternatives discussed: ??Observation Manderson protocol: ??Procedure explained and questions answered to [...] 10:22 AM EST) Triglycerides 88 <150 mg/dL [facility] Comment:Desirable Triglyceri de: less than 150 mg/dLBorderline High Triglyceride 150-199 mg/dLHigh Triglyceride: 200-499 mg/dLVery High Triglyceride: greater than or equal to 5OO mg/dL Cholesterol 204(H) <200 mg/dL [facility] Comment:Desirable Cholestero l: less than 200 mg/dLBorderline High Cholesterol: 200-239 mg/dLHigh Cholesterol: greater than 239 mg/dL LDL Cholesterol Calculated 137(H) <100 mg/dL [facility] Comment:Desirable LDL: less than 100 mg/dLNear Optimal/Above Optimal LDL: 110- 129 mg/dLBorderline High LDL: 130-159 mg/dLHigh LDL: 160-189 mg/dLVery High LDL: greater than or equal to 190 mg/dL HDL Cholesterol 50 >40 mg/dL [facility] Comment:Desirable HDL: great er than 40 mg/dL Note: This HDL assay may give artificially low results in patients with liver disease. Blood Venous blood specimen / Unknown 08/24/2023 10:22 AM EST 08/24/2023 10:22 AM EST us Jonel Forrester MD LAB BLOOD ORDERABLES Final Result [facility] [address] [place] [phone] * Hepatitis C Ab (01/14/2023 3:47 PM EDT) [facility] Hepatitis C Antibody Nonreactive Nonreactive [facility] Comment:Antibodies to HCV no t detected; does not exclude early acuteHCV infection. 01/14/2023 3:47 PM EDT 01/14/2023 3:48 PM EDT [facility] External Provider LAB BLO OD ORDERABLES Final Result Performing Organization Address [facility]/ZIP Co de Phone Number [facility] [address] [place] [phone] [phone] * HIV Ab/Ag ([facility]) (01/14/2023 3:47 PM EDT) [facility] HIV AB/AG Nonreactive Nonreactive [facility] Comment:HIV-1 p24 Ag and/or HIV-1/HIV-2 Ab not detected.A test result that is nonreactive does not exclude thepossibility of exposure to or infection with HIV-1 and/orHIV-2. Nonreactive results in this assay for individualswith prior exposure to HIV-1 and/or HIV-2 may be due toantigen and antibody levels that are below the limit ofdetection of this assay.The Madsen Clicker Operator HIV Ag/Ab Combo assay result andsupplemental assay results should be interpreted inconjunction with the patient's clinical presentation,history and other laboratory results. If the results areinconsistent with clinical evidence, additional testing issuggested to confirm the result. 01/14/2023 3:47 PM EDT 01/14/2023 3:48 PM EDT [facility] External Provider LAB BLO OD ORDERABLES Final Result Performing Organization Address [facility]/ZIP Co de Phone Number [facility] [address] [place] [phone] * Hm Colonoscopy (06/13/2014) Colonoscopy Normal Normal us Historical Provider HEALTH MAINTENANCE Final Result from Last 3 Months or Most Recently Relevant to Health Maintenance Insurance , [address] [place] [address] Care Teams Television Writer Relationship Specialty Start Date End Date Jonel Forrester MD [address] [place] [phone] PCP - General Internal Medicine 01/23/14
--- OUTSIDE RECORDS SUMMARY | 2024-09-28 15:23 | XMS_ITS | Encounter Summary ---
Author Organization [employer] Address [address] [facility] 7t [place] [address] Care Team Providers Care Senior Mortgage Loan Processor Name Role Phone Jonel Forrester MD Primary Care Provider [phone] Reason for Visit * Reason Onset Date Comments Referral 07/26/2024 Encounter Details Date Type Department Care Team ([facility] st Contact Info) Description 07/26/2024 Telephone [facility] [address] [place] [address] Jonel Forrester MD [address] [place] [address] Referral Social History Tobacco Use Types Packs/Day [...] ask PCP a new order. Callback number [phone] documented in this encounter Plan of Treatment Upcoming Encounters Date Type Department Care Team (Late st Contact Info) Description 11/17/2024 4:00 PM EDT Office Visit [facility] [address] [place] [address] Jonel Forrester MD [address] [place] [address] documented as of this encounter Visit Diagnoses Not on filedocumented in this encounter Additional Health Concerns Assessment Noted Time PHQ-9 Depression Total Score: 0 08/12/20 22 2:31 PM EST documented as of this encounter Care Teams Senior Mortgage Loan Processor Relationship Specialty Start Date End Date Jonel Forrester MD [address] [place] [address] PCP - General Internal Medicine 01/23/14 documented as of this encounter
--- OUTSIDE RECORDS SUMMARY | 2024-09-28 15:23 | XMS_ITS | Encounter Summary ---
Author Organization [employer] Address [address] [facility] [address] [place] [address] Care Team Providers Care Solar Sales Energy Advisor Name Role Phone Jonel Forrester MD Primary Care Provider [phone] Encounter Details Date Type Department Care Team (Late st Contact Info) Description 06/06/2024 Orders Only [facility] [address] [place], [place] [phone] Jonel Forrester MD [address] [place] [address] Social History Tobacco Use Types Packs/Day Years [...] as of this encounter Plan of Treatment Upcoming Encounters Date Type Department Care Team (Late st Contact Info) Description 11/17/2024 4:00 PM EDT Office Visit [facility] [address] [place] [address] Jonel Forrester MD [address] [place] [address] documented as of this encounter Visit Diagnoses Not on filedocumented in this encounter Additional Health Concerns Assessment Noted Time PHQ-9 Depression Total Score: 0 08/12/20 22 2:31 PM EST documented as of this encounter Care Teams Solar Sales Energy Advisor Relationship Specialty Start Date End Date Jonel Forrester MD [address] [place] [address] PCP - General Internal Medicine 01/23/14 documented as of this encounter
--- OUTSIDE RECORDS SUMMARY | 2024-09-28 15:24 | XMS_ITS | Referral Summary ---
Author Organization [facility] Address [address] [place] [address] Care Team Providers Care Phone Engineer Name Role Phone Jonel Forrester Primary Care Provider + [phone] Allergies No known active allergies Medications ferrous [...] Not on file Procedures * Due to [place] [employer] law, this organization might not be sharing negative HIV tests. Procedure Name Priority Date/Time Associated Diagnosis Comments CT CHEST W CONTRAST Routine 06/12/2017 5 :07 PM EDT Cough Lymphadenopathy Hepatomegaly HEPATITIS C ANTIBODY W/REFLEX TO HCV RNA, QUANTITATIVE PCR Routine 01/26/2017 9:57 AM EDT from Last 3 Months or Most Recently Relevant to Health Maintenance Results * Due to [place] [employer] [place] law, this organization might not be sharing [...] not known, consider bronchoscopy for further evaluation. [id number] Narrative 06/15/2017 2:[address] CHEST [...] the prior chest CT without change 139. Uhpaoumnj-jf-pqv opacities are seen in the right middle lobe and right lowerlobe that were present in the prior exam and slightly more prominent inthe right upper lobe posteriorly compared to prior exam. Some of thepatchy nodules of the right upper lobe have resolved. Minimal dzul-pj-awuukvlyycft are seen in the left upper lobe [...] is no significant interval change in the tziq-iz-efawotwzgxxl from end bronchial inflammation/bronchiolitis as congested inthe prior study. No consolidation or pleural effusion is noted. There isalso no change in the mild bronchiectasis of the lower lobes. If etiologyof the bronchiolitis/inflammation is not known, consider bronchoscopy forfurther evaluation. [id number] Wan Lee MD IMG CT PROCEDURES Final Result * Hepatitis C Antibody w/Reflex to HCV RNA, Quantitative PCR (01/26/2017 9:57 AM EDT) Hepatitis C Antibody NON-REACTI VE NON-REACT MAXIMINO [facility] Signal To Cut-Off 0.01 <1.00 [facility] 01/26/2017 9:57 AM EDT 01/26/2017 10:39 AM EDT Renee Moore TIME CLERK LAB BLOOD ORDERABLES Final Result JULIA AGUIRRE [address] [facility] 3rd Floor, [place] [address], [place] [phone] from Last 3 Months or Most Recently Relevant to Health Maintenance Insurance HSNO/FREE CARE Advance Directives Documents on File Type Date Recorded Patient Camera Control Operator Expl [facility] Care Proxy 05/29/2017 10:55 AM Care Teams Phone Engineer Relationship Specialty Start Date End Date Jonel Forrester [address] [place] [phone] PCP - General 03/05/17
--- OUTSIDE RECORDS SUMMARY | 2024-09-28 15:24 | XMS_ITS | Encounter Summary ---
Author Organization [employer] Address [address] [facility] 7t [place] [address] Care Team Providers Care Canadian Bacon Tier Name Role Phone Jonel Forrester MD Primary Care Provider [phone] Encounter Details Date Type Department Care Team (Late Contact Info) Description 08/04/[address] [facility] MEDICINE [address] [place] [address] Jonel Forrester MD [address] [place], [place] [phone] Social History Tobacco Use Types Packs/Day Years [...] Encounters Date Type Department Care Team (Late Contact Info) Description 11/17/2024 4:00 PM EDT Office Visit [facility] CHC MED & PEDS [address] [place], [place] [phone] Jonel Forrester MD [address] [place], [place] [phone] documented as of this encounter Visit Diagnoses Not on filedocumented in this encounter Care Teams Canadian Bacon Tier Relationship Specialty Start Date End Date Jonel Forrester MD [address] [place] [address] PCP - General Internal Medicine 01/23/14 documented as of this encounter
--- OUTSIDE RECORDS SUMMARY | 2024-09-28 15:24 | XMS_ITS | Encounter Summary ---
Author Organization [employer] Address [address] [facility] 7t [place] [address] Care Team Providers Care Mortgage Protection Specialist Name Role Phone Jonel Forrester MD Primary Care Provider [phone] Encounter Details Date Type Department Care Team (Late Contact Info) Description 09/11/2022 Orders Only [facility] MEDICINE [address] [place] [address] Jonel Forrester MD [address] [place] [address] Hemoptysis (Primary Dx); Pneumonia of both lungs [...] Description 11/17/2024 4:00 PM EDT Office Visit [facility] CHC MED & PEDS [address] [place] [address] Jonel Forerster MD [address] [place] [address] documented as of this encounter Visit Diagnoses Diagnosis Hemoptysis- Primary Pneumonia of both lungs due to infectious organism, unspecified part of lung documented in this encounter Additional Health Concerns Assessment Noted Time PHQ-9 Depression Total Score: 0 08/12/20 22 2:31 PM EST documented as of this encounter Care Teams Mortgage Protection Specialist Relationship Specialty Start Date End Date Jonel Forrester MD [address] [place] [address] PCP - General Internal Medicine 01/23/14 documented as of this encounter
--- OUTSIDE RECORDS SUMMARY | 2024-09-28 15:24 | XMS_ITS | Encounter Summary ---
Author Organization [email or web address] Address [address] [facility] 7t [place] [address] Care Team Providers Care Hops Farmworker Name Role Phone Jonel Forrester MD Primary Care Provider [phone] Encounter Details Date Type Department Care Team (Late st Contact Info) Description 06/17/2023 Abstract [facility] MEDICINE [address] [place] [address] Jonel Forrester MD [address] [place] [address] Social History Tobacco Use Types Packs/Day Years [...] Description 11/17/2024 4:00 PM EDT Office Visit [facility] MED & PEDS 505 [place] [address] Jonel Forrester MD [address] [place] [address] documented as of this encounter Procedures Procedure Name Priority Date/Time Associated Diagnosis Comments COLONOSCOPY Routine 06/13/2014 documented in this encounter Results * Colonoscopy (06/13/2014) Colonoscopy Normal Normal us Historical Provider HEALTH MAINTENANCE Final Result documented in this encounter Visit Diagnoses Not on filedocumented in this encounter Additional Health Concerns Assessment Noted Time PHQ-9 Depression Total Score: 0 08/12/20 22 2:31 PM EST documented as of this encounter Care Teams Hops Farmworker Relationship Specialty Start Date End Date Jonel Forrester MD [address] [place] [address] PCP - General Internal Medicine 01/23/14 documented as of this encounter
--- OUTSIDE RECORDS SUMMARY | 2024-09-28 15:24 | XMS_ITS | Encounter Summary ---
Author Organization [email or web address] Address [address] [facility] 7 [place] [address] Care Team Providers Care Acting Manager Name Role Phone Jonel Forrester MD Primary Care Provider [phone] Reason for Visit * Reason Onset Date Comments Referral 09/05/2022 Encounter Details Date Type Department Care Team ([facility] st Contact Info) Description 09/05/2022 Telephone [facility] CHC MED & PEDS 505 [place] [address] Jonel Forrester MD [address] [place] [address] Referral Social History Tobacco Use Types Packs/Day [...] Miscellaneous Notes * Telephone Encounter - Arina Alice - 09/05/2022 12:06 PM EST Outbound call to Jennie Gandara ( spouse ) to advised telegraphic typewriter mechanic spoke to Web Software Engineer and referral will be sent today with urgency noted on referral. No answer. Left VM. Please advise pt is return call. documented in this encounter Plan of Treatment Upcoming Encounters Date Type Department Care Team (Late st Contact Info) Description 11/17/2024 4:00 PM EDT Office Visit [facility] MED & PEDS 505 [place] [address] Jonel Forrester MD [address] [place] [address] documented as of this encounter Visit Diagnoses Not on filedocumented in this encounter Additional Health Concerns Assessment Noted Time PHQ-9 Depression Total Score: 0 08/12/20 22 2:31 PM EST documented as of this encounter Care Teams Acting Manager Relationship Specialty Start Date End Date Jonel Forrester MD [address] [place] [address] PCP - General Internal Medicine 01/23/14 documented as of this encounter
--- OUTSIDE RECORDS SUMMARY | 2024-09-28 15:24 | XMS_ITS | Encounter Summary ---
Author Organization [employer] Address [address] [facility] 7t [place] [address] Care Team Providers Care Internet Media Planner Name Role Phone Jonel Forrester MD Primary Care Provider [phone] Encounter Details Date Type Department Care Team (Late st Contact Info) Description 08/22/2024 Orders Only [facility] CHC MED & PEDS [address] [place], [place] [phone] Jonel Forrester MD [address] [place] [address] Thrombocytopenia ([facility]) (Primary Dx) Social History Tobacco Use Types Packs/Day Years Used Date Smoking Tobacco: Former Cigarettes Passive Smoke Exposure: Past Smokeless Tobacco: Never Depression Answer Date Recorded Patient Health Questionnaire-9 Score 0 08/12/2022 Housing Stability Answer Date Recorded What is your housing situation today? I have tomas peidra 05/24/[address] you li [...] Description 11/17/2024 4:00 PM EDT Office Visit [facility] MED & PEDS [address] [place], [place] [phone] Jonel Forrester MD [address] [place], [place] [phone] documented as of this encounter Procedures Procedure Name Priority Date/Time Associated Diagnosis Comments CREATININE, SERUM Routine 09/07/2024 11: 09 AM EST Thrombocytopenia (CMS/HCC) UREA NITROGEN (BUN) Routine 09/07/2024 1 1:09 AM EST Thrombocytopenia (CMS/HCC) documented in this encounter Results * Creatinine, Serum (09/07/2024 11:09 AM EST) Creatinine, Serum 0.88 0.5 - 1.4 mg/dL [facility] Estimated Glomerular Filt Rate >60 [facility] Comment:Chronic Kidney Disea se: Estimated GFR < 60 mL/min/[id number] Kidney Disease: Estimated GFR < 15 mL/min/1.73m2 Blood Venous blood specimen / Unknown 09/07/2024 11:09 AM EST 09/07/2024 11:09 AM EST us Jonel Forrester MD LAB BLOOD ORDERABLES Final Result [facility] [address] [place], [place] [phone] * (ABNORMAL) BUN (Blood Urea Nitrogen) (09/07/2024 11:09 AM EST) Urea Nitrogen (BUN) 18(H) 9 - 16 mg/dL [facility] Blood Venous blood specimen / Unknown 09/07/2024 11:09 AM EST 09/07/2024 11:09 AM EST Jonel Forrester MD LAB BLOOD ORDERABLES Final Result [facility] [address] [place] [address] [phone] documented in this encounter Visit Diagnoses Diagnosis Thrombocytopenia (CMS/HCC)- Primary Unspecified thrombocytopenia documented in this encounter Additional Health Concerns Assessment Noted Time PHQ-9 Depression Total Score: 0 08/12/20 22 2:31 PM EST documented as of this encounter Care Teams Internet Media Planner Relationship Specialty Start Date End Date Jonel Forrester MD [address] [place] [address] PCP - General Internal Medicine 01/23/14 documented as of this encounter
--- OUTSIDE RECORDS SUMMARY | 2024-09-28 15:24 | XMS_ITS | Continuity of Care Document ---
Author Organization [facility] Address [address] [place] [address] [address] [place] [phone] Phone Care Team Providers Care Airborne Operations Manager Name Role Phone Jeb Wallace MD, FACS, RVT Unavailable Unavailable Advance Directives Directive Yes / No Effective Date File Name No Information Encounters Encounter Description Practice Location Reason(s) For Visit Diagnoses Date Provider Providers Copied on Encounter [facility], [address] [place] [address] Dr [address], [place], [id number], tel:[phone] [facility] No Information 3 Santy Bryan. [address] [address], [place], [address], [place]. tel:[phone] Referring Provider: Jonel Molina [place], [address] [place] [address], [address]. tel:[phone] Family History Family Member Type Diagnosis Age At Onset No Information Payers Payer name Insurance type Covered republican ID Authoriza tion(s) No Information Social History [...]
--- OUTSIDE RECORDS SUMMARY | 2024-09-28 15:24 | XMS_ITS | Encounter Summary ---
Author Organization [employer] [facility] Address [address] [place] [address] 7 [place] [address] Care Team Providers Care It Security Consulting Director Name Role Phone Jonel Forrester MD Primary Care Provider [phone] Reason for Referral * Imaging (Routine) - Pending Review Specialty Diagnoses / Procedures Referred By Contmohan t Referred To Contact Radiology Diagnoses Other headache syndrome Procedures CT Head w/o Contrast Jonel Forrester MD [address] [place] [address] Phone: tel: fax: [address] Phone: tel: fax: Referral ID Status Reason Start Date Expiration Date V isits Requested Visits Authorized [id number] Pending Review 09/21/2024 09/21/2025 1 1 Reason for Visit * Reason Comments Abdominal CT scan follow-up Encounter Details Date Type Department Care Team ([facility] st Contact Info) Description 09/21/2024 11:15 AM EST Office Visit [facility] CHC MED & PEDS [address] [place], [place] [phone] Jonel Forrester MD [address] [place] [address] Epigastric pain (Primary Dx); Other acute pancreatitis [...] 11:30 AM EST documented in this encounter Progress Notes * Jonel Forrester MD - 09/21/2024 11:15 AM EST Subjective Patient ID: Talon Stanton is a 59 y.o. male who presents for Abdominal CT scan follow-up. HPI An abdominal CT scan was ordered for evaluation of the yellowish pustules of the umbilicus. The CT scan reports right pleural effusion with multifocal basilar atelectasis, acute pancreatitis without focal abnormality, minimal ascites, central abdominal wall skin thickening. No definite etiology of the lesions of the umbilicus found. Patient is here very concerned about the reported pancreatitis on the CT scan of the abdomen. Otherwise patient has history of hypogammaglobulinemia on Privigen IV and Bumex 1 mg 2 times a day. He also reports a worsening headache associated with swelling of his face mostly in the morning. Patient Active Problem List Diagnosis Alcohol-induced thrombocytopenia (CMS/HCC) (CMS/HCC) Bronchitis Hemoptysis Other nonspecific abnormal finding of lung field Pneumonia COPD exacerbation (CMS/HCC) Abnormal PFT Cough Hepatomegaly Splenomegaly Lymphadenopathy Thrombocytopenia (CMS/HCC) Thrush Hypogammaglobulinemia (CMS/HCC) Current Outpatient Medications on File Prior to Visit Medication Sig Dispense Refill albuterol (2.5 MG/3ML) 0.083% nebulizer solution USE 1 VIAL VIA NEBULIZER EVERY 4 TO 6 HOURS NEEDED FOR SHORTNESS OF BREATH OR WHEEZING bumetanide (Bumex) 1 MG tablet Take 1 mg by mouth in the morning. EPINEPHrine (Epipen) 0.3 MG/0.3ML injection syringe USE DIRECTED FOR ANAPHYLAXIS ibuprofen 800 MG tablet Take 1 tablet by mouth if needed in the morning, at noon, and at bedtime for pain. ipratropium-albuterol (Duo-Neb) 0.5-2.5 mg/3 mL nebulizer solution INHALE 3 ML EVERY 4 TO 6 HOURS NEEDED FOR WHEEZING Trelegy Ellipta 100-62.5-25 MCG/ACT aerosol powder Inhale 1 puff by mouth once daily Xolair 150 MG/ML injection Inject 2 syringes subcutaneously every 4 weeks No current facility-administered medications on file prior to visit. No Known Allergies Review of Systems Constitutional: Negative for appetite change, chills and diaphoresis. Eyes: Negative for pain, redness and itching. Respiratory: Negative for cough and choking. Cardiovascular: Negative for leg swelling. Gastrointestinal: Negative for anal bleeding, blood in stool and constipation. Musculoskeletal: Negative for back pain and gait problem. Objective BP 123/80 (BP Location: Left arm, Patient Position: Sitting, BP Cuff Size: Adult long) Pulse 86 Temp 97.7 ??F (36.5 ??C) (Oral) Resp 20 Ht 6' 2 (1.88 m) Wt 224 lb (102 kg) SpO2 95% BMI28.76 kg/m?? Physical Exam Constitutional: General: He is not in acute distress. Appearance: Normal appearance. He is not ill-appearing, toxic-appearing or diaphoretic. Cardiovascular: Rate and Rhythm: Normal rate. Pulmonary: Effort: Pulmonary effort is normal. Breath sounds: Decreased air movement present. Decreased breath sounds present. Neurological: General: No focal deficit present. Mental Status: He is alert. Psychiatric: Mood and Affect: Mood normal. Assessment/Plan Diagnoses and all orders for this visit: Epigastric pain - Amylase; Future - Lipase; Future - CBC auto differential; Future Patient will be contacted with the results Other acute pancreatitis without infection or necrosis Other headache syndrome Unclear etiology Doubt a neoplasm. - CT Head w/o Contrast; Future Bronchitis Follow-up with pulmonology Nasal congestion - fluticasone (Flonase) 50 MCG/ACT nasal spray; Administer 1-2 sprays into each nostril Once per day. Shake gently. Before first use, prime pump. After use, clean tip and replace cap. Flonase refill as per pt's request. documented in this encounter Plan of Treatment Upcoming Encounters Date Type Department Care Team ([facility] st Contact Info) Description 11/17/2024 4:00 PM EDT Office Visit [facility] MED & PEDS [address] [place] [address] Jonel Forrester MD [address] [place], [place] [phone] Scheduled Orders Name Type Priority Associated Diagnoses Orde r Schedule CT Head w/o Contrast Imaging Routine Other headache syndrome Expected: 09/21/2024, Expires: 09/21/2025 documented as of this encounter Procedures Procedure Name Priority Date/Time Associated Diagnosis Comments CBC WITH AUTO DIFFERENTIAL Routine 09/21/2024 12:42 PM EST Epigastric pain LIPASE Routine 09/21/2024 12:42 PM EST Epigastric pain AMYLASE Routine 09/21/2024 12:42 PM EST Epigastric pain documented in this encounter Results * (ABNORMAL) CBC auto differential (09/21/2024 12:42 PM EST) White Blood Count 5.9 4.8 - 10.8 X10*3/uL [facility] Red Blood Count 4.60 4.60 - 5.80 X10*6/uL [facility] Hemoglobin 14.6 14.0 - 18.0 g/dl [facility] Hematocrit 45.7 42.0 - 52.0 % [facility] Mean Corpuscular Volume 99.3(H) 80.0 - 98.0 fL [facility] Mean Corpuscular Hemoglobin 31.7 27.0 - 33.0 pg [facility] Mean Corpuscular HGB Conc 31.9 31.0 - 36.0 g/dl [facility] Red Cell Distribution Width 15.0 11.0 - 16.0 % [facility] Platelet Count 229 160 - 400 X10*3/uL [facility] Mean Platelet Volume 11.3 9.4 - 12.4 fL [facility] Neutrophils Percent Auto 52.1 45 - 73 % [facility] Imm Gran Pct Auto 0.5(H) 0.0 - 0.4 % [facility] Lymphocytes Percent Auto 36.5 20 - 40 % [facility] Monocytes Percent Auto 10.2 2 - 11 % [facility] Eosinophils Percent Auto 0.5 0 - 4 % [facility] Basophils Percent Auto 0.2 0 - 2 % [facility] NRBC Pct Auto 0.0 0.0 - 0.2 /100WBC [facility] Neutrophils Absolute Auto 3.1 2.0 - 8.3 x10*3/uL [facility] Imm Gran Abs Auto 0.03 0.00 - 0.03 X10*3/uL [facility] Lymphocytes Absolute Auto 2.2 1.2 - 4.9 X10*3/uL [facility] Monocytes Absolute Auto 0.6 0.1 - 1.2 X10*3/uL [facility] Eosinophils Absolute Auto 0.0 0.0 - 0.4 X10*3/uL [facility] Basophils Absolute Auto 0.0 0.0 - 0.2 X10*3/uL [facility] NRBC Abs Auto 0.000 0.0 - 0.012 X10*3/uL [facility] Blood Venous blood specimen / Unknown 09/21/2024 12:42 PM EST 09/21/2024 1:57 PM EST us Jonel Forrester MD LAB BLOOD ORDERABLES Final Result Performing Organization Address [facility]/ZIP Co de Phone Number [facility] [address] [place] [phone] * Lipase (09/21/2024 12:42 PM EST) Lipase 15 8 - 78 U/L [facility] Blood Venous blood specimen / Unknown 09/21/2024 12:42 PM EST 09/21/2024 1:57 PM EST Jonel Forrester MD LAB BLOOD ORDERABLES Final Result Performing Organization Address [facility] Co de Phone Number [facility] [address] [place] [phone] * Amylase (09/21/2024 12:42 PM EST) Amylase 43 28 - 100 U/L [facility] Blood Venous blood specimen / Unknown 09/21/2024 12:42 PM EST 09/21/2024 1:57 PM EST Jonel Forrester MD LAB BLOOD ORDERABLES Final Result Performing Organization Address City/State/[facility] Co de Phone Number [facility] [address] [place] [address] [phone] documented in this encounter Visit Diagnoses Diagnosis Epigastric pain- Primary Abdominal pain, epigastric Other acute pancreatitis without infection or necrosis Other headache syndrome Bronchitis Bronchitis, not specified as acute or chronic Nasal congestion Other diseases of nasal cavity and sinuses documented in this encounter Additional Health Concerns Assessment Noted Time PHQ-9 Depression Total Score: 10 025 2:40 PM EST documented as of this encounter Care Teams It Security Consulting Director Relationship Specialty Start Date End Date Jonel Forrester MD [address] [place] [address] PCP - General Internal Medicine 01/23/14 documented as of this encounter
--- OUTSIDE RECORDS SUMMARY | 2024-09-28 15:24 | XMS_ITS | Encounter Summary ---
Author Organization [employer] [facility] Address [address] [place] [address] [address], [place] [address] Care Team Providers Care Hydraulic Modeling Engineer Name Role Phone Jonel Forrester MD Primary Care Provider [phone] Reason for Visit * Reason Comments Med Refill Encounter Details Date Type Department Care Team ([facility] Contact Info) Description 04/06/2023 Refill [facility] MED & PEDS [address] [place] [address] Jonel Forrester MD [address] [place] [address] Oral thrush Social History Tobacco Use Types [...] Upcoming Encounters Date Type Department Care Team ([facility] Contact Info) Description 11/17/2024 4:00 PM EDT Office Visit [facility] MED & PEDS [address] [place] [address] Jonel Forrester MD [address] [place] [address] documented as of this encounter Visit Diagnoses Diagnosis Oral thrush Candidiasis of mouth documented in this encounter Additional Health Concerns Assessment Noted Time PHQ-9 Depression Total Score: 0 08/12/20 22 2:31 PM EST documented as of this encounter Care Teams Hydraulic Modeling Engineer Relationship Specialty Start Date End Date Jonel Forrester MD [address] [place] [address] PCP - General Internal Medicine 01/23/14 documented as of this encounter
--- OUTSIDE RECORDS SUMMARY | 2024-09-28 15:24 | XMS_ITS | Encounter Summary ---
Author Organization [facility] Address [address] [place] [address] Care Team Providers Care Glove Cutter Name Role Phone Jonel Forrester Primary Care Provider Encounter Details Date Type Department Care Team ([facility] Contact Info) Description 09/08/2022 Telephone [facility] [address] [place] [address] Telephone Intake, Staff Social History Tobacco Use [...] on filedocumented in this encounter Care Teams Glove Cutter Relationship Specialty Start Date End Date Jonel Forrester [address] [place] [address] PCP - General 03/05/17 documented as of this encounter
--- OUTSIDE RECORDS SUMMARY | 2024-09-28 15:24 | XMS_ITS | Encounter Summary ---
Author Organization [employer] Address [address] [facility] 7t [place] [address] Care Team Providers Care Paper Production Engineer Name Role Phone Jonel Forrester MD Primary Care Provider [phone] Encounter Details Date Type Department Care Team ([facility] st Contact Info) Description 09/22/2024 Telephone [facility] MED & PEDS [address] [place], [place] [phone] Jonel Forrester MD [address] [place] [address] Social History Tobacco Use Types Packs/Day Years [...] encounter Miscellaneous Notes * Telephone Encounter - Jonel Forrester MD - 09/22/2024 9:20 AM EST I talked to patient's Jennie on the HIP[employer] to report the results of the amylase and lipase. Both within normal range. No acute intervention recommended for now. We will monitor him clinically. Made aware that if Mr. Talon Stanton develops abdominal pain, nausea, vomiting or any gastrointestinal complaint he is to make an appointment for same-day care visit in office. documented in this encounter Plan of Treatment Upcoming Encounters Date Type Department Care Team (Late st Contact Info) Description 11/17/2024 4:00 PM EDT Office Visit [facility] MED & PEDS [address] [place] [address] Jonel Forrester MD [address] [place] [address] documented as of this encounter Visit Diagnoses Not on filedocumented in this encounter Additional Health Concerns Assessment Noted Time PHQ-9 Depression Total Score: 10 025 2:40 PM EST documented as of this encounter Care Teams Paper Production Engineer Relationship Specialty Start Date End Date Jonel Forrester MD [address] [place] [address] PCP - General Internal Medicine 01/23/14 documented as of this encounter
--- OUTSIDE RECORDS SUMMARY | 2024-09-28 15:24 | XMS_ITS | Encounter Summary ---
Author Organization [employer] Address [address] [facility] 7t [place] [address] Care Team Providers Care Telegraph Office Manager Name Role Phone Jonel Forrester MD Primary Care Provider [phone] Encounter Details Date Type Department Care Team [...] [facility] [address] [place] [address] Jonel Forrester MD [address] [place] [address] documented as of this encounter Visit Diagnoses Not on filedocumented in this encounter Additional Health Concerns Assessment Noted Time PHQ-9 Depression Total Score: 10 025 2:40 PM EST documented as of this encounter Care Teams Telegraph Office Manager Relationship Specialty Start Date End Date Jonel Forrester MD [address] [place] [address] PCP - General Internal Medicine 01/23/14 documented as of this encounter
--- OUTSIDE RECORDS SUMMARY | 2024-09-28 15:24 | XMS_ITS | Clinical Summary ---
Author Organization [facility] Address [address] [place] [address] Care Team Providers Care Rabbler Name Role Phone Jonel Forrester Primary Care Provider + [phone] Allergies No known active allergies Medications ferrous [...] complete this topic Procedures * Due to [place] [employer] law, this organization might not be sharing negative HIV tests. Procedure Name Priority Date/Time Associated Diagnosis Comments CT CHEST W CONTRAST Routine 06/12/2017 5 :07 PM EDT Cough Lymphadenopathy Hepatomegaly HEPATITIS C ANTIBODY W/REFLEX TO HCV RNA, QUANTITATIVE PCR Routine 01/26/2017 9:57 AM EDT from Last 3 Months or Most Recently Relevant to Health Maintenance Results * Due to [place] [employer] law, this organization might not be sharing [...] not known, consider bronchoscopy for further evaluation. [id number] Narrative 06/15/2017 2:[address] CHEST [...] the prior chest CT without change 139. Vxwwsegbi-ij-pli opacities are seen in the right middle lobe and right lowerlobe that were present in the prior exam and slightly more prominent inthe right upper lobe posteriorly compared to prior exam. Some of thepatchy nodules of the right upper lobe have resolved. Minimal tyet-sn-qwsuuslhsgck are seen in the left upper lobe [...] is no significant interval change in the eyga-ku-hmduihkvxnsn from end bronchial inflammation/bronchiolitis as congested inthe prior study. No consolidation or pleural effusion is noted. There isalso no change in the mild bronchiectasis of the lower lobes. If etiologyof the bronchiolitis/inflammation is not known, consider bronchoscopy forfurther evaluation. [id number] Wan Lee MD IMG CT PROCEDURES Final Result * Hepatitis C Antibody w/Reflex to HCV RNA, Quantitative PCR (01/26/2017 9:57 AM EDT) Hepatitis C Antibody NON-REACTI VE NON-REACT MAXIMINO [facility] Signal To Cut-Off 0.01 <1.00 [facility] 01/26/2017 9:57 AM EDT 01/26/2017 10:39 AM EDT Renee Moore PRINCIPLE SOFTWARE ENGINEER LAB BLOOD ORDERABLES Final Result [facility] [address] [facility] 3rd Floor, [place] [address], from Last 3 Months or Most Recently Relevant to Health Maintenance Insurance [id number] [place] [id number] HSNO/FREE CARE [facility] Advance Directives Documents on File Type Date Recorded Patient Architectural Project Captain Expl [facility] Health Care Proxy 05/29/2017 10:55 AM Care Teams Rabbler Relationship Specialty Start Date End Date Jonel Forrester [address] [place] [address] PCP - General 03/05/17
--- OUTSIDE RECORDS SUMMARY | 2024-09-28 15:24 | XMS_ITS | Encounter Summary ---
Author Organization [employer] Address [address] [facility] 7 [place] [address] Care Team Providers Care Administrative Analyst Name Role Phone Jonel Forrester MD Primary Care Provider [phone] Reason for Visit * Reason Onset Date Comments Call Back Request 08/19/2024 Encounter Details Date Type Department Care Team ([facility] st Contact Info) Description 08/19/2024 Telephone [facility] [address] [place] [address] Jonel Forrester MD [address] [place] [phone] Call Back Request Social History Tobacco Use [...] 08/22/2024 10:48 AM EST TC placed to [facility] Radiology who confirms that [...] before CT scan. Please contact Spouse at [phone]. documented in this encounter Plan of Treatment Upcoming Encounters Date Type Department Care Team (Late st Contact Info) Description 11/17/2024 4:00 PM EDT Office Visit [facility] [address] [place] [address] Jonel Forrester MD [address] [place] [address] documented as of this encounter Visit Diagnoses Not on filedocumented in this encounter Additional Health Concerns Assessment Noted Time PHQ-9 Depression Total Score: 0 08/12/20 22 2:31 PM EST documented as of this encounter Care Teams Administrative Analyst Relationship Specialty Start Date End Date Jonel Forrester MD [address] [place] [address] PCP - General Internal Medicine 01/23/14 documented as of this encounter
--- OUTSIDE RECORDS SUMMARY | 2024-09-28 15:24 | XMS_ITS | Encounter Summary ---
Author Organization [employer] Address [address] [facility] 7t [place] [address] Care Team Providers Care Beverage Inspection Machine Tender Name Role Phone Jonel Forrester MD Primary Care Provider [phone] Reason for Visit * Reason Onset Date Comments callback requested 08/25/2024 Encounter Details Date Type Department Care Team ([facility] Contact Info) Description 08/25/2024 Telephone [facility] MEDICINE [address] [place] [address] Jonel Forrester MD [address] [place] [phone] callback requested Social History Tobacco Use Types [...] before CT scan. Please contact Spouse at [phone]. documented in this encounter Plan of Treatment Upcoming Encounters Date Type Department Care Team (Late st Contact Info) Description 11/17/2024 4:00 PM EDT Office Visit [facility] MED & PEDS [address] [place], [place] [phone] Jonel Forrester MD [address] [place], [place] [phone] documented as of this encounter Visit Diagnoses Not on filedocumented in this encounter Additional Health Concerns Assessment Noted Time PHQ-9 Depression Total Score: 0 08/12/20 22 2:31 PM EST documented as of this encounter Care Teams Beverage Inspection Machine Tender Relationship Specialty Start Date End Date Jonel Forrester MD [address] [place] [address] PCP - General Internal Medicine 01/23/14 documented as of this encounter
--- OUTSIDE RECORDS SUMMARY | 2024-09-28 15:24 | XMS_ITS | Encounter Summary ---
Author Organization [employer] Address [address] [facility] 7t [place] [address] Care Team Providers Care Wood Heel Finisher Name Role Phone Jonel Forrester MD Primary Care Provider [phone] Encounter Details Date Type Department Care Team (Late st Contact Info) Description 06/11/2023 Abstract [facility] MEDICINE [address] [place] [address] Jonel Forrester MD [address] [place] [address] Social History Tobacco Use Types Packs/Day Years [...] 4:00 PM EDT Office Visit [facility] MED & PEDS [address] [place] [address] Jonel Forrester MD [address] [place] [address] documented as of this encounter Visit Diagnoses Not on filedocumented in this encounter Additional Health Concerns Assessment Noted Time PHQ-9 Depression Total Score: 0 08/12/20 22 2:31 PM EST documented as of this encounter Care Teams Wood Heel Finisher Relationship Specialty Start Date End Date Jonel Forrester MD [address] [place] [address] PCP - General Internal Medicine 01/23/14 documented as of this encounter
--- OUTSIDE RECORDS SUMMARY | 2024-09-28 15:24 | XMS_ITS | Encounter Summary ---
Author Organization [employer] Address [address] [facility] 7t [place] [address] Care Team Providers Care Pattern And Chain Maker Name Role Phone Jonel Forrester MD Primary Care Provider [phone] Reason for Visit * Reason Onset Date Comments Med Refill 07/01/2023 Encounter Details Date Type Department Care Team ([facility] st Contact Info) Description 07/01/2023 Telephone [facility] MEDICINE [address] [place] [address] Jonel Forrester MD [address] [place] [address] Med Refill Social History Tobacco Use Types [...] Upcoming Encounters Date Type Department Care Team ([facility] st Contact Info) Description 11/17/2024 4:00 PM EDT Office Visit [facility] MED & PEDS [address] [place] [address] Jonel Forrester MD [address] [place] [address] documented as of this encounter Visit Diagnoses Not on filedocumented in this encounter Additional Health Concerns Assessment Noted Time PHQ-9 Depression Total Score: 0 08/12/20 22 2:31 PM EST documented as of this encounter Care Teams Pattern And Chain Maker Relationship Specialty Start Date End Date Jonel Forrester MD [address] [place] [address] PCP - General Internal Medicine 01/23/14 documented as of this encounter
--- OUTSIDE RECORDS SUMMARY | 2024-09-28 15:24 | XMS_ITS | Encounter Summary ---
Author Organization [employer] Address [address] [facility] 7 [place] [address] Care Team Providers Care Web Site Admin Name Role Phone Jonel Forrester MD Primary Care Provider [phone] Reason for Visit * Reason Onset Date Comments Nurse Triage 08/29/2024 Encounter Details Date Type Department Care Team ([facility] st Contact Info) Description 08/29/2024 Telephone [facility] MED & PEDS [address] [place] [address] Jonel Forrester MD [address] [place] [address] Nurse Triage Social History Tobacco Use Types [...] - 08/29/2024 3:55 PM EST TC to [place] [facility]-needs to be NPO by 0600. TC to [place] lab- no fasting needed prior to labs. [...] eyes and is concern . Patient speaks Palauan. Advised triage nurse will call patient back. documented in this encounter Plan of Treatment Upcoming Encounters Date Type Department Care Team (Late st Contact Info) Description 11/17/2024 4:00 PM EDT Office Visit [facility] MED & PEDS [address] [place] [address] Jonel Forrester MD [address] [place] [address] documented as of this encounter Visit Diagnoses Not on filedocumented in this encounter Additional Health Concerns Assessment Noted Time PHQ-9 Depression Total Score: 0 08/12/20 22 2:31 PM EST documented as of this encounter Care Teams Web Site Admin Relationship Specialty Start Date End Date Jonel Forrester MD [address] [place] [address] PCP - General Internal Medicine 01/23/14 documented as of this encounter
== END 2024-09-28 14:39 | disposition home or self-care (01) ==
PROVIDERS: PCP Internal Medicine; Visit Provider Internal Medicine Pulmonary Disease
DX: D80.1 Nonfamilial hypogammaglobulinemia (principal); J44.9 Chronic obstructive pulmonary disease, unspecified; R05.9 Cough, unspecified
CPT/HCPCS: 99214

== ENCOUNTER → 2024-10-16 20:30 | Outpatient (BNV) | payer OTHER, SELFPAY | PROVIDERS: PCP Internal Medicine; Visit Provider Psychiatry & Neurology Neurology | DX: G47.10 Hypersomnia, unspecified (principal); R06.83 Snoring | CPT/HCPCS: 95810 ==

== ENCOUNTER → 2024-10-16 20:30 | Outpatient (REF) | payer OTHER, SELFPAY ==
--- OUTSIDE RECORDS SUMMARY | 2024-10-16 21:12 | XMS_ITS | Clinical Summary ---
Author Organization [facility] Address [address] [place] [address] Care Team Providers Care Movement Education Specialist Name Role Phone Jonel Forrester Primary Care Provider + [phone] Allergies No known active allergies Medications ferrous [...] Vaccines (1 of 2) 02/24/2014 Pneumococcal Vaccine: 50+ Years (2 of 2 [...] complete this topic Procedures * Due to [place] state law, this organization might not be sharing negative HIV tests. Procedure Name Priority Date/Time Associated Diagnosis Comments CT CHEST W CONTRAST Routine 06/12/2017 5 :07 PM EDT Cough Lymphadenopathy Hepatomegaly HEPATITIS C ANTIBODY W/REFLEX TO HCV RNA, QUANTITATIVE PCR Routine 01/26/2017 9:57 AM EDT from Last 3 Months or Most Recently Relevant to Health Maintenance Results * Due to [place] [employer] law, this organization might not be sharing [...] not known, consider bronchoscopy for further evaluation. [id number] Narrative 06/15/2017 2:[address] CHEST [...] is seen in the right middle lobe 180 and also present in the prior chest CT without change 4/139. ??Small tree-in-bud opacities are seen in the [...] the prior chest CT without change 139. Tczipqtpz-dl-svz opacities are seen in the right middle lobe and right lowerlobe that were present in the prior exam and slightly more prominent inthe right upper lobe posteriorly compared to prior exam. Some of thepatchy nodules of the right upper lobe have resolved. Minimal gntj-wo-eyvdnsnwdqkb are seen in the left upper lobe [...] is no significant interval change in the naic-qk-rtbtlzbzdfjr from end bronchial inflammation/bronchiolitis as congested inthe prior study. No consolidation or pleural effusion is noted. There isalso no change in the mild bronchiectasis of the lower lobes. If etiologyof the bronchiolitis/inflammation is not known, consider bronchoscopy forfurther evaluation. [id number] Wan Lee MD IMG CT PROCEDURES Final Result * Hepatitis C Antibody w/Reflex to HCV RNA, Quantitative PCR (01/26/2017 9:57 AM EDT) Hepatitis C Antibody NON-REACTI VE NON-REACT MAXIMINO [facility] Signal To Cut-Off 0.01 <1.00 [facility] 01/26/2017 9:57 AM EDT 01/26/2017 10:39 AM EDT Renee Moore GRID OPERATOR LAB BLOOD ORDERABLES Final Result JULIA AGUIRRE [address] [facility] 3rd Floor, [place] [address], [place] [phone] from Last 3 Months or Most Recently Relevant to Health Maintenance Insurance HSNO/FREE CARE [facility] Advance Directives Documents on File Type Date Recorded Patient Office Auditor Expl [facility] Care Proxy 05/29/2017 10:55 AM Care Teams Movement Education Specialist Relationship Specialty Start Date End Date Jonel Forrester [address] [place] [address] PCP - General 03/05/17
--- OUTSIDE RECORDS SUMMARY | 2024-10-16 21:12 | XMS_ITS | Referral Summary ---
Author Organization [facility] Address [address] [place] [address] Care Team Providers Care Cartridge Feeder Name Role Phone Jonel Forrester Primary Care Provider + [phone] Allergies No known active allergies Medications ferrous [...] Not on file Procedures * Due to [place] [employer] law, this organization might not be sharing negative HIV tests. Procedure Name Priority Date/Time Associated Diagnosis Comments CT CHEST W CONTRAST Routine 06/12/2017 5 :07 PM EDT Cough Lymphadenopathy Hepatomegaly HEPATITIS C ANTIBODY W/REFLEX TO HCV RNA, QUANTITATIVE PCR Routine 01/26/2017 9:57 AM EDT from Last 3 Months or Most Recently Relevant to Health Maintenance Results * Due to [place] [employer] law, this organization might not be sharing [...] not known, consider bronchoscopy for further evaluation. [id number] Narrative 06/15/2017 2:[address] CHEST [...] the prior chest CT without change 139. Vffjeevye-ll-nyh opacities are seen in the right middle lobe and right lowerlobe that were present in the prior exam and slightly more prominent inthe right upper lobe posteriorly compared to prior exam. Some of thepatchy nodules of the right upper lobe have resolved. Minimal ypuv-mw-wyepfvtpsgsr are seen in the left upper lobe [...] is no significant interval change in the ocii-sn-erhscnrpesjt from end bronchial inflammation/bronchiolitis as congested inthe prior study. No consolidation or pleural effusion is noted. There isalso no change in the mild bronchiectasis of the lower lobes. If etiologyof the bronchiolitis/inflammation is not known, consider bronchoscopy forfurther evaluation. [id number] Wan Lee MD IMG CT PROCEDURES Final Result * Hepatitis C Antibody w/Reflex to HCV RNA, Quantitative PCR (01/26/2017 9:57 AM EDT) Hepatitis C Antibody NON-REACTI VE NON-REACT MAXIMINO [facility] Signal To Cut-Off 0.01 <1.00 [facility] 01/26/2017 9:57 AM EDT 01/26/2017 10:39 AM EDT Renee Moore SHOT HOLE DRILLER LAB BLOOD ORDERABLES Final Result JULIA AGUIRRE [address] [facility] 3rd Floor, [place] [address], [place] [phone] from Last 3 Months or Most Recently Relevant to Health Maintenance Insurance HSNO/FREE CARE Advance Directives Documents on File Type Date Recorded Patient Head Of Science Expl [facility] Care Proxy 05/29/2017 10:55 AM Care Teams Cartridge Feeder Relationship Specialty Start Date End Date Jonel Forrester [address] [place] [address] PCP - General 03/05/17
--- OUTSIDE RECORDS SUMMARY | 2024-10-16 21:12 | XMS_ITS | Encounter Summary ---
Author Organization [employer] Address [address] [facility] 7t [place] [address] Care Team Providers Care Screw Machine Set Up Operator Name Role Phone Jonel Forrester MD Primary Care Provider [phone] Reason for Visit * Reason Onset Date Comments Med Refill 07/01/2023 Encounter Details Date Type Department Care Team ([facility] st Contact Info) Description 07/01/2023 Telephone [facility] MEDICINE [address] [place] [address] Jonel Forrester MD [address] [place] [phone] Med Refill Social History Tobacco Use Types [...] Upcoming Encounters Date Type Department Care Team ([facility] st Contact Info) Description 11/17/2024 4:00 PM EDT Office Visit [facility] MED & PEDS [address] [place] [address] Jonel Forrester MD [address] [place] [address] documented as of this encounter Visit Diagnoses Not on filedocumented in this encounter Additional Health Concerns Assessment Noted Time PHQ-9 Depression Total Score: 0 08/12/20 22 2:31 PM EST documented as of this encounter Care Teams Screw Machine Set Up Operator Relationship Specialty Start Date End Date Jonel Forrester MD [address] [place] [address] PCP - General Internal Medicine 01/23/14 documented as of this encounter
--- OUTSIDE RECORDS SUMMARY | 2024-10-16 21:12 | XMS_ITS | Encounter Summary ---
Author Organization [email or web address] [facility] Address [address] [place] [address] 7 [place] [address] Care Team Providers Care Telecommunications Field Technician Name Role Phone Jonel Forrester MD Primary Care Provider [phone] Reason for Referral * Imaging (Routine) - Pending Review Specialty Diagnoses / Procedures Referred By Contmohan t Referred To Contact Radiology Diagnoses Other headache syndrome Procedures CT Head w/o Contrast Jonel Forrester MD [address] [place] [address] Phone: tel: fax: [address] Phone: tel: fax: Referral ID Status Reason Start Date Expiration Date V isits Requested Visits Authorized [id number] Pending Review 09/21/2024 09/21/2025 1 1 Reason for Visit * Reason Comments Abdominal CT scan follow-up Encounter Details Date Type Department Care Team ([facility] st Contact Info) Description 09/21/2024 11:15 AM EST Office Visit [facility] MED & PEDS [address] [place], [place] [phone] Jonel Forrester MD [address] [place] [address] Epigastric pain (Primary Dx); Other acute pancreatitis [...] Upcoming Encounters Date Type Department Care Team ([facility] st Contact Info) Description 11/17/2024 4:00 PM EDT Office Visit [facility] MED & PEDS [address] [place] [address] Jonel Forrester MD [address] [place], [place] [phone] Scheduled Orders Name Type Priority Associated Diagnoses [...] Blood Count 5.9 4.8 - 10.8 X10*3/uL [facility] Red Blood Count 4.60 4.60 - 5.80 X10*6/uL [facility] Hemoglobin 14.6 14.0 - 18.0 g/dl [facility] Hematocrit 45.7 42.0 - 52.0 % [facility] Mean Corpuscular Volume 99.3(H) 80.0 - 98.0 fL [facility] Mean Corpuscular Hemoglobin 31.7 27.0 - 33.0 pg [facility] Mean Corpuscular HGB Conc 31.9 31.0 - 36.0 g/dl [facility] Red Cell Distribution Width 15.0 11.0 - 16.0 % [facility] Platelet Count 229 160 - 400 X10*3/uL [facility] Mean Platelet Volume 11.3 9.4 - 12.4 fL [facility] Neutrophils Percent Auto 52.1 45 - 73 % [facility] Imm Gran Pct Auto 0.5(H) 0.0 - 0.4 % [facility] Lymphocytes Percent Auto 36.5 20 - 40 % [facility] Monocytes Percent Auto 10.2 2 - 11 % [facility] Eosinophils Percent Auto 0.5 0 - 4 % [facility] Basophils Percent Auto 0.2 0 - 2 % [facility] NRBC Pct Auto 0.0 0.0 - 0.2 /100WBC [facility] Neutrophils Absolute Auto 3.1 2.0 - 8.3 x10*3/uL [facility] Imm Gran Abs Auto 0.03 0.00 - 0.03 X10*3/uL [facility] Lymphocytes Absolute Auto 2.2 1.2 - 4.9 X10*3/uL [facility] Monocytes Absolute Auto 0.6 0.1 - 1.2 X10*3/uL [facility] Eosinophils Absolute Auto 0.0 0.0 - 0.4 X10*3/uL [facility] Basophils Absolute Auto 0.0 0.0 - 0.2 X10*3/uL [facility] NRBC Abs Auto 0.000 0.0 - 0.012 X10*3/uL [facility] Blood Venous blood specimen / Unknown 09/21/2024 12:42 PM EST 09/21/2024 1:57 PM EST us Jonel Forrester MD LAB BLOOD ORDERABLES Final Result Performing Organization Address [facility]/ZIP Co de Phone Number [facility] [address] [place] [phone] * Lipase (09/21/2024 12:42 PM EST) Lipase 15 8 - 78 U/L [facility] Blood Venous blood specimen / Unknown 09/21/2024 12:42 PM EST 09/21/2024 1:57 PM EST Jonel Forrester MD LAB BLOOD ORDERABLES Final Result Performing Organization Address [facility] Co de Phone Number [facility] [address] [place] [phone] * Amylase (09/21/2024 12:42 PM EST) Amylase 43 28 - 100 U/L [facility] Blood Venous blood specimen / Unknown 09/21/2024 12:42 PM EST 09/21/2024 1:57 PM EST Jonel Forrester MD LAB BLOOD ORDERABLES Final Result Performing Organization Address City/State/[facility] Co de Phone Number [facility] [address] [place] [address] [phone] documented in this encounter Visit Diagnoses [...] documented as of this encounter Care Teams Telecommunications Field Technician Relationship Specialty Start Date End Date Jonel Forrester MD [address] [place] [address] PCP - General Internal Medicine 01/23/14 documented as of this encounter
--- OUTSIDE RECORDS SUMMARY | 2024-10-16 21:12 | XMS_ITS | Encounter Summary ---
Author Organization [employer] Address [address] [facility] 7t [place] [address] Care Team Providers Care Mosaic Tile Maker Name Role Phone Jonel Forrester MD Primary Care Provider [phone] Reason for Visit * Reason Onset Date Comments Referral 07/26/2024 Encounter Details Date Type Department Care Team ([facility] st Contact Info) Description 07/26/2024 Telephone [facility] MEDICINE [address] [place] [address] Jonel Forrester MD [address] [place] [address] Referral Social History Tobacco Use Types Packs/Day [...] ask PCP a new order. Callback number [phone] documented in this encounter Plan of Treatment Upcoming Encounters Date Type Department Care Team (Late st Contact Info) Description 11/17/2024 4:00 PM EDT Office Visit [facility] MED & PEDS [address] [place] [address] Jonel Forrester MD [address] [place] [address] documented as of this encounter Visit Diagnoses Not on filedocumented in this encounter Additional Health Concerns Assessment Noted Time PHQ-9 Depression Total Score: 0 08/12/20 22 2:31 PM EST documented as of this encounter Care Teams Mosaic Tile Maker Relationship Specialty Start Date End Date Jonel Forrester MD [address] [place] [address] PCP - General Internal Medicine 01/23/14 documented as of this encounter
--- OUTSIDE RECORDS SUMMARY | 2024-10-16 21:12 | XMS_ITS | Encounter Summary ---
Author Organization [facility] Address [address] [place] [address] Care Team Providers Care Tanning Consultant Name Role Phone Jonel Forrester Primary Care Provider [phone] Encounter Details Date Type Department Care Team ([facility] Contact Info) Description 09/08/2022 Telephone [facility] [address] [place] [phone] Telephone Intake, Staff Social History Tobacco Use [...] on filedocumented in this encounter Care Teams Tanning Consultant Relationship Specialty Start Date End Date Jonel Forrester [address] [place] [address] PCP - General 03/05/17 documented as of this encounter
--- OUTSIDE RECORDS SUMMARY | 2024-10-16 21:12 | XMS_ITS | Encounter Summary ---
Author Organization [employer] Address 75 [facility] 7t [place] [address] Care Team Providers Care Production Associate Name Role Phone Jonel Forrester MD Primary Care Provider [phone] Encounter Details Date Type Department Care Team (Late st Contact Info) Description 08/22/2024 Orders Only [facility] MED & PEDS [address] [place], [place] [phone] Jonel Forrester MD [address] [place] [address] Thrombocytopenia ([facility]) (Primary Dx) Social History Tobacco Use Types [...] Description 11/17/2024 4:00 PM EDT Office Visit [facility] MED & PEDS [address] [place], [place] [phone] Jonel Forrester MD [address] [place], [place] [phone] documented as of this encounter Procedures Procedure Name Priority Date/Time Associated Diagnosis Comments CREATININE, SERUM Routine 09/07/2024 11: 09 AM EST Thrombocytopenia (CMS/HCC) UREA NITROGEN (BUN) Routine 09/07/2024 1 1:09 AM EST Thrombocytopenia (CMS/HCC) documented in this encounter Results * Creatinine, Serum (09/07/2024 11:09 AM EST) Creatinine, Serum 0.88 0.5 - 1.4 mg/dL [facility] Estimated Glomerular Filt Rate >60 [facility] Comment:Chronic Kidney Disea se: Estimated GFR < 60 mL/min/1.53e0Jxdnps Kidney Disease: Estimated GFR < 15 mL/min/1.73m2 Blood Venous blood specimen / Unknown 09/07/2024 11:09 AM EST 09/07/2024 11:09 AM EST us Jonel Forrester MD LAB BLOOD ORDERABLES Final Result [facility] [address] [place], [place] [phone] * (ABNORMAL) BUN (Blood Urea Nitrogen) (09/07/2024 11:09 AM EST) Urea Nitrogen (BUN) 18(H) 9 - 16 mg/dL [facility] Blood Venous blood specimen / Unknown 09/07/2024 11:09 AM EST 09/07/2024 11:09 AM EST Jonel Forrester MD LAB BLOOD ORDERABLES Final Result [facility] [address] [place] [address] [phone] documented in this encounter Visit Diagnoses Diagnosis Thrombocytopenia (CMS/HCC)- Primary Unspecified thrombocytopenia documented in this encounter Additional Health Concerns Assessment Noted Time PHQ-9 Depression Total Score: 0 08/12/20 22 2:31 PM EST documented as of this encounter Care Teams Production Associate Relationship Specialty Start Date End Date Jonel Forrester MD [address] [place] [phone] PCP - General Internal Medicine 01/23/14 documented as of this encounter
--- OUTSIDE RECORDS SUMMARY | 2024-10-16 21:12 | XMS_ITS | Encounter Summary ---
Author Organization [employer] Address [address] [facility] 7t [place] [address] Care Team Providers Care Bell Attendant Name Role Phone Jonel Forrester MD Primary Care Provider [phone] Encounter Details Date Type Department Care Team [...] Office Visit [facility] MED & PEDS [address] [place] [address] Jonel Forrester MD [address] [place] [address] documented as of this encounter Visit Diagnoses Not on filedocumented in this encounter Additional Health Concerns Assessment Noted Time PHQ-9 Depression Total Score: 10 025 2:40 PM EST documented as of this encounter Care Teams Bell Attendant Relationship Specialty Start Date End Date Jonel Forrester MD [address] [place] [address] PCP - General Internal Medicine 01/23/14 documented as of this encounter
--- OUTSIDE RECORDS SUMMARY | 2024-10-16 21:12 | XMS_ITS | Encounter Summary ---
Author Organization [employer] Address [address] [facility] 7t [place] [address] Care Team Providers Care Pigs Feet Finisher Name Role Phone Jonel Forrester MD Primary Care Provider [phone] Encounter Details Date Type Department Care Team (Late st Contact Info) Description 06/17/2023 Abstract [facility] MEDICINE [address] [place] [address] Jonel Forrester MD [address] [place] [address] Social History Tobacco Use Types Packs/Day Years [...] 4:00 PM EDT Office Visit [facility] MED & PEDS [address] [place] [address] Jonel Forrester MD [address] [place] [address] documented as of this encounter Procedures Procedure [...] documented as of this encounter Care Teams Pigs Feet Finisher Relationship Specialty Start Date End Date Jonel Forrester MD [address] [place] [address] PCP - General Internal Medicine 01/23/14 documented as of this encounter
--- OUTSIDE RECORDS SUMMARY | 2024-10-16 21:12 | XMS_ITS | Encounter Summary ---
Author Organization [employer] Address [address] [facility] 7t [place] [address] Care Team Providers Care Tape Calender Name Role Phone Jonel Forrester MD Primary Care Provider [phone]- [phone] Encounter Details Date Type Department Care Team (Late Contact Info) Description 09/11/[address] [facility] MEDICINE [address] [place] [address] Jonel Forrester MD [address] [place] [address] Hemoptysis (Primary Dx); Pneumonia of both lungs [...] 11/17/2024 4:00 PM EDT Office Visit [facility] MED & PEDS [address] [place] [address] Jonel Forrester MD [address] [place] [address] documented as of this encounter Visit Diagnoses Diagnosis Hemoptysis- Primary Pneumonia of both lungs due to infectious organism, unspecified part of lung documented in this encounter Additional Health Concerns Assessment Noted Time PHQ-9 Depression Total Score: 0 08/12/20 22 2:31 PM EST documented as of this encounter Care Teams Tape Calender Relationship Specialty Start Date End Date Jonel Forrester MD [address] [place] [address] PCP - General Internal Medicine 01/23/14 documented as of this encounter
--- OUTSIDE RECORDS SUMMARY | 2024-10-16 21:12 | XMS_ITS | Clinical Summary ---
Author Organization [employer] Address [address] [facility] 7t [place] [address] Care Team Providers Care Senior Operator Name Role Phone Jonel Forrester MD Primary Care Provider [phone]- [phone] Allergies No known active allergies Medications ipratropium-al [...] (07/05/2024 4:58 PM EST): To follow-up with [facility] as scheduled. No acute intervention done today. 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 Encounters Date Type Department Care Team Description 09/22/2024 Telephone [facility] MED & PEDS [address] [place] [address] Jonel Forrester MD 09/21/2024 11:15 AM EST Office Visit [facility] MED & PEDS [address] [place] [address] Jonel Forrester MD Epigastric pain (Primary Dx); Other acute pancreatitis without infection or necrosis; Other headache syndrome; Bronchitis; Nasal congestion 09/21/2024 Travel 08/29/2024 Telephone [facility] MED & PEDS [address] [place] [address] Jonel Forrester MD Nurse Triage 08/26/2024 Refill [facility] MED & PEDS [address] [place] [address] Jonel Forrester MD Thrombocytopenia ([facility]/HCC) 08/25/2024 Telephone [facility] MEDICINE [address] [place] [address] Jonel Forrester MD callback requested 08/22/2024 Orders Only [facility] MED & PEDS [address] [place] [address] Jonel Forrester MD Thrombocytopenia ([facility]/HCC) (Primary Dx) 08/19/2024 Telephone [facility] MEDICINE [address] [place] [address] Jonel Forrester MD Call Back Request 07/29/2024 Orders Only [facility] MED & PEDS [address] [place] [address] Jonel Forrester MD Steatocystoma (Primary Dx) 07/26/2024 Telephone [facility] MEDICINE [address] [place] [address] Jonle Forrester MD Referral 07/26/2024 Telephone [facility] [address] [place] [address] ABDOMEN 07/25/2024 Telephone [facility] MED & PEDS [address] [place], [place] [phone] Jonel Forrester MD Referral; CT scan order from Last 3 Months Immunizations Name Administration [...] 11/17/2024 4:00 PM EDT Office Visit [facility] MED & PEDS [address] [place] [address] Jonel Forrester MD [address] [place] [address] Health Maintenance Due Date Last Done Comments [...] VIEWS Routine 08/15/2024 11:1 9 AM EST LIPID PANEL, STANDARD Routine 08/24/2023 10:22 AM EST Splenomegaly HEPATITIS C ANTIBODY Routine 01/14/2023 3:47 PM EDT HIV ANTIBODY/ANTIGEN ([facility]) Routine 01/14/2023 3:47 PM EDT HM COLONOSCOPY Routine 06/13/2014 from Last 3 Months or Most Recently Relevant to Health Maintenance Results * (ABNORMAL) CBC auto differential (09/21/2024 12:42 PM EST) White Blood Count 5.9 4.8 - 10.8 X10*3/uL [facility] Red Blood Count 4.60 4.60 - 5.80 X10*6/uL [facility] Hemoglobin 14.6 14.0 - 18.0 g/dl [facility] Hematocrit 45.7 42.0 - 52.0 % [facility] Mean Corpuscular Volume 99.3(H) 80.0 - 98.0 fL [facility] Mean Corpuscular Hemoglobin 31.7 27.0 - 33.0 pg [facility] Mean Corpuscular HGB Conc 31.9 31.0 - 36.0 g/dl [facility] Red Cell Distribution Width 15.0 11.0 - 16.0 % [facility] Platelet Count 229 160 - 400 X10*3/uL [facility] Mean Platelet Volume 11.3 9.4 - 12.4 fL [facility] Neutrophils Percent Auto 52.1 45 - 73 % [facility] Imm Gran Pct Auto 0.5(H) 0.0 - 0.4 % [facility] Lymphocytes Percent Auto 36.5 20 - 40 % [facility] Monocytes Percent Auto 10.2 2 - 11 % [facility] Eosinophils Percent Auto 0.5 0 - 4 % [facility] Basophils Percent Auto 0.2 0 - 2 % [facility] NRBC Pct Auto 0.0 0.0 - 0.2 /100WBC [facility] Neutrophils Absolute Auto 3.1 2.0 - 8.3 x10*3/uL [facility] Imm Gran Abs Auto 0.03 0.00 - 0.03 X10*3/uL [facility] Lymphocytes Absolute Auto 2.2 1.2 - 4.9 X10*3/uL [facility] Monocytes Absolute Auto 0.6 0.1 - 1.2 X10*3/uL [facility] Eosinophils Absolute Auto 0.0 0.0 - 0.4 X10*3/uL [facility] Basophils Absolute Auto 0.0 0.0 - 0.2 X10*3/uL [facility] NRBC Abs Auto 0.000 0.0 - 0.012 X10*3/uL [facility] Blood Venous blood specimen / Unknown 09/21/2024 12:42 PM EST 09/21/2024 1:57 PM EST us Jonel Forrester MD LAB BLOOD ORDERABLES Final Result Performing Organization Address City/[facility]/ZIP Co de Phone Number [facility] [address] [place] [phone] * Lipase (09/21/2024 12:42 PM EST) Lipase 15 8 - 78 U/L [facility] Blood Venous blood specimen / Unknown 09/21/2024 12:42 PM EST 09/21/2024 1:57 PM EST Jonel Forrester MD LAB BLOOD ORDERABLES Final Result Performing Organization Address City/[facility]/ZIP Co de Phone Number [facility] [address] [place] [address] [phone] * Amylase (09/21/2024 12:42 PM EST) Amylase 43 28 - 100 U/L [facility] Blood Venous blood specimen / Unknown 09/21/2024 12:42 PM EST 09/21/2024 1:57 PM EST us Jonel Forrester MD LAB BLOOD ORDERABLES Final Result [facility] [address] [place] [address] [phone] * CT Abdomen Pelvis w/ Contrast (09/13/2024 9:07 PM EST) Anatomical Region Laterality Modality Body, Pelvis, Abdomen Computed T omography 09/13/2024 9:07 PM EST Narrative 09/13/2024 9:09 PM EST ? [facility] ?[address] ?[place] [address] ? CT Scan Report ? Signed ? Patient: Talon Stanton ?MR#: [id number] ?? [id number] ? : 1965 ?Acct:[id number] ? Age/Sex: 59 / M ?ADM Date: 09/13/24 ? Loc: HO.CT ? Attending Dr: Jonel Forrester MD ? Ordering Physician: Jonel Forrester MD ?? Date of Service: 09/13/24 ?? Procedure(s): CT abdomen pelvis w IV con ?? Accession Number(s): [id number] ? cc: Jonel Forrester MD ? Report Number: ?? [id number]: Total DLP = ??714.00 mGy-cm ? CLINICAL [...] by Cameron Pandya MD in OV> ? 01/28/25 2109 ? DD/ 06 ? TD/TT: 09/13/242106 ? Residential Advisor: ? Procedure Note Carole Sanon - 09/13/[address] [place] [address] [address] Scan Report Signed Patient: Megan Stanton#: [id number] : 1965Acct:[id number] Age/Sex: 59 / MADM Date: 09/13/24 Loc: HO.CT Attending Dr: Jonel Forrester MD Ordering Physician: Jonel Forrester MD Date of Service: 09/13/24 Procedure(s): CT abdomen pelvis w IV con Accession Number(s): [id number] cc: Jonel Forrester MD Report Number: [id number]: Total DLP = 714.00 mGy-cm CLINICAL HISTORY: [...] in OV> 09/13/242108 DD/ 06 TD/TT: 09/13/242106 Residential Advisor: us Jonel Forrester MD IMG CT PROCEDURES Final Res ult * Creatinine, Serum (09/07/2024 11:09 AM EST) Creatinine, Serum 0.88 0.5 - 1.4 mg/dL [facility] Estimated Glomerular Filt Rate >60 [facility] Comment:Chronic Kidney Disea se: Estimated GFR < 60 mL/min/1.21k0Xhoqem Kidney Disease: Estimated GFR < 15 mL/min/1.73m2 Blood Venous blood specimen / Unknown 09/07/2024 11:09 AM EST 09/07/2024 11:09 AM EST us Jonel Forrester MD LAB BLOOD ORDERABLES Final Result [facility] [address] [place] [phone] * (ABNORMAL) BUN (Blood Urea Nitrogen) (09/07/2024 11:09 AM EST) Urea Nitrogen (BUN) 18(H) 9 - 16 mg/dL [facility] Blood Venous blood specimen / Unknown 09/07/2024 11:09 AM EST 09/07/2024 11:09 AM EST us Jonel Forrester MD LAB BLOOD ORDERABLES Final Result [facility] [address] [place] [address] [phone] * XR Chest 2 Views (08/15/2024 11:19 AM EST) Anatomical Region Laterality Modality Chest Radiographic Angelique ging 08/15/2024 11:1 9 AM EST Narrative 08/15/2024 2:27 PM EST ? [facility] ?[address] ?[place] [address] ?XRay Report ? Signed ? Patient: Talon Stanton ?MR#: [id number] ?? [id number] ? : 1965 ?Acct:[id number] ? Age/Sex: 59 / M ?ADM Date: 08/15/24 ? Loc: HO.XRAY ? Attending Dr: Ingrid Wahl RESEARCH AND DEVELOPMENT RESEARCHER ? Ordering Physician: Ingrid Wahl NP ?? Date of Service: 08/15/24 ?? Procedure(s): XR chest 2V ?? Accession Number(s): [id number] ? cc: Jonel Forrester MD; Ingrid Wahl [...] DD/ 1119 ? TD/TT: 08/15/24 1125 ? Residential Advisor: MSM ? Procedure Note Jourdanmeloniesimonjael, Image - 08/15/2024 [place] [address] XRay Report Signed Patient: Talon StantonMR#: [id number] : 1965Acct:[id number] Age/Sex: 59 / MADM Date: 08/15/24 Loc: RENATO Attending Dr: Ingrid Wahl NP Ordering Physician: Ingrid Wahl NP Date of Service: 08/15/24 Procedure(s): XR chest 2V Accession Number(s): [id number] cc: Jonel Forrester MD; Ingrid Wahl NP [...] 08/15/24 1424 DD/ 1119 TD/TT: 08/15/24 1125 Residential Advisor: GERONIMO [facility] External Provider IMG XR PROCEDURES Final Result * (ABNORMAL) Lipid Panel, Standard (08/24/2023 10:22 AM EST) Triglycerides 88 <150 mg/dL [facility] Comment:Desirable Triglyceri de: less than 150 mg/dLBorderline High Triglyceride 150-199 mg/dLHigh Triglyceride: 200-499 mg/dLVery High Triglyceride: greater than or equal to 5OO mg/dL Cholesterol 204(H) <200 mg/dL [facility] Comment:Desirable Cholestero l: less than 200 mg/dLBorderline High Cholesterol: 200-239 mg/dLHigh Cholesterol: greater than 239 mg/dL LDL Cholesterol Calculated 137(H) <100 mg/dL [facility] Comment:Desirable LDL: less than 100 mg/dLNear Optimal/Above Optimal LDL: 110- 129 mg/dLBorderline High LDL: 130-159 mg/dLHigh LDL: 160-189 mg/dLVery High LDL: greater than or equal to 190 mg/dL HDL Cholesterol 50 >40 mg/dL [facility] Comment:Desirable HDL: great er than 40 mg/dL Note: This HDL assay may give artificially low results in patients with liver disease. Blood Venous blood specimen / Unknown 08/24/2023 10:22 AM EST 08/24/2023 10:22 AM EST Jonel Forrester MD LAB BLOOD ORDERABLES Final Result [facility] [address] [place] [address] [phone] * Hepatitis C Ab (01/14/2023 3:47 PM EDT) Hepatitis C Antibody Nonreactive Nonreactive [facility] Comment:Antibodies to HCV no t detected; does not exclude early acuteHCV infection. 01/14/2023 3:47 PM EDT 01/14/2023 3:48 PM EDT [facility] External Provider LAB BLO OD ORDERABLES Final Result Performing Organization Address [facility]/ZIP Co de Phone Number [facility] [address] [place] [address] [phone] * HIV Ab/Ag ([facility]) (01/14/2023 3:47 PM EDT) [facility] HIV AB/AG Nonreactive Nonreactive [facility] Comment:HIV-1 p24 Ag and/or HIV-1/HIV-2 Ab not detected.A test result that is nonreactive does not exclude thepossibility of exposure to or infection with HIV-1 and/orHIV-2. Nonreactive results in this assay for individualswith prior exposure to HIV-1 and/or HIV-2 may be due toantigen and antibody levels that are below the limit ofdetection of this assay.The [employer] HIV Ag/Ab Combo assay result andsupplemental assay results should be interpreted inconjunction with the patient's clinical presentation,history and other laboratory results. If the results areinconsistent with clinical evidence, additional testing issuggested to confirm the result. 01/14/2023 3:47 PM EDT 01/14/2023 3:48 PM EDT [facility] External Provider LAB BLO OD ORDERABLES Final Result Performing Organization Address [facility] Co de Phone Number [facility] [address] [place] [address] [phone] * Hm Colonoscopy (06/13/2014) [facility] Colonoscopy Normal Normal Historical Provider HEALTH MAINTENANCE Final Result from Last 3 Months or Most Recently Relevant to Health Maintenance Insurance , [address] [place] [address] Care Teams Senior Operator Relationship Specialty Start Date End Date Jonel Forrester MD [address] [place] [address] PCP - General Internal Medicine 01/23/14
--- OUTSIDE RECORDS SUMMARY | 2024-10-16 21:12 | XMS_ITS | Encounter Summary ---
Author Organization [employer] Address [address] [facility] 7 [place] [address] Care Team Providers Care Suture Winder Hand Name Role Phone Jonel Forrester MD Primary Care Provider [phone] Reason for Visit * Reason Onset Date Comments Call Back Request 08/19/2024 Encounter Details Date Type Department Care Team ([facility] st Contact Info) Description 08/19/2024 Telephone [facility] MEDICINE [address] [place] [address] Jonel Forrester MD [address] [place] [phone] Call Back Request Social History Tobacco Use [...] 08/22/2024 10:48 AM EST TC placed to [facility] Radiology who confirms that [...] before CT scan. Please contact Spouse at [phone]. documented in this encounter Plan of Treatment Upcoming Encounters Date Type Department Care Team (Late st Contact Info) Description 11/17/2024 4:00 PM EDT Office Visit [facility] MED & PEDS [address] [place] [address] Jonel Forrester MD [address] [place] [address] documented as of this encounter Visit Diagnoses Not on filedocumented in this encounter Additional Health Concerns Assessment Noted Time PHQ-9 Depression Total Score: 0 08/12/20 22 2:31 PM EST documented as of this encounter Care Teams Suture Winder Hand Relationship Specialty Start Date End Date Jonel Forrester MD [address] [place] [phone] PCP - General Internal Medicine 01/23/14 documented as of this encounter
--- OUTSIDE RECORDS SUMMARY | 2024-10-16 21:12 | XMS_ITS | Clinical Summary ---
Author Organization [employer] [facility] Address [address] [facility] [place] [address] Care Team Providers Care Vegetable Inspector Name Role Phone Unavailable Primary Care Provider [...]
--- OUTSIDE RECORDS SUMMARY | 2024-10-16 21:12 | XMS_ITS | Encounter Summary ---
Author Organization [employer] Address 75 [facility] 7t [place] [address] Care Team Providers Care Converter Operator Name Role Phone Jonel Forrester MD Primary Care Provider [phone] Encounter Details Date Type Department Care Team (Late st Contact Info) Description 06/06/2024 Orders Only [facility] MED & PEDS [address] [place], [place] [phone] Jonel Forrester MD [address] [place] [address] Social History Tobacco Use Types Packs/Day Years [...] [facility] [address] [place] [address] Jonel Forrester MD [address] [place] [address] documented as of this encounter Visit Diagnoses Not on filedocumented in this encounter Additional Health Concerns Assessment Noted Time PHQ-9 Depression Total Score: 0 08/12/20 22 2:31 PM EST documented as of this encounter Care Teams Converter Operator Relationship Specialty Start Date End Date Jonel Frorester MD [address] [place] [address] PCP - General Internal Medicine 01/23/14 documented as of this encounter
--- OUTSIDE RECORDS SUMMARY | 2024-10-16 21:12 | XMS_ITS | Encounter Summary ---
Author Organization [employer] Address [address] [facility] 7t [place] [address] Care Team Providers Care Gm Mobile Name Role Phone Jonel Forrester MD Primary Care Provider [phone] Encounter Details Date Type Department Care Team (Late st Contact Info) Description 06/11/2023 [facility] [address] [place] [address] Jonel Forrester MD [address] [place] [address] Social History Tobacco Use Types Packs/Day Years [...] [facility] [address] [place] [address] Jonel Forrester MD [address] [place] [address] documented as of this encounter Visit Diagnoses Not on filedocumented in this encounter Additional Health Concerns Assessment Noted Time PHQ-9 Depression Total Score: 0 08/12/20 22 2:31 PM EST documented as of this encounter Care Teams Gm Mobile Relationship Specialty Start Date End Date Jonel Forrester MD [address] [place] [address] PCP - General Internal Medicine 01/23/14 documented as of this encounter
--- OUTSIDE RECORDS SUMMARY | 2024-10-16 21:12 | XMS_ITS | Encounter Summary ---
Author Organization [employer] Address [address] [facility] 7t [place] [address] Care Team Providers Care Filling Station Equipment Mechanic Name Role Phone Jonel Forrester MD Primary Care Provider [phone]- [phone] Reason for Visit * Reason Onset Date Comments Referral 07/25/2024 CT scan order 07/25/2024 Encounter Details Date Type Department Care Team ([facility] Contact Info) Description 07/25/2024 Telephone [facility] MED & PEDS [address] [place] [address] Jonel Forrester MD [address] [place] [address] Referral; CT scan order Social History Tobacco [...] unable to schedule appointment. Contact Jaye at [phone] documented in this encounter Plan of Treatment Upcoming Encounters Date Type Department Care Team (Late st Contact Info) Description 11/17/2024 4:00 PM EDT Office Visit [facility] MED & PEDS [address] [place] [address] Jonel Forrester MD [address] [place] [address] documented as of this encounter Visit Diagnoses Not on filedocumented in this encounter Additional Health Concerns Assessment Noted Time PHQ-9 Depression Total Score: 0 08/12/20 22 2:31 PM EST documented as of this encounter Care Teams Filling Station Equipment Mechanic Relationship Specialty Start Date End Date Jonel Forrester MD [address] [place] [address] PCP - General Internal Medicine 01/23/14 documented as of this encounter
--- OUTSIDE RECORDS SUMMARY | 2024-10-16 21:12 | XMS_ITS | Encounter Summary ---
Author Organization [employer] [facility] Address [address] [place] [address] [address] [address] Care Team Providers Care Customer Relations Advisor Name Role Phone Jonel Forrester MD Primary Care Provider [phone] Reason for Visit * Reason Comments Med Refill Encounter Details Date Type Department Care Team ([facility] Contact Info) Description 04/06/2023 Refill [facility] [address] [place] [address] Jonel Forrester MD 505 [place] [address] Oral thrush Social History Tobacco Use Types [...] Upcoming Encounters Date Type Department Care Team ([facility] Contact Info) Description 11/17/2024 4:00 PM EDT Office Visit [facility] [address] [place] [address] Jonel Forrester MD 505 [place] [address] documented as of this encounter Visit Diagnoses Diagnosis Oral thrush Candidiasis of mouth documented in this encounter Additional Health Concerns Assessment Noted Time PHQ-9 Depression Total Score: 0 08/12/20 22 2:31 PM EST documented as of this encounter Care Teams Customer Relations Advisor Relationship Specialty Start Date End Date Jonel Forrester MD [address] [place] [address] PCP - General Internal Medicine 01/23/14 documented as of this encounter
--- OUTSIDE RECORDS SUMMARY | 2024-10-16 21:13 | XMS_ITS | Encounter Summary ---
Author Organization [employer] Address [address] [facility] 7t [place] [address] Care Team Providers Care Guest Services Ambassador Name Role Phone Jonel Forrester MD Primary Care Provider [phone] Encounter Details Date Type Department Care Team ([facility] st Contact Info) Description 09/22/2024 Telephone [facility]EDS [address] [place], [place] [phone] Jonel Forrester MD 505 [place] [address] Social History Tobacco Use Types Packs/Day Years [...] 4:00 PM EDT Office Visit [facility] MED & [facility]EDS [address] [place] [address] Jonel Forrester MD [address] [place] [address] documented as of this encounter Visit Diagnoses Not on filedocumented in this encounter Additional Health Concerns Assessment Noted Time PHQ-9 Depression Total Score: 10 025 2:40 PM EST documented as of this encounter Care Teams Guest Services Ambassador Relationship Specialty Start Date End Date Jonel Forrester MD [address] [place] [address] PCP - General Internal Medicine 01/23/14 documented as of this encounter
--- OUTSIDE RECORDS SUMMARY | 2024-10-16 21:13 | XMS_ITS | Encounter Summary ---
Author Organization [employer] Address [address] [facility] 7 [place] [address] Care Team Providers Care Java Lead Developer Name Role Phone Jonel Forrester MD Primary Care Provider [phone]- [phone] Reason for Visit * Reason Onset Date Comments Referral 09/05/2022 Encounter Details Date Type Department Care Team ([facility] st Contact Info) Description 09/05/2022 Telephone [facility] MED & PEDS [address] [place] [address] Jonel Forrester MD 505 [place] [address] Referral Social History Tobacco Use Types Packs/Day [...] Jennie Gandara ( spouse ) to advised customs entry writer spoke to Underwriting Director and referral will be sent today with urgency noted on referral. No answer. Left VM. Please advise pt is return call. documented in this encounter Plan of Treatment Upcoming Encounters Date Type Department Care Team (Late st Contact Info) Description 11/17/2024 4:00 PM EDT Office Visit [facility]EDS [address] [place] [address] Jonel Forrester MD [address] [place] [address] documented as of this encounter Visit Diagnoses Not on filedocumented in this encounter Additional Health Concerns Assessment Noted Time PHQ-9 Depression Total Score: 0 08/12/20 22 2:31 PM EST documented as of this encounter Care Teams Java Lead Developer Relationship Specialty Start Date End Date Jonel Forrseter MD [address] [place] [address] PCP - General Internal Medicine 01/23/14 documented as of this encounter
--- OUTSIDE RECORDS SUMMARY | 2024-10-16 21:13 | XMS_ITS | Encounter Summary ---
Author Organization [employer] Address [address] [facility] 7t [place] [address] Care Team Providers Care Blood Typer Name Role Phone Jonel Forrester MD Primary Care Provider [phone]- [phone] Encounter Details Date Type Department Care Team (Late Contact Info) Description 08/04/2022 Orders Only [facility] MED[facility]INE [address] [place] [address] Jonel Forrester MD [address] [place], [place] [phone] Social History Tobacco Use Types Packs/Day Years [...] 4:00 PM EDT Office Visit [facility] MED & PEDS 505 [place], [place] [phone] Jonel Forrester MD [address] [place], [place] [phone] documented as of this encounter Visit Diagnoses Not on filedocumented in this encounter Care Teams Blood Typer Relationship Specialty Start Date End Date Jonel Forrester MD [address] [place] [address] PCP - General Internal Medicine 01/23/14 documented as of this encounter
== END ==
LOC: HO.SL 20:30
PROVIDERS: PCP Internal Medicine; Visit Provider Internal Medicine
DX: G47.30 Sleep apnea, unspecified (principal)
CPT/HCPCS: 95810

== ENCOUNTER 2024-12-07 07:33 | Outpatient (REF) | payer OTHER, SELFPAY ==
--- NOTE | ~2024-12-07 | CT_ITS ---
CLINICAL HISTORY: new onset headache. CT head without contrast. COMPARISON: None FINDINGS: Mild mucosal thickening present within the maxillary and ethmoid sinuses. Mastoid air cells are clear. No calvarial fracture. No evidence for mass or mass effect. No intracranial hemorrhage or abnormal extra-axial fluid collection. No evidence of hydrocephalus. The basilar cisterns are patent. Posterior fossa appears unremarkable. IMPRESSION: 1. No acute intracranial findings. This document has been electronically signed by: Stephan Ahuja MD on 12/07/2024 12:52:19
--- OUTSIDE RECORDS SUMMARY | 2024-12-07 07:36 | XMS_ITS | Encounter Summary ---
Author Organization [employer] Address [address] [facility] 7t [place] [address] Care Team Providers Care Sulphate Tester Name Role Phone Jonel Forrester MD Primary Care Provider [phone] Encounter Details Date Type Department Care Team (Late st Contact Info) Description 06/11/2023 [facility] [address] [place] [address] Jonel Forrester MD 505 [place] [address] Social History Tobacco Use Types Packs/Day Years [...] Care Team (Late st Contact Info) Description 12/21/2024 3:15 PM EDT Office Visit [facility] MED & PEDS [address] [place] [address] Jonel Forrester MD 505 [place] [address] documented as of this encounter Visit Diagnoses Not on filedocumented in this encounter Additional Health Concerns Assessment Noted Time PHQ-9 Depression Total Score: 0 08/12/20 22 2:31 PM EST documented as of this encounter Care Teams Sulphate Tester Relationship Specialty Start Date End Date Jonel Forrester MD 505 [place] [address] PCP - General Internal Medicine 01/23/14 documented as of this encounter
--- OUTSIDE RECORDS SUMMARY | 2024-12-07 07:36 | XMS_ITS | Encounter Summary ---
Author Organization [employer] Address [address] [facility] 7t [place] [address] Care Team Providers Care Manager Switch Name Role Phone Jonel Forrester MD Primary Care Provider [phone] Encounter Details Date Type Department Care Team ([facility] st Contact Info) Description 06/06/2024 Orders Only [facility] MED [facility]EDS [address] [place], [place] [phone] Jonel Forrester MD 505 [place] [address] Social History Tobacco Use Types Packs/Day Years [...] Description 12/21/2024 3:15 PM EDT Office Visit [facility] MED & PEDS 505 [place] [address] Jonel Forrester MD 505 [place] [address] documented as of this encounter Visit Diagnoses Not on filedocumented in this encounter Additional Health Concerns Assessment Noted Time PHQ-9 Depression Total Score: 0 08/12/20 22 2:31 PM EST documented as of this encounter Care Teams Manager Switch Relationship Specialty Start Date End Date Jonel Forrester MD 505 [place] [address] PCP - General Internal Medicine 01/23/14 documented as of this encounter
--- OUTSIDE RECORDS SUMMARY | 2024-12-07 07:36 | XMS_ITS | Encounter Summary ---
Author Organization [employer] Address [address] [facility] 7t [place] [address] Care Team Providers Care Director Of Student Services Name Role Phone Jonel Forrester MD Primary Care Provider [phone] Reason for Visit * Reason Onset Date Comments Referral 07/26/2024 Encounter Details Date Type Department Care Team ([facility] st Contact Info) Description 07/26/[address] [facility] MEDICINE [address] [place] [address] Jonel Forrester MD 505 [place] [address] Referral Social History Tobacco Use Types Packs/Day [...] ask PCP a new order. Callback number [phone] documented in this encounter Plan of Treatment Upcoming Encounters Date Type Department Care Team (Late st Contact Info) Description 12/21/2024 3:15 PM EDT Office Visit [facility] MED & PEDS 505 [place] [address] Jonel Forrester MD 505 [place] [address] documented as of this encounter Visit Diagnoses Not on filedocumented in this encounter Additional Health Concerns Assessment Noted Time PHQ-9 Depression Total Score: 0 08/12/20 22 2:31 PM EST documented as of this encounter Care Teams Director Of Student Services Relationship Specialty Start Date End Date Jonel Forrester MD 505 [place] [address] PCP - General Internal Medicine 01/23/14 documented as of this encounter
--- OUTSIDE RECORDS SUMMARY | 2024-12-07 07:36 | XMS_ITS | Encounter Summary ---
Author Organization [employer] [facility] Address [address] [place] [address], [place] [address] Care Team Providers Care Foundation Assistant Name Role Phone Jonel Forrester MD Primary Care Provider [phone] Reason for Visit * Reason Comments Med Refill Encounter Details Date Type Department Care Team ([facility] Contact Info) Description 04/06/2023 Refill [facility] MED & PEDS 505 [place] [address] Jonel Forrester MD 505 [place] [address] Oral thrush Social History Tobacco Use Types [...] Upcoming Encounters Date Type Department Care Team ([facility] Contact Info) Description 12/21/2024 3:15 PM EDT Office Visit [facility] MED & PEDS [address] [place] [address] Jonel Forrester MD [address] [place] [address] documented as of this encounter Visit Diagnoses Diagnosis Oral thrush Candidiasis of mouth documented in this encounter Additional Health Concerns Assessment Noted Time PHQ-9 Depression Total Score: 0 08/12/20 22 2:31 PM EST documented as of this encounter Care Teams Foundation Assistant Relationship Specialty Start Date End Date Jonel Forrester MD [address] [place] [address] PCP - General Internal Medicine 01/23/14 documented as of this encounter
--- OUTSIDE RECORDS SUMMARY | 2024-12-07 07:36 | XMS_ITS | Clinical Summary ---
Author Organization [employer] Address [address] [facility] 7t [place] [address] Care Team Providers Care Hotel Front Office Manager Name Role Phone Jonel Forrester MD Primary Care Provider +1- [phone] Allergies No known active allergies Medications ipratropium-al [...] (07/05/2024 4:58 PM EST): To follow-up with [facility] allergy as scheduled. No acute intervention done today. 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 Encounters Date Type Department Care Team Description 11/30/2024 Orders Only [facility] MED & PEDS [address] [place] [address] Jonel Forrester MD Chronic cough (Primary Dx); Hypoxia 11/29/2024 Telephone [facility] MED & PEDS [address] [place] [address] Jonel Rios MD Care Coordination; Durable Medical Equipment 11/29/2024 Telephone [facility] MED & PEDS [address] [place] [address] Jonel Bright MD 11/17/2024 Telephone [facility] MEDICINE [address] [place] [address] Jonel Gates MD Referral; Durable Medical Equipment; Care Coordination 11/09/2024 Telephone [facility] MED & PEDS [address] [place] [address] Jonel Rios MD Referral; Results 11/08/2024 Orders Only [address] [address] Jonel Gates MD Chronic cough (Primary Dx); Hypoxemia 09/22/2024 Telephone [facility] MED & PEDS [address] [place] [address] Jonel Rios MD 09/21/2024 11:15 AM EST Office Visit [facility] MED & PEDS [address] [place] [address] Jonel Forrester MD Epigastric pain (Primary Dx); Other acute pancreatitis without infection or necrosis; Other headache syndrome; Bronchitis; Nasal congestion 09/21/2024 Travel from Last 3 Months Immunizations Name Administration [...] housing situation today? I have tomasdavid piedra 09/21/[address] you [...] the past 12 months, has t he [employer], gas, oil or water company threatened to [...] Description 12/21/2024 3:15 PM EDT Office Visit [facility] MED & PEDS [address] [place], [place] [phone] Jonel Forrester MD [address] [place], [place] [phone] Health Maintenance Due Date Last Done Comments [...] 1-dose series) 2024 Influenza Vaccine (#1) 2024 Alcohol/Substance Use Screening 09/21/2025 09/21/2024 Depression Screening [...] CONTRAST Routine 09/13/2024 9:07 PM EST Steatocystoma LIPID PANEL, STANDARD Routine 08/24/2023 10:22 AM EST Splenomegaly HEPATITIS C ANTIBODY Routine 01/14/2023 3:47 PM EDT HIV ANTIBODY/ANTIGEN ([place] [facility]) Routine 01/14/2023 3:47 PM EDT HM COLONOSCOPY Routine 06/13/2014 from Last 3 Months or Most Recently Relevant to Health Maintenance Results * (ABNORMAL) CBC auto differential (09/21/2024 12:42 PM EST) White Blood Count 5.9 4.8 - 10.8 X10*3/uL [facility] Red Blood Count 4.60 4.60 - 5.80 X10*6/uL [facility] Hemoglobin 14.6 14.0 - 18.0 g/dl [facility] Hematocrit 45.7 42.0 - 52.0 % [facility] Mean Corpuscular Volume 99.3(H) 80.0 - 98.0 fL [facility] Mean Corpuscular Hemoglobin 31.7 27.0 - 33.0 pg [facility] Mean Corpuscular HGB Conc 31.9 31.0 - 36.0 g/dl [facility] Red Cell Distribution Width 15.0 11.0 - 16.0 % [facility] Platelet Count 229 160 - 400 X10*3/uL [facility] Mean Platelet Volume 11.3 9.4 - 12.4 fL [facility] Neutrophils Percent Auto 52.1 45 - 73 % [facility] Imm Gran Pct Auto 0.5(H) 0.0 - 0.4 % [facility] Lymphocytes Percent Auto 36.5 20 - 40 % [facility] Monocytes Percent Auto 10.2 2 - 11 % [facility] Eosinophils Percent Auto 0.5 0 - 4 % [facility] Basophils Percent Auto 0.2 0 - 2 % [facility] NRBC Pct Auto 0.0 0.0 - 0.2 /100WBC [facility] Neutrophils Absolute Auto 3.1 2.0 - 8.3 x10*3/uL [facility] Imm Gran Abs Auto 0.03 0.00 - 0.03 X10*3/uL [facility] Lymphocytes Absolute Auto 2.2 1.2 - 4.9 X10*3/uL [facility] Monocytes Absolute Auto 0.6 0.1 - 1.2 X10*3/uL [facility] Eosinophils Absolute Auto 0.0 0.0 - 0.4 X10*3/uL [facility] Basophils Absolute Auto 0.0 0.0 - 0.2 X10*3/uL [facility] NRBC Abs Auto 0.000 0.0 - 0.012 X10*3/uL [facility] Blood Venous blood specimen / Unknown 09/21/2024 12:42 PM EST 09/21/2024 1:57 PM EST Jonel Forrester MD LAB BLOOD ORDERABLES Final Result Performing Organization Address [facility] Co de Phone Number [facility] [address] [place] [phone] * Lipase (09/21/2024 12:42 PM EST) Lipase 15 8 - 78 U/L [facility] Blood Venous blood specimen / Unknown 09/21/2024 12:42 PM EST 09/21/2024 1:57 PM EST us Jonel Forrester MD LAB BLOOD ORDERABLES Final Result Performing Organization Address [facility] Co in Phone Number [facility] [address] [place] [phone] * Amylase (09/21/2024 12:42 PM EST) Amylase 43 28 - 100 U/L [facility] Blood Venous blood specimen / Unknown 09/21/2024 12:42 PM EST 09/21/2024 1:57 PM EST us Jonel Forrester MD LAB BLOOD ORDERABLES Final Result Performing Organization Address [facility] de Phone Number [facility] [address] [place] [phone] * CT Abdomen Pelvis w/ Contrast (09/13/2024 9:07 PM EST) Anatomical Region Laterality Modality Body, Pelvis, Abdomen Computed T omography 09/13/2024 9:07 PM EST Narrative 09/13/2024 9:09 PM EST ? [facility] ?[address] ?[place] [address] ? CT Scan Report ? Signed ? Patient: Maximino,Talon ?MR#: [id number] ?? [id number] ? : 1965 ?Acct:[id number] ? Age/Sex: 59 / M ?ADM Date: 09/13/24 ? Loc: HO.CT ? Attending Dr: Jonel Forrester MD ? Ordering Physician: Jonel Forrester MD ?? Date of Service: 09/13/24 ?? Procedure(s): CT abdomen pelvis w IV con ?? Accession Number(s): [id number] ? cc: Jonel Forrester MD ? Report Number: ?? [id number]: Total DLP = ??714.00 mGy-cm ? CLINICAL [...] ? 09/13/242108 ? DD/ 06 ? TD/TT: 01/28/25 2107 ? Server Assistant: ? Procedure Note Donotuseinterpreter, Image - 09/13/[address] [address] [address] Scan Report Signed Patient: Megan Stanton#: [id number] : 1965Acct:[id number] Age/Sex: 59 / MADM Date: 09/13/24 Loc: HO.CT Attending Dr: Jonel Forrester MD Ordering Physician: Jonel Forrester MD Date of Service: 09/13/24 Procedure(s): CT abdomen pelvis w IV con Accession Number(s): [id number] cc: Jonel Forrester MD Report Number: [id number]: Total DLP = 714.00 mGy-cm CLINICAL HISTORY: [...] in OV> 09/13/242108 DD/ 06 TD/TT: 09/13/242106 Server Assistant: us Jonel Forrester MD IMG CT PROCEDURES Final Res ult * (ABNORMAL) Lipid Panel, Standard (08/24/2023 10:22 AM EST) Triglycerides 88 <150 mg/dL [facility] Comment:Desirable Triglyceri de: less than 150 mg/dLBorderline High Triglyceride 150-199 mg/dLHigh Triglyceride: 200-499 mg/dLVery High Triglyceride: greater than or equal to 5OO mg/dL Cholesterol 204(H) <200 mg/dL [facility] Comment:Desirable Cholestero l: less than 200 mg/dLBorderline High Cholesterol: 200-239 mg/dLHigh Cholesterol: greater than 239 mg/dL LDL Cholesterol Calculated 137(H) <100 mg/dL [facility] Comment:Desirable LDL: less than 100 mg/dLNear Optimal/Above Optimal LDL: 110- 129 mg/dLBorderline High LDL: 130-159 mg/dLHigh LDL: 160-189 mg/dLVery High LDL: greater than or equal to 190 mg/dL HDL Cholesterol 50 >40 mg/dL [facility] Comment:Desirable HDL: great er than 40 mg/dL Note: This HDL assay may give artificially low results in patients with liver disease. Blood Venous blood specimen / Unknown 08/24/2023 10:22 AM EST 08/24/2023 10:22 AM EST us Jonel Forrester MD LAB BLOOD ORDERABLES Final Result [facility] [address] [place], [place] [phone] * Hepatitis C Ab (01/14/2023 3:47 PM EDT) Hepatitis C Antibody Nonreactive Nonreactive [facility] Comment:Antibodies to HCV no t detected; does not exclude early acuteHCV infection. 01/14/2023 3:47 PM EDT 01/14/2023 3:48 PM EDT [facility] External Provider LAB BLO OD ORDERABLES Final Result Performing Organization Address [facility] de Phone Number [facility] [address] [place] [phone] * HIV Ab/Ag (KRUNAL LOPEZ) (01/14/2023 3:47 PM EDT) HIV AB/AG Nonreactive Nonreactive [facility] Comment:HIV-1 p24 Ag and/or HIV-1/HIV-2 Ab not detected.A test result that is nonreactive does not exclude thepossibility of exposure to or infection with HIV-1 and/orHIV-2. Nonreactive results in this assay for individualswith prior exposure to HIV-1 and/or HIV-2 may be due toantigen and antibody levels that are below the limit ofdetection of this assay.The Madsen Duct Layer HIV Ag/Ab Combo assay result andsupplemental assay results should be interpreted inconjunction with the patient's clinical presentation,history and other laboratory results. If the results areinconsistent with clinical evidence, additional testing issuggested to confirm the result. 01/14/2023 3:47 PM EDT 01/14/2023 3:48 PM EDT [facility] External Provider LAB BLO OD ORDERABLES Final Result Performing Organization Address [facility] Co de Phone Number [facility] [address] [place] [phone] * Hm Colonoscopy (06/13/2014) Colonoscopy Normal Normal Historical Provider HEALTH MAINTENANCE Final Result from Last 3 Months or Most Recently Relevant to Health Maintenance Insurance , [address] [place] [address] Care Teams Hotel Front Office Manager Relationship Specialty Start Date End Date Jonel Forrester MD [address] [place] [address] PCP - General Internal Medicine 01/23/14
--- OUTSIDE RECORDS SUMMARY | 2024-12-07 07:36 | XMS_ITS | Encounter Summary ---
Author Organization [employer] Address [address] [place] [address] 7 [place] [address] Care Team Providers Care Tinter Photograph Name Role Phone Jonel Forrester MD Primary Care Provider [phone] Reason for Referral * Hospital - Outpatient (Routine) - Authorized Specialty Diagnoses / Procedures Referred By Contac t Referred To Contact Respiratory Therapy Diagnoses Chronic cough Hypoxemia Procedures Pulse oximetry, overnight Jonel Forrester MD [address] [place] [address] Phone: tel: fax: Referral ID Status Reason Start Date Expiration Date V isits Requested Visits Authorized [id number] Authorized 11/08/2024 11/08/2025 1 1 Encounter Details Date Type Department Care Team (Late st Contact Info) Description 11/08/2024 Orders Only [facility] MEDICINE [address] [place] [address] Jonel Forrester MD [address] [place], [place] [phone] Chronic cough (Primary Dx); Hypoxemia Social History Tobacco Use Types Packs/Day Years [...] Upcoming Encounters Date Type Department Care Team ([facility] Contact Info) Description 12/21/2024 3:15 PM EDT Office Visit [facility] MED & PEDS [address] [place] [address] Jonel Forrester MD [address] [place] [address] Scheduled Orders Name Type Priority Associated Diagnoses Orde r Schedule Pulse oximetry, overnight Respiratory Care Routine Chronic cough Hypoxemia Expected: 11/08/2024 (Approximate), Expires: 11/08/2025 documented as of this encounter Visit Diagnoses Diagnosis Chronic cough- Primary Cough Hypoxemia documented in this encounter Additional Health Concerns Assessment Noted Time PHQ-9 Depression Total Score: 10 025 2:40 PM EST documented as of this encounter Care Teams Tinter Photograph Relationship Specialty Start Date End Date Jonel Forrester MD [address] [place] [phone] PCP - General Internal Medicine 01/23/14 documented as of this encounter
--- OUTSIDE RECORDS SUMMARY | 2024-12-07 07:36 | XMS_ITS | Clinical Summary ---
Author Organization [employer] [facility] lin Address [address] [facility] [employer] [place] [address] Care Team Providers Care Motor Vehicles Inspector Name Role Phone Unavailable Primary Care [...]
--- OUTSIDE RECORDS SUMMARY | 2024-12-07 07:36 | XMS_ITS | Encounter Summary ---
Author Organization [employer] Address 75 [facility] 7t [place] [address] Care Team Providers Care Dermatology Nurse Practitioner Name Role Phone Jonel Forrester MD Primary Care Provider [phone]- [phone] Reason for Visit * Reason Onset Date Comments Referral 07/25/2024 CT scan order 07/25/2024 Encounter Details Date Type Department Care Team ([facility] Contact Info) Description 07/25/2024 Telephone [facility] MED & PEDS [address] [place] [address] Jonel Forrester MD [address] [place] [address] Referral; CT scan order Social History Tobacco [...] unable to schedule appointment. Contact Jaye at [phone] documented in this encounter Plan of Treatment Upcoming Encounters Date Type Department Care Team (Late st Contact Info) Description 12/21/2024 3:15 PM EDT Office Visit [facility] [address] [place] [address] Jonel Forrester MD [address] [place] [address] documented as of this encounter Visit Diagnoses Not on filedocumented in this encounter Additional Health Concerns Assessment Noted Time PHQ-9 Depression Total Score: 0 08/12/20 22 2:31 PM EST documented as of this encounter Care Teams Dermatology Nurse Practitioner Relationship Specialty Start Date End Date Jonel Forrester MD [address] [place] [address] PCP - General Internal Medicine 01/23/14 documented as of this encounter
--- OUTSIDE RECORDS SUMMARY | 2024-12-07 07:36 | XMS_ITS | Encounter Summary ---
Author Organization [employer] Address [address] [facility] 7t [place] [address] Care Team Providers Care Animal Health Technician Name Role Phone Jonel Forrester MD Primary Care Provider [phone] Reason for Visit * Reason Onset Date Comments Med Refill 07/01/2023 Encounter Details Date Type Department Care Team ([facility] st Contact Info) Description 07/01/2023 Telephone [facility] MEDICINE [address] [place] [address] Jonel Forrester MD [address] [place] [address] Med Refill Social History Tobacco Use Types [...] Upcoming Encounters Date Type Department Care Team ([facility] st Contact Info) Description 12/21/2024 3:15 PM EDT Office Visit [facility] MED & PEDS [address] [place] [address] Jonel Forrester MD [address] [place] [address] documented as of this encounter Visit Diagnoses Not on filedocumented in this encounter Additional Health Concerns Assessment Noted Time PHQ-9 Depression Total Score: 0 08/12/20 22 2:31 PM EST documented as of this encounter Care Teams Animal Health Technician Relationship Specialty Start Date End Date Jonel Forrester MD [address] [place] [address] PCP - General Internal Medicine 01/23/14 documented as of this encounter
--- OUTSIDE RECORDS SUMMARY | 2024-12-07 07:36 | XMS_ITS | Encounter Summary ---
Author Organization [employer] Address [address] [facility] 7t [place] [address] Care Team Providers Care Door Fitter Name Role Phone Jonel Forrester MD Primary Care Provider [phone] Encounter Details Date Type Department Care Team (Late st Contact Info) Description 06/17/2023 Abstract [facility] MEDICINE [address] [place] [address] Jonel Forrester MD [address] [place] [address] Social History Tobacco Use Types Packs/Day Years [...] Description 12/21/2024 3:15 PM EDT Office Visit [facility] MED & PEDS [address] [place] [address] Jonel Forrester MD [address] [place] [address] documented as of this encounter Procedures Procedure [...] documented as of this encounter Care Teams Door Fitter Relationship Specialty Start Date End Date Jonel Forrester MD [address] [place] [address] PCP - General Internal Medicine 01/23/14 documented as of this encounter
--- OUTSIDE RECORDS SUMMARY | 2024-12-07 07:37 | XMS_ITS | Encounter Summary ---
Author Organization [employer] Address 75 [facility] 7t [place] [address] Care Team Providers Care Upholstery Parts Sorter Name Role Phone Jonel Forrester MD Primary Care Provider [phone]- [phone] Encounter Details Date Type Department Care Team ([facility] Contact Info) Description 09/11/2022 Orders Only [facility] MEDICINE [address] [place] [address] Jonel Forrester MD 505 [place] [address] Hemoptysis (Primary Dx); Pneumonia of both lungs [...] Department Care Team (Late Contact Info) Description 12/21/2024 3:15 PM EDT Office Visit [facility] MED & PEDS 505 [place] [address] Jonel Forrester MD 505 [place] [address] documented as of this encounter Visit Diagnoses Diagnosis Hemoptysis- Primary Pneumonia of both lungs due to infectious organism, unspecified part of lung documented in this encounter Additional Health Concerns Assessment Noted Time PHQ-9 Depression Total Score: 0 08/12/20 22 2:31 PM EST documented as of this encounter Care Teams Upholstery Parts Sorter Relationship Specialty Start Date End Date Jonel Forrester MD [address] [place] [address] PCP - General Internal Medicine 01/23/14 documented as of this encounter
--- OUTSIDE RECORDS SUMMARY | 2024-12-07 07:37 | XMS_ITS | Encounter Summary ---
Author Organization [employer] Address 75 [facility] 7 [place] [address] Care Team Providers Care Concrete Mixing Truck Driver Name Role Phone Jonel Forrester MD Primary Care Provider [phone] Reason for Visit * Reason Onset Date Comments Call Back Request 08/19/2024 Encounter Details Date Type Department Care Team ([facility] st Contact Info) Description 08/19/2024 Telephone [facility] [address] [place] [address] Jonel Forrester MD [address] [place] [address] Call Back Request Social History Tobacco Use [...] 08/22/2024 10:48 AM EST TC placed to [facility] Radiology who confirms that the pt has [...] before CT scan. Please contact Spouse at [phone]. documented in this encounter Plan of Treatment Upcoming Encounters Date Type Department Care Team (Late st Contact Info) Description 12/21/2024 3:15 PM EDT Office Visit [facility] MED & PEDS 505 [place], [place] [phone] Jonel Forrester MD 505 [place] [address] documented as of this encounter Visit Diagnoses Not on filedocumented in this encounter Additional Health Concerns Assessment Noted Time PHQ-9 Depression Total Score: 0 08/12/20 22 2:31 PM EST documented as of this encounter Care Teams Concrete Mixing Truck Driver Relationship Specialty Start Date End Date Jonel Forrester MD [address] [place] [address] PCP - General Internal Medicine 01/23/14 documented as of this encounter
--- OUTSIDE RECORDS SUMMARY | 2024-12-07 07:37 | XMS_ITS | Encounter Summary ---
Author Organization [facility] Address [address] [place] [address] Care Team Providers Care Exterminator Name Role Phone Jonel Forrester Primary Care Provider Encounter Details Date Type Department Care Team ([facility] Contact Info) Description 09/08/2022 Telephone [facility] [address] [place] [address] Telephone Intake, Staff Social History Tobacco Use [...] on filedocumented in this encounter Care Teams Exterminator Relationship Specialty Start Date End Date Jonel Forrester 505 [place] [address] PCP - General 03/05/17 documented as of this encounter
--- OUTSIDE RECORDS SUMMARY | 2024-12-07 07:37 | XMS_ITS | Continuity of Care Document ---
Author Organization [facility] Address [address] [place] [address] [address] [place] [address] Phone Care Team Providers Care Personal Lines Sales Rep Name Role Phone Jeb Wallace MD, FACS, RVT Unavailable Unavailable Advance Directives Directive Yes / No Effective Date File Name No Information Encounters Encounter Description Practice Location Reason(s) For Visit Diagnoses Date Provider Providers Copied on Encounter [facility], [address] [place] [address] Dr [address], [place], [id number], tel:[phone] [address] [facility] No Information 3 Santy Bryan. [address] [address], [place], [address], [place]. tel:[phone] Referring Provider: Jonel Molina Lyons, [address] [place] [address], [address]. tel:[phone] Family History Family Member Type Diagnosis Age At Onset No Information Payers Payer name Insurance type Covered constitution party ID Authoriza tion(s) No Information Social [...]
--- OUTSIDE RECORDS SUMMARY | 2024-12-07 07:37 | XMS_ITS | Encounter Summary ---
Author Organization [employer] Address 75 [facility] 7t [place] [address] Care Team Providers Care Attendant Child Activity Name Role Phone Jonel Forrester MD Primary Care Provider [phone] Encounter Details Date Type Department Care Team (Late st Contact Info) Description 08/22/2024 Orders Only [facility] CH[facility] MED & PEDS [address] [place], [place] [phone] Jonel Forrester MD 505 [place] [address] Thrombocytopenia ([facility]) (Primary Dx) Social History Tobacco Use Types [...] Description 12/21/2024 3:15 PM EDT Office Visit [facility] MED & PEDS [address] [place], [place] [phone] Jonel Forrester MD [address] [place], [place] [phone] documented as of this encounter Procedures Procedure Name Priority Date/Time Associated Diagnosis Comments CREATININE, SERUM Routine 09/07/2024 11: 09 AM EST Thrombocytopenia (CMS/HCC) UREA NITROGEN (BUN) Routine 09/07/2024 1 1:09 AM EST Thrombocytopenia (CMS/HCC) documented in this encounter Results * Creatinine, Serum (09/07/2024 11:09 AM EST) Creatinine, Serum 0.88 0.5 - 1.4 mg/dL [facility] Estimated Glomerular Filt Rate >60 [facility] Comment:Chronic Kidney Disea se: Estimated GFR < 60 mL/min/1.83y4Ohwcsf Kidney Disease: Estimated GFR < 15 mL/min/1.73m2 Blood Venous blood specimen / Unknown 09/07/2024 11:09 AM EST 09/07/2024 11:09 AM EST us Jonel Forrester MD LAB BLOOD ORDERABLES Final Result [facility] [address] [place], [place] [phone] * (ABNORMAL) BUN (Blood Urea Nitrogen) (09/07/2024 11:09 AM EST) Urea Nitrogen (BUN) 18(H) 9 - 16 mg/dL [facility] Blood Venous blood specimen / Unknown 09/07/2024 11:09 AM EST 09/07/2024 11:09 AM EST Jonel Forrester MD LAB BLOOD ORDERABLES Final Result [facility] [address] [place] [address] [phone] documented in this encounter Visit Diagnoses Diagnosis Thrombocytopenia (CMS/HCC)- Primary Unspecified thrombocytopenia documented in this encounter Additional Health Concerns Assessment Noted Time PHQ-9 Depression Total Score: 0 08/12/20 22 2:31 PM EST documented as of this encounter Care Teams Attendant Child Activity Relationship Specialty Start Date End Date Jonel Forrester MD [address] [place] [address] PCP - General Internal Medicine 01/23/14 documented as of this encounter
--- OUTSIDE RECORDS SUMMARY | 2024-12-07 07:37 | XMS_ITS | Clinical Summary ---
Author Organization [facility] Address [address] [place] [address] Care Team Providers Care Doll Surgeon Name Role Phone Jonel Forrester Primary Care Provider + [phone] Allergies No known active allergies Medications ferrous [...] Vaccine (1 - 2023-2 5 season) 2024 Alcohol/Substance Use Screening 08/17/2024 Depression Screening and Follow-Up 08/17/2024 Social Drivers of Health Annual Screening 08/17/2024 Influenza Vaccine (Season Ended) 2025 Hepatitis C Screening Completed 01/26/2017 CT Lung Cancer Screening (12 months, previous LungRADS 1 or 2) Discontinued 06/12/2017, 12/02/2016 Hepatitis B Vaccines Aged Out No long er eligible based on patient's age to complete this topic Procedures * Due to [place] state law, this organization might not be sharing negative HIV tests. Procedure Name Priority Date/Time Associated Diagnosis Comments CT CHEST W CONTRAST Routine 06/12/2017 5 :07 PM EDT Cough Lymphadenopathy Hepatomegaly HEPATITIS C ANTIBODY W/REFLEX TO HCV RNA, QUANTITATIVE PCR Routine 01/26/2017 9:57 AM EDT from Last 3 Months or Most Recently Relevant to Health Maintenance Results * Due to [place] [employer] law, this organization might not be sharing [...] not known, consider bronchoscopy for further evaluation. [id number] Narrative 06/15/2017 2:[address] CHEST [...] the prior chest CT without change 139. Wfdkdawwj-gs-qse opacities are seen in the right middle lobe and right lowerlobe that were present in the prior exam and slightly more prominent inthe right upper lobe posteriorly compared to prior exam. Some of thepatchy nodules of the right upper lobe have resolved. Minimal lbyr-vl-uqiptotkfxyn are seen in the left upper lobe [...] is no significant interval change in the aszj-rr-hwhefhcocdor from end bronchial inflammation/bronchiolitis as congested inthe prior study. No consolidation or pleural effusion is noted. There isalso no change in the mild bronchiectasis of the lower lobes. If etiologyof the bronchiolitis/inflammation is not known, consider bronchoscopy forfurther evaluation. [id number] Wan Lee MD IMG CT PROCEDURES Final Result * Hepatitis C Antibody w/Reflex to HCV RNA, Quantitative PCR (01/26/2017 9:57 AM EDT) Hepatitis C Antibody NON-REACTI VE NON-REACT MAXIMINO [facility] Signal To Cut-Off 0.01 <1.00 [facility] 01/26/2017 9:57 AM EDT 01/26/2017 10:39 AM EDT Renee Moore HOT BALLER LAB BLOOD ORDERABLES Final Result JULIA AGUIRRE [address] 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
--- OUTSIDE RECORDS SUMMARY | 2024-12-07 07:37 | XMS_ITS | Encounter Summary ---
Author Organization [employer] Address 75 [facility] 7 [place] [address] Care Team Providers Care Patient Safety Coordinator Name Role Phone Jonel Forrester MD Primary Care Provider [phone] Reason for Visit * Reason Onset Date Comments Referral 09/05/2022 Encounter Details Date Type Department Care Team ([facility] st Contact Info) Description 09/05/2022 Telephone [facility] CH[facility] MED & PEDS [address] [place] [address] Jonel Forrester MD [address] [place] [address] Referral Social History Tobacco Use Types Packs/Day [...] Miscellaneous Notes * Telephone Encounter - Arina Laice - 09/05/2022 12:06 PM EST Outbound call to Jennie Gandara ( spouse ) to advised 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 No answer. Left VM. Please advise pt is return call. documented in this encounter Plan of Treatment Upcoming Encounters Date Type Department Care Team (Late st Contact Info) Description 12/21/2024 3:15 PM EDT Office Visit [facility] MED [facility] PEDS [address] [place] [address] Jonel Forrester MD [address] [place] [address] documented as of this encounter Visit Diagnoses Not on filedocumented in this encounter Additional Health Concerns Assessment Noted Time PHQ-9 Depression Total Score: 0 08/12/20 22 2:31 PM EST documented as of this encounter Care Teams Patient Safety Coordinator Relationship Specialty Start Date End Date Jonel Forrester MD [address] [place] [address] PCP - General Internal Medicine 01/23/14 documented as of this encounter
--- OUTSIDE RECORDS SUMMARY | 2024-12-07 07:37 | XMS_ITS | Encounter Summary ---
Author Organization [employer] Address [address] [facility] 7t [place] [address] Care Team Providers Care Residential Plumber Name Role Phone Jonel Forrester MD Primary Care Provider [phone] Encounter Details Date Type Department Care Team (Late Contact Info) Description 08/04/2022 Orders Only [facility] MEDICINE [address] [place] [address] Jonel Forrester MD [address] [place], [place] [phone] Social History Tobacco Use Types Packs/Day Years [...] Description 12/21/2024 3:15 PM EDT Office Visit [facility] CH[facility] MED & PEDS [address] [place], [place] [phone] Jonel Forrester MD [address] [place], [place] [phone] documented as of this encounter Visit Diagnoses Not on filedocumented in this encounter Care Teams Residential Plumber Relationship Specialty Start Date End Date Jonel Forrester MD [address] [place] [address] PCP - General Internal Medicine 01/23/14 documented as of this encounter
--- OUTSIDE RECORDS SUMMARY | 2024-12-07 07:37 | XMS_ITS | Referral Summary ---
Author Organization [facility] Address [address] [place] [address] Care Team Providers Care Librarian Head Name Role Phone Jonel Forrester Primary Care Provider + [phone] Allergies No known active allergies Medications ferrous [...] Not on file Procedures * Due to [place] [employer] law, this organization might not be sharing negative HIV tests. Procedure Name Priority Date/Time Associated Diagnosis Comments CT CHEST W CONTRAST Routine 06/12/2017 5 :07 PM EDT Cough Lymphadenopathy Hepatomegaly HEPATITIS C ANTIBODY W/REFLEX TO HCV RNA, QUANTITATIVE PCR Routine 01/26/2017 9:57 AM EDT from Last 3 Months or Most Recently Relevant to Health Maintenance Results * Due to [place] [employer] law, this organization might not be sharing [...] not known, consider bronchoscopy for further evaluation. [id number] Narrative 06/15/2017 2:[address] CHEST [...] the prior chest CT without change 139. Yvumwmegt-bi-fjy opacities are seen in the right middle lobe and right lowerlobe that were present in the prior exam and slightly more prominent inthe right upper lobe posteriorly compared to prior exam. Some of thepatchy nodules of the right upper lobe have resolved. Minimal wjlg-ar-noxcvwsboxvh are seen in the left upper lobe [...] is no significant interval change in the ridd-oi-zotpvmywknrj from end bronchial inflammation/bronchiolitis as congested inthe prior study. No consolidation or pleural effusion is noted. There isalso no change in the mild bronchiectasis of the lower lobes. If etiologyof the bronchiolitis/inflammation is not known, consider bronchoscopy forfurther evaluation. [id number] Wan Lee MD IMG CT PROCEDURES Final Result * Hepatitis C Antibody w/Reflex to HCV RNA, Quantitative PCR (01/26/2017 9:57 AM EDT) Hepatitis C Antibody NON-REACTI VE NON-REACT MAXIMINO [facility] Signal To Cut-Off 0.01 <1.00 [facility] 01/26/2017 9:57 AM EDT 01/26/2017 10:39 AM EDT Renee Moore EMPLOYEE COMMUNICATIONS SPECIALIST LAB BLOOD ORDERABLES Final Result JULIA AGUIRRE [address] [facility] 3rd Floor, [place] [address], [place] [phone] from Last 3 Months or Most Recently Relevant to Health Maintenance Insurance HSNO/FREE CARE Advance Directives Documents on File Type Date Recorded Patient Dental Services Director Expl [facility] Care Proxy 05/29/2017 10:55 AM Care Teams Librarian Head Relationship Specialty Start Date End Date Jonel Forrester [address] [place] [address] PCP - General 03/05/17
--- OUTSIDE RECORDS SUMMARY | 2024-12-07 07:37 | XMS_ITS | Encounter Summary ---
Author Organization [employer] Address 75 [facility] 7t [place] [address] Care Team Providers Care Ballast Regulator Operator Name Role Phone Jonel Forrester MD Primary Care Provider [phone] Encounter Details Date Type Department Care Team ([facility] st Contact Info) Description 11/29/2024 Telephone [facility] CHC MED & PEDS [address] [place], [place] [phone] Jonel Forrester MD [address] [place] [address] Social History Tobacco Use Types Packs/Day Years [...] encounter Miscellaneous Notes * Telephone Encounter - Marleni New RN - 12/02/2024 3:36 PM EDT Placed call to [facility] and was informed order from yesterday was never received. Order reprinted, written overnight pulse ox on room air, signed by PCP and faxed to [facility] [phone]. Confirmation received and sent to scan. * Telephone Encounter - Marleni New RN - 12/02/2024 3:28 PM EDT ----- Message from Jonel Forrester MD sent at 12/02/2024 1:10 PM EDT ----- Please call [facility] to find out when Mr. Talon Stanton will get his overnight oxygen study. documented in this encounter Plan of Treatment Upcoming Encounters Date Type Department Care Team (Late st Contact Info) Description 12/21/2024 3:15 PM EDT Office Visit [facility] CHC MED & PEDS [address] [place] [address] Jonel Forrester MD [address] [place] [address] documented as of this encounter Visit Diagnoses Not on filedocumented in this encounter Additional Health Concerns Assessment Noted Time PHQ-9 Depression Total Score: 10 025 2:40 PM EST documented as of this encounter Care Teams Ballast Regulator Operator Relationship Specialty Start Date End Date Jonel Forrester MD [address] [place] [address] PCP - General Internal Medicine 01/23/14 documented as of this encounter
== END 2024-12-07 07:34 | disposition home or self-care (01) ==
LOC: HO.CT 07:33
PROVIDERS: PCP Internal Medicine; Visit Provider Internal Medicine
DX: G44.89 Other headache syndrome (principal)
CPT/HCPCS: 70450

== ENCOUNTER → 2024-12-07 07:35 | Outpatient (BNV) | payer OTHER, SELFPAY | PROVIDERS: PCP Internal Medicine; Visit Provider Radiology Diagnostic Radiology | DX: R51.9 Headache, unspecified (principal) | CPT/HCPCS: 70450 ==

== ENCOUNTER 2024-12-21 16:09 | Outpatient (REF) | payer OTHER, SELFPAY ==
--- OUTSIDE RECORDS SUMMARY | 2024-12-21 16:33 | XMS_ITS | Clinical Summary ---
Author Organization [facility] Address [address] [place] [address] Care Team Providers Care International Project Manager Name Role Phone Jonel Forrester Primary Care Provider + [phone] Allergies No known active allergies Medications ferrous [...] Health Maintenance Results * Due to [place] [employer] law, this organization might not be sharing [...] not known, consider bronchoscopy for further evaluation. [id number] Narrative 06/15/2017 2:[address] CHEST [...] the prior chest CT without change 139. Xcpciwvzd-bv-bis opacities are seen in the right middle lobe and right lowerlobe that were present in the prior exam and slightly more prominent inthe right upper lobe posteriorly compared to prior exam. Some of thepatchy nodules of the right upper lobe have resolved. Minimal vikq-ky-jmdkkjfpgxfn are seen in the left upper lobe [...] is no significant interval change in the nzeo-mn-dwgsxtmitjue from end bronchial inflammation/bronchiolitis as congested inthe prior study. No consolidation or pleural effusion is noted. There isalso no change in the mild bronchiectasis of the lower lobes. If etiologyof the bronchiolitis/inflammation is not known, consider bronchoscopy forfurther evaluation. [id number] Wan Lee MD IMG CT PROCEDURES Final Result * Hepatitis C Antibody w/Reflex to HCV RNA, Quantitative PCR (01/26/2017 9:57 AM EDT) Hepatitis C Antibody NON-REACTI VE NON-REACT MAXIMINO [facility] Signal To Cut-Off 0.01 <1.00 [facility] 01/26/2017 9:57 AM EDT 01/26/2017 10:39 AM EDT Renee Moore PARTY DEMONSTRATOR LAB BLOOD ORDERABLES Final Result JULIA AGUIRRE [address] [facility] 3rd Floor, [place] [address], [place] [phone] from Last 3 Months or Most Recently Relevant to Health Maintenance Insurance HSNO/FREE CARE [facility] Advance Directives Documents on File Type Date Recorded 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
--- OUTSIDE RECORDS SUMMARY | 2024-12-21 16:33 | XMS_ITS | Encounter Summary ---
Author Organization [facility] Address [address] [place] [address] Care Team Providers Care Ground Wirer Name Role Phone Jonel Forrester Primary Care Provider [phone] Encounter Details Date Type Department Care Team ([facility] Contact Info) Description 09/08/2022 Telephone [facility] Patient Access Center [address] [place] [id number] Telephone Intake, Staff Social History Tobacco Use [...] on filedocumented in this encounter Care Teams Ground Wirer Relationship Specialty Start Date End Date Jonel Forrester [address] [place] [address] PCP - General 03/05/17 documented as of this encounter
--- OUTSIDE RECORDS SUMMARY | 2024-12-21 16:33 | XMS_ITS | Clinical Summary ---
Author Organization [facility] Address [address] [place] [address] Care Team Providers Care Kardex Clerk Name Role Phone Unavailable Primary Care Provider [...]
--- OUTSIDE RECORDS SUMMARY | 2024-12-21 16:33 | XMS_ITS | Continuity of Care Document ---
Author Organization [facility] Address [address] [place] [address] [address] [place] [address] Phone Care Team Providers Care Diabetologist Name Role Phone Jeb Wallace MD, FACS, RVT Unavailable Unavailable Advance Directives Directive Yes / No Effective Date File Name No Information Encounters Encounter Description Practice Location Reason(s) For Visit Diagnoses Date Provider Providers Copied on Encounter [facility], [address] [place] [address] Dr [address], [place], [id number], tel:[phone] [facility] No Information 3 Santy PEDROZA FACS DOUGIE Bryan. [address] [address], [place], [address], [place]. tel:[phone] Referring Provider: Jonel Molina [facility], [address] [place] [address], [address]. tel:[phone] Family History Family Member Type Diagnosis Age [...]
--- OUTSIDE RECORDS SUMMARY | 2024-12-21 16:33 | XMS_ITS | Referral Summary ---
Author Organization [facility] Address [address] [place] [address] Care Team Providers Care Ground Wirer Name Role Phone Jonel Forrester Primary Care Provider + [phone] Allergies No known active allergies Medications ferrous [...] Not on file Procedures * Due to [place] [employer] law, this organization might not be sharing negative HIV tests. Procedure Name Priority Date/Time Associated Diagnosis Comments CT CHEST W CONTRAST Routine 06/12/2017 5 :07 PM EDT Cough Lymphadenopathy Hepatomegaly HEPATITIS C ANTIBODY W/REFLEX TO HCV RNA, QUANTITATIVE PCR Routine 01/26/2017 9:57 AM EDT from Last 3 Months or Most Recently Relevant to Health Maintenance Results * Due to [place] [employer] law, this organization might not be sharing [...] not known, consider bronchoscopy for further evaluation. [id number] Narrative 06/15/2017 2:[address] CHEST [...] the prior chest CT without change 139. Vxfghswic-uf-wsc opacities are seen in the right middle lobe and right lowerlobe that were present in the prior exam and slightly more prominent inthe right upper lobe posteriorly compared to prior exam. Some of thepatchy nodules of the right upper lobe have resolved. Minimal vfnm-vb-xyjpdezinqtt are seen in the left upper lobe [...] is no significant interval change in the hjri-hr-yczmiimzfzzy from end bronchial inflammation/bronchiolitis as congested inthe prior study. No consolidation or pleural effusion is noted. There isalso no change in the mild bronchiectasis of the lower lobes. If etiologyof the bronchiolitis/inflammation is not known, consider bronchoscopy forfurther evaluation. [id number] Wan Lee MD IMG CT PROCEDURES Final Result * Hepatitis C Antibody w/Reflex to HCV RNA, Quantitative PCR (01/26/2017 9:57 AM EDT) Hepatitis C Antibody NON-REACTI VE NON-REACT MAXIMINO [facility] Signal To Cut-Off 0.01 <1.00 [facility] 01/26/2017 9:57 AM EDT 01/26/2017 10:39 AM EDT Renee Moore DROP CLIPPER LAB BLOOD ORDERABLES Final Result JULIA AGUIRRE [address] 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
[2024-12-21 18:28] LABS: Appearance Urine Clear; Color Urine Dark Yellow; Glucose Urine UA Negative (Negative); Leukocyte Esterase Urine Negative (Negative); Nitrite Urine Negative (Negative); PH 5.5 (5.0-9.0); Specific Gravity - Urine >= 1.030 (1.005-1.025); Urine Blood Negative (Negative); Urine Ketones 15 mg/dL (Negative); Urine Protein Negative (Neg-Trace)
[2024-12-21 18:31] LABS: Bacteria Urine None Seen (None Seen); Hyaline Casts Urine 0-2 /LPF (0-2); RBC Urine 0-2 /HPF (0-2); Squamous Epithelial Cell Urine 0-2 /HPF (0-2); WBC Urine 0-5 /HPF (0-5)
[2024-12-21 18:39] LABS: Alanine Aminotransferase 12 U/L (0-40); Albumin Level 3.9 g/dL (3.5-5.0); Alkaline Phosphatase 61 U/L (39-117); Anion Gap 13 (12-20); Aspartate Amino Transferase 26 U/L (5-37); Bilirubin Total 1.2 mg/dL (0.0-1.0); Blood Urea Nitrogen 21 mg/dL (9-16); Carbon Dioxide 25 mmol/L (22-29); Chloride 106 mmol/L (96-108); Estimated Glomerular Filt Rate > 60; Glucose Random 71 mg/dL (60-115); Potassium 3.9 mmol/L (3.3-5.1); Sodium 140 mmol/L (135-145); Total Protein 6.7 g/dL (6.5-8.0)
== END 2024-12-21 16:10 | disposition home or self-care (01) ==
LOC: HO.CHCLDS 16:09
PROVIDERS: Visit Provider Internal Medicine
DX: D80.1 Nonfamilial hypogammaglobulinemia (principal)
CPT/HCPCS: 36415; 80053; 81001

== ENCOUNTER 2025-05-25 15:32 | Outpatient (AMB) | payer OTHER, SELFPAY ==
[2025-05-25 15:36] VITALS: BP 118/70; PULSE 77; O2SAT 95
--- NOTE | 2025-05-25 15:36 | MHC.OFFVIS ---
Vital Signs 05/25/25 15:36 Weight 217 lb BP 118/70 Blood Pressure Location Lt brachial Position Sitting Pulse 77 Pulse Source Pulse Oximeter Pulse Oximetry (%) 95 Oxygen Delivery Method Room Air Intake Visit Reasons: COPD Allergies prednisone Allergy (Severe, Verified 05/25/25 15:40) Angioedema HPI HPI COPD: Details: 60-year-old gentleman, active 40+ pack-year smoker, followed for moderate asthma / COPD overlap syndrome, recurrent pulmonary effusions, hypogammaglobulinemia, and recurrent pulmonary infections. Patient has had several recurrences of pleural effusions, that flow tapped and showed to be sterile lymphocytic transudative. His sputum culture grew Pseudomonas several times and he required multiple treatments with p.o. Levaquin and/or IV ertapenem for recurrent pulmonary infections. He was noted to have hypogammaglobulinemia and was started on IVIG. In terms of respiratory medications he is on Trelegy and albuterol MDI/nebs. Patient is also taking bumetanide 1 mg twice a day with improved control of his lower extremity edema and pulmonary edema. He was not able to tolerate metolazone. Until approximately one-week prior to this appointment his symptoms has been excellently controlled, with last week he started to develop cough productive of yellowish sputum. [facility] Medical History (Updated 03/16/24 @ 15:59 by Jair Lala) COPD (chronic obstructive pulmonary disease) Bronchiectasis PRUITT (dyspnea on exertion) IgG deficiency PICC (peripherally inserted central catheter) in place Fatigue Splenomegaly ETOH abuse Anemia with low platelet count Pulmonary nodules Surgical History (Updated 01/27/24 @ 00:02 by Daniel Kevin) Status post left rotator cuff repair (07/15/23) History of thoracentesis Hx of repair of right rotator cuff (10/25/20) History of colonoscopy History of liver biopsy Family History Father Stroke Mother Cancer Social History Household Members: Spouse Housing: House Do you presently have visiting nurse or other home services: No Alcohol intake: never Patient Tobacco Use Status: Former Tobacco user Cigarettes Per Day: 10 Years Smoked: 35 yrs Advance Directives Date on File: 09/07/23 service: No Current occupational status: employed 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 Review of Systems Const Denies daytime sleepiness, Denies excessive sweating, Denies fatigue, Denies fever(s), Denies lethargy, Denies malaise, Denies night sweats, Denies snoring and Denies weight loss Eyes Denies blurry vision and Denies itchy eyes ENT Denies nasal congestion, Denies post nasal drip, Denies sinus pain, Denies sinus pressure and Denies other ( Thrush) Card Denies chest pain, Denies pedal edema, Denies dyspnea, Denies orthopnea and Denies paroxysmal nocturnal dyspnea Resp Reports cough, Denies hemoptysis, Reports excessive phlegm production, Denies dyspnea, Denies snoring and Denies wheezing GI Denies abdominal pain and Denies heartburn Musc Denies myalgias, Denies arthralgias and Denies joint swelling Skin/Breast Denies rash Neuro Denies memory loss and Denies seizure-like activity Psych Denies abnormal sleep pattern, Denies anxiety and Denies memory loss Endo Denies excessive sweating, Denies fatigue and Denies heat intolerance Rohit/Lymph Denies easy bruising Aller/Immun Denies itchy eyes, Denies seasonal rhinorrhea and Denies wheezing Physical Exam Vital Signs: Last Vital Signs Pulse 77 05/25/25 15:36 BP 118/70 05/25/25 15:36 Pulse Ox 95 05/25/25 15:36 Oxygen Delivery Method Room Air 05/25/25 15:36 Const General: no acute distress and alert Nutritional Appearance: not obese Orientation/consciousness: Other orientation findings ( oriented) HEENT Head: Yes atraumatic Eyes General: appearance normal, both eyes and all related structures Sclerae: sclerae normal EOM: EOMs intact bilaterally Neck Neck: Yes supple Lymphatic: no lymphadenopathy noted Resp Effort & Inspection: normal respiratory effort and no use of accessory muscles Auscultation: clear to auscultation bilaterally Cardio Rate: regular rate Rhythm: regular rhythm Heart sounds: no gallops, no murmurs and no rubs Skin General skin exam: other ( warm) Extrem General: No clubbing, No cyanosis and No edema Assessment & Plan Assessment & Plan (1) COPD (chronic obstructive pulmonary disease): Code(s): J44.9 - Chronic obstructive pulmonary disease, unspecified Category: Medical Plan: Reasonable baseline control on Trelegy, duo nebs, and albuterol MDI. Continue current regimen. Will treat acute exacerbation with a course of Levaquin. (2) Hypogammaglobulinemia: Code(s): D80.1 - Nonfamilial hypogammaglobulinemia Category: Medical Plan: With significantly reduced episodes of upper respiratory infections on IVIG. Continue IVIG. (3) Orthopnea: Code(s): R06.01 - Orthopnea Category: Medical Plan: Well controlled on current regimen of bumetanide 1 mg twice a day. Continue current regimen. Medications: Changed From ipratropium-albuterol 0.5 mg-3 mg(2.5 mg base)/3 mL 3 mL inhalation Q6H 90 days PRN 1,080 mL 0RF for wheezing J44.9 - Chronic obstructive pulmonary disease, unspecified To ipratropium-albuterol 0.5 mg-3 mg(2.5 mg base)/3 mL 3 mL inhalation Q6H PRN 90 mL 3RF for wheezing 30 days J44.9 - Chronic obstructive pulmonary disease, unspecified Coding Level of Care Code Est Pt Level 4 (43101) Complex EM visit Add On G2211 Diagnoses COPD (chronic obstructive pulmonary disease) J44.9 Hypogammaglobulinemia D80.1 Orthopnea R06.01
== END 2025-05-25 16:10 | disposition home or self-care (01) ==
LOC: HO.HPS 15:33
PROVIDERS: PCP Internal Medicine; Visit Provider Internal Medicine Pulmonary Disease
DX: J44.9 Chronic obstructive pulmonary disease, unspecified (principal); D80.1 Nonfamilial hypogammaglobulinemia; R06.01 Orthopnea
CPT/HCPCS: 99214; G2211

== ENCOUNTER 2025-08-14 16:39 | Outpatient (REF) | payer OTHER, SELFPAY ==
--- NOTE | ~2025-08-14 | XR_ITS ---
EXAMINATION: XR CHEST CLINICAL INFORMATION: R05.3 - Chronic cough COMPARISON: Chest 08/15/2024 TECHNIQUE: 2 views of the chest were obtained. FINDINGS: The lungs are expanded with bilateral blunting of CP angle and bibasilar haziness.. There is increased bronchovascular/interstitial markings likely chronic changes unchanged to 08/15/2024. Heart size is normal. Pulmonary vascularity is prominent. There is mild spondylosis dorsal spine. No aggressive lytic or sclerotic process. XR/XR chest 2V IMPRESSION: There is bibasilar haziness with blunting of CP angle likely trace pleural effusion or thickening. Chronic bilateral interstitial disease unchanged to previous study Electronically signed by: José Miguel Quintero MD 08/15/2025 07:37 AM NICOLE
--- OUTSIDE RECORDS SUMMARY | 2025-08-14 18:03 | XMS_ITS | Encounter Summary ---
Author Organization [facility] Address [address] [place] [address] Care Team Providers Care Log Chipper Name Role Phone Jonel Forrester Primary Care Provider Encounter Details Date Type Department Care Team ([facility] Contact Info) Description 09/08/2022 Telephone [facility] Patient Access Center [address] [place] [address] Telephone Intake, Staff Social History Tobacco Use [...] on filedocumented in this encounter Care Teams Log Chipper Relationship Specialty Start Date End Date Jonel Forrester [address] [place] [address] PCP - General 03/05/17 documented as of this encounter
--- OUTSIDE RECORDS SUMMARY | 2025-08-14 18:03 | XMS_ITS | Clinical Summary ---
Author Organization [facility] Address [address] [facility] [place] [address] Care Team Providers Care Supervisor Safety Deposit Name Role Phone Unavailable Primary Care Provider [...]
--- OUTSIDE RECORDS SUMMARY | 2025-08-14 18:03 | XMS_ITS | Encounter Summary ---
Author Organization [employer] Address [address] [facility] 7 [place] [address] Care Team Providers Care Administrative Underwriter Name Role Phone Jonel Forrester MD Primary Care Provider [phone] Reason for Visit * Reason Onset Date Comments Med Refill 07/01/2023 Encounter Details Date Type Department Care Team ([facility] st Contact Info) Description 07/01/2023 Telephone [facility] [address] [place] [address] Jonel Forrester MD [address] [place] [phone] Med Refill Social History Tobacco Use Types [...] Care Team (Late st Contact Info) Description 08/22/2025 3:15 PM EST Office Visit [facility] MED & PEDS [address] [place] [address] Jonel Forrester MD [address] [place] [address] documented as of this encounter Visit Diagnoses Not on filedocumented in this encounter Additional Health Concerns Assessment Noted Time PHQ-9 Depression Total Score: 0 08/12/20 22 2:31 PM EST documented as of this encounter Care Teams Administrative Underwriter Relationship Specialty Start Date End Date Jonel Forrester MD [address] [place] [address] PCP - General Internal Medicine 01/23/14 documented as of this encounter
--- OUTSIDE RECORDS SUMMARY | 2025-08-14 18:03 | XMS_ITS | Encounter Summary ---
Author Organization [employer] Address [address] [facility] 7t [place] [address] Care Team Providers Care Coil Binder Name Role Phone Jonel Forrester MD Primary Care Provider [phone] Encounter Details Date Type Department Care Team ([facility] st Contact Info) Description 06/06/2024 Orders Only [facility] MED [facility] PEDS [address] [place], [place] [phone] Jonel Forrester MD [address] [place] [address] Social History Tobacco Use Types Packs/Day Years [...] Description 08/22/2025 3:15 PM EST Office Visit [facility] MED & PEDS [address] [place] [address] Jonel Forrester MD [address] [place] [address] documented as of this encounter Visit Diagnoses Not on filedocumented in this encounter Additional Health Concerns Assessment Noted Time PHQ-9 Depression Total Score: 0 08/12/20 22 2:31 PM EST documented as of this encounter Care Teams Coil Binder Relationship Specialty Start Date End Date Jonel Forrester MD [address] [place] [address] PCP - General Internal Medicine 01/23/14 documented as of this encounter
--- OUTSIDE RECORDS SUMMARY | 2025-08-14 18:03 | XMS_ITS | Encounter Summary ---
Author Organization [employer] Address [address] [facility] 7t [place] [address] Care Team Providers Care Train Dispatcher Name Role Phone Jonel Forrester MD Primary Care Provider [phone] Encounter Details Date Type Department Care Team (Late st Contact Info) Description 06/17/2023 Abstract [facility] MEDICINE [address] [place] [address] Jonel Forrester MD [address] [place] [address] Social History Tobacco Use Types Packs/Day Years [...] Description 08/22/2025 3:15 PM EST Office Visit [facility] MED & PED[facility] [address] [place] [address] Jonel Forrester MD [address] [place] [address] documented as of this encounter Procedures Procedure [...] documented as of this encounter Care Teams Train Dispatcher Relationship Specialty Start Date End Date Jonel Forrester MD [address] [place] [address] PCP - General Internal Medicine 01/23/14 documented as of this encounter
--- OUTSIDE RECORDS SUMMARY | 2025-08-14 18:03 | XMS_ITS | Clinical Summary ---
Author Organization [employer] Address [address] [place] [address] 7[address] [place] [address] Care Team Providers Care Pumping Plant Operator Name Role Phone Jonel Forrester MD Primary Care Provider +1- [phone] Allergies No known active allergies Medications ipratropium-al buterol (Duo-Neb) 0.5-2.5 mg/3 mL nebulizer solution INHALE 3 ML EVERY 4 TO 6 HOURS NEEDED FOR WHEEZING 2 Active albuterol (2.5 MG/3ML) 0.083% nebulizer solution USE 1 VIAL VIA NEBULIZER EVERY 4 TO 6 HOURS NEEDED FOR SHORTNESS OF BREATH OR WHEEZING 3 Active bumetanide (Bumex) 1 MG tablet [...] cap. 16 g 11 5 026 Active ibuprofen 800 MG tabletIndicati ons:Chronic midline low back pain without sciatica TAKE 1 TABLET (800 MG) BY MOUTH IF NEEDED IN THE MORNING, AT NOON, AND AT BEDTIME FOR MODERATE PAIN. 90 tablet 2 Active Active Problems Problem Noted Date Diagnosed Date Hypogammaglobulinemia 06/02/2024 Assessment & Plan (07/05/2024 4:58 PM EST): To follow-up with [facility] allergy as scheduled. No acute intervention done today. Abnormal PFT 11/18/2022 Hemoptysis 12/18/2019 Other nonspecific abnormal finding of lung field 12/18/2019 Pneumonia 12/18/2019 Bronchitis 05/06/2018 COPD exacerbation (CMS/HCC) 08/26/2017 Hepatomegaly 01/26/2017 Splenomegaly 01/26/2017 Lymphadenopathy 12/17/2016 Thrush 12/02/2016 Cough 11/26/2016 Thrombocytopenia 11/26/2016 Alcohol-induced thrombocytopenia (CMS/HCC) ([facility]) 07/16/2016 Encounters Date Type Department Care Team Description 07/17/2025 Telephone [facility] [address] [place] [address] Jonel Forrester MD Appointment 06/18/2025 Refill [facility] [address] [place] [address] Jonel Forrester MD Chronic midline low back pain without sciatica from Last 3 Months Immunizations Immunization Administration Dates Next Due Pneumococcal Polysaccharide PPSV23 [...] Sign Reading Time Taken Comments Blood Pressure 119/71 12/21/2024 3:24 PM EDT Pulse 95 12/21/2024 3:24 PM EDT Temperature 36.7 C (98 F) 12/21/2024 3:24 PM EDT Respiratory Rate 20 12/21/2024 3:24 PM EDT Oxygen Saturation 93% 12/21/2024 3:24 PM EDT Inhaled Oxygen Concentration - - Weight 103 kg (226 lb) 12/21/2024 3:24 PM EDT Height 188 cm (6' 2 ) 12/21/2024 3:24 PM EDT Body Mass Index 29.02 12/21/2024 3:24 PM EDT Plan of Treatment Upcoming Encounters Date Type Department Care Team (Late st Contact Info) Description 08/22/2025 3:15 PM EST Office Visit [facility] PEDS [address] [place], [place] [phone] Jonel Forrester MD [address] [place], [place] [phone] Health Maintenance Due Date Last Done Comments CT Colonography 1964 FIT DNA/Cologuard 1964 FIT 1964 FOBT 1964 Sigmoidoscopy 1965 Disability Screening 1964 COVID-19 Vaccine (#1) 02/24/1969 Hepatitis A Vaccines (1 of 2 - Risk 2-dose series) 02/24/1983 Zoster Vaccines (1 of 2) 02/24/1983 RSV Patients and Patients Aged 60 years or older (1 - Risk 50-74 years 1-dose series) 02/24/2014 Pneumococcal Vaccine: 50+ Years (2 of 2 - PCV) 06/05/2014 06/05/2013 Colonoscopy 06/13/2019 06/13/2014 Colorectal Cancer Screening 06/13/2019 Hepatitis B Vaccines (1 of 3 - Risk 3-dose series) 2024 Depression Monitoring 03/21/2025 09/21/2024 , 09/21/2024 Influenza Vaccine (#1) 2025 Alcohol/Substance Use Screening 09/21/2025 09/21/2024 SDOH Screening 09/21/2025 09/21/2024 Tobacco Screening 12/21/2025 12/21/2024 Lipid Panel 08/24/2028 08/24/2023, 09/24/2021, 03/26/2021 DTaP/Tdap/Td [...] patient's age to complete this topic Meningococcal B Vaccine Aged Out No l onger eligible based on patient's age to complete [...] Procedure Name Priority Date/Time Associated Diagnosis Comments LIPID PANEL, STANDARD Routine 08/24/2023 10:22 AM EST Splenomegaly HEPATITIS C ANTIBODY Routine 01/14/2023 3:47 PM EDT HIV ANTIBODY/ANTIGEN ([place] D[facility]) Routine 01/14/2023 3:47 PM EDT HM COLONOSCOPY Routine 06/13/2014 from Last 3 Months or Most Recently Relevant to Health Maintenance Results * (ABNORMAL) Lipid Panel, Standard (08/24/2023 10:22 AM EST) Triglycerides 88 <150 mg/dL [facility] Comment:Desirable Triglyceri de: less than 150 mg/dLBorderline High Triglyceride 150-199 mg/dLHigh Triglyceride: 200-499 mg/dLVery High Triglyceride: greater than or equal to 5OO mg/dL Cholesterol 204(H) <200 mg/dL [facility] Comment:Desirable Cholestero l: less than 200 mg/dLBorderline High Cholesterol: 200-239 mg/dLHigh Cholesterol: greater than 239 mg/dL LDL Cholesterol Calculated 137(H) <100 mg/dL [facility] Comment:Desirable LDL: less than 100 mg/dLNear Optimal/Above Optimal LDL: 110- 129 mg/dLBorderline High LDL: 130-159 mg/dLHigh LDL: 160-189 mg/dLVery High LDL: greater than or equal to 190 mg/dL HDL Cholesterol 50 >40 mg/dL [facility] Comment:Desirable HDL: great er than 40 mg/dL Note: This HDL assay may give artificially low results in patients with liver disease. Blood Venous blood specimen / Unknown 08/24/2023 10:22 AM EST 08/24/2023 10:22 AM EST us Jonel Forrester MD LAB BLOOD ORDERABLES Final Result [facility] [address] [place] [phone] * Hepatitis C Ab (01/14/2023 3:47 PM EDT) Hepatitis C Antibody Nonreactive Nonreactive [facility] Comment:Antibodies to HCV no t detected; does not exclude early acuteHCV infection. 01/14/2023 3:47 PM EDT 01/14/2023 3:48 PM EDT [facility] External Provider LAB BLO OD ORDERABLES Final Result Performing Organization Address [facility]/ZIP Co de Phone Number [facility] [address] [place] [address] [phone] * HIV Ab/Ag (KRUNAL COUNT INCLUDES THE [facility]) (01/14/2023 3:47 PM EDT) HIV AB/AG Nonreactive Nonreactive [facility] Comment:HIV-1 p24 Ag and/or HIV-1/HIV-2 Ab not detected.A test result that is nonreactive does not exclude thepossibility of exposure to or infection with HIV-1 and/orHIV-2. Nonreactive results in this assay for individualswith prior exposure to HIV-1 and/or HIV-2 may be due toantigen and antibody levels that are below the limit ofdetection of this assay.The [employer] HIV Ag/Ab Combo assay result andsupplemental assay results should be interpreted inconjunction with the patient's clinical presentation,history and other laboratory results. If the results areinconsistent with clinical evidence, additional testing issuggested to confirm the result. 01/14/2023 3:47 PM EDT 01/14/2023 3:48 PM EDT [facility] External Provider LAB BLO OD ORDERABLES Final Result Performing Organization Address [facility]/ZIP Co de Phone Number [facility] [address] [place] [address] [phone] * Hm Colonoscopy (06/13/2014) Colonoscopy Normal Normal Historical Provider HEALTH MAINTENANCE Final Result from Last 3 Months or Most Recently Relevant to Health Maintenance Insurance , [address] [place] [address] Care Teams Pumping Plant Operator Relationship Specialty Start Date End Date Jonel Forrester MD [address] [place] [phone] PCP - General Internal Medicine 01/23/14
--- OUTSIDE RECORDS SUMMARY | 2025-08-14 18:03 | XMS_ITS | Encounter Summary ---
Author Organization [employer] Address [address] [facility] 7t [place] [address] Care Team Providers Care Private Pilot Name Role Phone Jonel Forrester MD Primary Care Provider [phone]- [phone] Reason for Visit * Reason Onset Date Comments Referral 07/26/2024 Encounter Details Date Type Department Care Team ([facility] st Contact Info) Description 07/26/2024 Telephone [facility] [address] [place] [address] Jonel Forrester MD [address] [place] [address] Referral Social History Tobacco Use Types Packs/Day [...] ask PCP a new order. Callback number [phone] documented in this encounter Plan of Treatment Upcoming Encounters Date Type Department Care Team ([facility] st Contact Info) Description 08/22/2025 3:15 PM EST Office Visit [facility] MED & PEDS [address] [place] [address] Jonel Forrester MD [address] [place] [address] documented as of this encounter Visit Diagnoses Not on filedocumented in this encounter Additional Health Concerns Assessment Noted Time PHQ-9 Depression Total Score: 0 08/12/20 2:31 PM EST documented as of this encounter Care Teams Private Pilot Relationship Specialty Start Date End Date Jonel Forrester MD [address] [place] [address] PCP - General Internal Medicine 01/23/14 documented as of this encounter
--- OUTSIDE RECORDS SUMMARY | 2025-08-14 18:03 | XMS_ITS | Encounter Summary ---
Author Organization [employer] Address [address] [facility] 7t [place] [address] Care Team Providers Care Nutrition Therapist Name Role Phone Jonel Forrester MD Primary Care Provider [phone] [phone] Encounter Details Date Type Department Care Team (Late st Contact Info) Description 06/11/2023 Abstract [facility] [address] [place] [address] Jonel Forrester MD [address] [place] [address] Social History Tobacco Use Types Packs/Day Years [...] Description 08/22/2025 3:15 PM EST Office Visit [facility] MED & PEDS [address] [place] [address] Jonel Forrester MD [address] [place] [address] documented as of this encounter Visit Diagnoses Not on filedocumented in this encounter Additional Health Concerns Assessment Noted Time PHQ-9 Depression Total Score: 0 08/12/20 22 2:31 PM EST documented as of this encounter Care Teams Nutrition Therapist Relationship Specialty Start Date End Date Jonel Forrester MD [address] [place] [address] PCP - General Internal Medicine 01/23/14 documented as of this encounter
--- OUTSIDE RECORDS SUMMARY | 2025-08-14 18:03 | XMS_ITS | Encounter Summary ---
Author Organization [employer] Address [address] [place] [address] 7 [place] [address] Care Team Providers Care Commercial Review Appraiser Name Role Phone Jonel Forrester MD Primary Care Provider [phone] [phone] Reason for Referral * Hospital - Outpatient (Routine) - Authorized Specialty Diagnoses / Procedures Referred By Contac t Referred To Contact Respiratory Therapy Diagnoses Chronic cough Hypoxemia Procedures Pulse oximetry, overnight Jonel Forrester MD [address] [place] [address] Phone: tel: fax: Referral ID Status Reason Start Date Expiration Date V isits Requested Visits Authorized [id number] Authorized 11/08/2024 11/08/2025 1 1 Encounter Details Date Type Department Care Team (Late st Contact Info) Description 11/08/2024 Orders Only [facility] [address] [place] [address] Jonel Forrester MD [address] [place] [address] Chronic cough (Primary Dx); Hypoxemia Social History [...] Upcoming Encounters Date Type Department Care Team ([facility] st Contact Info) Description 08/22/2025 3:15 PM EST Office Visit [facility] MED & PEDS [address] [place] [address] Jonel Forrester MD [address] [place] [address] Scheduled Orders Name Type Priority Associated Diagnoses [...] as of this encounter Care Teams Commercial Review Appraiser Relationship Specialty Start Date End Date Jonel Forrester MD [address] [place] [phone] PCP - General Internal Medicine 01/23/14 documented as of this encounter
--- OUTSIDE RECORDS SUMMARY | 2025-08-14 18:03 | XMS_ITS | Clinical Summary ---
Author Organization [facility] Address [address] [place] [address] Care Team Providers Care Junior Paralegal Name Role Phone Jonel Forrester Primary Care Provider [phone] Allergies No known active allergies Medications ferrous [...] 80 09/16/2022 10:50 AM EST Temperature 37.1 C (98.7 F) 03/09/2017 8:35 AM EDT Respiratory Rate 20 09/16/2022 10:50 AM EST [...] DTaP,Tdap,and Td Vaccines (1 - Tdap) 02/24/1986 RSV Vaccine (60+ years old and patients) (1 - Risk 50-74 years 1-dose series) 02/24/2014 Zoster Vaccines (1 of 2) 02/24/2014 Pneumococcal Vaccine: 50+ Years (2 of 2 - PCV) 06/05/2014 06/05/2013 CT Lung Cancer Screening (Baseline) 06/12/2018 06/12/2017, 12/02/2016 Alcohol/Substance Use Screening 08/17/2024 Depression Screening and Follow-Up 08/17/2024 Social Drivers of Health Annual Screening 08/17/2024 Influenza Vaccine (#1) 2025 COVID-19 Vaccine (1 - 2024-2 6 season) 2025 Hepatitis C Screening Completed 01/26/2017 CT Lung Cancer Screening (12 months, previous LungRADS 1 or 2) Discontinued 06/12/2017, 12/02/2016 Hepatitis B Vaccines Aged Out No long er eligible based on patient's age to complete this topic Procedures * Due to [place] state law, this organization might not be sharing negative HIV tests. Procedure Name Priority Date/Time Associated Diagnosis Comments CT CHEST W CONTRAST Routine 06/12/2017 5 :07 PM EDT Cough Lymphadenopathy Hepatomegaly HEPATITIS C ANTIBODY W/REFLEX TO HCV RNA, QUANTITATIVE PCR Routine 01/26/2017 9:57 AM EDT from Last 3 Months or Most Recently Relevant to Health Maintenance Results * Due to [place] state law, this organization might not be sharing negative HIV tests. * CT Chest W Contrast (06/12/2017 5:07 PM EDT) Anatomical Region Laterality Modality Body Computed Tomogra phy 06/15/2017 2:29 PM EDT Impressions 06/15/2017 2:46 PM EDT IMPRESSION: 1. There is mild improvement of the right hilar and subcarinal lymphadenopathy. Other lymph nodes in the mediastinum without change. 2. Improvement of the patchy nodules of the right upper lobe, but otherwise there is no significant interval change in the tree-in-bud opacities from end bronchial inflammation/bronchiolitis as congested in the prior study. No consolidation or pleural effusion is noted. There is also no change in the mild bronchiectasis of the lower lobes. If etiology of the bronchiolitis/inflammation is not known, consider bronchoscopy for further evaluation. [id number] Narrative 06/15/2017 2:[address] CHEST W CONTRAST CLINICAL INFORMATION: Initial breath. Cough, lymphadenopathy from prior chest CT. TECHNIQUE: Contrast [...] the prior chest CT without change 4/139. Small tree-in-bud opacities are seen in the right middle lobe and right lower lobe that were present in the prior exam and slightly more prominent in the right upper lobe posteriorly compared to prior exam. Some of the patchy nodules of the right upper lobe have resolved. Minimal tree-in-bud opacities are seen in the left upper lobe anteriorly also present in the prior exam. Multiple tree-in-bud opacities of the left lower lobe unchanged. No consolidation, pneumothorax or pleural effusion is seen. A left upper lobe noncalcified 6 mm nodule is seen medially 114 also 6 mm in the prior exam . There is mild bronchiectasis of the lower lobes. MEDIASTINUM: There is ectasia of the ascending thoracic aorta measuring 3.6 cm as in the prior exam. There has been interval decrease in the size of the right hilar lymph node measuring 1.5 cm compared to 1.7 cm in short axis and a subcarinal lymph node measuring 1.2 cm compared to 1.7 cm in the prior exam. Other mediastinal lymph nodes are unchanged. No axillary lymphadenopathy is noted. There is enough contrast in the central pulmonary arteries to exclude emboli. UPPER ABDOMEN (limited): There is unchanged splenomegaly. The adrenal glands are incompletely visualized. There is residual hypodensity in the posterior right lobe of the liver that is partially visualized corresponding to the site of the large laceration seen in the study of February. No pericapsular collection is seen in the visualized portions of the liver. BONES: No destructive bone lesion is noted. Procedure [...] nodule is seen in the right middle lobe8180 and also present in the prior chest CT without change 139. Affnieqit-zo-sfd opacities are seen in the right middle lobe and right lowerlobe that were present in the prior exam and slightly more prominent inthe right upper lobe posteriorly compared to prior exam. Some of thepatchy nodules of the right upper lobe have resolved. Minimal kbws-ar-stamkvgcxnsv are seen in the left upper lobe anteriorly also present in theprior exam. Multiple tree-in-bud opacities of the left lower lobeunchanged. No consolidation, pneumothorax or pleural effusion is seen. Aleft upper lobe noncalcified 6 mm nodule is seen medially 114 also 6 mmin the prior exam . [...] is no significant interval change in the eklv-oo-vimseaoqilld from end bronchial inflammation/bronchiolitis as congested inthe prior study. No consolidation or pleural effusion is noted. There isalso no change in the mild bronchiectasis of the lower lobes. If etiologyof the bronchiolitis/inflammation is not known, consider bronchoscopy forfurther evaluation. [id number] us Wan Lee MD IM CT PROCEDURES Final Result * Hepatitis C Antibody w/Reflex to HCV RNA, Quantitative PCR (01/26/2017 9:57 AM EDT) Hepatitis C Antibody NON-REACTI VE NON-REACT MAXIMINO JULIA AGUIRRE Signal To Cut-Off 0.01 <1.00 JULIA AGUIRRE 01/26/2017 9:57 AM EDT 01/26/2017 10:39 AM EDT Renee Moore [facility] [employer] LAB BLOOD ORDERABLES Final Result JULIA AGUIRRE [address] [facility] 3[address], [place] [address], [place] [phone] from Last 3 Months or Most Recently Relevant to Health Maintenance Insurance HSNO/FREE CARE Advance Directives Documents on File Type Date Recorded Patient Data Sme Expl anation Health Care Proxy 05/29/2017 10:55 AM Care Teams Junior Paralegal Relationship Specialty Start Date End Date Jonel Forrester [address] [place] [phone] [facility] - General 03/05/17
--- OUTSIDE RECORDS SUMMARY | 2025-08-14 18:03 | XMS_ITS | Encounter Summary ---
Author Organization [employer] Address [address] [place] [address] Care Team Providers Care Reinforcing Rod Layer Name Role Phone Jonel Forrester MD Primary Care Provider [phone]- [phone] Reason for Visit * Reason Comments Med Refill Encounter Details Date Type Department Care Team ([facility] Contact Info) Description 04/06/2023 Refill [facility] MED & PEDS [address] [place] [address] Jonel Forrester MD [address] [place] [address] Oral thrush Social History Tobacco Use Types [...] Upcoming Encounters Date Type Department Care Team ([facility] Contact Info) Description 08/22/2025 3:15 PM EST Office Visit [facility] PEDS [address] [place] [address] Jonel Forrester MD [address] [place] [address] documented as of this encounter Visit Diagnoses Diagnosis Oral thrush Candidiasis of mouth documented in this encounter Additional Health Concerns Assessment Noted Time PHQ-9 Depression Total Score: 0 08/12/20 22 2:31 PM EST documented as of this encounter Care Teams Reinforcing Rod Layer Relationship Specialty Start Date End Date Jonel Forrester MD [address] [place] [address] PCP - General Internal Medicine 01/23/14 documented as of this encounter
--- OUTSIDE RECORDS SUMMARY | 2025-08-14 18:04 | XMS_ITS | Encounter Summary ---
Author Organization [employer] Address [address] [facility] 7 [place] [address] Care Team Providers Care Road Mixer Operator Name Role Phone Jonel Forrester MD Primary Care Provider [phone]- [phone] Reason for Visit * Reason Onset Date Comments Referral 09/05/2022 Encounter Details Date Type Department Care Team ([facility] st Contact Info) Description 09/05/2022 Telephone [facility] MED & PEDS [address] [place] [address] Jonel Forrester MD [address] [place] [address] Referral Social History Tobacco Use Types Packs/Day [...] Miscellaneous Notes * Telephone Encounter - Arina Jenkins - 09/05/2022 12:06 PM EST Outbound call to Jennie Gandara ( spouse ) to advised real estate underwriter spoke to Apartment Leasing 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 No answer. Left VM. Please advise pt is return call. documented in this encounter Plan of Treatment Upcoming Encounters Date Type Department Care Team ([facility] st Contact Info) Description 08/22/2025 3:15 PM EST Office Visit [facility] MED & PEDS [address] [place] [address] Jonel Forrester MD [address] [place] [address] documented as of this encounter Visit Diagnoses Not on filedocumented in this encounter Additional Health Concerns Assessment Noted Time PHQ-9 Depression Total Score: 0 08/12/20 22 2:31 PM EST documented as of this encounter Care Teams Road Mixer Operator Relationship Specialty Start Date End Date Jonel Forrester MD [address] [place] [address] PCP - General Internal Medicine 01/23/14 documented as of this encounter
--- OUTSIDE RECORDS SUMMARY | 2025-08-14 18:04 | XMS_ITS | Encounter Summary ---
Author Organization [employer] Address [address] [facility] 7 [place] [address] Care Team Providers Care Airconditioning Drafting Officer Name Role Phone Jonel Forrester MD Primary Care Provider [phone] Reason for Visit * Reason Onset Date Comments Call Back Request 08/19/2024 Encounter Details Date Type Department Care Team ([facility] st Contact Info) Description 08/19/2024 Telephone [facility] MED[facility]INE [address] [place] [address] Jonel Forrester MD [address] [place] [phone] Call Back Request Social History Tobacco Use [...] 08/22/2024 10:48 AM EST TC placed to [facility] Radiology who confirms that the pt has [...] before CT scan. Please contact Spouse at [phone]. documented in this encounter Plan of Treatment Upcoming Encounters Date Type Department Care Team (Late st Contact Info) Description 08/22/2025 3:15 PM EST Office Visit [facility] MED & PEDS [address] [place] [address] Jonel Forrester MD [address] [place] [address] documented as of this encounter Visit Diagnoses Not on filedocumented in this encounter Additional Health Concerns Assessment Noted Time PHQ-9 Depression Total Score: 0 08/12/20 22 2:31 PM EST documented as of this encounter Care Teams Airconditioning Drafting Officer Relationship Specialty Start Date End Date Jonel Forrester MD [address] [place] [phone] PCP - General Internal Medicine 01/23/14 documented as of this encounter
--- OUTSIDE RECORDS SUMMARY | 2025-08-14 18:04 | XMS_ITS | Encounter Summary ---
Author Organization [employer] Address [address] [facility] [address] [place] [address] Care Team Providers Care Project Technician Name Role Phone Jonel Forrester MD Primary Care Provider [phone] Encounter Details Date Type Department Care Team ([facility] st Contact Info) Description 08/22/2024 Orders Only [facility]EDS [address] [place], [place] [phone] Jonel Forrester MD [address] [place] [address] Thrombocytopenia ([facility]) (Primary Dx) Social History Tobacco Use [...] Description 08/22/2025 3:15 PM EST Office Visit [facility] [address] [place] [address] Jonel Forrester MD [address] [place] [address] documented as of this encounter Procedures Procedure Name Priority Date/Time Associated Diagnosis Comments CREATININE, SERUM Routine 09/07/2024 11: 09 AM EST Thrombocytopenia (CMS/HCC) UREA NITROGEN (BUN) Routine 09/07/2024 1 1:09 AM EST Thrombocytopenia (CMS/HCC) documented in this encounter Results * Creatinine, Serum (09/07/2024 11:09 AM EST) Creatinine, Serum 0.88 0.5 - 1.4 mg/dL [facility] Estimated Glomerular Filt Rate >60 [facility] Comment:Chronic Kidney Disea se: Estimated GFR < 60 mL/min/1.03s7Izleil Kidney Disease: Estimated GFR < 15 mL/min/1.73m2 Blood Venous blood specimen / Unknown 09/07/2024 11:09 AM EST 09/07/2024 11:09 AM EST us Jonel Forrester MD LAB BLOOD ORDERABLES Final Result [facility] [address] [place] [address] [phone] * (ABNORMAL) BUN (Blood Urea Nitrogen) (09/07/2024 11:09 AM EST) Urea Nitrogen (BUN) 18(H) 9 - 16 mg/dL [facility] Blood Venous blood specimen / Unknown 09/07/2024 11:09 AM EST 09/07/2024 11:09 AM EST Jonel Forrester MD LAB BLOOD ORDERABLES Final Result [facility] [address] [place] [address] [phone] documented in this encounter Visit Diagnoses Diagnosis Thrombocytopenia (CMS/HCC)- Primary Unspecified thrombocytopenia documented in this encounter Additional Health Concerns Assessment Noted Time PHQ-9 Depression Total Score: 0 08/12/20 22 2:31 PM EST documented as of this encounter Care Teams Project Technician Relationship Specialty Start Date End Date Jonel Forrester MD [address] [place] [phone] PCP - General Internal Medicine 01/23/14 documented as of this encounter
--- OUTSIDE RECORDS SUMMARY | 2025-08-14 18:04 | XMS_ITS | Encounter Summary ---
Author Organization [employer] Address [address] [facility] [address] [place] [address] Care Team Providers Care Duty Officer Name Role Phone Jonel Forrester MD Primary Care Provider [phone] Encounter Details Date Type Department Care Team ([facility] Contact Info) Description 08/04/2022 Orders Only [facility] MED[facility]INE [address] [place] [address] Jonel oFrrester MD [address] [place], [place] [phone] Social History Tobacco Use Types Packs/Day Years [...] Department Care Team (Late Contact Info) Description 08/22/2025 3:15 PM EST Office Visit [facility] MED [facility] PEDS [address] [place] [address] Jonel Forrester MD [address] [place], [place] [phone] documented as of this encounter Visit Diagnoses Not on filedocumented in this encounter Care Teams Duty Officer Relationship Specialty Start Date End Date Jonel Forrester MD [address] [place] [phone] PCP - General Internal Medicine 01/23/14 documented as of this encounter
--- OUTSIDE RECORDS SUMMARY | 2025-08-14 18:04 | XMS_ITS | Encounter Summary ---
Author Organization [employer] Address [address] [facility] [address] [place] [address] Care Team Providers Care Customer Operations Representative Name Role Phone Jonel Forrester MD Primary Care Provider [phone]- [phone] Encounter Details Date Type Department Care Team ([facility] Contact Info) Description 09/11/2022 Orders Only [facility] MED[facility]INE [address] [place] [address] Jonel Forrester MD [address] [place], [place] [phone] Hemoptysis (Primary Dx); Pneumonia of both lungs [...] Upcoming Encounters Date Type Department Care Team ([facility] Contact Info) Description 08/22/2025 3:15 PM EST Office Visit [facility] MED & PEDS [address] [place] [address] Jonel Forrester MD [address] [place] [address] documented as of this encounter Visit Diagnoses Diagnosis Hemoptysis- Primary Pneumonia of both lungs due to infectious organism, unspecified part of lung documented in this encounter Additional Health Concerns Assessment Noted Time PHQ-9 Depression Total Score: 0 08/12/20 22 2:31 PM EST documented as of this encounter Care Teams Customer Operations Representative Relationship Specialty Start Date End Date Jonel Forrester MD [address] [place] [address] PCP - General Internal Medicine 01/23/14 documented as of this encounter
== END 2025-08-14 16:40 ==
LOC: HO.XRAY 16:39
PROVIDERS: PCP Internal Medicine; Visit Provider Internal Medicine Pulmonary Disease
DX: R05.3 Chronic cough (principal)
CPT/HCPCS: 71046

== ENCOUNTER → 2025-08-14 16:45 | Outpatient (BNV) | payer OTHER, SELFPAY | PROVIDERS: PCP Internal Medicine; Visit Provider Radiology Diagnostic Radiology | DX: J84.9 Interstitial pulmonary disease, unspecified (principal) | CPT/HCPCS: 71046 ==